=== PATIENT | female | born 1940 | race Caucasian/White ===

== ENCOUNTER → 2017-06-15 | Outpatient (CLI) | payer MEDICARE, BC ==
--- NOTE | 2017-06-15 15:35 | MR ---
MR brain without contrast HISTORY: Memory loss, mental status changes Multiplanar multisequence imaging obtained through the brain. There is no comparison. There is no restricted diffusion. There is no hemorrhage or hydrocephalus. Cortical atrophy is likely age-related. Scattered periventricular and subcortical and juxtacortical white matter hyperintensiti es are present on inversion recovery and T2-weighted sequences. There are normal vascular flow voids. The orbits show symmetric appearance. Cerebellopontine angles, corpus callosum, pituitary, cervical medullary junction are within normal limits. Hyperostosis frontalis interna changes present along the inner table of the frontal calvarium. Paranasal sinuses and mastoid air cells are well aerated. IMPRESSION: Age-related changes of atrophy and probable chronic small vessel ischemia.
== END | disposition home or self-care (01) ==
LOC: RADMRIMAIN 11:42
PROVIDERS: ATTEND Psychiatry & Neurology Neurology
DX: G31.1 Senile degeneration of brain, not elsewhere classified (principal)
CPT/HCPCS: 70551

== ENCOUNTER 2018-05-06 00:47 | Inpatient (IN) | payer MEDICARE, BC ==
[2018-05-06] MEDS ORDERED: HEPARIN SODIUM,PORCINE 5,000 UNIT/ML 1 ML VIAL IV STA (00:55)
[2018-05-06] MEDS ORDERED: SODIUM CHLORIDE 0.9% 1,000 ML IV STA ×2 (00:55)
--- NOTE | 2018-05-06 00:55 | ED ---
Chest Pain HPI - General Chief Complaint: Chest Pain Stated Complaint: STEMI Time Seen by Provider: 05/06/18 00:52 Source: EMS Mode of arrival: ambulatory Limitations: no limitations - History of Present Illness Initial Comments: Reena is a 78-year-old female with a history of hypertension, hyperlipidemia, diabetes who presents the emergency department today via EMS for evaluation of chest pain. Patient describes the pain as left-sided chest pain radiating to her shoulder. Pain started approximately an hour and a half ago. Was not associated with any dyspnea but was associated with diaphoresis and feeling very unwell. son at bedside does state that yesterday his mother was complaining of similar pain but in the right shoulder. Not associated with shortness of breath palpitations or lightheadedness. She did not have this evaluated. He also states that patient is currently being treated for bladder cancer, she has gross hematuria and scheduled to have a surgery next month. - Related Data Home Medications Medication Instructions Recorded Confirmed Atenolol [Tenormin] 25 mg PO DAILY 09/17/14 09/17/14 Baclofen [Lioresal] 10 mg PO TID PRN 09/17/14 09/17/14 [place]ito Cit/Mag/D3/Zn/Lead Athlete/Nadeem/Bor 1 tab PO DAILY 09/17/14 09/17/14 [Citracal-Vit D + Magnesium Tab] Cholecalciferol [Vitamin D3] 1,000 unit PO DAILY 09/17/14 09/17/14 Cinnamon Bark [Cinnamon] 1,000 mg PO DAILY 09/17/14 09/17/14 Clotrimazole/Betamethasone Dip 1 cream TOPICAL DIRECTED PRN 09/17/14 09/17/14 [Lotrisone Cream] Felodipine ER [Plendil] 5 mg PO DAILY 09/17/14 09/17/14 Insulin Glargine,Hum.rec.anlog 60 unit SQ DAILY 09/17/14 09/17/14 [Lantus Solostar] Losartan/Hydrochlorothiazide 1 each PO DAILY 09/17/14 09/17/14 [Hyzaar 100-25 Tablet] Omeprazole [PriLOSEC] 20 mg PO AC-SUPPER 09/17/14 09/17/14 Pravastatin Sodium [Pravachol] 40 mg PO HS 04/03/15 04/03/15 Previous Rx's Medication Instructions Recorded Aspirin 325 mg PO BID #1 tab 09/20/14 Docusate [Colace] 100 mg PO BID #60 capsule 09/20/14 HYDROcodone/APAP 5-325MG [[place] 1 - 2 each PO Q6HR PRN #90 tab 09/20/14 5-325] Allergies Allergy/AdvReac Type Severity Reaction Status Date / Time Penicillins AdvReac Mild Unknown Verified 05/06/18 00:52 Review of Systems ROS Statement: Those systems with pertinent positive or pertinent negative responses have been documented in the HPI. ROS Other: All systems not noted in ROS Statement are negative. EKG Findings - EKG Comments: EKG Findings:: Prehospital EKG was faxed to us at 1221, rate was 60 rhythm was sinus, normal axis, there were ST elevations in 23 and aVF with reciprocal depressions in aVL. This is consistent with an inferior wall HI. Repeat EKG upon arrival at 1257 Rate 64 rhythm sinus, persistent ST elevations in II, III, and F aVF, persistent depressions in aVL this is consistent with an inferior wall HI. Past Medical History Past Medical History: Diabetes Mellitus, Hyperlipidemia, Hypertension Additional Past Medical History / Comment(s): Restless leg syndrome History of Any Multi-Drug Resistant Organisms: None Reported Past Surgical History: Cholecystectomy Additional Past Surgical History / Comment(s): Arthroscopic knee surgery left, Left ankle surgery 09/17/2014 Past Anesthesia/Blood Transfusion Reactions: No Reported Reaction Past Psychological History: No Psychological Hx Reported Smoking Status: Former smoker Past Alcohol Use History: Rare - Past Family History Son(s) Family Medical History: No Reported History General Exam - General Exam Comments Initial Comments: Physical Exam GENERAL: Patient's color appears ashen, she is diaphoretic and distressed HENT: Normocephalic, Atraumatic. EYES: PERRL, EOMI PULMONARY: Unlabored respirations. No audible rales rhonchi or wheezing was noted. CARDIOVASCULAR: RRR ABDOMEN: Soft and nontender with normal bowel sounds. SKIN: Skin is clear with no lesions or rashes and otherwise unremarkable. : Deferred NEUROLOGIC: Patient is alert and oriented x3, pleasantly demented Moving all extremities spontaneously MUSCULOSKELETAL: Normal extremities with adequate strength and full range of motion. No lower extremity swelling or edema. No calf tenderness. PSYCHIATRIC: Normal psychiatric evaluation. Limitations: no limitations Limitations: no limitations Course Vital Signs 05/06/18 05/06/18 00:48 01:10 Temperature 97.7 F Pulse Rate 64 62 Respiratory 18 20 Rate Blood Pressure 134/66 140/65 O2 Sat by Pulse 98 98 Oximetry Chest Pain MDM - Differential Diagnosis AMI - MDM The patient's prehospital EKG was reviewed, consistent with a STEMI. She care was discussed with cardiology on-call Dr. Marie who agrees with activating the component lab tech. Lab was activated prior to patient's arrival The patient was seen and evaluated immediately upon arrival to the emergency department, patient with left-sided chest pain radiating to the left shoulder, diaphoresis. STEMI protocol followed Patient received appropriate dose of aspirin as well as 2 sublingual nitro prior to arrival. She remains hypertensive. At this time we'll hold the nitro and continuous STEMI protocol Repeat EKG again confirms a STEMI patient care was discussed with patient's primary care provider who is aware that she will be admitted after component lab tech Patient's son arrived at bedside, he states that the patient's primary care physician is X a Dr. Araujo's group, patient has not followed with Dr. 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 Will change admitting physician. Patient remained hemodynamically stable prior to transfer to the [facility]. Disposition Clinical Impression: ST elevation myocardial infarction (STEMI) Disposition: ADMITTED IP TO THIS HOSP Condition: Serious
[2018-05-06] MEDS ORDERED: NALOXONE 0.4 MG/ML 1 ML VIAL IV PRN (00:59)
[2018-05-06] MEDS ORDERED: LIDOCAINE 1% INJ 10MG/ML (20 ML MDV) ONE (01:05)
[2018-05-06] MEDS: HEPARIN SOD,PORK IN 0.45% NACL 25,000 UNIT in 0.45% NACL 1 500ML.BAG IV SCH (01:10)
[2018-05-06 01:11] LABS: Basophils % (A) 0 %; Eosinophils # (A) 0.1 k/uL (0-0.7); Eosinophils % (A) 1 %; HCT 30.1 % (34.0-46.0); HGB 10.2 gm/dL (11.4-16.0); Lymphocytes % (A) 10 %; MCH 31.3 pg (25.0-35.0); MCV 92.1 fL (80.0-100.0); Mean Platelet Volume 6.5; Monocytes # (A) 0.5 k/uL (0-1.0); Monocytes % (A) 5 %; Neutrophils # (A) 8.6 k/uL (1.3-7.7); Neutrophils % (A) 84 %; Platelet Count 262 k/uL (150-450); RBC 3.27 m/uL (3.80-5.40); RDW 12.6 % (11.5-15.5); WBC 10.3 k/uL (3.8-10.6)
[2018-05-06] MEDS ORDERED: SODIUM CHLORIDE 0.9% 1,000 ML IV ONE (01:17)
[2018-05-06 01:21] LABS: INR 1.1 (<1.2); Partial Thromboplastin Time 23.3 sec (22.0-30.0); Prothrombin Time 10.9 sec (9.0-12.0)
[2018-05-06 01:32] LABS: Albumin 3.7 g/dL (3.5-5.0); Calcium 8.2 mg/dL (8.4-10.2); Potassium 3.7 mmol/L (3.5-5.1); Total Bilirubin 0.6 mg/dL (0.2-1.3); Total Protein 6.5 g/dL (6.3-8.2)
[2018-05-06] MEDS ORDERED: MIDAZOLAM 2 MG/2 ML VIAL ONE (01:34)
[2018-05-06] MEDS ORDERED: LIDOCAINE 1% INJ 10MG/ML (20 ML MDV) SQ ONE (01:35)
[2018-05-06] MEDS ORDERED: MIDAZOLAM 2 MG/2 ML VIAL IV ONE (01:35)
[2018-05-06] MEDS ORDERED: VERAPAMIL 2.5 MG/ML 2 ML AMP ONE (01:37)
[2018-05-06] MEDS: VERAPAMIL SYRINGE (5 MG/10 ML) INTRAARTER ONE ×2 (01:38→02:21)
[2018-05-06] MEDS ORDERED: BIVALIRUDIN BOLUS 250 MG/50 ML IV ONE (01:45)
[2018-05-06] MEDS ORDERED: CLOPIDOGREL 75 MG TAB ONE ×2 (01:46)
[2018-05-06] MEDS ORDERED: BIVALIRUDIN 250 MG in SODIUM CHLORIDE 0.9% 50 ML IV ONE (01:46)
--- NOTE | 2018-05-06 01:46 | XR ---
EXAMINATION TYPE: XR chest 1V portable DATE OF EXAM: 05/06/2018 COMPARISON: 05/20/2012 HISTORY: Chest pain TECHNIQUE: Single frontal view of the chest is obtained. FINDINGS: There is no heart failure nor confluent pneumonic infiltrate. There is subsegmental atelec tasis in the left lower lobe. There are chest leads. IMPRESSION: Mild subsegmental atelectasis. No heart failure seen.
[2018-05-06] MEDS ORDERED: CLOPIDOGREL 75 MG TAB PO ONE (01:50)
[2018-05-06 01:51] LABS: Creatine Kinase MB 4.1 ng/mL (0.0-2.4)
[2018-05-06 01:58] LABS: Troponin I 0.448 ng/mL (0.000-0.034)
[2018-05-06] MEDS ORDERED: NITROGLYCERIN 1000MCG/10ML SYRINGE INTRACORON ONE (02:05)
[2018-05-06] MEDS ORDERED: fentaNYL (PF) 50 MCG/ML 2 ML AMP ONE (02:13)
[2018-05-06] MEDS ORDERED: fentaNYL (PF) 50 MCG/ML 2 ML AMP IV ONE (02:14)
[2018-05-06] MEDS ORDERED: IOPAMIDOL-370 125ML BTL INJ ONE (02:19)
[2018-05-06] MEDS ORDERED: MAG HYDROX/AL HYDROX/SIMETH 30 ML CUP PO PRN (02:36)
[2018-05-06] MEDS ORDERED: RX INFO: IV CONTRAST WAS GIVEN 1 EACH MISC MISCELLANE PRN (02:36)
[2018-05-06] MEDS ORDERED: NITROGLYCERIN SL TABS 0.4 MG TAB SUBLINGUAL PRN (02:36)
[2018-05-06] MEDS ORDERED: ZOLPIDEM 5 MG TAB PO PRN (02:36)
[2018-05-06] MEDS ORDERED: ATROPINE SULFATE 0.1 MG/ML 10ML SYRINGE IV PRN (02:36)
--- NOTE | 2018-05-06 02:36 | P.CRDCN ---
History of Present Illness Consult date: 05/06/18 Chief complaint: Chest discomfort History of present illness: This is a pleasant 78-year-old female patient with a past medical history significant for diabetes, hypertension, and dyslipidemia, who was brought to the emergency room by ambulance for further evaluation of chest discomfort. The patient overall is a poor historian and she does have short memory issue. She was in her usual state of health until earlier today when she started experiencing chest discomfort, mainly on the left side of the chest, as a sharp kind of discomfort, with some radiation to the left shoulder. The chest discomfort was not associated with any shortness of breath, diaphoresis, nausea or vomiting, dizziness or lightheadedness, or syncope. Ambulance was called and EKG was performed and revealed an acute inferior ST elevation myocardial infarction and because of that the cardiac ammunition assembly i laborer was activated and the patient underwent an emergent heart catheterization and was found to have critical disease involving the mid right coronary artery which was heavily calcified. She underwent successful stenting of the right coronary artery in the midportion using a drug-eluting stent with reduction of stenosis from 99% to 0%. By the end of the procedure, the patient was pain-free. The door to balloon was 61 minutes. In terms of past medical history, the patient does have diabetes and she is on insulin, also hypertension as well as dyslipidemia. She also does have restless leg syndrome. She did undergo cholecystectomy in the past. The patient does not smoke or drink alcohol. She used to smoke in the past but she quit long time ago. Past Medical History Past Medical History: Diabetes Mellitus, Hyperlipidemia, Hypertension Additional Past Medical History / Comment(s): Restless leg syndrome History of Any Multi-Drug Resistant Organisms: None Reported Past Surgical History: Cholecystectomy Additional Past Surgical History / Comment(s): Arthroscopic knee surgery left, Left ankle surgery 09/17/2014 Past Anesthesia/Blood Transfusion Reactions: No Reported Reaction Past Psychological History: No Psychological Hx Reported Smoking Status: Former smoker Past Alcohol Use History: Rare - Past Family History Son(s) Family Medical History: No Reported History Medications and Allergies Home Medications Medication Instructions Recorded Confirmed Type RX: Atenolol [Tenormin] 25 mg PO DAILY 09/17/14 09/17/14 History RX: Baclofen [Lioresal] 10 mg PO TID PRN 09/17/14 09/17/14 History RX: [place] Cit/Mag/D3/Zn/[place]/Nadeem/Bor 1 tab PO DAILY 09/17/14 09/17/14 History [Citracal-Vit D + Magnesium Tab] RX: Cholecalciferol [Vitamin D3] 1,000 unit PO DAILY 09/17/14 09/17/14 History RX: Cinnamon Bark [Cinnamon] 1,000 mg PO DAILY 09/17/14 09/17/14 History RX: Clotrimazole/Betamethasone Dip 1 cream TOPICAL DIRECTED PRN 09/17/1408/29 History [Lotrisone Cream] RX: Felodipine ER [Plendil] 5 mg PO DAILY 09/17/14 09/17/14 History RX: Insulin Glargine,Hum.rec.anlog 60 unit SQ DAILY 09/17/14 09/17/14 History [Lantus Solostar] RX: Losartan/Hydrochlorothiazide 1 each PO DAILY 09/17/14 09/17/14 History [Hyzaar 100-25 Tablet] RX: Omeprazole [PriLOSEC] 20 mg PO AC-SUPPER 09/17/14 09/17/14 History RX: Pravastatin Sodium [Pravachol] 40 mg PO HS 09/17/14 09/17/14 History RX: Aspirin 325 mg PO BID #1 tab 09/20/14 Rx RX: Docusate [Colace] 100 mg PO BID #60 capsule 09/20/14 Rx RX: HYDROcodone/APAP 5-325MG 1 - 2 each PO Q6HR PRN #90 tab 09/20/14 Rx [[place] 5-325] Allergies Allergy/AdvReac Type Severity Reaction Status Date / Time Penicillins AdvReac Mild Unknown Verified 05/06/18 00:52 Physical Exam Vitals: Vital Signs Temp Pulse Resp BP Pulse Ox 05/06/18 01:10 62 20 140/65 98 05/06/18 00:48 97.7 F 64 18 134/66 98 Intake and Output 05/05/18 05/05/18 05/06/18 14:59 22:59 06:59 Intake Total 350 Balance 350 Intake: IV 350 Other: Weight 83 kg - Respiratory Respiratory: bilateral: CTA - Cardiovascular Rhythm: regular Heart sounds: normal: S1, S2 Results 05/06/18 01:00 05/06/18 01:00 Cardiac Enzymes 05/06/18 05/06/18 Range/Units 01:00 01:00 AST 23 (14-36) U/L CK-MB (CK-2) 4.1 H (0.0-2.4) ng/mL Troponin I 0.448 H* (0.000-0.034) ng/mL Coagulation 05/06/18 Range/Units 01:00 PT 10.9 (9.0-12.0) sec APTT 23.3 (22.0-30.0) sec CBC 05/06/18 Range/Units 01:00 WBC 10.3 (3.8-10.6) k/uL RBC 3.27 L (3.80-5.40) m/uL Hgb 10.2 L (11.4-16.0) gm/dL Hct 30.1 L (34.0-46.0) % Plt Count 262 (150-450) k/uL Comprehensive Metabolic Panel 05/06/18 Range/Units 01:00 Sodium 126 L (137-145) mmol/L Potassium 3.7 (3.5-5.1) mmol/L Chloride 91 L (98-107) mmol/L Carbon Dioxide 20 L (22-30) mmol/L BUN 25 H (7-17) mg/dL Creatinine 1.10 H (0.52-1.04) mg/dL Glucose 160 H (74-99) mg/dL Calcium 8.2 L (8.4-10.2) mg/dL AST 23 (14-36) U/L ALT 30 (9-52) U/L Alkaline Phosphatase 57 (38-126) U/L Total Protein 6.5 (6.3-8.2) g/dL Albumin 3.7 (3.5-5.0) g/dL Current Medications Generic Name Dose Route Start Last Admin Trade Name Freq PRN Reason Stop Dose Admin Hydrocodone Bitart/Acetaminophen 1 - 2 each 05/06/18 01:01 [place] 5-325 PO Q6HR PRN Pain Aspirin 325 mg 05/06/18 09:00 Aspirin PO BID [facility] Atenolol 25 mg 05/06/18 09:00 Tenormin PO DAILY [facility] Heparin Sodium/Sodium Chloride 500 mls @ 19.92 mls/hr 05/06/18 01:00 01:10 25,000 unit/ Sodium Chloride IV 12 units/kg/hr .Q24H [facility] 19.92 mls/hr Administration Protocol 12 UNITS/KG/HR Insulin Aspart 0 unit 05/06/18 07:30 Novolog SQ ACHS [facility] Protocol Naloxone HCl 0.2 mg 05/06/18 00:59 Narcan IV Q2M PRN Opioid Reversal Pravastatin Sodium 40 mg 05/06/18 21:00 Pravachol PO HS [facility] Intake and Output 05/05/18 05/05/18 05/06/18 14:59 22:59 06:59 Intake Total 350 Balance 350 Intake: IV 350 Other: Weight 83 kg Patient Weight 05/06/18 06:59 Weight 83 kg 05/06/18 01:00 05/06/18 01:00 Assessment and Plan Assessment: Assessment #[address] elevation myocardial infarction #2 status post PCI of the mid right coronary artery #3 diabetes #4 hypertension #5 dyslipidemia Plan #1 the patient will be initiated on dual antiplatelet therapy #2 aggressive cholesterol control and high intensity statin #3 anti-ischemic medication. She will be initiated on beta isaura as well as MADISON inhibitor #4 an echocardiogram to assess the LV function #5 ICU admission #6 follow-up with the patient. Thank you for allowing us participate in her care and we will continue following up with the patient
[2018-05-06] MEDS ORDERED: SODIUM CHLORIDE 0.9% 1,000 ML IV SCH (02:45)
[2018-05-06 03:45] LABS: Glucose,Whole Blood 170 mg/dL (75-99)
[2018-05-06 05:38] LABS: HCT 26.5 % (34.0-46.0); MCH 31.5 pg (25.0-35.0); MCHC 34.2 g/dL (31.0-37.0); MCV 92.1 fL (80.0-100.0); Mean Platelet Volume 6.7; Platelet Count 236 k/uL (150-450); RBC 2.87 m/uL (3.80-5.40); RDW 12.7 % (11.5-15.5); WBC 7.9 k/uL (3.8-10.6)
[2018-05-06 05:52] LABS: Calcium 8.4 mg/dL (8.4-10.2); Magnesium 1.1 mg/dL (1.6-2.3); Phosphorus 3.9 mg/dL (2.5-4.5); Potassium 3.9 mmol/L (3.5-5.1)
--- NOTE | 2018-05-06 07:44 | XR ---
EXAMINATION TYPE: XR chest 1V portable DATE OF EXAM: 05/06/2018 CLINICAL HISTORY: Difficulty breathing progress study. TECHNIQUE: Single AP portable upright view of the chest is obtained. COMPARISON: Chest x-ray from earlier today FINDINGS: There is stable linear opacity left lung base. No new focal airspace opacity, pleural effu jyoti, or pneumothorax is seen bilaterally. Cardiac silhouette size is stable and enlarged with athero sclerotic aorta. Osseous structures are intact. IMPRESSION: Overall stable findings, cardiomegaly with chronic left basilar linear scarring and/or atelectasis. No new infiltrate seen.
[2018-05-06 07:57] LABS: Glucose,Whole Blood 127 mg/dL (75-99)
[2018-05-06] MEDS: INSULIN ASPART 100 UNIT/ML 1 ML 10 ML VIAL SQ SCH ×4 (08:09→20:28)
--- NOTE | 2018-05-06 08:28 | LTR ---
DATE OF SERVICE: 05/06/2018 RE: Reena Dowling Dear Dr. Chavira; Ms. Reena Dowling was brought to the emergency room at [facility] with chest discomfort and she was found to be in acute inferior ST-elevation myocardial infarction. I did perform a heart catheterization on her and that revealed critical disease involving the right coronary artery where she underwent successful stenting of the right coronary artery with good angiographic results and without any complication. Thank you for allowing us to participate in her care and please do not hesitate to call if you have any question or concern. Sincerely, MD MARK Saha / AN: [id number] /
--- NOTE | 2018-05-06 08:28 | CC ---
CARDIAC CATHETERIZATION REPORT DATE OF SERVICE: 05/06/2018 PERFORMING PHYSICIAN: You Marie MD, Will Call Order Clerk. PROCEDURE PERFORMED: 1. Selective right and left coronary angiogram. 2. Left heart catheterization. 3. Successful stenting of the mid right coronary artery using 3.0 x 18 mm Xience drug- eluting stent with reduction of stenosis from 99% to 0%. INDICATION: This is a pleasant 78-year-old female patient with known history of diabetes, hypertension, dyslipidemia, was experiencing symptoms of chest discomfort and ambulance was called where the patient was found to be in acute inferior ST-elevation myocardial infarction. She was brought emergently to the cardiac laborer sawmill. APPROACH: Right radial artery. COMPLICATION: None. LEVEL OF SEDATION: Moderate with sedation length of 57 minutes. The aorta balloon is 61 minutes. PROCEDURE DESCRIPTION: After obtaining an informed consent, the patient was brought to the cardiac laborer sawmill. The right radial artery was cannulated using micropuncture technique, the micropuncture wire passed easily, then I placed a 6-[place] sheath in the right radial artery. After that, I gave the patient 2 mg of verapamil IA. Selective right and left coronary angiogram was performed using JR4 and JL3.5 catheters. Left heart catheterization was performed using JR4 catheter as well. For the PCI of the RCA, please see a separate paragraph for that. SELECTIVE CORONARY ANGIOGRAM: 1. The right coronary artery is a large caliber vessel. It is a dominant vessel. The proximal RCA appeared to have mild disease only. The mid RCA is heavily calcified with eccentric plaque, appears to be in the range of 99%. The RCA distally has mild disease only and bifurcates into PDA and PLV branches, both have mild diffuse disease only. 2. The left main is angiographically normal. It bifurcates into left circumflex and left anterior descending artery. 3. The left circumflex is a large caliber vessel. It is a nondominant vessel. The proximal circumflex appeared to be angiographically normal. The mid circumflex is normal and gives rise into the first OM branch which is a moderate caliber vessel with mild disease only. The circumflex after the first OM has eccentric lesion, appears to be in the range of 30% to 40% only. After that, the circumflex gives rise into a second OM branch which appeared to be angiographically normal. It distally appeared to be angiographically normal as well. 4. The LAD, the proximal LAD appeared to have mild disease only. This is by the bifurcation of the first septal stunner animal. The mid LAD is angiographically normal and gives rise into the first diagonal branch which appears to be angiographically normal and the LAD distally is normal and becomes a medium caliber vessel. HEMODYNAMICS: The left ventricular end-diastolic pressure was about 12 mmHg and mild gradient was seen across the aortic valve. PCI of the RCA: Anticoagulation was initiated using Angiomax. Subsequently I did use JR4 guide and the RCA was engaged. A whisper wire was used to wire the right coronary artery. I did aspiration thrombectomy from the right coronary artery, but the catheter will not cross the whole lesion in the mid RCA. At that point, I did balloon angioplasty where initially I tried to advance 2 5 x 12 mm balloon but the balloon will not cross the mid RCA in spite of doubling wire the RCA using a whisper wire and run- through wire. After that I tried using 1.5 mm balloon and with that I was able to advance the balloon to the mid RCA where I did balloon angioplasty using this balloon then using the 2.5 mm balloon. After that, I deployed a 3.0 x 18 mm Xience drug- eluting stent where the stent was positioned under fluoroscopy guidance and deployed under 14 atmospheres for 20 seconds. I postdilated the stent using a 3.25 mm NC balloon. Final angiogram showed excellent results. CONCLUSION: 1. Acute inferior ST-elevation myocardial infarction. 2. Critical disease involving the mid right coronary artery which is heavily calcified. 3. Successful stenting of the mid RCA using drug-eluting stent with good angiographic results and reduction of stenosis from 99% to 0%. 4. Mild to moderate nonobstructive disease involving the left coronary artery system. POSTPROCEDURE MANAGEMENT: 1. Dual anti-platelet therapy. 2. Risk factors modifications. 3. An echocardiogram with Doppler to assess LV function. 4. Follow up with the patient. MMODL / IJN: [id number] /
[2018-05-06] MEDS ORDERED: Magnesium Replacement Protocol 1 EACH MISC MISCELLANE PRN (09:31)
[2018-05-06] MEDS: MAGNESIUM SULFATE-D5W PMX 1 GM in DEXTROSE/WATER 1 100ML.BAG IVPB SCH ×3 (10:21→14:14)
[2018-05-06] MEDS: ATENOLOL 25 MG TAB PO SCH (10:31)
[2018-05-06] MEDS: ASPIRIN 325 MG TAB PO SCH ×2 (10:35→20:28)
--- NOTE | 2018-05-06 11:13 | ECHOF ---
Referral Reason:stemi MEASUREMENTS -------- HEIGHT: 160.0 cm WEIGHT: 82.6 kg BP: 131/58 RVIDd: 2.4 cm (< 3.3) IVSd: 1.1 cm (0.6 - 1.1) LVIDd: 4.5 cm (3.9 - 5.3) LVPWd: 1.1 cm (0.6 - 1.1) IVSs: 1.7 cm LVIDs: 2.4 cm LVPWs: 1.8 cm LAESV Index (A-L): 23.84 ml/m Ao Diam: 3.2 cm (2.0 - 3.7) AV Cusp: 1.6 cm (1.5 - 2.6) LA Diam: 3.9 cm (2.7 - 3.8) MV EXCURSION: 12.495 mm (> 18.000) MV EF SLOPE: 69 mm/s (70 - 150) EPSS: 0.5 cm MV E Evans: 1.30 m/s MV DecT: 219 ms MV A Evans: 1.28 m/s MV E/A Ratio: 1.01 AR PHT: 644 ms RAP: 5.00 mmHg RVSP: 16.30 mmHg FINDINGS -------- Sinus rhythm. This was a technically good study. The left ventricular size is normal. Left ventricular wall thickness is normal. Overall left vent ricular systolic function is low-normal with, an EF between 50 - 55 %. Basal inferolateral hypokine sis. The right ventricle is normal in size and function. Normal LA size by volume 22+/-6 ml/m2. The right atrium is normal in size. Aortic valve is trileaflet and is mildly thickened. There is mild aortic regurgitation. The mitral valve leaflets are mildly thickened. Mild mitral regurgitation is present. Mild tricuspid regurgitation present. The right ventricular systolic pressure, as measured by Doppl er, is 16.30mmHg. Trace/mild (physiologic) pulmonic regurgitation. The aortic root size is normal. IVC Not well visulized. The pericardium is normal. CONCLUSIONS -------- 1. Sinus rhythm. 2. This was a technically good study. 3. The left ventricular size is normal. 4. Left ventricular wall thickness is normal. 5. Overall left ventricular systolic function is low-normal with, an EF between 50 - 55 %. 6. Basal inferolateral hypokinesis. 7. The right ventricle is normal in size and function. 8. Normal LA size by volume 22+/-6 ml/m2. 9. The right atrium is normal in size. 10. Aortic valve is trileaflet and is mildly thickened. 11. There is mild aortic regurgitation. 12. The mitral valve leaflets are mildly thickened. 13. Mild mitral regurgitation is present. 14. Mild tricuspid regurgitation present. 15. The right ventricular systolic pressure, as measured by Doppler, is 16.30mmHg. 16. Trace/mild (physiologic) pulmonic regurgitation. 17. The aortic root size is normal. 18. IVC Not well visulized. 19. The pericardium is normal. GEAR GRINDING MACHINE OPERATOR: Rocio Munoz RDCS
[2018-05-06 11:54] LABS: Glucose,Whole Blood 150 mg/dL (75-99)
--- NOTE | 2018-05-06 13:34 | PN ---
PROGRESS NOTE The patient's medical records reviewed. This patient presented with acute inferior wall myocardial infarction, underwent stent to the RCA. She is sitting comfortably in the bed. Denies any chest pain or shortness of breath. No respiratory distress is noted. No dysrhythmias are noted. Blood pressure is 139/57 mmHg. First and second heart sounds are normal. Lungs are clear to auscultation and percussion. Echocardiogram reveals small area of inferobasal hypokinesia. We will continue the current medications and we will discontinue Pravachol and start the patient on Lipitor 80 mg daily. MMODL / IJN: [id number] /
--- NOTE | 2018-05-06 16:54 | P.HPIM ---
History of Present Illness H&P Date: 05/06/18 Chief Complaint: Acute STEMI, left chest pain This is a 78-year-old pleasant female patient of Dr. Joshua Cerna underlying history of dementia, diabetes mellitus type 2, hypertension, hyperlipidemia, who is currently a very poor historian. Patient provided some limited history that says chest discomfort and left shoulder discomfort, requiring ER evaluation. Patient was resting at that time, she denies any shortness of breath or diaphoresis no nausea or vomiting, no lightheadedness or dizziness, no syncope. EMS was called in, EKG was performed that shows acute ST segment elevation in the inferior leads, and was sent in directly to the cardiac scientific laboratory supervisor and went for an emergent cardiac cath requiring drug-eluting stent involving the RCA from a 99% stenosis to 0% stenosis post-stenting. Patient was chest pain-free after the procedure, currently now requiring double antiplatelet platelet agents. Patient was last seen by Dr. Lewis 04/08/2018 for diabetic foot [id number] encounter for diabetic shoes Particular history is positive for hematuria on seen by Dr. Martinez and was referred to [facility] Dr. Roberts [phone] for which bladder surgery would be performed in May 2018, for the suspicious mass highly suggestive of malignancy Echocardiogram performed 05/06/2018 normal sinus rhythm, EF 50-55%, basal inferolateral hypokinesia, thickened aortic valve, mild aortic regurgitation, mild TR, mild MR, right ventricular systolic pressure of 16, aortic root size is normal, normal pericardium Cardiac cath report 05/06/2018, Dr. Katz, showed right coronary artery need stenosis from a 99% to 0% using Xience drug-eluting stent 3.0 x 18 mm, through the right radial artery approach. Findings shows RCA distally with mild disease , PDA and PLV branches have mild disease, left main normal, left circumflex complex normal, however there is 30% to 40% occlusive disease after the first OM branch, proximal LAD mild disease, Patient was comfortable when seen in the presence of the son who is POA, full discussion was made regarding the intervention for the STEMI as well as the need to delay the bladder surgery as it would require treatment of the cardiac occlusive disease first and was recommended to have cardiac clearance to be off the double antiplatelet agents prior to the anticipated bladder surgery Review of Systems Constitutional: Reports as per HPI, Denies anorexia, Denies chills, Denies chronic headaches, Denies chronic pain, Denies daytime sleepiness, Denies fatigue, Denies fever, Denies lethargy, Denies malaise, Denies night sweats, Denies poor appetite, Denies sweats, Denies weakness, Denies weight gain, Denies weight loss Ears, nose, mouth and throat: Reports as per HPI, Denies ant. neck pain, Denies bleeding gums, Denies dental pain, Denies dysphagia, Denies epistaxis, Denies headache, Denies hoarseness, Denies mouth pain, Denies nasal congestion, Denies nasal discharge, Denies neck fullness/pressure, Denies neck lump, Denies nose pain, Denies odynophagia, Denies post-nasal drip, Denies sinus pain, Denies sinus pressure, Denies swelling in mouth, Denies swelling in throat, Denies sore throat, Denies vertigo, Denies voice changes Cardiovascular: Reports as per HPI, Reports decreased exercise tolerance, Denies chest pain, Denies claudication, Denies dyspnea on exertion, Denies edema , Denies high blood pressure, Denies irregular heart beat, Denies leg edema, Denies lightheadedness, Denies orthopnea, Denies palpitations, Denies paroxysmal nocturnal dyspnea, Denies phlebitis, Denies rapid heart beat, Denies shortness of breath, Denies syncope Respiratory: Reports as per HPI, Denies congestion, Denies cough, Denies cough with sputum, Denies dyspnea, Denies excessive sputum, Denies hemoptysis, Denies home oxygen, Denies pain, Denies pain on inspiration, Denies pleurisy, Denies respiratory infections, Denies sleep apnea, Denies snoring, Denies wheezing Gastrointestinal: Reports as per HPI, Denies abdominal pain, Denies belching, Denies bloating, Denies BRBPR, Denies change in bowel habits, Denies coffee ground emesis, Denies constipation, Denies diarrhea, Denies dyspepsia, Denies early satiety, Denies excessive gas, Denies heartburn, Denies hematemesis, Denies hematochezia, Denies indigestion, Denies jaundice, Denies lactose intolerance, Denies loss of appetite, Denies melena, Denies nausea, Denies vomiting Genitourinary: Reports as per HPI Menstruation: Reports as per HPI, Reports postmenopausal Musculoskeletal: Reports as per HPI, Denies arm numbness/tingling, Denies atrophy, Denies fractures, Denies frequent falls, Denies gait dysfunction, Denies hot joints, Denies leg numbness/tingling, Denies limitation of motion, Denies loss of height, Denies low back pain, Denies morning stiffness, Denies muscle cramps, Denies muscle weakness, Denies myalgias, Denies neck pain, Denies neck stiffness, Denies prior amputations, Denies redness of joints, Denies shooting arm pain, Denies shooting leg pain Integumentary: Reports as per HPI Neurological: Reports as per HPI, Reports memory loss Psychiatric: Reports as per HPI, Denies anhedonia, Denies anxiety, Denies anxiety attacks, Denies change in appetite, Denies change in libido, Denies change in sleep habits, Denies confusion, Denies depression, Denies difficulty concentrating, Denies disorientation, Denies hallucinations, Denies hopelessness , Denies hypersomnia, Denies insomnia, Denies irritability, Denies memory loss, Denies mood swings, Denies paranoia, Denies sadness/tearfulness, Denies sleep disturbances, Denies suicidal ideation Endocrine: Reports as per HPI Hematologic/Lymphatic: Reports as per HPI Allergic/Immunologic: Reports as per HPI Past Medical History Past Medical History: Coronary Artery Disease (CAD), Cancer, Chest Pain / Angina , Dementia, Diabetes Mellitus, Hyperlipidemia, Hypertension, Memory Impairment, Myocardial Infarction (MN), Osteoarthritis (OA) Additional Past Medical History / Comment(s): Restless leg syndrome, Bladder Cancer with Gross hematuria Last Myocardial Infarction Date:: 05/06/18 History of Any Multi-Drug Resistant Organisms: None Reported Past Surgical History: Cholecystectomy, Heart Catheterization With Stent Additional Past Surgical History / Comment(s): Arthroscopic knee surgery left, Left ankle surgery 09/17/2014, Past Anesthesia/Blood Transfusion Reactions: No Reported Reaction Date of Last Stent Placement:: 05/06/18 Smoking Status: Former smoker - Past Family History Son(s) Family Medical History: No Reported History (Healthy) Father Family Medical History: Dementia Mother Family Medical History: Cancer (Pancreas) Sister(s) Family Medical History: Cancer (Lung cancer) Brother(s) Family Medical History: No Reported History Medications and Allergies Home Medications Medication Instructions Recorded Confirmed Type Atenolol [Tenormin] 25 mg PO DAILY 09/17/14 09/17/14 History Baclofen [Lioresal] 10 mg PO TID PRN 09/17/14 09/17/14 History Benito Cit/Mag/D3/Zn/Middle School Professional/Nadeem/Bor 1 tab PO DAILY 09/17/14 09/17/14 History [Citracal-Vit D + Magnesium Tab] Cholecalciferol [Vitamin D3] 1,000 unit PO DAILY 09/17/14 09/17/14 History Cinnamon Bark [Cinnamon] 1,000 mg PO DAILY 09/17/14 09/17/14 History Clotrimazole/Betamethasone Dip 1 cream TOPICAL DIRECTED PRN 09/17/14 History [Lotrisone Cream] Felodipine ER [Plendil] 5 mg PO DAILY 09/17/14 09/17/14 History Insulin Glargine,Hum.rec.anlog 60 unit SQ DAILY 09/17/14 09/17/14 History [Lantus Solostar] Losartan/Hydrochlorothiazide 1 each PO DAILY 09/17/14 09/17/14 History [Hyzaar 100-25 Tablet] Omeprazole [PriLOSEC] 20 mg PO AC-SUPPER 09/17/14 09/17/14 History Pravastatin Sodium [Pravachol] 40 mg PO HS 09/17/14 09/17/14 History Aspirin 325 mg PO BID #1 tab 09/20/14 Rx Docusate [Colace] 100 mg PO BID #60 capsule 09/20/14 Rx HYDROcodone/APAP 5-325MG [[place] 1 - 2 each PO Q6HR PRN #90 tab 09/20/14 Rx 5-325] Allergies Allergy/AdvReac Type Severity Reaction Status Date / Time Penicillins AdvReac Mild Unknown Verified 05/06/18 00:52 Physical Exam Vitals: Vital Signs Temp Pulse Pulse Resp BP BP Pulse Ox 05/06/18 15:00 70 19 110/52 97 05/06/18 14:00 70 16 140/74 96 05/06/18 13:00 97.6 F 67 13 120/66 97 05/06/18 12:00 62 16 136/57 97 05/06/18 11:00 74 14 139/57 96 05/06/18 10:30 73 15 157/95 97 05/06/18 10:00 97.9 F 88 17 103/54 97 05/06/18 09:30 79 6 L 103/54 96 05/06/18 09:00 79 16 144/65 95 05/06/18 08:30 70 16 144/65 96 05/06/18 08:20 14 05/06/18 08:00 68 13 144/65 97 05/06/18 07:30 80 17 122/67 97 05/06/18 07:00 80 14 131/58 94 L 05/06/18 06:30 78 18 127/58 96 05/06/18 06:00 75 14 114/71 95 05/06/18 05:30 79 25 H 151/54 95 05/06/18 05:00 77 16 154/50 96 05/06/18 04:30 81 13 134/52 97 05/06/18 04:21 78 15 130/59 97 05/06/18 04:00 98 F 81 15 148/66 100 05/06/18 03:51 98 F 76 14 134/88 99 05/06/18 01:10 62 20 140/65 98 05/06/18 00:48 97.7 F 64 18 134/66 98 Intake and Output 05/06/18 05/06/18 05/06/18 06:59 14:59 22:59 Intake Total 685 500 Output Total 350 700 101 Balance 335 -200 -101 Intake: IV 685 500 Magnesium Sulfate-D5w Pmx 300 1 gm In Dextrose/Water 1 100ml.bag @ 100 mls/hr IVPB Q1H [facility] Rx#: [id number] Sodium Chloride 0.9% 1, 300 200 000 ml @ 100 mls/hr IV . Q10H [facility] Rx#:[id number] Output: Urine 350 700 100 Stool 1 Other: Voiding Method Bedpan Bedpan # Voids 1 Weight 83 kg 83 kg - Constitutional General appearance: cooperative, no acute distress, obese - EENT Eyes: anicteric sclerae, EOMI, PERRLA, dentition normal, normal appearance ENT: hearing grossly normal, NA/AT, normal oropharynx - Neck Neck: normal ROM - Respiratory Respiratory: bilateral: CTA, negative: diminished, dullness, rales - Cardiovascular Rhythm: regular Heart sounds: normal: S1, S2 Abnormal Heart Sounds: systolic murmur - Gastrointestinal General gastrointestinal: normal bowel sounds, tenderness (None) - Integumentary Integumentary: normal, normal turgor - Neurologic Neurologic: CNII-XII intact - Musculoskeletal Musculoskeletal: gait normal, strength equal bilaterally - Psychiatric Psychiatric: A&O x's 3, appropriate affect, intact judgment & insight Results CBC & Chem 7: 05/06/18 05:10 05/06/18 05:10 Labs: Abnormal Lab Results - Last 24 Hours (Table) 05/06/18 05/06/18 05/06/18 Range/Units 01:00 01:00 01:00 RBC 3.27 L (3.80-5.40) m/uL Hgb 10.2 L (11.4-16.0) gm/dL Hct 30.1 L (34.0-46.0) % Neutrophils # 8.6 H (1.3-7.7) k/uL Sodium 126 L (137-145) mmol/L Chloride 91 L (98-107) mmol/L Carbon Dioxide 20 L (22-30) mmol/L BUN 25 H (7-17) mg/dL Creatinine 1.10 H (0.52-1.04) mg/dL Glucose 160 H (74-99) mg/dL POC Glucose (mg/dL) (75-99) mg/dL Calcium 8.2 L (8.4-10.2) mg/dL Magnesium (1.6-2.3) mg/dL CK-MB (CK-2) 4.1 H (0.0-2.4) ng/mL Troponin I 0.448 H* (0.000-0.034) ng/mL 05/06/18 05/06/18 05/06/18 Range/Units 03:43 05:10 05:10 RBC 2.87 L (3.80-5.40) m/uL Hgb 9.0 L (11.4-16.0) gm/dL Hct 26.5 L (34.0-46.0) % Neutrophils # (1.3-7.7) k/uL Sodium 123 L (137-145) mmol/L Chloride 90 L (98-107) mmol/L Carbon Dioxide 20 L (22-30) mmol/L BUN 23 H (7-17) mg/dL Creatinine 1.05 H (0.52-1.04) mg/dL Glucose 145 H (74-99) mg/dL POC Glucose (mg/dL) 170 H (75-99) mg/dL Calcium (8.4-10.2) mg/dL Magnesium 1.1 L (1.6-2.3) mg/dL CK-MB (CK-2) (0.0-2.4) ng/mL Troponin I (0.000-0.034) ng/mL 05/06/18 05/06/18 Range/Units 07:55 11:34 RBC (3.80-5.40) m/uL Hgb (11.4-16.0) gm/dL Hct (34.0-46.0) % Neutrophils # (1.3-7.7) k/uL Sodium (137-145) mmol/L Chloride (98-107) mmol/L Carbon Dioxide (22-30) mmol/L BUN (7-17) mg/dL Creatinine (0.52-1.04) mg/dL Glucose (74-99) mg/dL POC Glucose (mg/dL) 127 H 150 H (75-99) mg/dL Calcium (8.4-10.2) mg/dL Magnesium (1.6-2.3) mg/dL CK-MB (CK-2) (0.0-2.4) ng/mL Troponin I (0.000-0.034) ng/mL Thrombosis Risk Factor Assmnt - Choose All That Apply Any of the Below Risk Factors Present?: Yes Each Factor Represents 1 point: Acute [place] Other Risk Factors: Yes Each Risk Factor Represents 2 Points: Age 61-74 years Each Risk Factor Represents 3 Points: Age 75 years or older Other congenital or acquired thrombophilia - If yes, enter type in comment: No Thrombosis Risk Factor Assessment Total Risk Factor Score: 6 Thrombosis Risk Factor Assessment Level: High Risk Assessment and Plan Plan: 1. Acute inferior wall STEMI involving RCA requiring drug-eluting stent to 99% of stenosis down to 0% successful stenting, performed 05/06/2018 Dr. Marie patient currently is on Lipitor 80 mg daily,, Tenormin 25 mg daily, Plavix 75 mg daily aspirin 325 mg daily 2. Diabetes mellitus type 2 requiring NovoLog, Lantus 55 units daily, no blood correctional scale hemoglobin A1c is 7.0 3. Bladder cancer newly diagnosed presenting with cross hematuria, [facility] is anticipating bladder surgery around May 2018, Dr. Roberts, [phone] urologist . Monitor H&H as the patient is on double antiplatelet agents, the surgery needs to be delayed until both antiplatelet agents would be safely discontinued anticipate delay of surgery for at least 6 months however cardiology will decide sooner than that if required 4. Hypertensive Vascular disease on [id number] one daily no changes made 5. Dysthymia on Zoloft 50 mg daily 6. Neurocognitive deficits with memory loss, on Namenda 10 mg PAD, patient is not on any anticholinesterase medication. 7. Insomnia, hospital medication utilized for sleep was Ambien when necessary, we will schedule melatonin 6 mg at bedtime, Beer's criteria for medication safety using hypnotic sedative agents will be used very cautiously and will be avoided as much as possible in terms of Ambien use 8. GI prophylaxis with Pepcid 9 DVT prophylaxis, high risk known bladder cancer, with SCDs and patient currently ON IV heparin 10 Chronic blood loss anemia hemoglobin is 9.0, iron studies will be done 11 CK D stage III, unknown baseline, creatinine at 1.05, nephrotoxins will be avoided, 12 Hyponatremia acute, possibly nutritional evaluation, this will be checked, 13 Hypomagnesemia, replacement with monitoring 14 Mild metabolic acidosis, and is not on metformin prior to admission, continue fluids for hydration 15 Restless leg, on Mirapex 0.125 mg daily when necessary, iron studies to be obtained mite replacement
[2018-05-06 17:17] LABS: Glucose,Whole Blood 139 mg/dL (75-99)
[2018-05-06 18:27] LABS: Hemoglobin A1C 6.3 % (4.0-6.0)
[2018-05-06] MEDS ORDERED: PRAMIPEXOLE 0.125 MG TAB PO PRN (19:19)
[2018-05-06] MEDS ORDERED: INSULIN DETEMIR 100 UNIT/ML 10 ML VIAL SQ SCH ×2 (19:30)
[2018-05-06] MEDS: MEMANTINE 10 MG TAB PO SCH (20:11)
[2018-05-06] MEDS: MELATONIN 3 MG TABLET PO SCH (20:11)
[2018-05-06] MEDS: SERTRALINE 50 MG TAB PO SCH (20:11)
[2018-05-06] MEDS: ATORVASTATIN 80 MG TAB PO SCH (20:11)
[2018-05-06] MEDS: FAMOTIDINE 20 MG TAB PO SCH (20:12)
[2018-05-06] MEDS: LOSARTAN-HCTZ 50-12.5 MG 1 EACH TAB PO SCH (20:12)
[2018-05-06 20:16] LABS: Glucose,Whole Blood 203 mg/dL (75-99)
[2018-05-06] MEDS ORDERED: PRAVASTATIN SODIUM 40 MG TAB PO SCH (21:00)
[2018-05-07] MEDS: HEPARIN SOD,PORK IN 0.45% NACL 25,000 UNIT in 0.45% NACL 1 500ML.BAG IV SCH (00:54)
[2018-05-07] MEDS: CLOPIDOGREL 75 MG TAB PO SCH ×2 (00:55→09:46)
[2018-05-07 05:33] LABS: HCT 27.7 % (34.0-46.0); HGB 9.3 gm/dL (11.4-16.0); MCH 31.5 pg (25.0-35.0); MCHC 33.5 g/dL (31.0-37.0); MCV 94.2 fL (80.0-100.0); Mean Platelet Volume 6.6; Platelet Count 242 k/uL (150-450); RBC 2.94 m/uL (3.80-5.40); RDW 12.6 % (11.5-15.5); WBC 6.8 k/uL (3.8-10.6)
[2018-05-07 05:43] LABS: Calcium 8.8 mg/dL (8.4-10.2); Phosphorus 3.5 mg/dL (2.5-4.5); Potassium 4.3 mmol/L (3.5-5.1)
[2018-05-07] MEDS: INSULIN ASPART 100 UNIT/ML 1 ML 10 ML VIAL SQ SCH ×4 (06:28→20:23)
[2018-05-07 06:29] LABS: Glucose,Whole Blood 74 mg/dL (75-99)
--- NOTE | 2018-05-07 08:37 | XR ---
EXAMINATION TYPE: XR chest 1V portable DATE OF EXAM: 05/07/2018 COMPARISON: 05/06/2018 INDICATION: No cardiac catheter TECHNIQUE: Single frontal view of the chest is obtained. FINDINGS: The heart size is mildly prominent. The pulmonary vasculature is slightly prominent. The lungs are clear. IMPRESSION: 1. Mild cardiomegaly and mild pulmonary vascular prominence. Correlate for volume overload.
[2018-05-07 09:35] LABS: Glucose,Whole Blood 72 mg/dL (75-99)
[2018-05-07] MEDS: ATENOLOL 25 MG TAB PO SCH (09:46)
[2018-05-07] MEDS: LOSARTAN-HCTZ 50-12.5 MG 1 EACH TAB PO SCH (09:46)
[2018-05-07] MEDS: FAMOTIDINE 20 MG TAB PO SCH (09:46)
[2018-05-07] MEDS: ASPIRIN 325 MG TAB PO SCH (09:46)
[2018-05-07] MEDS: SERTRALINE 50 MG TAB PO SCH (09:47)
[2018-05-07] MEDS: MEMANTINE 10 MG TAB PO SCH ×2 (09:47→20:23)
--- NOTE | 2018-05-07 11:38 | PN ---
PROGRESS NOTE This patient is status post inferior wall myocardial infarction. Patient's medical records reviewed. Patient remains comfortable, hemodynamically no arrhythmias are noted. She is sitting in a chair. Blood pressure is 136/72 mmHg. First and second heart sounds are normal. Lungs are clinically clear to auscultation and percussion. We will continue the current medications. Echocardiogram reveals normal left ventricular systolic function. MMODL / IJN: [id number] /
[2018-05-07 11:57] LABS: Glucose,Whole Blood 214 mg/dL (75-99)
[2018-05-07 12:56] LABS: Iron Saturation 8.98 (12.00-45.00)
[2018-05-07] MEDS ORDERED: SODIUM FERRIC GLUCONAT-SUCROSE 125 MG in SODIUM CHLORIDE 0.9% 100 ML IVPB ONE (13:28)
--- NOTE | 2018-05-07 14:37 | P.PN ---
Subjective Progress Note Date: 05/07/18 This is a 78-year-old pleasant female patient of Dr. Joshua Cerna underlying history of dementia, diabetes mellitus type 2, hypertension, hyperlipidemia, who is currently a very poor historian. Patient provided some limited history that says chest discomfort and left shoulder discomfort, requiring ER evaluation. Patient was resting at that time, she denies any shortness of breath or diaphoresis no nausea or vomiting, no lightheadedness or dizziness, no syncope. EMS was called in, EKG was performed that shows acute ST segment elevation in the inferior leads, and was sent in directly to the cardiac bundle tier and labeler and went for an emergent cardiac cath requiring drug-eluting stent involving the RCA from a 99% stenosis to 0% stenosis post-stenting. Patient was chest pain-free after the procedure, currently now requiring double antiplatelet platelet agents. Patient was last seen by Dr. Lewis 04/08/2018 for diabetic foot [id number] encounter for diabetic shoes Particular history is positive for hematuria on seen by Dr. Martinez and was referred to [facility] Dr. Roberts [phone] for which bladder surgery would be performed in May 2018, for the suspicious mass highly suggestive of malignancy Echocardiogram performed 05/06/2018 normal sinus rhythm, EF 50-55%, basal inferolateral hypokinesia, thickened aortic valve, mild aortic regurgitation, mild TR, mild MR, right ventricular systolic pressure of 16, aortic root size is normal, normal pericardium Cardiac cath report 05/06/2018, Dr. Katz, showed right coronary artery need stenosis from a 99% to 0% using Xience drug-eluting stent 3.0 x 18 mm, through the right radial artery approach. Findings shows RCA distally with mild disease , PDA and PLV branches have mild disease, left main normal, left circumflex complex normal, however there is 30% to 40% occlusive disease after the first OM branch, proximal LAD mild disease, Patient was comfortable when seen in the presence of the son who is POA, full discussion was made regarding the intervention for the STEMI as well as the need to delay the bladder surgery as it would require treatment of the cardiac occlusive disease first and was recommended to have cardiac clearance to be off the double antiplatelet agents prior to the anticipated bladder surgery 05/07: Patient will be transferred out of the intensive care unit today to selective care. She denies having any chest pain or shortness of breath. She does continue to have small amount of bright red blood in her urine but no clots , positive sediment. She has been encouraged to drink a glass of water by her physician in [facility]. Ferrlecit will be ordered. Anticipate possible discharge in next 24-48 hours. Review Of Systems: Constitutional: No fever, no chills, no night sweats. No weight change. No weakness, fatigue or lethargy. No daytime sleepiness. EENT: No headache. No blurred vision or double vision, no loss of vision. No loss of Hearing, no ringing in the ears, no dizziness. No nasal drainage or congestion. No epistaxis. No sore throat. Lungs: No shortness of breath, cough, no sputum production. No wheezing. Cardiovascular: No chest pain, no lower extremity edema. No palpitations. No paroxysmal nocturnal dyspnea. No orthopnea. No lightheadedness or dizziness. No syncopal episodes. Abdominal: No abdominal pain. No nausea, vomiting. No diarrhea. No constipation. No bloody or tarry stools.. No loss of appetite. Genitourinary: No dysuria, increased frequency, urgency. No urinary retention. + Hematuria. Musculoskeletal: No myalgias. No muscle weakness, no gait dysfunction, no frequent falls. No back pain. No neck pain. Integumentary: No wounds, no lesions. No rash or pruritus. No unusual bruising. No change in hair or nails. Neurologic: No aphasia. No facial droop. No change in mentation. No head injury. No headache. No paralysis. No paresthesia. Psychiatric: No depression. No anxiety. No mood swings. Endocrine: No abnormal blood sugars. No weight change. No excessive sweating or thirst. No cold intolerance. Objective - Vital Signs Vital signs: Vital Signs Temp 98.1 F 05/07/18 08:00 Pulse 63 05/07/18 11:00 Resp 14 05/07/18 11:00 BP 136/72 05/07/18 11:00 Pulse Ox 99 05/07/18 11:00 Intake & Output 05/06/18 05/07/18 05/07/18 18:59 06:59 18:59 Intake Total 500 300 300 Output Total 1102 800 Balance -602 -500 300 Weight 83 kg 77.1 kg 77.1 kg Intake: IV 500 Magnesium Sulfate-D5w Pmx 300 1 gm In Dextrose/Water 1 100ml.bag @ 100 mls/hr IVPB Q1H [facility] Rx#: [id number] Sodium Chloride 0.9% 1, 200 000 ml @ 100 mls/hr IV . Q10H [facility] Rx#:[id number] Oral 300 300 Output: Urine 1100 800 Stool 2 Other: Voiding Method Bedpan Bedpan # Voids 1 1 0 - Exam General appearance: cooperative, no acute distress - EENT Eyes: anicteric sclerae, EOMI, PERRLA, dentition normal, normal appearance ENT: hearing grossly normal, NA/AT, normal oropharynx - Neck Neck: normal ROM - Respiratory Respiratory: bilateral: CTA, negative: diminished, dullness, rales - Cardiovascular Rhythm: regular Heart sounds: normal: S1, S2 Abnormal Heart Sounds: systolic murmur - Gastrointestinal General gastrointestinal: normal bowel sounds, tenderness (None) - Integumentary Integumentary: normal, normal turgor - Neurologic Neurologic: CNII-XII intact - Musculoskeletal Musculoskeletal: gait normal, strength equal bilaterally - Psychiatric Psychiatric: A&O x's 3, appropriate affect, intact judgment & insight - Labs CBC & Chem 7: 05/07/18 04:48 05/07/18 04:48 Labs: Abnormal Lab Results - Last 24 Hours (Table) 05/06/18 05/06/18 05/06/18 Range/Units 01:00 11:34 16:57 RBC (3.80-5.40) m/uL Hgb (11.4-16.0) gm/dL Hct (34.0-46.0) % Sodium (137-145) mmol/L Chloride (98-107) mmol/L BUN (7-17) mg/dL Creatinine (0.52-1.04) mg/dL Glucose (74-99) mg/dL POC Glucose (mg/dL) 150 H 139 H (75-99) mg/dL Hemoglobin A1c 6.3 H (4.0-6.0) % 05/06/18 05/07/18 05/07/18 Range/Units 20:14 04:48 04:48 RBC 2.94 L (3.80-5.40) m/uL Hgb 9.3 L (11.4-16.0) gm/dL Hct 27.7 L (34.0-46.0) % Sodium 130 L (137-145) mmol/L Chloride 96 L (98-107) mmol/L BUN 26 H (7-17) mg/dL Creatinine 1.35 H (0.52-1.04) mg/dL Glucose 54 L (74-99) mg/dL POC Glucose (mg/dL) 203 H (75-99) mg/dL Hemoglobin A1c (4.0-6.0) % 05/07/18 05/07/18 Range/Units 06:27 09:32 RBC (3.80-5.40) m/uL Hgb (11.4-16.0) gm/dL Hct (34.0-46.0) % Sodium (137-145) mmol/L Chloride (98-107) mmol/L BUN (7-17) mg/dL Creatinine (0.52-1.04) mg/dL Glucose (74-99) mg/dL POC Glucose (mg/dL) 74 L 72 L (75-99) mg/dL Hemoglobin A1c (4.0-6.0) % Assessment and Plan Plan: 1. Acute inferior wall STEMI involving RCA requiring drug-eluting stent to 99% of stenosis down to 0% successful stenting, performed 05/06/2018 Dr. Marie patient currently is on Lipitor 80 mg daily,, Tenormin 25 mg daily, Plavix 75 mg daily aspirin 325 mg daily 2. Diabetes mellitus type 2 requiring NovoLog, Lantus 55 units daily, NovoLog scale, hemoglobin A1c is 7.0 3. Bladder cancer newly diagnosed presenting with cross hematuria, [facility] is anticipating bladder surgery around May 2018, Dr. Roberts, [phone] urologist . Monitor H&H as the patient is on double antiplatelet agents, the surgery needs to be delayed until both antiplatelet agents would be safely discontinued anticipate delay of surgery for at least 6 months however cardiology will decide sooner than that if required 4. Hypertensive Vascular disease on [id number] one daily no changes made 5. Dysthymia on Zoloft 50 mg daily 6. Neurocognitive deficits with memory loss, on Namenda 10 mg PAD, patient is not on any anticholinesterase medication. 7. Insomnia, hospital medication utilized for sleep was Ambien when necessary, we will schedule melatonin 6 mg at bedtime, Beer's criteria for medication safety using hypnotic sedative agents will be used very cautiously and will be avoided as much as possible in terms of Ambien use 8. GI prophylaxis with Pepcid 9 DVT prophylaxis, high risk known bladder cancer, with SCDs and patient currently ON IV heparin 10 Chronic blood loss anemia hemoglobin is 9.0, iron studies will be done 11 CK D stage III, unknown baseline, creatinine at 1.05, nephrotoxins will be avoided, 12 Hyponatremia acute, possibly nutritional evaluation, this will be checked, 13 Hypomagnesemia, replacement with monitoring 14 Mild metabolic acidosis, and is not on metformin prior to admission, continue fluids for hydration 15 Restless leg, on Mirapex 0.125 mg daily when necessary, iron studies to be obtained mite replacement Discharge plan: Most likely home with homecare next 24-48 hours. Impression and plan of care have been directed as dictated by the signing physician. Kylah Begum nurse practitioner acting as scribe for signing physician.
[2018-05-07 16:40] LABS: Glucose,Whole Blood 86 mg/dL (75-99)
[2018-05-07] MEDS: INSULIN DETEMIR 100 UNIT/ML 10 ML VIAL SQ SCH (20:18)
[2018-05-07 20:19] LABS: Glucose,Whole Blood 170 mg/dL (75-99)
[2018-05-07] MEDS: MELATONIN 3 MG TABLET PO SCH (20:22)
[2018-05-07] MEDS: ATORVASTATIN 80 MG TAB PO SCH (20:22)
[2018-05-07] MEDS ORDERED: INSULIN DETEMIR 100 UNIT/ML 10 ML VIAL SQ SCH (21:00)
[2018-05-08 00:31] LABS: Basophils % (A) 0 %; Eosinophils # (A) 0.3 k/uL (0-0.7); Eosinophils % (A) 2 %; HCT 26.8 % (34.0-46.0); HGB 9.1 gm/dL (11.4-16.0); Lymphocytes # (A) 1.8 k/uL (1.0-4.8); Lymphocytes % (A) 15 %; MCH 31.7 pg (25.0-35.0); MCHC 33.8 g/dL (31.0-37.0); MCV 93.6 fL (80.0-100.0); Mean Platelet Volume 6.6; Monocytes # (A) 0.8 k/uL (0-1.0); Monocytes % (A) 7 %; Neutrophils # (A) 8.8 k/uL (1.3-7.7); Neutrophils % (A) 73 %; Platelet Count 317 k/uL (150-450); RBC 2.86 m/uL (3.80-5.40); RDW 12.5 % (11.5-15.5); WBC 12.1 k/uL (3.8-10.6)
[2018-05-08] MEDS: HYDROcodone/APAP 5-325MG 1 EACH TAB PO PRN (02:42)
[2018-05-08 06:15] LABS: Glucose,Whole Blood 170 mg/dL (75-99)
[2018-05-08] MEDS: INSULIN ASPART 100 UNIT/ML 1 ML 10 ML VIAL SQ SCH ×4 (06:28→20:52)
[2018-05-08 07:24] LABS: Basophils % (A) 0 %; Eosinophils # (A) 0.2 k/uL (0-0.7); Eosinophils % (A) 2 %; HCT 25.9 % (34.0-46.0); HGB 8.8 gm/dL (11.4-16.0); Lymphocytes # (A) 1.8 k/uL (1.0-4.8); Lymphocytes % (A) 16 %; Monocytes # (A) 0.6 k/uL (0-1.0); Monocytes % (A) 6 %; Neutrophils % (A) 74 %; Platelet Count 310 k/uL (150-450); RBC 2.76 m/uL (3.80-5.40); RDW 12.6 % (11.5-15.5); WBC 10.9 k/uL (3.8-10.6)
[2018-05-08 07:28] LABS: Calcium 8.9 mg/dL (8.4-10.2); Magnesium 1.4 mg/dL (1.6-2.3); Potassium 4.7 mmol/L (3.5-5.1)
[2018-05-08] MEDS: SERTRALINE 50 MG TAB PO SCH (08:52)
[2018-05-08] MEDS: MEMANTINE 10 MG TAB PO SCH ×2 (08:52→20:48)
[2018-05-08] MEDS: CLOPIDOGREL 75 MG TAB PO SCH (08:52)
[2018-05-08] MEDS: FAMOTIDINE 20 MG TAB PO SCH (08:52)
[2018-05-08] MEDS: LOSARTAN-HCTZ 50-12.5 MG 1 EACH TAB PO SCH (08:52)
[2018-05-08] MEDS: ATENOLOL 25 MG TAB PO SCH (08:52)
[2018-05-08] MEDS ORDERED: ASPIRIN 325 MG TAB PO SCH (09:00)
[2018-05-08 09:19] LABS: Basophils % (A) 0 %; Eosinophils # (A) 0.1 k/uL (0-0.7); Eosinophils % (A) 1 %; HCT 23.5 % (34.0-46.0); HGB 8.1 gm/dL (11.4-16.0); Lymphocytes % (A) 10 %; MCH 32.4 pg (25.0-35.0); MCHC 34.6 g/dL (31.0-37.0); MCV 93.6 fL (80.0-100.0); Mean Platelet Volume 6.6; Monocytes # (A) 0.6 k/uL (0-1.0); Monocytes % (A) 5 %; Neutrophils % (A) 83 %; Platelet Count 252 k/uL (150-450); RBC 2.52 m/uL (3.80-5.40); RDW 12.6 % (11.5-15.5); WBC 10.8 k/uL (3.8-10.6)
--- NOTE | 2018-05-08 12:05 | P.GSCN ---
History of Present Illness Consult date: 05/08/18 Reason for Consult: Hematuria Requesting physician: Fina Briseno History of present illness: The patient is a 78-year-old white female diagnosed with T1 grade 3 urothelial carcinoma earlier this year. She underwent resection, followed by instillation of induction intravesical BCG. However, she was recently found to have muscle invasive urothelial carcinoma. She was referred to [facility] for a second opinion. Dr. Martinez had discussions with the patient and her son, and it appeared that the intent was to proceed with conservative management (radiation therapy +/- chemotherapy). However, a computed tomography scan at [facility] suggested more disease and the patient elected to undergo a radical cystectomy. She sustained a myocardial infarction on May 06 and underwent right coronary artery angioplasty with stent placement. She is now experiencing gross hematuria with clots. I'm consulted for this reason. Review of Systems - Constitutional Denies fever - Cardiovascular Reports chest pain - Respiratory Denies dyspnea - Genitourinary Genitourinary: Reports hematuria Past Medical History Past Medical History: Coronary Artery Disease (CAD), Cancer, Chest Pain / Angina , Dementia, Diabetes Mellitus, Hyperlipidemia, Hypertension, Memory Impairment, Myocardial Infarction (SD), Osteoarthritis (OA) Additional Past Medical History / Comment(s): Restless leg syndrome, Bladder Cancer with Gross hematuria Last Myocardial Infarction Date:: 05/06/18 History of Any Multi-Drug Resistant Organisms: None Reported Past Surgical History: Cholecystectomy, Heart Catheterization With Stent Additional Past Surgical History / Comment(s): Arthroscopic knee surgery left, Left ankle surgery 09/17/2014, Past Anesthesia/Blood Transfusion Reactions: No Reported Reaction Date of Last Stent Placement:: 05/06/18 Smoking Status: Former smoker - Past Family History Father Family Medical History: Dementia Mother Family Medical History: Cancer (Pancreas) Sister(s) Family Medical History: Cancer (Lung cancer) Brother(s) Family Medical History: No Reported History Son(s) Family Medical History: No Reported History (Healthy) Medications and Allergies Home Medications Medication Instructions Recorded Confirmed Type Atenolol [Tenormin] 25 mg PO DAILY 09/17/14 05/06/18 History Insulin Glargine,Hum.rec.anlog 55 unit SQ DAILY 09/17/14 05/06/18 History [Lantus Solostar] Losartan/Hydrochlorothiazide 1 tab PO DAILY 09/17/14 05/06/18 History [Hyzaar 100-25 Tablet] Pravastatin Sodium [Pravachol] 40 mg PO HS 09/17/14 05/06/18 History Famotidine [Pepcid] 20 mg PO BID 05/06/18 05/06/18 History Ginkgo Biloba [place] Extract [Ginkgo] 60 mg PO BID 05/06/18 05/06/18 History Memantine [Namenda] 10 mg PO BID 05/06/18 05/06/18 History Pramipexole [Mirapex] 0.125 mg PO DAILY PRN 05/06/18 05/06/18 History Sertraline [Zoloft] 50 mg PO DAILY 05/06/18 05/06/18 History Turmeric Root Extract [Turmeric] 500 mg PO DAILY 05/06/18 05/06/18 History Ubidecarenone [Co Q-10] 200 mg PO DAILY 05/06/18 05/06/18 History Allergies Allergy/AdvReac Type Severity Reaction Status Date / Time Penicillins AdvReac Mild Unknown Verified 05/06/18 16:12 Surgical - Exam Vital Signs Temp Pulse Resp BP Pulse Ox 97.7 F 64 18 134/66 98 05/06/18 00:48 05/06/18 00:48 05/06/18 00:48 05/06/18 00:48 05/06/18 00:48 - General well developed, well nourished, no distress - Respiratory normal respiratory effort - Abdomen Abdomen: soft, tender (Mild suprapubic tenderness to palpation), no guarding, no rigid, no rebound, no distended - Genitourinary normal external genitalia - Psychiatric oriented to time, oriented to person, oriented to place, speech is normal, memory intact Results - Labs 05/08/18 08:51 05/08/18 05:59 Abnormal Lab Results - Last 24 Hours (Table) 05/07/18 05/07/18 05/07/18 Range/Units 04:48 09:32 11:55 WBC (3.8-10.6) k/uL RBC (3.80-5.40) m/uL Hgb (11.4-16.0) gm/dL Hct (34.0-46.0) % Neutrophils # (1.3-7.7) k/uL POC Glucose (mg/dL) 72 L 214 H (75-99) mg/dL Iron 29 L (50-170) ug/dL Iron Saturation 8.98 L (12.00-45.00) 05/07/18 05/08/18 05/08/18 Range/Units 20:17 00:19 06:09 WBC 12.1 H (3.8-10.6) k/uL RBC 2.86 L (3.80-5.40) m/uL Hgb 9.1 L (11.4-16.0) gm/dL Hct 26.8 L (34.0-46.0) % Neutrophils # 8.8 H (1.3-7.7) k/uL POC Glucose (mg/dL) 170 H 170 H (75-99) mg/dL Iron (50-170) ug/dL Iron Saturation (12.00-45.00) Assessment and Plan (1) Gross hematuria Current Visit: Yes Status: Acute Code(s): R31.0 - GROSS HEMATURIA SNOMED Code(s): 154677697 (2) Malignant neoplasm of bladder Current Visit: Yes Status: Acute Code(s): C67.9 - MALIGNANT NEOPLASM OF BLADDER, UNSPECIFIED SNOMED Code(s): 565519717 Plan: The patient experienced gross hematuria with clots overnight. Her postvoid residual was over 300 mL. Therefore, a 22-K[place], three-way Pleitez catheter was placed. I manually irrigated the bladder, removing one small clot. Continuous bladder irrigation is now running, and the urine is pink tinged. Unfortunately , she requires antiplatelet therapy which will potentiate her hematuria. Continuous bladder irrigation will be continued, with manual irrigation of the catheter as needed. She may require transfusion. If the hematuria persists, she may require cystoscopy under anesthesia with fulguration of bleeding sites and possible bladder tumor resection. However, if tumor is the source of the hematuria, this may be difficult to successfully fulgurate. Time with Patient: Greater than 30
--- NOTE | 2018-05-08 12:18 | P.PN ---
Subjective Progress Note Date: 05/08/18 This is a 78-year-old pleasant female patient of Dr. Joshua Cerna underlying history of dementia, diabetes mellitus type 2, hypertension, hyperlipidemia, who is currently a very poor historian. Patient provided some limited history that says chest discomfort and left shoulder discomfort, requiring ER evaluation. Patient was resting at that time, she denies any shortness of breath or diaphoresis no nausea or vomiting, no lightheadedness or dizziness, no syncope. EMS was called in, EKG was performed that shows acute ST segment elevation in the inferior leads, and was sent in directly to the cardiac laboratory operations coordinator and went for an emergent cardiac cath requiring drug-eluting stent involving the RCA from a 99% stenosis to 0% stenosis post-stenting. Patient was chest pain-free after the procedure, currently now requiring double antiplatelet platelet agents. Patient was last seen by Dr. Lewis 04/08/2018 for diabetic foot [id number] encounter for diabetic shoes Particular history is positive for hematuria on seen by Dr. Martinez and was referred to [facility] Dr. Roberts [phone] for which bladder surgery would be performed in May 2018, for the suspicious mass highly suggestive of malignancy Echocardiogram performed 05/06/2018 normal sinus rhythm, EF 50-55%, basal inferolateral hypokinesia, thickened aortic valve, mild aortic regurgitation, mild TR, mild MR, right ventricular systolic pressure of 16, aortic root size is normal, normal pericardium Cardiac cath report 05/06/2018, Dr. Katz, showed right coronary artery need stenosis from a 99% to 0% using Xience drug-eluting stent 3.0 x 18 mm, through the right radial artery approach. Findings shows RCA distally with mild disease , PDA and PLV branches have mild disease, left main normal, left circumflex complex normal, however there is 30% to 40% occlusive disease after the first OM branch, proximal LAD mild disease, Patient was comfortable when seen in the presence of the son who is POA, full discussion was made regarding the intervention for the STEMI as well as the need to delay the bladder surgery as it would require treatment of the cardiac occlusive disease first and was recommended to have cardiac clearance to be off the double antiplatelet agents prior to the anticipated bladder surgery 05/07: Patient will be transferred out of the intensive care unit today to selective care. She denies having any chest pain or shortness of breath. She does continue to have small amount of bright red blood in her urine but no clots , positive sediment. She has been encouraged to drink a glass of water by her physician in [facility]. Ferrlecit will be ordered. Anticipate possible discharge in next 24-48 hours. 05/08: Patient is resting comfortably up in a chair. She is denying having any chest pain or shortness of breath. Patient continues to have bright red blood in her urine. She had a large amount in the evening with 6-7 large clots and a another episode in the morning without any clots. Recently hemoglobin this morning was 8. Patient was seen by urology a three-way Pleitez catheter was placed in manually irrigated with removal of 1 clots. Continues bladder irrigation will continue with manual irrigation of the catheter as needed. Review of systems: Constitutional: No fever, no chills, no night sweats. No weight change. No weakness, fatigue or lethargy. No daytime sleepiness. EENT: No headache. No blurred vision or double vision, no loss of vision. No loss of Hearing, no ringing in the ears, no dizziness. No nasal drainage or congestion. No epistaxis. No sore throat. Lungs: No shortness of breath, cough, no sputum production. No wheezing. Cardiovascular: No chest pain, no lower extremity edema. No palpitations. No paroxysmal nocturnal dyspnea. No orthopnea. No lightheadedness or dizziness. No syncopal episodes. Abdominal: No abdominal pain. No nausea, vomiting. No diarrhea. No constipation. No bloody or tarry stools.. No loss of appetite. Genitourinary: No dysuria, increased frequency, urgency. No urinary retention. + Hematuria. Musculoskeletal: No myalgias. No muscle weakness, no gait dysfunction, no frequent falls. No back pain. No neck pain. Integumentary: No wounds, no lesions. No rash or pruritus. No unusual bruising. No change in hair or nails. Neurologic: No aphasia. No facial droop. No change in mentation. No head injury. No headache. No paralysis. No paresthesia. Psychiatric: No depression. No anxiety. No mood swings. Endocrine: No abnormal blood sugars. No weight change. No excessive sweating or thirst. No cold intolerance. Objective - Vital Signs Vital signs: Vital Signs Temp 97.6 F 05/08/18 08:00 Pulse 70 05/08/18 08:00 Resp 18 05/08/18 08:00 BP 124/55 05/08/18 08:00 Pulse Ox 97 05/08/18 08:00 Intake & Output 05/07/18 05/08/18 05/08/18 18:59 06:59 18:59 Intake Total 640 10 0 Output Total 501 400 450 Balance 139 -390 -450 Weight 77.1 kg 82 kg Intake: IV 10 0.9 10 Oral 640 0 Output: Urine 500 400 450 3-way Urethral 450 Stool 1 Other: Voiding Method Toilet Toilet Toilet # Voids 1 1 # Bowel Movements 1 2 - Constitutional General appearance: Present: cooperative, no acute distress - EENT Eyes: Present: anicteric sclerae, EOMI, PERRLA ENT: Present: hearing grossly normal, NA/AT, normal oropharynx - Neck Neck: Present: normal ROM. Absent: lymphadenopathy - Respiratory Respiratory: bilateral: CTA, negative: diminished, dullness, rales, rhonchi, wheezing - Cardiovascular Rhythm: regular Heart sounds: normal: S1, S2 Abnormal Heart Sounds: Absent: systolic murmur, diastolic murmur, rub, S3 Gallop , S4 Gallop, click, other - Gastrointestinal General gastrointestinal: Present: normal bowel sounds, soft. Absent: organomegaly, splenomegaly, tenderness - Integumentary Integumentary: Present: normal turgor, pale. Absent: rash - Neurologic Neurologic: Present: CNII-XII intact - Musculoskeletal Musculoskeletal: Present: gait normal, strength equal bilaterally - Psychiatric Psychiatric: Present: A&O x's 3, appropriate affect, intact judgment & insight - Labs CBC & Chem 7: 05/08/18 08:51 05/08/18 05:59 Labs: Abnormal Lab Results - Last 24 Hours (Table) 05/07/18 05/07/18 05/08/18 Range/Units 04:48 20:17 00:19 WBC 12.1 H (3.8-10.6) k/uL RBC 2.86 L (3.80-5.40) m/uL Hgb 9.1 L (11.4-16.0) gm/dL Hct 26.8 L (34.0-46.0) % Neutrophils # 8.8 H (1.3-7.7) k/uL Sodium (137-145) mmol/L Chloride (98-107) mmol/L Carbon Dioxide (22-30) mmol/L BUN (7-17) mg/dL Creatinine (0.52-1.04) mg/dL Glucose (74-99) mg/dL POC Glucose (mg/dL) 170 H (75-99) mg/dL Magnesium (1.6-2.3) mg/dL Iron 29 L (50-170) ug/dL Iron Saturation 8.98 L (12.00-45.00) 05/08/18 05/08/18 05/08/18 Range/Units 05:59 05:59 06:09 WBC 10.9 H (3.8-10.6) k/uL RBC 2.76 L (3.80-5.40) m/uL Hgb 8.8 L (11.4-16.0) gm/dL Hct 25.9 L (34.0-46.0) % Neutrophils # 8.0 H (1.3-7.7) k/uL Sodium 123 L (137-145) mmol/L Chloride 89 L (98-107) mmol/L Carbon Dioxide 21 L (22-30) mmol/L BUN 28 H (7-17) mg/dL Creatinine 1.35 H (0.52-1.04) mg/dL Glucose 160 H (74-99) mg/dL POC Glucose (mg/dL) 170 H (75-99) mg/dL Magnesium 1.4 L (1.6-2.3) mg/dL Iron (50-170) ug/dL Iron Saturation (12.00-45.00) 05/08/18 Range/Units 08:51 WBC 10.8 H (3.8-10.6) k/uL RBC 2.52 L (3.80-5.40) m/uL Hgb 8.1 L (11.4-16.0) gm/dL Hct 23.5 L (34.0-46.0) % Neutrophils # 9.0 H (1.3-7.7) k/uL Sodium (137-145) mmol/L Chloride (98-107) mmol/L Carbon Dioxide (22-30) mmol/L BUN (7-17) mg/dL Creatinine (0.52-1.04) mg/dL Glucose (74-99) mg/dL POC Glucose (mg/dL) (75-99) mg/dL Magnesium (1.6-2.3) mg/dL Iron (50-170) ug/dL Iron Saturation (12.00-45.00) Assessment and Plan Plan: 1. Acute inferior wall STEMI involving RCA requiring drug-eluting stent to 99% of stenosis down to 0% successful stenting, performed 05/06/2018 Dr. Marie patient currently is on Lipitor 80 mg daily,, Tenormin 25 mg daily, Plavix 75 mg daily aspirin 81 mg daily 2. Diabetes mellitus type 2 requiring NovoLog, Lantus 55 units daily, NovoLog scale, hemoglobin A1c is 7.0 3. Bladder cancer newly diagnosed presenting with cross hematuria, [facility] is anticipating bladder surgery around May 2018, Dr. Roberts, urologist . Monitor H&H as the patient is on double antiplatelet agents, the surgery needs to be delayed until both antiplatelet agents would be safely discontinued anticipate delay of surgery for at least 6 months however cardiology will decide sooner than that if required. Dr. Blount consult appreciated. Three-way Pleitez catheter placed with continuous irrigation and manual irrigation as needed. 4. Hypertensive Vascular disease on [id number] one daily no changes made 5. Dysthymia on Zoloft 50 mg daily 6. Neurocognitive deficits with memory loss, on Namenda 10 mg PAD, patient is not on any anticholinesterase medication. 7. Insomnia, hospital medication utilized for sleep was Ambien when necessary, we will schedule melatonin 6 mg at bedtime, Beer's criteria for medication safety using hypnotic sedative agents will be used very cautiously and will be avoided as much as possible in terms of Ambien use 8. GI prophylaxis with Pepcid 9 DVT prophylaxis, high risk known bladder cancer, with SCDs and patient currently ON IV heparin 10 Chronic blood loss anemia hemoglobin is 9.0, iron studies will be done 11 CK D stage III, unknown baseline, creatinine at 1.05, nephrotoxins will be avoided, 12 Hyponatremia acute, possibly nutritional evaluation, this will be checked, 13 Hypomagnesemia, replacement with monitoring 14 Mild metabolic acidosis, and is not on metformin prior to admission, continue fluids for hydration 15 Restless leg, on Mirapex 0.125 mg daily when necessary, iron studies to be obtained mite replacement Discharge plan: Most likely home with homecare next 24-48 hours. Impression and plan of care have been directed as dictated by the signing physician. Edelmira Zee nurse practitioner acting as scribe for signing physician.
--- NOTE | 2018-05-08 13:21 | PN ---
PROGRESS NOTE HISTORY: Ms. Dowling is a 78-year-old female who presented with an acute inferior myocardial infarction. Underwent stenting of her RCA. She is doing well this morning. She is denying any symptoms of chest pain. Her breathing is stable. She has hematuria related to her bladder cancer and was seen by Dr. Blount. Hemodynamically, she has been stable. She continues to be, at this time, on aspirin 81 mg daily, atenolol 25 mg daily, Lipitor 80 mg daily, Plavix 75 mg daily, losartan/HCTZ 100/25 mg daily, Namenda. PHYSICAL EXAMINATION: Blood pressure 124/50 with a heart rate 70. LUNGS: Clear. HEART: Regular rate and rhythm. S1, S2. No S3. No rub appreciated. ABDOMEN: Soft nontender. EXTREMITIES: No edema. IMPRESSION: 1. Status post myocardial infarction with stenting of the right coronary artery. 2. Hematuria with bladder cancer. RECOMMENDATIONS: From the cardiac standpoint she is stable on her present medical regimen. She will follow up as an outpatient with Dr. Marie. In the meantime, will continue on the present regimen. MMODL / IJN: [id number] /
[2018-05-08 13:56] LABS: Glucose,Whole Blood 129 mg/dL (75-99)
[2018-05-08 17:10] LABS: Glucose,Whole Blood 122 mg/dL (75-99)
[2018-05-08] MEDS: ATORVASTATIN 80 MG TAB PO SCH (20:48)
[2018-05-08] MEDS: INSULIN DETEMIR 100 UNIT/ML 10 ML VIAL SQ SCH (20:48)
[2018-05-08] MEDS: MELATONIN 3 MG TABLET PO SCH (20:48)
[2018-05-08 21:06] LABS: Glucose,Whole Blood 223 mg/dL (75-99)
[2018-05-08 21:15] LABS: HCT 21.9 % (34.0-46.0); HGB 7.2 gm/dL (11.4-16.0); MCH 30.6 pg (25.0-35.0); MCHC 32.7 g/dL (31.0-37.0); MCV 93.5 fL (80.0-100.0); Mean Platelet Volume 6.8; Platelet Count 252 k/uL (150-450); RBC 2.34 m/uL (3.80-5.40); RDW 12.5 % (11.5-15.5); WBC 8.5 k/uL (3.8-10.6)
[2018-05-08] MEDS ORDERED: SODIUM CHLORIDE 0.9% 500 ML 500 ML IV ONE (23:23)
[2018-05-08] MEDS: PRAMIPEXOLE 0.25 MG TAB PO SCH (23:28)
[2018-05-08] MEDS: SODIUM CHLORIDE 0.9% 1,000 ML IV SCH (23:28)
[2018-05-09] MEDS: INSULIN ASPART 100 UNIT/ML 1 ML 10 ML VIAL SQ SCH ×4 (06:31→22:56)
[2018-05-09 06:33] LABS: Glucose,Whole Blood 78 mg/dL (75-99)
[2018-05-09 06:56] LABS: Calcium 8.1 mg/dL (8.4-10.2); Potassium 3.8 mmol/L (3.5-5.1); Total Bilirubin 0.5 mg/dL (0.2-1.3); Total Protein 5.4 g/dL (6.3-8.2)
[2018-05-09 07:08] LABS: Basophils % (A) 0 %; Eosinophils # (A) 0.2 k/uL (0-0.7); Eosinophils % (A) 2 %; Lymphocytes # (A) 1.4 k/uL (1.0-4.8); Lymphocytes % (A) 17 %; MCH 32.3 pg (25.0-35.0); MCHC 34.5 g/dL (31.0-37.0); MCV 93.6 fL (80.0-100.0); Mean Platelet Volume 6.7; Monocytes # (A) 0.5 k/uL (0-1.0); Monocytes % (A) 6 %; Neutrophils # (A) 6.4 k/uL (1.3-7.7); Neutrophils % (A) 74 %; Platelet Count 243 k/uL (150-450); RBC 2.07 m/uL (3.80-5.40); RDW 12.7 % (11.5-15.5); WBC 8.7 k/uL (3.8-10.6)
[2018-05-09 07:16] LABS: HCT 19.4 % (34.0-46.0)
[2018-05-09 07:17] LABS: HGB 6.7 gm/dL (11.4-16.0)
[2018-05-09] MEDS: SERTRALINE 50 MG TAB PO SCH (08:26)
[2018-05-09] MEDS: PRAMIPEXOLE 0.25 MG TAB PO SCH ×2 (08:26→22:55)
[2018-05-09] MEDS: CLOPIDOGREL 75 MG TAB PO SCH (08:26)
[2018-05-09] MEDS: FAMOTIDINE 20 MG TAB PO SCH (08:26)
[2018-05-09] MEDS: MEMANTINE 10 MG TAB PO SCH ×2 (08:26→22:56)
[2018-05-09] MEDS: ATENOLOL 25 MG TAB PO SCH (08:26)
[2018-05-09] MEDS: LOSARTAN-HCTZ 50-12.5 MG 1 EACH TAB PO SCH (08:27)
[2018-05-09] MEDS: ASPIRIN 81 MG PO SCH (08:27)
--- NOTE | 2018-05-09 11:12 | P.PN ---
Subjective Progress Note Date: 05/09/18 This a pleasant 78-year-old female who presented with acute inferior myocardial infarction. She underwent stenting of her RCA. Doing well from a cardiac standpoint. She does have significant hematuria related to bladder cancer. She 's being followed by Dr. Blount and is anticipating cystoscopy. Vital signs stable. Objective - Vital Signs Vital signs: Vital Signs Temp 98.1 F 05/09/18 08:00 Pulse 68 05/09/18 08:00 Resp 18 05/09/18 08:00 BP 106/51 05/09/18 08:00 Pulse Ox 96 05/09/18 08:00 Intake & Output 05/08/18 05/09/18 05/09/18 18:59 06:59 18:59 Intake Total 220 Output Total 1450 2103 Balance -1230 -2103 Intake: Oral 220 Output: Urine 1450 2100 3-way Urethral 450 1450 Stool 3 Other: Voiding Method Toilet Toilet Toilet # Voids 1 - Exam PHYSICAL EXAMINATION: HEENT: Head is atraumatic, normocephalic. Pupils equal, round. Neck is supple. There is no elevated jugular venous pressure. HEART EXAMINATION: Heart sounds regular, S1 and S2 normal. No murmur or gallop heard. CHEST EXAMINATION: Lungs are clear to auscultation and precussion. No chest wall tenderness is noted on palpation or with deep breathing. ABDOMEN: Soft, nontender. No organomegaly noted. EXTREMITIES: 2+ peripheral pulses with no evidence of peripheral edema and no calf tenderness noted. NEUROLOGIC patient is awake, alert and oriented x3. . - Labs CBC & Chem 7: 05/09/18 06:27 05/09/18 06:27 Labs: Abnormal Lab Results - Last 24 Hours (Table) 05/08/18 05/08/18 05/08/18 Range/Units 13:51 17:03 20:31 RBC 2.34 L (3.80-5.40) m/uL Hgb 7.2 L (11.4-16.0) gm/dL Hct 21.9 L (34.0-46.0) % Sodium (137-145) mmol/L Chloride (98-107) mmol/L BUN (7-17) mg/dL Creatinine (0.52-1.04) mg/dL Glucose (74-99) mg/dL POC Glucose (mg/dL) 129 H 122 H (75-99) mg/dL Calcium (8.4-10.2) mg/dL Total Protein (6.3-8.2) g/dL Albumin (3.5-5.0) g/dL 05/08/18 05/09/18 05/09/18 Range/Units 20:47 06:27 06:27 RBC 2.07 L (3.80-5.40) m/uL Hgb 6.7 L* (11.4-16.0) gm/dL Hct 19.4 L* (34.0-46.0) % Sodium 125 L (137-145) mmol/L Chloride 93 L (98-107) mmol/L BUN 25 H (7-17) mg/dL Creatinine 1.23 H (0.52-1.04) mg/dL Glucose 66 L (74-99) mg/dL POC Glucose (mg/dL) 223 H (75-99) mg/dL Calcium 8.1 L (8.4-10.2) mg/dL Total Protein 5.4 L (6.3-8.2) g/dL Albumin 3.0 L (3.5-5.0) g/dL Assessment and Plan Assessment: #1 status post acute inferior UT with stenting of the RCA #2 hematuria with known history of bladder cancer Plan: From cardiology standpoint, medications were reviewed and will continue the same. From my perspective, patient may proceed with cystoscopy. Do not hold aspirin or Plavix. We'll continue to follow the patient for further recommendations accordingly. [employer] note has been reviewed, I agree with a documented findings and plan of care. Patient was seen and examined.
[2018-05-09 11:17] LABS: Glucose,Whole Blood 80 mg/dL (75-99)
--- NOTE | 2018-05-09 13:08 | P.PN ---
Progress Note - Text Progress Note Date: 05/09/18 Mrs. Dowling continues to show evidence of gross hematuria despite continuous bladder irrigation. Her Pleitez catheter has decreased to 6.7 this morning, and the urine is giron red this morning in color. In view of this, I have suggested she undergo cystoscopy with fulguration of bleeder, possible bladder tumor resection. The rationale for this was reviewed in detail with the patient and her son. Also discussed were potential risks, which include anesthesia, persistent bleeding, infection, and bladder perforation. She has been cleared by Cardiology for this procedure.
[2018-05-09] MEDS ORDERED: IV FLUID CONTINUATION 900 ML IV ONE (13:59)
--- NOTE | 2018-05-09 14:31 | P.PN ---
Subjective Progress Note Date: 05/09/18 This is a 78-year-old pleasant female patient of Dr. Joshua Cerna underlying history of dementia, diabetes mellitus type 2, hypertension, hyperlipidemia, who is currently a very poor historian. Patient provided some limited history that says chest discomfort and left shoulder discomfort, requiring ER evaluation. Patient was resting at that time, she denies any shortness of breath or diaphoresis no nausea or vomiting, no lightheadedness or dizziness, no syncope. 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 Patient was chest pain-free after the procedure, currently now requiring double antiplatelet platelet agents. Patient was last seen by Dr. Lewis 04/08/2018 for diabetic foot [id number] encounter for diabetic shoes Particular history is positive for hematuria on seen by Dr. Martinez and was referred to [facility] Dr. Roberts [phone] for which bladder surgery would be performed in May 2018, for the suspicious mass highly suggestive of malignancy Echocardiogram performed 05/06/2018 normal sinus rhythm, EF 50-55%, basal inferolateral hypokinesia, thickened aortic valve, mild aortic regurgitation, mild TR, mild MR, right ventricular systolic pressure of 16, aortic root size is normal, normal pericardium Cardiac cath report 05/06/2018, Dr. Katz, showed right coronary artery need stenosis from a 99% to 0% using Xience drug-eluting stent 3.0 x 18 mm, through the right radial artery approach. Findings shows RCA distally with mild disease , PDA and PLV branches have mild disease, left main normal, left circumflex complex normal, however there is 30% to 40% occlusive disease after the first OM branch, proximal LAD mild disease, Patient was comfortable when seen in the presence of the son who is POA, full discussion was made regarding the intervention for the STEMI as well as the need to delay the bladder surgery as it would require treatment of the cardiac occlusive disease first and was recommended to have cardiac clearance to be off the double antiplatelet agents prior to the anticipated bladder surgery 05/07: Patient will be transferred out of the intensive care unit today to selective care. She denies having any chest pain or shortness of breath. She does continue to have small amount of bright red blood in her urine but no clots , positive sediment. She has been encouraged to drink a glass of water by her physician in [facility]. Ferrlecit will be ordered. Anticipate possible discharge in next 24-48 hours. 05/08: Patient is resting comfortably up in a chair. She is denying having any chest pain or shortness of breath. Patient continues to have bright red blood in her urine. She had a large amount in the evening with 6-7 large clots and a another episode in the morning without any clots. Recently hemoglobin this morning was 8. Patient was seen by urology a three-way Pleitez catheter was placed in manually irrigated with removal of 1 clots. Continues bladder irrigation will continue with manual irrigation of the catheter as needed. 05/09: This morning, patient has hemoglobin of 6.71 unit packed RBCs will be ordered. Dr. Blount has evaluated with plan for cystoscopy and fulguration today. She had Pleitez catheter placed yesterday for retention and has noted hematuria which has been present since admission. Patient denies any chest pain , no abdominal pain, no lightheadedness. BUN 25 and creatinine 1.23 and sodium 125. Blood sugars have been labile with range of 78-223. Vital signs are stable, afebrile. Review Of Systems: Constitutional: No fever, no chills, no night sweats. No weight change. + weakness, fatigue or lethargy. No daytime sleepiness. EENT: No headache. No blurred vision or double vision, no loss of vision. No loss of Hearing, no ringing in the ears, no dizziness. No nasal drainage or congestion. No epistaxis. No sore throat. Lungs: No shortness of breath, cough, no sputum production. No wheezing. Cardiovascular: No chest pain, no lower extremity edema. No palpitations. No paroxysmal nocturnal dyspnea. No orthopnea. No lightheadedness or dizziness. No syncopal episodes. Abdominal: No abdominal pain. No nausea, vomiting. No diarrhea. No constipation. No bloody or tarry stools.. No loss of appetite. Genitourinary: No dysuria, increased frequency, urgency. No urinary retention. + Hematuria. Musculoskeletal: No myalgias. + muscle weakness, no gait dysfunction, no frequent falls. No back pain. No neck pain. Integumentary: No wounds, no lesions. No rash or pruritus. No unusual bruising. No change in hair or nails. Neurologic: No aphasia. No facial droop. No change in mentation. No head injury. No headache. No paralysis. No paresthesia. Psychiatric: No depression. No anxiety. No mood swings. Endocrine: + abnormal blood sugars. No weight change. No excessive sweating or thirst. No cold intolerance. Objective - Vital Signs Vital signs: Vital Signs Temp 98.0 F 05/09/18 03:19 Pulse 67 05/09/18 03:21 Resp 18 05/09/18 03:21 BP 110/48 05/09/18 03:19 Pulse Ox 94 L 05/09/18 03:19 Intake & Output 05/08/18 05/09/18 05/09/18 18:59 06:59 18:59 Intake Total 220 Output Total 1450 2103 Balance -1230 -2103 Intake: Oral 220 Output: Urine 1450 2100 3-way Urethral 450 1450 Stool 3 Other: Voiding Method Toilet Toilet # Voids 1 - Exam General appearance: cooperative, no acute distress - EENT Eyes: anicteric sclerae, EOMI, PERRLA, dentition normal, normal appearance ENT: hearing grossly normal, NA/AT, normal oropharynx - Neck Neck: normal ROM - Respiratory Respiratory: bilateral: CTA, negative: diminished, dullness, rales - Cardiovascular Rhythm: regular Heart sounds: normal: S1, S2 Abnormal Heart Sounds: systolic murmur - Gastrointestinal General gastrointestinal: normal bowel sounds, tenderness (None), Pleitez catheter draining bloody urine. - Integumentary Integumentary: normal, normal turgor - Neurologic Neurologic: CNII-XII intact - Musculoskeletal Musculoskeletal: gait normal, strength equal bilaterally - Psychiatric Psychiatric: A&O x's 3, appropriate affect, intact judgment & insight - Labs CBC & Chem 7: 05/09/18 06:27 05/09/18 06:27 Labs: Abnormal Lab Results - Last 24 Hours (Table) 05/08/18 05/08/18 05/08/18 Range/Units 08:51 13:51 17:03 WBC 10.8 H (3.8-10.6) k/uL RBC 2.52 L (3.80-5.40) m/uL Hgb 8.1 L (11.4-16.0) gm/dL Hct 23.5 L (34.0-46.0) % Neutrophils # 9.0 H (1.3-7.7) k/uL Sodium (137-145) mmol/L Chloride (98-107) mmol/L BUN (7-17) mg/dL Creatinine (0.52-1.04) mg/dL Glucose (74-99) mg/dL POC Glucose (mg/dL) 129 H 122 H (75-99) mg/dL Calcium (8.4-10.2) mg/dL Total Protein (6.3-8.2) g/dL Albumin (3.5-5.0) g/dL 05/08/18 05/08/18 05/09/18 Range/Units 20:31 20:47 06:27 WBC (3.8-10.6) k/uL RBC 2.34 L 2.07 L (3.80-5.40) m/uL Hgb 7.2 L 6.7 L* (11.4-16.0) gm/dL Hct 21.9 L 19.4 L* (34.0-46.0) % Neutrophils # (1.3-7.7) k/uL Sodium (137-145) mmol/L Chloride (98-107) mmol/L BUN (7-17) mg/dL Creatinine (0.52-1.04) mg/dL Glucose (74-99) mg/dL POC Glucose (mg/dL) 223 H (75-99) mg/dL Calcium (8.4-10.2) mg/dL Total Protein (6.3-8.2) g/dL Albumin (3.5-5.0) g/dL 05/09/18 Range/Units 06:27 WBC (3.8-10.6) k/uL RBC (3.80-5.40) m/uL Hgb (11.4-16.0) gm/dL Hct (34.0-46.0) % Neutrophils # (1.3-7.7) k/uL Sodium 125 L (137-145) mmol/L Chloride 93 L (98-107) mmol/L BUN 25 H (7-17) mg/dL Creatinine 1.23 H (0.52-1.04) mg/dL Glucose 66 L (74-99) mg/dL POC Glucose (mg/dL) (75-99) mg/dL Calcium 8.1 L (8.4-10.2) mg/dL Total Protein 5.4 L (6.3-8.2) g/dL Albumin 3.0 L (3.5-5.0) g/dL Assessment and Plan Plan: 1. Acute inferior wall STEMI involving RCA requiring drug-eluting stent to 99% of stenosis down to 0% successful stenting, performed 05/06/2018 Dr. Marie patient currently is on Lipitor 80 mg daily,, Tenormin 25 mg daily, Plavix 75 mg daily aspirin 325 mg daily 2. Diabetes mellitus type 2 requiring NovoLog, Lantus 55 units daily, NovoLog scale, hemoglobin A1c is 7.0 3. Bladder cancer newly diagnosed presenting with cross hematuria, [facility] is anticipating bladder surgery around May 2018, Dr. Roberts, urologist . Monitor H&H as the patient is on double antiplatelet agents, the surgery needs to be delayed until both antiplatelet agents would be safely discontinued anticipate delay of surgery for at least 6 months however cardiology will decide sooner than that if required 4. Hypertensive Vascular disease on [id number] one daily no changes made 5. Dysthymia on Zoloft 50 mg daily 6. Neurocognitive deficits with memory loss, on Namenda 10 mg PAD, patient is not on any anticholinesterase medication. 7. Insomnia, hospital medication utilized for sleep was Ambien when necessary, we will schedule melatonin 6 mg at bedtime, Beer's criteria for medication safety using hypnotic sedative agents will be used very cautiously and will be avoided as much as possible in terms of Ambien use 8. GI prophylaxis with Pepcid 9. DVT prophylaxis, high risk known bladder cancer, with SCDs and patient currently ON IV heparin 10. Chronic blood loss anemia hemoglobin is 9.0, iron studies will be done 11. CKD stage III, unknown baseline, creatinine at 1.05, nephrotoxins will be avoided, 12. Hyponatremia acute, possibly nutritional evaluation, this will be checked, 13. Hypomagnesemia, replacement with monitoring 14. Mild metabolic acidosis, and is not on metformin prior to admission, continue fluids for hydration 15. Restless leg, on Mirapex 0.125 mg daily when necessary, iron studies to be obtained mite replacement 16. Acute blood loss anemia secondary to hematuria from known bladder cancer. Patient will be transfused 1 unit of packed RBCs. Consult with Dr. Blount is appreciated. Patient is plan for cystoscopy and fulguration today. Discharge plan: Most likely home with homecare next 24-48 hours. PT OT will be added for possible subacute rehab. Impression and plan of care have been directed as dictated by the signing physician. Kylah Begum nurse practitioner acting as scribe for signing physician.
[2018-05-09] MEDS ORDERED: SODIUM CHLORIDE 0.9% 1,000 ML IV ONE ×2 (14:56→16:45)
[2018-05-09] MEDS ORDERED: LEVOFLOXACIN 500MG-D5W PMX 500 MG in DEXTROSE/WATER 1 100ML.BAG IVPB STA (17:56)
[2018-05-09 18:01] LABS: HCT 25.4 % (34.0-46.0); MCH 32.2 pg (25.0-35.0); MCHC 35.7 g/dL (31.0-37.0); MCV 90.1 fL (80.0-100.0); Mean Platelet Volume 6.8; Platelet Count 237 k/uL (150-450); RBC 2.82 m/uL (3.80-5.40); RDW 14.2 % (11.5-15.5); WBC 13.5 k/uL (3.8-10.6)
[2018-05-09 18:03] LABS: HGB 9.1 gm/dL (11.4-16.0)
[2018-05-09 19:57] LABS: Glucose,Whole Blood 151 mg/dL (75-99)
[2018-05-09 20:24] LABS: ABG Base Excess -7.1 mmol/L; ABG HCO3 18 mmol/L (21-25); ABG PCO2 32 mmHg (35-45); ABG PH 7.37 (7.35-7.45); ABG PO2 >400 mmHg (83-108); ABG TCO2 19 mmol/L (19-24)
[2018-05-09] MEDS: PROPOFOL 1,000 MG in EMPTY BAG 1 BAG IV SCH (21:30)
--- NOTE | 2018-05-09 22:23 | P.OP ---
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 She initially intended to be treated with radiation therapy, it was seen at [facility] and elected to undergo a radical cystectomy next month. However, she sustained a myocardial infarction several days ago. She underwent PTCA with drug-eluting stent placement within the right coronary artery, necessitating antiplatelet therapy. She has developed intractable gross hematuria and now comes for cystoscopy with fulguration, possible bladder tumor resection with the intent of attaining hemostasis. Operative Findings: Considerable amount of clot within the urinary bladder. Friable muscle invasive tumor involving the right hemitrigone and right posterolateral bladder wall. Left anterolateral intraperitoneal bladder rupture. Description of Procedure: The patient was taken in the operating room and placed in the dorsal lithotomy position, with his legs supported in Henry stirrups. The external genitalia was prepped and draped sterilely. The 22 [place] Storz cystoscope sheath was introduced into the bladder. A large amount of clot was seen within the bladder. The Your Last Chance evacuator was used to remove the clot from the bladder. The bladder was then inspected. Friable tumor was noted within the right hemitrigone and right posterior lateral bladder wall. This was oozing and appeared to be the source of hematuria. The left ureteral orifice appeared normal. The entire bladder was inspected. No additional tumors were seen. However, a laceration was noted on the left anterolateral bladder wall, and at this time the patient was noted to have abdominal distention. The cystoscope was removed, and the 24-[place] Storz resectoscope sheath was introduced into the bladder. Using continuous flow to minimize bladder distention, areas of bleeding within the tumor were cauterized. However, the tumor was very friable and therefore this was unsuccessful. The decision was then made to resect the tumor, with the hopes of resecting down to muscle where cautery would be more effective. However, it was apparent that the tumor was invasive into the muscle and it was not possible to resect the tumor and achieve hemostasis. Nonetheless, following this the oozing was significantly improved. It should be noted that the use of electrocautery was minimized in the anticipated area of the right ureteral orifice. With hemostasis achieved to the greatest extent possible, a 22-[place] Pleitez catheter was placed and the decision was made to perform an exploratory laparotomy. However, prior to doing so, I discussed the patient's condition with her son and explained to him why this was the necessary next course of action. Anesthesia obtained 2 units of packed RBCs for transfusion. The abdomen was prepped and draped sterilely. The scalpel was used to make a midline infraumbilical skin incision. The skin was noted to be the very thin, as was the underlying linea alba, which was incised in the midline using the Bovie electrocautery. This allowed entry into the space of Retzius. It was obvious that there was intraperitoneal fluid. A small opening was made in the peritoneum, and the abdomen was suctioned. The bladder was exposed within the retroperitoneum, and the laceration was identified on the left anterolateral wall. Several small clots were suctioned from the bladder. The bladder laceration was then closed in 3 layers. The mucosa was closed using 3-0 Vicryl suture in a running fashion. The muscle was closed using 2-0 Vicryl suture in a running fashion, and a third layer of closure was performed in a Lembert fashion using 2-0 Vicryl suture. A small anterior cystotomy incision was then made, through which a 20-[place] Pleitez catheter was passed after passing the catheter through the anterior abdominal wall just to the right of the midline surgical incision. 3-0 Vicryl suture was then used in a pursestring fashion to close the bladder around the SP tube. The bladder was irrigated. The SP tube irrigated well, and there did not appear to be a significant amount of intravesical blood. Throughout the entire procedure, the patient's tissues were noted to be thin and friable. After draining the peritoneal cavity, the peritoneum was closed using 3-0 Vicryl suture in a running fashion. A JOSE J drain was left within the space of Retzius. The drain was brought out through a separate stab incision to the left of the midline surgical incision. Both the drain and the SP tube were sutured to the skin using 2-0 nylon suture. The linea alba was closed using #1 double-stranded PDS suture in a running fashion. Inferiorly, the fascia was closed using 0 Vicryl suture in an interrupted [id number] fashion. Hemostasis within the subcutaneous tissues was excellent. The skin was closed using julia. All sponge and needle counts were correct. A sterile gauze dressing was applied over the incision. Continuous bladder irrigation was started, into the suprapubic tube and out through the urethral catheter. The return was faintly pink tinged. The patient tolerated the procedure well.
[2018-05-09] MEDS: MELATONIN 3 MG TABLET PO SCH (22:29)
[2018-05-09] MEDS: ATORVASTATIN 80 MG TAB PO SCH (22:55)
[2018-05-09] MEDS: INSULIN DETEMIR 100 UNIT/ML 10 ML VIAL SQ SCH (22:56)
[2018-05-09] MEDS ORDERED: SODIUM CHLORIDE 0.9% IRRIGATIO 3,000 ML IRRIGATION ONE (23:05)
[2018-05-09] MEDS: fentaNYL (PF) 2,500 MCG in SODIUM CHLORIDE 0.9% 200 ML IV SCH (23:25)
[2018-05-10] MEDS: CLEVIDIPINE BUTYRATE 25 MG in EMPTY BAG 1 BAG IV SCH ×2 (00:37→22:01)
[2018-05-10 00:43] LABS: Glucose,Whole Blood 173 mg/dL (75-99)
[2018-05-10] MEDS: SODIUM CHLORIDE 0.9% 1,000 ML IV SCH ×4 (00:53→17:20)
[2018-05-10] MEDS: INSULIN ASPART 100 UNIT/ML 1 ML 10 ML VIAL SQ SCH ×4 (00:53→17:20)
[2018-05-10] MEDS ORDERED: SODIUM CHLORIDE 0.9% IRRIGATIO 3,000 ML IRRIGATION ONE (03:00)
[2018-05-10 04:38] LABS: Basophils % (A) 0 %; Eosinophils % (A) 0 %; HCT 22.5 % (34.0-46.0); HGB 7.8 gm/dL (11.4-16.0); Hyperchromasia Slight; Lymphocytes # (A) 0.7 k/uL (1.0-4.8); Lymphocytes % (A) 5 %; MCHC 34.9 g/dL (31.0-37.0); Mean Platelet Volume 7.2; Monocytes # (A) 0.6 k/uL (0-1.0); Monocytes % (A) 4 %; Neutrophils % (A) 90 %; Platelet Count 230 k/uL (150-450); Poikilocytosis Slight; RBC 2.53 m/uL (3.80-5.40); RDW 15.1 % (11.5-15.5); WBC 14.4 k/uL (3.8-10.6)
[2018-05-10 04:56] LABS: Albumin 2.3 g/dL (3.5-5.0); Phosphorus 4.8 mg/dL (2.5-4.5); Potassium 4.4 mmol/L (3.5-5.1); Total Bilirubin 2.5 mg/dL (0.2-1.3); Total Protein 4.6 g/dL (6.3-8.2)
[2018-05-10 05:28] LABS: Magnesium 0.9 mg/dL (1.6-2.3)
[2018-05-10] MEDS ORDERED: Magnesium Replacement Protocol 1 EACH MISC MISCELLANE PRN (05:29)
[2018-05-10 06:18] LABS: Glucose,Whole Blood 148 mg/dL (75-99)
[2018-05-10] MEDS: MAGNESIUM SULFATE-D5W PMX 1 GM in DEXTROSE/WATER 1 100ML.BAG IVPB SCH ×4 (06:26→10:36)
--- NOTE | 2018-05-10 07:42 | XR ---
EXAMINATION TYPE: XR chest 1V DATE OF EXAM: 05/10/2018 CLINICAL HISTORY: Difficulty breathing progress study. TECHNIQUE: Single AP portable semiupright view of the chest is obtained. COMPARISON: Chest x-ray from 3 days earlier FINDINGS: There is new endotracheal tube with tip at superior aortic knob level, approximately 2 to 3 cm above the jose j. There is new orogastric tube projecting below diaphragm. Cardiac silhouette size is enlarged with atherosclerotic thoracic aorta. There is persistent left bas ilar opacity improved from prior. Right lung remains clear. Multilevel spurring in the thoracic spine is present. Cholecystectomy clips are noted. IMPRESSION: 1. New ET and OGT are satisfactory in position. 2. Cardiomegaly with patchy left basilar atelectasis and/or infiltrate improved from prior.
[2018-05-10 08:05] LABS: ABG Base Excess -8.6 mmol/L; ABG HCO3 17 mmol/L (21-25); ABG Oxygen Saturation 99.3 % (94-97); ABG PCO2 28 mmHg (35-45); ABG PH 7.38 (7.35-7.45); ABG PO2 164 mmHg (83-108); ABG TCO2 17 mmol/L (19-24)
[2018-05-10] MEDS: PROPOFOL 1,000 MG in EMPTY BAG 1 BAG IV SCH ×2 (08:40→18:18)
--- NOTE | 2018-05-10 09:02 | PN ---
PROGRESS NOTE Mrs. Dowling is a 78-year-old female who presented with myocardial infarction, underwent stenting of the right coronary artery by Dr. Marie on May 06. She subsequently had evidence of recurrent severe hematuria related to her bladder CA. She underwent surgical intervention yesterday that required laparoscopic exploration. She is intubated sedated in the ICU. She is hemodynamically stable. Continues to be in sinus mechanism. There she continues to be on the aspirin 81 mg daily, Tenormin 25 mg daily, Plavix 75 mg daily, and Lipitor 80 mg daily. PHYSICAL EXAMINATION: Blood pressure running in the one teens to 120s with a heart rate in the 90s. LUNGS: Clear to auscultation anteriorly. HEART: Regular rate and rhythm, S1, S2. No S3. No rub or gallop appreciated. ABDOMEN: Soft. Dressing in place. Dry extremities. No significant edema. LAB DATA: BUN and creatinine 23 and 1.2, sodium 117. Hemoglobin of 7.8. The pH 7.38 with a pCO2 of 28 and PO2 of 164. IMPRESSION: 1. Status post bladder surgery for malignancy and recurrent severe hematuria. 2. Status post recent myocardial infarction with stenting of the right coronary artery. 3. Hyperlipidemia. RECOMMENDATION: We will continue present treatment. The patient will be continued on aspirin and Plavix. The ventilator care has been taken care of by Dr. Dsouza. I will repeat her lab data and her EKG and depending on her progress, further recommendations will be made. The prognosis remains guarded. MMODL / IJN: [id number] /
[2018-05-10] MEDS: LOSARTAN-HCTZ 50-12.5 MG 1 EACH TAB PO SCH (09:22)
[2018-05-10] MEDS: ATENOLOL 25 MG TAB PO SCH (09:22)
[2018-05-10] MEDS: CLOPIDOGREL 75 MG TAB PO SCH (09:27)
[2018-05-10] MEDS: ASPIRIN 81 MG PO SCH (09:27)
[2018-05-10] MEDS: FAMOTIDINE 20 MG TAB PO SCH (09:27)
[2018-05-10] MEDS: MEMANTINE 10 MG TAB PO SCH ×2 (10:33→22:00)
[2018-05-10] MEDS: SERTRALINE 50 MG TAB PO SCH (10:33)
[2018-05-10] MEDS: PRAMIPEXOLE 0.25 MG TAB PO SCH ×2 (10:33→22:00)
[2018-05-10] MEDS ORDERED: SODIUM CHLORIDE 0.9% IRRIG 1,000 ML BTL IRRIGATION SCH (11:30)
--- NOTE | 2018-05-10 11:33 | P.CNPUL ---
History of Present Illness Consult date: 05/10/18 Requesting physician: Sudeep Blount Reason for consult: other Chief complaint: Chest pain and hematuria. History of present illness: This is a 78-year-old female who was initially admitted on 05/06/2018, and she presented mostly with chest pain. 10 was left-sided, radiating to her shoulder , and was at least an hour and a half in duration prior to arrival to the ER. Patient was seen by cardiology on consultation, and she was felt to have acute inferior ST elevation myocardial infarction. Patient underwent PCI of mid right coronary artery. Her other medical problems including diabetes hypertension and dyslipidemia. On 05/08/2018, patient was seen by urology for hematuria which developed apparently after she had the right coronary artery angioplasty with stent placement. Patient was having gross hematuria, and apparently the patient had a known history of T1 grade 3 urothelial carcinoma early this year. She underwent resection followed by instillation of intravesicular BCG. However recently she was found to have muscle invasion and she was referred to [facility] for a second opinion. The intent was to proceed with conservative management radiation plus minus chemotherapy however a computed tomography scan at [facility] suggested more disease and the patient elected to undergo radical cystectomy. Since the patient sustained myocardial infarction on May 06 and underwent right coronary artery angioplasty with stent placement, she developed hematuria, and Dr. Blount evaluated the patient. And the patient underwent cystoscopy, evacuation of clots, transurethral resection of bladder tumor expiratory laparotomy and closure of bladder laceration. Postoperatively patient was sent to the ICU on mechanical ventilation, and her ventilator settings are tidal volume of 450 assist-control rate of 16 FiO2 of 45% and PEEP of 5. Her blood pressure was marginal, and the patient required norepinephrine overnight. After I evaluated the patient, I recommended his right femoral triple-lumen catheter placement. And I recommended more fluids to be given, she was given the fluid boluses of 0.9 normal saline, and her chest x-ray was reviewed was noted to be clear. Patient was noted to be quite agitated on mechanical ventilation restless, and her propofol dose was readjusted. Review of Systems ROS unobtainable: due to endotracheal tube Past Medical History Past Medical History: Coronary Artery Disease (CAD), Cancer, Chest Pain / Angina , Dementia, Diabetes Mellitus, Hyperlipidemia, Hypertension, Memory Impairment, Myocardial Infarction (MT), Osteoarthritis (OA) Additional Past Medical History / Comment(s): Restless leg syndrome, Bladder Cancer with Gross hematuria Last Myocardial Infarction Date:: 05/06/18 History of Any Multi-Drug Resistant Organisms: None Reported Past Surgical History: Cholecystectomy, Heart Catheterization With Stent Additional Past Surgical History / Comment(s): Arthroscopic knee surgery left, Left ankle surgery 09/17/2014, Past Anesthesia/Blood Transfusion Reactions: No Reported Reaction Date of Last Stent Placement:: 05/06/18 Smoking Status: Former smoker - Past Family History Father Family Medical History: Dementia Mother Family Medical History: Cancer (Pancreas) Sister(s) Family Medical History: Cancer (Lung cancer) Brother(s) Family Medical History: No Reported History Son(s) Family Medical History: No Reported History (Healthy) Medications and Allergies Home Medications Medication Instructions Recorded Confirmed Type Atenolol [Tenormin] 25 mg PO DAILY 09/17/14 05/06/18 History Insulin Glargine,Hum.rec.anlog 55 unit SQ DAILY 09/17/14 05/06/18 History [Lantus Solostar] Losartan/Hydrochlorothiazide 1 tab PO DAILY 09/17/14 05/06/18 History [Hyzaar 100-25 Tablet] Pravastatin Sodium [Pravachol] 40 mg PO HS 09/17/14 05/06/18 History Famotidine [Pepcid] 20 mg PO BID 05/06/18 05/06/18 History Ginkgo Biloba [place] Extract [Ginkgo] 60 mg PO BID 05/06/18 05/06/18 History Memantine [Namenda] 10 mg PO BID 05/06/18 05/06/18 History Pramipexole [Mirapex] 0.125 mg PO DAILY PRN 05/06/18 05/06/18 History Sertraline [Zoloft] 50 mg PO DAILY 05/06/18 05/06/18 History Turmeric Root Extract [Turmeric] 500 mg PO DAILY 05/06/18 05/06/18 History Ubidecarenone [Co Q-10] 200 mg PO DAILY 05/06/18 05/06/18 History Allergies Allergy/AdvReac Type Severity Reaction Status Date / Time Penicillins AdvReac Mild Unknown Verified 05/06/18 16:12 Physical Exam Vitals: Vital Signs Temp Pulse Pulse Pulse Resp BP BP 05/10/18 11:00 61 16 05/10/18 10:30 64 16 05/10/18 10:00 64 16 05/10/18 09:30 67 16 05/10/18 09:00 68 16 131/105 05/10/18 08:00 98.5 F 92 18 05/10/18 07:00 93 16 94/52 05/10/18 06:00 99.0 F 70 18 115/41 05/10/18 05:00 71 17 73/58 05/10/18 04:00 99.0 F 71 16 114/43 05/10/18 03:00 73 17 109/45 05/10/18 02:00 71 16 106/47 05/10/18 01:00 67 16 98/37 05/10/18 00:00 97.5 F L 62 14 100/44 05/09/18 23:00 59 L 16 93/43 05/09/18 22:00 93.2 F L 61 16 91/46 05/09/18 21:00 61 16 101/41 05/09/18 20:00 93.2 F L 64 16 132/64 05/09/18 14:26 98 F 67 132/61 05/09/18 14:24 97.4 F L 66 123/60 05/09/18 14:00 97.4 F L 66 127/61 05/09/18 13:56 97.4 F L 67 127/61 05/09/18 13:46 97.9 F 65 16 132/49 05/09/18 11:42 75 18 112/62 05/09/18 11:39 98.1 F 75 18 112/62 Pulse Ox 05/10/18 11:00 100 05/10/18 10:30 100 05/10/18 10:00 100 05/10/18 09:30 100 05/10/18 09:00 100 05/10/18 08:00 100 05/10/18 07:00 99 05/10/18 06:00 100 05/10/18 05:00 100 05/10/18 04:00 100 05/10/18 03:00 100 05/10/18 02:00 100 05/10/18 01:00 100 05/10/18 00:00 100 05/09/18 23:00 100 05/09/18 22:00 100 05/09/18 21:00 100 05/09/18 20:00 100 05/09/18 14:26 96 05/09/18 14:24 96 05/09/18 14:00 97 05/09/18 13:56 98 05/09/18 13:46 05/09/18 11:42 96 05/09/18 11:39 96 Intake and Output 05/09/18 05/10/18 05/10/18 22:59 06:59 14:59 Intake Total 4170 3625 1400 Output Total 1875 5345 1800 Balance 2295 -1720 -400 Intake: IV 3550 3625 1300 0.9 656 238 1310 Bladder Irrigation 3000 3000 Intake, IV Titration 100 Amount Propofol 1,000 mg In 100 Empty Bag 1 bag @ Titrate IV .Q0M [facility] Rx#: [id number] Blood Product 620 Rc As-1 Unit 310 [id number] Rc As-3 Unit 310 [id number] Output: Gastric Drainage 300 Drainage 45 Abdomen 45 Urine 1500 Estimated Blood Loss 75 Other 1800 5300 Other: Voiding Method Indwelling Catheter Indwelling Catheter Weight 86.7 kg ABP, PAP, CO, CI - Last 8 Hours Arterial Blood Pressure 105/37 Arterial Blood Pressure 106/37 Arterial Blood Pressure 107/35 Arterial Blood Pressure 123/38 Arterial Blood Pressure 106/35 Arterial Blood Pressure 131/43 Arterial Blood Pressure 178/60 Arterial Blood Pressure 112/44 Arterial Blood Pressure 141/50 Arterial Blood Pressure 104/38 Physical Exam: Revealed a 78-year-old female on propofol, on mechanical ventilation, agitated and restless while being ventilated. Head: Atraumatic, normocephalic. HEENT:[Neck is supple.] [No neck masses.] [No thyromegaly.] [No JVD.] Endotracheal tube is intact. Moist mucous membranes noted. Orogastric tube is intact. Chest: [Clear throughout, no crackles, no rhonchi, no wheezes.] Cardiac Exam: [Normal S1 and S2, no S3 gallop, no murmur.] Abdomen: [Soft, nontender, no megaly, no rebound, no guarding, normal bowel sounds.] Bladder tubes were noted, and the patient is receiving bladder irrigation continuously. Extremities: [No clubbing, no edema, no cyanosis.] Neurological Exam: Cannot be assessed. Psychiatric: Cannot be assessed, patient is intubated and sedated. Skin: No rashes. Results - Laboratory Findings CBC and BMP: 05/10/18 04:26 05/10/18 04:26 ABG ABG pH 7.38 (7.35-7.45) 05/10/18 08:03 ABG pCO2 28 mmHg (35-45) L 05/10/18 08:03 ABG pO2 164 mmHg (83-108) H 05/10/18 08:03 ABG O2 Saturation 99.3 % (94-97) H 05/10/18 08:03 PT/INR, D-dimer PT 10.9 sec (9.0-12.0) 05/06/18 01:00 INR 1.1 (<1.2) 05/06/18 01:00 Abnormal lab findings: Abnormal Labs 05/06/18 05/06/18 05/06/18 01:00 01:00 01:00 WBC RBC 3.27 L Hgb 10.2 L Hct 30.1 L Neutrophils # 8.6 H Lymphocytes # ABG pCO2 ABG pO2 ABG HCO3 ABG Total CO2 ABG O2 Saturation Sodium 126 L Chloride 91 L Carbon Dioxide 20 L BUN 25 H Creatinine 1.10 H Glucose 160 H POC Glucose (mg/dL) Hemoglobin A1c Calcium 8.2 L Phosphorus Magnesium Iron Iron Saturation Total Bilirubin AST Alkaline Phosphatase CK-MB (CK-2) 4.1 H Troponin I 0.448 H* Total Protein Albumin Crossmatch 05/06/18 05/06/18 05/06/18 01:00 03:43 05:10 WBC RBC 2.87 L Hgb 9.0 L Hct 26.5 L Neutrophils # Lymphocytes # ABG pCO2 ABG pO2 ABG HCO3 ABG Total CO2 ABG O2 Saturation Sodium Chloride Carbon Dioxide BUN Creatinine Glucose POC Glucose (mg/dL) 170 H Hemoglobin A1c 6.3 H Calcium Phosphorus Magnesium Iron Iron Saturation Total Bilirubin AST Alkaline Phosphatase CK-MB (CK-2) Troponin I Total Protein Albumin Crossmatch 05/06/18 05/06/18 05/06/18 05:10 07:55 11:34 WBC RBC Hgb Hct Neutrophils # Lymphocytes # ABG pCO2 ABG pO2 ABG HCO3 ABG Total CO2 ABG O2 Saturation Sodium 123 L Chloride 90 L Carbon Dioxide 20 L BUN 23 H Creatinine 1.05 H Glucose 145 H POC Glucose (mg/dL) 127 H 150 H Hemoglobin A1c Calcium Phosphorus Magnesium 1.1 L Iron Iron Saturation Total Bilirubin AST Alkaline Phosphatase CK-MB (CK-2) Troponin I Total Protein Albumin Crossmatch 05/06/18 05/06/18 05/07/18 16:57 20:14 04:48 WBC RBC Hgb Hct Neutrophils # Lymphocytes # ABG pCO2 ABG pO2 ABG HCO3 ABG Total CO2 ABG O2 Saturation Sodium Chloride Carbon Dioxide BUN Creatinine Glucose POC Glucose (mg/dL) 139 H 203 H Hemoglobin A1c Calcium Phosphorus Magnesium Iron 29 L Iron Saturation 8.98 L Total Bilirubin AST Alkaline Phosphatase CK-MB (CK-2) Troponin I Total Protein Albumin Crossmatch 05/07/18 05/07/18 05/07/18 04:48 04:48 06:27 WBC RBC 2.94 L Hgb 9.3 L Hct 27.7 L Neutrophils # Lymphocytes # ABG pCO2 ABG pO2 ABG HCO3 ABG Total CO2 ABG O2 Saturation Sodium 130 L Chloride 96 L Carbon Dioxide BUN 26 H Creatinine 1.35 H Glucose 54 L POC Glucose (mg/dL) 74 L Hemoglobin A1c Calcium Phosphorus Magnesium Iron Iron Saturation Total Bilirubin AST Alkaline Phosphatase CK-MB (CK-2) Troponin I Total Protein Albumin Crossmatch 05/07/18 05/07/18 05/07/18 09:32 11:55 20:17 WBC RBC Hgb Hct Neutrophils # Lymphocytes # ABG pCO2 ABG pO2 ABG HCO3 ABG Total CO2 ABG O2 Saturation Sodium Chloride Carbon Dioxide BUN Creatinine Glucose POC Glucose (mg/dL) 72 L 214 H 170 H Hemoglobin A1c Calcium Phosphorus Magnesium Iron Iron Saturation Total Bilirubin AST Alkaline Phosphatase CK-MB (CK-2) Troponin I Total Protein Albumin Crossmatch 05/08/18 05/08/18 05/08/18 00:19 05:59 05:59 WBC 12.1 H 10.9 H RBC 2.86 L 2.76 L Hgb 9.1 L 8.8 L Hct 26.8 L 25.9 L Neutrophils # 8.8 H 8.0 H Lymphocytes # ABG pCO2 ABG pO2 ABG HCO3 ABG Total CO2 ABG O2 Saturation Sodium 123 L Chloride 89 L Carbon Dioxide 21 L BUN 28 H Creatinine 1.35 H Glucose 160 H POC Glucose (mg/dL) Hemoglobin A1c Calcium Phosphorus Magnesium 1.4 L Iron Iron Saturation Total Bilirubin AST Alkaline Phosphatase CK-MB (CK-2) Troponin I Total Protein Albumin Crossmatch 05/08/18 05/08/18 05/08/18 06:09 08:51 13:51 WBC 10.8 H RBC 2.52 L Hgb 8.1 L Hct 23.5 L Neutrophils # 9.0 H Lymphocytes # ABG pCO2 ABG pO2 ABG HCO3 ABG Total CO2 ABG O2 Saturation Sodium Chloride Carbon Dioxide BUN Creatinine Glucose POC Glucose (mg/dL) 170 H 129 H Hemoglobin A1c Calcium Phosphorus Magnesium Iron Iron Saturation Total Bilirubin AST Alkaline Phosphatase CK-MB (CK-2) Troponin I Total Protein Albumin Crossmatch 05/08/18 05/08/18 05/08/18 17:03 20:31 20:47 WBC RBC 2.34 L Hgb 7.2 L Hct 21.9 L Neutrophils # Lymphocytes # ABG pCO2 ABG pO2 ABG HCO3 ABG Total CO2 ABG O2 Saturation Sodium Chloride Carbon Dioxide BUN Creatinine Glucose POC Glucose (mg/dL) 122 H 223 H Hemoglobin A1c Calcium Phosphorus Magnesium Iron Iron Saturation Total Bilirubin AST Alkaline Phosphatase CK-MB (CK-2) Troponin I Total Protein Albumin Crossmatch 05/09/18 05/09/18 05/09/18 06:27 06:27 11:11 WBC RBC 2.07 L Hgb 6.7 L* Hct 19.4 L* Neutrophils # Lymphocytes # ABG pCO2 ABG pO2 ABG HCO3 ABG Total CO2 ABG O2 Saturation Sodium 125 L Chloride 93 L Carbon Dioxide BUN 25 H Creatinine 1.23 H Glucose 66 L POC Glucose (mg/dL) Hemoglobin A1c Calcium 8.1 L Phosphorus Magnesium Iron Iron Saturation Total Bilirubin AST Alkaline Phosphatase CK-MB (CK-2) Troponin I Total Protein 5.4 L Albumin 3.0 L Crossmatch See Detail 05/09/18 05/09/18 05/09/18 17:37 19:45 20:22 WBC 13.5 H RBC 2.82 L Hgb 9.1 L D Hct 25.4 L Neutrophils # Lymphocytes # ABG pCO2 32 L ABG pO2 >400 H ABG HCO3 18 L ABG Total CO2 ABG O2 Saturation 100.0 H Sodium Chloride Carbon Dioxide BUN Creatinine Glucose POC Glucose (mg/dL) 151 H Hemoglobin A1c Calcium Phosphorus Magnesium Iron Iron Saturation Total Bilirubin AST Alkaline Phosphatase CK-MB (CK-2) Troponin I Total Protein Albumin Crossmatch 05/10/18 05/10/18 05/10/18 00:31 04:26 04:26 WBC 14.4 H RBC 2.53 L Hgb 7.8 L Hct 22.5 L Neutrophils # 13.0 H Lymphocytes # 0.7 L ABG pCO2 ABG pO2 ABG HCO3 ABG Total CO2 ABG O2 Saturation Sodium 117 L* Chloride 91 L Carbon Dioxide 17 L BUN 23 H Creatinine 1.20 H Glucose 131 H POC Glucose (mg/dL) 173 H Hemoglobin A1c Calcium 7.0 L Phosphorus 4.8 H Magnesium 0.9 L* Iron Iron Saturation Total Bilirubin 2.5 H AST 49 H Alkaline Phosphatase 33 L CK-MB (CK-2) Troponin I Total Protein 4.6 L Albumin 2.3 L Crossmatch 05/10/18 05/10/18 06:07 08:03 WBC RBC Hgb Hct Neutrophils # Lymphocytes # ABG pCO2 28 L ABG pO2 164 H ABG HCO3 17 L ABG Total CO2 17 L ABG O2 Saturation 99.3 H Sodium Chloride Carbon Dioxide BUN Creatinine Glucose POC Glucose (mg/dL) 148 H Hemoglobin A1c Calcium Phosphorus Magnesium Iron Iron Saturation Total Bilirubin AST Alkaline Phosphatase CK-MB (CK-2) Troponin I Total Protein Albumin Crossmatch - Diagnostic Findings Chest x-ray: image reviewed (Cardiomegaly with minimal left basilar atelectasis is noted.) Assessment and Plan Assessment: Impression: 1 postoperative hypoxic respiratory failure, requiring intubation and mechanical ventilation, not expected. Exact etiology is not clear, could be related to significant pain medication and sedatives given postoperatively. Patient is not ready to be extubated in the immediate postoperative period, hence no plans to extubate at this point until the blood pressure is more stable , and labs including hypernatremia corrected. 2 status post cystoscopy, evacuation of clot, transurethral resection of bladder tumor, exploratory laparotomy and closure of bladder laceration. Postoperative day #1. [address] elevation myocardial infarction requiring drug eluting stent placement in RCA by Dr. Katz. 4 acute blood loss secondary to hematuria from known bladder cancer. 5 multiple comorbidities including hypertension, bladder cancer which was recently diagnosed, insomnia, electrolytes imbalance with hyponatremia which is most likely related to bladder irrigation. Chronic kidney disease stage III, Recommendation: Continue present treatment plan, continue ventilatory support, hemodynamic support, patient will likely improve with fluid boluses, continue cardiac meds for her recent acute ST elevation myocardial infarction. Again the patient is not quite ready for weaning, I have evaluated her ventilator settings, her chest x-ray, and I plan to continue ventilatory support for now. Continue GI and DVT prophylaxis. We'll continue to follow. Critical care time is 45 minutes Time with Patient: Greater than 30
--- NOTE | 2018-05-10 12:15 | P.PN ---
Subjective Progress Note Date: 05/10/18 Principal diagnosis: POD #1, s/p TUR-BT/exploratory laparotomy with closure of bladder rupture. Mrs. Dowling is intubated. She is hemodynamically stable. Objective - Vital Signs Vital signs: Vital Signs Temp 98.5 F 05/10/18 08:00 Pulse 61 05/10/18 11:00 Resp 16 05/10/18 11:00 BP 131/105 05/10/18 09:00 Pulse Ox 100 05/10/18 11:00 Intake & Output 05/09/18 05/10/18 05/10/18 18:59 06:59 18:59 Intake Total 1920 6775 1400 Output Total 900 7220 1800 Balance 1020 445 -400 Weight 86.7 kg 86.7 kg Intake: IV 1300 6775 1300 0.9 775 1300 Bladder Irrigation 6000 Intake, IV Titration 100 Amount Propofol 1,000 mg In 100 Empty Bag 1 bag @ Titrate IV .Q0M [facility] Rx#: [id number] Blood Product 620 Rc As-1 Unit 310 [id number] Rc As-3 Unit 310 [id number] Output: Gastric Drainage 300 Drainage 45 Abdomen 45 Urine 900 1500 Estimated Blood Loss 75 Other 7100 Other: Voiding Method Toilet Indwelling Catheter ABP, PAP, CO, CI - Last Documented Arterial Blood Pressure 105/37 - Constitutional General appearance: Present: average body habitus, no acute distress - Gastrointestinal Gastrointestinal Comment(s): Soft, non-distended. Dressing essentially dry and intact. - Labs CBC & Chem 7: 05/10/18 04:26 05/10/18 04:26 Labs: Abnormal Lab Results - Last 24 Hours (Table) 05/09/18 05/09/18 05/09/18 Range/Units 11:11 17:37 19:45 WBC 13.5 H (3.8-10.6) k/uL RBC 2.82 L (3.80-5.40) m/uL Hgb 9.1 L D (11.4-16.0) gm/dL Hct 25.4 L (34.0-46.0) % Neutrophils # (1.3-7.7) k/uL Lymphocytes # (1.0-4.8) k/uL ABG pCO2 (35-45) mmHg ABG pO2 (83-108) mmHg ABG HCO3 (21-25) mmol/L ABG Total CO2 (19-24) mmol/L ABG O2 Saturation (94-97) % Sodium (137-145) mmol/L Chloride (98-107) mmol/L Carbon Dioxide (22-30) mmol/L BUN (7-17) mg/dL Creatinine (0.52-1.04) mg/dL Glucose (74-99) mg/dL POC Glucose (mg/dL) 151 H (75-99) mg/dL Calcium (8.4-10.2) mg/dL Phosphorus (2.5-4.5) mg/dL Magnesium (1.6-2.3) mg/dL Total Bilirubin (0.2-1.3) mg/dL AST (14-36) U/L Alkaline Phosphatase (38-126) U/L Total Protein (6.3-8.2) g/dL Albumin (3.5-5.0) g/dL Crossmatch See Detail 05/09/18 05/10/18 05/10/18 Range/Units 20:22 00:31 04:26 WBC 14.4 H (3.8-10.6) k/uL RBC 2.53 L (3.80-5.40) m/uL Hgb 7.8 L (11.4-16.0) gm/dL Hct 22.5 L (34.0-46.0) % Neutrophils # 13.0 H (1.3-7.7) k/uL Lymphocytes # 0.7 L (1.0-4.8) k/uL ABG pCO2 32 L (35-45) mmHg ABG pO2 >400 H (83-108) mmHg ABG HCO3 18 L (21-25) mmol/L ABG Total CO2 (19-24) mmol/L ABG O2 Saturation 100.0 H (94-97) % Sodium (137-145) mmol/L Chloride (98-107) mmol/L Carbon Dioxide (22-30) mmol/L BUN (7-17) mg/dL Creatinine (0.52-1.04) mg/dL Glucose (74-99) mg/dL POC Glucose (mg/dL) 173 H (75-99) mg/dL Calcium (8.4-10.2) mg/dL Phosphorus (2.5-4.5) mg/dL Magnesium (1.6-2.3) mg/dL Total Bilirubin (0.2-1.3) mg/dL AST (14-36) U/L Alkaline Phosphatase (38-126) U/L Total Protein (6.3-8.2) g/dL Albumin (3.5-5.0) g/dL Crossmatch 05/10/18 05/10/18 05/10/18 Range/Units 04:26 06:07 08:03 WBC (3.8-10.6) k/uL RBC (3.80-5.40) m/uL Hgb (11.4-16.0) gm/dL Hct (34.0-46.0) % Neutrophils # (1.3-7.7) k/uL Lymphocytes # (1.0-4.8) k/uL ABG pCO2 28 L (35-45) mmHg ABG pO2 164 H (83-108) mmHg ABG HCO3 17 L (21-25) mmol/L ABG Total CO2 17 L (19-24) mmol/L ABG O2 Saturation 99.3 H (94-97) % Sodium 117 L* (137-145) mmol/L Chloride 91 L (98-107) mmol/L Carbon Dioxide 17 L (22-30) mmol/L BUN 23 H (7-17) mg/dL Creatinine 1.20 H (0.52-1.04) mg/dL Glucose 131 H (74-99) mg/dL POC Glucose (mg/dL) 148 H (75-99) mg/dL Calcium 7.0 L (8.4-10.2) mg/dL Phosphorus 4.8 H (2.5-4.5) mg/dL Magnesium 0.9 L* (1.6-2.3) mg/dL Total Bilirubin 2.5 H (0.2-1.3) mg/dL AST 49 H (14-36) U/L Alkaline Phosphatase 33 L (38-126) U/L Total Protein 4.6 L (6.3-8.2) g/dL Albumin 2.3 L (3.5-5.0) g/dL Crossmatch Microbiology - Last 24 Hours (Table) 05/10/18 00:12 Sputum Culture - Preliminary Sputum Assessment and Plan (1) Gross hematuria Current Visit: Yes Status: Acute Code(s): R31.0 - GROSS HEMATURIA SNOMED Code(s): 369497202 (2) Malignant neoplasm of bladder Current Visit: Yes Status: Acute Code(s): C67.9 - MALIGNANT NEOPLASM OF BLADDER, UNSPECIFIED SNOMED Code(s): 391899594 Plan: Continuous bladder irrigation is running smoothly. The output is completely clear. JOSE J drainage is scant. She is urologically stable, and in view of this I do not intend to make any changes at this time.
--- NOTE | 2018-05-10 12:23 | PCN ---
PROCEDURE NOTE Operative report is placement of right femoral triple-lumen catheter. PREOPERATIVE DIAGNOSIS: Respiratory failure, hypotension. POSTOPERATIVE DIAGNOSIS: Respiratory failure, hypotension. ANESTHESIA USED: 2 mL of 1% lidocaine. PROCEDURE: Patient was placed in the supine position, the area of the right groin was prepared in a sterile fashion and drapes were applied. The area was locally anesthetized with lidocaine. Then, the right femoral vein was easily cannulated, a guidewire was placed. Over the guidewire, dilatation was done. Then a triple-lumen catheter was inserted over the guidewire, the guidewire was removed and there was evidence of good flow in the 3 different ports of the triple-lumen catheter. Line was secured using 3.0 silk sutures. No evidence of any immediate complication. MMODL / IJN: [id number] /
[2018-05-10 12:37] LABS: Glucose,Whole Blood 172 mg/dL (75-99)
[2018-05-10] MEDS: SODIUM CHLORIDE 0.9% IRRIGATIO 3,000 ML IRRIGATION SCH (13:07)
[2018-05-10 15:12] LABS: Sodium 118 mmol/L (137-145)
[2018-05-10 17:15] LABS: Glucose,Whole Blood 121 mg/dL (75-99)
--- NOTE | 2018-05-10 18:50 | P.PN ---
Subjective Progress Note Date: 05/10/18 This is a 78-year-old pleasant female patient of Dr. Joshua Cerna underlying history of dementia, diabetes mellitus type 2, hypertension, hyperlipidemia, who is currently a very poor historian. Patient provided some limited history that says chest discomfort and left shoulder discomfort, requiring ER evaluation. Patient was resting at that time, she denies any shortness of breath or diaphoresis no nausea or vomiting, no lightheadedness or dizziness, no syncope. EMS was called in, EKG was performed that shows acute ST segment elevation in the inferior leads, and was sent in directly to the cardiac carpenter/labor and went for an emergent cardiac cath requiring drug-eluting stent involving the RCA from a 99% stenosis to 0% stenosis post-stenting. Patient was chest pain-free after the procedure, currently now requiring double antiplatelet platelet agents. Patient was last seen by Dr. Lewis 04/08/2018 for diabetic foot [id number] encounter for diabetic shoes Particular history is positive for hematuria on seen by Dr. Martinez and was referred to [facility] Dr. Roberts [phone] for which bladder surgery would be performed in May 2018, for the suspicious mass highly suggestive of malignancy Echocardiogram performed 05/06/2018 normal sinus rhythm, EF 50-55%, basal inferolateral hypokinesia, thickened aortic valve, mild aortic regurgitation, mild TR, mild MR, right ventricular systolic pressure of 16, aortic root size is normal, normal pericardium Cardiac cath report 05/06/2018, Dr. Katz, showed right coronary artery need stenosis from a 99% to 0% using Xience drug-eluting stent 3.0 x 18 mm, through the right radial artery approach. Findings shows RCA distally with mild disease , PDA and PLV branches have mild disease, left main normal, left circumflex complex normal, however there is 30% to 40% occlusive disease after the first OM branch, proximal LAD mild disease, Patient was comfortable when seen in the presence of the son who is POA, full discussion was made regarding the intervention for the STEMI as well as the need to delay the bladder surgery as it would require treatment of the cardiac occlusive disease first and was recommended to have cardiac clearance to be off the double antiplatelet agents prior to the anticipated bladder surgery 05/07: Patient will be transferred out of the intensive care unit today to selective care. She denies having any chest pain or shortness of breath. She does continue to have small amount of bright red blood in her urine but no clots , positive sediment. She has been encouraged to drink a glass of water by her physician in [facility]. Ferrlecit will be ordered. Anticipate possible discharge in next 24-48 hours. 05/08: Patient is resting comfortably up in a chair. She is denying having any chest pain or shortness of breath. Patient continues to have bright red blood in her urine. She had a large amount in the evening with 6-7 large clots and a another episode in the morning without any clots. Recently hemoglobin this morning was 8. Patient was seen by urology a three-way Pleitez catheter was placed in manually irrigated with removal of 1 clots. Continues bladder irrigation will continue with manual irrigation of the catheter as needed. 05/09: This morning, patient has hemoglobin of 6.71 unit packed RBCs will be ordered. Dr. Blount has evaluated with plan for cystoscopy and fulguration today. She had Pleitez catheter placed yesterday for retention and has noted hematuria which has been present since admission. Patient denies any chest pain , no abdominal pain, no lightheadedness. BUN 25 and creatinine 1.23 and sodium 125. Blood sugars have been labile with range of 78-223. Vital signs are stable, afebrile. 05/10: Patient is currently on vent after cystoscopy, transurethral resection of bladder tumor, exploratory laparotomy with closure of bladder laceration. Continuous bladder irrigation into suprapubic tube and throughout the urethral catheter. Shows a return with faint of pink tinged urine. Patient is hemodynamically stable. She appears to be resting comfortably. The CBC 14.4, hemoglobin 7.8, sodium 118, chloride 91. We will obtain osmolarity, sodium level and a urine random sodium. Review of systems: Unable to obtain patient is intubated and on a vent . Objective - Vital Signs Vital signs: Vital Signs Temp 97.4 F L 05/10/18 16:00 Pulse 57 L 05/10/18 18:00 Resp 16 05/10/18 18:00 BP 83/23 05/10/18 16:00 Pulse Ox 100 05/10/18 18:00 Intake & Output 05/09/18 05/10/18 05/10/18 18:59 06:59 18:59 Intake Total 1920 6775 5053.958 Output Total 900 7220 5000 Balance 1020 -445 53.958 Weight 86.7 kg 86.7 kg Intake: IV 1300 6775 4820 0.9 775 1820 Bladder Irrigation 6000 3000 Intake, IV Titration 233.958 Amount Propofol 1,000 mg In 200 Empty Bag 1 bag @ Titrate IV .Q0M [facility] Rx#: [id number] fentaNYL (PF) 2,500 mcg 33.958 In Sodium Chloride 0.9% 200 ml @ 100 MCG/HR 10 mls/hr IV .Q24H [facility] Rx#: [id number] Blood Product 620 Rc As-1 Unit 310 [id number] Rc As-3 Unit 310 [id number] Output: Gastric Drainage 300 Drainage 45 Abdomen 45 Urine 900 4700 Estimated Blood Loss 75 Other 7100 Other: Voiding Method Toilet Indwelling Catheter Indwelling Catheter ABP, PAP, CO, CI - Last Documented Arterial Blood Pressure 118/37 - Constitutional General appearance: Present: no acute distress, obese - EENT Eyes: Present: EOMI, PERRLA - Respiratory Respiratory: bilateral: CTA, negative: diminished, dullness, rales, rhonchi, wheezing - Cardiovascular Rhythm: regular Heart sounds: normal: S1, S2 Abnormal Heart Sounds: Absent: systolic murmur, diastolic murmur, rub, S3 Gallop , S4 Gallop, click, other - Gastrointestinal General gastrointestinal: Present: normal bowel sounds, soft. Absent: organomegaly, tenderness - Genitourinary Genitourinary Comment(s): Bladder tubes are in place and receiving continuous irrigation - Integumentary Integumentary: Present: normal turgor - Neurologic Neurologic Comment(s): Patient is intubated and unable to assess - Musculoskeletal Musculoskeletal Comment(s): Can Not be assessed patient is intubated - Psychiatric Psychiatric Comment(s): Patient is intubated - Labs CBC & Chem 7: 05/10/18 04:26 05/10/18 14:24 Labs: Abnormal Lab Results - Last 24 Hours (Table) 05/09/18 05/09/18 05/10/18 Range/Units 19:45 20:22 00:31 WBC (3.8-10.6) k/uL RBC (3.80-5.40) m/uL Hgb (11.4-16.0) gm/dL Hct (34.0-46.0) % Neutrophils # (1.3-7.7) k/uL Lymphocytes # (1.0-4.8) k/uL ABG pCO2 32 L (35-45) mmHg ABG pO2 >400 H (83-108) mmHg ABG HCO3 18 L (21-25) mmol/L ABG Total CO2 (19-24) mmol/L ABG O2 Saturation 100.0 H (94-97) % Sodium (137-145) mmol/L Chloride (98-107) mmol/L Carbon Dioxide (22-30) mmol/L BUN (7-17) mg/dL Creatinine (0.52-1.04) mg/dL Glucose (74-99) mg/dL POC Glucose (mg/dL) 151 H 173 H (75-99) mg/dL Osmolality (280-301) mosm/kg Calcium (8.4-10.2) mg/dL Phosphorus (2.5-4.5) mg/dL Magnesium (1.6-2.3) mg/dL Total Bilirubin (0.2-1.3) mg/dL AST (14-36) U/L Alkaline Phosphatase (38-126) U/L Total Protein (6.3-8.2) g/dL Albumin (3.5-5.0) g/dL 05/10/18 05/10/18 05/10/18 Range/Units 04:26 04:26 06:07 WBC 14.4 H (3.8-10.6) k/uL RBC 2.53 L (3.80-5.40) m/uL Hgb 7.8 L (11.4-16.0) gm/dL Hct 22.5 L (34.0-46.0) % Neutrophils # 13.0 H (1.3-7.7) k/uL Lymphocytes # 0.7 L (1.0-4.8) k/uL ABG pCO2 (35-45) mmHg ABG pO2 (83-108) mmHg ABG HCO3 (21-25) mmol/L ABG Total CO2 (19-24) mmol/L ABG O2 Saturation (94-97) % Sodium 117 L* (137-145) mmol/L Chloride 91 L (98-107) mmol/L Carbon Dioxide 17 L (22-30) mmol/L BUN 23 H (7-17) mg/dL Creatinine 1.20 H (0.52-1.04) mg/dL Glucose 131 H (74-99) mg/dL POC Glucose (mg/dL) 148 H (75-99) mg/dL Osmolality (280-301) mosm/kg Calcium 7.0 L (8.4-10.2) mg/dL Phosphorus 4.8 H (2.5-4.5) mg/dL Magnesium 0.9 L* (1.6-2.3) mg/dL Total Bilirubin 2.5 H (0.2-1.3) mg/dL AST 49 H (14-36) U/L Alkaline Phosphatase 33 L (38-126) U/L Total Protein 4.6 L (6.3-8.2) g/dL Albumin 2.3 L (3.5-5.0) g/dL 05/10/18 05/10/18 05/10/18 Range/Units 08:03 12:25 14:24 WBC (3.8-10.6) k/uL RBC (3.80-5.40) m/uL Hgb (11.4-16.0) gm/dL Hct (34.0-46.0) % Neutrophils # (1.3-7.7) k/uL Lymphocytes # (1.0-4.8) k/uL ABG pCO2 28 L (35-45) mmHg ABG pO2 164 H (83-108) mmHg ABG HCO3 17 L (21-25) mmol/L ABG Total CO2 17 L (19-24) mmol/L ABG O2 Saturation 99.3 H (94-97) % Sodium 118 L* (137-145) mmol/L Chloride (98-107) mmol/L Carbon Dioxide (22-30) mmol/L BUN (7-17) mg/dL Creatinine (0.52-1.04) mg/dL Glucose (74-99) mg/dL POC Glucose (mg/dL) 172 H (75-99) mg/dL Osmolality 247 L* (280-301) mosm/kg Calcium (8.4-10.2) mg/dL Phosphorus (2.5-4.5) mg/dL Magnesium (1.6-2.3) mg/dL Total Bilirubin (0.2-1.3) mg/dL AST (14-36) U/L Alkaline Phosphatase (38-126) U/L Total Protein (6.3-8.2) g/dL Albumin (3.5-5.0) g/dL 05/10/18 Range/Units 17:04 WBC (3.8-10.6) k/uL RBC (3.80-5.40) m/uL Hgb (11.4-16.0) gm/dL Hct (34.0-46.0) % Neutrophils # (1.3-7.7) k/uL Lymphocytes # (1.0-4.8) k/uL ABG pCO2 (35-45) mmHg ABG pO2 (83-108) mmHg ABG HCO3 (21-25) mmol/L ABG Total CO2 (19-24) mmol/L ABG O2 Saturation (94-97) % Sodium (137-145) mmol/L Chloride (98-107) mmol/L Carbon Dioxide (22-30) mmol/L BUN (7-17) mg/dL Creatinine (0.52-1.04) mg/dL Glucose (74-99) mg/dL POC Glucose (mg/dL) 121 H (75-99) mg/dL Osmolality (280-301) mosm/kg Calcium (8.4-10.2) mg/dL Phosphorus (2.5-4.5) mg/dL Magnesium (1.6-2.3) mg/dL Total Bilirubin (0.2-1.3) mg/dL AST (14-36) U/L Alkaline Phosphatase (38-126) U/L Total Protein (6.3-8.2) g/dL Albumin (3.5-5.0) g/dL Microbiology - Last 24 Hours (Table) 05/10/18 00:12 Gram Stain - Preliminary Sputum Sputum Culture - Preliminary Assessment and Plan Plan: 1. Acute inferior wall STEMI involving RCA requiring drug-eluting stent to 99% of stenosis down to 0% successful stenting, performed 05/06/2018 Dr. Marie patient currently is on Lipitor 80 mg daily,, Tenormin 25 mg daily, Plavix 75 mg daily aspirin 81 mg daily 2. Diabetes mellitus type 2 requiring NovoLog, Lantus 55 units daily, NovoLog scale, hemoglobin A1c is 7.0 3. Bladder cancer newly diagnosed presenting with cross hematuria, [facility] is anticipating bladder surgery around May 2018, Dr. Roberts, urologist . Monitor H&H as the patient is on double antiplatelet agents, the surgery needs to be delayed until both antiplatelet agents would be safely discontinued anticipate delay of surgery for at least 6 months however cardiology will decide sooner than that if required. Dr. Blount consult appreciated. Cystoscopy, evacuation of clot, transverse resection of bladder tumor, exploratory laparotomy with closure of bladder laceration performed. Continuous bladder irrigation through suprapubic and urethra catheters. 4. Hypertensive Vascular disease on [id number] one daily no changes made 5. Dysthymia on Zoloft 50 mg daily 6. Neurocognitive deficits with memory loss, on Namenda 10 mg PAD, patient is not on any anticholinesterase medication. 7. Insomnia, hospital medication utilized for sleep was Ambien when necessary, we will schedule melatonin 6 mg at bedtime, Beer's criteria for medication safety using hypnotic sedative agents will be used very cautiously and will be avoided as much as possible in terms of Ambien use 8. GI prophylaxis with Pepcid 9 DVT prophylaxis, high risk known bladder cancer, with SCDs and patient currently ON IV heparin 10 Chronic blood loss anemia hemoglobin is 9.0, iron studies will be done 11 CK D stage III, unknown baseline, creatinine at 1.05, nephrotoxins will be avoided, 12 Hyponatremia acute, possibly nutritional evaluation, consult nephrology. urine osmolarity, repeat sodium, serum osmolarity 13 Hypomagnesemia, replacement with monitoring 14 Mild metabolic acidosis, and is not on metformin prior to admission, continue fluids for hydration 15 Restless leg, on Mirapex 0.125 mg daily when necessary, iron studies to be obtained mite replacement Discharge plan: Most likely home with homecare next 24-48 hours. Impression and plan of care have been directed as dictated by the signing physician. Edelmira Zee nurse practitioner acting as scribe for signing physician.
[2018-05-10] MEDS: CHLORHEXIDINE GLUCONATE 15 ML CUP MUCOUS MEM SCH (21:45)
[2018-05-10] MEDS: MELATONIN 3 MG TABLET PO SCH (21:45)
[2018-05-10] MEDS: ATORVASTATIN 80 MG TAB PO SCH (21:46)
[2018-05-10] MEDS: INSULIN DETEMIR 100 UNIT/ML 10 ML VIAL SQ SCH (22:01)
[2018-05-10] MEDS: fentaNYL (PF) 2,500 MCG in SODIUM CHLORIDE 0.9% 200 ML IV SCH (22:02)
[2018-05-10 22:11] LABS: Glucose,Whole Blood 105 mg/dL (75-99)
[2018-05-11 00:03] LABS: Glucose,Whole Blood 100 mg/dL (75-99)
[2018-05-11] MEDS: INSULIN ASPART 100 UNIT/ML 1 ML 10 ML VIAL SQ SCH ×4 (01:36→17:28)
[2018-05-11 05:32] LABS: Basophils % (A) 0 %; Eosinophils # (A) 0.2 k/uL (0-0.7); Eosinophils % (A) 2 %; Lymphocytes % (A) 10 %; MCH 32.3 pg (25.0-35.0); MCHC 35.6 g/dL (31.0-37.0); MCV 90.7 fL (80.0-100.0); Mean Platelet Volume 7.2; Monocytes # (A) 0.6 k/uL (0-1.0); Monocytes % (A) 6 %; Neutrophils # (A) 8.3 k/uL (1.3-7.7); Neutrophils % (A) 82 %; Platelet Count 179 k/uL (150-450); RDW 15.5 % (11.5-15.5); WBC 10.2 k/uL (3.8-10.6)
[2018-05-11 05:42] LABS: Albumin 2.1 g/dL (3.5-5.0); Calcium 7.3 mg/dL (8.4-10.2); Potassium 3.6 mmol/L (3.5-5.1); Total Bilirubin 0.8 mg/dL (0.2-1.3); Total Protein 4.1 g/dL (6.3-8.2)
[2018-05-11 05:53] LABS: HGB 6.1 gm/dL (11.4-16.0)
[2018-05-11 05:54] LABS: HCT 17.3 % (34.0-46.0)
[2018-05-11 06:16] LABS: Basophils % (A) 0 %; Eosinophils # (A) 0.2 k/uL (0-0.7); Eosinophils % (A) 2 %; Lymphocytes % (A) 10 %; MCH 31.6 pg (25.0-35.0); MCHC 34.8 g/dL (31.0-37.0); MCV 90.6 fL (80.0-100.0); Mean Platelet Volume 6.9; Monocytes # (A) 0.6 k/uL (0-1.0); Monocytes % (A) 6 %; Neutrophils % (A) 81 %; Platelet Count 174 k/uL (150-450); RBC 1.94 m/uL (3.80-5.40); RDW 15.4 % (11.5-15.5); WBC 9.9 k/uL (3.8-10.6)
[2018-05-11 06:18] LABS: HCT 17.6 % (34.0-46.0); HGB 6.1 gm/dL (11.4-16.0)
[2018-05-11 06:27] LABS: Calcium 7.1 mg/dL (8.4-10.2)
[2018-05-11 06:40] LABS: Glucose,Whole Blood 95 mg/dL (75-99)
[2018-05-11 06:56] LABS: Potassium 3.6 mmol/L (3.5-5.1)
--- NOTE | 2018-05-11 07:28 | XR ---
EXAMINATION TYPE: XR chest 1V DATE OF EXAM: 05/11/2018 COMPARISON: 05/10/2018 HISTORY: SOB, Follow Up FINDINGS: Indwelling tubes and catheters are unchanged. No change in left opacities. Stable appearance of the cardio-mediastinal structures at this time. IMPRESSION: 1. Stable portable chest. Clinical correlation and follow up until resolution is recommended.
[2018-05-11 07:32] LABS: ABG Base Excess -7.2 mmol/L; ABG HCO3 18 mmol/L (21-25); ABG Oxygen Saturation 99.6 % (94-97); ABG PCO2 33 mmHg (35-45); ABG PH 7.35 (7.35-7.45); ABG PO2 124 mmHg (83-108); ABG TCO2 19 mmol/L (19-24)
[2018-05-11] MEDS: PROPOFOL 1,000 MG in EMPTY BAG 1 BAG IV SCH ×2 (08:33→17:28)
[2018-05-11] MEDS: ATENOLOL 25 MG TAB PO SCH (08:34)
[2018-05-11] MEDS: FAMOTIDINE 20 MG TAB PO SCH (08:34)
[2018-05-11] MEDS: ASPIRIN 81 MG PO SCH (08:34)
[2018-05-11] MEDS: CHLORHEXIDINE GLUCONATE 15 ML CUP MUCOUS MEM SCH ×2 (08:34→21:30)
[2018-05-11] MEDS: POTASSIUM BICARBONATE/CIT AC 20 MEQ TABLET.EFF NG-TUBE SCH (08:34)
[2018-05-11] MEDS: CLOPIDOGREL 75 MG TAB PO SCH (08:34)
[2018-05-11] MEDS: LOSARTAN-HCTZ 50-12.5 MG 1 EACH TAB PO SCH (08:35)
[2018-05-11] MEDS: PRAMIPEXOLE 0.25 MG TAB PO SCH ×2 (08:35→21:30)
[2018-05-11] MEDS: SERTRALINE 50 MG TAB PO SCH (08:35)
[2018-05-11] MEDS: MEMANTINE 10 MG TAB PO SCH ×2 (08:35→21:30)
[2018-05-11] MEDS ORDERED: LOSARTAN-HCTZ 50-12.5 MG 1 EACH TAB PO SCH (09:00)
--- NOTE | 2018-05-11 09:54 | PN ---
PROGRESS NOTE Mrs. Dowling is a 78-year-old female who presented recently with an acute inferior myocardial infarction, underwent stenting of the right coronary artery by Dr. Marie. She has a history of bladder CA and started to have severe gross hematuria, underwent surgical intervention by Dr. Blount 2 days ago. She remains intubated and sedated. Hemodynamically stable. Her urine output is stable. She has no evidence of tachycardia or bradycardia. She is on no pressors. She continues to be on aspirin 81 mg daily, atenolol 25 mg daily, Lipitor 80 mg daily, Plavix 75 mg daily, losartan HCT 100-25 mg daily. PHYSICAL EXAMINATION: Blood pressure 119/40 with a heart rate in the 60s. LUNGS: Clear anteriorly. HEART: Regular rate and rhythm, S1, S2. No S3. No rub appreciated. ABDOMEN: Soft. Positive bowel sounds. Extremities: No significant edema. LAB DATA: Lab data revealed a hemoglobin down to 6.1, BUN and creatinine 24 and 1.22. Her sodium is up to 120. IMPRESSION: 1. Status post bladder surgery for bladder carcinoma. 2. Status post closure of bladder rupture. 3. Status post recent myocardial infarction. 4. Hyperlipidemia. RECOMMENDATION: From the cardiac standpoint, I will cut down the dose of her angiotensin receptor isaura. Continue rest of her medical regimen. Depending on her she will be transfused today. The issue of weaning and extubating will be left to Dr. Dsouza. Clinically, she is stable. From the cardiac standpoint, we will continue on the dual antiplatelet treatment as initiated because of a fresh stenting and myocardial infarction. MMODL / IJN: [id number] /
--- NOTE | 2018-05-11 09:56 | P.PN ---
Subjective Progress Note Date: 05/11/18 Principal diagnosis: POD #2, s/p TUR-BT/exploratory laparotomy with closure of bladder rupture. Mrs. Dowling is intubated. She is hemodynamically stable, with hopes that she will be extubated today. Objective - Vital Signs Vital signs: Vital Signs Temp 98.4 F 05/11/18 08:00 Pulse 61 05/11/18 08:00 Resp 16 05/11/18 08:00 BP 83/23 05/10/18 16:00 Pulse Ox 100 05/11/18 08:00 Intake & Output 05/10/18 05/11/18 05/11/18 18:59 06:59 18:59 Intake Total 5053.958 3451.167 26 Output Total 5000 5136 500 Balance 53.958 -1684.833 -474 Weight 86.7 kg 88 kg Intake: IV 4820 3186 26 0.9 1820 120 20 Bladder Irrigation 3000 3000 pressure bag 66 6 Intake, IV Titration 233.958 145.167 Amount Propofol 1,000 mg In 200 100 Empty Bag 1 bag @ Titrate IV .Q0M [facility] Rx#: [id number] fentaNYL (PF) 2,500 mcg 33.958 45.167 In Sodium Chloride 0.9% 200 ml @ 100 MCG/HR 10 mls/hr IV .Q24H [facility] Rx#: [id number] Oral 120 Output: Gastric Drainage 300 500 Urine 4700 4635 500 Stool 1 Other: Voiding Method Indwelling Catheter Indwelling Catheter ABP, PAP, CO, CI - Last Documented Arterial Blood Pressure 105/38 - Constitutional General appearance: Present: average body habitus, no acute distress - Gastrointestinal Gastrointestinal Comment(s): Soft, non-distended. Incision clean and dry. Scant JOSE J drainage. - Labs CBC & Chem 7: 05/11/18 05:57 05/11/18 05:57 Labs: Abnormal Lab Results - Last 24 Hours (Table) 05/09/18 05/10/18 05/10/18 Range/Units 11:11 12:25 14:24 RBC (3.80-5.40) m/uL Hgb (11.4-16.0) gm/dL Hct (34.0-46.0) % Neutrophils # (1.3-7.7) k/uL ABG pCO2 (35-45) mmHg ABG pO2 (83-108) mmHg ABG HCO3 (21-25) mmol/L ABG O2 Saturation (94-97) % Sodium 118 L* (137-145) mmol/L Chloride (98-107) mmol/L Carbon Dioxide (22-30) mmol/L BUN (7-17) mg/dL Creatinine (0.52-1.04) mg/dL POC Glucose (mg/dL) 172 H (75-99) mg/dL Osmolality 247 L* (280-301) mosm/kg Calcium (8.4-10.2) mg/dL Alkaline Phosphatase (38-126) U/L Total Protein (6.3-8.2) g/dL Albumin (3.5-5.0) g/dL Crossmatch See Detail 05/10/18 05/10/18 05/10/18 Range/Units 17:04 21:57 22:00 RBC (3.80-5.40) m/uL Hgb (11.4-16.0) gm/dL Hct (34.0-46.0) % Neutrophils # (1.3-7.7) k/uL ABG pCO2 (35-45) mmHg ABG pO2 (83-108) mmHg ABG HCO3 (21-25) mmol/L ABG O2 Saturation (94-97) % Sodium 118 L* (137-145) mmol/L Chloride (98-107) mmol/L Carbon Dioxide (22-30) mmol/L BUN (7-17) mg/dL Creatinine (0.52-1.04) mg/dL POC Glucose (mg/dL) 121 H 105 H (75-99) mg/dL Osmolality (280-301) mosm/kg Calcium (8.4-10.2) mg/dL Alkaline Phosphatase (38-126) U/L Total Protein (6.3-8.2) g/dL Albumin (3.5-5.0) g/dL Crossmatch 05/10/18 05/11/18 05/11/18 Range/Units 23:51 05:20 05:20 RBC 1.90 L (3.80-5.40) m/uL Hgb 6.1 L* D (11.4-16.0) gm/dL Hct 17.3 L* (34.0-46.0) % Neutrophils # 8.3 H (1.3-7.7) k/uL ABG pCO2 (35-45) mmHg ABG pO2 (83-108) mmHg ABG HCO3 (21-25) mmol/L ABG O2 Saturation (94-97) % Sodium 120 L (137-145) mmol/L Chloride 95 L (98-107) mmol/L Carbon Dioxide 17 L (22-30) mmol/L BUN 24 H (7-17) mg/dL Creatinine 1.20 H (0.52-1.04) mg/dL POC Glucose (mg/dL) 100 H (75-99) mg/dL Osmolality (280-301) mosm/kg Calcium 7.3 L (8.4-10.2) mg/dL Alkaline Phosphatase 34 L (38-126) U/L Total Protein 4.1 L (6.3-8.2) g/dL Albumin 2.1 L (3.5-5.0) g/dL Crossmatch 05/11/18 05/11/18 05/11/18 Range/Units 05:57 05:57 07:29 RBC 1.94 L (3.80-5.40) m/uL Hgb 6.1 L* (11.4-16.0) gm/dL Hct 17.6 L* (34.0-46.0) % Neutrophils # 8.0 H (1.3-7.7) k/uL ABG pCO2 33 L (35-45) mmHg ABG pO2 124 H (83-108) mmHg ABG HCO3 18 L (21-25) mmol/L ABG O2 Saturation 99.6 H (94-97) % Sodium 120 L (137-145) mmol/L Chloride 96 L (98-107) mmol/L Carbon Dioxide 17 L (22-30) mmol/L BUN 24 H (7-17) mg/dL Creatinine 1.22 H (0.52-1.04) mg/dL POC Glucose (mg/dL) (75-99) mg/dL Osmolality (280-301) mosm/kg Calcium 7.1 L (8.4-10.2) mg/dL Alkaline Phosphatase (38-126) U/L Total Protein (6.3-8.2) g/dL Albumin (3.5-5.0) g/dL Crossmatch Microbiology - Last 24 Hours (Table) 05/10/18 00:12 Gram Stain - Preliminary Sputum Sputum Culture - Preliminary Assessment and Plan (1) Gross hematuria Current Visit: Yes Status: Acute Code(s): R31.0 - GROSS HEMATURIA SNOMED Code(s): 669695739 (2) Malignant neoplasm of bladder Current Visit: Yes Status: Acute Code(s): C67.9 - MALIGNANT NEOPLASM OF BLADDER, UNSPECIFIED SNOMED Code(s): 283200046 Plan: Continuous bladder irrigation is running smoothly. The output is clear. JOSE J drainage is scant. She is urologically stable, and in view of this I do not intend to make any changes at this time.
[2018-05-11 10:47] LABS: ABG Base Excess -6.8 mmol/L; ABG HCO3 19 mmol/L (21-25); ABG Oxygen Saturation 98.8 % (94-97); ABG PCO2 35 mmHg (35-45); ABG PH 7.34 (7.35-7.45); ABG PO2 94 mmHg (83-108); ABG TCO2 20 mmol/L (19-24)
[2018-05-11] MEDS: SODIUM CHLORIDE 0.9% IRRIGATIO 3,000 ML IRRIGATION SCH ×2 (12:07→17:25)
[2018-05-11 12:32] LABS: Glucose,Whole Blood 105 mg/dL (75-99)
--- NOTE | 2018-05-11 12:46 | P.NPCON ---
History of Present Illness - Reason for Consult hyponatremia - Chief Complaint Chest pain - History of Present Illness Admitted with STEMI on 05/06/2018 had a cardiac catheterization and was placed on dual antiplatelet therapy. She has history of bladder cancer and follows with [facility]. She had gross hematuria on 04/07/2018 and was you elevated by urology. She has cystoscopy done on 04/08/2018 and was placed on irrigation back for persistent bladder clots and element of bladder perforation. Nephrology was concentrated for hyponatremia. She had baseline sodium of 126 on presentation. No previous sodium labs to compare. Her last sodium in 2014 was 141. Severe during the hospital stay her sodium improved to 1:30 and postoperatively started dropping to 118. She was also getting 0.9 normal saline as well as bladder irrigation at 100 ML's an hour. No nausea vomiting diarrhea. She was she is on ventilator. Her creatinine at baseline is 1.0-1.1 MG per DL. And got worse to 1.2-1.3 during the hospital stay. She got contrast from cardiac cath. No documented episodes of hypotension. No nonsteroidal use. Review of Systems ROS unobtainable: due to mental status Past Medical History Past Medical History: Coronary Artery Disease (CAD), Cancer, Chest Pain / Angina , Dementia, Diabetes Mellitus, Hyperlipidemia, Hypertension, Memory Impairment, Myocardial Infarction (MO), Osteoarthritis (OA) Additional Past Medical History / Comment(s): Restless leg syndrome, Bladder Cancer with Gross hematuria Last Myocardial Infarction Date:: 05/06/18 History of Any Multi-Drug Resistant Organisms: None Reported Past Surgical History: Cholecystectomy, Heart Catheterization With Stent Additional Past Surgical History / Comment(s): Arthroscopic knee surgery left, Left ankle surgery 09/17/2014, Past Anesthesia/Blood Transfusion Reactions: No Reported Reaction Date of Last Stent Placement:: 05/06/18 Smoking Status: Former smoker - Past Family History Father Family Medical History: Dementia Mother Family Medical History: Cancer (Pancreas) Sister(s) Family Medical History: Cancer (Lung cancer) Brother(s) Family Medical History: No Reported History Son(s) Family Medical History: No Reported History (Healthy) Medications and Allergies Home Medications Medication Instructions Recorded Confirmed Type Atenolol [Tenormin] 25 mg PO DAILY 09/17/14 05/06/18 History Insulin Glargine,Hum.rec.anlog 55 unit SQ DAILY 09/17/14 05/06/18 History [Lantus Solostar] Losartan/Hydrochlorothiazide 1 tab PO DAILY 09/17/14 05/06/18 History [Hyzaar 100-25 Tablet] Pravastatin Sodium [Pravachol] 40 mg PO HS 09/17/14 05/06/18 History Famotidine [Pepcid] 20 mg PO BID 05/06/18 05/06/18 History Ginkgo Biloba [place] Extract [Ginkgo] 60 mg PO BID 05/06/18 05/06/18 History Memantine [Namenda] 10 mg PO BID 05/06/18 05/06/18 History Pramipexole [Mirapex] 0.125 mg PO DAILY PRN 05/06/18 05/06/18 History Sertraline [Zoloft] 50 mg PO DAILY 05/06/18 05/06/18 History Turmeric Root Extract [Turmeric] 500 mg PO DAILY 05/06/18 05/06/18 History Ubidecarenone [Co Q-10] 200 mg PO DAILY 05/06/18 05/06/18 History Allergies Allergy/AdvReac Type Severity Reaction Status Date / Time Penicillins AdvReac Mild Unknown Verified 05/06/18 16:12 Physical Exam Vitals: Vital Signs Temp Pulse Resp BP Pulse Ox 05/11/18 12:00 98.7 F 65 16 98 05/11/18 11:12 98.7 F 66 17 120/39 05/11/18 11:00 72 16 98 05/11/18 10:00 70 18 94 L 05/11/18 09:00 64 18 100 05/11/18 08:00 98.4 F 61 16 100 05/11/18 07:00 63 14 100 05/11/18 06:00 57 L 16 100 05/11/18 05:00 58 L 16 100 05/11/18 04:00 97.5 F L 58 L 17 100 05/11/18 03:00 60 16 100 05/11/18 02:00 57 L 16 100 05/11/18 01:00 57 L 16 100 05/11/18 00:00 56 L 16 100 05/10/18 23:26 16 05/10/18 23:22 56 L 16 100 05/10/18 23:00 58 L 16 100 05/10/18 22:00 58 L 16 100 05/10/18 21:00 57 L 18 100 05/10/18 20:00 97.6 F 63 16 100 05/10/18 19:00 59 L 17 100 05/10/18 18:30 58 L 16 100 05/10/18 18:00 57 L 16 100 05/10/18 17:30 57 L 18 100 05/10/18 17:00 59 L 16 100 05/10/18 16:30 59 L 16 100 05/10/18 16:00 97.4 F L 60 16 83/23 100 05/10/18 15:30 58 L 16 100 05/10/18 15:00 59 L 16 100 05/10/18 14:30 60 16 100 05/10/18 14:00 60 16 100 05/10/18 13:30 60 16 100 05/10/18 13:00 61 16 100 Intake and Output 05/10/18 05/11/18 05/11/18 22:59 06:59 14:59 Intake Total 118.493 6528 3447.779 Output Total 4125 2911 1860 Balance -3651.938 718 6377.779 Intake: IV 260 3146 3078 0.9 260 80 60 Bladder Irrigation 3000 3000 pressure bag 66 18 Intake, IV Titration 93.167 100 59.779 Amount Propofol 1,000 mg In 48 100 3.696 Empty Bag 1 bag @ Titrate IV .Q0M [facility] Rx#: [id number] fentaNYL (PF) 2,500 mcg 45.167 56.083 In Sodium Chloride 0.9% 200 ml @ 100 MCG/HR 10 mls/hr IV .Q24H [facility] Rx#: [id number] Oral 120 Blood Product 310 Rc As-1 Unit 0 [id number] Output: Gastric Drainage 500 Urine 3625 2910 1860 Stool 1 Other: Voiding Method Indwelling Catheter Indwelling Catheter Indwelling Catheter Weight 86.7 kg 88 kg ABP, PAP, CO, CI - Last 8 Hours Arterial Blood Pressure 119/40 Arterial Blood Pressure 145/47 Arterial Blood Pressure 132/43 Arterial Blood Pressure 142/46 Arterial Blood Pressure 105/38 Arterial Blood Pressure 119/42 Arterial Blood Pressure 97/34 Arterial Blood Pressure 98/35 No acute distress S1-S2 heard Oral intubation No edema Pleitez catheter Results - Lab Results Most recent lab results ABG pH 7.34 (7.35-7.45) L 05/11/18 10:44 ABG pCO2 35 mmHg (35-45) 05/11/18 10:44 ABG pO2 94 mmHg (83-108) 05/11/18 10:44 ABG HCO3 19 mmol/L (21-25) L 05/11/18 10:44 ABG O2 Saturation 98.8 % (94-97) H 05/11/18 10:44 Calcium 7.1 mg/dL (8.4-10.2) L 05/11/18 05:57 Phosphorus 4.8 mg/dL (2.5-4.5) H 05/10/18 04:26 Magnesium 0.9 mg/dL (1.6-2.3) L* 05/10/18 04:26 05/11/18 05:57 05/11/18 05:57 Assessment and Plan Assessment: #1 acute on chronic hypotonic hyponatremia secondary to fluid retention from bladder irrigation. 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 #2 STEMI #3 acute kidney injury post-cath creatinine improving. #4 Vent-dependent respiratory failure #5 bladder cancer with hematuria status post cystoscopy. Plan: #1 IV fluids stopped yesterday. Irrigation rate also has been decreased. #2 sodium improved to 120 today. Monitor BMP every 6. If still low will give a dose of tall wrapped and in the morning. #3 Zoloft can precipitate SIADH. Will stop Zoloft. Thank you very much for this consult.
--- NOTE | 2018-05-11 13:21 | P.PN ---
Subjective Progress Note Date: 05/11/18 Principal diagnosis: Postoperative hypoxic respiratory failure This is a 78-year-old female who was initially admitted on 05/06/2018, and she presented mostly with chest pain. 10 was left-sided, radiating to her shoulder , and was at least an hour and a half in duration prior to arrival to the ER. Patient was seen by cardiology on consultation, and she was felt to have acute inferior ST elevation myocardial infarction. Patient underwent PCI of mid right coronary artery. Her other medical problems including diabetes hypertension and dyslipidemia. On 05/08/2018, patient was seen by urology for hematuria which developed apparently after she had the right coronary artery angioplasty with stent placement. Patient was having gross hematuria, and apparently the patient had a known history of T1 grade 3 urothelial carcinoma early this year. She underwent resection followed by instillation of intravesicular BCG. However recently she was found to have muscle invasion and she was referred to [facility] for a second opinion. The intent was to proceed with conservative management radiation plus minus chemotherapy however a computed tomography scan at [facility] suggested more disease and the patient elected to undergo radical cystectomy. Since the patient sustained myocardial infarction on May 06 and underwent right coronary artery angioplasty with stent placement, she developed hematuria, and Dr. Blount evaluated the patient. And the patient underwent cystoscopy, evacuation of clots, transurethral resection of bladder tumor expiratory laparotomy and closure of bladder laceration. Postoperatively patient was sent to the ICU on mechanical ventilation, and her ventilator settings are tidal volume of 450 assist-control rate of 16 FiO2 of 45% and PEEP of 5. Her blood pressure was marginal, and the patient required norepinephrine overnight. After I evaluated the patient, I recommended his right femoral triple-lumen catheter placement. And I recommended more fluids to be given, she was given the fluid boluses of 0.9 normal saline, and her chest x-ray was reviewed was noted to be clear. Patient was noted to be quite agitated on mechanical ventilation restless, and her propofol dose was readjusted. Patient was reevaluated today on 05/11/2018, remains on mechanical ventilation, and her ventilator settings are assist control rate of 16 tidal volume 450 FiO2 40% and PEEP is 5. ABG showed a pO2 of 94 pCO2 of 35 pH of 7.34. Chest x-ray showed no evidence of congestive heart failure, no evidence of infiltrates. Indwelling tubes and catheters are unchanged. Small left pleural effusion and atelectasis is suspected. Hemoglobin however is 6.1 today, and I have written for a unit of packed RBCs to be transfused today. Patient is not requiring any pressors. I discontinued her propofol, and I have checked her weaning parameters, seems to be extremely poor, patient has a weak respiratory effort, her tidal volumes are small, vital capacity is low, andnif is -14. Hence I felt that the patient could not be weaned at least at this point, needs to be kept on mechanical ventilation today, and we'll address weaning trials on a daily basis. Sodium remains low at 120 BUN is 24 creatinine 1.2, and the patient has a picture of metabolic acidosis being addressed by nephrology on the case. Objective - Vital Signs Vital signs: Vital Signs Temp 98.7 F 05/11/18 12:00 Pulse 65 05/11/18 12:00 Resp 16 05/11/18 12:00 BP 120/39 05/11/18 11:12 Pulse Ox 98 05/11/18 12:00 Intake & Output 05/10/18 05/11/18 05/11/18 18:59 06:59 18:59 Intake Total 5053.958 3451.167 3447.779 Output Total 5000 5136 1860 Balance 53.958 -9425.470 3260.779 Weight 86.7 kg 88 kg Intake: IV 4820 3186 3078 0.9 1820 120 60 Bladder Irrigation 3000 3000 3000 pressure bag 66 18 Intake, IV Titration 233.958 145.167 59.779 Amount Propofol 1,000 mg In 200 100 3.696 Empty Bag 1 bag @ Titrate IV .Q0M [facility] Rx#: [id number] fentaNYL (PF) 2,500 mcg 33.958 45.167 56.083 In Sodium Chloride 0.9% 200 ml @ 100 MCG/HR 10 mls/hr IV .Q24H [facility] Rx#: [id number] Oral 120 Blood Product 310 Rc As-1 Unit 0 [id number] Output: Gastric Drainage 300 500 Urine 4700 4635 1860 Stool 1 Other: Voiding Method Indwelling Catheter Indwelling Catheter Indwelling Catheter ABP, PAP, CO, CI - Last Documented Arterial Blood Pressure 119/40 - Exam Physical Exam: Revealed a 78-year-old female on propofol, on mechanical ventilation, calm, in no distress. Head: Atraumatic, normocephalic. HEENT:[Neck is supple.] [No neck masses.] [No thyromegaly.] [No JVD.] Endotracheal tube is intact. Moist mucous membranes noted. Orogastric tube is intact. Chest: [Clear throughout, no crackles, no rhonchi, no wheezes.] Cardiac Exam: [Normal S1 and S2, no S3 gallop, no murmur.] Abdomen: [Soft, nontender, no megaly, no rebound, no guarding, normal bowel sounds.] Bladder tubes were noted, and the patient is receiving bladder irrigation continuously. Extremities: [No clubbing, no edema, no cyanosis.] Neurological Exam: Arousable, follows simple instructions. Psychiatric: Cannot be assessed, patient is intubated and sedated. Skin: No rashes. - Labs CBC & Chem 7: 05/11/18 05:57 05/11/18 05:57 Labs: Abnormal Lab Results - Last 24 Hours (Table) 05/09/18 05/10/18 05/10/18 Range/Units 11:11 14:24 17:04 RBC (3.80-5.40) m/uL Hgb (11.4-16.0) gm/dL Hct (34.0-46.0) % Neutrophils # (1.3-7.7) k/uL ABG pH (7.35-7.45) ABG pCO2 (35-45) mmHg ABG pO2 (83-108) mmHg ABG HCO3 (21-25) mmol/L ABG O2 Saturation (94-97) % Sodium 118 L* (137-145) mmol/L Chloride (98-107) mmol/L Carbon Dioxide (22-30) mmol/L BUN (7-17) mg/dL Creatinine (0.52-1.04) mg/dL POC Glucose (mg/dL) 121 H (75-99) mg/dL Osmolality 247 L* (280-301) mosm/kg Calcium (8.4-10.2) mg/dL Alkaline Phosphatase (38-126) U/L Total Protein (6.3-8.2) g/dL Albumin (3.5-5.0) g/dL Crossmatch See Detail 05/10/18 05/10/18 05/10/18 Range/Units 21:57 22:00 23:51 RBC (3.80-5.40) m/uL Hgb (11.4-16.0) gm/dL Hct (34.0-46.0) % Neutrophils # (1.3-7.7) k/uL ABG pH (7.35-7.45) ABG pCO2 (35-45) mmHg ABG pO2 (83-108) mmHg ABG HCO3 (21-25) mmol/L ABG O2 Saturation (94-97) % Sodium 118 L* (137-145) mmol/L Chloride (98-107) mmol/L Carbon Dioxide (22-30) mmol/L BUN (7-17) mg/dL Creatinine (0.52-1.04) mg/dL POC Glucose (mg/dL) 105 H 100 H (75-99) mg/dL Osmolality (280-301) mosm/kg Calcium (8.4-10.2) mg/dL Alkaline Phosphatase (38-126) U/L Total Protein (6.3-8.2) g/dL Albumin (3.5-5.0) g/dL Crossmatch 05/11/18 05/11/18 05/11/18 Range/Units 05:20 05:20 05:57 RBC 1.90 L 1.94 L (3.80-5.40) m/uL Hgb 6.1 L* D 6.1 L* (11.4-16.0) gm/dL Hct 17.3 L* 17.6 L* (34.0-46.0) % Neutrophils # 8.3 H 8.0 H (1.3-7.7) k/uL ABG pH (7.35-7.45) ABG pCO2 (35-45) mmHg ABG pO2 (83-108) mmHg ABG HCO3 (21-25) mmol/L ABG O2 Saturation (94-97) % Sodium 120 L (137-145) mmol/L Chloride 95 L (98-107) mmol/L Carbon Dioxide 17 L (22-30) mmol/L BUN 24 H (7-17) mg/dL Creatinine 1.20 H (0.52-1.04) mg/dL POC Glucose (mg/dL) (75-99) mg/dL Osmolality (280-301) mosm/kg Calcium 7.3 L (8.4-10.2) mg/dL Alkaline Phosphatase 34 L (38-126) U/L Total Protein 4.1 L (6.3-8.2) g/dL Albumin 2.1 L (3.5-5.0) g/dL Crossmatch 05/11/18 05/11/18 05/11/18 Range/Units 05:57 07:29 10:44 RBC (3.80-5.40) m/uL Hgb (11.4-16.0) gm/dL Hct (34.0-46.0) % Neutrophils # (1.3-7.7) k/uL ABG pH 7.34 L (7.35-7.45) ABG pCO2 33 L (35-45) mmHg ABG pO2 124 H (83-108) mmHg ABG HCO3 18 L 19 L (21-25) mmol/L ABG O2 Saturation 99.6 H 98.8 H (94-97) % Sodium 120 L (137-145) mmol/L Chloride 96 L (98-107) mmol/L Carbon Dioxide 17 L (22-30) mmol/L BUN 24 H (7-17) mg/dL Creatinine 1.22 H (0.52-1.04) mg/dL POC Glucose (mg/dL) (75-99) mg/dL Osmolality (280-301) mosm/kg Calcium 7.1 L (8.4-10.2) mg/dL Alkaline Phosphatase (38-126) U/L Total Protein (6.3-8.2) g/dL Albumin (3.5-5.0) g/dL Crossmatch 05/11/18 Range/Units 12:21 RBC (3.80-5.40) m/uL Hgb (11.4-16.0) gm/dL Hct (34.0-46.0) % Neutrophils # (1.3-7.7) k/uL ABG pH (7.35-7.45) ABG pCO2 (35-45) mmHg ABG pO2 (83-108) mmHg ABG HCO3 (21-25) mmol/L ABG O2 Saturation (94-97) % Sodium (137-145) mmol/L Chloride (98-107) mmol/L Carbon Dioxide (22-30) mmol/L BUN (7-17) mg/dL Creatinine (0.52-1.04) mg/dL POC Glucose (mg/dL) 105 H (75-99) mg/dL Osmolality (280-301) mosm/kg Calcium (8.4-10.2) mg/dL Alkaline Phosphatase (38-126) U/L Total Protein (6.3-8.2) g/dL Albumin (3.5-5.0) g/dL Crossmatch Microbiology - Last 24 Hours (Table) 05/10/18 00:12 Gram Stain - Preliminary Sputum Sputum Culture - Preliminary Assessment and Plan Assessment: Impression: 1 postoperative hypoxic respiratory failure, requiring intubation and mechanical ventilation, not expected. Exact etiology is not clear, could be related to significant pain medication and sedatives given postoperatively. Based on her weaning parameters, patient is not ready for weaning or extubation at this point. Hence I plan to keep her on mechanical ventilation for today, and the address weaning in the next 24 hours. Continue propofol, patient is hemodynamically stable not requiring any norepinephrine. Her sodium is felt to be related to underlying SIADH and worsened by bladder irrigation control bleeding and remove blood clots in the bladder from recent surgery. 2 status post cystoscopy, evacuation of clot, transurethral resection of bladder tumor, exploratory laparotomy and closure of bladder laceration. Postoperative day #2 3 recent acute inferior wall ST elevation myocardial infarction requiring drug eluting stent placement in RCA by Dr. Katz. 4 acute blood loss secondary to hematuria from known bladder cancer. Patient's hemoglobin is low today, I plan to give her a unit of packed RBCs. 5 multiple comorbidities including hypertension, bladder cancer which was recently diagnosed, insomnia, electrolytes imbalance with hyponatremia which is most likely related to bladder irrigation. Chronic kidney disease stage III, Recommendation: Continue present treatment plan, continue ventilatory support, hemodynamic support, continue to monitor sodium levels on a daily basis, hopefully with less irrigation of the bladder, her sodium will come up, and she was placed on fluid restriction the nephrology. Looking back at this lady's previous sodium prior to this admission, has been running low previously even before bladder irrigations. She likely has underlying SIADH from underlying malignancy. We'll start the nutritional support, enteral feeding, continue GI and DVT prophylaxis. Critical care time is 35 minutes Time with Patient: Greater than 30
--- NOTE | 2018-05-11 15:19 | XR ---
EXAMINATION TYPE: XR abdomen 1V DATE OF EXAM: 05/11/2018 3:03 PM CLINICAL HISTORY: Postop ileus. Abdominal pain. TECHNIQUE: Single supine KUB image of the abdomen is obtained. COMPARISON: None. FINDINGS: Enteric tube is seen with its fenestrated portion beyond the gastroesophageal junction, baron ropriately placed. Blunting of the left costophrenic angle relates to a trace pleural effusion and le ft basilar airspace disease, likely atelectasis. Thickening clips are noted. Surgical drain is seen w ithin the pelvis. Surgical julia are left para midline. Right femoral central venous catheter is in cidentally seen. No dilated large or small bowel. Supine imaging limits evaluation for pneumoperitone um. No gross evidence of pneumoperitoneum is present. Osseous structures demonstrate moderate multile renetta degenerative change. Exam is slightly limited by patient body habitus. IMPRESSION: Appropriately placed enteric tube and postsurgical changes of the right upper quadrant an d low abdomen. No evidence of bowel obstruction. Probable trace left pleural effusion.
--- NOTE | 2018-05-11 17:13 | P.PN ---
Subjective Progress Note Date: 05/11/18 This is a 78-year-old pleasant female patient of Dr. Joshua Cerna underlying history of dementia, diabetes mellitus type 2, hypertension, hyperlipidemia, who is currently a very poor historian. Patient provided some limited history that says chest discomfort and left shoulder discomfort, requiring ER evaluation. Patient was resting at that time, she denies any shortness of breath or diaphoresis no nausea or vomiting, no lightheadedness or dizziness, no syncope. EMS was called in, EKG was performed that shows acute ST segment elevation in the inferior leads, and was sent in directly to the cardiac laborer beam house and went for an emergent cardiac cath requiring drug-eluting stent involving the RCA from a 99% stenosis to 0% stenosis post-stenting. Patient was chest pain-free after the procedure, currently now requiring double antiplatelet platelet agents. Patient was last seen by Dr. Lewis 04/08/2018 for diabetic foot [id number] encounter for diabetic shoes Particular history is positive for hematuria on seen by Dr. Martinez and was referred to [facility] Dr. Roberts [phone] for which bladder surgery would be performed in May 2018, for the suspicious mass highly suggestive of malignancy Echocardiogram performed 05/06/2018 normal sinus rhythm, EF 50-55%, basal inferolateral hypokinesia, thickened aortic valve, mild aortic regurgitation, mild TR, mild MR, right ventricular systolic pressure of 16, aortic root size is normal, normal pericardium Cardiac cath report 05/06/2018, Dr. Katz, showed right coronary artery need stenosis from a 99% to 0% using Xience drug-eluting stent 3.0 x 18 mm, through the right radial artery approach. Findings shows RCA distally with mild disease , PDA and PLV branches have mild disease, left main normal, left circumflex complex normal, however there is 30% to 40% occlusive disease after the first OM branch, proximal LAD mild disease, Patient was comfortable when seen in the presence of the son who is POA, full discussion was made regarding the intervention for the STEMI as well as the need to delay the bladder surgery as it would require treatment of the cardiac occlusive disease first and was recommended to have cardiac clearance to be off the double antiplatelet agents prior to the anticipated bladder surgery 05/07: Patient will be transferred out of the intensive care unit today to selective care. She denies having any chest pain or shortness of breath. She does continue to have small amount of bright red blood in her urine but no clots , positive sediment. She has been encouraged to drink a glass of water by her physician in [facility]. Ferrlecit will be ordered. Anticipate possible discharge in next 24-48 hours. 05/08: Patient is resting comfortably up in a chair. She is denying having any chest pain or shortness of breath. Patient continues to have bright red blood in her urine. She had a large amount in the evening with 6-7 large clots and a another episode in the morning without any clots. Recently hemoglobin this morning was 8. Patient was seen by urology a three-way Pleitez catheter was placed in manually irrigated with removal of 1 clots. Continues bladder irrigation will continue with manual irrigation of the catheter as needed. 05/09: This morning, patient has hemoglobin of 6.71 unit packed RBCs will be ordered. Dr. Blount has evaluated with plan for cystoscopy and fulguration today. She had Pleitez catheter placed yesterday for retention and has noted hematuria which has been present since admission. Patient denies any chest pain , no abdominal pain, no lightheadedness. BUN 25 and creatinine 1.23 and sodium 125. Blood sugars have been labile with range of 78-223. Vital signs are stable, afebrile. 05/10: Patient is currently on vent after cystoscopy, transurethral resection of bladder tumor, exploratory laparotomy with closure of bladder laceration. Continuous bladder irrigation into suprapubic tube and throughout the urethral catheter. Shows a return with faint of pink tinged urine. Patient is hemodynamically stable. She appears to be resting comfortably. The CBC 14.4, hemoglobin 7.8, sodium 118, chloride 91. We will obtain osmolarity, sodium level and a urine random sodium. 05/11: Patient continues to be on vent after cystoscopy, transurethral resection of bladder tumor, exploratory laparotomy with closure of bladder laceration. Continuous bladder irrigation into the super pubic tube and throughout the urethral catheter continues at a slower rate. The return still has a faint pink tinged urine. Patient continues to be hemodynamically stable. She appears to be resting comfortably. Nephrology consult completed IV fluids have been stopped. Sodium has improved to 120. We will stop the Zoloft follow nephrology's recommendations. Patient has not had any bowel movements and a small amount of output from her NG tube. We will obtain an abdominal x- ray. Review of systems: Unable to obtain patient is intubated and on a vent . Objective - Vital Signs Vital signs: Vital Signs Temp 98.9 F 05/11/18 13:35 Pulse 68 05/11/18 17:00 Resp 13 05/11/18 17:00 BP 103/37 05/11/18 13:35 Pulse Ox 100 05/11/18 17:00 Intake & Output 05/10/18 05/11/18 05/11/18 18:59 06:59 18:59 Intake Total 5053.958 3451.167 3841.259 Output Total 5000 5136 4010 Balance 53.958 -1684.833 -168.741 Weight 86.7 kg 88 kg Intake: IV 4820 3186 3143 0.9 1820 120 110 Bladder Irrigation 3000 3000 3000 pressure bag 66 33 Intake, IV Titration 233.958 145.167 78.259 Amount Propofol 1,000 mg In 200 100 22.176 Empty Bag 1 bag @ Titrate IV .Q0M [facility] Rx#: [id number] fentaNYL (PF) 2,500 mcg 33.958 45.167 56.083 In Sodium Chloride 0.9% 200 ml @ 100 MCG/HR 10 mls/hr IV .Q24H [facility] Rx#: [id number] Oral 120 Blood Product 620 Rc As-1 Unit 310 [id number] Output: Gastric Drainage 300 500 Urine 4700 4635 4010 Stool 1 Other: Voiding Method Indwelling Catheter Indwelling Catheter Indwelling Catheter ABP, PAP, CO, CI - Last Documented Arterial Blood Pressure 108/36 - Constitutional General appearance: Present: average body habitus, no acute distress - EENT Eyes: Present: anicteric sclerae, EOMI, PERRLA - Neck Neck: Absent: lymphadenopathy - Respiratory Respiratory: bilateral: CTA, negative: diminished, dullness, rales, rhonchi, wheezing - Cardiovascular Rhythm: regular Heart sounds: normal: S1, S2 Abnormal Heart Sounds: Absent: systolic murmur, diastolic murmur, rub, S3 Gallop , S4 Gallop, click, other - Gastrointestinal General gastrointestinal: Present: decreased bowel sounds, soft. Absent: organomegaly, tenderness - Integumentary Integumentary: Present: decreased turgor, pale - Neurologic Neurologic Comment(s): Patient is intubated and unable to assess - Musculoskeletal Musculoskeletal Comment(s): She was intubated unable to assess - Psychiatric Psychiatric Comment(s): Patient is intubated unable to us assess - Labs CBC & Chem 7: 05/11/18 05:57 05/11/18 05:57 Labs: Abnormal Lab Results - Last 24 Hours (Table) 05/09/18 05/10/18 05/10/18 Range/Units 11:11 17:04 21:57 RBC (3.80-5.40) m/uL Hgb (11.4-16.0) gm/dL Hct (34.0-46.0) % Neutrophils # (1.3-7.7) k/uL ABG pH (7.35-7.45) ABG pCO2 (35-45) mmHg ABG pO2 (83-108) mmHg ABG HCO3 (21-25) mmol/L ABG O2 Saturation (94-97) % Sodium (137-145) mmol/L Chloride (98-107) mmol/L Carbon Dioxide (22-30) mmol/L BUN (7-17) mg/dL Creatinine (0.52-1.04) mg/dL POC Glucose (mg/dL) 121 H 105 H (75-99) mg/dL Calcium (8.4-10.2) mg/dL Alkaline Phosphatase (38-126) U/L Total Protein (6.3-8.2) g/dL Albumin (3.5-5.0) g/dL Crossmatch See Detail 05/10/18 05/10/18 05/11/18 Range/Units 22:00 23:51 05:20 RBC 1.90 L (3.80-5.40) m/uL Hgb 6.1 L* D (11.4-16.0) gm/dL Hct 17.3 L* (34.0-46.0) % Neutrophils # 8.3 H (1.3-7.7) k/uL ABG pH (7.35-7.45) ABG pCO2 (35-45) mmHg ABG pO2 (83-108) mmHg ABG HCO3 (21-25) mmol/L ABG O2 Saturation (94-97) % Sodium 118 L* (137-145) mmol/L Chloride (98-107) mmol/L Carbon Dioxide (22-30) mmol/L BUN (7-17) mg/dL Creatinine (0.52-1.04) mg/dL POC Glucose (mg/dL) 100 H (75-99) mg/dL Calcium (8.4-10.2) mg/dL Alkaline Phosphatase (38-126) U/L Total Protein (6.3-8.2) g/dL Albumin (3.5-5.0) g/dL Crossmatch 05/11/18 05/11/18 05/11/18 Range/Units 05:20 05:57 05:57 RBC 1.94 L (3.80-5.40) m/uL Hgb 6.1 L* (11.4-16.0) gm/dL Hct 17.6 L* (34.0-46.0) % Neutrophils # 8.0 H (1.3-7.7) k/uL ABG pH (7.35-7.45) ABG pCO2 (35-45) mmHg ABG pO2 (83-108) mmHg ABG HCO3 (21-25) mmol/L ABG O2 Saturation (94-97) % Sodium 120 L 120 L (137-145) mmol/L Chloride 95 L 96 L (98-107) mmol/L Carbon Dioxide 17 L 17 L (22-30) mmol/L BUN 24 H 24 H (7-17) mg/dL Creatinine 1.20 H 1.22 H (0.52-1.04) mg/dL POC Glucose (mg/dL) (75-99) mg/dL Calcium 7.3 L 7.1 L (8.4-10.2) mg/dL Alkaline Phosphatase 34 L (38-126) U/L Total Protein 4.1 L (6.3-8.2) g/dL Albumin 2.1 L (3.5-5.0) g/dL Crossmatch 05/11/18 05/11/18 05/11/18 Range/Units 07:29 10:44 12:21 RBC (3.80-5.40) m/uL Hgb (11.4-16.0) gm/dL Hct (34.0-46.0) % Neutrophils # (1.3-7.7) k/uL ABG pH 7.34 L (7.35-7.45) ABG pCO2 33 L (35-45) mmHg ABG pO2 124 H (83-108) mmHg ABG HCO3 18 L 19 L (21-25) mmol/L ABG O2 Saturation 99.6 H 98.8 H (94-97) % Sodium (137-145) mmol/L Chloride (98-107) mmol/L Carbon Dioxide (22-30) mmol/L BUN (7-17) mg/dL Creatinine (0.52-1.04) mg/dL POC Glucose (mg/dL) 105 H (75-99) mg/dL Calcium (8.4-10.2) mg/dL Alkaline Phosphatase (38-126) U/L Total Protein (6.3-8.2) g/dL Albumin (3.5-5.0) g/dL Crossmatch Microbiology - Last 24 Hours (Table) 05/10/18 00:12 Gram Stain - Preliminary Sputum Sputum Culture - Preliminary Assessment and Plan Plan: 1. Acute inferior wall STEMI involving RCA requiring drug-eluting stent to 99% of stenosis down to 0% successful stenting, performed 05/06/2018 Dr. Marie patient currently is on Lipitor 80 mg daily,, Tenormin 25 mg daily, Plavix 75 mg daily aspirin 81 mg daily 2. Diabetes mellitus type 2 requiring NovoLog, Lantus 55 units daily, NovoLog scale, hemoglobin A1c is 7.0 3. Bladder cancer newly diagnosed presenting with cross hematuria, [facility] is anticipating bladder surgery around May 2018, Dr. Roberts, urologist . Monitor H&H as the patient is on double antiplatelet agents, the surgery needs to be delayed until both antiplatelet agents would be safely discontinued anticipate delay of surgery for at least 6 months however cardiology will decide sooner than that if required. Dr. Blount consult appreciated. Cystoscopy, evacuation of clot, transverse resection of bladder tumor, exploratory laparotomy with closure of bladder laceration performed. Continuous bladder irrigation through suprapubic and urethra catheters. 4. Hypertensive Vascular disease on [id number] one daily no changes made 5. 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 Neurocognitive deficits with memory loss, on Namenda 10 mg PAD, patient is not on any anticholinesterase medication. 7. Insomnia, hospital medication utilized for sleep was Ambien when necessary, we will schedule melatonin 6 mg at bedtime, Beer's criteria for medication safety using hypnotic sedative agents will be used very cautiously and will be avoided as much as possible in terms of Ambien use 8. GI prophylaxis with Pepcid 9 DVT prophylaxis, high risk known bladder cancer, with SCDs and patient currently ON IV heparin 10 Chronic blood loss anemia hemoglobin is 9.0, iron studies will be done 11 CK D stage III, unknown baseline, creatinine at 1.05, nephrotoxins will be avoided, 12 Hyponatremia acute, possibly nutritional evaluation, consult nephrology. urine osmolarity, repeat sodium, serum osmolarity 13 Hypomagnesemia, replacement with monitoring 14 Mild metabolic acidosis, and is not on metformin prior to admission, continue fluids for hydration 15 Restless leg, on Mirapex 0.125 mg daily when necessary, iron studies to be obtained mite replacement 16. Possible postoperative ileus related to decreased bowel sounds and decreased NG tube output, abdominal x-ray Discharge plan: Undetermined. Impression and plan of care have been directed as dictated by the signing physician. Edelmira Zee nurse practitioner acting as scribe for signing physician.
[2018-05-11 17:24] LABS: Basophils % (A) 0 %; Eosinophils # (A) 0.2 k/uL (0-0.7); Eosinophils % (A) 1 %; HCT 20.7 % (34.0-46.0); HGB 7.3 gm/dL (11.4-16.0); Lymphocytes # (A) 0.8 k/uL (1.0-4.8); Lymphocytes % (A) 7 %; MCH 30.9 pg (25.0-35.0); MCHC 35.3 g/dL (31.0-37.0); MCV 87.7 fL (80.0-100.0); Mean Platelet Volume 6.6; Monocytes # (A) 0.6 k/uL (0-1.0); Monocytes % (A) 5 %; Neutrophils # (A) 10.2 k/uL (1.3-7.7); Neutrophils % (A) 86 %; Platelet Count 176 k/uL (150-450); RBC 2.37 m/uL (3.80-5.40); RDW 15.1 % (11.5-15.5); WBC 11.9 k/uL (3.8-10.6)
[2018-05-11 17:26] LABS: Glucose,Whole Blood 97 mg/dL (75-99)
[2018-05-11] MEDS: ATORVASTATIN 80 MG TAB PO SCH (21:30)
[2018-05-11] MEDS: MELATONIN 3 MG TABLET PO SCH (21:30)
[2018-05-11] MEDS: INSULIN DETEMIR 100 UNIT/ML 10 ML VIAL SQ SCH (21:31)
[2018-05-11] MEDS: CLEVIDIPINE BUTYRATE 25 MG in EMPTY BAG 1 BAG IV SCH (21:43)
[2018-05-12 00:30] LABS: Glucose,Whole Blood 97 mg/dL (75-99)
[2018-05-12] MEDS: PROPOFOL 1,000 MG in EMPTY BAG 1 BAG IV SCH ×2 (00:40→07:30)
[2018-05-12] MEDS: fentaNYL (PF) 2,500 MCG in SODIUM CHLORIDE 0.9% 200 ML IV SCH (02:18)
[2018-05-12] MEDS: INSULIN ASPART 100 UNIT/ML 1 ML 10 ML VIAL SQ SCH ×5 (02:20→23:39)
[2018-05-12] MEDS: SODIUM CHLORIDE 0.9% IRRIGATIO 3,000 ML IRRIGATION SCH ×2 (04:32→14:21)
[2018-05-12 04:48] LABS: ABG HCO3 20 mmol/L (21-25); ABG PCO2 31 mmHg (35-45); ABG PH 7.41 (7.35-7.45); ABG PO2 160 mmHg (83-108); ABG TCO2 21 mmol/L (19-24)
[2018-05-12 05:39] LABS: HCT 20.7 % (34.0-46.0); HGB 7.2 gm/dL (11.4-16.0); MCH 31.2 pg (25.0-35.0); MCHC 34.9 g/dL (31.0-37.0); MCV 89.2 fL (80.0-100.0); Mean Platelet Volume 6.7; Platelet Count 197 k/uL (150-450); RBC 2.32 m/uL (3.80-5.40); RDW 15.4 % (11.5-15.5); WBC 11.4 k/uL (3.8-10.6)
[2018-05-12 05:46] LABS: Calcium 7.8 mg/dL (8.4-10.2); Potassium 3.7 mmol/L (3.5-5.1)
[2018-05-12] MEDS ORDERED: Potassium Replacement Protocol 1 EACH MISC MISCELLANE PRN (06:45)
[2018-05-12] MEDS: POTASSIUM BICARBONATE/CIT AC 20 MEQ TABLET.EFF NG-TUBE SCH (06:53)
[2018-05-12] MEDS ORDERED: POTASSIUM BICARBONATE/CIT AC 20 MEQ TABLET.EFF NG-TUBE SCH (07:00)
--- NOTE | 2018-05-12 07:15 | P.PN ---
Subjective Progress Note Date: 05/12/18 The patient is stable they are trying to extubate her Her urine is clear with a slow cbi The drainage is minimal I will speak with radiation oncology about radiation to her bladder for th cancer Objective - Vital Signs Vital signs: Vital Signs Temp 97.6 F 05/12/18 06:00 Pulse 66 05/12/18 06:00 Resp 22 05/12/18 06:00 BP 100/34 05/12/18 06:00 Pulse Ox 100 05/12/18 06:00 Intake & Output 05/11/18 05/12/18 05/12/18 18:59 06:59 18:59 Intake Total 3925.011 331.25 Output Total 4510 3928 Balance -584.989 -3596.75 Weight 83 kg Intake: IV 3156 156 0.9 120 120 Bladder Irrigation 3000 pressure bag 36 36 Intake, IV Titration 149.011 175.25 Amount Propofol 1,000 mg In 92.928 100 Empty Bag 1 bag @ Titrate IV .Q0M [facility] Rx#: [id number] fentaNYL (PF) 2,500 mcg 56.083 75.25 In Sodium Chloride 0.9% 200 ml @ 100 MCG/HR 10 mls/hr IV .Q24H [facility] Rx#: [id number] Blood Product 620 Rc As-1 Unit 310 [id number] Output: Urine 4510 3925 Stool 3 Other: Voiding Method Indwelling Catheter Indwelling Catheter ABP, PAP, CO, CI - Last Documented Arterial Blood Pressure 112/37 - Labs CBC & Chem 7: 05/12/18 05:00 05/12/18 05:00 Labs: Abnormal Lab Results - Last 24 Hours (Table) 05/09/18 05/11/18 05/11/18 Range/Units 11:11 07:29 10:44 WBC (3.8-10.6) k/uL RBC (3.80-5.40) m/uL Hgb (11.4-16.0) gm/dL Hct (34.0-46.0) % Neutrophils # (1.3-7.7) k/uL Lymphocytes # (1.0-4.8) k/uL ABG pH 7.34 L (7.35-7.45) ABG pCO2 33 L (35-45) mmHg ABG pO2 124 H (83-108) mmHg ABG HCO3 18 L 19 L (21-25) mmol/L ABG O2 Saturation 99.6 H 98.8 H (94-97) % Sodium (137-145) mmol/L Chloride (98-107) mmol/L Carbon Dioxide (22-30) mmol/L BUN (7-17) mg/dL Creatinine (0.52-1.04) mg/dL POC Glucose (mg/dL) (75-99) mg/dL Calcium (8.4-10.2) mg/dL Crossmatch See Detail 05/11/18 05/11/18 05/11/18 Range/Units 12:21 17:15 17:15 WBC 11.9 H (3.8-10.6) k/uL RBC 2.37 L (3.80-5.40) m/uL Hgb 7.3 L (11.4-16.0) gm/dL Hct 20.7 L (34.0-46.0) % Neutrophils # 10.2 H (1.3-7.7) k/uL Lymphocytes # 0.8 L (1.0-4.8) k/uL ABG pH (7.35-7.45) ABG pCO2 (35-45) mmHg ABG pO2 (83-108) mmHg ABG HCO3 (21-25) mmol/L ABG O2 Saturation (94-97) % Sodium 121 L (137-145) mmol/L Chloride (98-107) mmol/L Carbon Dioxide (22-30) mmol/L BUN (7-17) mg/dL Creatinine (0.52-1.04) mg/dL POC Glucose (mg/dL) 105 H (75-99) mg/dL Calcium (8.4-10.2) mg/dL Crossmatch 05/12/18 05/12/18 05/12/18 Range/Units 04:43 05:00 05:00 WBC 11.4 H (3.8-10.6) k/uL RBC 2.32 L (3.80-5.40) m/uL Hgb 7.2 L (11.4-16.0) gm/dL Hct 20.7 L (34.0-46.0) % Neutrophils # (1.3-7.7) k/uL Lymphocytes # (1.0-4.8) k/uL ABG pH (7.35-7.45) ABG pCO2 31 L (35-45) mmHg ABG pO2 160 H (83-108) mmHg ABG HCO3 20 L (21-25) mmol/L ABG O2 Saturation 100.0 H (94-97) % Sodium 124 L (137-145) mmol/L Chloride 97 L (98-107) mmol/L Carbon Dioxide 19 L (22-30) mmol/L BUN 21 H (7-17) mg/dL Creatinine 1.11 H (0.52-1.04) mg/dL POC Glucose (mg/dL) (75-99) mg/dL Calcium 7.8 L (8.4-10.2) mg/dL Crossmatch Microbiology - Last 24 Hours (Table) 05/11/18 20:12 Gram Stain - Preliminary Sputum Sputum Culture - Preliminary
[2018-05-12] MEDS: CHLORHEXIDINE GLUCONATE 15 ML CUP MUCOUS MEM SCH (07:56)
[2018-05-12] MEDS: FAMOTIDINE 20 MG TAB PO SCH (07:57)
[2018-05-12] MEDS: MEMANTINE 10 MG TAB PO SCH ×2 (07:58→21:39)
[2018-05-12] MEDS: PRAMIPEXOLE 0.25 MG TAB PO SCH ×2 (07:58→21:39)
--- NOTE | 2018-05-12 08:18 | XR ---
EXAMINATION TYPE: XR chest 1V DATE OF EXAM: 05/12/2018 COMPARISON: 05/11/2018 HISTORY: 78-year-old female ICU follow up, vented TECHNIQUE: Single frontal view of the chest is obtained. FINDINGS: Heart remains upper limits of normal in size. At this chronic arch calcifications. Mild interstitial prominence. Some increasing strandy right basilar opacity. Continued left basilar retrocardiac densit y. IMPRESSION: Continued small left pleural effusion with adjacent left basilar atelectasis and/or consolidation. So me patchy infiltrate/atelectasis at the right base is new.
[2018-05-12] MEDS: ASPIRIN 81 MG PO SCH (08:41)
[2018-05-12] MEDS: CLOPIDOGREL 75 MG TAB PO SCH (08:41)
[2018-05-12] MEDS: ATENOLOL 25 MG TAB PO SCH (08:41)
--- NOTE | 2018-05-12 08:50 | P.PN ---
Subjective Progress Note Date: 05/12/18 This is a 78-year-old female with history of acute inferior wall microinfarction who had stent placement the right coronary artery. Subsequently she underwent bladder surgery for bladder CA associated with a severe hematuria. Since surgery. Patient has been intubated. Patient also developed problems with hyponatremia. She is anemic with hemoglobin of 7.1. Her blood pressure is running on the low side. We'll go discontinue Hyzaar. We 'll continue beta isaura as tolerated. She will also continue aspirin and Plavix because she had a stent recently. Apparently attempts are being made to extubate her today if possible. From cardiac standpoint, we'll continue current medical therapy Objective - Vital Signs Vital signs: Vital Signs Temp 97.6 F 05/12/18 06:00 Pulse 66 05/12/18 08:00 Resp 17 05/12/18 08:00 BP 90/35 05/12/18 08:00 Pulse Ox 100 05/12/18 08:00 Intake & Output 05/11/18 05/12/18 05/12/18 18:59 06:59 18:59 Intake Total 3925.011 331.25 126 Output Total 4510 3928 990 Balance -584.989 -3596.75 -864 Weight 83 kg Intake: IV 3156 156 26 0.9 120 120 20 Bladder Irrigation 3000 pressure bag 36 36 6 Intake, IV Titration 149.011 175.25 100 Amount Propofol 1,000 mg In 92.928 100 100 Empty Bag 1 bag @ Titrate IV .Q0M [facility] Rx#: [id number] fentaNYL (PF) 2,500 mcg 56.083 75.25 In Sodium Chloride 0.9% 200 ml @ 100 MCG/HR 10 mls/hr IV .Q24H [facility] Rx#: [id number] Blood Product 620 Rc As-1 Unit 310 [id number] Output: Urine 4510 3925 990 Stool 3 Other: Voiding Method Indwelling Catheter Indwelling Catheter ABP, PAP, CO, CI - Last Documented Arterial Blood Pressure 112/37 - Exam GENERAL EXAM: Patient is intubated HEENT: Normocephalic. Normal reaction of pupils, equal size, normal range of extraocular motion. No erythema or exudates in the throat. NECK: No masses, no nuchal rigidity. CHEST: No chest wall deformity. LUNGS:. We will initiate a change HEART: [S1 and S2 normal with no audible mumurs or gallops. Regular rhythm, femorals equal on both sides..] ABDOMEN: Soft SKIN: No rashes CENTRAL NERVOUS SYSTEM: Unresponsive EXTREMITIES: [No cyanosis, clubbing or edema.] - Labs CBC & Chem 7: 05/12/18 05:00 05/12/18 05:00 Labs: Abnormal Lab Results - Last 24 Hours (Table) 05/09/18 05/11/18 05/11/18 Range/Units 11:11 10:44 12:21 WBC (3.8-10.6) k/uL RBC (3.80-5.40) m/uL Hgb (11.4-16.0) gm/dL Hct (34.0-46.0) % Neutrophils # (1.3-7.7) k/uL Lymphocytes # (1.0-4.8) k/uL ABG pH 7.34 L (7.35-7.45) ABG pCO2 (35-45) mmHg ABG pO2 (83-108) mmHg ABG HCO3 19 L (21-25) mmol/L ABG O2 Saturation 98.8 H (94-97) % Sodium (137-145) mmol/L Chloride (98-107) mmol/L Carbon Dioxide (22-30) mmol/L BUN (7-17) mg/dL Creatinine (0.52-1.04) mg/dL POC Glucose (mg/dL) 105 H (75-99) mg/dL Calcium (8.4-10.2) mg/dL Crossmatch See Detail 05/11/18 05/11/18 05/12/18 Range/Units 17:15 17:15 04:43 WBC 11.9 H (3.8-10.6) k/uL RBC 2.37 L (3.80-5.40) m/uL Hgb 7.3 L (11.4-16.0) gm/dL Hct 20.7 L (34.0-46.0) % Neutrophils # 10.2 H (1.3-7.7) k/uL Lymphocytes # 0.8 L (1.0-4.8) k/uL ABG pH (7.35-7.45) ABG pCO2 31 L (35-45) mmHg ABG pO2 160 H (83-108) mmHg ABG HCO3 20 L (21-25) mmol/L ABG O2 Saturation 100.0 H (94-97) % Sodium 121 L (137-145) mmol/L Chloride (98-107) mmol/L Carbon Dioxide (22-30) mmol/L BUN (7-17) mg/dL Creatinine (0.52-1.04) mg/dL POC Glucose (mg/dL) (75-99) mg/dL Calcium (8.4-10.2) mg/dL Crossmatch 05/12/18 05/12/18 Range/Units 05:00 05:00 WBC 11.4 H (3.8-10.6) k/uL RBC 2.32 L (3.80-5.40) m/uL Hgb 7.2 L (11.4-16.0) gm/dL Hct 20.7 L (34.0-46.0) % Neutrophils # (1.3-7.7) k/uL Lymphocytes # (1.0-4.8) k/uL ABG pH (7.35-7.45) ABG pCO2 (35-45) mmHg ABG pO2 (83-108) mmHg ABG HCO3 (21-25) mmol/L ABG O2 Saturation (94-97) % Sodium 124 L (137-145) mmol/L Chloride 97 L (98-107) mmol/L Carbon Dioxide 19 L (22-30) mmol/L BUN 21 H (7-17) mg/dL Creatinine 1.11 H (0.52-1.04) mg/dL POC Glucose (mg/dL) (75-99) mg/dL Calcium 7.8 L (8.4-10.2) mg/dL Crossmatch Microbiology - Last 24 Hours (Table) 05/11/18 20:12 Gram Stain - Preliminary Sputum Sputum Culture - Preliminary Assessment and Plan (1) Hyponatremia Current Visit: Yes Status: Acute Code(s): E87.1 - HYPO-OSMOLALITY AND HYPONATREMIA SNOMED Code(s): 12655265 (2) Malignant neoplasm of bladder Current Visit: Yes Status: Acute Code(s): C67.9 - MALIGNANT NEOPLASM OF BLADDER, UNSPECIFIED SNOMED Code(s): 475762611 (3) ST elevation myocardial infarction (STEMI) Current Visit: Yes Status: Acute Code(s): I21.3 - ST ELEVATION (STEMI) MYOCARDIAL INFARCTION OF UNSP SITE SNOMED Code(s): 817935043 (4) Bladder cancer Current Visit: Yes Status: Acute Code(s): C67.9 - MALIGNANT NEOPLASM OF BLADDER, UNSPECIFIED SNOMED Code(s): 148283811 Plan: We will continue current medical therapy. Hyzaar is being discontinued. Beta isaura as tolerated. We'll continue aspirin and Plavix.
--- NOTE | 2018-05-12 09:22 | P.PN ---
Subjective Patient is seen in follow-up for acute kidney injury and hyponatremia. Sodium level is improving and is up to 124 this morning. Patient has history of bladder cancer and is status post TUR-BT with exploratory laparotomy on May 09. She also had a myocardial infarction and had a stent placed to the RCA on May 06. She is nonoliguric. Creatinine is down to 1.11 today. Vital signs are stable. General: The patient appeared well nourished and normally developed. HEENT: Head exam is unremarkable. Neck is without jugular venous distension. LUNGS: Breath sounds decreased. HEART: Rate and Rhythm are regular. First and second heart sounds normal. No murmurs, rubs or gallops. ABDOMEN: Abdominal exam reveals normal bowel sounds. Non-tender and non- distended. No evidence of peritonitis. EXTREMITITES: No clubbing, cyanosis, or edema. Objective - Vital Signs Vital signs: Vital Signs Temp 97.6 F 05/12/18 06:00 Pulse 66 05/12/18 08:00 Resp 17 05/12/18 08:00 BP 90/35 05/12/18 08:00 Pulse Ox 100 05/12/18 08:00 Intake & Output 05/11/18 05/12/18 05/12/18 18:59 06:59 18:59 Intake Total 3925.011 331.25 126 Output Total 4510 3928 1170 Balance -584.989 -3596.75 -1044 Weight 83 kg Intake: IV 3156 156 26 0.9 120 120 20 Bladder Irrigation 3000 pressure bag 36 36 6 Intake, IV Titration 149.011 175.25 100 Amount Propofol 1,000 mg In 92.928 100 100 Empty Bag 1 bag @ Titrate IV .Q0M [facility] Rx#: [id number] fentaNYL (PF) 2,500 mcg 56.083 75.25 In Sodium Chloride 0.9% 200 ml @ 100 MCG/HR 10 mls/hr IV .Q24H [facility] Rx#: [id number] Blood Product 620 Rc As-1 Unit 310 [id number] Output: Urine 4510 3925 1170 Stool 3 Other: Voiding Method Indwelling Catheter Indwelling Catheter ABP, PAP, CO, CI - Last Documented Arterial Blood Pressure 112/37 - Labs CBC & Chem 7: 05/12/18 05:00 05/12/18 05:00 Labs: Abnormal Lab Results - Last 24 Hours (Table) 05/09/18 05/11/18 05/11/18 Range/Units 11:11 10:44 12:21 WBC (3.8-10.6) k/uL RBC (3.80-5.40) m/uL Hgb (11.4-16.0) gm/dL Hct (34.0-46.0) % Neutrophils # (1.3-7.7) k/uL Lymphocytes # (1.0-4.8) k/uL ABG pH 7.34 L (7.35-7.45) ABG pCO2 (35-45) mmHg ABG pO2 (83-108) mmHg ABG HCO3 19 L (21-25) mmol/L ABG O2 Saturation 98.8 H (94-97) % Sodium (137-145) mmol/L Chloride (98-107) mmol/L Carbon Dioxide (22-30) mmol/L BUN (7-17) mg/dL Creatinine (0.52-1.04) mg/dL POC Glucose (mg/dL) 105 H (75-99) mg/dL Calcium (8.4-10.2) mg/dL Crossmatch See Detail 05/11/18 05/11/18 05/12/18 Range/Units 17:15 17:15 04:43 WBC 11.9 H (3.8-10.6) k/uL RBC 2.37 L (3.80-5.40) m/uL Hgb 7.3 L (11.4-16.0) gm/dL Hct 20.7 L (34.0-46.0) % Neutrophils # 10.2 H (1.3-7.7) k/uL Lymphocytes # 0.8 L (1.0-4.8) k/uL ABG pH (7.35-7.45) ABG pCO2 31 L (35-45) mmHg ABG pO2 160 H (83-108) mmHg ABG HCO3 20 L (21-25) mmol/L ABG O2 Saturation 100.0 H (94-97) % Sodium 121 L (137-145) mmol/L Chloride (98-107) mmol/L Carbon Dioxide (22-30) mmol/L BUN (7-17) mg/dL Creatinine (0.52-1.04) mg/dL POC Glucose (mg/dL) (75-99) mg/dL Calcium (8.4-10.2) mg/dL Crossmatch 05/12/18 05/12/18 Range/Units 05:00 05:00 WBC 11.4 H (3.8-10.6) k/uL RBC 2.32 L (3.80-5.40) m/uL Hgb 7.2 L (11.4-16.0) gm/dL Hct 20.7 L (34.0-46.0) % Neutrophils # (1.3-7.7) k/uL Lymphocytes # (1.0-4.8) k/uL ABG pH (7.35-7.45) ABG pCO2 (35-45) mmHg ABG pO2 (83-108) mmHg ABG HCO3 (21-25) mmol/L ABG O2 Saturation (94-97) % Sodium 124 L (137-145) mmol/L Chloride 97 L (98-107) mmol/L Carbon Dioxide 19 L (22-30) mmol/L BUN 21 H (7-17) mg/dL Creatinine 1.11 H (0.52-1.04) mg/dL POC Glucose (mg/dL) (75-99) mg/dL Calcium 7.8 L (8.4-10.2) mg/dL Crossmatch Microbiology - Last 24 Hours (Table) 05/11/18 20:12 Gram Stain - Preliminary Sputum Sputum Culture - Preliminary Assessment and Plan Plan: Assessment: 1. Hyponatremia secondary to large volume bladder irrigation as well as Hyzaar. Improving. 2. STEMI status post cardiac catheterization with a stent to the RCA on May 14. 3. Bladder cancer status post TUR-BT with exploratory laparotomy and closure of bladder rupture on May 09. 4. Metabolic acidosis secondary to acute kidney injury and IV fluids. Better. 5. Diabetes mellitus. 6. Acute kidney injury secondary to ATN secondary to hemodynamic instability and contrast-induced nephropathy. Creatinine down to 1.11 today. Plan: Repeat sodium level this afternoon. Remains off all IV fluids. Hold Hyzaar for now.
--- NOTE | 2018-05-12 10:03 | P.PN ---
Subjective Progress Note Date: 05/12/18 Principal diagnosis: ST elevation myocardial infarction, respiratory failure, multiple surgical procedures Progress note dated 05/12/2018 This is a 78-year-old female was admitted back on May [address] segment elevation myocardial infarction. She went to the catheterization laboratory and a stent placed in the right coronary artery. She was intubated on May 09 having had to go to the operating room. The patient underwent a cystoscopy, evacuation of blood clots from the bladder, transurethral resection of the urethra, bladder tumor evaluation, exploratory laparotomy She is postop day #3. The patient remains on the mechanical ventilator in the volume assist control mode rate is 16, tidal volume 450, FiO2 40% which can be turned down to 30% PEEP of 5. Arterial blood gases show a PaO2 of 160, a PaCO2 31 and a pH of 7.41. The patient's currently on propofol, and 35 mcg/kg/m, fentanyl drip at 50 mics per hour saline at 10 mL an hour. Note feeds as yet. The patient will have a daily eruption of sedation and a spontaneous breathing trial this morning. Yesterday, she apparently did 2 hours on PSV and CPAP. The nurse feels that she might be ready for extubation. Chest x-ray shows a small left pleural effusion and some left basilar atelectasis or infiltrate as well as some minimal infiltrate or atelectasis at the right lung base. Microbiologic studies are negative. Objective - Vital Signs Vital signs: Vital Signs Temp 97.6 F 05/12/18 06:00 Pulse 66 05/12/18 08:00 Resp 17 05/12/18 08:00 BP 90/35 05/12/18 08:00 Pulse Ox 100 05/12/18 08:00 Intake & Output 05/11/18 05/12/18 05/12/18 18:59 06:59 18:59 Intake Total 3925.011 331.25 126 Output Total 4510 3928 1170 Balance -584.989 -3596.75 -1044 Weight 83 kg Intake: IV 3156 156 26 0.9 120 120 20 Bladder Irrigation 3000 pressure bag 36 36 6 Intake, IV Titration 149.011 175.25 100 Amount Propofol 1,000 mg In 92.928 100 100 Empty Bag 1 bag @ Titrate IV .Q0M [facility] Rx#: [id number] fentaNYL (PF) 2,500 mcg 56.083 75.25 In Sodium Chloride 0.9% 200 ml @ 100 MCG/HR 10 mls/hr IV .Q24H [facility] Rx#: [id number] Blood Product 620 Rc As-1 Unit 310 [id number] Output: Urine 4510 3925 1170 Stool 3 Other: Voiding Method Indwelling Catheter Indwelling Catheter ABP, PAP, CO, CI - Last Documented Arterial Blood Pressure 112/37 - Exam No acute distress, sedated, orally placed endotracheal tube and NG tube in place. HEENT examination is grossly unremarkable. Mucous membranes are moist. Neck supple. Full range of motion. No adenopathy thyromegaly or neck vein distention. Cardiovascular examination reveals regular rhythm rate. S1-S2 normal. No S3 or S4. No discernible murmur noted. Heart sounds are distant. Lungs reveal coarse bilateral rhonchi. Breath sounds are diminished. This some crackles at the bases. Breath sounds equal bilaterally. No wheezes appreciated. Abdomen is relatively soft without bowel sounds. Extremities are intact. No cyanosis clubbing or edema. Skin is without rash or lesion. Neurologic examination could not be adequately assessed. - Labs CBC & Chem 7: 05/12/18 05:00 05/12/18 05:00 Labs: Abnormal Lab Results - Last 24 Hours (Table) 05/09/18 05/11/18 05/11/18 Range/Units 11:11 10:44 12:21 WBC (3.8-10.6) k/uL RBC (3.80-5.40) m/uL Hgb (11.4-16.0) gm/dL Hct (34.0-46.0) % Neutrophils # (1.3-7.7) k/uL Lymphocytes # (1.0-4.8) k/uL ABG pH 7.34 L (7.35-7.45) ABG pCO2 (35-45) mmHg ABG pO2 (83-108) mmHg ABG HCO3 19 L (21-25) mmol/L ABG O2 Saturation 98.8 H (94-97) % Sodium (137-145) mmol/L Chloride (98-107) mmol/L Carbon Dioxide (22-30) mmol/L BUN (7-17) mg/dL Creatinine (0.52-1.04) mg/dL POC Glucose (mg/dL) 105 H (75-99) mg/dL Calcium (8.4-10.2) mg/dL Crossmatch See Detail 05/11/18 05/11/18 05/12/18 Range/Units 17:15 17:15 04:43 WBC 11.9 H (3.8-10.6) k/uL RBC 2.37 L (3.80-5.40) m/uL Hgb 7.3 L (11.4-16.0) gm/dL Hct 20.7 L (34.0-46.0) % Neutrophils # 10.2 H (1.3-7.7) k/uL Lymphocytes # 0.8 L (1.0-4.8) k/uL ABG pH (7.35-7.45) ABG pCO2 31 L (35-45) mmHg ABG pO2 160 H (83-108) mmHg ABG HCO3 20 L (21-25) mmol/L ABG O2 Saturation 100.0 H (94-97) % Sodium 121 L (137-145) mmol/L Chloride (98-107) mmol/L Carbon Dioxide (22-30) mmol/L BUN (7-17) mg/dL Creatinine (0.52-1.04) mg/dL POC Glucose (mg/dL) (75-99) mg/dL Calcium (8.4-10.2) mg/dL Crossmatch 05/12/18 05/12/18 Range/Units 05:00 05:00 WBC 11.4 H (3.8-10.6) k/uL RBC 2.32 L (3.80-5.40) m/uL Hgb 7.2 L (11.4-16.0) gm/dL Hct 20.7 L (34.0-46.0) % Neutrophils # (1.3-7.7) k/uL Lymphocytes # (1.0-4.8) k/uL ABG pH (7.35-7.45) ABG pCO2 (35-45) mmHg ABG pO2 (83-108) mmHg ABG HCO3 (21-25) mmol/L ABG O2 Saturation (94-97) % Sodium 124 L (137-145) mmol/L Chloride 97 L (98-107) mmol/L Carbon Dioxide 19 L (22-30) mmol/L BUN 21 H (7-17) mg/dL Creatinine 1.11 H (0.52-1.04) mg/dL POC Glucose (mg/dL) (75-99) mg/dL Calcium 7.8 L (8.4-10.2) mg/dL Crossmatch Microbiology - Last 24 Hours (Table) 05/11/18 20:12 Gram Stain - Preliminary Sputum Sputum Culture - Preliminary Assessment and Plan Assessment: Assessment Postop day #3, status post cystoscopy, evacuation of clots, TUR, an exploratory laparotomy, with continued and ongoing intubation and mechanical ventilation which began on May 09, the day of surgery. Routine postoperative ventilator management. Status post ST segment elevation myocardial infarction, stent to the RCA Recent acute inferior wall ST segment elevation myocardial infarction Acute blood loss secondary to hematuria from known bladder cancer History of hypertension History of insomnia Hyponatremia Stage III chronic kidney disease Plan: Plan dated 05/12/2018 I've asked the nurses to stop the propofol and fentanyl and give the patient a daily eruption of sedation with a spontaneous breathing trial. Apparently yesterday, she did reasonably well. We will drop the FiO2 down from 40-30%. Chest x-ray and blood gases are reviewed. Microbiologic studies thus far negative. White count 11.4, hemoglobin 7.2, hematocrit 20.7 and platelet count 197,000. Sodium 124 potassium 3.7 chloride is 97 CO2 19 and anion gap is 8 BUN 21 creatinine 1.11. Chest x-ray, labs and all medications are reviewed. I'm hopeful that we can move this patient towards extubation. Additional recommendations and suggestions are forthcoming. Critical care time 35 minutes Time with Patient: Greater than 30
[2018-05-12 10:10] LABS: Phosphorus 4.3 mg/dL (2.5-4.5)
[2018-05-12 12:11] LABS: Glucose,Whole Blood 94 mg/dL (75-99)
--- NOTE | 2018-05-12 15:02 | P.PN ---
Subjective Progress Note Date: 05/12/18 This is a 78-year-old pleasant female patient of Dr. Joshua Cerna underlying history of dementia, diabetes mellitus type 2, hypertension, hyperlipidemia, who is currently a very poor historian. Patient provided some limited history that says chest discomfort and left shoulder discomfort, requiring ER evaluation. Patient was resting at that time, she denies any shortness of breath or diaphoresis no nausea or vomiting, no lightheadedness or dizziness, no syncope. EMS was called in, EKG was performed that shows acute ST segment elevation in the inferior leads, and was sent in directly to the cardiac confectionery laboratory manager and went for an emergent cardiac cath requiring drug-eluting stent involving the RCA from a 99% stenosis to 0% stenosis post-stenting. Patient was chest pain-free after the procedure, currently now requiring double antiplatelet platelet agents. Patient was last seen by Dr. Lewis 04/08/2018 for diabetic foot [id number]-[id number] encounter for diabetic shoes Particular history is positive for hematuria on seen by Dr. Martinez and was referred to [facility] Dr. Roberts [phone] for which bladder surgery would be performed in May 2018, for the suspicious mass highly suggestive of malignancy Echocardiogram performed 05/06/2018 normal sinus rhythm, EF 50-55%, basal inferolateral hypokinesia, thickened aortic valve, mild aortic regurgitation, mild TR, mild MR, right ventricular systolic pressure of 16, aortic root size is normal, normal pericardium Cardiac cath report 05/06/2018, Dr. Katz, showed right coronary artery need stenosis from a 99% to 0% using Xience drug-eluting stent 3.0 x 18 mm, through the right radial artery approach. Findings shows RCA distally with mild disease , PDA and PLV branches have mild disease, left main normal, left circumflex complex normal, however there is 30% to 40% occlusive disease after the first OM branch, proximal LAD mild disease, Patient was comfortable when seen in the presence of the son who is POA, full discussion was made regarding the intervention for the STEMI as well as the need to delay the bladder surgery as it would require treatment of the cardiac occlusive disease first and was recommended to have cardiac clearance to be off the double antiplatelet agents prior to the anticipated bladder surgery 05/07: Patient will be transferred out of the intensive care unit today to selective care. She denies having any chest pain or shortness of breath. She does continue to have small amount of bright red blood in her urine but no clots , positive sediment. She has been encouraged to drink a glass of water by her physician in [facility]. Ferrlecit will be ordered. Anticipate possible discharge in next 24-48 hours. 05/08: Patient is resting comfortably up in a chair. She is denying having any chest pain or shortness of breath. Patient continues to have bright red blood in her urine. She had a large amount in the evening with 6-7 large clots and a another episode in the morning without any clots. Recently hemoglobin this morning was 8. Patient was seen by urology a three-way Pleitez catheter was placed in manually irrigated with removal of 1 clots. Continues bladder irrigation will continue with manual irrigation of the catheter as needed. 05/09: This morning, patient has hemoglobin of 6.71 unit packed RBCs will be ordered. Dr. Blount has evaluated with plan for cystoscopy and fulguration today. She had Pleitez catheter placed yesterday for retention and has noted hematuria which has been present since admission. Patient denies any chest pain , no abdominal pain, no lightheadedness. BUN 25 and creatinine 1.23 and sodium 125. Blood sugars have been labile with range of 78-223. Vital signs are stable, afebrile. 05/10: Patient is currently on vent after cystoscopy, transurethral resection of bladder tumor, exploratory laparotomy with closure of bladder laceration. Continuous bladder irrigation into suprapubic tube and throughout the urethral catheter. Shows a return with faint of pink tinged urine. Patient is hemodynamically stable. She appears to be resting comfortably. The CBC 14.4, hemoglobin 7.8, sodium 118, chloride 91. We will obtain osmolarity, sodium level and a urine random sodium. 05/11: Patient continues to be on vent after cystoscopy, transurethral resection of bladder tumor, exploratory laparotomy with closure of bladder laceration. Continuous bladder irrigation into the super pubic tube and throughout the urethral catheter continues at a slower rate. The return still has a faint pink tinged urine. Patient continues to be hemodynamically stable. She appears to be resting comfortably. Nephrology consult completed IV fluids have been stopped. Sodium has improved to 120. We will stop the Zoloft follow nephrology's recommendations. Patient has not had any bowel movements and a small amount of output from her NG tube. We will obtain an abdominal x- ray. 05/12: Patient remains intubated and on mechanical ventilation. She is off sedation and not currently following directions well. Possible extubation today. She is able to nod that she is not having any pain. She has been afebrile and vital signs are stable. White count is 11.4 and hemoglobin 7.2, sodium is improved to 124, BUN 21 and creatinine 1.11. Patient is followed by multiple consultants. Review of systems: Unable to obtain patient is intubated and on a vent Objective - Vital Signs Vital signs: Vital Signs Temp 97.9 F 05/12/18 09:00 Pulse 73 05/12/18 11:00 Resp 23 05/12/18 11:00 BP 116/57 05/12/18 11:00 Pulse Ox 100 05/12/18 11:00 Intake & Output 05/11/18 05/12/18 05/12/18 18:59 06:59 18:59 Intake Total 3925.011 331.25 238.522 Output Total 4510 3928 1885 Balance -584.989 -3596.75 -1646.478 Weight 83 kg Intake: IV 3156 156 56 0.9 normal saline 120 120 50 Bladder Irrigation 3000 pressure bag 36 36 6 Intake, IV Titration 149.011 175.25 182.522 Amount Propofol 1,000 mg In 92.928 100 140.421 Empty Bag 1 bag @ Titrate IV .Q0M [facility] Rx#: [id number] fentaNYL (PF) 2,500 mcg 56.083 75.25 42.101 In Sodium Chloride 0.9% 200 ml @ 100 MCG/HR 10 mls/hr IV .Q24H [facility] Rx#: [id number] Blood Product 620 Rc As-1 Unit 310 [id number] Output: Urine 4510 3925 1885 Stool 3 Other: Voiding Method Indwelling Catheter Indwelling Catheter Indwelling Catheter ABP, PAP, CO, CI - Last Documented Arterial Blood Pressure 112/37 - Exam General appearance: cooperative, no acute distress. Patient is intubated and on mechanical ventilation. - EENT Eyes: anicteric sclerae, EOMI, PERRLA, dentition normal, normal appearance ENT: hearing grossly normal, NA/AT, normal oropharynx - Neck Neck: normal ROM - Respiratory Respiratory: bilateral: CTA, negative: diminished, dullness, rales - Cardiovascular Rhythm: regular Heart sounds: normal: S1, S2 Abnormal Heart Sounds: systolic murmur - Gastrointestinal General gastrointestinal: normal bowel sounds, tenderness (None), Pleitez catheter draining bloody urine. - Integumentary Integumentary: normal, normal turgor - Neurologic Neurologic: CNII-XII intact - Musculoskeletal Musculoskeletal: gait normal, strength equal bilaterally - Psychiatric Psychiatric: no A&O x's 3, no appropriate affect, no intact judgment & insight - Labs CBC & Chem 7: 05/12/18 05:00 05/12/18 05:00 Labs: Abnormal Lab Results - Last 24 Hours (Table) 05/09/18 05/11/18 05/11/18 Range/Units 11:11 12:21 17:15 WBC (3.8-10.6) k/uL RBC (3.80-5.40) m/uL Hgb (11.4-16.0) gm/dL Hct (34.0-46.0) % Neutrophils # (1.3-7.7) k/uL Lymphocytes # (1.0-4.8) k/uL ABG pCO2 (35-45) mmHg ABG pO2 (83-108) mmHg ABG HCO3 (21-25) mmol/L ABG O2 Saturation (94-97) % Sodium 121 L (137-145) mmol/L Chloride (98-107) mmol/L Carbon Dioxide (22-30) mmol/L BUN (7-17) mg/dL Creatinine (0.52-1.04) mg/dL POC Glucose (mg/dL) 105 H (75-99) mg/dL Calcium (8.4-10.2) mg/dL Crossmatch See Detail 05/11/18 05/12/18 05/12/18 Range/Units 17:15 04:43 05:00 WBC 11.9 H (3.8-10.6) k/uL RBC 2.37 L (3.80-5.40) m/uL Hgb 7.3 L (11.4-16.0) gm/dL Hct 20.7 L (34.0-46.0) % Neutrophils # 10.2 H (1.3-7.7) k/uL Lymphocytes # 0.8 L (1.0-4.8) k/uL ABG pCO2 31 L (35-45) mmHg ABG pO2 160 H (83-108) mmHg ABG HCO3 20 L (21-25) mmol/L ABG O2 Saturation 100.0 H (94-97) % Sodium 124 L (137-145) mmol/L Chloride 97 L (98-107) mmol/L Carbon Dioxide 19 L (22-30) mmol/L BUN 21 H (7-17) mg/dL Creatinine 1.11 H (0.52-1.04) mg/dL POC Glucose (mg/dL) (75-99) mg/dL Calcium 7.8 L (8.4-10.2) mg/dL Crossmatch 05/12/18 Range/Units 05:00 WBC 11.4 H (3.8-10.6) k/uL RBC 2.32 L (3.80-5.40) m/uL Hgb 7.2 L (11.4-16.0) gm/dL Hct 20.7 L (34.0-46.0) % Neutrophils # (1.3-7.7) k/uL Lymphocytes # (1.0-4.8) k/uL ABG pCO2 (35-45) mmHg ABG pO2 (83-108) mmHg ABG HCO3 (21-25) mmol/L ABG O2 Saturation (94-97) % Sodium (137-145) mmol/L Chloride (98-107) mmol/L Carbon Dioxide (22-30) mmol/L BUN (7-17) mg/dL Creatinine (0.52-1.04) mg/dL POC Glucose (mg/dL) (75-99) mg/dL Calcium (8.4-10.2) mg/dL Crossmatch Microbiology - Last 24 Hours (Table) 05/10/18 00:12 Gram Stain - Final Sputum Sputum Culture - Final 05/11/18 20:12 Gram Stain - Preliminary Sputum Sputum Culture - Preliminary Assessment and Plan Plan: 1. Acute inferior wall STEMI involving RCA requiring drug-eluting stent to 99% of stenosis down to 0% successful stenting, performed 05/06/2018 Dr. Marie patient currently is on Lipitor 80 mg daily, Tenormin 25 mg daily, Plavix 75 mg daily aspirin 81 mg daily 2. Diabetes mellitus type 2 requiring NovoLog, Lantus 25 units daily, NovoLog scale, hemoglobin A1c is 7.0 3. Bladder cancer newly diagnosed presenting with cross hematuria, [facility] is anticipating bladder surgery around May 2018, Dr. Roberts, urologist. Dr. Blount consult appreciated. Cystoscopy, evacuation of clot , transverse resection of bladder tumor, exploratory laparotomy with closure of bladder laceration performed. Continuous bladder irrigation through suprapubic and urethra catheters. 4. Hypertensive Vascular disease. Continue atenolol. 5. Dysthymia, Zoloft 50 mg daily 6. Neurocognitive deficits with memory loss, on Namenda 10 mg PAD, patient is not on any anticholinesterase medication. 7. Insomnia, schedule melatonin 6 mg at bedtime. 8. GI prophylaxis with Pepcid 9. DVT prophylaxis, high risk known bladder cancer, with SCDs and patient currently ON IV heparin 10. Chronic blood loss anemia hemoglobin is 9.0, iron studies will be done 11. Acute kidney injury secondary to ATN secondary to hemodynamic instability and contrast-induced nephropathy with CKD stage III nephrotoxins will be avoided , consult with nephrology appreciated 12. Hyponatremia acute, secondary to large volume bladder irrigation and Hyzaar. Hyzaar was discontinued. Nephrology consult appreciated. 13. Hypomagnesemia, replacement with monitoring 14. Mild metabolic acidosis, and is not on metformin prior to admission, continue fluids for hydration 15. Restless leg, on Mirapex 0.125 mg daily when necessary, iron studies to be obtained mite replacement 16. Possible postoperative ileus related to decreased bowel sounds and decreased NG tube output, abdominal x-ray Discharge plan: To be determined. Impression and plan of care have been directed as dictated by the signing physician. Kylah Begum nurse practitioner acting as scribe for signing physician.
[2018-05-12] MEDS ORDERED: HYDROmorphone 1 MG/ML 1 ML SYRINGE IVP PRN ×2 (15:14)
[2018-05-12 18:29] LABS: Glucose,Whole Blood 100 mg/dL (75-99)
[2018-05-12] MEDS ORDERED: INSULIN DETEMIR 100 UNIT/ML 10 ML VIAL SQ SCH (21:00)
[2018-05-12] MEDS: MELATONIN 3 MG TABLET PO SCH (21:38)
[2018-05-12] MEDS: ATORVASTATIN 80 MG TAB PO SCH (21:38)
[2018-05-12 21:54] LABS: Glucose,Whole Blood 103 mg/dL (75-99)
[2018-05-12 23:58] LABS: Glucose,Whole Blood 89 mg/dL (75-99)
[2018-05-13 04:41] LABS: Basophils % (A) 0 %; Eosinophils # (A) 0.1 k/uL (0-0.7); Eosinophils % (A) 1 %; Lymphocytes # (A) 0.6 k/uL (1.0-4.8); Lymphocytes % (A) 6 %; MCHC 34.4 g/dL (31.0-37.0); Mean Platelet Volume 6.7; Monocytes # (A) 0.6 k/uL (0-1.0); Monocytes % (A) 6 %; Neutrophils # (A) 8.5 k/uL (1.3-7.7); Neutrophils % (A) 86 %; Platelet Count 231 k/uL (150-450); RDW 15.3 % (11.5-15.5); WBC 9.9 k/uL (3.8-10.6)
[2018-05-13 04:45] LABS: HCT 18.9 % (34.0-46.0); HGB 6.5 gm/dL (11.4-16.0)
[2018-05-13 04:47] LABS: Calcium 7.7 mg/dL (8.4-10.2); Magnesium 1.8 mg/dL (1.6-2.3); Potassium 3.8 mmol/L (3.5-5.1)
[2018-05-13] MEDS ORDERED: Magnesium Replacement Protocol 1 EACH MISC MISCELLANE PRN (05:02)
[2018-05-13] MEDS ORDERED: Potassium Replacement Protocol 1 EACH MISC MISCELLANE PRN (05:02)
[2018-05-13 05:09] LABS: Glucose,Whole Blood 55 mg/dL (75-99)
[2018-05-13] MEDS: POTASSIUM CHLORIDE 10 MEQ in WATER FOR INJECTION 1 100ML.BAG IVPB SCH ×2 (05:15→06:05)
[2018-05-13] MEDS: MAGNESIUM SULFATE-D5W PMX 1 GM in DEXTROSE/WATER 1 100ML.BAG IVPB SCH ×2 (05:16→06:05)
[2018-05-13] MEDS: INSULIN ASPART 100 UNIT/ML 1 ML 10 ML VIAL SQ SCH ×4 (05:16→20:52)
[2018-05-13] MEDS ORDERED: DEXTROSE 50%-WATER 50 ML SYRINGE IVP STA (05:16)
[2018-05-13 05:20] LABS: Glucose,Whole Blood 236 mg/dL (75-99)
--- NOTE | 2018-05-13 08:01 | P.PN ---
Subjective Progress Note Date: 05/13/18 The patient has been extubated and is resting HEr urine remains clear. I will get ahold of radiation oncology about treatment of her bladder cancer. Objective - Vital Signs Vital signs: Vital Signs Temp 98.8 F 05/13/18 04:00 Pulse 74 05/13/18 07:00 Resp 18 05/13/18 07:00 BP 123/41 05/13/18 07:00 Pulse Ox 99 05/13/18 07:00 Intake & Output 05/12/18 05/13/18 05/13/18 18:59 06:59 18:59 Intake Total 3309.739 500 10 Output Total 3245 3075 200 Balance 64.739 -2575 -190 Weight 84.2 kg Intake: IV 3126 500 10 0.9 normal saline 120 100 10 Bladder Irrigation 0.9 3000 Normal Saline Magnesium Sulfate-D5w Pmx 200 1 gm In Dextrose/Water 1 100ml.bag @ 100 mls/hr IVPB Q1H [facility] Rx#: [id number] Potassium Chloride 10 meq 200 In Water For Injection 1 100ml.bag @ 100 mls/hr IVPB Q1H [facility] Rx#: [id number] pressure bag 6 Intake, IV Titration 183.739 Amount Propofol 1,000 mg In 140.421 Empty Bag 1 bag @ Titrate IV .Q0M [facility] Rx#: [id number] fentaNYL (PF) 2,500 mcg 43.318 In Sodium Chloride 0.9% 200 ml @ 100 MCG/HR 10 mls/hr IV .Q24H [facility] Rx#: [id number] Output: Drainage 15 Abdomen 15 Urine 3230 3075 200 Other: Voiding Method Indwelling Catheter Indwelling Catheter ABP, PAP, CO, CI - Last Documented Arterial Blood Pressure 112/37 - Labs CBC & Chem 7: 05/13/18 04:00 05/13/18 04:00 Labs: Abnormal Lab Results - Last 24 Hours (Table) 05/12/18 05/12/18 05/12/18 Range/Units 16:44 18:17 21:43 RBC (3.80-5.40) m/uL Hgb (11.4-16.0) gm/dL Hct (34.0-46.0) % Neutrophils # (1.3-7.7) k/uL Lymphocytes # (1.0-4.8) k/uL Sodium 128 L (137-145) mmol/L BUN (7-17) mg/dL Creatinine (0.52-1.04) mg/dL Glucose (74-99) mg/dL POC Glucose (mg/dL) 100 H 103 H (75-99) mg/dL Calcium (8.4-10.2) mg/dL 05/13/18 05/13/18 05/13/18 Range/Units 04:00 04:00 04:58 RBC 2.10 L (3.80-5.40) m/uL Hgb 6.5 L* (11.4-16.0) gm/dL Hct 18.9 L* (34.0-46.0) % Neutrophils # 8.5 H (1.3-7.7) k/uL Lymphocytes # 0.6 L (1.0-4.8) k/uL Sodium 131 L (137-145) mmol/L BUN 20 H (7-17) mg/dL Creatinine 1.07 H (0.52-1.04) mg/dL Glucose 47 L* (74-99) mg/dL POC Glucose (mg/dL) 55 L (75-99) mg/dL Calcium 7.7 L (8.4-10.2) mg/dL 05/13/18 Range/Units 05:09 RBC (3.80-5.40) m/uL Hgb (11.4-16.0) gm/dL Hct (34.0-46.0) % Neutrophils # (1.3-7.7) k/uL Lymphocytes # (1.0-4.8) k/uL Sodium (137-145) mmol/L BUN (7-17) mg/dL Creatinine (0.52-1.04) mg/dL Glucose (74-99) mg/dL POC Glucose (mg/dL) 236 H (75-99) mg/dL Calcium (8.4-10.2) mg/dL Microbiology - Last 24 Hours (Table) 05/10/18 00:12 Gram Stain - Final Sputum Sputum Culture - Final
--- NOTE | 2018-05-13 08:33 | XR ---
EXAMINATION TYPE: XR chest 1V DATE OF EXAM: 05/13/2018 HISTORY: Shortness of breath. COMPARISON: 05/12/2018 TECHNIQUE: Single view of the chest is submitted. FINDINGS: Demonstrated are scattered senescent parenchymal change. There is consolidation left lower lobe. The remainder of the lungs are clear. Endotracheal and NG tub es have been removed. The heart is stable. Hilar and mediastinal structures are within normal limits. Degenerative changes are seen of the dorsal spine. IMPRESSION: 1. Persistent left lower lobe consolidation.
--- NOTE | 2018-05-13 08:41 | P.PN ---
Subjective Progress Note Date: 05/13/18 This is a 78-year-old female with history of acute inferior wall microinfarction who had stent placement the right coronary artery. Subsequently she underwent bladder surgery for bladder CA associated with a severe hematuria. Since surgery. Patient has been intubated. Patient also developed problems with hyponatremia. She is anemic with hemoglobin of 7.1. Her blood pressure is running on the low side. We'll go discontinue Hyzaar. We 'll continue beta isaura as tolerated. She will also continue aspirin and Plavix because she had a stent recently. Apparently attempts are being made to extubate her today if possible. From cardiac standpoint, we'll continue current medical therapy. 05/13/2018: This is 78-year-old female who had a stent placement of the RCA in the setting of acute myocardial infarction, had surgery for bleeding and perforation and carcinoma of the bladder. Patient was extubated yesterday. Patient is alert. Seems to be confused about the events that happened in the hospital. She was asked if she had stents twice are once. She was informed that this study was done only once. She denies any chest pain or shortness of breath. Doesn't appear to be in acute distress. Her hemoglobin has dropped below 7 g. Patient is maintaining sinus rhythm. Cardiac as patient is stable. We'll continue current medical therapy with dual antiplatelet agents, beta blockers and also statins. Bleeding issues to be addressed by urology. Objective - Vital Signs Vital signs: Vital Signs Temp 98.4 F 05/13/18 08:00 Pulse 73 05/13/18 08:00 Resp 17 05/13/18 08:00 BP 109/41 05/13/18 08:00 Pulse Ox 100 05/13/18 08:00 Intake & Output 05/12/18 05/13/18 05/13/18 18:59 06:59 18:59 Intake Total 3309.739 500 20 Output Total 3245 3075 400 Balance 64.739 -8326 -380 Weight 84.2 kg Intake: IV 3126 500 20 0.9 normal saline 120 100 20 Bladder Irrigation 0.9 3000 Normal Saline Magnesium Sulfate-D5w Pmx 200 1 gm In Dextrose/Water 1 100ml.bag @ 100 mls/hr IVPB Q1H [facility] Rx#: [id number] Potassium Chloride 10 meq 200 In Water For Injection 1 100ml.bag @ 100 mls/hr IVPB Q1H [facility] Rx#: [id number] pressure bag 6 Intake, IV Titration 183.739 Amount Propofol 1,000 mg In 140.421 Empty Bag 1 bag @ Titrate IV .Q0M [facility] Rx#: [id number] fentaNYL (PF) 2,500 mcg 43.318 In Sodium Chloride 0.9% 200 ml @ 100 MCG/HR 10 mls/hr IV .Q24H [facility] Rx#: [id number] Output: Drainage 15 Abdomen 15 Urine 3230 3075 400 Other: Voiding Method Indwelling Catheter Indwelling Catheter Indwelling Catheter ABP, PAP, CO, CI - Last Documented Arterial Blood Pressure 112/37 - Exam GENERAL EXAM: Patient is extubated. Alert. No acute distress. HEENT: Normocephalic. Normal reaction of pupils, equal size, normal range of extraocular motion. No erythema or exudates in the throat. NECK: No masses, no nuchal rigidity. CHEST: No chest wall deformity. LUNGS:. We will initiate a change HEART: S1 and S2 normal with no audible mumurs or gallops. Regular rhythm, femorals equal on both sides.. ABDOMEN: Soft SKIN: No rashes CENTRAL NERVOUS SYSTEM: Unresponsive EXTREMITIES: No cyanosis, clubbing or edema. - Labs CBC & Chem 7: 05/13/18 04:00 05/13/18 04:00 Labs: Abnormal Lab Results - Last 24 Hours (Table) 05/12/18 05/12/18 05/12/18 Range/Units 16:44 18:17 21:43 RBC (3.80-5.40) m/uL Hgb (11.4-16.0) gm/dL Hct (34.0-46.0) % Neutrophils # (1.3-7.7) k/uL Lymphocytes # (1.0-4.8) k/uL Sodium 128 L (137-145) mmol/L BUN (7-17) mg/dL Creatinine (0.52-1.04) mg/dL Glucose (74-99) mg/dL POC Glucose (mg/dL) 100 H 103 H (75-99) mg/dL Calcium (8.4-10.2) mg/dL 05/13/18 05/13/18 05/13/18 Range/Units 04:00 04:00 04:58 RBC 2.10 L (3.80-5.40) m/uL Hgb 6.5 L* (11.4-16.0) gm/dL Hct 18.9 L* (34.0-46.0) % Neutrophils # 8.5 H (1.3-7.7) k/uL Lymphocytes # 0.6 L (1.0-4.8) k/uL Sodium 131 L (137-145) mmol/L BUN 20 H (7-17) mg/dL Creatinine 1.07 H (0.52-1.04) mg/dL Glucose 47 L* (74-99) mg/dL POC Glucose (mg/dL) 55 L (75-99) mg/dL Calcium 7.7 L (8.4-10.2) mg/dL 05/13/18 Range/Units 05:09 RBC (3.80-5.40) m/uL Hgb (11.4-16.0) gm/dL Hct (34.0-46.0) % Neutrophils # (1.3-7.7) k/uL Lymphocytes # (1.0-4.8) k/uL Sodium (137-145) mmol/L BUN (7-17) mg/dL Creatinine (0.52-1.04) mg/dL Glucose (74-99) mg/dL POC Glucose (mg/dL) 236 H (75-99) mg/dL Calcium (8.4-10.2) mg/dL Microbiology - Last 24 Hours (Table) 05/10/18 00:12 Gram Stain - Final Sputum Sputum Culture - Final Assessment and Plan (1) Hyponatremia Current Visit: Yes Status: Acute Code(s): E87.1 - HYPO-OSMOLALITY AND HYPONATREMIA SNOMED Code(s): 15813772 (2) Malignant neoplasm of bladder Current Visit: Yes Status: Acute Code(s): C67.9 - MALIGNANT NEOPLASM OF BLADDER, UNSPECIFIED SNOMED Code(s): 956984215 (3) ST elevation myocardial infarction (STEMI) Current Visit: Yes Status: Acute Code(s): I21.3 - ST ELEVATION (STEMI) MYOCARDIAL INFARCTION OF UNSP SITE SNOMED Code(s): 557262140 (4) Bladder cancer Current Visit: Yes Status: Acute Code(s): C67.9 - MALIGNANT NEOPLASM OF BLADDER, UNSPECIFIED SNOMED Code(s): 828664833 Plan: Continue current medical therapy with the dual antiplatelet agents, beta isaura and statin. Patient may need additional blood transfusion. We'll follow her.
[2018-05-13] MEDS ORDERED: ACETAMINOPHEN TAB 325 MG TAB PO PRN (09:10)
[2018-05-13] MEDS: ASPIRIN 81 MG PO SCH (09:24)
[2018-05-13] MEDS: FAMOTIDINE 20 MG TAB PO SCH (09:25)
[2018-05-13] MEDS: ATENOLOL 25 MG TAB PO SCH (09:25)
[2018-05-13] MEDS: MEMANTINE 10 MG TAB PO SCH ×2 (09:25→20:48)
[2018-05-13] MEDS: CLOPIDOGREL 75 MG TAB PO SCH (09:25)
[2018-05-13] MEDS: PRAMIPEXOLE 0.25 MG TAB PO SCH ×2 (09:25→20:48)
--- NOTE | 2018-05-13 10:32 | P.PN ---
Subjective Progress Note Date: 05/13/[address] Principal diagnosis: ST elevation myocardial infarction, respiratory failure, multiple surgical procedures Progress note dated 05/12/2018 This is a 78-year-old female was admitted back on May [address] segment elevation myocardial infarction. She went to the catheterization laboratory and a stent placed in the right coronary artery. She was intubated on May 09 having had to go to the operating room. The patient underwent a cystoscopy, evacuation of blood clots from the bladder, transurethral resection of the urethra, bladder tumor evaluation, exploratory laparotomy She is postop day #3. The patient remains on the mechanical ventilator in the volume assist control mode rate is 16, tidal volume 450, FiO2 40% which can be turned down to 30% PEEP of 5. Arterial blood gases show a PaO2 of 160, a PaCO2 31 and a pH of 7.41. The patient's currently on propofol, and 35 mcg/kg/m, fentanyl drip at 50 mics per hour saline at 10 mL an hour. Note feeds as yet. The patient will have a daily eruption of sedation and a spontaneous breathing trial this morning. Yesterday, she apparently did 2 hours on PSV and CPAP. The nurse feels that she might be ready for extubation. Chest x-ray shows a small left pleural effusion and some left basilar atelectasis or infiltrate as well as some minimal infiltrate or atelectasis at the right lung base. Microbiologic studies are negative. Progress note dated 05/13/2018 This is a 78-year-old female who was admitted back on May [address] segment elevation myocardial infarction. She went to the [facility] and had a stent placed in the right coronary artery. She was intubated on May 09 having had to go to the operating room for a cystoscopy, evacuation of blood clots in the bladder, transurethral resection, exploratory laparotomy. Yesterday, the patient looks good. She is postop day #4. While on the ventilator yesterday, we held sedation turned off the fentanyl drip and held the patient's propofol. She had excellent weaning parameters and she was extubated successfully yesterday. Currently, the patient's on O2 at 2 L by nasal cannula and receiving IV at KVO. Her hemoglobin this morning was 6.5 and she received 1 unit of packed red blood cells. The patient is very stable. She is awake and alert. She denies any complaints including pain. Her current microbiologic studies are negative. Chest x-ray shows a persistent area of left lower lobe infiltrate/atelectasis. White count is 9.9, hemoglobin 6.5, hematocrit 18.9 and platelet count was normal. Sodium 131, potassium 3.8 is 100 CO2 26 anion gap 5 BUN 20 and creatinine 1.07. Objective - Vital Signs Vital signs: Vital Signs Temp 98.5 F 05/13/18 09:49 Pulse 79 05/13/18 10:00 Resp 12 05/13/18 10:00 BP 121/43 05/13/18 10:00 Pulse Ox 99 05/13/18 10:00 Intake & Output 05/12/18 05/13/18 05/13/18 18:59 06:59 18:59 Intake Total 3309.739 500 400 Output Total 3245 3075 725 Balance 64.739 -5879 -325 Weight 84.2 kg Intake: IV 3126 500 40 0.9 normal saline 120 100 40 Bladder Irrigation 0.9 3000 Normal Saline Magnesium Sulfate-D5w Pmx 200 1 gm In Dextrose/Water 1 100ml.bag @ 100 mls/hr IVPB Q1H [facility] Rx#: [id number] Potassium Chloride 10 meq 200 In Water For Injection 1 100ml.bag @ 100 mls/hr IVPB Q1H [facility] Rx#: [id number] pressure bag 6 Intake, IV Titration 183.739 Amount Propofol 1,000 mg In 140.421 Empty Bag 1 bag @ Titrate IV .Q0M [facility] Rx#: [id number] fentaNYL (PF) 2,500 mcg 43.318 In Sodium Chloride 0.9% 200 ml @ 100 MCG/HR 10 mls/hr IV .Q24H [facility] Rx#: [id number] Oral 360 Blood Product 0 Rc As-1 Unit 0 [id number] Output: Drainage 15 Abdomen 15 Urine 3230 3075 725 Other: Voiding Method Indwelling Catheter Indwelling Catheter Indwelling Catheter ABP, PAP, CO, CI - Last Documented Arterial Blood Pressure 112/37 - Exam No acute distress, on nasal O2, alert and awake, without any obvious distress. The patient is not complaining of any pain. HEENT examination is grossly unremarkable. Mucous membranes are moist. Neck supple. Full range of motion. No adenopathy thyromegaly or neck vein distention. Cardiovascular examination reveals regular rhythm rate. S1-S2 normal. No S3 or S4. No discernible murmur noted. Heart sounds are distant. Lungs reveal mostly clear breath sounds. No wheezes or rhonchi. No crackles. Breath sounds equal bilaterally. She does not really take deep breaths. Abdomen is relatively soft without bowel sounds. Extremities are intact. No cyanosis clubbing or edema. Skin is without rash or lesion. Neurologic examination is brief and appears nonfocal. - Labs CBC & Chem 7: 05/13/18 04:00 05/13/18 04:00 Labs: Abnormal Lab Results - Last 24 Hours (Table) 05/12/18 05/12/18 05/12/18 Range/Units 16:44 18:17 21:43 RBC (3.80-5.40) m/uL Hgb (11.4-16.0) gm/dL Hct (34.0-46.0) % Neutrophils # (1.3-7.7) k/uL Lymphocytes # (1.0-4.8) k/uL Sodium 128 L (137-145) mmol/L BUN (7-17) mg/dL Creatinine (0.52-1.04) mg/dL Glucose (74-99) mg/dL POC Glucose (mg/dL) 100 H 103 H (75-99) mg/dL Calcium (8.4-10.2) mg/dL Crossmatch 05/13/18 05/13/18 05/13/18 Range/Units 04:00 04:00 04:58 RBC 2.10 L (3.80-5.40) m/uL Hgb 6.5 L* (11.4-16.0) gm/dL Hct 18.9 L* (34.0-46.0) % Neutrophils # 8.5 H (1.3-7.7) k/uL Lymphocytes # 0.6 L (1.0-4.8) k/uL Sodium 131 L (137-145) mmol/L BUN 20 H (7-17) mg/dL Creatinine 1.07 H (0.52-1.04) mg/dL Glucose 47 L* (74-99) mg/dL POC Glucose (mg/dL) 55 L (75-99) mg/dL Calcium 7.7 L (8.4-10.2) mg/dL Crossmatch 05/13/18 05/13/18 Range/Units 05:09 06:30 RBC (3.80-5.40) m/uL Hgb (11.4-16.0) gm/dL Hct (34.0-46.0) % Neutrophils # (1.3-7.7) k/uL Lymphocytes # (1.0-4.8) k/uL Sodium (137-145) mmol/L BUN (7-17) mg/dL Creatinine (0.52-1.04) mg/dL Glucose (74-99) mg/dL POC Glucose (mg/dL) 236 H (75-99) mg/dL Calcium (8.4-10.2) mg/dL Crossmatch See Detail Microbiology - Last 24 Hours (Table) 05/10/18 00:12 Gram Stain - Final Sputum Sputum Culture - Final Assessment and Plan Assessment: Assessment Postop day #4, status post cystoscopy, evacuation of clots, TUR, an exploratory laparotomy. Status post intubation with mechanical ventilation and subsequent extubation on May 12. Routine postoperative ventilator management. Status post ST segment elevation myocardial infarction, with stent to the RCA Recent acute inferior wall ST segment elevation myocardial infarction Acute blood loss secondary to hematuria from known bladder cancer History of hypertension History of insomnia Hyponatremia Stage III chronic kidney disease Plan: Plan dated 05/12/2018 I've asked the nurses to stop the propofol and fentanyl and give the patient a daily eruption of sedation with a spontaneous breathing trial. Apparently yesterday, she did reasonably well. We will drop the FiO2 down from 40-30%. Chest x-ray and blood gases are reviewed. Microbiologic studies thus far negative. White count 11.4, hemoglobin 7.2, hematocrit 20.7 and platelet count 197,000. Sodium 124 potassium 3.7 chloride is 97 CO2 19 and anion gap is 8 BUN 21 creatinine 1.11. Chest x-ray, labs and all medications are reviewed. I'm hopeful that we can move this patient towards extubation. Additional recommendations and suggestions are forthcoming. Critical care time 35 minutes Plan dated 05/13/2018 Currently, the patient is receiving supplemental oxygen at 2 L/m by nasal cannula. The patient will receive 1 unit of PRBCs today for hemoglobin of 6.5. The patient could be transferred to 6 selective. The patient denies any respiratory difficulties difficulty breathing chest pain chest discomfort or any other complaints at this time. Labs are reviewed. Medications and x-rays are both reviewed. Additional recommendations and suggestions are forthcoming. The patient seems be relatively stable postextubation. Prognosis is guarded. Surgery will follow along of course. Critical care time 33 minutes Time with Patient: Greater than 30
--- NOTE | 2018-05-13 12:01 | P.PN ---
Subjective Patient is seen in follow-up for acute kidney injury and hyponatremia. Sodium level is improving and is up to 131 this morning. Patient has history of bladder cancer and is status post TUR-BT with exploratory laparotomy on May 09. She also had a myocardial infarction and had a stent placed to the RCA on May 06. She is nonoliguric. Creatinine is down to 1.07 today. Currently resting in bed. Denies chest pain or shortness of breath. She is receiving a blood transfusion for hemoglobin of 6.5. Vital signs are stable. General: The patient appeared well nourished and normally developed. HEENT: Head exam is unremarkable. Neck is without jugular venous distension. LUNGS: Breath sounds decreased. HEART: Rate and Rhythm are regular. First and second heart sounds normal. No murmurs, rubs or gallops. ABDOMEN: Abdominal exam reveals normal bowel sounds. Non-tender and non- distended. No evidence of peritonitis. EXTREMITITES: No clubbing, cyanosis, or edema. Objective - Vital Signs Vital signs: Vital Signs Temp 98.6 F 05/13/18 10:19 Pulse 75 05/13/18 11:00 Resp 20 05/13/18 11:00 BP 120/42 05/13/18 11:00 Pulse Ox 100 05/13/18 11:00 Intake & Output 05/12/18 05/13/18 05/13/18 18:59 06:59 18:59 Intake Total 3309.739 500 650 Output Total 3245 3075 875 Balance 64.739 -2575 -225 Weight 84.2 kg 84.2 kg Intake: IV 3126 500 50 0.9 normal saline 120 100 50 Bladder Irrigation 0.9 3000 Normal Saline Magnesium Sulfate-D5w Pmx 200 1 gm In Dextrose/Water 1 100ml.bag @ 100 mls/hr IVPB Q1H [facility] Rx#: [id number] Potassium Chloride 10 meq 200 In Water For Injection 1 100ml.bag @ 100 mls/hr IVPB Q1H [facility] Rx#: [id number] pressure bag 6 Intake, IV Titration 183.739 Amount Propofol 1,000 mg In 140.421 Empty Bag 1 bag @ Titrate IV .Q0M [facility] Rx#: [id number] fentaNYL (PF) 2,500 mcg 43.318 In Sodium Chloride 0.9% 200 ml @ 100 MCG/HR 10 mls/hr IV .Q24H [facility] Rx#: [id number] Oral 600 Blood Product 0 Rc As-1 Unit 0 [id number] Output: Drainage 15 Abdomen 15 Urine 3230 2588 875 Other: Voiding Method Indwelling Catheter Indwelling Catheter Indwelling Catheter ABP, PAP, CO, CI - Last Documented Arterial Blood Pressure 112/37 - Labs CBC & Chem 7: 05/13/18 04:00 05/13/18 04:00 Labs: Abnormal Lab Results - Last 24 Hours (Table) 05/12/18 05/12/18 05/12/18 Range/Units 16:44 18:17 21:43 RBC (3.80-5.40) m/uL Hgb (11.4-16.0) gm/dL Hct (34.0-46.0) % Neutrophils # (1.3-7.7) k/uL Lymphocytes # (1.0-4.8) k/uL Sodium 128 L (137-145) mmol/L BUN (7-17) mg/dL Creatinine (0.52-1.04) mg/dL Glucose (74-99) mg/dL POC Glucose (mg/dL) 100 H 103 H (75-99) mg/dL Calcium (8.4-10.2) mg/dL Crossmatch 05/13/18 05/13/18 05/13/18 Range/Units 04:00 04:00 04:58 RBC 2.10 L (3.80-5.40) m/uL Hgb 6.5 L* (11.4-16.0) gm/dL Hct 18.9 L* (34.0-46.0) % Neutrophils # 8.5 H (1.3-7.7) k/uL Lymphocytes # 0.6 L (1.0-4.8) k/uL Sodium 131 L (137-145) mmol/L BUN 20 H (7-17) mg/dL Creatinine 1.07 H (0.52-1.04) mg/dL Glucose 47 L* (74-99) mg/dL POC Glucose (mg/dL) 55 L (75-99) mg/dL Calcium 7.7 L (8.4-10.2) mg/dL Crossmatch 05/13/18 05/13/18 Range/Units 05:09 06:30 RBC (3.80-5.40) m/uL Hgb (11.4-16.0) gm/dL Hct (34.0-46.0) % Neutrophils # (1.3-7.7) k/uL Lymphocytes # (1.0-4.8) k/uL Sodium (137-145) mmol/L BUN (7-17) mg/dL Creatinine (0.52-1.04) mg/dL Glucose (74-99) mg/dL POC Glucose (mg/dL) 236 H (75-99) mg/dL Calcium (8.4-10.2) mg/dL Crossmatch See Detail Microbiology - Last 24 Hours (Table) 05/10/18 00:12 Gram Stain - Final Sputum Sputum Culture - Final Assessment and Plan Plan: Assessment: 1. Hyponatremia secondary to large volume bladder irrigation as well as Hyzaar. Improving. 2. STEMI status post cardiac catheterization with a stent to the RCA on May 14. 3. Bladder cancer status post TUR-BT with exploratory laparotomy and closure of bladder rupture on May 09. 4. Metabolic acidosis secondary to acute kidney injury and IV fluids. Better. 5. Diabetes mellitus. 6. Acute kidney injury secondary to ATN secondary to hemodynamic instability and contrast-induced nephropathy. Creatinine down to 1.07 today. 7. Acute anemia currently receiving a blood transfusion. Plan: Remains off all IV fluids. Hold Hyzaar for now. Check iron studies. Encouraged oral intake. 1500 mL fluid restriction.
[2018-05-13 12:03] LABS: Glucose,Whole Blood 109 mg/dL (75-99)
--- NOTE | 2018-05-13 14:12 | P.PN ---
Subjective Progress Note Date: 05/13/18 This is a 78-year-old pleasant female patient of Dr. Joshua Cerna underlying history of dementia, diabetes mellitus type 2, hypertension, hyperlipidemia, who is currently a very poor historian. Patient provided some limited history that says chest discomfort and left shoulder discomfort, requiring ER evaluation. Patient was resting at that time, she denies any shortness of breath or diaphoresis no nausea or vomiting, no lightheadedness or dizziness, no syncope. EMS was called in, EKG was performed that shows acute ST segment elevation in the inferior leads, and was sent in directly to the cardiac laundry laborer and went for an emergent cardiac cath requiring drug-eluting stent involving the RCA from a 99% stenosis to 0% stenosis post-stenting. Patient was chest pain-free after the procedure, currently now requiring double antiplatelet platelet agents. Patient was last seen by Dr. Lewis 04/08/2018 for diabetic foot [id number] encounter for diabetic shoes Particular history is positive for hematuria on seen by Dr. Martinez and was referred to [facility] Dr. Roberts [phone] for which bladder surgery would be performed in May 2018, for the suspicious mass highly suggestive of malignancy Echocardiogram performed 05/06/2018 normal sinus rhythm, EF 50-55%, basal inferolateral hypokinesia, thickened aortic valve, mild aortic regurgitation, mild TR, mild MR, right ventricular systolic pressure of 16, aortic root size is normal, normal pericardium Cardiac cath report 05/06/2018, Dr. Katz, showed right coronary artery need stenosis from a 99% to 0% using Xience drug-eluting stent 3.0 x 18 mm, through the right radial artery approach. Findings shows RCA distally with mild disease , PDA and PLV branches have mild disease, left main normal, left circumflex complex normal, however there is 30% to 40% occlusive disease after the first OM branch, proximal LAD mild disease, Patient was comfortable when seen in the presence of the son who is POA, full discussion was made regarding the intervention for the STEMI as well as the need to delay the bladder surgery as it would require treatment of the cardiac occlusive disease first and was recommended to have cardiac clearance to be off the double antiplatelet agents prior to the anticipated bladder surgery 05/07: Patient will be transferred out of the intensive care unit today to selective care. She denies having any chest pain or shortness of breath. She does continue to have small amount of bright red blood in her urine but no clots , positive sediment. She has been encouraged to drink a glass of water by her physician in [facility]. Ferrlecit will be ordered. 05/08: Patient is resting comfortably up in a chair. She is denying having any chest pain or shortness of breath. Patient continues to have bright red blood in her urine. She had a large amount in the evening with 6-7 large clots and a another episode in the morning without any clots. Recently hemoglobin this morning was 8. Patient was seen by urology a three-way Pleitez catheter was placed in manually irrigated with removal of 1 clots. Continues bladder irrigation will continue with manual irrigation of the catheter as needed. 05/09: This morning, patient has hemoglobin of 6.71 unit packed RBCs will be ordered. Dr. Blount has evaluated with plan for cystoscopy and fulguration today. She had Pleitez catheter placed yesterday for retention and has noted hematuria which has been present since admission. Patient denies any chest pain , no abdominal pain, no lightheadedness. BUN 25 and creatinine 1.23 and sodium 125. Blood sugars have been labile with range of 78-223. Vital signs are stable, afebrile. 05/10: Patient is currently on vent after cystoscopy, transurethral resection of bladder tumor, exploratory laparotomy with closure of bladder laceration. Continuous bladder irrigation into suprapubic tube and throughout the urethral catheter. Shows a return with faint of pink tinged urine. Patient is hemodynamically stable. She appears to be resting comfortably. The CBC 14.4, hemoglobin 7.8, sodium 118, chloride 91. We will obtain osmolarity, sodium level and a urine random sodium. 05/11: Patient continues to be on vent after cystoscopy, transurethral resection of bladder tumor, exploratory laparotomy with closure of bladder laceration. Continuous bladder irrigation into the super pubic tube and throughout the urethral catheter continues at a slower rate. The return still has a faint pink tinged urine. Patient continues to be hemodynamically stable. She appears to be resting comfortably. Nephrology consult completed IV fluids have been stopped. Sodium has improved to 120. We will stop the Zoloft follow nephrology's recommendations. Patient has not had any bowel movements and a small amount of output from her NG tube. We will obtain an abdominal x- ray. 05/12: Patient remains intubated and on mechanical ventilation. She is off sedation and not currently following directions well. Possible extubation today. She is able to nod that she is not having any pain. She has been afebrile and vital signs are stable. White count is 11.4 and hemoglobin 7.2, sodium is improved to 124, BUN 21 and creatinine 1.11. Patient is followed by multiple consultants. 05/13: Patient was successfully extubated yesterday afternoon. She is currently on Plavix and aspirin. Hemoglobin this morning is 6.5 and she is scheduled for 1 unit packed RBCs. Her vital signs have been stable, she is on 2 L nasal cannula. Patient will be transferred out of ICU today. She ate about 50% of her breakfast this morning. Dr. Martinez is planning to contact radiation oncology for treatment for her bladder cancer. Review Of Systems: Constitutional: No fever, no chills, no night sweats. No weight change. Complains of weakness, fatigue or lethargy. No daytime sleepiness. EENT: No headache. No blurred vision or double vision, no loss of vision. No loss of Hearing, no ringing in the ears, no dizziness. No nasal drainage or congestion. No epistaxis. No sore throat. Lungs: No shortness of breath, cough, no sputum production. No wheezing. Cardiovascular: No chest pain, no lower extremity edema. No palpitations. No paroxysmal nocturnal dyspnea. No orthopnea. No lightheadedness or dizziness. No syncopal episodes. Abdominal: No abdominal pain. No nausea, vomiting. No diarrhea. No constipation. No bloody or tarry stools. Decreased appetite. Genitourinary: No dysuria, increased frequency, urgency. No urinary retention. Musculoskeletal: No myalgias. No muscle weakness, no gait dysfunction, no frequent falls. No back pain. No neck pain. Integumentary: No wounds, no lesions. No rash or pruritus. No unusual bruising. No change in hair or nails. Neurologic: No aphasia. No facial droop. No change in mentation. No head injury. No headache. No paralysis. No paresthesia. Psychiatric: No depression. No anxiety. No mood swings. Endocrine: No abnormal blood sugars. No weight change. No excessive sweating or thirst. No cold intolerance. Objective - Vital Signs Vital signs: Vital Signs Temp 98.6 F 05/13/18 10:19 Pulse 79 05/13/18 10:19 Resp 20 05/13/18 10:19 BP 120/42 05/13/18 10:19 Pulse Ox 100 05/13/18 10:19 Intake & Output 05/12/18 05/13/18 05/13/18 18:59 06:59 18:59 Intake Total 3309.739 500 400 Output Total 3245 3075 725 Balance 64.739 -2575 -325 Weight 84.2 kg 84.2 kg Intake: IV 3126 500 40 0.9 normal saline 120 100 40 Bladder Irrigation 0.9 3000 Normal Saline Magnesium Sulfate-D5w Pmx 200 1 gm In Dextrose/Water 1 100ml.bag @ 100 mls/hr IVPB Q1H [facility] Rx#: [id number] Potassium Chloride 10 meq 200 In Water For Injection 1 100ml.bag @ 100 mls/hr IVPB Q1H [facility] Rx#: [id number] pressure bag 6 Intake, IV Titration 183.739 Amount Propofol 1,000 mg In 140.421 Empty Bag 1 bag @ Titrate IV .Q0M [facility] Rx#: [id number] fentaNYL (PF) 2,500 mcg 43.318 In Sodium Chloride 0.9% 200 ml @ 100 MCG/HR 10 mls/hr IV .Q24H [facility] Rx#: [id number] Oral 360 Blood Product 0 Rc As-1 Unit 0 [id number] Output: Drainage 15 Abdomen 15 Urine 3230 3075 725 Other: Voiding Method Indwelling Catheter Indwelling Catheter Indwelling Catheter ABP, PAP, CO, CI - Last Documented Arterial Blood Pressure 112/37 - Exam General appearance: cooperative, no acute distress. Patient is sitting up in the ICU bed and appears to be comfortable - EENT Eyes: anicteric sclerae, EOMI, PERRLA, dentition normal, normal appearance ENT: hearing grossly normal, NA/AT, normal oropharynx - Neck Neck: normal ROM - Respiratory Respiratory: bilateral: CTA, negative: diminished, dullness, rales - Cardiovascular Rhythm: regular Heart sounds: normal: S1, S2. telemetry monitor is normal sinus rhythm. Abnormal Heart Sounds: systolic murmur - Gastrointestinal General gastrointestinal: normal bowel sounds, tenderness (None), Pleitez catheter. Dressing in place to her abdominal wound. JOSE J drain with sanguinous return. - Integumentary Integumentary: normal, normal turgor - Neurologic Neurologic: CNII-XII intact - Musculoskeletal Musculoskeletal: gait normal, strength equal bilaterally - Psychiatric Psychiatric: A&O x's 3, appropriate affect, intact judgment & insight - Labs CBC & Chem 7: 05/13/18 04:00 05/13/18 04:00 Labs: Abnormal Lab Results - Last 24 Hours (Table) 05/12/18 05/12/18 05/12/18 Range/Units 16:44 18:17 21:43 RBC (3.80-5.40) m/uL Hgb (11.4-16.0) gm/dL Hct (34.0-46.0) % Neutrophils # (1.3-7.7) k/uL Lymphocytes # (1.0-4.8) k/uL Sodium 128 L (137-145) mmol/L BUN (7-17) mg/dL Creatinine (0.52-1.04) mg/dL Glucose (74-99) mg/dL POC Glucose (mg/dL) 100 H 103 H (75-99) mg/dL Calcium (8.4-10.2) mg/dL Crossmatch 05/13/18 05/13/18 05/13/18 Range/Units 04:00 04:00 04:58 RBC 2.10 L (3.80-5.40) m/uL Hgb 6.5 L* (11.4-16.0) gm/dL Hct 18.9 L* (34.0-46.0) % Neutrophils # 8.5 H (1.3-7.7) k/uL Lymphocytes # 0.6 L (1.0-4.8) k/uL Sodium 131 L (137-145) mmol/L BUN 20 H (7-17) mg/dL Creatinine 1.07 H (0.52-1.04) mg/dL Glucose 47 L* (74-99) mg/dL POC Glucose (mg/dL) 55 L (75-99) mg/dL Calcium 7.7 L (8.4-10.2) mg/dL Crossmatch 05/13/18 05/13/18 Range/Units 05:09 06:30 RBC (3.80-5.40) m/uL Hgb (11.4-16.0) gm/dL Hct (34.0-46.0) % Neutrophils # (1.3-7.7) k/uL Lymphocytes # (1.0-4.8) k/uL Sodium (137-145) mmol/L BUN (7-17) mg/dL Creatinine (0.52-1.04) mg/dL Glucose (74-99) mg/dL POC Glucose (mg/dL) 236 H (75-99) mg/dL Calcium (8.4-10.2) mg/dL Crossmatch See Detail Microbiology - Last 24 Hours (Table) 05/10/18 00:12 Gram Stain - Final Sputum Sputum Culture - Final Assessment and Plan Plan: 1. Acute inferior wall STEMI involving RCA requiring drug-eluting stent to 99% of stenosis down to 0% successful stenting, performed 05/06/2018 Dr. Marie patient currently is on Lipitor 80 mg daily, Tenormin 25 mg daily, Plavix 75 mg daily aspirin 81 mg daily 2. Diabetes mellitus type 2 requiring NovoLog, Lantus 25 units daily, NovoLog scale, hemoglobin A1c is 7.0 3. Bladder cancer newly diagnosed presenting with cross hematuria, [facility] is anticipating bladder surgery around May 2018, Dr. Roberts, urologist. Dr. Blount consult appreciated. Cystoscopy, evacuation of clot , transverse resection of bladder tumor, exploratory laparotomy with closure of bladder laceration performed. 4. Hypertensive Vascular disease. Continue atenolol. 5. Dysthymia, Zoloft 50 mg daily 6. Neurocognitive deficits with memory loss, on Namenda 10 mg PAD, patient is not on any anticholinesterase medication. 7. Insomnia, schedule melatonin 6 mg at bedtime. 8. GI prophylaxis with Pepcid 9. DVT prophylaxis, high risk known bladder cancer, with SCDs 10. Chronic blood loss anemia hemoglobin is 9.0, iron studies will be done 11. Acute kidney injury secondary to ATN secondary to hemodynamic instability and contrast-induced nephropathy with CKD stage III nephrotoxins will be avoided , consult with nephrology appreciated 12. Hyponatremia acute, secondary to large volume bladder irrigation and Hyzaar. Hyzaar was discontinued. Nephrology consult appreciated. 13. Hypomagnesemia, replacement with monitoring 14. Mild metabolic acidosis, and is not on metformin prior to admission, continue fluids for hydration 15. Restless leg, on Mirapex 0.125 mg daily when necessary, iron studies to be obtained mite replacement 16. Possible postoperative ileus related to decreased bowel sounds and decreased NG tube output, improved Discharge plan: To be determined. Impression and plan of care have been directed as dictated by the signing physician. Kylah Begum nurse practitioner acting as scribe for signing physician.
[2018-05-13] MEDS: SODIUM CHLORIDE 0.9% IRRIGATIO 3,000 ML IRRIGATION SCH (14:56)
[2018-05-13 15:00] LABS: HCT 24.2 % (34.0-46.0); MCH 31.3 pg (25.0-35.0); MCHC 33.9 g/dL (31.0-37.0); MCV 92.3 fL (80.0-100.0); Mean Platelet Volume 7.8; Platelet Count 225 k/uL (150-450); RBC 2.62 m/uL (3.80-5.40); RDW 15.2 % (11.5-15.5); WBC 9.5 k/uL (3.8-10.6)
[2018-05-13 15:06] LABS: HGB 8.2 gm/dL (11.4-16.0)
[2018-05-13 17:40] LABS: Glucose,Whole Blood 145 mg/dL (75-99)
[2018-05-13 19:09] LABS: Iron Saturation 3.23 (12.00-45.00)
[2018-05-13 20:46] LABS: Glucose,Whole Blood 124 mg/dL (75-99)
[2018-05-13] MEDS: ATORVASTATIN 80 MG TAB PO SCH (20:48)
[2018-05-13] MEDS: MELATONIN 3 MG TABLET PO SCH (20:48)
[2018-05-14] MEDS ORDERED: FUROSEMIDE 10 MG/ML 4 ML VIAL IV STA (06:34)
[2018-05-14 07:31] LABS: Glucose,Whole Blood 123 mg/dL (75-99)
--- NOTE | 2018-05-14 07:47 | P.PN ---
Subjective Progress Note Date: 05/14/18 Principal diagnosis: ST elevation myocardial infarction, respiratory failure, multiple surgical procedures Progress note dated 05/12/2018 This is a 78-year-old female was admitted back on May [address] segment elevation myocardial infarction. She went to the catheterization laboratory and a stent placed in the right coronary artery. She was intubated on May 09 having had to go to the operating room. The patient underwent a cystoscopy, evacuation of blood clots from the bladder, transurethral resection of the urethra, bladder tumor evaluation, exploratory laparotomy She is postop day #3. The patient remains on the mechanical ventilator in the volume assist control mode rate is 16, tidal volume 450, FiO2 40% which can be turned down to 30% PEEP of 5. Arterial blood gases show a PaO2 of 160, a PaCO2 31 and a pH of 7.41. The patient's currently on propofol, and 35 mcg/kg/m, fentanyl drip at 50 mics per hour saline at 10 mL an hour. Note feeds as yet. The patient will have a daily eruption of sedation and a spontaneous breathing trial this morning. Yesterday, she apparently did 2 hours on PSV and CPAP. The nurse feels that she might be ready for extubation. Chest x-ray shows a small left pleural effusion and some left basilar atelectasis or infiltrate as well as some minimal infiltrate or atelectasis at the right lung base. Microbiologic studies are negative. Progress note dated 05/13/2018 This is a 78-year-old female who was admitted back on May [address] segment elevation myocardial infarction. She went to the [facility] and had a stent placed in the right coronary artery. She was intubated on May 09 having had to go to the operating room for a cystoscopy, evacuation of blood clots in the bladder, transurethral resection, exploratory laparotomy. Yesterday, the patient looks good. She is postop day #4. While on the ventilator yesterday, we held sedation turned off the fentanyl drip and held the patient's propofol. She had excellent weaning parameters and she was extubated successfully yesterday. Currently, the patient's on O2 at 2 L by nasal cannula and receiving IV at KVO. Her hemoglobin this morning was 6.5 and she received 1 unit of packed red blood cells. The patient is very stable. She is awake and alert. She denies any complaints including pain. Her current microbiologic studies are negative. Chest x-ray shows a persistent area of left lower lobe infiltrate/atelectasis. White count is 9.9, hemoglobin 6.5, hematocrit 18.9 and platelet count was normal. Sodium 131, potassium 3.8 is 100 CO2 26 anion gap 5 BUN 20 and creatinine 1.07. Progress note dated 05/14/2018 78-year-old female admitted back on May [address] segment elevation myocardial infarction. She went to the catheterization laboratory and had a stent placed in her right coronary artery. Subsequent to that, she went to the operating room and had a cystoscopy evacuation of blood clots from the ladder transurethral resection exploratory laparotomy and some other surgical procedures performed. She was intubated obviously for the procedure and came back to the ICU on the ventilator. She is postop day #5. 2 days ago, she was extubated. Currently she is doing well. She is on 2 L nasal cannula and a saline IV at 10 mL an hour. I've asked the nurses to place an incentive spirometer in the room and teach the patient how to do it. We are going to give her Lasix 40 mg IV push today because her chest x-ray shows some slight fluid overload. Other than that, she's doing relatively well. She has been a bit sleepy but today she's feeling better. Her microbiologic studies are thus far all negative. I don't see any new laboratory data from today. Objective - Vital Signs Vital signs: Vital Signs Temp 97.8 F 05/14/18 04:00 Pulse 75 05/14/18 05:00 Resp 20 05/14/18 05:00 BP 129/52 05/14/18 05:00 Pulse Ox 92 L 05/14/18 05:00 Intake & Output 05/13/18 05/14/18 05/14/18 18:59 06:59 18:59 Intake Total 4270 120 10 Output Total 1939 2124 125 Balance 2329 Weight 84.2 kg 85.7 kg Intake: IV 3120 120 10 0.9 normal saline 120 120 10 Bladder Irrigation 0.9 3000 Normal Saline Oral 840 Blood Product 310 Rc As-1 Unit 310 [id number] Output: Drainage 15 200 Abdomen 15 200 Urine 1925 1925 125 Other: Voiding Method Indwelling Catheter Indwelling Catheter # Bowel Movements 1 ABP, PAP, CO, CI - Last Documented Arterial Blood Pressure 112/37 - Exam No acute distress, on nasal O2, alert and awake, without any obvious distress. The patient is not complaining of any pain. HEENT examination is grossly unremarkable. Mucous membranes are moist. Neck supple. Full range of motion. No adenopathy thyromegaly or neck vein distention. Cardiovascular examination reveals regular rhythm rate. S1-S2 normal. No S3 or S4. No discernible murmur noted. Heart sounds are distant. Lungs reveal mostly clear breath sounds. A few scattered rhonchi are noted. She has some mild bibasilar crackles today. Breath sounds equal bilaterally. No wheezes appreciated.. Abdomen is relatively soft without bowel sounds. Extremities are intact. No cyanosis clubbing or edema. Skin is without rash or lesion. Neurologic examination is brief and appears nonfocal. - Labs CBC & Chem 7: 05/13/18 14:15 05/13/18 04:00 Labs: Abnormal Lab Results - Last 24 Hours (Table) 05/13/18 05/13/18 05/13/18 Range/Units 05:00 06:30 11:51 RBC (3.80-5.40) m/uL Hgb (11.4-16.0) gm/dL Hct (34.0-46.0) % POC Glucose (mg/dL) 109 H (75-99) mg/dL Iron 8 L (50-170) ug/dL Iron Saturation 3.23 L (12.00-45.00) Ferritin 609.5 H (10.0-291.0) ng/mL Crossmatch See Detail 05/13/18 05/13/18 05/13/18 Range/Units 14:15 17:29 20:35 RBC 2.62 L (3.80-5.40) m/uL Hgb 8.2 L D (11.4-16.0) gm/dL Hct 24.2 L (34.0-46.0) % POC Glucose (mg/dL) 145 H 124 H (75-99) mg/dL Iron (50-170) ug/dL Iron Saturation (12.00-45.00) Ferritin (10.0-291.0) ng/mL Crossmatch 05/14/18 Range/Units 07:19 RBC (3.80-5.40) m/uL Hgb (11.4-16.0) gm/dL Hct (34.0-46.0) % POC Glucose (mg/dL) 123 H (75-99) mg/dL Iron (50-170) ug/dL Iron Saturation (12.00-45.00) Ferritin (10.0-291.0) ng/mL Crossmatch Microbiology - Last 24 Hours (Table) 05/13/18 15:45 Catheter Tip Culture - Preliminary Catheter Tip Assessment and Plan Assessment: Assessment Postop day #5, status post cystoscopy, evacuation of clots, TUR, an exploratory laparotomy. Status post intubation with mechanical ventilation and subsequent extubation on May 12. Routine postoperative ventilator management. Status post ST segment elevation myocardial infarction, with stent to the RCA Recent acute inferior wall ST segment elevation myocardial infarction Acute blood loss secondary to hematuria from known bladder cancer History of hypertension History of insomnia Hyponatremia Stage III chronic kidney disease Plan: Plan dated 05/12/2018 I've asked the nurses to stop the propofol and fentanyl and give the patient a daily eruption of sedation with a spontaneous breathing trial. Apparently yesterday, she did reasonably well. We will drop the FiO2 down from 40-30%. Chest x-ray and blood gases are reviewed. Microbiologic studies thus far negative. White count 11.4, hemoglobin 7.2, hematocrit 20.7 and platelet count 197,000. Sodium 124 potassium 3.7 chloride is 97 CO2 19 and anion gap is 8 BUN 21 creatinine 1.11. Chest x-ray, labs and all medications are reviewed. I'm hopeful that we can move this patient towards extubation. Additional recommendations and suggestions are forthcoming. Critical care time 35 minutes Plan dated 05/13/2018 Currently, the patient is receiving supplemental oxygen at 2 L/m by nasal cannula. The patient will receive 1 unit of PRBCs today for hemoglobin of 6.5. The patient could be transferred to [address] [place] [address]. The patient denies any respiratory difficulties difficulty breathing chest pain chest discomfort or any other complaints at this time. Labs are reviewed. Medications and x-rays are both reviewed. Additional recommendations and suggestions are forthcoming. The patient seems be relatively stable postextubation. Prognosis is guarded. Surgery will follow along of course. Critical care time 33 minutes Plan dated 05/14/2018 The patient's doing reasonably well. She remains on O2 at 2 L. She's getting a saline IV at 10 mL an hour. I've asked the nurses to really focus on incentive spirometry with this patient. In addition, because chest x-ray shows some mild fluid overload, I wanted to get a one-time dose of Lasix 40 mg IV push. Microbiologic studies were negative. The patient is doing relatively well. She might be able to be transferred out of the ICU today. We'll follow her closely. We'll make additional recommendations were warranted. Prognosis is guarded. Critical care time 32 minutes Time with Patient: Greater than 30
[2018-05-14] MEDS: INSULIN ASPART 100 UNIT/ML 1 ML 10 ML VIAL SQ SCH ×4 (08:03→20:30)
--- NOTE | 2018-05-14 08:11 | XR ---
EXAMINATION TYPE: XR chest 1V DATE OF EXAM: 05/14/2018 COMPARISON: 05/13/2018 HISTORY: 78-year-old female with pleural effusions, follow-up exam TECHNIQUE: Single frontal view of the chest is obtained. FINDINGS: Heart remains mildly enlarged. Diffuse interstitial and vascular prominence appears increased. Increa sed hazy peripheral right basilar density. Continued small to moderate left pleural effusion with und erlying opacity. IMPRESSION: Correlate for CHF with pulmonary vascular congestion, increased in the interval. Continued moderate l eft pleural effusion with adjacent atelectasis and/or consolidation. Suspect trace effusion on the ri ght, increased.
[2018-05-14] MEDS: ASPIRIN 81 MG PO SCH (09:49)
[2018-05-14] MEDS: FAMOTIDINE 20 MG TAB PO SCH (09:49)
[2018-05-14] MEDS: MEMANTINE 10 MG TAB PO SCH ×2 (09:49→20:30)
[2018-05-14] MEDS: CLOPIDOGREL 75 MG TAB PO SCH (09:49)
[2018-05-14] MEDS: ATENOLOL 25 MG TAB PO SCH (09:49)
[2018-05-14] MEDS: PRAMIPEXOLE 0.25 MG TAB PO SCH ×2 (09:50→20:31)
--- NOTE | 2018-05-14 09:52 | P.PN ---
Subjective Progress Note Date: 05/14/18 This is a 78-year-old female with history of acute inferior wall microinfarction who had stent placement the right coronary artery. Subsequently she underwent bladder surgery for bladder CA associated with a severe hematuria. Since surgery. Patient has been intubated. Patient also developed problems with hyponatremia. She is anemic with hemoglobin of 7.1. Her blood pressure is running on the low side. We'll go discontinue Hyzaar. We 'll continue beta isaura as tolerated. She will also continue aspirin and Plavix because she had a stent recently. Apparently attempts are being made to extubate her today if possible. From cardiac standpoint, we'll continue current medical therapy. 05/13/2018: This is 78-year-old female who had a stent placement of the RCA in the setting of acute myocardial infarction, had surgery for bleeding and perforation and carcinoma of the bladder. Patient was extubated yesterday. Patient is alert. Seems to be confused about the events that happened in the hospital. She was asked if she had stents twice are once. She was informed that this study was done only once. She denies any chest pain or shortness of breath. Doesn't appear to be in acute distress. Her hemoglobin has dropped below 7 g. Patient is maintaining sinus rhythm. Cardiac as patient is stable. We'll continue current medical therapy with dual antiplatelet agents, beta blockers and also statins. Bleeding issues to be addressed by urology. 05/14/2018: Patient is alert and oriented and doesn't appear to be in acute distress. Her bleeding has slowed down. She did receive one unit of blood transfusion yesterday. Her chest x-ray showed some evidence of congestion and pleural effusion. She got one dose of IV Lasix today. Denies any chest pain or shortness of breath. Lungs show some diminished breath sounds at bases. Heart is regular. We'll continue current medical therapy. If necessary we'll add we will Lasix. Her echocardiogram showed normal LV function with mild hypokinesis of the inferior wall without any valvular abnormalities. We'll also try to increase activity as recommended by urology. Objective - Vital Signs Vital signs: Vital Signs Temp 98.9 F 05/14/18 08:00 Pulse 85 05/14/18 09:00 Resp 22 05/14/18 09:00 BP 136/57 05/14/18 09:00 Pulse Ox 91 L 05/14/18 09:00 Intake & Output 05/13/18 05/14/18 05/14/18 18:59 06:59 18:59 Intake Total 4270 120 30 Output Total 1939 2124 152 Balance 2329 Weight 84.2 kg 85.7 kg Intake: IV 3120 120 30 0.9 normal saline 120 120 30 Bladder Irrigation 0.9 3000 Normal Saline Oral 840 Blood Product 310 Rc As-1 Unit 310 [id number] Output: Drainage 15 200 Abdomen 15 200 Urine 1924 1924 152 Other: Voiding Method Indwelling Catheter Indwelling Catheter Indwelling Catheter # Bowel Movements 1 ABP, PAP, CO, CI - Last Documented Arterial Blood Pressure 112/37 - Exam GENERAL EXAM: Patient is extubated. Alert. No acute distress. HEENT: Normocephalic. Normal reaction of pupils, equal size, normal range of extraocular motion. No erythema or exudates in the throat. NECK: No masses, no nuchal rigidity. CHEST: No chest wall deformity. LUNGS:. We will initiate a change HEART: S1 and S2 normal with no audible mumurs or gallops. Regular rhythm, femorals equal on both sides.. ABDOMEN: Soft SKIN: No rashes CENTRAL NERVOUS SYSTEM: Unresponsive EXTREMITIES: No cyanosis, clubbing or edema. - Labs CBC & Chem 7: 05/13/18 14:15 05/13/18 04:00 Labs: Abnormal Lab Results - Last 24 Hours (Table) 05/13/18 05/13/18 05/13/18 Range/Units 05:00 06:30 11:51 RBC (3.80-5.40) m/uL Hgb (11.4-16.0) gm/dL Hct (34.0-46.0) % POC Glucose (mg/dL) 109 H (75-99) mg/dL Iron 8 L (50-170) ug/dL Iron Saturation 3.23 L (12.00-45.00) Ferritin 609.5 H (10.0-291.0) ng/mL Crossmatch See Detail 05/13/18 05/13/18 05/13/18 Range/Units 14:15 17:29 20:35 RBC 2.62 L (3.80-5.40) m/uL Hgb 8.2 L D (11.4-16.0) gm/dL Hct 24.2 L (34.0-46.0) % POC Glucose (mg/dL) 145 H 124 H (75-99) mg/dL Iron (50-170) ug/dL Iron Saturation (12.00-45.00) Ferritin (10.0-291.0) ng/mL Crossmatch 05/14/18 Range/Units 07:19 RBC (3.80-5.40) m/uL Hgb (11.4-16.0) gm/dL Hct (34.0-46.0) % POC Glucose (mg/dL) 123 H (75-99) mg/dL Iron (50-170) ug/dL Iron Saturation (12.00-45.00) Ferritin (10.0-291.0) ng/mL Crossmatch Microbiology - Last 24 Hours (Table) 05/11/18 20:12 Gram Stain - Final Sputum Sputum Culture - Final 05/13/18 15:45 Catheter Tip Culture - Preliminary Catheter Tip Assessment and Plan (1) Hyponatremia Current Visit: Yes Status: Acute Code(s): E87.1 - HYPO-OSMOLALITY AND HYPONATREMIA SNOMED Code(s): 41342568 (2) Malignant neoplasm of bladder Current Visit: Yes Status: Acute Code(s): C67.9 - MALIGNANT NEOPLASM OF BLADDER, UNSPECIFIED SNOMED Code(s): 188154557 (3) ST elevation myocardial infarction (STEMI) Current Visit: Yes Status: Acute Code(s): I21.3 - ST ELEVATION (STEMI) MYOCARDIAL INFARCTION OF UNSP SITE SNOMED Code(s): 845132615 (4) Bladder cancer Current Visit: Yes Status: Acute Code(s): C67.9 - MALIGNANT NEOPLASM OF BLADDER, UNSPECIFIED SNOMED Code(s): 332937435 Plan: Patient appears to be stable. Hemoglobin is about 8 g. Apparently the bleeding has slowed down. Cardiac-monroy, patient is stable. We'll continue current medical therapy.
[2018-05-14 09:57] LABS: Basophils % (A) 0 %; Eosinophils # (A) 0.1 k/uL (0-0.7); Eosinophils % (A) 1 %; HCT 28.5 % (34.0-46.0); Lymphocytes # (A) 0.6 k/uL (1.0-4.8); Lymphocytes % (A) 8 %; MCHC 34.3 g/dL (31.0-37.0); MCV 90.4 fL (80.0-100.0); Mean Platelet Volume 6.5; Monocytes # (A) 0.4 k/uL (0-1.0); Monocytes % (A) 5 %; Neutrophils # (A) 6.3 k/uL (1.3-7.7); Neutrophils % (A) 85 %; Platelet Count 265 k/uL (150-450); RBC 3.15 m/uL (3.80-5.40); RDW 14.9 % (11.5-15.5); WBC 7.5 k/uL (3.8-10.6)
[2018-05-14 09:59] LABS: HGB 9.8 gm/dL (11.4-16.0)
[2018-05-14 10:02] LABS: Calcium 8.4 mg/dL (8.4-10.2); Magnesium 1.6 mg/dL (1.6-2.3); Potassium 4.6 mmol/L (3.5-5.1)
--- NOTE | 2018-05-14 11:47 | P.PN ---
Subjective Patient is seen in follow-up for acute kidney injury and hyponatremia. Sodium level is stable at 131 this morning. Patient has history of bladder cancer and is status post TUR-BT with exploratory laparotomy on May 09. She also had a myocardial infarction and had a stent placed to the RCA on May 06. She is nonoliguric. Currently resting in bed. Denies chest pain or shortness of breath. She received a blood transfusion on May 13. Hemoglobin better. Renal function stable. Vital signs are stable. General: The patient appeared well nourished and normally developed. HEENT: Head exam is unremarkable. Neck is without jugular venous distension. LUNGS: Breath sounds decreased. HEART: Rate and Rhythm are regular. First and second heart sounds normal. No murmurs, rubs or gallops. ABDOMEN: Abdominal exam reveals normal bowel sounds. Non-tender and non- distended. No evidence of peritonitis. EXTREMITITES: No clubbing, cyanosis, or edema. Objective - Vital Signs Vital signs: Vital Signs Temp 98.9 F 05/14/18 08:00 Pulse 85 05/14/18 09:00 Resp 22 05/14/18 09:00 BP 136/57 05/14/18 09:00 Pulse Ox 91 L 05/14/18 09:00 Intake & Output 05/13/18 05/14/18 05/14/18 18:59 06:59 18:59 Intake Total 4270 120 50 Output Total 1939 2124 2275 Balance 2329 Weight 84.2 kg 85.7 kg Intake: IV 3120 120 50 0.9 normal saline 120 120 50 Bladder Irrigation 0.9 3000 Normal Saline Oral 840 Blood Product 310 Rc As-1 Unit 310 [id number] Output: Drainage 15 200 100 Abdomen 15 200 100 Urine 1924 1924 217 Other: Voiding Method Indwelling Catheter Indwelling Catheter Indwelling Catheter # Bowel Movements 1 ABP, PAP, CO, CI - Last Documented Arterial Blood Pressure 112/37 - Labs CBC & Chem 7: 05/14/18 09:12 05/14/18 09:12 Labs: Abnormal Lab Results - Last 24 Hours (Table) 05/13/18 05/13/18 05/13/18 Range/Units 05:00 06:30 11:51 RBC (3.80-5.40) m/uL Hgb (11.4-16.0) gm/dL Hct (34.0-46.0) % Lymphocytes # (1.0-4.8) k/uL Sodium (137-145) mmol/L Chloride (98-107) mmol/L BUN (7-17) mg/dL Creatinine (0.52-1.04) mg/dL Glucose (74-99) mg/dL POC Glucose (mg/dL) 109 H (75-99) mg/dL Iron 8 L (50-170) ug/dL Iron Saturation 3.23 L (12.00-45.00) Ferritin 609.5 H (10.0-291.0) ng/mL Crossmatch See Detail 05/13/18 05/13/18 05/13/18 Range/Units 14:15 17:29 20:35 RBC 2.62 L (3.80-5.40) m/uL Hgb 8.2 L D (11.4-16.0) gm/dL Hct 24.2 L (34.0-46.0) % Lymphocytes # (1.0-4.8) k/uL Sodium (137-145) mmol/L Chloride (98-107) mmol/L BUN (7-17) mg/dL Creatinine (0.52-1.04) mg/dL Glucose (74-99) mg/dL POC Glucose (mg/dL) 145 H 124 H (75-99) mg/dL Iron (50-170) ug/dL Iron Saturation (12.00-45.00) Ferritin (10.0-291.0) ng/mL Crossmatch 05/14/18 05/14/18 05/14/18 Range/Units 07:19 09:12 09:12 RBC 3.15 L (3.80-5.40) m/uL Hgb 9.8 L D (11.4-16.0) gm/dL Hct 28.5 L (34.0-46.0) % Lymphocytes # 0.6 L (1.0-4.8) k/uL Sodium 131 L (137-145) mmol/L Chloride 97 L (98-107) mmol/L BUN 22 H (7-17) mg/dL Creatinine 1.10 H (0.52-1.04) mg/dL Glucose 176 H (74-99) mg/dL POC Glucose (mg/dL) 123 H (75-99) mg/dL Iron (50-170) ug/dL Iron Saturation (12.00-45.00) Ferritin (10.0-291.0) ng/mL Crossmatch Microbiology - Last 24 Hours (Table) 05/11/18 20:12 Gram Stain - Final Sputum Sputum Culture - Final 05/13/18 15:45 Catheter Tip Culture - Preliminary Catheter Tip Assessment and Plan Plan: Assessment: 1. Hyponatremia secondary to large volume bladder irrigation as well as Hyzaar. Improved. 2. STEMI status post cardiac catheterization with a stent to the RCA on May 14. 3. Bladder cancer status post TUR-BT with exploratory laparotomy and closure of bladder rupture on May 09. 4. Metabolic acidosis secondary to acute kidney injury and IV fluids. Better. 5. Diabetes mellitus. 6. Acute kidney injury secondary to ATN secondary to hemodynamic instability and contrast-induced nephropathy. Renal function stable. 7. Acute anemia status post blood transfusion this admission. Better. Severe iron deficiency noted. 8. Fluid overload. Chest x-ray suggestive of CHF with vascular congestion and pleural effusion. Plan: Remains off all IV fluids. Hold Hyzaar for now. Encouraged oral intake. 1500 mL fluid restriction. Status post IV Lasix 40 mg this morning. IV Ferrlecit 3 doses. First dose today.
--- NOTE | 2018-05-14 11:55 | P.PN ---
Subjective Progress Note Date: 05/14/18 The patient continues to improve from her heart attack as well as her bladder problem. He is being transferred to the floor today, 3 S. Urine is cleared therefore I'll stop the bladder irrigation. I spoke with Dr. Chiu of radiation oncology and he will see the patient. The plan is hopefully delay radiation for about 6 weeks to allow the bladder to heal. Continue to follow this patient. The pathology report from the bladder biopsies is still pending Objective - Vital Signs Vital signs: Vital Signs Temp 98.9 F 05/14/18 08:00 Pulse 85 05/14/18 09:00 Resp 22 05/14/18 09:00 BP 136/57 05/14/18 09:00 Pulse Ox 91 L 05/14/18 09:00 Intake & Output 05/13/18 05/14/18 05/14/18 18:59 06:59 18:59 Intake Total 4270 120 50 Output Total 19395 Balance 2329 Weight 84.2 kg 85.7 kg Intake: IV 3120 120 50 0.9 normal saline 120 120 50 Bladder Irrigation 0.9 3000 Normal Saline Oral 840 Blood Product 310 Rc As-1 Unit 310 [id number] Output: Drainage 15 200 100 Abdomen 15 200 100 Urine 1924 1924 2175 Other: Voiding Method Indwelling Catheter Indwelling Catheter Indwelling Catheter # Bowel Movements 1 ABP, PAP, CO, CI - Last Documented Arterial Blood Pressure 112/37 - Labs CBC & Chem 7: 05/14/18 09:12 05/14/18 09:12 Labs: Abnormal Lab Results - Last 24 Hours (Table) 05/13/18 05/13/18 05/13/18 Range/Units 05:00 06:30 11:51 RBC (3.80-5.40) m/uL Hgb (11.4-16.0) gm/dL Hct (34.0-46.0) % Lymphocytes # (1.0-4.8) k/uL Sodium (137-145) mmol/L Chloride (98-107) mmol/L BUN (7-17) mg/dL Creatinine (0.52-1.04) mg/dL Glucose (74-99) mg/dL POC Glucose (mg/dL) 109 H (75-99) mg/dL Iron 8 L (50-170) ug/dL Iron Saturation 3.23 L (12.00-45.00) Ferritin 609.5 H (10.0-291.0) ng/mL Crossmatch See Detail 05/13/18 05/13/18 05/13/18 Range/Units 14:15 17:29 20:35 RBC 2.62 L (3.80-5.40) m/uL Hgb 8.2 L D (11.4-16.0) gm/dL Hct 24.2 L (34.0-46.0) % Lymphocytes # (1.0-4.8) k/uL Sodium (137-145) mmol/L Chloride (98-107) mmol/L BUN (7-17) mg/dL Creatinine (0.52-1.04) mg/dL Glucose (74-99) mg/dL POC Glucose (mg/dL) 145 H 124 H (75-99) mg/dL Iron (50-170) ug/dL Iron Saturation (12.00-45.00) Ferritin (10.0-291.0) ng/mL Crossmatch 05/14/18 05/14/18 05/14/18 Range/Units 07:19 09:12 09:12 RBC 3.15 L (3.80-5.40) m/uL Hgb 9.8 L D (11.4-16.0) gm/dL Hct 28.5 L (34.0-46.0) % Lymphocytes # 0.6 L (1.0-4.8) k/uL Sodium 131 L (137-145) mmol/L Chloride 97 L (98-107) mmol/L BUN 22 H (7-17) mg/dL Creatinine 1.10 H (0.52-1.04) mg/dL Glucose 176 H (74-99) mg/dL POC Glucose (mg/dL) 123 H (75-99) mg/dL Iron (50-170) ug/dL Iron Saturation (12.00-45.00) Ferritin (10.0-291.0) ng/mL Crossmatch Microbiology - Last 24 Hours (Table) 05/11/18 20:12 Gram Stain - Final Sputum Sputum Culture - Final 05/13/18 15:45 Catheter Tip Culture - Preliminary Catheter Tip
[2018-05-14 12:05] LABS: Glucose,Whole Blood 214 mg/dL (75-99)
[2018-05-14] MEDS: SODIUM FERRIC GLUCONAT-SUCROSE 125 MG in SODIUM CHLORIDE 0.9% 100 ML IVPB SCH (13:33)
--- NOTE | 2018-05-14 13:36 | P.PN ---
Subjective Progress Note Date: 05/14/18 This is a 78-year-old pleasant female patient of Dr. Joshua Cerna underlying history of dementia, diabetes mellitus type 2, hypertension, hyperlipidemia, who is currently a very poor historian. Patient provided some limited history that says chest discomfort and left shoulder discomfort, requiring ER evaluation. Patient was resting at that time, she denies any shortness of breath or diaphoresis no nausea or vomiting, no lightheadedness or dizziness, no syncope. EMS was called in, EKG was performed that shows acute ST segment elevation in the inferior leads, and was sent in directly to the cardiac senior cytogenetics laboratory director and went for an emergent cardiac cath requiring drug-eluting stent involving the RCA from a 99% stenosis to 0% stenosis post-stenting. Patient was chest pain-free after the procedure, currently now requiring double antiplatelet platelet agents. Patient was last seen by Dr. Lewis 04/08/2018 for diabetic foot [id number] encounter for diabetic shoes Particular history is positive for hematuria on seen by Dr. Martinez and was referred to [facility] Dr. Roberts [phone] for which bladder surgery would be performed in May 2018, for the suspicious mass highly suggestive of malignancy Echocardiogram performed 05/06/2018 normal sinus rhythm, EF 50-55%, basal inferolateral hypokinesia, thickened aortic valve, mild aortic regurgitation, mild TR, mild MR, right ventricular systolic pressure of 16, aortic root size is normal, normal pericardium Cardiac cath report 05/06/2018, Dr. Katz, showed right coronary artery need stenosis from a 99% to 0% using Xience drug-eluting stent 3.0 x 18 mm, through the right radial artery approach. Findings shows RCA distally with mild disease , PDA and PLV branches have mild disease, left main normal, left circumflex complex normal, however there is 30% to 40% occlusive disease after the first OM branch, proximal LAD mild disease, Patient was comfortable when seen in the presence of the son who is POA, full discussion was made regarding the intervention for the STEMI as well as the need to delay the bladder surgery as it would require treatment of the cardiac occlusive disease first and was recommended to have cardiac clearance to be off the double antiplatelet agents prior to the anticipated bladder surgery 05/07: Patient will be transferred out of the intensive care unit today to selective care. She denies having any chest pain or shortness of breath. She does continue to have small amount of bright red blood in her urine but no clots , positive sediment. She has been encouraged to drink a glass of water by her physician in [facility]. Ferrlecit will be ordered. 05/08: Patient is resting comfortably up in a chair. She is denying having any chest pain or shortness of breath. Patient continues to have bright red blood in her urine. She had a large amount in the evening with 6-7 large clots and a another episode in the morning without any clots. Recently hemoglobin this morning was 8. Patient was seen by urology a three-way Pleitez catheter was placed in manually irrigated with removal of 1 clots. Continues bladder irrigation will continue with manual irrigation of the catheter as needed. 05/09: This morning, patient has hemoglobin of 6.71 unit packed RBCs will be ordered. Dr. Blount has evaluated with plan for cystoscopy and fulguration today. She had Pleitez catheter placed yesterday for retention and has noted hematuria which has been present since admission. Patient denies any chest pain , no abdominal pain, no lightheadedness. BUN 25 and creatinine 1.23 and sodium 125. Blood sugars have been labile with range of 78-223. Vital signs are stable, afebrile. 05/10: Patient is currently on vent after cystoscopy, transurethral resection of bladder tumor, exploratory laparotomy with closure of bladder laceration. Continuous bladder irrigation into suprapubic tube and throughout the urethral catheter. Shows a return with faint of pink tinged urine. Patient is hemodynamically stable. She appears to be resting comfortably. The CBC 14.4, hemoglobin 7.8, sodium 118, chloride 91. We will obtain osmolarity, sodium level and a urine random sodium. 05/11: Patient continues to be on vent after cystoscopy, transurethral resection of bladder tumor, exploratory laparotomy with closure of bladder laceration. Continuous bladder irrigation into the super pubic tube and throughout the urethral catheter continues at a slower rate. The return still has a faint pink tinged urine. Patient continues to be hemodynamically stable. She appears to be resting comfortably. Nephrology consult completed IV fluids have been stopped. Sodium has improved to 120. We will stop the Zoloft follow nephrology's recommendations. Patient has not had any bowel movements and a small amount of output from her NG tube. We will obtain an abdominal x- ray. 05/12: Patient remains intubated and on mechanical ventilation. She is off sedation and not currently following directions well. Possible extubation today. She is able to nod that she is not having any pain. She has been afebrile and vital signs are stable. White count is 11.4 and hemoglobin 7.2, sodium is improved to 124, BUN 21 and creatinine 1.11. Patient is followed by multiple consultants. 05/13: Patient was successfully extubated yesterday afternoon. She is currently on Plavix and aspirin. Hemoglobin this morning is 6.5 and she is scheduled for 1 unit packed RBCs. Her vital signs have been stable, she is on 2 L nasal cannula. Patient will be transferred out of ICU today. She ate about 50% of her breakfast this morning. Dr. Martinez is planning to contact radiation oncology for treatment for her bladder cancer. 05/14: Patient remains in intensive care unit waiting for a bed. Blood pressure has been stable. Patient is currently on room air. She received Lasix 40 mg IV this morning. She did have a small amount of bleeding from the vaginal area. Pleitez catheter is blood tinged without clots with sufficient output. JOSE J drain has sanguinous drainage less than 100 mL over the past 24 hours. Patient did have a bowel movement yesterday which was liquid and C. difficile toxin was negative. Patient has not required pain medication. Dr. Martinez has discussed this case with Dr. Chiu radiation oncology and plan is to delay radiation for about 6 weeks to allow bladder to heal. Nephrology has ordered Ferrlecit for 3 doses starting today. Hemoglobin is 9.8, BUN 22 and creatinine 1.1. Review Of Systems: Constitutional: No fever, no chills, no night sweats. No weight change. Complains of weakness, fatigue or lethargy. No daytime sleepiness. EENT: No headache. No blurred vision or double vision, no loss of vision. No loss of Hearing, no ringing in the ears, no dizziness. No nasal drainage or congestion. No epistaxis. No sore throat. Lungs: No shortness of breath, cough, no sputum production. No wheezing. Cardiovascular: No chest pain, no lower extremity edema. No palpitations. No paroxysmal nocturnal dyspnea. No orthopnea. No lightheadedness or dizziness. Abdominal: No abdominal pain. No nausea, vomiting. No diarrhea. No constipation. No bloody or tarry stools. Decreased appetite. Genitourinary: No dysuria, increased frequency, urgency. No urinary retention. Musculoskeletal: No myalgias. No muscle weakness, no gait dysfunction, no frequent falls. No back pain. No neck pain. Integumentary: No wounds, no lesions. No rash or pruritus. No unusual bruising. No change in hair or nails. Neurologic: No aphasia. No facial droop. No change in mentation. No head injury. No headache. No paralysis. No paresthesia. Psychiatric: No depression. No anxiety. No mood swings. Endocrine: No abnormal blood sugars. No weight change. No excessive sweating or thirst. No cold intolerance. Objective - Vital Signs Vital signs: Vital Signs Temp 98.9 F 05/14/18 08:00 Pulse 85 05/14/18 09:00 Resp 22 05/14/18 09:00 BP 136/57 05/14/18 09:00 Pulse Ox 91 L 05/14/18 09:00 Intake & Output 05/13/18 05/14/18 05/14/18 18:59 06:59 18:59 Intake Total 4270 120 30 Output Total 1942124 1525 Balance 9400 -[id number] Weight 84.2 kg 85.7 kg Intake: IV 3120 120 30 0.9 normal saline 120 120 30 Bladder Irrigation 0.9 3000 Normal Saline Oral 840 Blood Product 310 Rc As-1 Unit 310 [id number] Output: Drainage 15 200 Abdomen 15 200 Urine 1925 1925 1525 Other: Voiding Method Indwelling Catheter Indwelling Catheter # Bowel Movements 1 ABP, PAP, CO, CI - Last Documented Arterial Blood Pressure 112/37 - Exam General appearance: cooperative. Patient is sitting up in the ICU bed and appears to be comfortable - EENT Eyes: anicteric sclerae, EOMI, PERRLA, dentition normal, normal appearance ENT: hearing grossly normal, NA/AT, normal oropharynx - Neck Neck: normal ROM - Respiratory Respiratory: bilateral: CTA, negative: diminished, dullness, rales - Cardiovascular Rhythm: regular Heart sounds: normal: S1, S2. 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 Abnormal Heart Sounds: systolic murmur - Gastrointestinal General gastrointestinal: normal bowel sounds, tenderness (None), Pleitez catheter. Dressing in place to her abdominal wound. JOSE J drain with sanguinous return. - Integumentary Integumentary: normal, normal turgor - Neurologic Neurologic: CNII-XII intact - Musculoskeletal Musculoskeletal: gait normal, strength equal bilaterally - Psychiatric Psychiatric: A&O x's 3, appropriate affect, intact judgment & insight - Labs CBC & Chem 7: 05/14/18 09:12 05/14/18 09:12 Labs: Abnormal Lab Results - Last 24 Hours (Table) 05/13/18 05/13/18 05/13/18 Range/Units 05:00 06:30 11:51 RBC (3.80-5.40) m/uL Hgb (11.4-16.0) gm/dL Hct (34.0-46.0) % POC Glucose (mg/dL) 109 H (75-99) mg/dL Iron 8 L (50-170) ug/dL Iron Saturation 3.23 L (12.00-45.00) Ferritin 609.5 H (10.0-291.0) ng/mL Crossmatch See Detail 05/13/18 05/13/18 05/13/18 Range/Units 14:15 17:29 20:35 RBC 2.62 L (3.80-5.40) m/uL Hgb 8.2 L D (11.4-16.0) gm/dL Hct 24.2 L (34.0-46.0) % POC Glucose (mg/dL) 145 H 124 H (75-99) mg/dL Iron (50-170) ug/dL Iron Saturation (12.00-45.00) Ferritin (10.0-291.0) ng/mL Crossmatch 05/14/18 Range/Units 07:19 RBC (3.80-5.40) m/uL Hgb (11.4-16.0) gm/dL Hct (34.0-46.0) % POC Glucose (mg/dL) 123 H (75-99) mg/dL Iron (50-170) ug/dL Iron Saturation (12.00-45.00) Ferritin (10.0-291.0) ng/mL Crossmatch Microbiology - Last 24 Hours (Table) 05/11/18 20:12 Gram Stain - Final Sputum Sputum Culture - Final 05/13/18 15:45 Catheter Tip Culture - Preliminary Catheter Tip Assessment and Plan Plan: 1. Acute inferior wall STEMI involving RCA requiring drug-eluting stent to 99% of stenosis down to 0% successful stenting, performed 05/06/2018 Dr. Marie patient currently is on Lipitor 80 mg daily, Tenormin 25 mg daily, Plavix 75 mg daily aspirin 81 mg daily 2. Diabetes mellitus type 2 insulin requiring, uncontrolled with hypoglycemia. Lantus discontinued continue NovoLog scale, hemoglobin A1c is 7.0. 3. Bladder cancer newly diagnosed presenting with cross hematuria, [facility] is anticipating bladder surgery around May 2018, Dr. Roberts, urologist. Dr. Blount consult appreciated. Cystoscopy, evacuation of clot , transverse resection of bladder tumor, exploratory laparotomy with closure of bladder laceration performed. 4. Hypertensive Vascular disease. Continue atenolol. 5. Dysthymia, Zoloft 50 mg daily 6. Neurocognitive deficits with memory loss, on Namenda 10 mg PAD, patient is not on any anticholinesterase medication. 7. Insomnia, schedule melatonin 6 mg at bedtime. 8. GI prophylaxis with Pepcid 9. DVT prophylaxis, high risk known bladder cancer, with SCDs 10. Chronic blood loss anemia hemoglobin is 9.0, iron studies will be done 11. Acute kidney injury secondary to ATN secondary to hemodynamic instability and contrast-induced nephropathy with CKD stage III nephrotoxins will be avoided , consult with nephrology appreciated 12. Hyponatremia acute, secondary to large volume bladder irrigation and Hyzaar. Hyzaar was discontinued. Nephrology consult appreciated. 13. Hypomagnesemia, replacement with monitoring 14. Mild metabolic acidosis, and is not on metformin prior to admission, continue fluids for hydration 15. Restless leg, on Mirapex 0.125 mg daily when necessary, iron studies to be obtained mite replacement 16. Possible postoperative ileus related to decreased bowel sounds and decreased NG tube output, improved Discharge plan: To be determined. Impression and plan of care have been directed as dictated by the signing physician. Kylah Begum nurse practitioner acting as scribe for signing physician.
[2018-05-14 17:22] LABS: Glucose,Whole Blood 186 mg/dL (75-99)
[2018-05-14 20:27] LABS: Glucose,Whole Blood 187 mg/dL (75-99)
[2018-05-14] MEDS: MELATONIN 3 MG TABLET PO SCH (20:30)
[2018-05-14] MEDS: ATORVASTATIN 80 MG TAB PO SCH (20:30)
[2018-05-15 06:00] LABS: Glucose,Whole Blood 138 mg/dL (75-99)
[2018-05-15] MEDS: INSULIN ASPART 100 UNIT/ML 1 ML 10 ML VIAL SQ SCH ×4 (06:11→22:11)
[2018-05-15 07:06] LABS: Basophils % (A) 0 %; Eosinophils # (A) 0.2 k/uL (0-0.7); Eosinophils % (A) 3 %; HCT 27.3 % (34.0-46.0); HGB 9.2 gm/dL (11.4-16.0); Lymphocytes % (A) 14 %; MCH 29.8 pg (25.0-35.0); MCHC 33.6 g/dL (31.0-37.0); MCV 88.7 fL (80.0-100.0); Mean Platelet Volume 6.4; Monocytes # (A) 0.6 k/uL (0-1.0); Monocytes % (A) 8 %; Neutrophils % (A) 72 %; Platelet Count 269 k/uL (150-450); RBC 3.08 m/uL (3.80-5.40); RDW 14.4 % (11.5-15.5); WBC 6.9 k/uL (3.8-10.6)
[2018-05-15 07:25] LABS: Calcium 8.3 mg/dL (8.4-10.2); Magnesium 1.3 mg/dL (1.6-2.3)
[2018-05-15] MEDS: CLOPIDOGREL 75 MG TAB PO SCH (08:41)
[2018-05-15] MEDS: MEMANTINE 10 MG TAB PO SCH ×2 (08:41→22:11)
[2018-05-15] MEDS: FAMOTIDINE 20 MG TAB PO SCH (08:41)
[2018-05-15] MEDS: ASPIRIN 81 MG PO SCH (08:41)
[2018-05-15] MEDS: ATENOLOL 25 MG TAB PO SCH (08:44)
[2018-05-15] MEDS: PRAMIPEXOLE 0.25 MG TAB PO SCH ×2 (08:44→22:11)
--- NOTE | 2018-05-15 09:02 | XR ---
EXAMINATION TYPE: XR chest 1V DATE OF EXAM: 05/15/2018 COMPARISON: 05/06/2018 HISTORY: Pleural effusions follow-up exam TECHNIQUE: Single frontal view of the chest is obtained. FINDINGS: There is improved degree of visualization of the left hemidiaphragm and costophrenic angle . Haziness remainder of the right costophrenic angle although partially attributable to copious overl yrn soft tissues. Low lung volumes are noted as well as mild enlargement of the cardiac silhouette. Pulmonary vascular congestion has resolved. IMPRESSION: Resolution of the previously seen pulmonary vascular congestion and improvement of the t race bilateral pleural effusions.
--- NOTE | 2018-05-15 10:17 | P.PN ---
Subjective Patient is seen in follow-up for acute kidney injury and hyponatremia. Sodium level is slightly better at 132 this morning. Patient has history of bladder cancer and is status post TUR-BT with exploratory laparotomy on May 09. She also had a myocardial infarction and had a stent placed to the RCA on May 06. She is nonoliguric. Currently resting in bed. Denies chest pain or shortness of breath. She received a blood transfusion on May 13. Renal function stable. Vital signs are stable. General: The patient appeared well nourished and normally developed. HEENT: Head exam is unremarkable. Neck is without jugular venous distension. LUNGS: Breath sounds decreased. HEART: Rate and Rhythm are regular. First and second heart sounds normal. No murmurs, rubs or gallops. ABDOMEN: Abdominal exam reveals normal bowel sounds. Non-tender and non- distended. No evidence of peritonitis. EXTREMITITES: No clubbing, cyanosis, or edema. Objective - Vital Signs Vital signs: Vital Signs Temp 98.1 F 05/15/18 08:00 Pulse 80 05/15/18 08:00 Resp 16 05/15/18 08:00 BP 137/52 05/15/18 08:00 Pulse Ox 92 L 05/15/18 08:00 Intake & Output 05/14/18 05/15/18 05/15/18 18:59 06:59 18:59 Intake Total 280 180 240 Output Total 2476 2100 Balance -2196 -1920 240 Weight 85.5 kg Intake: IV 50 0.9 normal saline 50 Oral 230 180 240 Output: Drainage 100 Abdomen 100 Urine 2375 2100 Stool 1 Other: Voiding Method Indwelling Catheter Indwelling Catheter ABP, PAP, CO, CI - Last Documented Arterial Blood Pressure 112/37 - Labs CBC & Chem 7: 05/15/18 06:29 05/15/18 06:29 Labs: Abnormal Lab Results - Last 24 Hours (Table) 05/14/18 05/14/18 05/14/18 Range/Units 11:54 17:01 20:25 RBC (3.80-5.40) m/uL Hgb (11.4-16.0) gm/dL Hct (34.0-46.0) % Sodium (137-145) mmol/L Chloride (98-107) mmol/L BUN (7-17) mg/dL Creatinine (0.52-1.04) mg/dL Glucose (74-99) mg/dL POC Glucose (mg/dL) 214 H 186 H 187 H (75-99) mg/dL Calcium (8.4-10.2) mg/dL Magnesium (1.6-2.3) mg/dL 05/15/18 05/15/18 05/15/18 Range/Units 05:58 06:29 06:29 RBC 3.08 L (3.80-5.40) m/uL Hgb 9.2 L (11.4-16.0) gm/dL Hct 27.3 L (34.0-46.0) % Sodium 132 L (137-145) mmol/L Chloride 97 L (98-107) mmol/L BUN 25 H (7-17) mg/dL Creatinine 1.09 H (0.52-1.04) mg/dL Glucose 122 H (74-99) mg/dL POC Glucose (mg/dL) 138 H (75-99) mg/dL Calcium 8.3 L (8.4-10.2) mg/dL Magnesium 1.3 L (1.6-2.3) mg/dL Microbiology - Last 24 Hours (Table) 05/13/18 15:45 Catheter Tip Culture - Preliminary Catheter Tip 05/11/18 20:12 Gram Stain - Final Sputum Sputum Culture - Final Assessment and Plan Plan: Assessment: 1. Hyponatremia secondary to large volume bladder irrigation as well as Hyzaar. Improved. 2. STEMI status post cardiac catheterization with a stent to the RCA on May 14. 3. Bladder cancer status post TUR-BT with exploratory laparotomy and closure of bladder rupture on May 09. 4. Metabolic acidosis secondary to acute kidney injury and IV fluids. Better. 5. Diabetes mellitus. 6. Acute kidney injury secondary to ATN secondary to hemodynamic instability and contrast-induced nephropathy. Renal function stable. 7. Acute anemia status post blood transfusion this admission. Better. Severe iron deficiency noted. 8. Fluid overload. Chest x-ray suggestive of CHF with vascular congestion and pleural effusion. 9. Hypomagnesemia secondary to diuresis. Plan: Remains off all IV fluids. Hold Hyzaar for now. Encouraged oral intake. 1500 mL fluid restriction. Status post IV Lasix 40 mg 05/14. IV Ferrlecit 3 doses. Second dose today. Replace magnesium. 3 g IV today.
--- NOTE | 2018-05-15 10:36 | P.CONS ---
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 She is status post TURBT, and was planning ultimate resection when she unfortunately suffered an AK and ended up in the hospital. The patient's oncologic history began approximately 8 months ago, when she developed hematuria. She underwent TURBT revealing a T1, grade 3 urothelial cell carcinoma. She underwent adjuvant therapy with BCG. She unfortunately had evidence of recurrent/persistent disease, and underwent a repeat TURBT on March 03. At this time, there was reportedly superficial muscle invasion upstaging her to a T2. The patient is a bit of a poor historian, but her son reports that she did have bleeding following this procedure that never completely improved. The patient was seen in consultation at [facility] as well as at the [facility] and was ultimately recommended to undergo cystectomy. She has not yet had this procedure however. Unfortunately, she was admitted to the emergency room on May 06 with the acute myocardial infarction. She underwent urgent cardiac stent placement, and was subsequently started on antiplatelet therapy. This unfortunately exacerbated the patient's hematuria, and she was now having gross hematuria with frequent clots. Bladder irrigation was started on May 08. The patient was taken for cystoscopy on May 09, and there was significant clotting seen within the bladder. There was evidence of persistent tumor with a friable mass involving the right hemitrigone and right posterior lateral bladder wall. Additionally there was a bladder laceration in the left anterior lateral bladder wall. The procedure was then converted to an exploratory laparotomy, and significant peritoneal fluid was removed. The bladder wall laceration was closed and a suprapubic catheter was installed. Following her surgery, the patient has continued bladder irrigation. There is been significant improvement in the blood seen within the urine. Her most recent hemoglobin level has been ranging from 9.2 - 9.8. It is difficult to assess how good the patient's bladder function was prior to all of this treatment. As noted, the patient is a poor historian and currently lives with her son. She has multiple medical comorbidities. It seemed like the patient at least had stress incontinence prior to initiating treatment for her bladder cancer. Review of Systems Constitutional: Denies chills, Denies fever Eyes: bilateral blurred vision Ears: deny: decreased hearing Ears, nose, mouth and throat: Denies neck lump Cardiovascular: Reports chest pain (resolved - present on admission), Denies lightheadedness Respiratory: Denies cough Gastrointestinal: Denies abdominal pain, Denies BRBPR Genitourinary: Reports hematuria (as per HPI), Reports stress incontinence (but currently catheterized) Integumentary: Denies rash Neurological: Reports memory loss, Denies ataxia, Denies convulsions Psychiatric: Denies anxiety Past Medical History Past Medical History: Coronary Artery Disease (CAD), Cancer, Chest Pain / Angina , Dementia, Diabetes Mellitus, Hyperlipidemia, Hypertension, Memory Impairment, Myocardial Infarction (AK), Osteoarthritis (OA) Additional Past Medical History / Comment(s): Restless leg syndrome, Bladder Cancer with Gross hematuria Last Myocardial Infarction Date:: 05/06/18 History of Any Multi-Drug Resistant Organisms: None Reported Past Surgical History: Cholecystectomy, Heart Catheterization With Stent Additional Past Surgical History / Comment(s): Arthroscopic knee surgery left, Left ankle surgery 09/17/2014, Past Anesthesia/Blood Transfusion Reactions: No Reported Reaction Date of Last Stent Placement:: 05/06/18 Smoking Status: Former smoker - Past Family History Father Family Medical History: Dementia Mother Family Medical History: Cancer (Pancreas) Sister(s) Family Medical History: Cancer (Lung cancer) Brother(s) Family Medical History: No Reported History Son(s) Family Medical History: No Reported History (Healthy) Medications and Allergies Home Medications Medication Instructions Recorded Confirmed Type Atenolol [Tenormin] 25 mg PO DAILY 09/17/14 05/06/18 History Insulin Glargine,Hum.rec.anlog 55 unit SQ DAILY 09/17/14 05/06/18 History [Lantus Solostar] Losartan/Hydrochlorothiazide 1 tab PO DAILY 09/17/14 05/06/18 History [Hyzaar 100-25 Tablet] Pravastatin Sodium [Pravachol] 40 mg PO HS 09/17/14 05/06/18 History Famotidine [Pepcid] 20 mg PO BID 05/06/18 05/06/18 History Ginkgo Biloba [place] Extract [Ginkgo] 60 mg PO BID 05/06/18 05/06/18 History Memantine [Namenda] 10 mg PO BID 05/06/18 05/06/18 History Pramipexole [Mirapex] 0.125 mg PO DAILY PRN 05/06/18 05/06/18 History Sertraline [Zoloft] 50 mg PO DAILY 05/06/18 05/06/18 History Turmeric Root Extract [Turmeric] 500 mg PO DAILY 05/06/18 05/06/18 History Ubidecarenone [Co Q-10] 200 mg PO DAILY 05/06/18 05/06/18 History Allergies Allergy/AdvReac Type Severity Reaction Status Date / Time Penicillins AdvReac Mild Unknown Verified 05/06/18 16:12 Physical Exam Vitals: Vital Signs Temp Pulse Pulse Pulse Resp BP BP 05/15/18 08:00 98.1 F 80 16 137/52 05/15/18 03:37 84 18 123/52 05/15/18 00:00 85 20 122/52 05/14/18 20:00 99.7 F H 83 20 118/47 05/14/18 16:00 82 16 122/68 05/14/18 12:00 98 F 84 19 132/50 Pulse Ox 05/15/18 08:00 92 L 05/15/18 03:37 93 L 05/15/18 00:00 95 05/14/18 20:00 93 L 05/14/18 16:00 92 L 05/14/18 12:00 84 L Intake and Output 05/14/18 05/15/18 05/15/18 22:59 06:59 14:59 Intake Total 180 240 Output Total 1601 500 Balance -1421 -500 240 Intake: Oral 180 240 Output: Urine 1600 500 Stool 1 Other: Voiding Method Indwelling Catheter Indwelling Catheter Weight 85.5 kg - Constitutional General appearance: disheveled, no acute distress - EENT Eyes: EOMI, PERRLA ENT: hard of hearing - Neck Neck: no lymphadenopathy - Respiratory Respiratory: bilateral: CTA - Cardiovascular Rhythm: regular - Gastrointestinal General gastrointestinal: soft, no tenderness - Integumentary Integumentary: no calor, no cellulitis - Neurologic Neurologic: CNII-XII intact - Psychiatric Psychiatric: appropriate affect Results CBC & Chem 7: 05/15/18 06:29 05/15/18 06:29 Labs: Abnormal Lab Results - Last 24 Hours (Table) 05/14/18 05/14/18 05/14/18 Range/Units 09:12 09:12 11:54 RBC 3.15 L (3.80-5.40) m/uL Hgb 9.8 L D (11.4-16.0) gm/dL Hct 28.5 L (34.0-46.0) % Lymphocytes # 0.6 L (1.0-4.8) k/uL Sodium 131 L (137-145) mmol/L Chloride 97 L (98-107) mmol/L BUN 22 H (7-17) mg/dL Creatinine 1.10 H (0.52-1.04) mg/dL Glucose 176 H (74-99) mg/dL POC Glucose (mg/dL) 214 H (75-99) mg/dL Calcium (8.4-10.2) mg/dL Magnesium (1.6-2.3) mg/dL 05/14/18 05/14/18 05/15/18 Range/Units 17:01 20:25 05:58 RBC (3.80-5.40) m/uL Hgb (11.4-16.0) gm/dL Hct (34.0-46.0) % Lymphocytes # (1.0-4.8) k/uL Sodium (137-145) mmol/L Chloride (98-107) mmol/L BUN (7-17) mg/dL Creatinine (0.52-1.04) mg/dL Glucose (74-99) mg/dL POC Glucose (mg/dL) 186 H 187 H 138 H (75-99) mg/dL Calcium (8.4-10.2) mg/dL Magnesium (1.6-2.3) mg/dL 05/15/18 05/15/18 Range/Units 06:29 06:29 RBC 3.08 L (3.80-5.40) m/uL Hgb 9.2 L (11.4-16.0) gm/dL Hct 27.3 L (34.0-46.0) % Lymphocytes # (1.0-4.8) k/uL Sodium 132 L (137-145) mmol/L Chloride 97 L (98-107) mmol/L BUN 25 H (7-17) mg/dL Creatinine 1.09 H (0.52-1.04) mg/dL Glucose 122 H (74-99) mg/dL POC Glucose (mg/dL) (75-99) mg/dL Calcium 8.3 L (8.4-10.2) mg/dL Magnesium 1.3 L (1.6-2.3) mg/dL Microbiology - Last 24 Hours (Table) 05/13/18 15:45 Catheter Tip Culture - Preliminary Catheter Tip 05/11/18 20:12 Gram Stain - Final Sputum Sputum Culture - Final Assessment and Plan Plan: 1. The patient is a 78-year-old female with a history of a stage II (cT2a, cN0 , M0) poorly differentiated urothelial cell carcinoma of the right posterior bladder. She was initially investigating the possibility of cystectomy at the [facility], however she has multiple medical comorbidities and now presents with acute AK. She does have some evidence of residual tumor at this time, and as detailed previously had open repair of a recent bladder laceration. I discussed with the patient and her son that based on her multiple medical comorbidities, I felt that she would be a good candidate for a bladder preserving approach. The patient is reportedly had a CT scan of the outside hospital. We will request these results for review. I did explain that considering the patient did require recent laceration repair, my preference would be to try to delay any potential therapy for 4-6 weeks. I did explain that the addition of a low-dose chemotherapy to this treatment regimen does improve local control. I discussed however the radiotherapy alone can be curative in some patients, and that at minimum would provide durable palliation for her persistent hematuria. I will schedule the patient to follow-up in our office in approximately 3 weeks. As long as she does not have progressive hematuria (minimal pink tinge to urine at this time, but patient is having CBI) , I am comfortable delaying her treatment to allow improved healing of the recently repaired laceration. Prior to initiating her treatment, I will probably have the patient repeat staging studies as an outpatient. Time with Patient: Greater than 30
[2018-05-15 11:27] LABS: Glucose,Whole Blood 132 mg/dL (75-99)
--- NOTE | 2018-05-15 11:47 | P.PN ---
Subjective Progress Note Date: 05/15/18 The patient is now on the floor. She is stable hemodynamically. She pulled out her urethral catheter the same. The urine is correspondingly red. It is not bad however. I will discuss with about drain removal. He'll continue with his suprapubic tube. She has been seen by radiation oncology and I appreciated that note. Her hemoglobin is stable at 9.2 Objective - Vital Signs Vital signs: Vital Signs Temp 98.1 F 05/15/18 08:00 Pulse 80 05/15/18 08:00 Resp 16 05/15/18 08:00 BP 137/52 05/15/18 08:00 Pulse Ox 92 L 05/15/18 08:00 Intake & Output 05/14/18 05/15/18 05/15/18 18:59 06:59 18:59 Intake Total 280 180 240 Output Total 2476 2100 1 Balance -6 192 239 Weight 85.5 kg Intake: IV 50 0.9 normal saline 50 Oral 230 180 240 Output: Drainage 100 Abdomen 100 Urine 2375 2100 Stool 1 1 Other: Voiding Method Indwelling Catheter Indwelling Catheter Indwelling Catheter ABP, PAP, CO, CI - Last Documented Arterial Blood Pressure 112/37 - Labs CBC & Chem 7: 05/15/18 06:29 05/15/18 06:29 Labs: Abnormal Lab Results - Last 24 Hours (Table) 05/14/18 05/14/18 05/14/18 Range/Units 11:54 17:01 20:25 RBC (3.80-5.40) m/uL Hgb (11.4-16.0) gm/dL Hct (34.0-46.0) % Sodium (137-145) mmol/L Chloride (98-107) mmol/L BUN (7-17) mg/dL Creatinine (0.52-1.04) mg/dL Glucose (74-99) mg/dL POC Glucose (mg/dL) 214 H 186 H 187 H (75-99) mg/dL Calcium (8.4-10.2) mg/dL Magnesium (1.6-2.3) mg/dL 05/15/18 05/15/18 05/15/18 Range/Units 05:58 06:29 06:29 RBC 3.08 L (3.80-5.40) m/uL Hgb 9.2 L (11.4-16.0) gm/dL Hct 27.3 L (34.0-46.0) % Sodium 132 L (137-145) mmol/L Chloride 97 L (98-107) mmol/L BUN 25 H (7-17) mg/dL Creatinine 1.09 H (0.52-1.04) mg/dL Glucose 122 H (74-99) mg/dL POC Glucose (mg/dL) 138 H (75-99) mg/dL Calcium 8.3 L (8.4-10.2) mg/dL Magnesium 1.3 L (1.6-2.3) mg/dL 05/15/18 Range/Units 11:22 RBC (3.80-5.40) m/uL Hgb (11.4-16.0) gm/dL Hct (34.0-46.0) % Sodium (137-145) mmol/L Chloride (98-107) mmol/L BUN (7-17) mg/dL Creatinine (0.52-1.04) mg/dL Glucose (74-99) mg/dL POC Glucose (mg/dL) 132 H (75-99) mg/dL Calcium (8.4-10.2) mg/dL Magnesium (1.6-2.3) mg/dL Microbiology - Last 24 Hours (Table) 05/13/18 15:45 Catheter Tip Culture - Preliminary Catheter Tip 05/11/18 20:12 Gram Stain - Final Sputum Sputum Culture - Final
[2018-05-15] MEDS: SODIUM FERRIC GLUCONAT-SUCROSE 125 MG in SODIUM CHLORIDE 0.9% 100 ML IVPB SCH (11:48)
--- NOTE | 2018-05-15 12:35 | P.PN ---
Subjective Progress Note Date: 05/15/18 This is a 78-year-old pleasant female patient of Dr. Joshua Cerna underlying history of dementia, diabetes mellitus type 2, hypertension, hyperlipidemia, who is currently a very poor historian. Patient provided some limited history that says chest discomfort and left shoulder discomfort, requiring ER evaluation. Patient was resting at that time, she denies any shortness of breath or diaphoresis no nausea or vomiting, no lightheadedness or dizziness, no syncope. EMS was called in, EKG was performed that shows acute ST segment elevation in the inferior leads, and was sent in directly to the cardiac superintendent geophysical laboratory and went for an emergent cardiac cath requiring drug-eluting stent involving the RCA from a 99% stenosis to 0% stenosis post-stenting. Patient was chest pain-free after the procedure, currently now requiring double antiplatelet platelet agents. Patient was last seen by Dr. Lewis 04/08/2018 for diabetic foot [id number] encounter for diabetic shoes Particular history is positive for hematuria on seen by Dr. Martinez and was referred to [facility] Dr. Roberts [phone] for which bladder surgery would be performed in May 2018, for the suspicious mass highly suggestive of malignancy Echocardiogram performed 05/06/2018 normal sinus rhythm, EF 50-55%, basal inferolateral hypokinesia, thickened aortic valve, mild aortic regurgitation, mild TR, mild MR, right ventricular systolic pressure of 16, aortic root size is normal, normal pericardium Cardiac cath report 05/06/2018, Dr. Katz, showed right coronary artery need stenosis from a 99% to 0% using Xience drug-eluting stent 3.0 x 18 mm, through the right radial artery approach. Findings shows RCA distally with mild disease , PDA and PLV branches have mild disease, left main normal, left circumflex complex normal, however there is 30% to 40% occlusive disease after the first OM branch, proximal LAD mild disease, Patient was comfortable when seen in the presence of the son who is POA, full discussion was made regarding the intervention for the STEMI as well as the need to delay the bladder surgery as it would require treatment of the cardiac occlusive disease first and was recommended to have cardiac clearance to be off the double antiplatelet agents prior to the anticipated bladder surgery 05/07: Patient will be transferred out of the intensive care unit today to selective care. She denies having any chest pain or shortness of breath. She does continue to have small amount of bright red blood in her urine but no clots , positive sediment. She has been encouraged to drink a glass of water by her physician in [facility]. Ferrlecit will be ordered. 05/08: Patient is resting comfortably up in a chair. She is denying having any chest pain or shortness of breath. Patient continues to have bright red blood in her urine. She had a large amount in the evening with 6-7 large clots and a another episode in the morning without any clots. Recently hemoglobin this morning was 8. Patient was seen by urology a three-way Pleitez catheter was placed in manually irrigated with removal of 1 clots. Continues bladder irrigation will continue with manual irrigation of the catheter as needed. 05/09: This morning, patient has hemoglobin of 6.71 unit packed RBCs will be ordered. Dr. Blount has evaluated with plan for cystoscopy and fulguration today. She had Pleitez catheter placed yesterday for retention and has noted hematuria which has been present since admission. Patient denies any chest pain , no abdominal pain, no lightheadedness. BUN 25 and creatinine 1.23 and sodium 125. Blood sugars have been labile with range of 78-223. Vital signs are stable, afebrile. 05/10: Patient is currently on vent after cystoscopy, transurethral resection of bladder tumor, exploratory laparotomy with closure of bladder laceration. Continuous bladder irrigation into suprapubic tube and throughout the urethral catheter. Shows a return with faint of pink tinged urine. Patient is hemodynamically stable. She appears to be resting comfortably. The CBC 14.4, hemoglobin 7.8, sodium 118, chloride 91. We will obtain osmolarity, sodium level and a urine random sodium. 05/11: Patient continues to be on vent after cystoscopy, transurethral resection of bladder tumor, exploratory laparotomy with closure of bladder laceration. Continuous bladder irrigation into the super pubic tube and throughout the urethral catheter continues at a slower rate. The return still has a faint pink tinged urine. Patient continues to be hemodynamically stable. She appears to be resting comfortably. Nephrology consult completed IV fluids have been stopped. Sodium has improved to 120. We will stop the Zoloft follow nephrology's recommendations. Patient has not had any bowel movements and a small amount of output from her NG tube. We will obtain an abdominal x- ray. 05/12: Patient remains intubated and on mechanical ventilation. She is off sedation and not currently following directions well. Possible extubation today. She is able to nod that she is not having any pain. She has been afebrile and vital signs are stable. White count is 11.4 and hemoglobin 7.2, sodium is improved to 124, BUN 21 and creatinine 1.11. Patient is followed by multiple consultants. 05/13: Patient was successfully extubated yesterday afternoon. She is currently on Plavix and aspirin. Hemoglobin this morning is 6.5 and she is scheduled for 1 unit packed RBCs. Her vital signs have been stable, she is on 2 L nasal cannula. Patient will be transferred out of ICU today. She ate about 50% of her breakfast this morning. Dr. Martinez is planning to contact radiation oncology for treatment for her bladder cancer. 05/14: Patient remains in intensive care unit waiting for a bed. Blood pressure has been stable. Patient is currently on room air. She received Lasix 40 mg IV this morning. She did have a small amount of bleeding from the vaginal area. Pleitez catheter is blood tinged without clots with sufficient output. JOSE J drain has sanguinous drainage less than 100 mL over the past 24 hours. Patient did have a bowel movement yesterday which was liquid and C. difficile toxin was negative. Patient has not required pain medication. Dr. Martinez has discussed this case with Dr. Chiu radiation oncology and plan is to delay radiation for about 6 weeks to allow bladder to heal. Nephrology has ordered Ferrlecit for 3 doses starting today. Hemoglobin is 9.8, BUN 22 and creatinine 1.1. 05/15: Patient is on the cardiac stepdown unit. Hemoglobin is 9.2, BUN 25 creatinine 1.09. Blood sugars are running between 122 and 186. Chest x-ray shows resolution of previously seen pulmonary vascular congestion improvement of the trace bilateral pleural effusions. Last night, patient pulled out her urethral catheter and now there is more blood coming from the suprapubic catheter. Dr. Chávez continues to follow. Patient is on a 1500 mL fluid restriction. He has ordered magnesium replacement today. Physical therapy is recommending subacute rehab arrangements are being made for [facility]. Dr. Cihu has evaluated the patient with plan for radiation in 4-6 weeks and follow-up with him in 3 weeks. Patient is pleasantly confused and requesting to be discharged home. Her son is at the bedside and has been updated.. Review Of Systems: Unable to assess due to patient's mental status, underlying dementia Objective - Vital Signs Vital signs: Vital Signs Temp 98.1 F 05/15/18 08:00 Pulse 80 05/15/18 08:00 Resp 16 05/15/18 08:00 BP 137/52 05/15/18 08:00 Pulse Ox 92 L 05/15/18 08:00 Intake & Output 05/14/18 05/15/18 05/15/18 18:59 06:59 18:59 Intake Total 280 180 240 Output Total 2476 2100 Balance -2196 -1920 240 Weight 85.5 kg Intake: IV 50 0.9 normal saline 50 Oral 230 180 240 Output: Drainage 100 Abdomen 100 Urine 2375 2100 Stool 1 Other: Voiding Method Indwelling Catheter Indwelling Catheter ABP, PAP, CO, CI - Last Documented Arterial Blood Pressure 112/37 - Exam General appearance: cooperative. Patient is sitting up in a recliner and appears to be comfortable - EENT Eyes: anicteric sclerae, EOMI, PERRLA, dentition normal, normal appearance ENT: hearing grossly normal, NA/AT, normal oropharynx - Neck Neck: normal ROM - Respiratory Respiratory: bilateral: CTA, negative: diminished, dullness, rales - Cardiovascular Rhythm: regular Heart sounds: normal: S1, S2. bus driver/monitor is normal sinus rhythm. Abnormal Heart Sounds: systolic murmur - Gastrointestinal General gastrointestinal: normal bowel sounds, tenderness (None), suprapubic catheter shows hematuria small amount of sediment. Dressing in place to her abdominal wound. JOSE J drain with sanguinous return. - Integumentary Integumentary: normal, normal turgor - Neurologic Neurologic: CNII-XII intact - Musculoskeletal Musculoskeletal: gait normal, strength equal bilaterally - Psychiatric Psychiatric: A&O x's 3, appropriate affect, intact judgment & insight - Labs CBC & Chem 7: 05/15/18 06:29 05/15/18 06:29 Labs: Abnormal Lab Results - Last 24 Hours (Table) 05/14/18 05/14/18 05/14/18 Range/Units 09:12 09:12 11:54 RBC 3.15 L (3.80-5.40) m/uL Hgb 9.8 L D (11.4-16.0) gm/dL Hct 28.5 L (34.0-46.0) % Lymphocytes # 0.6 L (1.0-4.8) k/uL Sodium 131 L (137-145) mmol/L Chloride 97 L (98-107) mmol/L BUN 22 H (7-17) mg/dL Creatinine 1.10 H (0.52-1.04) mg/dL Glucose 176 H (74-99) mg/dL POC Glucose (mg/dL) 214 H (75-99) mg/dL Calcium (8.4-10.2) mg/dL Magnesium (1.6-2.3) mg/dL 05/14/18 05/14/18 05/15/18 Range/Units 17:01 20:25 05:58 RBC (3.80-5.40) m/uL Hgb (11.4-16.0) gm/dL Hct (34.0-46.0) % Lymphocytes # (1.0-4.8) k/uL Sodium (137-145) mmol/L Chloride (98-107) mmol/L BUN (7-17) mg/dL Creatinine (0.52-1.04) mg/dL Glucose (74-99) mg/dL POC Glucose (mg/dL) 186 H 187 H 138 H (75-99) mg/dL Calcium (8.4-10.2) mg/dL Magnesium (1.6-2.3) mg/dL 05/15/18 05/15/18 Range/Units 06:29 06:29 RBC 3.08 L (3.80-5.40) m/uL Hgb 9.2 L (11.4-16.0) gm/dL Hct 27.3 L (34.0-46.0) % Lymphocytes # (1.0-4.8) k/uL Sodium 132 L (137-145) mmol/L Chloride 97 L (98-107) mmol/L BUN 25 H (7-17) mg/dL Creatinine 1.09 H (0.52-1.04) mg/dL Glucose 122 H (74-99) mg/dL POC Glucose (mg/dL) (75-99) mg/dL Calcium 8.3 L (8.4-10.2) mg/dL Magnesium 1.3 L (1.6-2.3) mg/dL Microbiology - Last 24 Hours (Table) 05/13/18 15:45 Catheter Tip Culture - Preliminary Catheter Tip 05/11/18 20:12 Gram Stain - Final Sputum Sputum Culture - Final Assessment and Plan Plan: 1. Acute inferior wall STEMI involving RCA requiring drug-eluting stent to 99% of stenosis down to 0% successful stenting, performed 05/06/2018 Dr. Marie patient currently is on Lipitor 80 mg daily, Tenormin 25 mg daily, Plavix 75 mg daily aspirin 81 mg daily 2. Diabetes mellitus type 2 insulin requiring, uncontrolled with hypoglycemia. Lantus discontinued continue NovoLog scale, hemoglobin A1c is 7.0. 3. Bladder cancer newly diagnosed presenting with cross hematuria, [facility] is anticipating bladder surgery around May 2018, Dr. Roberts, [phone] Blount consult appreciated. Cystoscopy, evacuation of clot , transverse resection of bladder tumor, exploratory laparotomy with closure of bladder laceration performed. 4. Hypertensive Vascular disease. Continue atenolol. 5. Dysthymia, Zoloft 50 mg daily 6. Neurocognitive deficits with memory loss, on Namenda 10 mg PAD, patient is not on any anticholinesterase medication. 7. Insomnia, schedule melatonin 6 mg at bedtime. 8. GI prophylaxis with Pepcid 9. DVT prophylaxis, high risk known bladder cancer, with SCDs 10. Chronic blood loss anemia hemoglobin is 9.0, iron studies will be done 11. Acute kidney injury secondary to ATN secondary to hemodynamic instability and contrast-induced nephropathy with CKD stage III nephrotoxins will be avoided , consult with nephrology appreciated 12. Hyponatremia acute, secondary to large volume bladder irrigation and Hyzaar. Hyzaar was discontinued. Nephrology consult appreciated. 13. Hypomagnesemia, replacement with monitoring 14. Mild metabolic acidosis, and is not on metformin prior to admission, continue fluids for hydration 15. Restless leg, on Mirapex 0.125 mg daily when necessary, iron studies to be obtained mite replacement 16. Possible postoperative ileus related to decreased bowel sounds and decreased NG tube output, improved Discharge plan: [facility] and plan of care have been directed as dictated by the signing physician. Kylah Begum nurse practitioner acting as scribe for signing physician.
[2018-05-15] MEDS: MAGNESIUM SULFATE-D5W PMX 1 GM in DEXTROSE/WATER 1 100ML.BAG IVPB SCH ×3 (12:48→16:01)
[2018-05-15] MEDS: SERTRALINE 50 MG TAB PO SCH (12:50)
--- NOTE | 2018-05-15 13:20 | P.PN ---
Subjective Progress Note Date: 05/15/18 This is a 78-year-old female with history of acute inferior wall microinfarction who had stent placement the right coronary artery. Subsequently she underwent bladder surgery for bladder CA associated with a severe hematuria. She was intubated in the intensive care unit, now being followed on the telemetry unit today. She does have a sitter at bedside she is mildly confused. Continues to have hematuria. Blood pressure 136/50 with a heart rate in the 80s. White blood cell count 6.9, hemoglobin 9.2, platelet count 269. Sodium 132, potassium 4.0, BUN 25, creatinine 1.0. From the heart standpoint patient has been stable, she denies any chest discomfort. She continues to be on dual antiplatelet therapy. Objective - Vital Signs Vital signs: Vital Signs Temp 98.1 F 05/15/18 08:00 Pulse 80 05/15/18 08:00 Resp 16 05/15/18 08:00 BP 137/52 05/15/18 08:00 Pulse Ox 92 L 05/15/18 08:00 Intake & Output 05/14/18 05/15/18 05/15/18 18:59 06:59 18:59 Intake Total 280 180 240 Output Total 2476 2100 1 Balance -2196 -1920 239 Weight 85.5 kg Intake: IV 50 0.9 normal saline 50 Oral 230 180 240 Output: Drainage 100 Abdomen 100 Urine 2375 2100 Stool 1 1 Other: Voiding Method Indwelling Catheter Indwelling Catheter Indwelling Catheter ABP, PAP, CO, CI - Last Documented Arterial Blood Pressure 112/37 - Exam GENERAL EXAM: Patient is extubated. Alert. No acute distress. HEENT: Normocephalic. Normal reaction of pupils, equal size, normal range of extraocular motion. No erythema or exudates in the throat. NECK: No masses, no nuchal rigidity. CHEST: No chest wall deformity. LUNGS:. We will initiate a change HEART: S1 and S2 normal with no audible mumurs or gallops. Regular rhythm, femorals equal on both sides.. ABDOMEN: Soft SKIN: No rashes CENTRAL NERVOUS SYSTEM: Unresponsive EXTREMITIES: No cyanosis, clubbing or edema. - Labs CBC & Chem 7: 05/15/18 06:29 05/15/18 06:29 Labs: Abnormal Lab Results - Last 24 Hours (Table) 11/05/14/18 05/15/18 Range/Units 17:01 20:25 05:58 RBC (3.80-5.40) m/uL Hgb (11.4-16.0) gm/dL Hct (34.0-46.0) % Sodium (137-145) mmol/L Chloride (98-107) mmol/L BUN (7-17) mg/dL Creatinine (0.52-1.04) mg/dL Glucose (74-99) mg/dL POC Glucose (mg/dL) 186 H 187 H 138 H (75-99) mg/dL Calcium (8.4-10.2) mg/dL Magnesium (1.6-2.3) mg/dL 05/15/18 05/15/18 05/15/18 Range/Units 06:29 06:29 11:22 RBC 3.08 L (3.80-5.40) m/uL Hgb 9.2 L (11.4-16.0) gm/dL Hct 27.3 L (34.0-46.0) % Sodium 132 L (137-145) mmol/L Chloride 97 L (98-107) mmol/L BUN 25 H (7-17) mg/dL Creatinine 1.09 H (0.52-1.04) mg/dL Glucose 122 H (74-99) mg/dL POC Glucose (mg/dL) 132 H (75-99) mg/dL Calcium 8.3 L (8.4-10.2) mg/dL Magnesium 1.3 L (1.6-2.3) mg/dL Microbiology - Last 24 Hours (Table) 05/13/18 15:45 Catheter Tip Culture - Preliminary Catheter Tip 05/11/18 20:12 Gram Stain - Final Sputum Sputum Culture - Final Assessment and Plan Plan: Assessment and Plan: 1. Acute inferior wall STEMI status post RCA stent 2. Diabetes mellitus type 2 3. Bladder cancer newly diagnosed presenting with cross hematuria, [facility] is anticipating bladder surgery around May 2018 4. Hypertensive 5. Dysthymia 6. Neurocognitive deficits with memory loss 7. Insomnia 9. Chronic blood loss anemia hemoglobin is 9.0, iron studies will be done 10. Acute kidney injury secondary 12. Hyponatremia acute 13. Hypomagnesemia 14. Mild metabolic acidosis 15. Restless leg 16. Possible postoperative ileus 17. Hyperlipidemia Plan From cardiology's perspective, patient said cardiac status is stable. We will continue current medications. DNP note has been reviewed, I agree with a documented findings and plan of care. Patient was seen and examined.
--- NOTE | 2018-05-15 14:40 | P.PN ---
Subjective Progress Note Date: 05/15/18 Principal diagnosis: ST elevation myocardial infarction, respiratory failure, multiple surgical procedures Progress note dated 05/12/2018 This is a 78-year-old female was admitted back on May [address] segment elevation myocardial infarction. She went to the catheterization laboratory and a stent placed in the right coronary artery. She was intubated on May 09 having had to go to the operating room. The patient underwent a cystoscopy, evacuation of blood clots from the bladder, transurethral resection of the urethra, bladder tumor evaluation, exploratory laparotomy She is postop day #3. The patient remains on the mechanical ventilator in the volume assist control mode rate is 16, tidal volume 450, FiO2 40% which can be turned down to 30% PEEP of 5. Arterial blood gases show a PaO2 of 160, a PaCO2 31 and a pH of 7.41. The patient's currently on propofol, and 35 mcg/kg/m, fentanyl drip at 50 mics per hour saline at 10 mL an hour. Note feeds as yet. The patient will have a daily eruption of sedation and a spontaneous breathing trial this morning. Yesterday, she apparently did 2 hours on PSV and CPAP. The nurse feels that she might be ready for extubation. Chest x-ray shows a small left pleural effusion and some left basilar atelectasis or infiltrate as well as some minimal infiltrate or atelectasis at the right lung base. Microbiologic studies are negative. Progress note dated 05/13/2018 This is a 78-year-old female who was admitted back on May [address] segment elevation myocardial infarction. She went to the [facility] and had a stent placed in the right coronary artery. She was intubated on May 09 having had to go to the operating room for a cystoscopy, evacuation of blood clots in the bladder, transurethral resection, exploratory laparotomy. Yesterday, the patient looks good. She is postop day #4. While on the ventilator yesterday, we held sedation turned off the fentanyl drip and held the patient's propofol. She had excellent weaning parameters and she was extubated successfully yesterday. Currently, the patient's on O2 at 2 L by nasal cannula and receiving IV at KVO. Her hemoglobin this morning was 6.5 and she received 1 unit of packed red blood cells. The patient is very stable. She is awake and alert. She denies any complaints including pain. Her current microbiologic studies are negative. Chest x-ray shows a persistent area of left lower lobe infiltrate/atelectasis. White count is 9.9, hemoglobin 6.5, hematocrit 18.9 and platelet count was normal. Sodium 131, potassium 3.8 is 100 CO2 26 anion gap 5 BUN 20 and creatinine 1.07. Progress note dated 05/14/2018 78-year-old female admitted back on May [address] segment elevation myocardial infarction. She went to the catheterization laboratory and had a stent placed in her right coronary artery. Subsequent to that, she went to the operating room and had a cystoscopy evacuation of blood clots from the ladder transurethral resection exploratory laparotomy and some other surgical procedures performed. She was intubated obviously for the procedure and came back to the ICU on the ventilator. She is postop day #5. 2 days ago, she was extubated. Currently she is doing well. She is on 2 L nasal cannula and a saline IV at 10 mL an hour. I've asked the nurses to place an incentive spirometer in the room and teach the patient how to do it. We are going to give her Lasix 40 mg IV push today because her chest x-ray shows some slight fluid overload. Other than that, she's doing relatively well. She has been a bit sleepy but today she's feeling better. Her microbiologic studies are thus far all negative. I don't see any new laboratory data from today. Progress note dated 05/15/2018 78-year-old female admitted back on May [address] segment elevation myocardial infarction. She had a stent placed in the right coronary artery after going to the catheterization laboratory. Subsequent to that, she went to the operating room a few days later for cystoscopy, evacuation of blood clots from the bladder, transurethral resection, exploratory laparotomy and some other surgical procedures. She was intubated for the procedure and came back to the ICU on the mechanical ventilator. Today is postop #6. About 3 days ago , she was extubated. She was moved to the floor yesterday. She's currently on a couple liters of nasal oxygen. She's doing well. She denies any shortness of breath or difficulty breathing. She is not coughing or wheezing. The patient states that she's feeling much better. I told her that after today, we would likely not see her unless she has another issue. Labs, x-rays and medications are reviewed. Objective - Vital Signs Vital signs: Vital Signs Temp 98.1 F 05/15/18 08:00 Pulse 80 05/15/18 08:00 Resp 16 05/15/18 12:00 BP 137/52 05/15/18 08:00 Pulse Ox 92 L 05/15/18 08:00 Intake & Output 05/14/18 05/15/18 05/15/18 18:59 06:59 18:59 Intake Total 280 180 600 Output Total 2476 2100 1 Balance -2196 -1920 599 Weight 85.5 kg Intake: IV 50 0.9 normal saline 50 Oral 230 180 600 Output: Drainage 100 Abdomen 100 Urine 2375 2100 Stool 1 1 Other: Voiding Method Indwelling Catheter Indwelling Catheter Indwelling Catheter # Bowel Movements 1 ABP, PAP, CO, CI - Last Documented Arterial Blood Pressure 112/37 - Exam No acute distress, on room air, alert and awake, without any obvious distress. The patient is not complaining of any pain. HEENT examination is grossly unremarkable. Mucous membranes are moist. Neck supple. Full range of motion. No adenopathy thyromegaly or neck vein distention. Cardiovascular examination reveals regular rhythm rate. S1-S2 normal. No S3 or S4. No discernible murmur noted. Heart sounds are distant. Lungs reveal mostly clear breath sounds. A few scattered rhonchi are noted. She has some mild bibasilar crackles today. Breath sounds equal bilaterally. No wheezes appreciated.. Abdomen is relatively soft without bowel sounds. Extremities are intact. No cyanosis clubbing or edema. Skin is without rash or lesion. Neurologic examination is brief and appears nonfocal. - Labs CBC & Chem 7: 05/15/18 06:29 05/15/18 06:29 Labs: Abnormal Lab Results - Last 24 Hours (Table) 05/14/18 05/14/18 05/15/18 Range/Units 17:01 20:25 05:58 RBC (3.80-5.40) m/uL Hgb (11.4-16.0) gm/dL Hct (34.0-46.0) % Sodium (137-145) mmol/L Chloride (98-107) mmol/L BUN (7-17) mg/dL Creatinine (0.52-1.04) mg/dL Glucose (74-99) mg/dL POC Glucose (mg/dL) 186 H 187 H 138 H (75-99) mg/dL Calcium (8.4-10.2) mg/dL Magnesium (1.6-2.3) mg/dL 05/15/18 05/15/18 05/15/18 Range/Units 06:29 06:29 11:22 RBC 3.08 L (3.80-5.40) m/uL Hgb 9.2 L (11.4-16.0) gm/dL Hct 27.3 L (34.0-46.0) % Sodium 132 L (137-145) mmol/L Chloride 97 L (98-107) mmol/L BUN 25 H (7-17) mg/dL Creatinine 1.09 H (0.52-1.04) mg/dL Glucose 122 H (74-99) mg/dL POC Glucose (mg/dL) 132 H (75-99) mg/dL Calcium 8.3 L (8.4-10.2) mg/dL Magnesium 1.3 L (1.6-2.3) mg/dL Microbiology - Last 24 Hours (Table) 05/13/18 15:45 Catheter Tip Culture - Preliminary Catheter Tip Assessment and Plan Assessment: Assessment Postop day #6, status post cystoscopy, evacuation of clots, TUR, an exploratory laparotomy. Status post intubation with mechanical ventilation and subsequent extubation on May 12. Routine postoperative ventilator management. Status post ST segment elevation myocardial infarction, with stent to the RCA Recent acute inferior wall ST segment elevation myocardial infarction Acute blood loss secondary to hematuria from known bladder cancer History of hypertension History of insomnia Hyponatremia Stage III chronic kidney disease Plan: Plan dated 05/12/2018 I've asked the nurses to stop the propofol and fentanyl and give the patient a daily eruption of sedation with a spontaneous breathing trial. Apparently yesterday, she did reasonably well. We will drop the FiO2 down from 40-30%. Chest x-ray and blood gases are reviewed. Microbiologic studies thus far negative. White count 11.4, hemoglobin 7.2, hematocrit 20.7 and platelet count 197,000. Sodium 124 potassium 3.7 chloride is 97 CO2 19 and anion gap is 8 BUN 21 creatinine 1.11. Chest x-ray, labs and all medications are reviewed. I'm hopeful that we can move this patient towards extubation. Additional recommendations and suggestions are forthcoming. Critical care time 35 minutes Plan dated 05/13/2018 Currently, the patient is receiving supplemental oxygen at 2 L/m by nasal cannula. The patient will receive 1 unit of PRBCs today for hemoglobin of 6.5. The patient could be transferred to [address] [place] [address]. The patient denies any respiratory difficulties difficulty breathing chest pain chest discomfort or any other complaints at this time. Labs are reviewed. Medications and x-rays are both reviewed. Additional recommendations and suggestions are forthcoming. The patient seems be relatively stable postextubation. Prognosis is guarded. Surgery will follow along of course. Critical care time 33 minutes Plan dated 05/14/2018 The patient's doing reasonably well. She remains on O2 at 2 L. She's getting a saline IV at 10 mL an hour. I've asked the nurses to really focus on incentive spirometry with this patient. In addition, because chest x-ray shows some mild fluid overload, I wanted to get a one-time dose of Lasix 40 mg IV push. Microbiologic studies were negative. The patient is doing relatively well. She might be able to be transferred out of the ICU today. We'll follow her closely. We'll make additional recommendations were warranted. Prognosis is guarded. Critical care time 32 minutes Plan dated 05/15/2018 The patient's doing much better. Currently not on any supplemental oxygen. Chest x-ray shows improvement of the pulmonary vascular status of the patient. She has very small/trace bilateral effusions. Laboratory data includes a white count of 6.9, hemoglobin 9.2 hematocrit 27.3 and platelet count that is normal. Sodium 132 potassium 4 chloride is 97 CO2 27 anion gap is 8 BUN 25 and creatinine 1.09 respectively. The patient remains on Tylenol, aspirin, atenolol , Lipitor, Plavix, Pepcid, Lasix, Mackey, Dilaudid, insulin, Maalox, melatonin, Namenda, Narcan, nitroglycerin, potassium replacement, Zoloft and her basic IV. Additional recommendations and suggestions are forthcoming. We will recommend ongoing cough and deep breathing and clearing of secretions. In addition, we recommend hourly use of the incentive spirometer. We'll see as needed. Diagnoses is guarded. Time with Patient: Less than 30
[2018-05-15 16:50] LABS: Glucose,Whole Blood 184 mg/dL (75-99)
[2018-05-15 21:14] LABS: Glucose,Whole Blood 136 mg/dL (75-99)
[2018-05-15] MEDS: MELATONIN 3 MG TABLET PO SCH (22:10)
[2018-05-15] MEDS: ATORVASTATIN 80 MG TAB PO SCH (22:10)
[2018-05-16] MEDS: INSULIN ASPART 100 UNIT/ML 1 ML 10 ML VIAL SQ SCH ×4 (05:51→21:15)
[2018-05-16 05:52] LABS: Glucose,Whole Blood 126 mg/dL (75-99)
[2018-05-16 06:50] LABS: Calcium 8.4 mg/dL (8.4-10.2); Magnesium 1.7 mg/dL (1.6-2.3)
[2018-05-16] MEDS ORDERED: FUROSEMIDE 10 MG/ML 2 ML VIAL IV ONE (07:52)
--- NOTE | 2018-05-16 07:53 | P.PN ---
Subjective Patient is seen in follow-up for acute kidney injury and hyponatremia. Sodium level dropped to 130 today. Patient has history of bladder cancer and is status post TUR-BT with exploratory laparotomy on May 09. She also had a myocardial infarction and had a stent placed to the RCA on May 06. She is nonoliguric. She has a suprapubic catheter in place. Currently resting in bed. Denies chest pain or shortness of breath. She received a blood transfusion on May 13. Renal function stable. Patient is confused this morning. Vital signs are stable. General: The patient appeared well nourished and normally developed. HEENT: Head exam is unremarkable. Neck is without jugular venous distension. LUNGS: Breath sounds decreased. HEART: Rate and Rhythm are regular. First and second heart sounds normal. No murmurs, rubs or gallops. ABDOMEN: Abdominal exam reveals normal bowel sounds. Non-tender and non- distended. No evidence of peritonitis. EXTREMITITES: No clubbing, cyanosis, or edema. Hematuria noted. Objective - Vital Signs Vital signs: Vital Signs Temp 98.9 F 05/15/18 20:00 Pulse 85 05/16/18 04:00 Resp 18 05/16/18 04:00 BP 130/86 05/16/18 04:00 Pulse Ox 95 05/16/18 04:00 Intake & Output 05/15/18 05/16/18 05/16/18 18:59 06:59 18:59 Intake Total 840 Output Total 2 1950 Balance 838 -1950 Weight 85.5 kg 80.6 kg Intake: Oral 840 Output: Drainage 25 Abdomen 25 Urine 1925 Stool 2 Other: Voiding Method Indwelling Catheter Indwelling Catheter # Bowel Movements 1 ABP, PAP, CO, CI - Last Documented Arterial Blood Pressure 112/37 - Labs CBC & Chem 7: 05/15/18 06:29 05/16/18 05:40 Labs: Abnormal Lab Results - Last 24 Hours (Table) 05/15/18 05/15/18 05/15/18 Range/Units 06:29 11:22 16:46 Sodium 132 L (137-145) mmol/L Chloride 97 L (98-107) mmol/L BUN 25 H (7-17) mg/dL Creatinine 1.09 H (0.52-1.04) mg/dL Glucose 122 H (74-99) mg/dL POC Glucose (mg/dL) 132 H 184 H (75-99) mg/dL Calcium 8.3 L (8.4-10.2) mg/dL Magnesium 1.3 L (1.6-2.3) mg/dL 05/15/18 05/16/18 05/16/18 Range/Units 21:12 05:40 05:51 Sodium 130 L (137-145) mmol/L Chloride 95 L (98-107) mmol/L BUN 24 H (7-17) mg/dL Creatinine 1.06 H (0.52-1.04) mg/dL Glucose 117 H (74-99) mg/dL POC Glucose (mg/dL) 136 H 126 H (75-99) mg/dL Calcium (8.4-10.2) mg/dL Magnesium (1.6-2.3) mg/dL Microbiology - Last 24 Hours (Table) 05/13/18 15:45 Catheter Tip Culture - Final Catheter Tip Assessment and Plan Plan: Assessment: 1. Hyponatremia secondary to large volume bladder irrigation as well as Hyzaar. Sodium level dropped to 130 today. Patient is also on Zoloft which can induce SIADH. 2. STEMI status post cardiac catheterization with a stent to the RCA on May 14. 3. Bladder cancer status post TUR-BT with exploratory laparotomy and closure of bladder rupture on May 09. 4. Metabolic acidosis secondary to acute kidney injury and IV fluids. Better. 5. Diabetes mellitus. 6. Acute kidney injury secondary to ATN secondary to hemodynamic instability and contrast-induced nephropathy. Renal function stable. 7. Acute anemia status post blood transfusion this admission. Better. Severe iron deficiency noted. 8. Fluid overload. Chest x-ray suggestive of CHF with vascular congestion and pleural effusion. Improved. 9. Hypomagnesemia secondary to diuresis. Improved post replacement. Plan: Remains off all IV fluids. Continue to hold Hyzaar for now. Encouraged oral intake. 1500 mL fluid restriction. IV Ferrlecit 3 doses. Third dose today. Lasix 20 mg IV once today. Repeat electrolytes in the morning.
[2018-05-16] MEDS: FAMOTIDINE 20 MG TAB PO SCH (09:37)
[2018-05-16] MEDS: CLOPIDOGREL 75 MG TAB PO SCH (09:37)
[2018-05-16] MEDS: ATENOLOL 25 MG TAB PO SCH (09:37)
[2018-05-16] MEDS: MEMANTINE 10 MG TAB PO SCH ×2 (09:37→20:45)
[2018-05-16] MEDS: ASPIRIN 81 MG PO SCH (09:37)
[2018-05-16] MEDS: PRAMIPEXOLE 0.25 MG TAB PO SCH ×2 (09:37→20:45)
[2018-05-16] MEDS: SERTRALINE 50 MG TAB PO SCH (09:37)
[2018-05-16] MEDS: SODIUM FERRIC GLUCONAT-SUCROSE 125 MG in SODIUM CHLORIDE 0.9% 100 ML IVPB SCH (09:45)
--- NOTE | 2018-05-16 10:34 | P.PN ---
Subjective Progress Note Date: 05/16/18 This is a 78-year-old female with history of acute inferior wall microinfarction who had stent placement the right coronary artery. Subsequently she underwent bladder surgery for bladder CA associated with a severe hematuria. Since surgery. Patient has been intubated. Patient also developed problems with hyponatremia. She is anemic with hemoglobin of 7.1. Her blood pressure is running on the low side. We'll go discontinue Hyzaar. We 'll continue beta isaura as tolerated. She will also continue aspirin and Plavix because she had a stent recently. Apparently attempts are being made to extubate her today if possible. From cardiac standpoint, we'll continue current medical therapy. 05/13/2018: This is 78-year-old female who had a stent placement of the RCA in the setting of acute myocardial infarction, had surgery for bleeding and perforation and carcinoma of the bladder. Patient was extubated yesterday. Patient is alert. Seems to be confused about the events that happened in the hospital. She was asked if she had stents twice are once. She was informed that this study was done only once. She denies any chest pain or shortness of breath. Doesn't appear to be in acute distress. Her hemoglobin has dropped below 7 g. Patient is maintaining sinus rhythm. Cardiac as patient is stable. We'll continue current medical therapy with dual antiplatelet agents, beta blockers and also statins. Bleeding issues to be addressed by urology. 05/14/2018: Patient is alert and oriented and doesn't appear to be in acute distress. Her bleeding has slowed down. She did receive one unit of blood transfusion yesterday. Her chest x-ray showed some evidence of congestion and pleural effusion. She got one dose of IV Lasix today. Denies any chest pain or shortness of breath. Lungs show some diminished breath sounds at bases. Heart is regular. We'll continue current medical therapy. If necessary we'll add we will Lasix. Her echocardiogram showed normal LV function with mild hypokinesis of the inferior wall without any valvular abnormalities. We'll also try to increase activity as recommended by urology. 05/15/2018: This patient is alert but disoriented. Doesn't appear to be in acute distress. Patient is confused. Vital signs are stable. Still has bloody urine. This is being managed by urology. From Cardec standpoint patient seems stable. We'll continue current medical therapy Objective - Vital Signs Vital signs: Vital Signs Temp 98.2 F 05/16/18 08:00 Pulse 95 05/16/18 08:00 Resp 16 05/16/18 08:00 BP 140/70 05/16/18 08:00 Pulse Ox 95 05/16/18 08:00 Intake & Output 05/15/18 05/16/18 05/16/18 18:59 06:59 18:59 Intake Total 840 240 Output Total 2 1950 15 Balance 838 -1950 225 Weight 85.5 kg 80.6 kg Intake: Oral 840 240 Output: Drainage 25 15 Abdomen 25 15 Urine 1925 Stool 2 Other: Voiding Method Indwelling Catheter Indwelling Catheter Indwelling Catheter # Bowel Movements 1 ABP, PAP, CO, CI - Last Documented Arterial Blood Pressure 112/37 - Exam GENERAL EXAM: Patient is extubated. Alert. No acute distress. HEENT: Normocephalic. Normal reaction of pupils, equal size, normal range of extraocular motion. No erythema or exudates in the throat. NECK: No masses, no nuchal rigidity. CHEST: No chest wall deformity. LUNGS:. We will initiate a change HEART: S1 and S2 normal with no audible mumurs or gallops. Regular rhythm, femorals equal on both sides.. ABDOMEN: Soft SKIN: No rashes CENTRAL NERVOUS SYSTEM: Unresponsive EXTREMITIES: No cyanosis, clubbing or edema. - Labs CBC & Chem 7: 05/15/18 06:29 05/16/18 05:40 Labs: Abnormal Lab Results - Last 24 Hours (Table) 05/15/18 05/15/18 05/15/18 Range/Units 11:22 16:46 21:12 Sodium (137-145) mmol/L Chloride (98-107) mmol/L BUN (7-17) mg/dL Creatinine (0.52-1.04) mg/dL Glucose (74-99) mg/dL POC Glucose (mg/dL) 132 H 184 H 136 H (75-99) mg/dL 05/16/18 05/16/18 Range/Units 05:40 05:51 Sodium 130 L (137-145) mmol/L Chloride 95 L (98-107) mmol/L BUN 24 H (7-17) mg/dL Creatinine 1.06 H (0.52-1.04) mg/dL Glucose 117 H (74-99) mg/dL POC Glucose (mg/dL) 126 H (75-99) mg/dL Microbiology - Last 24 Hours (Table) 05/13/18 15:45 Catheter Tip Culture - Final Catheter Tip Assessment and Plan (1) Hyponatremia Current Visit: Yes Status: Acute Code(s): E87.1 - HYPO-OSMOLALITY AND HYPONATREMIA SNOMED Code(s): 78387087 (2) Malignant neoplasm of bladder Current Visit: Yes Status: Acute Code(s): C67.9 - MALIGNANT NEOPLASM OF BLADDER, UNSPECIFIED SNOMED Code(s): 937157810 (3) ST elevation myocardial infarction (STEMI) Current Visit: Yes Status: Acute Code(s): I21.3 - ST ELEVATION (STEMI) MYOCARDIAL INFARCTION OF UNSP SITE SNOMED Code(s): 391032877 (4) Bladder cancer Current Visit: Yes Status: Acute Code(s): C67.9 - MALIGNANT NEOPLASM OF BLADDER, UNSPECIFIED SNOMED Code(s): 075007730 Plan: Cardiac-monroy, patient is stable. We'll continue current medical therapy
--- NOTE | 2018-05-16 10:36 | P.PN ---
Subjective Progress Note Date: 05/16/18 This is a 78-year-old female with history of acute inferior wall microinfarction who had stent placement the right coronary artery. Subsequently she underwent bladder surgery for bladder CA associated with a severe hematuria. Since surgery. Patient has been intubated. Patient also developed problems with hyponatremia. She is anemic with hemoglobin of 7.1. Her blood pressure is running on the low side. We'll go discontinue Hyzaar. We 'll continue beta isaura as tolerated. She will also continue aspirin and Plavix because she had a stent recently. Apparently attempts are being made to extubate her today if possible. From cardiac standpoint, we'll continue current medical therapy. 05/13/2018: This is 78-year-old female who had a stent placement of the RCA in the setting of acute myocardial infarction, had surgery for bleeding and perforation and carcinoma of the bladder. Patient was extubated yesterday. Patient is alert. Seems to be confused about the events that happened in the hospital. She was asked if she had stents twice are once. She was informed that this study was done only once. She denies any chest pain or shortness of breath. Doesn't appear to be in acute distress. Her hemoglobin has dropped below 7 g. Patient is maintaining sinus rhythm. Cardiac as patient is stable. We'll continue current medical therapy with dual antiplatelet agents, beta blockers and also statins. Bleeding issues to be addressed by urology. 05/14/2018: Patient is alert and oriented and doesn't appear to be in acute distress. Her bleeding has slowed down. She did receive one unit of blood transfusion yesterday. Her chest x-ray showed some evidence of congestion and pleural effusion. She got one dose of IV Lasix today. Denies any chest pain or shortness of breath. Lungs show some diminished breath sounds at bases. Heart is regular. We'll continue current medical therapy. If necessary we'll add we will Lasix. Her echocardiogram showed normal LV function with mild hypokinesis of the inferior wall without any valvular abnormalities. We'll also try to increase activity as recommended by urology. 05/15/2018: This patient is alert but disoriented. Doesn't appear to be in acute distress. Patient is confused. Vital signs are stable. Still has bloody urine. This is being managed by urology. From Cardec standpoint patient seems stable. We'll continue current medical therapy. 05/16/2018: This patient with history of inferior wall myocardial infarction and stent placement to the right coronary artery. Subsequently developed urinary bleeding and ended up having cardiac surgery. Patient still has some blood in the urine. She is getting iron infusion. She is also has hyponatremia which is being addressed by automobile assembler. From Cardec standpoint patient denies any chest pain or shortness of breath. She is pleasantly confused. We'll continue current medical therapy Objective - Vital Signs Vital signs: Vital Signs Temp 98.2 F 05/16/18 08:00 Pulse 95 05/16/18 08:00 Resp 16 05/16/18 08:00 BP 140/70 05/16/18 08:00 Pulse Ox 95 05/16/18 08:00 Intake & Output 05/15/18 05/16/18 05/16/18 18:59 06:59 18:59 Intake Total 840 240 Output Total 2 1950 15 Balance 838 -1950 225 Weight 85.5 kg 80.6 kg Intake: Oral 840 240 Output: Drainage 25 15 Abdomen 25 15 Urine 1925 Stool 2 Other: Voiding Method Indwelling Catheter Indwelling Catheter Indwelling Catheter # Bowel Movements 1 ABP, PAP, CO, CI - Last Documented Arterial Blood Pressure 112/37 - Exam GENERAL EXAM: Patient is extubated. Alert. No acute distress. Pleasantly confused HEENT: Normocephalic. Normal reaction of pupils, equal size, normal range of extraocular motion. No erythema or exudates in the throat. NECK: No masses, no nuchal rigidity. CHEST: No chest wall deformity. LUNGS:. We will initiate a change HEART: S1 and S2 normal with no audible mumurs or gallops. Regular rhythm, femorals equal on both sides.. ABDOMEN: Soft SKIN: No rashes CENTRAL NERVOUS SYSTEM: Unresponsive EXTREMITIES: No cyanosis, clubbing or edema. - Labs CBC & Chem 7: 05/15/18 06:29 05/16/18 05:40 Labs: Abnormal Lab Results - Last 24 Hours (Table) 05/15/18 05/15/18 05/15/18 Range/Units 11:22 16:46 21:12 Sodium (137-145) mmol/L Chloride (98-107) mmol/L BUN (7-17) mg/dL Creatinine (0.52-1.04) mg/dL Glucose (74-99) mg/dL POC Glucose (mg/dL) 132 H 184 H 136 H (75-99) mg/dL 05/16/18 05/16/18 Range/Units 05:40 05:51 Sodium 130 L (137-145) mmol/L Chloride 95 L (98-107) mmol/L BUN 24 H (7-17) mg/dL Creatinine 1.06 H (0.52-1.04) mg/dL Glucose 117 H (74-99) mg/dL POC Glucose (mg/dL) 126 H (75-99) mg/dL Microbiology - Last 24 Hours (Table) 05/13/18 15:45 Catheter Tip Culture - Final Catheter Tip Assessment and Plan (1) Hyponatremia Current Visit: Yes Status: Acute Code(s): E87.1 - HYPO-OSMOLALITY AND HYPONATREMIA SNOMED Code(s): 75652385 (2) Malignant neoplasm of bladder Current Visit: Yes Status: Acute Code(s): C67.9 - MALIGNANT NEOPLASM OF BLADDER, UNSPECIFIED SNOMED Code(s): 068617459 (3) ST elevation myocardial infarction (STEMI) Current Visit: Yes Status: Acute Code(s): I21.3 - ST ELEVATION (STEMI) MYOCARDIAL INFARCTION OF UNSP SITE SNOMED Code(s): 412587286 (4) Bladder cancer Current Visit: Yes Status: Acute Code(s): C67.9 - MALIGNANT NEOPLASM OF BLADDER, UNSPECIFIED SNOMED Code(s): 215260917 Plan: Cardiac this patient is stable. We'll continue dual antiplatelet agents. She is getting iron infusion. We'll follow her hemoglobin
[2018-05-16 10:51] LABS: HCT 26.7 % (34.0-46.0); HGB 9.1 gm/dL (11.4-16.0); MCH 30.7 pg (25.0-35.0); MCHC 33.9 g/dL (31.0-37.0); MCV 90.6 fL (80.0-100.0); Mean Platelet Volume 6.8; Platelet Count 267 k/uL (150-450); RBC 2.95 m/uL (3.80-5.40); RDW 14.5 % (11.5-15.5)
[2018-05-16 11:57] LABS: Glucose,Whole Blood 165 mg/dL (75-99)
--- NOTE | 2018-05-16 13:09 | P.DS ---
Providers Date of admission: 05/06/18 00:59 Expected date of discharge: 05/16/18 Attending physician: Fina Briseno Consults: 05/06/18 00:55 Consult Physician Stat Consulting Provider: Cardiology Tasha Consult Reason/Comments: STEMI ACTIVATION COMPLETE Do you want consulting provider notified?: Yes 05/06/18 02:36 Consult Physician Routine Consulting Provider: Cardiology Tasha Consult Reason/Comments: Post Interventional patient Do you want consulting provider notified?: Already Contacted 05/07/18 19:16 Consult Physician Urgent Consulting Provider: Abdoulaye Fitch Consult Reason/Comments: worsening hematuria, known bladder cancer Do you want consulting provider notified?: Yes Primary care physician: [facility] Course: This is a 78-year-old pleasant female patient of Dr. Joshua Cerna underlying history of dementia, diabetes mellitus type 2, hypertension, hyperlipidemia, who is currently a very poor historian. Patient provided some limited history that says chest discomfort and left shoulder discomfort, requiring ER evaluation. Patient was resting at that time, she denies any shortness of breath or diaphoresis no nausea or vomiting, no lightheadedness or dizziness, no syncope. EMS was called in, EKG was performed that shows acute ST segment elevation in the inferior leads, and was sent in directly to the cardiac cytogenetics laboratory manager and went for an emergent cardiac cath requiring drug-eluting stent involving the RCA from a 99% stenosis to 0% stenosis post-stenting. Patient was chest pain-free after the procedure, currently now requiring double antiplatelet platelet agents. Patient was last seen by Dr. Lewis 04/08/2018 for diabetic foot [id number] encounter for diabetic shoes Particular history is positive for hematuria on seen by Dr. Martinez and was referred to [facility] Dr. Roberts [phone] for which bladder surgery would be performed in May 2018, for the suspicious mass highly suggestive of malignancy Echocardiogram performed 05/06/2018 normal sinus rhythm, EF 50-55%, basal inferolateral hypokinesia, thickened aortic valve, mild aortic regurgitation, mild TR, mild MR, right ventricular systolic pressure of 16, aortic root size is normal, normal pericardium Cardiac cath report 05/06/2018, Dr. Katz, showed right coronary artery need stenosis from a 99% to 0% using Xience drug-eluting stent 3.0 x 18 mm, through the right radial artery approach. Findings shows RCA distally with mild disease , PDA and PLV branches have mild disease, left main normal, left circumflex complex normal, however there is 30% to 40% occlusive disease after the first OM branch, proximal LAD mild disease, Patient was comfortable when seen in the presence of the son who is POA, full discussion was made regarding the intervention for the STEMI as well as the need to delay the bladder surgery as it would require treatment of the cardiac occlusive disease first and was recommended to have cardiac clearance to be off the double antiplatelet agents prior to the anticipated bladder surgery 05/07: Patient will be transferred out of the intensive care unit today to selective care. She denies having any chest pain or shortness of breath. She does continue to have small amount of bright red blood in her urine but no clots , positive sediment. She has been encouraged to drink a glass of water by her physician in [facility]. Ferrlecit will be ordered. 05/08: Patient is resting comfortably up in a chair. She is denying having any chest pain or shortness of breath. Patient continues to have bright red blood in her urine. She had a large amount in the evening with 6-7 large clots and a another episode in the morning without any clots. Recently hemoglobin this morning was 8. Patient was seen by urology a three-way Pleitez catheter was placed in manually irrigated with removal of 1 clots. Continues bladder irrigation will continue with manual irrigation of the catheter as needed. 05/09: This morning, patient has hemoglobin of 6.71 unit packed RBCs will be ordered. Dr. Blount has evaluated with plan for cystoscopy and fulguration today. She had Pleitez catheter placed yesterday for retention and has noted hematuria which has been present since admission. Patient denies any chest pain , no abdominal pain, no lightheadedness. BUN 25 and creatinine 1.23 and sodium 125. Blood sugars have been labile with range of 78-223. Vital signs are stable, afebrile. 05/10: Patient is currently on vent after cystoscopy, transurethral resection of bladder tumor, exploratory laparotomy with closure of bladder laceration. Continuous bladder irrigation into suprapubic tube and throughout the urethral catheter. Shows a return with faint of pink tinged urine. Patient is hemodynamically stable. She appears to be resting comfortably. The CBC 14.4, hemoglobin 7.8, sodium 118, chloride 91. We will obtain osmolarity, sodium level and a urine random sodium. 05/11: Patient continues to be on vent after cystoscopy, transurethral resection of bladder tumor, exploratory laparotomy with closure of bladder laceration. Continuous bladder irrigation into the super pubic tube and throughout the urethral catheter continues at a slower rate. The return still has a faint pink tinged urine. Patient continues to be hemodynamically stable. She appears to be resting comfortably. Nephrology consult completed IV fluids have been stopped. Sodium has improved to 120. We will stop the Zoloft follow nephrology's recommendations. Patient has not had any bowel movements and a small amount of output from her NG tube. We will obtain an abdominal x- ray. 05/12: Patient remains intubated and on mechanical ventilation. She is off sedation and not currently following directions well. Possible extubation today. She is able to nod that she is not having any pain. She has been afebrile and vital signs are stable. White count is 11.4 and hemoglobin 7.2, sodium is improved to 124, BUN 21 and creatinine 1.11. Patient is followed by multiple consultants. 05/13: Patient was successfully extubated yesterday afternoon. She is currently on Plavix and aspirin. Hemoglobin this morning is 6.5 and she is scheduled for 1 unit packed RBCs. Her vital signs have been stable, she is on 2 L nasal cannula. Patient will be transferred out of ICU today. She ate about 50% of her breakfast this morning. Dr. Martinez is planning to contact radiation oncology for treatment for her bladder cancer. 05/14: Patient remains in intensive care unit waiting for a bed. Blood pressure has been stable. Patient is currently on room air. She received Lasix 40 mg IV this morning. She did have a small amount of bleeding from the vaginal area. Pleitez catheter is blood tinged without clots with sufficient output. JOSE J drain has sanguinous drainage less than 100 mL over the past 24 hours. Patient did have a bowel movement yesterday which was liquid and C. difficile toxin was negative. Patient has not required pain medication. Dr. Martinez has discussed this case with Dr. Chiu radiation oncology and plan is to delay radiation for about 6 weeks to allow bladder to heal. Nephrology has ordered Ferrlecit for 3 doses starting today. Hemoglobin is 9.8, BUN 22 and creatinine 1.1. 05/15: Patient is on the cardiac stepdown unit. Hemoglobin is 9.2, BUN 25 creatinine 1.09. Blood sugars are running between 122 and 186. Chest x-ray shows resolution of previously seen pulmonary vascular congestion improvement of the trace bilateral pleural effusions. Last night, patient pulled out her urethral catheter and now there is more blood coming from the suprapubic catheter. Dr. Chávez continues to follow. Patient is on a 1500 mL fluid restriction. He has ordered magnesium replacement today. Physical therapy is recommending subacute rehab arrangements are being made for [facility]. Dr. Chiu has evaluated the patient with plan for radiation in 4-6 weeks and follow-up with him in 3 weeks. Patient is pleasantly confused and requesting to be discharged home. Her son is at the bedside and has been updated.. 05/16: Patient is sitting up in a recliner and is pleasantly confused. This morning, Pleitez bag is draining clear george urine. BUN 24 and creatinine 1.06. In yesterday's note, Dr. Martinez mention some debris moving her drain and will await his decision on this. Hemoglobin today is 9.9. No plan for any transfusion. Discharge diagnoses: 1. Acute inferior wall STEMI involving RCA requiring drug-eluting stent to 99% of stenosis down to 0% successful stenting, performed 05/06/2018 Dr. Marie 2. Diabetes mellitus type 2 insulin requiring, uncontrolled with hypoglycemia. 3. Bladder cancer newly diagnosed presenting with cross hematuria, [facility] is anticipating bladder surgery around May 2018, Dr. Roberts, urologist. Status post Cystoscopy, evacuation of clot, transverse resection of bladder tumor, exploratory laparotomy with closure of bladder laceration performed during this hospitalization. 4. Hypertensive Vascular disease. 5. Dysthymia 6. Neurocognitive deficits with memory loss secondary to dementia 7. Insomnia 8. GI prophylaxis 9. DVT prophylaxis 10. Acute and chronic blood loss anemia status post transfusion of 4 units of packed RBCs, postop complication not expected 11. Acute kidney injury secondary to ATN secondary to hemodynamic instability and contrast-induced nephropathy with CKD stage III 12. Hyponatremia acute, secondary to large volume bladder irrigation and Hyzaar and SIADH. Hyzaar was discontinued. 13. Hypomagnesemia 14. Mild metabolic acidosis 15. Restless leg 16. Possible postoperative ileus, resolved Discharge plan: [facility] Impression and plan of care have been directed as dictated by the signing physician. Kylah Begum nurse practitioner acting as scribe for signing physician. Patient Condition at Discharge: Good Plan - Discharge Summary New Discharge Prescriptions: New Aspirin 81 mg PO DAILY chew Atorvastatin [Lipitor] 80 mg PO HS tab Clopidogrel [Plavix] 75 mg PO DAILY tab HYDROcodone/APAP 5-325MG [[place] 5-325] 1 each PO Q8HR PRN #9 tab PRN Reason: Pain Insulin Aspart [NovoLOG (formulary)] 0 unit SQ ACHS vial Melatonin 6 mg PO HS tablet Nitroglycerin Sl Tabs [Nitrostat] 0.4 mg SUBLINGUAL Q5M PRN tab PRN Reason: Chest Pain Sodium Chloride Tab 1 gm PO DAILY #30 tablet Continue Atenolol [Tenormin] 25 mg PO DAILY Famotidine [Pepcid] 20 mg PO BID Sertraline [Zoloft] 50 mg PO DAILY Pramipexole [Mirapex] 0.125 mg PO DAILY PRN PRN Reason: RESTLESS LEGS Memantine [Namenda] 10 mg PO BID Discontinued Pravastatin Sodium [Pravachol] 40 mg PO HS Insulin Glargine,Hum.rec.anlog [Lantus Solostar] 55 unit SQ DAILY Losartan/Hydrochlorothiazide [Hyzaar 100-25 Tablet] 1 tab PO DAILY Ginkgo Biloba Sweeny Extract [Ginkgo] 60 mg PO BID Turmeric Root Extract [Turmeric] 500 mg PO DAILY Ubidecarenone [Co Q-10] 200 mg PO DAILY Discharge Medication List Atenolol [Tenormin] 25 mg PO DAILY 09/17/14 [History] Famotidine [Pepcid] 20 mg PO BID 05/06/18 [History] Memantine [Namenda] 10 mg PO BID 05/06/18 [History] Pramipexole [Mirapex] 0.125 mg PO DAILY PRN 05/06/18 [History] Sertraline [Zoloft] 50 mg PO DAILY 05/06/18 [History] Aspirin 81 mg PO DAILY chew 05/16/18 [Rx] Atorvastatin [Lipitor] 80 mg PO HS tab 05/16/18 [Rx] Clopidogrel [Plavix] 75 mg PO DAILY tab 05/16/18 [Rx] HYDROcodone/APAP 5-325MG [[place] 5-325] 1 each PO Q8HR PRN #9 tab 05/16/18 [Rx] Insulin Aspart [NovoLOG (formulary)] 0 unit SQ ACHS vial 05/16/18 [Rx] Melatonin 6 mg PO HS tablet 05/16/18 [Rx] Nitroglycerin Sl Tabs [Nitrostat] 0.4 mg SUBLINGUAL Q5M PRN tab 05/16/18 [Rx] Sodium Chloride Tab 1 gm PO DAILY #30 tablet 05/16/18 [Rx] Follow up Appointment(s)/Referral(s): [facility] [Provider Group] - 1 Week (Dr. Tate Office will call with appointment date and time. ) Sudeep Blount MD [STAFF PHYSICIAN] - 1 Week Praneeth Lewis MD [Primary Care Provider] - 1 Week (after discharge from [facility]) Yariel Chiu MD [STAFF PHYSICIAN] - 06/02/18 9:30 am (Appt on Saturday,06/02 at 9:30 am at [facility]. Call if need to change appt to [phone]. ) [facility] [place], [NON-STAFF] - Patient Instructions/Handouts: *Surgery [facility] - After Heart Catheterization - Program Or Project Administrator Instructions, Left Heart Catheterization (DC) Discharge Disposition: TRANSFER TO SNF/ECF
--- NOTE | 2018-05-16 14:19 | P.PN ---
Subjective Progress Note Date: 05/16/18 The patient continues to do well. She is to be discharged to a rehab facility today. The drain is removed. She'll be discharged with a suprapubic tube. She will return the office in one week at which time we will probably remove the suprapubic tube. Objective - Vital Signs Vital signs: Vital Signs Temp 98.3 F 05/16/18 11:24 Pulse 79 05/16/18 11:24 Resp 16 05/16/18 11:53 BP 162/67 05/16/18 11:24 Pulse Ox 98 05/16/18 11:24 Intake & Output 05/15/18 05/16/18 05/16/18 18:59 06:59 18:59 Intake Total 840 480 Output Total 2 1950 1115 Balance 838 1950 -635 Weight 85.5 kg 80.6 kg Intake: Oral 840 480 Output: Drainage 25 15 Abdomen 25 15 Urine 1925 1100 Stool 2 Other: Voiding Method Indwelling Catheter Indwelling Catheter Indwelling Catheter # Bowel Movements 1 ABP, PAP, CO, CI - Last Documented Arterial Blood Pressure 112/37 - Labs CBC & Chem 7: 05/16/18 05:40 05/16/18 05:40 Labs: Abnormal Lab Results - Last 24 Hours (Table) 05/15/18 05/15/18 05/16/18 Range/Units 16:46 21:12 05:40 RBC (3.80-5.40) m/uL Hgb (11.4-16.0) gm/dL Hct (34.0-46.0) % Sodium 130 L (137-145) mmol/L Chloride 95 L (98-107) mmol/L BUN 24 H (7-17) mg/dL Creatinine 1.06 H (0.52-1.04) mg/dL Glucose 117 H (74-99) mg/dL POC Glucose (mg/dL) 184 H 136 H (75-99) mg/dL 05/16/18 05/16/18 05/16/18 Range/Units 05:40 05:51 11:56 RBC 2.95 L (3.80-5.40) m/uL Hgb 9.1 L (11.4-16.0) gm/dL Hct 26.7 L (34.0-46.0) % Sodium (137-145) mmol/L Chloride (98-107) mmol/L BUN (7-17) mg/dL Creatinine (0.52-1.04) mg/dL Glucose (74-99) mg/dL POC Glucose (mg/dL) 126 H 165 H (75-99) mg/dL Microbiology - Last 24 Hours (Table) 05/13/18 15:45 Catheter Tip Culture - Final Catheter Tip
[2018-05-16 16:48] LABS: Glucose,Whole Blood 139 mg/dL (75-99)
[2018-05-16] MEDS: ATORVASTATIN 80 MG TAB PO SCH (20:44)
[2018-05-16] MEDS: MELATONIN 3 MG TABLET PO SCH (20:44)
[2018-05-16] MEDS: HYDROcodone/APAP 5-325MG 1 EACH TAB PO PRN (20:44)
[2018-05-16 21:12] LABS: Glucose,Whole Blood 117 mg/dL (75-99)
[2018-05-17 06:08] LABS: Glucose,Whole Blood 111 mg/dL (75-99)
[2018-05-17] MEDS: INSULIN ASPART 100 UNIT/ML 1 ML 10 ML VIAL SQ SCH ×4 (06:17→20:39)
--- NOTE | 2018-05-17 08:03 | P.PN ---
Subjective Progress Note Date: 05/16/18 This is a 78-year-old pleasant female patient of Dr. Joshua Cerna underlying history of dementia, diabetes mellitus type 2, hypertension, hyperlipidemia, who is currently a very poor historian. Patient provided some limited history that says chest discomfort and left shoulder discomfort, requiring ER evaluation. Patient was resting at that time, she denies any shortness of breath or diaphoresis no nausea or vomiting, no lightheadedness or dizziness, no syncope. EMS was called in, EKG was performed that shows acute ST segment elevation in the inferior leads, and was sent in directly to the cardiac clinical genetics laboratory chief and went for an emergent cardiac cath requiring drug-eluting stent involving the RCA from a 99% stenosis to 0% stenosis post-stenting. Patient was chest pain-free after the procedure, currently now requiring double antiplatelet platelet agents. Patient was last seen by Dr. Lewis 04/08/2018 for diabetic foot [id number] encounter for diabetic shoes Particular history is positive for hematuria on seen by Dr. Martinez and was referred to [facility] Dr. Roberts [phone] for which bladder surgery would be performed in May 2018, for the suspicious mass highly suggestive of malignancy Echocardiogram performed 05/06/2018 normal sinus rhythm, EF 50-55%, basal inferolateral hypokinesia, thickened aortic valve, mild aortic regurgitation, mild TR, mild MR, right ventricular systolic pressure of 16, aortic root size is normal, normal pericardium Cardiac cath report 05/06/2018, Dr. Katz, showed right coronary artery need stenosis from a 99% to 0% using Xience drug-eluting stent 3.0 x 18 mm, through the right radial artery approach. Findings shows RCA distally with mild disease , PDA and PLV branches have mild disease, left main normal, left circumflex complex normal, however there is 30% to 40% occlusive disease after the first OM branch, proximal LAD mild disease, Patient was comfortable when seen in the presence of the son who is POA, full discussion was made regarding the intervention for the STEMI as well as the need to delay the bladder surgery as it would require treatment of the cardiac occlusive disease first and was recommended to have cardiac clearance to be off the double antiplatelet agents prior to the anticipated bladder surgery 05/07: Patient will be transferred out of the intensive care unit today to selective care. She denies having any chest pain or shortness of breath. She does continue to have small amount of bright red blood in her urine but no clots , positive sediment. She has been encouraged to drink a glass of water by her physician in [facility]. Ferrlecit will be ordered. 05/08: Patient is resting comfortably up in a chair. She is denying having any chest pain or shortness of breath. Patient continues to have bright red blood in her urine. She had a large amount in the evening with 6-7 large clots and a another episode in the morning without any clots. Recently hemoglobin this morning was 8. Patient was seen by urology a three-way Pleitez catheter was placed in manually irrigated with removal of 1 clots. Continues bladder irrigation will continue with manual irrigation of the catheter as needed. 05/09: This morning, patient has hemoglobin of 6.71 unit packed RBCs will be ordered. Dr. Blount has evaluated with plan for cystoscopy and fulguration today. She had Pleitez catheter placed yesterday for retention and has noted hematuria which has been present since admission. Patient denies any chest pain , no abdominal pain, no lightheadedness. BUN 25 and creatinine 1.23 and sodium 125. Blood sugars have been labile with range of 78-223. Vital signs are stable, afebrile. 05/10: Patient is currently on vent after cystoscopy, transurethral resection of bladder tumor, exploratory laparotomy with closure of bladder laceration. Continuous bladder irrigation into suprapubic tube and throughout the urethral catheter. Shows a return with faint of pink tinged urine. Patient is hemodynamically stable. She appears to be resting comfortably. The CBC 14.4, hemoglobin 7.8, sodium 118, chloride 91. We will obtain osmolarity, sodium level and a urine random sodium. 05/11: Patient continues to be on vent after cystoscopy, transurethral resection of bladder tumor, exploratory laparotomy with closure of bladder laceration. Continuous bladder irrigation into the super pubic tube and throughout the urethral catheter continues at a slower rate. The return still has a faint pink tinged urine. Patient continues to be hemodynamically stable. She appears to be resting comfortably. Nephrology consult completed IV fluids have been stopped. Sodium has improved to 120. We will stop the Zoloft follow nephrology's recommendations. Patient has not had any bowel movements and a small amount of output from her NG tube. We will obtain an abdominal x- ray. 05/12: Patient remains intubated and on mechanical ventilation. She is off sedation and not currently following directions well. Possible extubation today. She is able to nod that she is not having any pain. She has been afebrile and vital signs are stable. White count is 11.4 and hemoglobin 7.2, sodium is improved to 124, BUN 21 and creatinine 1.11. Patient is followed by multiple consultants. 05/13: Patient was successfully extubated yesterday afternoon. She is currently on Plavix and aspirin. Hemoglobin this morning is 6.5 and she is scheduled for 1 unit packed RBCs. Her vital signs have been stable, she is on 2 L nasal cannula. Patient will be transferred out of ICU today. She ate about 50% of her breakfast this morning. Dr. Martinez is planning to contact radiation oncology for treatment for her bladder cancer. 05/14: Patient remains in intensive care unit waiting for a bed. Blood pressure has been stable. Patient is currently on room air. She received Lasix 40 mg IV this morning. She did have a small amount of bleeding from the vaginal area. Pleitez catheter is blood tinged without clots with sufficient output. JOSE J drain has sanguinous drainage less than 100 mL over the past 24 hours. Patient did have a bowel movement yesterday which was liquid and C. difficile toxin was negative. Patient has not required pain medication. Dr. Martinez has discussed this case with Dr. Chiu radiation oncology and plan is to delay radiation for about 6 weeks to allow bladder to heal. Nephrology has ordered Ferrlecit for 3 doses starting today. Hemoglobin is 9.8, BUN 22 and creatinine 1.1. 05/15: Patient is on the cardiac stepdown unit. Hemoglobin is 9.2, BUN 25 creatinine 1.09. Blood sugars are running between 122 and 186. Chest x-ray shows resolution of previously seen pulmonary vascular congestion improvement of the trace bilateral pleural effusions. Last night, patient pulled out her urethral catheter and now there is more blood coming from the suprapubic catheter. Dr. Chávez continues to follow. Patient is on a 1500 mL fluid restriction. He has ordered magnesium replacement today. Physical therapy is recommending subacute rehab arrangements are being made for [facility]. Dr. Chiu has evaluated the patient with plan for radiation in 4-6 weeks and follow-up with him in 3 weeks. Patient is pleasantly confused and requesting to be discharged home. Her son is at the bedside and has been updated.. 05/16: Patient is sitting up in a recliner and is pleasantly confused. This morning, Pleitez bag is draining clear george urine. BUN 24 and creatinine 1.06. In yesterday's note, Dr. Martinez mention some debris moving her drain and will await his decision on this. Hemoglobin today is 9.9. No plan for any transfusion. The patient was prepared for discharge to [facility] but [facility] requires plan from oncology and diagnoses codes from oncology before they will accept patient. Anticipate patient will be here over the weekend and discharged on Saturday. Review Of Systems: Unable to assess due to patient's mental status, underlying dementia Objective - Vital Signs Vital signs: Vital Signs Temp 98.2 F 05/16/18 08:00 Pulse 95 05/16/18 08:00 Resp 16 05/16/18 08:00 BP 140/70 05/16/18 08:00 Pulse Ox 95 05/16/18 08:00 Intake & Output 05/15/18 05/16/18 05/16/18 18:59 06:59 18:59 Intake Total 840 240 Output Total 2 1950 15 Balance 838 -1950 225 Weight 85.5 kg 80.6 kg Intake: Oral 840 240 Output: Drainage 25 15 Abdomen 25 15 Urine 1925 Stool 2 Other: Voiding Method Indwelling Catheter Indwelling Catheter Indwelling Catheter # Bowel Movements 1 ABP, PAP, CO, CI - Last Documented Arterial Blood Pressure 112/37 - Exam General appearance: cooperative. Patient is sitting up in a recliner and appears to be comfortable - EENT Eyes: anicteric sclerae, EOMI, PERRLA, dentition normal, normal appearance ENT: hearing grossly normal, NA/AT, normal oropharynx - Neck Neck: normal ROM - Respiratory Respiratory: bilateral: CTA, negative: diminished, dullness, rales - Cardiovascular Rhythm: regular Heart sounds: normal: S1, S2. lunchroom monitor is normal sinus rhythm. Abnormal Heart Sounds: systolic murmur - Gastrointestinal General gastrointestinal: normal bowel sounds, tenderness (None), suprapubic catheter shows hematuria small amount of sediment. Dressing in place to her abdominal wound. JOSE J drain with sanguinous return. - Integumentary Integumentary: normal, normal turgor - Neurologic Neurologic: CNII-XII intact - Musculoskeletal Musculoskeletal: gait normal, strength equal bilaterally - Psychiatric Psychiatric: A&O x's 3, appropriate affect, intact judgment & insight - Labs CBC & Chem 7: 05/16/18 05:40 05/16/18 05:40 Labs: Abnormal Lab Results - Last 24 Hours (Table) 05/15/18 05/15/18 05/15/18 Range/Units 11:22 16:46 21:12 Sodium (137-145) mmol/L Chloride (98-107) mmol/L BUN (7-17) mg/dL Creatinine (0.52-1.04) mg/dL Glucose (74-99) mg/dL POC Glucose (mg/dL) 132 H 184 H 136 H (75-99) mg/dL 05/16/18 05/16/18 Range/Units 05:40 05:51 Sodium 130 L (137-145) mmol/L Chloride 95 L (98-107) mmol/L BUN 24 H (7-17) mg/dL Creatinine 1.06 H (0.52-1.04) mg/dL Glucose 117 H (74-99) mg/dL POC Glucose (mg/dL) 126 H (75-99) mg/dL Microbiology - Last 24 Hours (Table) 05/13/18 15:45 Catheter Tip Culture - Final Catheter Tip Assessment and Plan Plan: 1. Acute inferior wall STEMI involving RCA requiring drug-eluting stent to 99% of stenosis down to 0% successful stenting, performed 05/06/2018 Dr. Marie patient currently is on Lipitor 80 mg daily, Tenormin 25 mg daily, Plavix 75 mg daily aspirin 81 mg daily 2. Diabetes mellitus type 2 insulin requiring, uncontrolled with hypoglycemia. Lantus discontinued continue NovoLog scale, hemoglobin A1c is 7.0. 3. Bladder cancer newly diagnosed presenting with cross hematuria, [facility] is anticipating bladder surgery around May 2018, Dr. Roberts, urologist. Dr. Blount consult appreciated. Cystoscopy, evacuation of clot , transverse resection of bladder tumor, exploratory laparotomy with closure of bladder laceration performed. 4. Hypertensive Vascular disease. Continue atenolol. 5. Dysthymia, Zoloft 50 mg daily 6. Neurocognitive deficits with memory loss, on Namenda 10 mg PAD, patient is not on any anticholinesterase medication. 7. Insomnia, schedule melatonin 6 mg at bedtime. 8. GI prophylaxis with Pepcid 9. DVT prophylaxis, high risk known bladder cancer, with SCDs 10. Chronic blood loss anemia hemoglobin is 9.0, iron studies will be done 11. Acute kidney injury secondary to ATN secondary to hemodynamic instability and contrast-induced nephropathy with CKD stage III nephrotoxins will be avoided , consult with nephrology appreciated 12. Hyponatremia acute, secondary to large volume bladder irrigation and Hyzaar. Hyzaar was discontinued. Nephrology consult appreciated. 13. Hypomagnesemia, replacement with monitoring 14. Mild metabolic acidosis, and is not on metformin prior to admission, continue fluids for hydration 15. Restless leg, on Mirapex 0.125 mg daily when necessary, iron studies to be obtained mite replacement 16. Possible postoperative ileus related to decreased bowel sounds and decreased NG tube output, improved Discharge plan: [facility] and plan of care have been directed as dictated by the signing physician. Kylah Begum nurse practitioner acting as scribe for signing physician.
[2018-05-17 08:15] LABS: Calcium 8.4 mg/dL (8.4-10.2); Magnesium 1.4 mg/dL (1.6-2.3); Potassium 3.7 mmol/L (3.5-5.1)
[2018-05-17 08:22] LABS: HGB 9.9 gm/dL (11.4-16.0); MCHC 35.2 g/dL (31.0-37.0); MCV 88.1 fL (80.0-100.0); Mean Platelet Volume 6.3; Platelet Count 292 k/uL (150-450); RBC 3.18 m/uL (3.80-5.40); RDW 14.5 % (11.5-15.5); WBC 9.6 k/uL (3.8-10.6)
--- NOTE | 2018-05-17 10:32 | P.PN ---
Subjective Progress Note Date: 05/17/18 This is a 78-year-old pleasant female patient of Dr. Joshua Cerna underlying history of dementia, diabetes mellitus type 2, hypertension, hyperlipidemia, who is currently a very poor historian. Patient provided some limited history that says chest discomfort and left shoulder discomfort, requiring ER evaluation. Patient was resting at that time, she denies any shortness of breath or diaphoresis no nausea or vomiting, no lightheadedness or dizziness, no syncope. EMS was called in, EKG was performed that shows acute ST segment elevation in the inferior leads, and was sent in directly to the cardiac powerhouse laborer and went for an emergent cardiac cath requiring drug-eluting stent involving the RCA from a 99% stenosis to 0% stenosis post-stenting. Patient was chest pain-free after the procedure, currently now requiring double antiplatelet platelet agents. Patient was last seen by Dr. Lewis 04/08/2018 for diabetic foot [id number] encounter for diabetic shoes Particular history is positive for hematuria on seen by Dr. Martinez and was referred to [facility] Dr. Roberts [phone] for which bladder surgery would be performed in May 2018, for the suspicious mass highly suggestive of malignancy Echocardiogram performed 05/06/2018 normal sinus rhythm, EF 50-55%, basal inferolateral hypokinesia, thickened aortic valve, mild aortic regurgitation, mild TR, mild MR, right ventricular systolic pressure of 16, aortic root size is normal, normal pericardium Cardiac cath report 05/06/2018, Dr. Katz, showed right coronary artery need stenosis from a 99% to 0% using Xience drug-eluting stent 3.0 x 18 mm, through the right radial artery approach. Findings shows RCA distally with mild disease , PDA and PLV branches have mild disease, left main normal, left circumflex complex normal, however there is 30% to 40% occlusive disease after the first OM branch, proximal LAD mild disease, Patient was comfortable when seen in the presence of the son who is POA, full discussion was made regarding the intervention for the STEMI as well as the need to delay the bladder surgery as it would require treatment of the cardiac occlusive disease first and was recommended to have cardiac clearance to be off the double antiplatelet agents prior to the anticipated bladder surgery 05/07: Patient will be transferred out of the intensive care unit today to selective care. She denies having any chest pain or shortness of breath. She does continue to have small amount of bright red blood in her urine but no clots , positive sediment. She has been encouraged to drink a glass of water by her physician in [facility]. Ferrlecit will be ordered. 05/08: Patient is resting comfortably up in a chair. She is denying having any chest pain or shortness of breath. Patient continues to have bright red blood in her urine. She had a large amount in the evening with 6-7 large clots and a another episode in the morning without any clots. Recently hemoglobin this morning was 8. Patient was seen by urology a three-way Pleitez catheter was placed in manually irrigated with removal of 1 clots. Continues bladder irrigation will continue with manual irrigation of the catheter as needed. 05/09: This morning, patient has hemoglobin of 6.71 unit packed RBCs will be ordered. Dr. Blount has evaluated with plan for cystoscopy and fulguration today. She had Pleitez catheter placed yesterday for retention and has noted hematuria which has been present since admission. Patient denies any chest pain , no abdominal pain, no lightheadedness. BUN 25 and creatinine 1.23 and sodium 125. Blood sugars have been labile with range of 78-223. Vital signs are stable, afebrile. 05/10: Patient is currently on vent after cystoscopy, transurethral resection of bladder tumor, exploratory laparotomy with closure of bladder laceration. Continuous bladder irrigation into suprapubic tube and throughout the urethral catheter. Shows a return with faint of pink tinged urine. Patient is hemodynamically stable. She appears to be resting comfortably. The CBC 14.4, hemoglobin 7.8, sodium 118, chloride 91. We will obtain osmolarity, sodium level and a urine random sodium. 05/11: Patient continues to be on vent after cystoscopy, transurethral resection of bladder tumor, exploratory laparotomy with closure of bladder laceration. Continuous bladder irrigation into the super pubic tube and throughout the urethral catheter continues at a slower rate. The return still has a faint pink tinged urine. Patient continues to be hemodynamically stable. She appears to be resting comfortably. Nephrology consult completed IV fluids have been stopped. Sodium has improved to 120. We will stop the Zoloft follow nephrology's recommendations. Patient has not had any bowel movements and a small amount of output from her NG tube. We will obtain an abdominal x- ray. 05/12: Patient remains intubated and on mechanical ventilation. She is off sedation and not currently following directions well. Possible extubation today. She is able to nod that she is not having any pain. She has been afebrile and vital signs are stable. White count is 11.4 and hemoglobin 7.2, sodium is improved to 124, BUN 21 and creatinine 1.11. Patient is followed by multiple consultants. 05/13: Patient was successfully extubated yesterday afternoon. She is currently on Plavix and aspirin. Hemoglobin this morning is 6.5 and she is scheduled for 1 unit packed RBCs. Her vital signs have been stable, she is on 2 L nasal cannula. Patient will be transferred out of ICU today. She ate about 50% of her breakfast this morning. Dr. Martinez is planning to contact radiation oncology for treatment for her bladder cancer. 05/14: Patient remains in intensive care unit waiting for a bed. Blood pressure has been stable. Patient is currently on room air. She received Lasix 40 mg IV this morning. She did have a small amount of bleeding from the vaginal area. Pleitez catheter is blood tinged without clots with sufficient output. JOSE J drain has sanguinous drainage less than 100 mL over the past 24 hours. Patient did have a bowel movement yesterday which was liquid and C. difficile toxin was negative. Patient has not required pain medication. Dr. Martinez has discussed this case with Dr. Chiu radiation oncology and plan is to delay radiation for about 6 weeks to allow bladder to heal. Nephrology has ordered Ferrlecit for 3 doses starting today. Hemoglobin is 9.8, BUN 22 and creatinine 1.1. 05/15: Patient is on the cardiac stepdown unit. Hemoglobin is 9.2, BUN 25 creatinine 1.09. Blood sugars are running between 122 and 186. Chest x-ray shows resolution of previously seen pulmonary vascular congestion improvement of the trace bilateral pleural effusions. Last night, patient pulled out her urethral catheter and now there is more blood coming from the suprapubic catheter. Dr. Chávez continues to follow. Patient is on a 1500 mL fluid restriction. He has ordered magnesium replacement today. Physical therapy is recommending subacute rehab arrangements are being made for [facility]. Dr. Chiu has evaluated the patient with plan for radiation in 4-6 weeks and follow-up with him in 3 weeks. Patient is pleasantly confused and requesting to be discharged home. Her son is at the bedside and has been updated.. 05/16: Patient is sitting up in a recliner and is pleasantly confused. This morning, Pleitez bag is draining clear george urine. BUN 24 and creatinine 1.06. In yesterday's note, Dr. Martinez mention some debris moving her drain and will await his decision on this. Hemoglobin today is 9.9. No plan for any transfusion. The patient was prepared for discharge to [facility] but [facility] requires plan from oncology and diagnoses codes from oncology before they will accept patient. Anticipate patient will be here over the weekend and discharged on Saturday. 05/17: The group home is waiting for information from oncology regarding plan of care and diagnoses codes. Patient is pleasantly confused and denies any new complaints. According to nursing, patient has been eating and drinking okay. No problems with diarrhea. Catheter noted to have small clots in blood-tinged urine from the suprapubic catheter. Anticipate discharge on Saturday to subacute rehab. Review Of Systems: Unable to assess due to patient's mental status, underlying dementia Objective - Vital Signs Vital signs: Vital Signs Temp 97.3 F L 05/17/18 00:00 Pulse 70 05/17/18 04:00 Resp 16 05/17/18 04:00 BP 132/79 05/17/18 04:00 Pulse Ox 97 05/17/18 04:00 Intake & Output 05/16/18 05/17/18 05/17/18 18:59 06:59 18:59 Intake Total 480 Output Total 1765 3 Balance -1285 -3 Weight 78 kg Intake: Oral 480 Output: Drainage 15 Abdomen 15 Urine 1750 0 Stool 3 Other: Voiding Method Indwelling Catheter Indwelling Catheter # Voids 0 ABP, PAP, CO, CI - Last Documented Arterial Blood Pressure 112/37 - Exam General appearance: cooperative. Patient is in bed and appears to be comfortable - EENT Eyes: anicteric sclerae, EOMI, PERRLA, dentition normal, normal appearance ENT: hearing grossly normal, NA/AT, normal oropharynx - Neck Neck: normal ROM - Respiratory Respiratory: bilateral: CTA, negative: diminished, dullness, rales - Cardiovascular Rhythm: regular Heart sounds: normal: S1, S2. oracle database analyst is normal sinus rhythm. Abnormal Heart Sounds: systolic murmur - Gastrointestinal General gastrointestinal: normal bowel sounds, tenderness (None), suprapubic catheter shows hematuria small amount of sediment. Dressing in place to her abdominal wound. JOSE J drain with sanguinous return. - Integumentary Integumentary: normal, normal turgor - Neurologic Neurologic: CNII-XII intact - Musculoskeletal Musculoskeletal: gait normal, strength equal bilaterally - Psychiatric Psychiatric: A&O x's 3, appropriate affect, intact judgment & insight - Labs CBC & Chem 7: 05/17/18 07:31 05/17/18 07:31 Labs: Abnormal Lab Results - Last 24 Hours (Table) 05/16/18 05/16/18 05/16/18 Range/Units 05:40 11:56 16:47 RBC 2.95 L (3.80-5.40) m/uL Hgb 9.1 L (11.4-16.0) gm/dL Hct 26.7 L (34.0-46.0) % POC Glucose (mg/dL) 165 H 139 H (75-99) mg/dL 05/16/18 05/17/18 Range/Units 21:10 06:06 RBC (3.80-5.40) m/uL Hgb (11.4-16.0) gm/dL Hct (34.0-46.0) % POC Glucose (mg/dL) 117 H 111 H (75-99) mg/dL Assessment and Plan Plan: 1. Acute inferior wall STEMI involving RCA requiring drug-eluting stent to 99% of stenosis down to 0% successful stenting, performed 05/06/2018 Dr. Marie patient currently is on Lipitor 80 mg daily, Tenormin 25 mg daily, Plavix 75 mg daily aspirin 81 mg daily 2. Diabetes mellitus type 2 insulin requiring, uncontrolled with hypoglycemia. Lantus discontinued continue NovoLog scale, hemoglobin A1c is 7.0. 3. Bladder cancer newly diagnosed presenting with cross hematuria, [facility] is anticipating bladder surgery around May 2018, Dr. Roberts, urologist. Dr. Blount consult appreciated. Cystoscopy, evacuation of clot , transverse resection of bladder tumor, exploratory laparotomy with closure of bladder laceration performed. 4. Hypertensive Vascular disease. Continue atenolol. 5. Dysthymia, Zoloft 50 mg daily 6. Neurocognitive deficits with memory loss, on Namenda 10 mg PAD, patient is not on any anticholinesterase medication. 7. Insomnia, schedule melatonin 6 mg at bedtime. 8. GI prophylaxis with Pepcid 9. DVT prophylaxis, high risk known bladder cancer, with SCDs 10. Chronic blood loss anemia hemoglobin is 9.0, iron studies will be done 11. Acute kidney injury secondary to ATN secondary to hemodynamic instability and contrast-induced nephropathy with CKD stage III nephrotoxins will be avoided , consult with nephrology appreciated 12. Hyponatremia acute, secondary to large volume bladder irrigation and Hyzaar. Hyzaar was discontinued. Nephrology consult appreciated. 13. Hypomagnesemia, replacement with monitoring 14. Mild metabolic acidosis, and is not on metformin prior to admission, continue fluids for hydration 15. Restless leg, on Mirapex 0.125 mg daily when necessary, iron studies to be obtained mite replacement 16. Possible postoperative ileus related to decreased bowel sounds and decreased NG tube output, improved Discharge plan: [facility] on Saturday Impression and plan of care have been directed as dictated by the signing physician. Kylah Begum nurse practitioner acting as scribe for signing physician.
[2018-05-17] MEDS: PRAMIPEXOLE 0.25 MG TAB PO SCH ×2 (10:38→20:38)
[2018-05-17] MEDS: ATENOLOL 25 MG TAB PO SCH (10:38)
[2018-05-17] MEDS: MEMANTINE 10 MG TAB PO SCH ×2 (10:38→20:38)
[2018-05-17] MEDS: ASPIRIN 81 MG PO SCH (10:38)
[2018-05-17] MEDS: SERTRALINE 50 MG TAB PO SCH (10:38)
[2018-05-17] MEDS: FAMOTIDINE 20 MG TAB PO SCH (10:38)
[2018-05-17] MEDS: CLOPIDOGREL 75 MG TAB PO SCH (10:38)
[2018-05-17 11:47] LABS: Glucose,Whole Blood 128 mg/dL (75-99)
[2018-05-17] MEDS: SODIUM FERRIC GLUCONAT-SUCROSE 125 MG in SODIUM CHLORIDE 0.9% 100 ML IVPB SCH (12:25)
--- NOTE | 2018-05-17 14:18 | P.PN ---
Subjective Progress Note Date: 05/17/18 Principal diagnosis: Patient is seen in follow-up for acute kidney injury and hyponatremia. Sodium is improving and is up to 132 this morning. Her creatinine is down to 0.9.. This is deemed to be from acute kidney injury. She received 1 dose of Lasix yesterday. Patient is somewhat sleepy arousable but seems to be not eating very well. Patient has history of bladder cancer and is status post TUR-BT with exploratory laparotomy on May 09. She also had a myocardial infarction and had a stent placed to the RCA on May 06. She is nonoliguric. She has a suprapubic catheter in place. Currently resting in bed. Denies chest pain or shortness of breath. She received a blood transfusion on May 13. Renal function stable. Patient is confused this morning. Objective - Vital Signs Vital signs: Vital Signs Temp 98.2 F 05/17/18 08:00 Pulse 63 05/17/18 12:00 Resp 14 05/17/18 12:00 BP 128/72 05/17/18 12:00 Pulse Ox 96 05/17/18 12:00 Intake & Output 05/16/18 05/17/18 05/17/18 18:59 06:59 18:59 Intake Total 480 Output Total 1765 3 Balance -1285 -3 Weight 78 kg Intake: Oral 480 Output: Drainage 15 Abdomen 15 Urine 1750 0 Stool 3 Other: Voiding Method Indwelling Catheter Indwelling Catheter Indwelling Catheter # Voids 0 ABP, PAP, CO, CI - Last Documented Arterial Blood Pressure 112/37 Examination arousable and awake alert oriented but tends to be sleepy. HEENT exam no JVP neck is supple no facial asymmetry Lungs clear to auscultation good air entry bilaterally Heart sounds are unremarkable no murmur rub gallop Abdomen soft nontender Extremity exam was no edema Neurologically arousable sleepy but seems to be oriented - Labs CBC & Chem 7: 05/17/18 07:31 05/17/18 07:31 Labs: Abnormal Lab Results - Last 24 Hours (Table) 05/16/18 05/16/18 05/17/18 Range/Units 16:47 21:10 06:06 RBC (3.80-5.40) m/uL Hgb (11.4-16.0) gm/dL Hct (34.0-46.0) % Sodium (137-145) mmol/L Chloride (98-107) mmol/L BUN (7-17) mg/dL Glucose (74-99) mg/dL POC Glucose (mg/dL) 139 H 117 H 111 H (75-99) mg/dL Magnesium (1.6-2.3) mg/dL 05/17/18 05/17/18 05/17/18 Range/Units 07:31 07:31 11:37 RBC 3.18 L (3.80-5.40) m/uL Hgb 9.9 L (11.4-16.0) gm/dL Hct 28.0 L (34.0-46.0) % Sodium 132 L (137-145) mmol/L Chloride 95 L (98-107) mmol/L BUN 22 H (7-17) mg/dL Glucose 105 H (74-99) mg/dL POC Glucose (mg/dL) 128 H (75-99) mg/dL Magnesium 1.4 L (1.6-2.3) mg/dL Assessment and Plan Assessment: Impression 1. Acute kidney injury secondary to multifocal total factors including medications, and contrast creatinine resolved and is 0.9. 2. Hyponatremia secondary to acute kidney injury, and an element of congestive heart failure was given 1 dose of Lasix yesterday. Improved sodium 132. 3. Acute NH and post cardiac cath with the stent to RCA on 05/14/2018 4. Status post bladder cancer and is status post TUR-BT with exploratory laparotomy on May 09, she has a suprapubic cystostomy. Recommendation. 1. Maintain current medication and watch her I's and O's, watch her labs and expects sodium to improve. She needs to have better nutritional intake Plan: Assessment: 1. Hyponatremia secondary to large volume bladder irrigation as well as Hyzaar. Sodium level dropped to 130 today. Patient is also on Zoloft which can induce SIADH. 2. STEMI status post cardiac catheterization with a stent to the RCA on May 14. 3. Bladder cancer status post TUR-BT with exploratory laparotomy and closure of bladder rupture on May 09. 4. Metabolic acidosis secondary to acute kidney injury and IV fluids. Better. 5. Diabetes mellitus. 6. Acute kidney injury secondary to ATN secondary to hemodynamic instability and contrast-induced nephropathy. Renal function stable. 7. Acute anemia status post blood transfusion this admission. Better. Severe iron deficiency noted. 8. Fluid overload. Chest x-ray suggestive of CHF with vascular congestion and pleural effusion. Improved. 9. Hypomagnesemia secondary to diuresis. Improved post replacement. Plan: Remains off all IV fluids. Continue to hold Hyzaar for now. Encouraged oral intake. 1500 mL fluid restriction. IV Ferrlecit 3 doses. Third dose today. Lasix 20 mg IV once today. Repeat electrolytes in the morning.
[2018-05-17 17:09] LABS: Glucose,Whole Blood 108 mg/dL (75-99)
[2018-05-17] MEDS: MELATONIN 3 MG TABLET PO SCH (20:38)
[2018-05-17] MEDS: ATORVASTATIN 80 MG TAB PO SCH (20:38)
[2018-05-17 21:05] LABS: Glucose,Whole Blood 119 mg/dL (75-99)
[2018-05-18 07:45] LABS: HCT 29.4 % (34.0-46.0); HGB 9.9 gm/dL (11.4-16.0); MCH 30.1 pg (25.0-35.0); MCHC 33.6 g/dL (31.0-37.0); MCV 89.5 fL (80.0-100.0); Mean Platelet Volume 6.4; Platelet Count 297 k/uL (150-450); RBC 3.28 m/uL (3.80-5.40); RDW 14.7 % (11.5-15.5); WBC 12.4 k/uL (3.8-10.6)
--- NOTE | 2018-05-18 10:27 | P.PN ---
Subjective Progress Note Date: 05/18/18 This is a 78-year-old female patient of Dr. Lewis underlying history of dementia, diabetes mellitus type 2, hypertension, hyperlipidemia, who is currently a very poor historian. Patient provided some limited history that says chest discomfort and left shoulder discomfort, requiring ER evaluation. Patient was resting at that time, she denies any shortness of breath or diaphoresis no nausea or vomiting, no lightheadedness or dizziness, no syncope. EMS was called in, EKG was performed that shows acute ST segment elevation in the inferior leads, and was sent in directly to the cardiac hospital laboratory technician and went for an emergent cardiac cath requiring drug-eluting stent involving the RCA from a 99% stenosis to 0% stenosis post-stenting. Patient was chest pain-free after the procedure, currently now requiring double antiplatelet platelet agents. Patient was last seen by Dr. Lewis 04/08/2018 for diabetic foot face-to -face encounter for diabetic shoes Particular history is positive for hematuria on seen by Dr. Martinez and was referred to [facility] Dr. Roberts [phone] for which bladder surgery would be performed in May 2018, for the suspicious mass highly suggestive of malignancy Echocardiogram performed 05/06/2018 normal sinus rhythm, EF 50-55%, basal inferolateral hypokinesia, thickened aortic valve, mild aortic regurgitation, mild TR, mild MR, right ventricular systolic pressure of 16, aortic root size is normal, normal pericardium Cardiac cath report 05/06/2018, Dr. Katz, showed right coronary artery need stenosis from a 99% to 0% using Xience drug-eluting stent 3.0 x 18 mm, through the right radial artery approach. Findings shows RCA distally with mild disease , PDA and PLV branches have mild disease, left main normal, left circumflex complex normal, however there is 30% to 40% occlusive disease after the first OM branch, proximal LAD mild disease, Patient was comfortable when seen in the presence of the son who is POA, full discussion was made regarding the intervention for the STEMI as well as the need to delay the bladder surgery as it would require treatment of the cardiac occlusive disease first and was recommended to have cardiac clearance to be off the double antiplatelet agents prior to the anticipated bladder surgery 05/07: Patient will be transferred out of the intensive care unit today to selective care. She denies having any chest pain or shortness of breath. She does continue to have small amount of bright red blood in her urine but no clots , positive sediment. She has been encouraged to drink a glass of water by her physician in [facility]. Ferrlecit will be ordered. 05/08: Patient is resting comfortably up in a chair. She is denying having any chest pain or shortness of breath. Patient continues to have bright red blood in her urine. She had a large amount in the evening with 6-7 large clots and a another episode in the morning without any clots. Recently hemoglobin this morning was 8. Patient was seen by urology a three-way Pleitez catheter was placed in manually irrigated with removal of 1 clots. Continues bladder irrigation will continue with manual irrigation of the catheter as needed. 05/09: This morning, patient has hemoglobin of 6.71 unit packed RBCs will be ordered. Dr. Blount has evaluated with plan for cystoscopy and fulguration today. She had Pleitez catheter placed yesterday for retention and has noted hematuria which has been present since admission. Patient denies any chest pain , no abdominal pain, no lightheadedness. BUN 25 and creatinine 1.23 and sodium 125. Blood sugars have been labile with range of 78-223. Vital signs are stable, afebrile. 05/10: Patient is currently on vent after cystoscopy, transurethral resection of bladder tumor, exploratory laparotomy with closure of bladder laceration. Continuous bladder irrigation into suprapubic tube and throughout the urethral catheter. Shows a return with faint of pink tinged urine. Patient is hemodynamically stable. She appears to be resting comfortably. The CBC 14.4, hemoglobin 7.8, sodium 118, chloride 91. We will obtain osmolarity, sodium level and a urine random sodium. 05/11: Patient continues to be on vent after cystoscopy, transurethral resection of bladder tumor, exploratory laparotomy with closure of bladder laceration. Continuous bladder irrigation into the super pubic tube and throughout the urethral catheter continues at a slower rate. The return still has a faint pink tinged urine. Patient continues to be hemodynamically stable. She appears to be resting comfortably. Nephrology consult completed IV fluids have been stopped. Sodium has improved to 120. We will stop the Zoloft follow nephrology's recommendations. Patient has not had any bowel movements and a small amount of output from her NG tube. We will obtain an abdominal x- ray. 05/12: Patient remains intubated and on mechanical ventilation. She is off sedation and not currently following directions well. Possible extubation today. She is able to nod that she is not having any pain. She has been afebrile and vital signs are stable. White count is 11.4 and hemoglobin 7.2, sodium is improved to 124, BUN 21 and creatinine 1.11. Patient is followed by multiple consultants. 05/13: Patient was successfully extubated yesterday afternoon. She is currently on Plavix and aspirin. Hemoglobin this morning is 6.5 and she is scheduled for 1 unit packed RBCs. Her vital signs have been stable, she is on 2 L nasal cannula. Patient will be transferred out of ICU today. She ate about 50% of her breakfast this morning. Dr. Martinez is planning to contact radiation oncology for treatment for her bladder cancer. 05/14: Patient remains in intensive care unit waiting for a bed. Blood pressure has been stable. Patient is currently on room air. She received Lasix 40 mg IV this morning. She did have a small amount of bleeding from the vaginal area. Pleitez catheter is blood tinged without clots with sufficient output. JOSE J drain has sanguinous drainage less than 100 mL over the past 24 hours. Patient did have a bowel movement yesterday which was liquid and C. difficile toxin was negative. Patient has not required pain medication. Dr. Martinez has discussed this case with Dr. Chiu radiation oncology and plan is to delay radiation for about 6 weeks to allow bladder to heal. Nephrology has ordered Ferrlecit for 3 doses starting today. Hemoglobin is 9.8, BUN 22 and creatinine 1.1. 05/15: Patient is on the cardiac stepdown unit. Hemoglobin is 9.2, BUN 25 creatinine 1.09. Blood sugars are running between 122 and 186. Chest x-ray shows resolution of previously seen pulmonary vascular congestion improvement of the trace bilateral pleural effusions. Last night, patient pulled out her urethral catheter and now there is more blood coming from the suprapubic catheter. Dr. Chávez continues to follow. Patient is on a 1500 mL fluid restriction. He has ordered magnesium replacement today. Physical therapy is recommending subacute rehab arrangements are being made for [facility]. Dr. Chiu has evaluated the patient with plan for radiation in 4-6 weeks and follow-up with him in 3 weeks. Patient is pleasantly confused and requesting to be discharged home. Her son is at the bedside and has been updated.. 05/16: Patient is sitting up in a recliner and is pleasantly confused. This morning, Pleitez bag is draining clear george urine. BUN 24 and creatinine 1.06. In yesterday's note, Dr. Martinez mention some debris moving her drain and will await his decision on this. Hemoglobin today is 9.9. No plan for any transfusion. The patient was prepared for discharge to [facility] but [facility] requires plan from oncology and diagnoses codes from oncology before they will accept patient. Anticipate patient will be here over the weekend and discharged on Saturday. 05/17: [facility] is waiting for information from oncology regarding plan of care and diagnoses codes. Patient is pleasantly confused and denies any new complaints. According to nursing, patient has been eating and drinking okay. No problems with diarrhea. Catheter noted to have small clots in blood-tinged urine from the suprapubic catheter. Anticipate discharge on Saturday to subacute rehab. 05/18: Patient is completed 3 doses of Ferrlecit. Patient is sitting up in bed and is awake and alert, more talkative and interactive today but remains pleasantly confused. Suprapubic catheter is draining bloody urine. We are anticipating discharge to [facility] tomorrow. Review Of Systems: Unable to assess due to patient's mental status, underlying dementia Objective - Vital Signs Vital signs: Vital Signs Temp 98.1 F 05/18/18 00:00 Pulse 73 05/18/18 00:00 Resp 20 05/18/18 00:00 BP 131/61 05/18/18 00:00 Pulse Ox 93 L 05/18/18 00:00 Intake & Output 05/17/18 05/18/18 05/18/18 18:59 06:59 18:59 Output Total 1100 1102 Balance -1100 -1102 Weight 79 kg Output: Urine 1100 1100 Stool 2 Other: Voiding Method Indwelling Catheter Indwelling Catheter # Voids 0 ABP, PAP, CO, CI - Last Documented Arterial Blood Pressure 112/37 - Exam General appearance: cooperative. Patient is in bed and appears to be comfortable - EENT Eyes: anicteric sclerae, EOMI, PERRLA, dentition normal, normal appearance ENT: hearing grossly normal, NA/AT, normal oropharynx - Neck Neck: normal ROM - Respiratory Respiratory: bilateral: CTA, negative: diminished, dullness, rales - Cardiovascular Rhythm: regular Heart sounds: normal: S1, S2. quality assurance monitor body is normal sinus rhythm. Abnormal Heart Sounds: systolic murmur - Gastrointestinal General gastrointestinal: normal bowel sounds, tenderness (None), suprapubic catheter shows hematuria small amount of sediment. Dressing in place to her abdominal wound. JOSE J drain with sanguinous return. - Integumentary Integumentary: normal, normal turgor - Neurologic Neurologic: CNII-XII intact - Musculoskeletal Musculoskeletal: gait normal, strength equal bilaterally - Psychiatric Psychiatric: A&O x's 2, appropriate affect, no intact judgment & insight, patient is pleasantly confused. - Labs CBC & Chem 7: 05/18/18 06:41 05/17/18 07:31 Labs: Abnormal Lab Results - Last 24 Hours (Table) 05/17/18 05/17/18 05/17/18 Range/Units 07:31 07:31 11:37 WBC (3.8-10.6) k/uL RBC 3.18 L (3.80-5.40) m/uL Hgb 9.9 L (11.4-16.0) gm/dL Hct 28.0 L (34.0-46.0) % Sodium 132 L (137-145) mmol/L Chloride 95 L (98-107) mmol/L BUN 22 H (7-17) mg/dL Glucose 105 H (74-99) mg/dL POC Glucose (mg/dL) 128 H (75-99) mg/dL Magnesium 1.4 L (1.6-2.3) mg/dL 05/17/18 05/17/18 05/18/18 Range/Units 16:42 21:04 06:41 WBC 12.4 H (3.8-10.6) k/uL RBC 3.28 L (3.80-5.40) m/uL Hgb 9.9 L (11.4-16.0) gm/dL Hct 29.4 L (34.0-46.0) % Sodium (137-145) mmol/L Chloride (98-107) mmol/L BUN (7-17) mg/dL Glucose (74-99) mg/dL POC Glucose (mg/dL) 108 H 119 H (75-99) mg/dL Magnesium (1.6-2.3) mg/dL Assessment and Plan Plan: 1. Acute inferior wall STEMI involving RCA requiring drug-eluting stent to 99% of stenosis down to 0% successful stenting, performed 05/06/2018 Dr. Marie patient currently is on Lipitor 80 mg daily, Tenormin 25 mg daily, Plavix 75 mg daily aspirin 81 mg daily 2. Diabetes mellitus type 2 insulin requiring, uncontrolled with hypoglycemia. Lantus discontinued continue NovoLog scale, hemoglobin A1c is 7.0. 3. Bladder cancer newly diagnosed presenting with cross hematuria, [facility] is anticipating bladder surgery around May 2018, Dr. Roberts, urologist. Dr. Blount consult appreciated. Cystoscopy, evacuation of clot , transverse resection of bladder tumor, exploratory laparotomy with closure of bladder laceration performed. 4. Hypertensive Vascular disease. Continue atenolol. 5. Dysthymia, Zoloft 50 mg daily 6. Neurocognitive deficits with memory loss, on Namenda 10 mg PAD, patient is not on any anticholinesterase medication. 7. Insomnia, schedule melatonin 6 mg at bedtime. 8. GI prophylaxis with Pepcid 9. DVT prophylaxis, high risk known bladder cancer, with SCDs 10. Chronic blood loss anemia hemoglobin is 9.0, iron studies will be done 11. Acute kidney injury secondary to ATN secondary to hemodynamic instability and contrast-induced nephropathy with CKD stage III nephrotoxins will be avoided , consult with nephrology appreciated 12. Hyponatremia acute, secondary to large volume bladder irrigation and Hyzaar. Hyzaar was discontinued. Nephrology consult appreciated. 13. Hypomagnesemia, replacement with monitoring 14. Mild metabolic acidosis, and is not on metformin prior to admission, continue fluids for hydration 15. Restless leg, on Mirapex 0.125 mg daily when necessary, iron studies to be obtained mite replacement 16. Possible postoperative ileus related to decreased bowel sounds and decreased NG tube output, improved Discharge plan: [facility] on Saturday once arrangements are completed Impression and plan of care have been directed as dictated by the signing physician. Kylah Begum nurse practitioner acting as scribe for signing physician.
--- NOTE | 2018-05-18 11:33 | P.PN ---
Subjective Progress Note Date: 05/18/18 Principal diagnosis: Patient is seen in follow-up for acute kidney injury and hyponatremia. Hyponatremia secondary to large volume bladder irrigation as well as Hyzaar. Sodium is improving and is up to 132 yesterday. Her creatinine is down to 0.9.. This is deemed to be from acute kidney injury., Her urine output is somewhat blood tinged, has a Pleitez catheter Patient is doing well. No nausea vomiting good appetite no diarrhea. No cough fever chills shortness of breath. She is able to stand up with some help. . Patient has history of bladder cancer and is status post TUR-BT with exploratory laparotomy on May 09. She also had a myocardial infarction and had a stent placed to the RCA on May 06. She is nonoliguric. She has a suprapubic catheter in place. Currently resting in bed. Denies chest pain or shortness of breath. She received a blood transfusion on May 13. Renal function stable. Patient is confused this morning. Objective - Vital Signs Vital signs: Vital Signs Temp 98.1 F 05/18/18 00:00 Pulse 73 05/18/18 00:00 Resp 20 05/18/18 00:00 BP 131/61 05/18/18 00:00 Pulse Ox 93 L 05/18/18 00:00 Intake & Output 05/17/18 05/18/18 05/18/18 18:59 06:59 18:59 Output Total 1100 1102 Balance -1100 -1102 Weight 79 kg Output: Urine 1100 1100 Stool 2 Other: Voiding Method Indwelling Catheter Indwelling Catheter # Voids 0 ABP, PAP, CO, CI - Last Documented Arterial Blood Pressure 112/37 On examination she is awake alert oriented comfortable HEENT exam no JVP neck is supple no facial asymmetry Lungs are clear to auscultation good air entry bilaterally Heart sounds are unremarkable for any murmur rub gallop Abdomen soft nontender Extremity exam was no edema Neurologically awake alert oriented cheerful. - Labs CBC & Chem 7: 05/18/18 06:41 05/17/18 07:31 Labs: Abnormal Lab Results - Last 24 Hours (Table) 05/17/18 05/17/18 05/17/18 Range/Units 11:37 16:42 21:04 WBC (3.8-10.6) k/uL RBC (3.80-5.40) m/uL Hgb (11.4-16.0) gm/dL Hct (34.0-46.0) % POC Glucose (mg/dL) 128 H 108 H 119 H (75-99) mg/dL 05/18/18 Range/Units 06:41 WBC 12.4 H (3.8-10.6) k/uL RBC 3.28 L (3.80-5.40) m/uL Hgb 9.9 L (11.4-16.0) gm/dL Hct 29.4 L (34.0-46.0) % POC Glucose (mg/dL) (75-99) mg/dL Assessment and Plan Plan: Assessment: 1. Hyponatremia secondary to large volume bladder irrigation as well as Hyzaar. Sodium level dropped to 130 today. Patient is also on Zoloft which can induce SIADH. 2. STEMI status post cardiac catheterization with a stent to the RCA on May 14. 3. Bladder cancer status post TUR-BT with exploratory laparotomy and closure of bladder rupture on May 09. 4. Metabolic acidosis secondary to acute kidney injury and IV fluids. Better. 5. Diabetes mellitus. 6. Acute kidney injury secondary to ATN secondary to hemodynamic instability and contrast-induced nephropathy. Renal function stable. 7. Acute anemia status post blood transfusion this admission. Better. Severe iron deficiency noted. 8. Fluid overload. Chest x-ray suggestive of CHF with vascular congestion and pleural effusion. Improved. 9. Hypomagnesemia secondary to diuresis. Improved post replacement. Plan: Remains off all IV fluids. Continue to hold Hyzaar for now. Encouraged oral intake. 1500 mL fluid restriction. IV Ferrlecit 3 doses, completed Repeat electrolytes in the morning.
[2018-05-18] MEDS: MEMANTINE 10 MG TAB PO SCH ×2 (11:58→21:41)
[2018-05-18] MEDS: ATENOLOL 25 MG TAB PO SCH (11:58)
[2018-05-18] MEDS: PRAMIPEXOLE 0.25 MG TAB PO SCH ×2 (11:58→21:41)
[2018-05-18] MEDS: SERTRALINE 50 MG TAB PO SCH (11:59)
[2018-05-18] MEDS: CLOPIDOGREL 75 MG TAB PO SCH (11:59)
[2018-05-18] MEDS: FAMOTIDINE 20 MG TAB PO SCH (11:59)
[2018-05-18] MEDS: ASPIRIN 81 MG PO SCH (11:59)
[2018-05-18 12:00] LABS: Glucose,Whole Blood 135 mg/dL (75-99)
[2018-05-18] MEDS: INSULIN ASPART 100 UNIT/ML 1 ML 10 ML VIAL SQ SCH ×4 (14:57→21:41)
[2018-05-18 16:57] LABS: Glucose,Whole Blood 171 mg/dL (75-99)
[2018-05-18 19:55] LABS: Glucose,Whole Blood 151 mg/dL (75-99)
[2018-05-18] MEDS: MELATONIN 3 MG TABLET PO SCH (21:41)
[2018-05-18] MEDS: ATORVASTATIN 80 MG TAB PO SCH (21:41)
[2018-05-19 07:14] LABS: Glucose,Whole Blood 136 mg/dL (75-99)
[2018-05-19] MEDS: INSULIN ASPART 100 UNIT/ML 1 ML 10 ML VIAL SQ SCH ×4 (07:47→22:05)
[2018-05-19] MEDS: ASPIRIN 81 MG PO SCH (07:48)
[2018-05-19] MEDS: FAMOTIDINE 20 MG TAB PO SCH (07:48)
[2018-05-19] MEDS: PRAMIPEXOLE 0.25 MG TAB PO SCH ×2 (07:48→22:04)
[2018-05-19] MEDS: SERTRALINE 50 MG TAB PO SCH (07:48)
[2018-05-19] MEDS: CLOPIDOGREL 75 MG TAB PO SCH (07:48)
[2018-05-19] MEDS: ATENOLOL 25 MG TAB PO SCH (07:49)
[2018-05-19] MEDS: MEMANTINE 10 MG TAB PO SCH ×2 (07:49→22:05)
[2018-05-19 08:31] LABS: HCT 28.8 % (34.0-46.0); HGB 9.7 gm/dL (11.4-16.0); MCH 30.1 pg (25.0-35.0); MCHC 33.7 g/dL (31.0-37.0); MCV 89.4 fL (80.0-100.0); Mean Platelet Volume 6.4; Platelet Count 285 k/uL (150-450); RBC 3.23 m/uL (3.80-5.40); RDW 14.9 % (11.5-15.5); WBC 12.3 k/uL (3.8-10.6)
--- NOTE | 2018-05-19 08:47 | CDI ---
Last Revision, May 2017 Documentation Clarification Form Date: 05/19/18 From: Celia Bravo Admit Date: 05/06/2018 12:59:00 AM Patient Name: Reena Dowling Visit Number: [id number] ATTENTION: The Clinical Documentation Specialists (CDI) and [facility] Coding Staff appreciate your assistance in clarifying documentation. Please respond to the clarification below the line at the bottom and electronically sign. The CDI & [facility] Coding staff will review the response and follow-up if needed. Please note: Queries are made part of the Legal Health Record. If you have any questions, please contact the author of this message via ITS. Praneeth White MD, Conflicting documentation has been found in the medical record. Patient admitted with STEMI. CXR 05/06: No heart failure seen. CXR 05/11: There is no heart failure nor confluent pneumonic infiltrate. PN 05/01: Chest x-ray showed no evidence of congestive heart failure, no evidence of infiltrates. PN 05/14 - states Chest x-ray suggestive of CHF with vascular congestion and pleural effusion PN 05/17: element of congestive heart failure was given 1 dose of Lasix yesterday Cardiology does not Mention CHF. History/Risk Factors: dementia, DM2, HTN, hyperlipidemia, CAD, bladder cancer Clinical Indicators: NO Edema No shortness of breath Fluid Overload, 1500ml fluid restriction ECHO: EF 50-55% Treatment: IV Lasix x2 doses, Atenolol Patient is not on Lasix at home Heart healthy diet Strict I&O's In your opinion what is the most clinically appropriate diagnosis for this patient? CHF ruled in CHF ruled out If ruled in please document if it is: Acute Diastolic Acute on chronic Diastolic Chronic Diastolic Other: Unable to Determine: POA? Yes or no Acute on Chronic Systolic CHF MTDD
[2018-05-19 11:38] LABS: Glucose,Whole Blood 136 mg/dL (75-99)
[2018-05-19 11:59] VITALS: BMI 30.1
[2018-05-19] MEDS: HYDROcodone/APAP 5-325MG 1 EACH TAB PO PRN (14:59)
[2018-05-19 17:25] LABS: Glucose,Whole Blood 134 mg/dL (75-99)
[2018-05-19 17:44] LABS: Calcium 8.4 mg/dL (8.4-10.2)
--- NOTE | 2018-05-19 18:32 | PN ---
PROGRESS NOTE Patient is seen for followup for hyponatremia. Her serum sodium had improved to 132 on 05/17/2018. We do not have any other labs available after that. The patient is being discharged today. She denies any complaints. She states she is eating well. PHYSICAL EXAMINATION: Blood pressure was 158/66, heart rate 74 per minute. She is afebrile. Examination of the heart S1, S2. Examination of lungs bilateral breath sounds are heard. Abdomen is soft, nontender. Examination of lower extremities shows no significant edema. PERINATAL COORDINATOR exam is grossly intact. LABS: Not available from today. ASSESSMENT: 1. Hyponatremia secondary to large volume bladder irrigation as well as thiazide diuretics, currently improved. We do not have any labs today. If the patient is discharged, she should have blood work done in about 2-3 days post discharge. 2. Status post ST elevation myocardial infarction, status post cardiac cath with coronary stent on May 14. 3. Bladder cancer status post explorative laparotomy and closure of bladder rupture on May 09. 4. Volume overload, currently improved. PLAN: Repeat labs as outpatient in 2-3 days. The patient is encouraged to maintain good oral protein intake. MMODL / IJN: [id number] /
[2018-05-19 22:02] LABS: Glucose,Whole Blood 169 mg/dL (75-99)
[2018-05-19] MEDS: ATORVASTATIN 80 MG TAB PO SCH (22:05)
[2018-05-19] MEDS: MELATONIN 3 MG TABLET PO SCH (22:05)
[2018-05-20 07:06] LABS: Glucose,Whole Blood 144 mg/dL (75-99)
[2018-05-20] MEDS: ASPIRIN 81 MG PO SCH (10:19)
[2018-05-20] MEDS: CLOPIDOGREL 75 MG TAB PO SCH (10:19)
[2018-05-20] MEDS: FAMOTIDINE 20 MG TAB PO SCH (10:19)
[2018-05-20] MEDS: ATENOLOL 25 MG TAB PO SCH (10:20)
[2018-05-20] MEDS: SERTRALINE 50 MG TAB PO SCH (10:20)
[2018-05-20] MEDS: MEMANTINE 10 MG TAB PO SCH ×2 (10:20→22:12)
[2018-05-20] MEDS: PRAMIPEXOLE 0.25 MG TAB PO SCH ×2 (10:20→22:13)
[2018-05-20] MEDS: INSULIN ASPART 100 UNIT/ML 1 ML 10 ML VIAL SQ SCH ×4 (10:21→22:13)
[2018-05-20] MEDS ORDERED: FUROSEMIDE 10 MG/ML 2 ML VIAL IV ONE (10:38)
[2018-05-20 11:39] LABS: Glucose,Whole Blood 175 mg/dL (75-99)
--- NOTE | 2018-05-20 12:05 | P.PN ---
Subjective Progress Note Date: 05/19/18 This is a 78-year-old female patient of Dr. Lewis underlying history of dementia, diabetes mellitus type 2, hypertension, hyperlipidemia, who is currently a very poor historian. Patient provided some limited history that says chest discomfort and left shoulder discomfort, requiring ER evaluation. Patient was resting at that time, she denies any shortness of breath or diaphoresis no nausea or vomiting, no lightheadedness or dizziness, no syncope. EMS was called in, EKG was performed that shows acute ST segment elevation in the inferior leads, and was sent in directly to the cardiac labor expediter and went for an emergent cardiac cath requiring drug-eluting stent involving the RCA from a 99% stenosis to 0% stenosis post-stenting. Patient was chest pain-free after the procedure, currently now requiring double antiplatelet platelet agents. Patient was last seen by Dr. Lewis 04/08/2018 for diabetic foot face-to -face encounter for diabetic shoes Particular history is positive for hematuria on seen by Dr. Martinez and was referred to [facility] Dr. Roberts [phone] for which bladder surgery would be performed in May 2018, for the suspicious mass highly suggestive of malignancy Echocardiogram performed 05/06/2018 normal sinus rhythm, EF 50-55%, basal inferolateral hypokinesia, thickened aortic valve, mild aortic regurgitation, mild TR, mild MR, right ventricular systolic pressure of 16, aortic root size is normal, normal pericardium Cardiac cath report 05/06/2018, Dr. Katz, showed right coronary artery need stenosis from a 99% to 0% using Xience drug-eluting stent 3.0 x 18 mm, through the right radial artery approach. Findings shows RCA distally with mild disease , PDA and PLV branches have mild disease, left main normal, left circumflex complex normal, however there is 30% to 40% occlusive disease after the first OM branch, proximal LAD mild disease, Patient was comfortable when seen in the presence of the son who is POA, full discussion was made regarding the intervention for the STEMI as well as the need to delay the bladder surgery as it would require treatment of the cardiac occlusive disease first and was recommended to have cardiac clearance to be off the double antiplatelet agents prior to the anticipated bladder surgery 05/07: Patient will be transferred out of the intensive care unit today to selective care. She denies having any chest pain or shortness of breath. She does continue to have small amount of bright red blood in her urine but no clots , positive sediment. She has been encouraged to drink a glass of water by her physician in [facility]. Ferrlecit will be ordered. 05/08: Patient is resting comfortably up in a chair. She is denying having any chest pain or shortness of breath. Patient continues to have bright red blood in her urine. She had a large amount in the evening with 6-7 large clots and a another episode in the morning without any clots. Recently hemoglobin this morning was 8. Patient was seen by urology a three-way Pleitez catheter was placed in manually irrigated with removal of 1 clots. Continues bladder irrigation will continue with manual irrigation of the catheter as needed. 05/09: This morning, patient has hemoglobin of 6.71 unit packed RBCs will be ordered. Dr. Blount has evaluated with plan for cystoscopy and fulguration today. She had Pleitez catheter placed yesterday for retention and has noted hematuria which has been present since admission. Patient denies any chest pain , no abdominal pain, no lightheadedness. BUN 25 and creatinine 1.23 and sodium 125. Blood sugars have been labile with range of 78-223. Vital signs are stable, afebrile. 05/10: Patient is currently on vent after cystoscopy, transurethral resection of bladder tumor, exploratory laparotomy with closure of bladder laceration. Continuous bladder irrigation into suprapubic tube and throughout the urethral catheter. Shows a return with faint of pink tinged urine. Patient is hemodynamically stable. She appears to be resting comfortably. The CBC 14.4, hemoglobin 7.8, sodium 118, chloride 91. We will obtain osmolarity, sodium level and a urine random sodium. 05/11: Patient continues to be on vent after cystoscopy, transurethral resection of bladder tumor, exploratory laparotomy with closure of bladder laceration. Continuous bladder irrigation into the super pubic tube and throughout the urethral catheter continues at a slower rate. The return still has a faint pink tinged urine. Patient continues to be hemodynamically stable. She appears to be resting comfortably. Nephrology consult completed IV fluids have been stopped. Sodium has improved to 120. We will stop the Zoloft follow nephrology's recommendations. Patient has not had any bowel movements and a small amount of output from her NG tube. We will obtain an abdominal x- ray. 05/12: Patient remains intubated and on mechanical ventilation. She is off sedation and not currently following directions well. Possible extubation today. She is able to nod that she is not having any pain. She has been afebrile and vital signs are stable. White count is 11.4 and hemoglobin 7.2, sodium is improved to 124, BUN 21 and creatinine 1.11. Patient is followed by multiple consultants. 05/13: Patient was successfully extubated yesterday afternoon. She is currently on Plavix and aspirin. Hemoglobin this morning is 6.5 and she is scheduled for 1 unit packed RBCs. Her vital signs have been stable, she is on 2 L nasal cannula. Patient will be transferred out of ICU today. She ate about 50% of her breakfast this morning. Dr. Martinez is planning to contact radiation oncology for treatment for her bladder cancer. 05/14: Patient remains in intensive care unit waiting for a bed. Blood pressure has been stable. Patient is currently on room air. She received Lasix 40 mg IV this morning. She did have a small amount of bleeding from the vaginal area. Pleitez catheter is blood tinged without clots with sufficient output. JOSE J drain has sanguinous drainage less than 100 mL over the past 24 hours. Patient did have a bowel movement yesterday which was liquid and C. difficile toxin was negative. Patient has not required pain medication. Dr. Martinez has discussed this case with Dr. Chiu radiation oncology and plan is to delay radiation for about 6 weeks to allow bladder to heal. Nephrology has ordered Ferrlecit for 3 doses starting today. Hemoglobin is 9.8, BUN 22 and creatinine 1.1. 05/15: Patient is on the cardiac stepdown unit. Hemoglobin is 9.2, BUN 25 creatinine 1.09. Blood sugars are running between 122 and 186. Chest x-ray shows resolution of previously seen pulmonary vascular congestion improvement of the trace bilateral pleural effusions. Last night, patient pulled out her urethral catheter and now there is more blood coming from the suprapubic catheter. Dr. Chávez continues to follow. Patient is on a 1500 mL fluid restriction. He has ordered magnesium replacement today. Physical therapy is recommending subacute rehab arrangements are being made for [facility]. Dr. Cihu has evaluated the patient with plan for radiation in 4-6 weeks and follow-up with him in 3 weeks. Patient is pleasantly confused and requesting to be discharged home. Her son is at the bedside and has been updated.. 05/16: Patient is sitting up in a recliner and is pleasantly confused. This morning, Pleitez bag is draining clear george urine. BUN 24 and creatinine 1.06. In yesterday's note, Dr. Martinez mention some debris moving her drain and will await his decision on this. Hemoglobin today is 9.9. No plan for any transfusion. The patient was prepared for discharge to [facility] but [facility] requires plan from oncology and diagnoses codes from oncology before they will accept patient. Anticipate patient will be here over the weekend and discharged on Saturday. 05/17: The senior living is waiting for information from oncology regarding plan of care and diagnoses codes. Patient is pleasantly confused and denies any new complaints. According to nursing, patient has been eating and drinking okay. No problems with diarrhea. Catheter noted to have small clots in blood-tinged urine from the suprapubic catheter. Anticipate discharge on Saturday to subacute rehab. 05/18: Patient is completed 3 doses of Ferrlecit. Patient is sitting up in bed and is awake and alert, more talkative and interactive today but remains pleasantly confused. Suprapubic catheter is draining bloody urine. We are anticipating discharge to [facility] tomorrow. 05/19: Awaiting finalization of the discharge plan. Patient's son is at the bedside and has been updated. Patient is sitting up in a recliner and appears to be comfortable. She does have blood-tinged urine with clots in suprapubic Review Of Systems: Unable to assess due to patient's mental status, underlying dementia Objective - Vital Signs Vital signs: Vital Signs Temp 98.1 F 05/20/18 08:00 Pulse 72 05/20/18 08:00 Resp 18 05/20/18 08:00 BP 136/68 05/20/18 08:00 Pulse Ox 96 05/20/18 08:00 Intake & Output 05/19/18 05/20/18 05/20/18 18:59 06:59 18:59 Intake Total 120 Output Total 650 Balance -650 120 Weight 77.2 kg 77.5 kg Intake: Oral 120 Output: Urine 650 Other: Voiding Method Indwelling Catheter Ileal Conduit (Right) ABP, PAP, CO, CI - Last Documented Arterial Blood Pressure 112/37 - Exam General appearance: cooperative. Patient is in bed and appears to be comfortable - EENT Eyes: anicteric sclerae, EOMI, PERRLA, dentition normal, normal appearance ENT: hearing grossly normal, NA/AT, normal oropharynx - Neck Neck: normal ROM - Respiratory Respiratory: bilateral: CTA, negative: diminished, dullness, rales - Cardiovascular Rhythm: regular Heart sounds: normal: S1, S2. potline monitor is normal sinus rhythm. Abnormal Heart Sounds: systolic murmur - Gastrointestinal General gastrointestinal: normal bowel sounds, tenderness (None), suprapubic catheter shows hematuria small amount of sediment. Dressing in place to her abdominal wound. JOSE J drain with sanguinous return. - Integumentary Integumentary: normal, normal turgor - Neurologic Neurologic: CNII-XII intact - Musculoskeletal Musculoskeletal: gait normal, strength equal bilaterally - Psychiatric Psychiatric: A&O x's 1-2, appropriate affect, no intact judgment & insight, patient is pleasantly confused. - Labs CBC & Chem 7: 05/19/18 07:40 05/19/18 14:37 Labs: Abnormal Lab Results - Last 24 Hours (Table) 05/19/18 05/19/18 05/19/18 Range/Units 14:37 17:23 21:59 Sodium 127 L (137-145) mmol/L Chloride 93 L (98-107) mmol/L BUN 22 H (7-17) mg/dL Creatinine 1.11 H (0.52-1.04) mg/dL Glucose 133 H (74-99) mg/dL POC Glucose (mg/dL) 134 H 169 H (75-99) mg/dL 05/20/18 05/20/18 Range/Units 07:05 11:36 Sodium (137-145) mmol/L Chloride (98-107) mmol/L BUN (7-17) mg/dL Creatinine (0.52-1.04) mg/dL Glucose (74-99) mg/dL POC Glucose (mg/dL) 144 H 175 H (75-99) mg/dL Assessment and Plan Plan: 1. Acute inferior wall STEMI involving RCA requiring drug-eluting stent to 99% of stenosis down to 0% successful stenting, performed 05/06/2018 Dr. Marie patient currently is on Lipitor 80 mg daily, Tenormin 25 mg daily, Plavix 75 mg daily aspirin 81 mg daily 2. Diabetes mellitus type 2 insulin requiring, uncontrolled with hypoglycemia. Lantus discontinued continue NovoLog scale, hemoglobin A1c is 7.0. 3. Bladder cancer newly diagnosed presenting with cross hematuria, [facility] is anticipating bladder surgery around May 2018, Dr. Roberts, [phone] Blount consult appreciated. Cystoscopy, evacuation of clot , transverse resection of bladder tumor, exploratory laparotomy with closure of bladder laceration performed. 4. Hypertensive Vascular disease. Continue atenolol. 5. Dysthymia, Zoloft 50 mg daily 6. Neurocognitive deficits with memory loss, on Namenda 10 mg PAD, patient is not on any anticholinesterase medication. 7. Insomnia, schedule melatonin 6 mg at bedtime. 8. GI prophylaxis with Pepcid 9. DVT prophylaxis, high risk known bladder cancer, with SCDs 10. Chronic blood loss anemia hemoglobin is 9.0, iron studies will be done 11. Acute kidney injury secondary to ATN secondary to hemodynamic instability and contrast-induced nephropathy with CKD stage III nephrotoxins will be avoided , consult with nephrology appreciated 12. Hyponatremia acute, secondary to large volume bladder irrigation and Hyzaar. Hyzaar was discontinued. Nephrology consult appreciated. 13. Hypomagnesemia, replacement with monitoring 14. Mild metabolic acidosis, and is not on metformin prior to admission, continue fluids for hydration 15. Restless leg, on Mirapex 0.125 mg daily when necessary, iron studies to be obtained mite replacement 16. Possible postoperative ileus related to decreased bowel sounds and decreased NG tube output, improved Discharge plan: [facility] arrangements are completed Impression and plan of care have been directed as dictated by the signing physician. Kylah Begum nurse practitioner acting as scribe for signing physician.
--- NOTE | 2018-05-20 12:12 | P.PN ---
Subjective Progress Note Date: 05/20/18 This is a 78-year-old female patient of Dr. Lewis underlying history of dementia, diabetes mellitus type 2, hypertension, hyperlipidemia, who is currently a very poor historian. Patient provided some limited history that says chest discomfort and left shoulder discomfort, requiring ER evaluation. Patient was resting at that time, she denies any shortness of breath or diaphoresis no nausea or vomiting, no lightheadedness or dizziness, no syncope. EMS was called in, EKG was performed that shows acute ST segment elevation in the inferior leads, and was sent in directly to the cardiac director of cardiac cath lab and went for an emergent cardiac cath requiring drug-eluting stent involving the RCA from a 99% stenosis to 0% stenosis post-stenting. Patient was chest pain-free after the procedure, currently now requiring double antiplatelet platelet agents. Patient was last seen by Dr. Lewis 04/08/2018 for diabetic foot face-to -face encounter for diabetic shoes Particular history is positive for hematuria on seen by Dr. Martinez and was referred to [facility] Dr. Roberts [phone] for which bladder surgery would be performed in May 2018, for the suspicious mass highly suggestive of malignancy Echocardiogram performed 05/06/2018 normal sinus rhythm, EF 50-55%, basal inferolateral hypokinesia, thickened aortic valve, mild aortic regurgitation, mild TR, mild MR, right ventricular systolic pressure of 16, aortic root size is normal, normal pericardium Cardiac cath report 05/06/2018, Dr. Katz, showed right coronary artery need stenosis from a 99% to 0% using Xience drug-eluting stent 3.0 x 18 mm, through the right radial artery approach. Findings shows RCA distally with mild disease , PDA and PLV branches have mild disease, left main normal, left circumflex complex normal, however there is 30% to 40% occlusive disease after the first OM branch, proximal LAD mild disease, Patient was comfortable when seen in the presence of the son who is POA, full discussion was made regarding the intervention for the STEMI as well as the need to delay the bladder surgery as it would require treatment of the cardiac occlusive disease first and was recommended to have cardiac clearance to be off the double antiplatelet agents prior to the anticipated bladder surgery 05/07: Patient will be transferred out of the intensive care unit today to selective care. She denies having any chest pain or shortness of breath. She does continue to have small amount of bright red blood in her urine but no clots , positive sediment. She has been encouraged to drink a glass of water by her physician in [facility]. Ferrlecit will be ordered. 05/08: Patient is resting comfortably up in a chair. She is denying having any chest pain or shortness of breath. Patient continues to have bright red blood in her urine. She had a large amount in the evening with 6-7 large clots and a another episode in the morning without any clots. Recently hemoglobin this morning was 8. Patient was seen by urology a three-way Pleitez catheter was placed in manually irrigated with removal of 1 clots. Continues bladder irrigation will continue with manual irrigation of the catheter as needed. 05/09: This morning, patient has hemoglobin of 6.71 unit packed RBCs will be ordered. Dr. Blount has evaluated with plan for cystoscopy and fulguration today. She had Pleitez catheter placed yesterday for retention and has noted hematuria which has been present since admission. Patient denies any chest pain , no abdominal pain, no lightheadedness. BUN 25 and creatinine 1.23 and sodium 125. Blood sugars have been labile with range of 78-223. Vital signs are stable, afebrile. 05/10: Patient is currently on vent after cystoscopy, transurethral resection of bladder tumor, exploratory laparotomy with closure of bladder laceration. Continuous bladder irrigation into suprapubic tube and throughout the urethral catheter. Shows a return with faint of pink tinged urine. Patient is hemodynamically stable. She appears to be resting comfortably. The CBC 14.4, hemoglobin 7.8, sodium 118, chloride 91. We will obtain osmolarity, sodium level and a urine random sodium. 05/11: Patient continues to be on vent after cystoscopy, transurethral resection of bladder tumor, exploratory laparotomy with closure of bladder laceration. Continuous bladder irrigation into the super pubic tube and throughout the urethral catheter continues at a slower rate. The return still has a faint pink tinged urine. Patient continues to be hemodynamically stable. She appears to be resting comfortably. Nephrology consult completed IV fluids have been stopped. Sodium has improved to 120. We will stop the Zoloft follow nephrology's recommendations. Patient has not had any bowel movements and a small amount of output from her NG tube. We will obtain an abdominal x- ray. 05/12: Patient remains intubated and on mechanical ventilation. She is off sedation and not currently following directions well. Possible extubation today. She is able to nod that she is not having any pain. She has been afebrile and vital signs are stable. White count is 11.4 and hemoglobin 7.2, sodium is improved to 124, BUN 21 and creatinine 1.11. Patient is followed by multiple consultants. 05/13: Patient was successfully extubated yesterday afternoon. She is currently on Plavix and aspirin. Hemoglobin this morning is 6.5 and she is scheduled for 1 unit packed RBCs. Her vital signs have been stable, she is on 2 L nasal cannula. Patient will be transferred out of ICU today. She ate about 50% of her breakfast this morning. Dr. Martinez is planning to contact radiation oncology for treatment for her bladder cancer. 05/14: Patient remains in intensive care unit waiting for a bed. Blood pressure has been stable. Patient is currently on room air. She received Lasix 40 mg IV this morning. She did have a small amount of bleeding from the vaginal area. Pleitez catheter is blood tinged without clots with sufficient output. JOSE J drain has sanguinous drainage less than 100 mL over the past 24 hours. Patient did have a bowel movement yesterday which was liquid and C. difficile toxin was negative. Patient has not required pain medication. Dr. Martinez has discussed this case with Dr. Chiu radiation oncology and plan is to delay radiation for about 6 weeks to allow bladder to heal. Nephrology has ordered Ferrlecit for 3 doses starting today. Hemoglobin is 9.8, BUN 22 and creatinine 1.1. 05/15: Patient is on the cardiac stepdown unit. Hemoglobin is 9.2, BUN 25 creatinine 1.09. Blood sugars are running between 122 and 186. Chest x-ray shows resolution of previously seen pulmonary vascular congestion improvement of the trace bilateral pleural effusions. Last night, patient pulled out her urethral catheter and now there is more blood coming from the suprapubic catheter. Dr. Chávez continues to follow. Patient is on a 1500 mL fluid restriction. He has ordered magnesium replacement today. Physical therapy is recommending subacute rehab arrangements are being made for [facility]. Dr. Chiu has evaluated the patient with plan for radiation in 4-6 weeks and follow-up with him in 3 weeks. Patient is pleasantly confused and requesting to be discharged home. Her son is at the bedside and has been updated.. 05/16: Patient is sitting up in a recliner and is pleasantly confused. This morning, Pleitez bag is draining clear george urine. BUN 24 and creatinine 1.06. In yesterday's note, Dr. Martinez mention some debris moving her drain and will await his decision on this. Hemoglobin today is 9.9. No plan for any transfusion. The patient was prepared for discharge to [facility] but [facility] requires plan from oncology and diagnoses codes from oncology before they will accept patient. Anticipate patient will be here over the weekend and discharged on Saturday. 05/17: The half-way is waiting for information from oncology regarding plan of care and diagnoses codes. Patient is pleasantly confused and denies any new complaints. According to nursing, patient has been eating and drinking okay. No problems with diarrhea. Catheter noted to have small clots in blood-tinged urine from the suprapubic catheter. Anticipate discharge on Saturday to subacute rehab. 05/18: Patient is completed 3 doses of Ferrlecit. Patient is sitting up in bed and is awake and alert, more talkative and interactive today but remains pleasantly confused. Suprapubic catheter is draining bloody urine. We are anticipating discharge to [facility] tomorrow. 05/19: Awaiting finalization of the discharge plan. Patient's son is at the bedside and has been updated. Patient is sitting up in a recliner and appears to be comfortable. She does have blood-tinged urine with clots in suprapubic 05/20: Patient is found sitting in the recliner chair. She hasn't just finished working with PT and OT and walked well with them. Son has contacted her urologist at [facility] and is planning for radiation treatment to start immediately. Spoke with Dr. Plascencia regarding evaluation of the patient to determine need for chemotherapy/radiation therapy as patient will well not be accepted at subacute rehab until a clear plan is determined. Patient remains pleasantly confused. She denies any complaints. She continues to have blood- tinged urine with clots. Review Of Systems: Unable to assess due to patient's mental status, underlying dementia Objective - Vital Signs Vital signs: Vital Signs Temp 98.1 F 05/20/18 08:00 Pulse 72 05/20/18 08:00 Resp 18 05/20/18 08:00 BP 136/68 05/20/18 08:00 Pulse Ox 96 05/20/18 08:00 Intake & Output 05/19/18 05/20/18 05/20/18 18:59 06:59 18:59 Intake Total 120 Output Total 650 Balance -650 120 Weight 77.2 kg 77.5 kg Intake: Oral 120 Output: Urine 650 Other: Voiding Method Indwelling Catheter Ileal Conduit (Right) ABP, PAP, CO, CI - Last Documented Arterial Blood Pressure 112/37 - Exam General appearance: cooperative. Patient is in bed and appears to be comfortable - EENT Eyes: anicteric sclerae, EOMI, PERRLA, dentition normal, normal appearance ENT: hearing grossly normal, NA/AT, normal oropharynx - Neck Neck: normal ROM - Respiratory Respiratory: bilateral: CTA, negative: diminished, dullness, rales - Cardiovascular Rhythm: regular Heart sounds: normal: S1, S2. night monitor is normal sinus rhythm. Abnormal Heart Sounds: systolic murmur - Gastrointestinal General gastrointestinal: normal bowel sounds, tenderness (None), suprapubic catheter shows hematuria and small blood clots. - Integumentary Integumentary: normal, normal turgor - Neurologic Neurologic: CNII-XII intact - Musculoskeletal Musculoskeletal: gait normal, strength equal bilaterally - Psychiatric Psychiatric: A&O x's 1-2, appropriate affect, no intact judgment & insight, patient is pleasantly confused. - Labs CBC & Chem 7: 05/19/18 07:40 05/19/18 14:37 Labs: Abnormal Lab Results - Last 24 Hours (Table) 05/19/18 05/19/18 05/19/18 Range/Units 14:37 17:23 21:59 Sodium 127 L (137-145) mmol/L Chloride 93 L (98-107) mmol/L BUN 22 H (7-17) mg/dL Creatinine 1.11 H (0.52-1.04) mg/dL Glucose 133 H (74-99) mg/dL POC Glucose (mg/dL) 134 H 169 H (75-99) mg/dL 05/20/18 05/20/18 Range/Units 07:05 11:36 Sodium (137-145) mmol/L Chloride (98-107) mmol/L BUN (7-17) mg/dL Creatinine (0.52-1.04) mg/dL Glucose (74-99) mg/dL POC Glucose (mg/dL) 144 H 175 H (75-99) mg/dL Assessment and Plan Plan: 1. Acute inferior wall STEMI involving RCA requiring drug-eluting stent to 99% of stenosis down to 0% successful stenting, performed 05/06/2018 Dr. Marie patient currently is on Lipitor 80 mg daily, Tenormin 25 mg daily, Plavix 75 mg daily aspirin 81 mg daily 2. Diabetes mellitus type 2 insulin requiring, uncontrolled with hypoglycemia. Lantus discontinued continue NovoLog scale, hemoglobin A1c is 7.0. 3. Bladder cancer newly diagnosed presenting with cross hematuria, [facility] is anticipating bladder surgery around May 2018, Dr. Roberts, [phone] Blount consult appreciated. Cystoscopy, evacuation of clot , transverse resection of bladder tumor, exploratory laparotomy with closure of bladder laceration performed. Consult Dr. Plascencia. 4. Hypertensive Vascular disease. Continue atenolol. 5. Dysthymia, Zoloft 50 mg daily 6. Neurocognitive deficits with memory loss, on Namenda 10 mg PAD, patient is not on any anticholinesterase medication. 7. Insomnia, schedule melatonin 6 mg at bedtime. 8. GI prophylaxis with Pepcid 9. DVT prophylaxis, high risk known bladder cancer, with SCDs 10. Chronic blood loss anemia hemoglobin is 9.0, iron studies will be done 11. Acute kidney injury secondary to ATN secondary to hemodynamic instability and contrast-induced nephropathy with CKD stage III nephrotoxins will be avoided , consult with nephrology appreciated 12. Hyponatremia acute, secondary to large volume bladder irrigation and Hyzaar. Hyzaar was discontinued. Nephrology consult appreciated. 13. Hypomagnesemia, replacement with monitoring 14. Mild metabolic acidosis, and is not on metformin prior to admission, continue fluids for hydration 15. Restless leg, on Mirapex 0.125 mg daily when necessary, iron studies to be obtained mite replacement 16. Possible postoperative ileus related to decreased bowel sounds and decreased NG tube output, improved Discharge plan: [facility] once arrangements are completed Impression and plan of care have been directed as dictated by the signing physician. Kylah Begum nurse practitioner acting as scribe for signing physician.
--- NOTE | 2018-05-20 12:13 | CDI ---
Last Revision, May 2017 Documentation Clarification Form Date: 05/19/2018 8:48:00 AM From: Celia Bravo Admit Date: 05/06/2018 12:59:00 AM Patient Name: Reena Dowling Visit Number: [id number] Discharge Date: ATTENTION: The Clinical Documentation Specialists (CDI) and [facility] Coding Staff appreciate your assistance in clarifying documentation. Please respond to the clarification below the line at the bottom and electronically sign. The CDI & [facility] Coding staff will review the response and follow-up if needed. Please note: Queries are made part of the Legal Health Record. If you have any questions, please contact the author of this message via ITS. Praneeth Chi MD, Conflicting documentation has been found in the medical record. Patient admitted with STEMI. CXR 05/06: No heart failure seen. CXR 05/11: There is no heart failure nor confluent pneumonic infiltrate. PN 05/01: Chest x-ray showed no evidence of congestive heart failure, no evidence of infiltrates. PN 05/14 - states Chest x-ray suggestive of CHF with vascular congestion and pleural effusion PN 05/17: element of congestive heart failure was given 1 dose of Lasix yesterday Cardiology does not Mention CHF. History/Risk Factors: dementia, DM2, HTN, hyperlipidemia, CAD, bladder cancer Clinical Indicators: NO Edema NO shortness of breath Fluid Overload, 1500ml fluid restriction ECHO: EF 50-55% Treatment: IV Lasix x2 doses, Atenolol Patient is not on Lasix at home Heart healthy diet Strict I&O's In your opinion what is the most clinically appropriate diagnosis for this patient? CHF ruled in CHF ruled out If ruled in please document if it is: Acute Diastolic Acute on chronic Diastolic Chronic Diastolic Other: Unable to Determine: MTDD
[2018-05-20 12:43] LABS: Magnesium 1.2 mg/dL (1.6-2.3)
--- NOTE | 2018-05-20 13:05 | CDI ---
Last Revision, May 2017 Documentation Clarification Form Date: 05/20/18 From: Celia Bravo RN Admit Date: 05/06/2018 12:59:00 AM Patient Name: Nitesh Valles Visit Number: [id number] ATTENTION: The Clinical Documentation Specialists (CDI) and [facility] Coding Staff appreciate your assistance in clarifying documentation. Please respond to the clarification below the line at the bottom and electronically sign. The CDI & [facility] Coding staff will review the response and follow-up if needed. Please note: Queries are made part of the Legal Health Record. If you have any questions, please contact the author of this message via ITS. Praneeth White MD, Can you please render your opinion on the following documentation? Patient admitted with STEMI. Patient history/risk factors: Dementia, DM2, HTN, hyperlipidemia, CAD, bladder cancer Clinical Indicators: Blood pressure status post TURBT: 73/58 - 94/52 PN 05/11: Her blood pressure was marginal, and the patient required norepinephrine overnight. PN 05/10: Mild metabolic acidosis Treatment: IV Bolus: .9 1000ml x2, 500ML x1 Norepinephrine ICU monitoring Received a total of four units of RBC's Ferric Sodium Gluconate 110ml x 1 In your professional opinion, can you please specify the type of shock if known ? Septic Shock Cardiogenic Shock Cause Hypovolemic Shock Cause Other, please specify Unable to determine MTDD
[2018-05-20 16:25] LABS: Glucose,Whole Blood 173 mg/dL (75-99)
--- NOTE | 2018-05-20 20:03 | PN ---
PROGRESS NOTE The patient is seen for followup for hyponatremia. This morning she has sitting up in bed, comfortable, not in any acute distress. The patient's son is present at bedside. The patient has had some blood in her Pleitez catheter. EXAMINATION: This morning, blood pressure was 136/68, heart rate of 72 per minute. Patient is afebrile. Examination of the heart S1, S2. Examination lungs bilateral breath sounds are heard. Abdomen is soft, nontender. Exam of lower extremities shows no significant edema. PELT SHEARER exam is not performed. LABS: Show sodium of 127 from yesterday. ASSESSMENT: 1. Hyponatremia secondary to large volume bladder irrigation, currently improved. Serum sodium was down to 127 yesterday. I have advised the son to encourage increased protein intake and decrease free water intake. I will also give her 1 dose of IV Lasix and repeat sodium this afternoon. The patient is not receiving any IV fluids. 2. Bladder cancer scheduled to see urologist at [facility] for initiation of chemotherapy/radiation therapy. 3. Hematuria related to underlying bladder cancer. 4. Volume overload, currently improved. 5. Status post ST elevation myocardial infarction status post cardiac cath with coronary stent placement on May 14. PLAN: Lasix IV x1. Repeat labs this afternoon. We will maintain patient on a small dose of p.o. loop diuretics if serum sodium improves. MMODL / IJN: [id number] /
[2018-05-20 20:33] LABS: Glucose,Whole Blood 132 mg/dL (75-99)
[2018-05-20] MEDS: ATORVASTATIN 80 MG TAB PO SCH (22:12)
[2018-05-20] MEDS: MELATONIN 3 MG TABLET PO SCH (22:12)
--- NOTE | 2018-05-21 07:48 | CDI ---
Last Revision, May 2017 Documentation Clarification Form Date: 05/19/2018 8:48:00 AM From: Celia Bravo Admit Date: 05/06/2018 12:59:00 AM Patient Name: Reena Dowling Visit Number: [id number] ATTENTION: The Clinical Documentation Specialists (CDI) and [facility] Coding Staff appreciate your assistance in clarifying documentation. Please respond to the clarification below the line at the bottom and electronically sign. The CDI & [facility] Coding staff will review the response and follow-up if needed. Please note: Queries are made part of the Legal Health Record. If you have any questions, please contact the author of this message via ITS. Praneeth Chi MD, Conflicting documentation has been found in the medical record. Patient admitted with STEMI. CXR 05/06: No heart failure seen. CXR 05/11: There is no heart failure nor confluent pneumonic infiltrate. PN 05/01: Chest x-ray showed no evidence of congestive heart failure, no evidence of infiltrates. PN 05/14 - states Chest x-ray suggestive of CHF with vascular congestion and pleural effusion PN 05/17: element of congestive heart failure was given 1 dose of Lasix yesterday Cardiology does not Mention CHF. History/Risk Factors: dementia, DM2, HTN, hyperlipidemia, CAD, bladder cancer Clinical Indicators: NO Edema No shortness of breath Fluid Overload, 1500ml fluid restriction ECHO: EF 50-55% Treatment: IV Lasix x2 doses, Atenolol Patient is not on Lasix at home Heart healthy diet Strict I&O's In your opinion what is the most clinically appropriate diagnosis for this patient? CHF ruled in CHF ruled out If ruled in please document if it is: Acute Diastolic Acute on chronic Diastolic Chronic Diastolic Other: Unable to Determine: MTDD
--- NOTE | 2018-05-21 07:50 | CDI ---
Last Revision, May 2017 Documentation Clarification Form Date: 05/20/2018 1:05:00 PM From: Celia Bravo Admit Date: 05/06/2018 12:59:00 AM Patient Name: Reena Dowling Visit Number: [id number] ATTENTION: The Clinical Documentation Specialists (CDI) and [facility] Coding Staff appreciate your assistance in clarifying documentation. Please respond to the clarification below the line at the bottom and electronically sign. The CDI & [facility] Coding staff will review the response and follow-up if needed. Please note: Queries are made part of the Legal Health Record. If you have any questions, please contact the author of this message via ITS. Praneeth Chi MD, Can you please render your opinion on the following documentation? Patient admitted with STEMI. Patient history/risk factors: Dementia, DM2, HTN, hyperlipidemia, CAD, bladder cancer Clinical Indicators: Blood pressure status post TURBT : 73/58 - 94/52 PN 05/11: Her blood pressure was marginal, and the patient required norepinephrine overnight. PN 05/10: Mild metabolic acidosis Treatment: IV Bolus: .9 1000ml x2, 500ML x1 Norepinephrine ICU monitoring received a total of 4 unit RBC's Ferric Sodium Gluconate 110ml x 1 In your professional opinion, can you please specify the type of shock if known ? Septic Shock Cardiogenic Shock Cause Hypovolemic Shock Cause Other, please specify Unable to determine MTDD
[2018-05-21 07:54] LABS: Glucose,Whole Blood 166 mg/dL (75-99)
[2018-05-21] MEDS: INSULIN ASPART 100 UNIT/ML 1 ML 10 ML VIAL SQ SCH ×4 (08:15→21:46)
[2018-05-21] MEDS: MEMANTINE 10 MG TAB PO SCH ×2 (08:16→21:45)
[2018-05-21] MEDS: FUROSEMIDE 20 MG TAB PO SCH (08:16)
[2018-05-21] MEDS: PRAMIPEXOLE 0.25 MG TAB PO SCH ×2 (08:16→21:45)
[2018-05-21] MEDS: CLOPIDOGREL 75 MG TAB PO SCH (08:16)
[2018-05-21] MEDS: ASPIRIN 81 MG PO SCH (08:16)
[2018-05-21] MEDS: SERTRALINE 50 MG TAB PO SCH (08:16)
[2018-05-21] MEDS: ATENOLOL 25 MG TAB PO SCH (08:16)
[2018-05-21] MEDS: FAMOTIDINE 20 MG TAB PO SCH (08:16)
[2018-05-21 09:06] LABS: HCT 30.2 % (34.0-46.0); HGB 10.2 gm/dL (11.4-16.0); MCH 30.2 pg (25.0-35.0); MCHC 33.6 g/dL (31.0-37.0); MCV 89.8 fL (80.0-100.0); Mean Platelet Volume 6.5; Platelet Count 315 k/uL (150-450); RBC 3.36 m/uL (3.80-5.40); RDW 14.9 % (11.5-15.5); WBC 12.7 k/uL (3.8-10.6)
[2018-05-21 09:11] LABS: Potassium 4.3 mmol/L (3.5-5.1)
--- NOTE | 2018-05-21 11:19 | P.CONS ---
History of Present Illness - Reason for Consult Consult date: 05/21/18 bladder cancer treatment plan Requesting physician: Praneeth Lewis - Chief Complaint STEMI - History of Present Illness Mrs. Dowling is being seen for recommendations regarding treatment of her previously diagnosed stage TI grade 3 urothelial cancer. Patient initially had treatment with local resection of tumor and BCG. More recently the patient was found to have some muscle invasion and tumor growing from the outside of the bladder inward, per the patient's son-information from the [facility]. Patient was going to have a radical cystectomy but that was unable to be performed as the patient had a myocardial infarction that required angioplasty and drug-eluting stent as well as antiplatelet therapy. Patient is now having gross hematuria. She has been seen by urology. On 05/06 she had a TUR, exploratory laparotomy with closure of a bladder laceration. When seen today the patient is very lethargic, drifting off to sleep during our conversation, she did not exhibit any signs of discomfort during physical examination. Review of Systems ROS unobtainable: due to mental status Past Medical History Past Medical History: Coronary Artery Disease (CAD), Cancer, Chest Pain / Angina , Dementia, Diabetes Mellitus, Hyperlipidemia, Hypertension, Memory Impairment, Myocardial Infarction (IN), Osteoarthritis (OA) Additional Past Medical History / Comment(s): Restless leg syndrome, Bladder Cancer with Gross hematuria Last Myocardial Infarction Date:: 05/06/18 History of Any Multi-Drug Resistant Organisms: None Reported Past Surgical History: Cholecystectomy, Heart Catheterization With Stent Additional Past Surgical History / Comment(s): Arthroscopic knee surgery left, Left ankle surgery 09/17/2014, Past Anesthesia/Blood Transfusion Reactions: No Reported Reaction Date of Last Stent Placement:: 05/06/18 Smoking Status: Former smoker - Past Family History Father Family Medical History: Dementia Mother Family Medical History: Cancer (Pancreas) Sister(s) Family Medical History: Cancer (Lung cancer) Brother(s) Family Medical History: No Reported History Son(s) Family Medical History: No Reported History (Healthy) Medications and Allergies Home Medications Medication Instructions Recorded Confirmed Type Atenolol [Tenormin] 25 mg PO DAILY 09/17/14 05/06/18 History Famotidine [Pepcid] 20 mg PO BID 05/06/18 05/06/18 History Memantine [Namenda] 10 mg PO BID 05/06/18 05/06/18 History Pramipexole [Mirapex] 0.125 mg PO DAILY PRN 05/06/18 05/06/18 History Sertraline [Zoloft] 50 mg PO DAILY 05/06/18 05/06/18 History Aspirin 81 mg PO DAILY chew 05/16/18 Rx Atorvastatin [Lipitor] 80 mg PO HS tab 05/16/18 Rx Clopidogrel [Plavix] 75 mg PO DAILY tab 05/16/18 Rx HYDROcodone/APAP 5-325MG [Godley 1 each PO Q8HR PRN #9 tab 05/16/18 Rx 5-325] Insulin Aspart [NovoLOG 0 unit SQ ACHS vial 05/16/18 Rx (formulary)] Melatonin 6 mg PO HS tablet 05/16/18 Rx Nitroglycerin Sl Tabs [Nitrostat] 0.4 mg SUBLINGUAL Q5M PRN tab 05/16/18 Rx Sodium Chloride Tab 1 gm PO DAILY #30 tablet 05/16/18 Rx Allergies Allergy/AdvReac Type Severity Reaction Status Date / Time Penicillins AdvReac Mild Unknown Verified 05/06/18 16:12 Physical Exam Vitals: Vital Signs Temp Pulse Resp BP Pulse Ox 05/21/18 07:19 98.4 F 77 16 146/68 94 L 05/21/18 01:00 97.7 F 68 16 119/67 94 L 05/20/18 20:20 98.3 F 70 16 152/75 93 L 05/20/18 15:54 97.5 F L 71 16 145/71 95 Intake and Output 05/20/18 05/21/18 05/21/18 22:59 06:59 14:59 Intake Total 590 Output Total 1300 Balance -710 Intake: Oral 590 Output: Urine 1300 Other: Voiding Method Ileal Conduit (Left) Indwelling Catheter Weight 77.5 kg - Constitutional General appearance: morbidly obese, no acute distress - EENT Eyes: anicteric sclerae, EOMI ENT: hearing grossly normal - Neck Neck: no lymphadenopathy - Respiratory Respiratory: bilateral: CTA, diminished - Cardiovascular Heart sounds: normal: S1, S2 leg Peripheral Edema: bilateral: None - Gastrointestinal General gastrointestinal: soft - Genitourinary suprapubic catheter in place, dressing CDI, bloody urine in [place], few clots visible - Integumentary Integumentary: pale - Musculoskeletal Musculoskeletal: generalized weakness - Psychiatric arouses to voice and touch, does not stay awake for conversation, pt knew she was in the hospital Results CBC & Chem 7: 05/21/18 08:31 05/21/18 08:31 Labs: Abnormal Lab Results - Last 24 Hours (Table) 05/20/18 05/20/18 05/20/18 Range/Units 11:36 11:53 16:24 WBC (3.8-10.6) k/uL RBC (3.80-5.40) m/uL Hgb (11.4-16.0) gm/dL Hct (34.0-46.0) % Sodium 129 L (137-145) mmol/L Chloride (98-107) mmol/L BUN (7-17) mg/dL Glucose (74-99) mg/dL POC Glucose (mg/dL) 175 H 173 H (75-99) mg/dL Magnesium 1.2 L (1.6-2.3) mg/dL 05/20/18 05/21/18 05/21/18 Range/Units 20:31 07:52 08:31 WBC 12.7 H (3.8-10.6) k/uL RBC 3.36 L (3.80-5.40) m/uL Hgb 10.2 L (11.4-16.0) gm/dL Hct 30.2 L (34.0-46.0) % Sodium (137-145) mmol/L Chloride (98-107) mmol/L BUN (7-17) mg/dL Glucose (74-99) mg/dL POC Glucose (mg/dL) 132 H 166 H (75-99) mg/dL Magnesium (1.6-2.3) mg/dL 05/21/18 Range/Units 08:31 WBC (3.8-10.6) k/uL RBC (3.80-5.40) m/uL Hgb (11.4-16.0) gm/dL Hct (34.0-46.0) % Sodium 131 L (137-145) mmol/L Chloride 92 L (98-107) mmol/L BUN 18 H (7-17) mg/dL Glucose 156 H (74-99) mg/dL POC Glucose (mg/dL) (75-99) mg/dL Magnesium (1.6-2.3) mg/dL Chest x-ray: report reviewed Assessment and Plan (1) Bladder cancer Current Visit: Yes Status: Acute Priority: High Code(s): C67.9 - MALIGNANT NEOPLASM OF BLADDER, UNSPECIFIED SNOMED Code(s): 030974023 (2) ST elevation myocardial infarction (STEMI) Narrative/Plan: Recent procedure requires antiplatelet therapy, pt having gross hematuria secondary to bladder malignancy. Current Visit: Yes Status: Acute Priority: High Code(s): I21.3 - ST ELEVATION (STEMI) MYOCARDIAL INFARCTION OF [facility] SITE SNOMED Code(s): 455497050 Plan: Case was discussed with internal medicine Dr. Plascencia reviewed the patient's chart and notes from internal medicine, urology as well as surgical procedure notes. Dr. Plascencia discussed with the patient's son that postoperatively patient cannot have chemotherapy or radiation as it would impair and prolong healing and increase infection risk. Any cancer treatment would not begin for at least 3-4 weeks post operatively and be based on patient's healing process as well as performance status. Dr. Plascencia reviewed potential treatment options such as palliative radiation for symptom mgmt, low dose chemotherapy with concurrent radiation as treatment or surgery-this option for care is based on opinion from the [facility]. It was explained to the son by a surgeon at the [facility] the patient did not have any metastatic disease at the time of their evaluation. Currently, no evidence of metastatic disease but patient would need to be restaged after rehabilitation and recovery from surgery. It was also explained that any of the treatment options above will only be considered if the patient has a performance status that allows them to eat and be strong enough to perform most of their own ADLs, this includes being able to get back and forth to appointments. Recommendation is for an evaluation with radiation oncology. Patient can then be seen by medical oncology based on radiation oncology's opinion and evaluation of patient's ability to tolerate chemotherapy. Patient can be referred back to medical oncology at that time. All of the patient son's questions were answered, he verbalized understanding the recommendations. Time with Patient: Greater than 30 (>35min spent on pt, 50% counseling and coordinating care)
[2018-05-21 11:39] LABS: Glucose,Whole Blood 151 mg/dL (75-99)
--- NOTE | 2018-05-21 11:56 | CT ---
EXAMINATION TYPE: CT brain wo con DATE OF EXAM: 05/21/2018 COMPARISON: None HISTORY: 78-year-old female confusion, Altered mental status TECHNIQUE: Examination was done in axial plane without intravenous contrast. Coronal and sagittal r econstructions performed. CT DLP: 1079.4 mGycm Automated exposure control for dose reduction was used. FINDINGS: There is no evidence of acute intracranial hemorrhage, acute ischemic changes, mass, mass-effect, or extra-axial fluid collection. There is no effacement of cerebral sulci or basal subarachnoid cister ns. There is no hydrocephalus. There is no midline shift. Thompson-white matter distinction is preserv ed. Mild patchy subcortical hypodensity suggesting changes of chronic small vessel ischemic disease. Mild generalized supratentorial volume loss. Hyperostosis frontalis interna compatible with normal variat ion. Partially empty sella. Mucosal thickening with layering fluid right sphenoid sinus. Scattered mild mucosal thickening ethmoi d air cells. Mastoid air cells well pneumatized. Leftward nasal septal deviation. IMPRESSION: 1. Mild generalized atrophy. No acute intracranial abnormality seen. 2. Correlate for acute on chronic right sphenoid sinusitis.
--- NOTE | 2018-05-21 12:02 | P.PN ---
Subjective Progress Note Date: 05/21/18 This is a 78-year-old female patient of Dr. Lewis underlying history of dementia, diabetes mellitus type 2, hypertension, hyperlipidemia, who is currently a very poor historian. Patient provided some limited history that says chest discomfort and left shoulder discomfort, requiring ER evaluation. Patient was resting at that time, she denies any shortness of breath or diaphoresis no nausea or vomiting, no lightheadedness or dizziness, no syncope. EMS was called in, EKG was performed that shows acute ST segment elevation in the inferior leads, and was sent in directly to the cardiac lab support technician and went for an emergent cardiac cath requiring drug-eluting stent involving the RCA from a 99% stenosis to 0% stenosis post-stenting. Patient was chest pain-free after the procedure, currently now requiring double antiplatelet platelet agents. Patient was last seen by Dr. Lewis 04/08/2018 for diabetic foot face-to -face encounter for diabetic shoes Particular history is positive for hematuria on seen by Dr. Martinez and was referred to [facility] Dr. Roberts [phone] for which bladder surgery would be performed in May 2018, for the suspicious mass highly suggestive of malignancy Echocardiogram performed 05/06/2018 normal sinus rhythm, EF 50-55%, basal inferolateral hypokinesia, thickened aortic valve, mild aortic regurgitation, mild TR, mild MR, right ventricular systolic pressure of 16, aortic root size is normal, normal pericardium Cardiac cath report 05/06/2018, Dr. Katz, showed right coronary artery need stenosis from a 99% to 0% using Xience drug-eluting stent 3.0 x 18 mm, through the right radial artery approach. Findings shows RCA distally with mild disease , PDA and PLV branches have mild disease, left main normal, left circumflex complex normal, however there is 30% to 40% occlusive disease after the first OM branch, proximal LAD mild disease, Patient was comfortable when seen in the presence of the son who is POA, full discussion was made regarding the intervention for the STEMI as well as the need to delay the bladder surgery as it would require treatment of the cardiac occlusive disease first and was recommended to have cardiac clearance to be off the double antiplatelet agents prior to the anticipated bladder surgery 05/07: Patient will be transferred out of the intensive care unit today to selective care. She denies having any chest pain or shortness of breath. She does continue to have small amount of bright red blood in her urine but no clots , positive sediment. She has been encouraged to drink a glass of water by her physician in [facility]. Ferrlecit will be ordered. 05/08: Patient is resting comfortably up in a chair. She is denying having any chest pain or shortness of breath. Patient continues to have bright red blood in her urine. She had a large amount in the evening with 6-7 large clots and a another episode in the morning without any clots. Recently hemoglobin this morning was 8. Patient was seen by urology a three-way Pleitez catheter was placed in manually irrigated with removal of 1 clots. Continues bladder irrigation will continue with manual irrigation of the catheter as needed. 05/09: This morning, patient has hemoglobin of 6.71 unit packed RBCs will be ordered. Dr. Blount has evaluated with plan for cystoscopy and fulguration today. She had Pleitez catheter placed yesterday for retention and has noted hematuria which has been present since admission. Patient denies any chest pain , no abdominal pain, no lightheadedness. BUN 25 and creatinine 1.23 and sodium 125. Blood sugars have been labile with range of 78-223. Vital signs are stable, afebrile. 05/10: Patient is currently on vent after cystoscopy, transurethral resection of bladder tumor, exploratory laparotomy with closure of bladder laceration. Continuous bladder irrigation into suprapubic tube and throughout the urethral catheter. Shows a return with faint of pink tinged urine. Patient is hemodynamically stable. She appears to be resting comfortably. The CBC 14.4, hemoglobin 7.8, sodium 118, chloride 91. We will obtain osmolarity, sodium level and a urine random sodium. 05/11: Patient continues to be on vent after cystoscopy, transurethral resection of bladder tumor, exploratory laparotomy with closure of bladder laceration. Continuous bladder irrigation into the super pubic tube and throughout the urethral catheter continues at a slower rate. The return still has a faint pink tinged urine. Patient continues to be hemodynamically stable. She appears to be resting comfortably. Nephrology consult completed IV fluids have been stopped. Sodium has improved to 120. We will stop the Zoloft follow nephrology's recommendations. Patient has not had any bowel movements and a small amount of output from her NG tube. We will obtain an abdominal x- ray. 05/12: Patient remains intubated and on mechanical ventilation. She is off sedation and not currently following directions well. Possible extubation today. She is able to nod that she is not having any pain. She has been afebrile and vital signs are stable. White count is 11.4 and hemoglobin 7.2, sodium is improved to 124, BUN 21 and creatinine 1.11. Patient is followed by multiple consultants. 05/13: Patient was successfully extubated yesterday afternoon. She is currently on Plavix and aspirin. Hemoglobin this morning is 6.5 and she is scheduled for 1 unit packed RBCs. Her vital signs have been stable, she is on 2 L nasal cannula. Patient will be transferred out of ICU today. She ate about 50% of her breakfast this morning. Dr. Martinez is planning to contact radiation oncology for treatment for her bladder cancer. 05/14: Patient remains in intensive care unit waiting for a bed. Blood pressure has been stable. Patient is currently on room air. She received Lasix 40 mg IV this morning. She did have a small amount of bleeding from the vaginal area. Pleitez catheter is blood tinged without clots with sufficient output. JOSE J drain has sanguinous drainage less than 100 mL over the past 24 hours. Patient did have a bowel movement yesterday which was liquid and C. difficile toxin was negative. Patient has not required pain medication. Dr. Martinez has discussed this case with Dr. Chiu radiation oncology and plan is to delay radiation for about 6 weeks to allow bladder to heal. Nephrology has ordered Ferrlecit for 3 doses starting today. Hemoglobin is 9.8, BUN 22 and creatinine 1.1. 05/15: Patient is on the cardiac stepdown unit. Hemoglobin is 9.2, BUN 25 creatinine 1.09. Blood sugars are running between 122 and 186. Chest x-ray shows resolution of previously seen pulmonary vascular congestion improvement of the trace bilateral pleural effusions. Last night, patient pulled out her urethral catheter and now there is more blood coming from the suprapubic catheter. Dr. Chávez continues to follow. Patient is on a 1500 mL fluid restriction. He has ordered magnesium replacement today. Physical therapy is recommending subacute rehab arrangements are being made for [facility]. Dr. Chiu has evaluated the patient with plan for radiation in 4-6 weeks and follow-up with him in 3 weeks. Patient is pleasantly confused and requesting to be discharged home. Her son is at the bedside and has been updated.. 05/16: Patient is sitting up in a recliner and is pleasantly confused. This morning, Pleitez bag is draining clear george urine. BUN 24 and creatinine 1.06. In yesterday's note, Dr. Martinez mention some debris moving her drain and will await his decision on this. Hemoglobin today is 9.9. No plan for any transfusion. The patient was prepared for discharge to [facility] but [facility] requires plan from oncology and diagnoses codes from oncology before they will accept patient. Anticipate patient will be here over the weekend and discharged on Saturday. 05/17: The [facility]dc is waiting for information from oncology regarding plan of care and diagnoses codes. Patient is pleasantly confused and denies any new complaints. According to nursing, patient has been eating and drinking okay. No problems with diarrhea. Catheter noted to have small clots in blood-tinged urine from the suprapubic catheter. Anticipate discharge on Saturday to subacute rehab. 05/18: Patient is completed 3 doses of Ferrlecit. Patient is sitting up in bed and is awake and alert, more talkative and interactive today but remains pleasantly confused. Suprapubic catheter is draining bloody urine. We are anticipating discharge to [facility] tomorrow. 05/19: Awaiting finalization of the discharge plan. Patient's son is at the bedside and has been updated. Patient is sitting up in a recliner and appears to be comfortable. She does have blood-tinged urine with clots in suprapubic 05/20: Patient is found sitting in the recliner chair. She hasn't just finished working with PT and OT and walked well with them. Son has contacted her urologist at [facility] and is planning for radiation treatment to start immediately. Spoke with Dr. Plascencia regarding evaluation of the patient to determine need for chemotherapy/radiation therapy as patient will well not be accepted at subacute rehab until a clear plan is determined. Patient remains pleasantly confused. She denies any complaints. She continues to have blood- tinged urine with clots. 05/21: Patient has been seen by oncology with recommendations as patient wouldn' t need to be restaged after rehabilitation and recovery from surgery. Treatment options would be considered at that time. There is no current plan for chemotherapy and the soonest that radiation therapy could start would be 3- 4 weeks secondary to the laceration that she is recovering from. The patient is in bed and awakens to verbal stimuli but she is more lethargic today from yesterday. Son is concerned that she has had a stroke although there is no one- sided weakness noted. CAT scan of the brain ordered. Hemoglobin 10.2, creatinine 0.98. Blood sugars been running 132-166. Dr. Pan has ordered Lasix 20 mg daily for hypovolemia. [facility] is no longer able to accept the patient is now better as available. Social work is to find a second choice for the family. We will plan to hold discharge until arrangements are made for subacute rehab. Review Of Systems: Unable to assess due to patient's mental status, underlying dementia Objective - Vital Signs Vital signs: Vital Signs Temp 98.4 F 05/21/18 07:19 Pulse 77 05/21/18 07:19 Resp 16 05/21/18 07:19 BP 146/68 05/21/18 07:19 Pulse Ox 94 L 05/21/18 07:19 Intake & Output 05/20/18 05/21/18 05/21/18 18:59 06:59 18:59 Intake Total 120 590 Output Total 1300 Balance 120 -710 Weight 77.5 kg Intake: Oral 120 590 Output: Urine 1300 Other: Voiding Method Ileal Conduit (Left) Indwelling Catheter ABP, PAP, CO, CI - Last Documented Arterial Blood Pressure 112/37 - Exam General appearance: cooperative. Patient is in bed and appears to be comfortable. Patient is sleeping arouses easily to verbal stimuli. Patient is not talkative today - EENT Eyes: anicteric sclerae, EOMI, PERRLA, dentition normal, normal appearance ENT: hearing grossly normal, NA/AT, normal oropharynx - Neck Neck: normal ROM - Respiratory Respiratory: bilateral: CTA, negative: diminished, dullness, rales - Cardiovascular Rhythm: regular Heart sounds: normal: S1, S2. cardiac monitor is normal sinus rhythm. Abnormal Heart Sounds: systolic murmur - Gastrointestinal General gastrointestinal: normal bowel sounds, tenderness (None), suprapubic catheter shows hematuria and small blood clots. - Integumentary Integumentary: normal, normal turgor - Neurologic Neurologic: CNII-XII intact - Musculoskeletal Musculoskeletal: gait normal, strength equal bilaterally - Psychiatric Psychiatric: A&O x's 1, appropriate affect, no intact judgment & insight, patient is pleasantly confused. - Labs CBC & Chem 7: 05/21/18 08:31 05/21/18 08:31 Labs: Abnormal Lab Results - Last 24 Hours (Table) 05/20/18 05/20/18 05/20/18 Range/Units 11:53 16:24 20:31 WBC (3.8-10.6) k/uL RBC (3.80-5.40) m/uL Hgb (11.4-16.0) gm/dL Hct (34.0-46.0) % Sodium 129 L (137-145) mmol/L Chloride (98-107) mmol/L BUN (7-17) mg/dL Glucose (74-99) mg/dL POC Glucose (mg/dL) 173 H 132 H (75-99) mg/dL Magnesium 1.2 L (1.6-2.3) mg/dL 05/21/18 05/21/18 05/21/18 Range/Units 07:52 08:31 08:31 WBC 12.7 H (3.8-10.6) k/uL RBC 3.36 L (3.80-5.40) m/uL Hgb 10.2 L (11.4-16.0) gm/dL Hct 30.2 L (34.0-46.0) % Sodium 131 L (137-145) mmol/L Chloride 92 L (98-107) mmol/L BUN 18 H (7-17) mg/dL Glucose 156 H (74-99) mg/dL POC Glucose (mg/dL) 166 H (75-99) mg/dL Magnesium (1.6-2.3) mg/dL 05/21/18 Range/Units 11:38 WBC (3.8-10.6) k/uL RBC (3.80-5.40) m/uL Hgb (11.4-16.0) gm/dL Hct (34.0-46.0) % Sodium (137-145) mmol/L Chloride (98-107) mmol/L BUN (7-17) mg/dL Glucose (74-99) mg/dL POC Glucose (mg/dL) 151 H (75-99) mg/dL Magnesium (1.6-2.3) mg/dL Assessment and Plan Plan: 1. Acute inferior wall STEMI involving RCA requiring drug-eluting stent to 99% of stenosis down to 0% successful stenting, performed 05/06/2018 Dr. Marie patient currently is on Lipitor 80 mg daily, Tenormin 25 mg daily, Plavix 75 mg daily aspirin 81 mg daily 2. Diabetes mellitus type 2 insulin requiring, uncontrolled with hypoglycemia. Lantus discontinued continue NovoLog scale, hemoglobin A1c is 7.0. 3. Bladder cancer newly diagnosed presenting with cross hematuria, [facility] is anticipating bladder surgery around May 2018, Dr. Roberts, [phone] Blount consult appreciated. Cystoscopy, evacuation of clot , transverse resection of bladder tumor, exploratory laparotomy with closure of bladder laceration performed. Consult Dr. Plascencia appreciated. 4. Hypertensive Vascular disease. Continue atenolol. 5. Dysthymia, Zoloft 50 mg daily 6. Neurocognitive deficits with memory loss, on Namenda 10 mg PAD, patient is not on any anticholinesterase medication. 7. Insomnia, schedule melatonin 6 mg at bedtime. 8. GI prophylaxis with Pepcid 9. DVT prophylaxis, high risk known bladder cancer, with SCDs 10. Chronic blood loss anemia hemoglobin is 9.0, iron studies will be done 11. Acute kidney injury secondary to ATN secondary to hemodynamic instability and contrast-induced nephropathy with CKD stage III nephrotoxins will be avoided , consult with nephrology appreciated 12. Hyponatremia acute, secondary to large volume bladder irrigation and Hyzaar. Hyzaar was discontinued. Nephrology consult appreciated. Oral Lasix 20 mg daily 13. Hypomagnesemia, replacement with monitoring 14. Mild metabolic acidosis, and is not on metformin prior to admission, continue fluids for hydration 15. Restless leg, on Mirapex 0.125 mg daily when necessary, iron studies to be obtained mite replacement 16. Possible postoperative ileus related to decreased bowel sounds and decreased NG tube output, improved 17. Hypovolemic shock in the postop period, unexpected from surgery. 18. Acute and chronic systolic heart failure. Discharge plan: [facility] but no room is available. Social work to find second choice from family. Impression and plan of care have been directed as dictated by the signing physician. Kylah Begum nurse practitioner acting as scribe for signing physician.
[2018-05-21 16:51] LABS: Glucose,Whole Blood 129 mg/dL (75-99)
[2018-05-21 19:53] LABS: Glucose,Whole Blood 208 mg/dL (75-99)
--- NOTE | 2018-05-21 20:12 | PN ---
PROGRESS NOTE Patient is seen for followup for hyponatremia. Patient was given a dose of Lasix yesterday. Her sodium level has improved. She is up to 131 today. Serum creatinine is 0.98. This morning patient is lying in bed. She is comfortable. There are plans for discharge with initiation of radiation therapy as outpatient. On examination, blood pressure was this morning 146/68, heart rate of 65 per minute. Patient is afebrile. EXAMINATION OF THE HEART: S1, S2. EXAMINATION OF LUNGS: Decreased breath sounds at the bases. ABDOMEN: Soft, non-tender. Examination of lower extremities shows trace edema bilaterally. COURT RECORDER exam is grossly intact. Labs show sodium 131, potassium 4.3, BUN 18, serum creatinine 0.98, calcium 9.0. ASSESSMENT: 1. Hyponatremia associated with large-volume bladder irrigation, currently improved. Patient is currently mildly hypervolemic and maintained on low-dose Lasix, which we will continue for now. She is also encouraged to increase her oral intake. 2. Bladder cancer with plans for radiation therapy as outpatient. 3. Hematuria related to underlying cancer. 4. Status post ST-elevation myocardial infarction, status post cardiac catheterization with coronary stent placement on May 14. PLAN: Continue with oral Lasix. Monitor labs periodically as outpatient. MMODL / IJN: [id number] /
[2018-05-21] MEDS: ATORVASTATIN 80 MG TAB PO SCH (21:45)
[2018-05-21] MEDS: MELATONIN 3 MG TABLET PO SCH (21:45)
[2018-05-22 07:14] LABS: Glucose,Whole Blood 142 mg/dL (75-99)
[2018-05-22] MEDS: INSULIN ASPART 100 UNIT/ML 1 ML 10 ML VIAL SQ SCH ×2 (07:33→12:38)
--- NOTE | 2018-05-22 08:20 | P.DS ---
Providers Date of admission: 05/06/18 00:59 Expected date of discharge: 05/22/18 Attending physician: Fina Briseno Consults: 05/06/18 00:55 Consult Physician Stat Consulting Provider: Belgica Cordova Consult Reason/Comments: STEMI ACTIVATION COMPLETE Do you want consulting provider notified?: Yes 05/06/18 02:36 Consult Physician Routine Consulting Provider: Belgica Cordova Consult Reason/Comments: Post Interventional patient Do you want consulting provider notified?: Already Contacted 05/07/18 19:16 Consult Physician Urgent Consulting Provider: Abdoulaye Fitch Consult Reason/Comments: worsening hematuria, known bladder cancer Do you want consulting provider notified?: Yes 05/09/18 21:07 Consult Physician Routine Consulting Provider: Ryder Dsouza Consult Reason/Comments: Pulmonary/ICU management Do you want consulting provider notified?: Yes 05/10/18 14:25 Consult Physician Routine Consulting Provider: Keisha Pan Consult Reason/Comments: hypertonic hyponatermia Do you want consulting provider notified?: Yes 05/15/18 11:45 Consult Physician Stat Consulting Provider: Yariel Chiu Consult Reason/Comments: bladder CA Do you want consulting provider notified?: Already Contacted 05/20/18 10:53 Consult Physician Routine Consulting Provider: Sanjiv Plascencia Consult Reason/Comments: bladder cancer Do you want consulting provider notified?: Yes Primary care physician: Praneeth Lewis [facility] Course: This is a 78-year-old pleasant female patient of Dr. Joshua Cerna underlying history of dementia, diabetes mellitus type 2, hypertension, hyperlipidemia, who is currently a very poor historian. Patient provided some limited history that says chest discomfort and left shoulder discomfort, requiring ER evaluation. Patient was resting at that time, she denies any shortness of breath or diaphoresis no nausea or vomiting, no lightheadedness or dizziness, no syncope. EMS was called in, EKG was performed that shows acute ST segment elevation in the inferior leads, and was sent in directly to the cardiac slab polisher and went for an emergent cardiac cath requiring drug-eluting stent involving the RCA from a 99% stenosis to 0% stenosis post-stenting. Patient was chest pain-free after the procedure, currently now requiring double antiplatelet platelet agents. Patient was last seen by Dr. Lewis 04/08/2018 for diabetic foot [id number] encounter for diabetic shoes Particular history is positive for hematuria on seen by Dr. Martinez and was referred to [facility] Dr. Roberts [phone] for which bladder surgery would be performed in May 2018, for the suspicious mass highly suggestive of malignancy Echocardiogram performed 05/06/2018 normal sinus rhythm, EF 50-55%, basal inferolateral hypokinesia, thickened aortic valve, mild aortic regurgitation, mild TR, mild MR, right ventricular systolic pressure of 16, aortic root size is normal, normal pericardium Cardiac cath report 05/06/2018, Dr. Katz, showed right coronary artery need stenosis from a 99% to 0% using Xience drug-eluting stent 3.0 x 18 mm, through the right radial artery approach. Findings shows RCA distally with mild disease , PDA and PLV branches have mild disease, left main normal, left circumflex complex normal, however there is 30% to 40% occlusive disease after the first OM branch, proximal LAD mild disease, Patient was comfortable when seen in the presence of the son who is POA, full discussion was made regarding the intervention for the STEMI as well as the need to delay the bladder surgery as it would require treatment of the cardiac occlusive disease first and was recommended to have cardiac clearance to be off the double antiplatelet agents prior to the anticipated bladder surgery 05/07: Patient will be transferred out of the intensive care unit today to selective care. She denies having any chest pain or shortness of breath. She does continue to have small amount of bright red blood in her urine but no clots , positive sediment. She has been encouraged to drink a glass of water by her physician in [facility]. Ferrlecit will be ordered. 05/08: Patient is resting comfortably up in a chair. She is denying having any chest pain or shortness of breath. Patient continues to have bright red blood in her urine. She had a large amount in the evening with 6-7 large clots and a another episode in the morning without any clots. Recently hemoglobin this morning was 8. Patient was seen by urology a three-way Pleitez catheter was placed in manually irrigated with removal of 1 clots. Continues bladder irrigation will continue with manual irrigation of the catheter as needed. 05/09: This morning, patient has hemoglobin of 6.71 unit packed RBCs will be ordered. Dr. Blount has evaluated with plan for cystoscopy and fulguration today. She had Pleitez catheter placed yesterday for retention and has noted hematuria which has been present since admission. Patient denies any chest pain , no abdominal pain, no lightheadedness. BUN 25 and creatinine 1.23 and sodium 125. Blood sugars have been labile with range of 78-223. Vital signs are stable, afebrile. 05/10: Patient is currently on vent after cystoscopy, transurethral resection of bladder tumor, exploratory laparotomy with closure of bladder laceration. Continuous bladder irrigation into suprapubic tube and throughout the urethral catheter. Shows a return with faint of pink tinged urine. Patient is hemodynamically stable. She appears to be resting comfortably. The CBC 14.4, hemoglobin 7.8, sodium 118, chloride 91. We will obtain osmolarity, sodium level and a urine random sodium. 05/11: Patient continues to be on vent after cystoscopy, transurethral resection of bladder tumor, exploratory laparotomy with closure of bladder laceration. Continuous bladder irrigation into the super pubic tube and throughout the urethral catheter continues at a slower rate. The return still has a faint pink tinged urine. Patient continues to be hemodynamically stable. She appears to be resting comfortably. Nephrology consult completed IV fluids have been stopped. Sodium has improved to 120. We will stop the Zoloft follow nephrology's recommendations. Patient has not had any bowel movements and a small amount of output from her NG tube. We will obtain an abdominal x- ray. 05/12: Patient remains intubated and on mechanical ventilation. She is off sedation and not currently following directions well. Possible extubation today. She is able to nod that she is not having any pain. She has been afebrile and vital signs are stable. White count is 11.4 and hemoglobin 7.2, sodium is improved to 124, BUN 21 and creatinine 1.11. Patient is followed by multiple consultants. 05/13: Patient was successfully extubated yesterday afternoon. She is currently on Plavix and aspirin. Hemoglobin this morning is 6.5 and she is scheduled for 1 unit packed RBCs. Her vital signs have been stable, she is on 2 L nasal cannula. Patient will be transferred out of ICU today. She ate about 50% of her breakfast this morning. Dr. Martinez is planning to contact radiation oncology for treatment for her bladder cancer. 05/14: Patient remains in intensive care unit waiting for a bed. Blood pressure has been stable. Patient is currently on room air. She received Lasix 40 mg IV this morning. She did have a small amount of bleeding from the vaginal area. Pleitez catheter is blood tinged without clots with sufficient output. JOSE J drain has sanguinous drainage less than 100 mL over the past 24 hours. Patient did have a bowel movement yesterday which was liquid and C. difficile toxin was negative. Patient has not required pain medication. Dr. Martinez has discussed this case with Dr. Chiu radiation oncology and plan is to delay radiation for about 6 weeks to allow bladder to heal. Nephrology has ordered Ferrlecit for 3 doses starting today. Hemoglobin is 9.8, BUN 22 and creatinine 1.1. 05/15: Patient is on the cardiac stepdown unit. Hemoglobin is 9.2, BUN 25 creatinine 1.09. Blood sugars are running between 122 and 186. Chest x-ray shows resolution of previously seen pulmonary vascular congestion improvement of the trace bilateral pleural effusions. Last night, patient pulled out her urethral catheter and now there is more blood coming from the suprapubic catheter. Dr. Chávez continues to follow. Patient is on a 1500 mL fluid restriction. He has ordered magnesium replacement today. Physical therapy is recommending subacute rehab arrangements are being made for [facility]. Dr. Chiu has evaluated the patient with plan for radiation in 4-6 weeks and follow-up with him in 3 weeks. Patient is pleasantly confused and requesting to be discharged home. Her son is at the bedside and has been updated.. 05/16: Patient is sitting up in a recliner and is pleasantly confused. This morning, Pleitez bag is draining clear george urine. BUN 24 and creatinine 1.06. In yesterday's note, Dr. Martinez mention some debris moving her drain and will await his decision on this. Hemoglobin today is 9.9. No plan for any transfusion. 05/17: The assisted is waiting for information from oncology regarding plan of care and diagnoses codes. Patient is pleasantly confused and denies any new complaints. According to nursing, patient has been eating and drinking okay. No problems with diarrhea. Catheter noted to have small clots in blood-tinged urine from the suprapubic catheter. Anticipate discharge on Saturday to subacute rehab. 05/18: Patient is completed 3 doses of Ferrlecit. Patient is sitting up in bed and is awake and alert, more talkative and interactive today but remains pleasantly confused. Suprapubic catheter is draining bloody urine. We are anticipating discharge to [facility] tomorrow. 05/19: Awaiting finalization of the discharge plan. Patient's son is at the bedside and has been updated. Patient is sitting up in a recliner and appears to be comfortable. She does have blood-tinged urine with clots in suprapubic 05/20: Patient is found sitting in the recliner chair. She hasn't just finished working with PT and OT and walked well with them. Son has contacted her urologist at [facility] and is planning for radiation treatment to start immediately. Spoke with Dr. Plascencia regarding evaluation of the patient to determine need for chemotherapy/radiation therapy as patient will well not be accepted at subacute rehab until a clear plan is determined. Patient remains pleasantly confused. She denies any complaints. She continues to have blood- tinged urine with clots. 05/21: Patient has been seen by oncology with recommendations as patient wouldn' t need to be restaged after rehabilitation and recovery from surgery. Treatment options would be considered at that time. There is no current plan for chemotherapy and the soonest that radiation therapy could start would be 3- 4 weeks secondary to the laceration that she is recovering from. The patient is in bed and awakens to verbal stimuli but she is more lethargic today from yesterday. Son is concerned that she has had a stroke although there is no one- sided weakness noted. CAT scan of the brain ordered. Hemoglobin 10.2, creatinine 0.98. Blood sugars been running 132-166. Dr. Pan has ordered Lasix 20 mg daily for hypovolemia. [facility] is no longer able to accept the patient is now better as available. Social work is to find a second choice for the family. We will plan to hold discharge until arrangements are made for subacute rehab. 05/22: CAT scan of the brain shows mild generalized atrophy. No acute intracranial abnormality seen. Dr. Pan has recommended continuing oral Lasix and monitor labs periodically as an outpatient. Patient is sitting up in bed and mental status appears to be at baseline. Patient will be discharged to [facility] once arrangements are completed. Discharge diagnoses: 1. Acute inferior wall STEMI involving RCA requiring drug-eluting stent to 99% of stenosis down to 0% successful stenting, performed 05/06/2018 Dr. Marie 2. Diabetes mellitus type 2 insulin requiring, uncontrolled with hypoglycemia. 3. Bladder cancer newly diagnosed presenting with cross hematuria, [facility] is anticipating bladder surgery around May 2018, Dr. Roberts, urologist. Status post Cystoscopy, evacuation of clot, transverse resection of bladder tumor, exploratory laparotomy with closure of bladder laceration performed during this hospitalization. 4. Hypertensive Vascular disease. 5. Dysthymia 6. Neurocognitive deficits with memory loss secondary to dementia 7. Insomnia 8. GI prophylaxis 9. DVT prophylaxis 10. Acute and chronic blood loss anemia status post transfusion of 4 units of packed RBCs, postop complication not expected 11. Acute kidney injury secondary to ATN secondary to hemodynamic instability and contrast-induced nephropathy with CKD stage III 12. Hyponatremia acute, secondary to large volume bladder irrigation and Hyzaar and SIADH. Hyzaar was discontinued. 13. Hypomagnesemia 14. Mild metabolic acidosis 15. Restless leg 16. Possible postoperative ileus, resolved 17. Hypovolemic shock in the postop period, unexpected from surgery. 18. Acute and chronic systolic heart failure. Discharge plan: Subacute rehab Impression and plan of care have been directed as dictated by the signing physician. Kylah Begum nurse practitioner acting as scribe for signing physician. Patient Condition at Discharge: Good Plan - Discharge Summary New Discharge Prescriptions: New Aspirin 81 mg PO DAILY chew Atorvastatin [Lipitor] 80 mg PO HS tab Clopidogrel [Plavix] 75 mg PO DAILY tab HYDROcodone/APAP 5-325MG [[place] 5-325] 1 each PO Q8HR PRN #9 tab PRN Reason: Pain Insulin Aspart [NovoLOG (formulary)] 0 unit SQ ACHS vial Melatonin 6 mg PO HS tablet Nitroglycerin Sl Tabs [Nitrostat] 0.4 mg SUBLINGUAL Q5M PRN tab PRN Reason: Chest Pain Sodium Chloride Tab 1 gm PO DAILY #30 tablet Furosemide [Lasix] 20 mg PO DAILY tab Continue Atenolol [Tenormin] 25 mg PO DAILY Famotidine [Pepcid] 20 mg PO BID Sertraline [Zoloft] 50 mg PO DAILY Pramipexole [Mirapex] 0.125 mg PO DAILY PRN PRN Reason: RESTLESS LEGS Memantine [Namenda] 10 mg PO BID Discontinued Pravastatin Sodium [Pravachol] 40 mg PO HS Insulin Glargine,Hum.rec.anlog [Lantus Solostar] 55 unit SQ DAILY Losartan/Hydrochlorothiazide [Hyzaar 100-25 Tablet] 1 tab PO DAILY Ginkgo Biloba [place] Extract [Ginkgo] 60 mg PO BID Turmeric Root Extract [Turmeric] 500 mg PO DAILY Ubidecarenone [Co Q-10] 200 mg PO DAILY Discharge Medication List Atenolol [Tenormin] 25 mg PO DAILY 09/17/14 [History] Famotidine [Pepcid] 20 mg PO BID 05/06/18 [History] Memantine [Namenda] 10 mg PO BID 05/06/18 [History] Pramipexole [Mirapex] 0.125 mg PO DAILY PRN 05/06/18 [History] Sertraline [Zoloft] 50 mg PO DAILY 05/06/18 [History] Aspirin 81 mg PO DAILY chew 05/16/18 [Rx] Atorvastatin [Lipitor] 80 mg PO HS tab 05/16/18 [Rx] Clopidogrel [Plavix] 75 mg PO DAILY tab 05/16/18 [Rx] HYDROcodone/APAP 5-325MG [[place] 5-325] 1 each PO Q8HR PRN #9 tab 05/16/18 [Rx] Insulin Aspart [NovoLOG (formulary)] 0 unit SQ ACHS vial 05/16/18 [Rx] Melatonin 6 mg PO HS tablet 05/16/18 [Rx] Nitroglycerin Sl Tabs [Nitrostat] 0.4 mg SUBLINGUAL Q5M PRN tab 05/16/18 [Rx] Sodium Chloride Tab 1 gm PO DAILY #30 tablet 05/16/18 [Rx] Furosemide [Lasix] 20 mg PO DAILY tab 05/22/18 [Rx] Follow up Appointment(s)/Referral(s): [facility] [Provider Group] - 1 Week (Dr. Tate Office will call with appointment date and time. ) Praneeth Lewis MD [Primary Care Provider] - 1 Week (after discharge from [facility]) Yariel Chiu MD [STAFF PHYSICIAN] - 06/02/18 9:30 am (Follow-up within 5 days from discharge of [facility]. Appt on Saturday,06/02/18 at 9:30 am at [facility]. Call if need to change appt to [phone]. ) [facility], [NON-STAFF] - Narendra Martinez MD [STAFF PHYSICIAN] - 05/23/18 9:20 am (Either 05/21 or 05/23) Ambulatory/Diagnostic Orders: Basic Metabolic Panel [LAB.AMB] Location: None Selected Complete Blood Count w/diff [LAB.AMB] Location: None Selected Patient Instructions/Handouts: *Surgery [facility] - After Heart Catheterization - Cuff Knitter Instructions, Left Heart Catheterization (DC) Discharge Disposition: TRANSFER TO SNF/ECF
[2018-05-22] MEDS: SERTRALINE 50 MG TAB PO SCH (09:26)
[2018-05-22] MEDS: ASPIRIN 81 MG PO SCH (09:26)
[2018-05-22] MEDS: FUROSEMIDE 20 MG TAB PO SCH (09:26)
[2018-05-22] MEDS: CLOPIDOGREL 75 MG TAB PO SCH (09:26)
[2018-05-22] MEDS: PRAMIPEXOLE 0.25 MG TAB PO SCH (09:26)
[2018-05-22] MEDS: ATENOLOL 25 MG TAB PO SCH (09:26)
[2018-05-22] MEDS: MEMANTINE 10 MG TAB PO SCH (09:26)
[2018-05-22] MEDS: FAMOTIDINE 20 MG TAB PO SCH (09:26)
--- NOTE | 2018-05-22 11:45 | P.PN ---
Subjective Progress Note Date: 05/21/18 The patient is still in the hospital due to insurance and medical reasons. I discussed with the son about options of treatment again. The urine is light tea -colored. We discussed the most recent pathology. We discussed observation versus radiation therapy. I also discussed more aggressive therapy. The [facility] is recommending radiation therapy immediately. My feeling given the status of the recent surgery that I would wait if possible a few more weeks before proceeding with radiation therapy. He will let me know his final thoughts in the near future. The julia will be removed. I will see the patient in the office in a week for catheter removal. Objective - Vital Signs Vital signs: Vital Signs Temp 97.9 F 05/22/18 06:55 Pulse 77 05/22/18 06:55 Resp 12 05/22/18 08:00 BP 157/77 05/22/18 06:55 Pulse Ox 93 L 05/22/18 06:55 Intake & Output 05/21/18 05/22/18 05/22/18 18:59 06:59 18:59 Intake Total 100 Output Total 150 152 Balance -150 -52 Weight 75 kg 75 kg Intake: Oral 100 Output: Urine 150 150 Stool 2 Other: Voiding Method Indwelling Catheter Indwelling Catheter # Voids 0 ABP, PAP, CO, CI - Last Documented Arterial Blood Pressure 112/37 - Labs CBC & Chem 7: 05/21/18 08:31 05/21/18 08:31 Labs: Abnormal Lab Results - Last 24 Hours (Table) 05/21/18 05/21/18 05/22/18 Range/Units 16:49 19:51 07:12 POC Glucose (mg/dL) 129 H 208 H 142 H (75-99) mg/dL
--- NOTE | 2018-05-22 11:46 | P.PN ---
Subjective Progress Note Date: 05/22/18 The patient urine is light tea color. She'll be discharged to a nursing facility. I'll see her in a week for catheter removal. Objective - Vital Signs Vital signs: Vital Signs Temp 97.9 F 05/22/18 06:55 Pulse 77 05/22/18 06:55 Resp 12 05/22/18 08:00 BP 157/77 05/22/18 06:55 Pulse Ox 93 L 05/22/18 06:55 Intake & Output 05/21/18 05/22/18 05/22/18 18:59 06:59 18:59 Intake Total 100 Output Total 150 152 Balance -150 -52 Weight 75 kg 75 kg Intake: Oral 100 Output: Urine 150 150 Stool 2 Other: Voiding Method Indwelling Catheter Indwelling Catheter # Voids 0 ABP, PAP, CO, CI - Last Documented Arterial Blood Pressure 112/37 - Labs CBC & Chem 7: 05/21/18 08:31 05/21/18 08:31 Labs: Abnormal Lab Results - Last 24 Hours (Table) 05/21/18 05/21/18 05/22/18 Range/Units 16:49 19:51 07:12 POC Glucose (mg/dL) 129 H 208 H 142 H (75-99) mg/dL
[2018-05-22 12:08] LABS: Glucose,Whole Blood 169 mg/dL (75-99)
--- NOTE | 2018-05-22 13:32 | P.PN ---
Subjective Patient is seen in follow-up for acute kidney injury and hyponatremia. Sodium level 131 yesterday. Patient has history of bladder cancer and is status post TUR-BT with exploratory laparotomy on May 09. She also had a myocardial infarction and had a stent placed to the RCA on May 06. She is nonoliguric. She has a suprapubic catheter in place. Currently resting in bed. Denies chest pain or shortness of breath. Acute kidney injury has resolved. Currently sitting up in chair. Oral intake is improving. Vital signs are stable. General: The patient appeared well nourished and normally developed. HEENT: Head exam is unremarkable. Neck is without jugular venous distension. LUNGS: Breath sounds decreased. HEART: Rate and Rhythm are regular. First and second heart sounds normal. No murmurs, rubs or gallops. ABDOMEN: Abdominal exam reveals normal bowel sounds. Non-tender and non- distended. No evidence of peritonitis. EXTREMITITES: Trace edema. Objective - Vital Signs Vital signs: Vital Signs Temp 97.9 F 05/22/18 06:55 Pulse 77 05/22/18 06:55 Resp 12 05/22/18 08:00 BP 157/77 05/22/18 06:55 Pulse Ox 93 L 05/22/18 06:55 Intake & Output 05/21/18 05/22/18 05/22/18 18:59 06:59 18:59 Intake Total 100 Output Total 150 152 Balance -150 -52 Weight 75 kg 75 kg Intake: Oral 100 Output: Urine 150 150 Stool 2 Other: Voiding Method Indwelling Catheter Indwelling Catheter # Voids 0 ABP, PAP, CO, CI - Last Documented Arterial Blood Pressure 112/37 - Labs CBC & Chem 7: 05/21/18 08:31 05/21/18 08:31 Labs: Abnormal Lab Results - Last 24 Hours (Table) 05/21/18 05/21/18 05/22/18 Range/Units 16:49 19:51 07:12 POC Glucose (mg/dL) 129 H 208 H 142 H (75-99) mg/dL 05/22/18 Range/Units 12:07 POC Glucose (mg/dL) 169 H (75-99) mg/dL Assessment and Plan Plan: Assessment: 1. Hyponatremia secondary to large volume bladder irrigation as well as Hyzaar. Sodium level up to 131 yesterday. 2. STEMI status post cardiac catheterization with a stent to the RCA on May 14. 3. Bladder cancer status post TUR-BT with exploratory laparotomy and closure of bladder rupture on May 09. 4. Metabolic acidosis secondary to acute kidney injury and IV fluids. Better. 5. Diabetes mellitus. 6. Acute kidney injury secondary to ATN secondary to hemodynamic instability and contrast-induced nephropathy. resolved. 7. Acute anemia status post blood transfusion this admission. Better. Severe iron deficiency noted. Status post IV iron. Plan: Encouraged oral intake. 1500 mL fluid restriction. Maintain Lasix 20 mg once daily. Anticipate discharge soon. She will need to follow-up as an outpatient in the next 1-2 weeks.
[2018-05-22 15:47] VITALS: BP 111/57; PULSE 70; RESP 22; TEMP 97.6
== END 2018-05-22 17:36 | DRG 246 ==
LOC: EC 00:47 → SUPCPDRO 00:47 → 2SICU 00:59 → 3SCARD 05-07 14:20 → 2SICU 05-09 17:54 → 3SCARD 05-14 13:08 → 4SSUR 05-17 21:00
PROVIDERS: ADMIT Family Medicine; ATTEND Family Medicine
PROC: 4A023N7 Measurement of Cardiac Sampling and Pressure, Left Heart, Percutaneous Approach (ICD-10-PCS; 2018-05-06)
PROC: B2111ZZ Fluoroscopy of Multiple Coronary Arteries using Low Osmolar Contrast (ICD-10-PCS; 2018-05-06)
PROC: 027034Z Dilation of Coronary Artery, One Artery with Drug-eluting Intraluminal Device, Percutaneous Approach (ICD-10-PCS; principal; 2018-05-06 00:54)
PROC: 0T9B00Z Drainage of Bladder with Drainage Device, Open Approach (ICD-10-PCS; 2018-05-09)
PROC: 0TBB8ZZ Excision of Bladder, Via Natural or Artificial Opening Endoscopic (ICD-10-PCS; 2018-05-09)
PROC: 0TCB8ZZ Extirpation of Matter from Bladder, Via Natural or Artificial Opening Endoscopic (ICD-10-PCS; 2018-05-09)
PROC: 30243N1 Transfusion of Nonautologous Red Blood Cells into Central Vein, Percutaneous Approach (ICD-10-PCS; 2018-05-09)
PROC: 0TQB0ZZ Repair Bladder, Open Approach (ICD-10-PCS; 2018-05-09 12:00)
PROC: 5A1945Z Respiratory Ventilation, 24-96 Consecutive Hours (ICD-10-PCS; 2018-05-10)
PROC: 0BH17EZ Insertion of Endotracheal Airway into Trachea, Via Natural or Artificial Opening (ICD-10-PCS; 2018-05-10)
DX: I21.19 ST elevation (STEMI) myocardial infarction involving other coronary artery of inferior wall (principal); I50.23 Acute on chronic systolic (congestive) heart failure; J96.01 Acute respiratory failure with hypoxia; N17.0 Acute kidney failure with tubular necrosis; R57.1 Hypovolemic shock; D62 Acute posthemorrhagic anemia; E22.2 Syndrome of inappropriate secretion of antidiuretic hormone; E87.2 Acidosis; I13.0 Hypertensive heart and chronic kidney disease with heart failure and stage 1 through stage 4 chronic kidney disease, or unspecified chronic kidney disease; J98.11 Atelectasis; S37.23XA Laceration of bladder, initial encounter; K56.7 Ileus, unspecified; C67.9 Malignant neoplasm of bladder, unspecified; E11.22 Type 2 diabetes mellitus with diabetic chronic kidney disease; E11.649 Type 2 diabetes mellitus with hypoglycemia without coma; E83.42 Hypomagnesemia; E66.01 Morbid (severe) obesity due to excess calories; F03.90 Unspecified dementia, unspecified severity, without behavioral disturbance, psychotic disturbance, mood disturbance, and anxiety; N14.1 Nephropathy induced by other drugs, medicaments and biological substances; N18.3 Chronic kidney disease, stage 3 (moderate); R31.0 Gross hematuria; F34.1 Dysthymic disorder; E78.5 Hyperlipidemia, unspecified; G25.81 Restless legs syndrome; G47.00 Insomnia, unspecified; I25.10 Atherosclerotic heart disease of native coronary artery without angina pectoris; I25.2 Old myocardial infarction; T50.2X5A Adverse effect of carbonic-anhydrase inhibitors, benzothiadiazides and other diuretics, initial encounter; T50.8X5A Adverse effect of diagnostic agents, initial encounter; M19.90 Unspecified osteoarthritis, unspecified site; N39.3 Stress incontinence (female) (male); R45.1 Restlessness and agitation; R33.9 Retention of urine, unspecified; Z68.29 Body mass index [BMI] 29.0-29.9, adult; Z79.4 Long term (current) use of insulin; Z79.82 Long term (current) use of aspirin; Z79.899 Other long term (current) drug therapy; Z87.891 Personal history of nicotine dependence; Z88.0 Allergy status to penicillin; Z90.49 Acquired absence of other specified parts of digestive tract; Z80.0 Family history of malignant neoplasm of digestive organs; Z80.1 Family history of malignant neoplasm of trachea, bronchus and lung; Z83.3 Family history of diabetes mellitus; Z80.42 Family history of malignant neoplasm of prostate
CPT/HCPCS: 36415; 70450; 71045; 74018; 80048; 80053; 82550; 82553; 82728; 82805; 83036; 83540; 83550; 83735; 83930; 83935; 84100; 84132; 84133; 84295; 84300; 84443; 84484; 85025; 85027; 85610; 85730; 86850; 86900; 86901; 86920; 87070; 87205; 87324; 88307; 93005; 93306; 93458; 94002; 94003; 94760; 96374; 99285; C1874

== ENCOUNTER 2018-06-02 11:09 | Emergency (ER) | payer MEDICARE, BC ==
[2018-06-02 11:19] VITALS: TEMP 98.2
--- NOTE | 2018-06-02 11:46 | ED ---
General Adult HPI - General Chief complaint: Recheck/Abnormal Lab/Rx Stated complaint: URINE PROBLEM, SENT BY DR SANTILLAN Time Seen by Provider: 06/02/18 11:10 Source: patient, RN notes reviewed Mode of arrival: wheelchair Limitations: no limitations - History of Present Illness Initial comments: This is a 78-year-old female with a past HISTORY significant for an NH recently. Patient also has had bladder cancer history. Patient also has been having quite a bit of hematuria recently and Dr. Joseph has had a cauterize some areas in the bladder recently. Her into the son she also had a perforated bladder and then recent past. Patient's hemoglobin is also continued to drop and she was post get a repeat hemoglobin on Saturday however it did not occur. Patient is continue to feel more weak and lightheaded and does a lot of sleeping so they decided to send the patient into the emergency department to be evaluated. Patient also has had a slight cough recently. Patient is complaining about chills but there has been no known fever. Patient denies any chest pain palpitations or difficulty breathing. Patient denies any abdominal pain patient denies any nausea vomiting diarrhea. Patient continues to have hematuria but is creative intern than it has been. - Related Data Home Medications Medication Instructions Recorded Confirmed Atenolol [Tenormin] 25 mg PO DAILY 09/17/14 06/02/18 Famotidine [Pepcid] 20 mg PO BID 05/06/18 06/02/18 Memantine [Namenda] 10 mg PO BID 05/06/18 06/02/18 Pramipexole [Mirapex] 0.125 mg PO DAILY PRN 05/06/18 06/02/18 Sertraline [Zoloft] 50 mg PO DAILY 05/06/18 06/02/18 HYDROcodone/APAP 5-325MG [[place] 1 tab PO Q8HR PRN 06/02/18 06/02/18 5-325] Insulin Aspart [NovoLOG See Protocol SQ ACHS 06/02/18 06/02/18 (formulary)] Previous Rx's Medication Instructions Recorded Aspirin 81 mg PO DAILY chew 05/16/18 Atorvastatin [Lipitor] 80 mg PO HS tab 05/16/18 Clopidogrel [Plavix] 75 mg PO DAILY tab 05/16/18 Melatonin 6 mg PO HS tablet 05/16/18 Nitroglycerin Sl Tabs [Nitrostat] 0.4 mg SUBLINGUAL Q5M PRN tab 05/16/18 Sodium Chloride Tab 1 gm PO DAILY #30 tablet 05/16/18 Furosemide [Lasix] 20 mg PO DAILY tab 05/22/18 Cephalexin [Keflex] 500 mg PO Q6HR #28 cap 06/02/18 Allergies Allergy/AdvReac Type Severity Reaction Status Date / Time Penicillins AdvReac Mild Unknown Verified 06/02/18 12:02 Review of Systems ROS Statement: Those systems with pertinent positive or pertinent negative responses have been documented in the HPI. ROS Other: All systems not noted in ROS Statement are negative. Past Medical History Past Medical History: Coronary Artery Disease (CAD), Cancer, Chest Pain / Angina , Dementia, Diabetes Mellitus, Hyperlipidemia, Hypertension, Memory Impairment, Myocardial Infarction ([place]), Osteoarthritis (OA) Additional Past Medical History / Comment(s): Restless leg syndrome, Bladder Cancer with Gross hematuria Last Myocardial Infarction Date:: 05/06/18 History of Any Multi-Drug Resistant Organisms: None Reported Past Surgical History: Cholecystectomy, Heart Catheterization With Stent Additional Past Surgical History / Comment(s): Arthroscopic knee surgery left, Left ankle surgery 09/17/2014, Past Anesthesia/Blood Transfusion Reactions: No Reported Reaction Date of Last Stent Placement:: 05/06/18 Past Psychological History: No Psychological Hx Reported Smoking Status: Former smoker - Past Family History Father Family Medical History: Dementia Mother Family Medical History: Cancer (Pancreas) Sister(s) Family Medical History: Cancer (Lung cancer) Brother(s) Family Medical History: No Reported History Son(s) Family Medical History: No Reported History (Healthy) General Exam - General Exam Comments Initial Comments: GENERAL: Patient is well-developed and well-nourished. Patient is nontoxic and well- hydrated and is in no acute distress. ENT: Neck is soft and supple. No significant lymphadenopathy is noted. Oropharynx is clear. Moist mucous membranes. Neck has full range of motion without eliciting any pain. EYES: The sclera were anicteric and conjunctiva were pink and moist. Extraocular movements were intact and pupils were equal round and reactive to light. Eyelids were unremarkable. PULMONARY: Unlabored respirations. Good breath sounds bilaterally. No audible rales rhonchi or wheezing was noted. CARDIOVASCULAR: There is a regular rate and rhythm without any murmurs gallops or rubs. ABDOMEN: Soft and nontender with normal bowel sounds. Suprapubic wound site has very slight amount of pus. No erythema in the area. SKIN: Skin is pale NEUROLOGIC: Patient is alert and oriented x3. Cranial nerves II through XII are grossly intact. Motor and sensory are also intact. Normal speech, volume and content. Symmetrical smile. MUSCULOSKELETAL: Normal extremities with adequate strength and full range of motion. No lower extremity swelling or edema. No calf tenderness. LYMPHATICS: No significant lymphadenopathy is noted PSYCHIATRIC: Normal psychiatric evaluation. Limitations: no limitations Course Vital Signs 06/02/18 06/02/18 06/02/18 11:15 12:30 13:00 Temperature 98.2 F Pulse Rate 84 70 70 Respiratory 16 18 20 Rate Blood Pressure 103/67 121/49 129/58 O2 Sat by Pulse 97 94 L 96 Oximetry 06/02/18 14:00 Temperature Pulse Rate 70 Respiratory 17 Rate Blood Pressure 116/51 O2 Sat by Pulse 99 Oximetry Medical Decision Making - Medical Decision Making EKG shows normal sinus rhythm at 79 bpm OK interval 114 QRS is 70 QT interval 362 QTC is 4:15 per patient's EKG shows no ST segment elevation or depression however there is T-wave inversion in leads 2 and aVF as well as Q waves in those leads. I compared this to an old EKG and there are no acute changes. - Lab Data Result diagrams: 06/02/18 11:50 06/02/18 11:50 Lab Results 06/02/18 06/02/18 06/02/18 Range/Units 11:50 11:50 11:50 WBC 8.6 (3.8-10.6) k/uL RBC 3.23 L (3.80-5.40) m/uL Hgb 9.5 L (11.4-16.0) gm/dL Hct 29.1 L (34.0-46.0) % MCV 90.1 (80.0-100.0) fL MCH 29.4 (25.0-35.0) pg MCHC 32.6 (31.0-37.0) g/dL RDW 14.9 (11.5-15.5) % Plt Count 387 (150-450) k/uL Neutrophils % 76 % Lymphocytes % 13 % Monocytes % 6 % Eosinophils % 3 % Basophils % 1 % Neutrophils # 6.5 (1.3-7.7) k/uL Lymphocytes # 1.1 (1.0-4.8) k/uL Monocytes # 0.5 (0-1.0) k/uL Eosinophils # 0.3 (0-0.7) k/uL Basophils # 0.1 (0-0.2) k/uL PT (9.0-12.0) sec INR (<1.2) APTT (22.0-30.0) sec Sodium 130 L (137-145) mmol/L Potassium 4.2 (3.5-5.1) mmol/L Chloride 92 L (98-107) mmol/L Carbon Dioxide 25 (22-30) mmol/L Anion Gap 13 mmol/L BUN 25 H (7-17) mg/dL Creatinine 1.21 H (0.52-1.04) mg/dL Est GFR (CKD-EPI)AfAm 49 (>60 ml/min/1.73 sqM) Est GFR (CKD-EPI)NonAf 43 (>60 ml/min/1.73 sqM) Glucose 139 H (74-99) mg/dL Plasma Lactic Acid Al (0.7-2.0) mmol/L Calcium 9.1 (8.4-10.2) mg/dL Total Bilirubin 0.6 (0.2-1.3) mg/dL AST 29 (14-36) U/L ALT 44 (9-52) U/L Alkaline Phosphatase 78 (38-126) U/L Troponin I (0.000-0.034) ng/mL Total Protein 6.4 (6.3-8.2) g/dL Albumin 3.5 (3.5-5.0) g/dL Urine Color Urine Appearance (Clear) Urine RBC (0-5) /hpf Urine WBC (0-5) /hpf Stool Occult Blood (Negative) Blood Type AB Positive Blood Type Recheck No Antibody Screen NEGATIVE Spec Expiration Date 06/05/2018 - 234906/02/18 06/02/18 06/02/18 Range/Units 11:50 11:50 11:50 WBC (3.8-10.6) k/uL RBC (3.80-5.40) m/uL Hgb (11.4-16.0) gm/dL Hct (34.0-46.0) % MCV (80.0-100.0) fL MCH (25.0-35.0) pg MCHC (31.0-37.0) g/dL RDW (11.5-15.5) % Plt Count (150-450) k/uL Neutrophils % % Lymphocytes % % Monocytes % % Eosinophils % % Basophils % % Neutrophils # (1.3-7.7) k/uL Lymphocytes # (1.0-4.8) k/uL Monocytes # (0-1.0) k/uL Eosinophils # (0-0.7) k/uL Basophils # (0-0.2) k/uL PT 10.9 (9.0-12.0) sec INR 1.0 (<1.2) APTT 21.2 L (22.0-30.0) sec Sodium (137-145) mmol/L Potassium (3.5-5.1) mmol/L Chloride (98-107) mmol/L Carbon Dioxide (22-30) mmol/L Anion Gap mmol/L BUN (7-17) mg/dL Creatinine (0.52-1.04) mg/dL Est GFR (CKD-EPI)AfAm (>60 ml/min/1.73 sqM) Est GFR (CKD-EPI)NonAf (>60 ml/min/1.73 sqM) Glucose (74-99) mg/dL Plasma Lactic Acid Al 1.7 (0.7-2.0) mmol/L Calcium (8.4-10.2) mg/dL Total Bilirubin (0.2-1.3) mg/dL AST (14-36) U/L ALT (9-52) U/L Alkaline Phosphatase (38-126) U/L Troponin I 0.013 (0.000-0.034) ng/mL Total Protein (6.3-8.2) g/dL Albumin (3.5-5.0) g/dL Urine Color Urine Appearance (Clear) Urine RBC (0-5) /hpf Urine WBC (0-5) /hpf Stool Occult Blood (Negative) Blood Type Blood Type Recheck Antibody Screen Spec Expiration Date 06/02/18 06/02/18 Range/Units 12:21 12:21 WBC (3.8-10.6) k/uL RBC (3.80-5.40) m/uL Hgb (11.4-16.0) gm/dL Hct (34.0-46.0) % MCV (80.0-100.0) fL MCH (25.0-35.0) pg MCHC (31.0-37.0) g/dL RDW (11.5-15.5) % Plt Count (150-450) k/uL Neutrophils % % Lymphocytes % % Monocytes % % Eosinophils % % Basophils % % Neutrophils # (1.3-7.7) k/uL Lymphocytes # (1.0-4.8) k/uL Monocytes # (0-1.0) k/uL Eosinophils # (0-0.7) k/uL Basophils # (0-0.2) k/uL PT (9.0-12.0) sec INR (<1.2) APTT (22.0-30.0) sec Sodium (137-145) mmol/L Potassium (3.5-5.1) mmol/L Chloride (98-107) mmol/L Carbon Dioxide (22-30) mmol/L Anion Gap mmol/L BUN (7-17) mg/dL Creatinine (0.52-1.04) mg/dL Est GFR (CKD-EPI)AfAm (>60 ml/min/1.73 sqM) Est GFR (CKD-EPI)NonAf (>60 ml/min/1.73 sqM) Glucose (74-99) mg/dL Plasma Lactic Acid Al (0.7-2.0) mmol/L Calcium (8.4-10.2) mg/dL Total Bilirubin (0.2-1.3) mg/dL AST (14-36) U/L ALT (9-52) U/L Alkaline Phosphatase (38-126) U/L Troponin I (0.000-0.034) ng/mL Total Protein (6.3-8.2) g/dL Albumin (3.5-5.0) g/dL Urine Color Red Urine Appearance Bloody H (Clear) Urine RBC >182 H (0-5) /hpf Urine WBC 90 H (0-5) /hpf Stool Occult Blood Negative (Negative) Blood Type Blood Type Recheck Antibody Screen Spec Expiration Date Disposition Clinical Impression: Chronic anemia, Fatigue, Infected wound Disposition: HOME SELF-CARE Prescriptions: Cephalexin [Keflex] 500 mg PO Q6HR #28 cap Is patient prescribed a controlled substance at d/c from ED?: No Referrals: Praneeth Lewis MD [Primary Care Provider] - 1-2 days Narendra Santillan MD [STAFF PHYSICIAN] - 1-2 days Time of Disposition: 14:52
[2018-06-02 12:24] LABS: Basophils # (A) 0.1 k/uL (0-0.2); Basophils % (A) 1 %; Eosinophils # (A) 0.3 k/uL (0-0.7); Eosinophils % (A) 3 %; HCT 29.1 % (34.0-46.0); HGB 9.5 gm/dL (11.4-16.0); Lymphocytes # (A) 1.1 k/uL (1.0-4.8); Lymphocytes % (A) 13 %; MCH 29.4 pg (25.0-35.0); MCHC 32.6 g/dL (31.0-37.0); MCV 90.1 fL (80.0-100.0); Mean Platelet Volume 6.5; Monocytes # (A) 0.5 k/uL (0-1.0); Monocytes % (A) 6 %; Neutrophils # (A) 6.5 k/uL (1.3-7.7); Neutrophils % (A) 76 %; Platelet Count 387 k/uL (150-450); RBC 3.23 m/uL (3.80-5.40); RDW 14.9 % (11.5-15.5); WBC 8.6 k/uL (3.8-10.6)
[2018-06-02 12:28] LABS: Albumin 3.5 g/dL (3.5-5.0); Calcium 9.1 mg/dL (8.4-10.2); Potassium 4.2 mmol/L (3.5-5.1); Total Bilirubin 0.6 mg/dL (0.2-1.3); Total Protein 6.4 g/dL (6.3-8.2)
[2018-06-02 12:37] LABS: Prothrombin Time 10.9 sec (9.0-12.0)
[2018-06-02 12:38] VITALS: PULSE 70
[2018-06-02 12:39] LABS: Partial Thromboplastin Time 21.2 sec (22.0-30.0)
[2018-06-02 12:46] LABS: Color,Urine Red; RBC,Urine >182 /hpf (0-5); WBC,Urine 90 /hpf (0-5)
[2018-06-02 12:47] LABS: Appearance,Urine Bloody (Clear)
--- NOTE | 2018-06-02 13:55 | XR ---
EXAMINATION TYPE: XR chest 2V DATE OF EXAM: 06/02/2018 COMPARISON: Chest x-ray May 15, 2018 HISTORY: Low hemoglobin and hematuria, history of bladder cancer, possible infection. TECHNIQUE: Frontal and lateral views of the chest are obtained. FINDINGS: There is chronic parenchymal change without suspicious focal air space opacity, pleural ef fusion, or pneumothorax seen. The cardiac silhouette size remains enlarged without a cirrhotic aorta . The osseous structures remain demineralized. Cholecystectomy clips are appreciated on lateral vie w. IMPRESSION: Chronic changes and cardiomegaly without suspicious acute pulmonary process. No signifi cant change from prior.
[2018-06-02 14:19] VITALS: BP 116/51; RESP 17
== END 2018-06-02 15:22 | disposition home or self-care (01) ==
LOC: EC 11:09
DX: D64.9 Anemia, unspecified (principal); R53.83 Other fatigue; L08.9 Local infection of the skin and subcutaneous tissue, unspecified; I25.119 Atherosclerotic heart disease of native coronary artery with unspecified angina pectoris; F03.90 Unspecified dementia, unspecified severity, without behavioral disturbance, psychotic disturbance, mood disturbance, and anxiety; E11.9 Type 2 diabetes mellitus without complications; I10 Essential (primary) hypertension; I25.2 Old myocardial infarction; Z79.4 Long term (current) use of insulin; Z79.899 Other long term (current) drug therapy; Z88.0 Allergy status to penicillin; Z87.891 Personal history of nicotine dependence; Z85.51 Personal history of malignant neoplasm of bladder
CPT/HCPCS: 36415; 71046; 80053; 81001; 82272; 83605; 84484; 85025; 85610; 85730; 86850; 86900; 86901; 87040; 87070; 87086; 87205; 93005; 99284

== ENCOUNTER 2018-06-09 15:58 | Inpatient (IN) | payer MEDICARE, BC ==
[2018-06-09] MEDS ORDERED: ONDANSETRON 4 MG/2 ML VIAL IVP STA (16:29)
[2018-06-09] MEDS ORDERED: SODIUM CHLORIDE 0.9% 1,000 ML IV STA ×2 (16:29→17:27)
[2018-06-09] MEDS ORDERED: DIAZEPAM 5 MG/ML 2 ML INJ IVP STA (16:30)
[2018-06-09 17:27] LABS: Basophils % (A) 0 %; Eosinophils # (A) 0.2 k/uL (0-0.7); Eosinophils % (A) 2 %; HCT 24.6 % (34.0-46.0); HGB 8.1 gm/dL (11.4-16.0); Lymphocytes # (A) 1.6 k/uL (1.0-4.8); Lymphocytes % (A) 10 %; MCH 30.1 pg (25.0-35.0); MCHC 32.9 g/dL (31.0-37.0); MCV 91.3 fL (80.0-100.0); Mean Platelet Volume 6.9; Monocytes # (A) 0.6 k/uL (0-1.0); Monocytes % (A) 4 %; Neutrophils # (A) 12.6 k/uL (1.3-7.7); Neutrophils % (A) 83 %; Platelet Count 365 k/uL (150-450); RDW 15.7 % (11.5-15.5); WBC 15.2 k/uL (3.8-10.6)
[2018-06-09] MEDS ORDERED: ACETAMINOPHEN IV (For NPO) 1,000 MG in EMPTY BAG 1 BAG IVPB STA (17:27)
[2018-06-09 17:34] LABS: Albumin 3.9 g/dL (3.5-5.0); Calcium 9.4 mg/dL (8.4-10.2); Magnesium 1.5 mg/dL (1.6-2.3); Phosphorus 4.4 mg/dL (2.5-4.5); Potassium 4.5 mmol/L (3.5-5.1); Total Bilirubin 0.8 mg/dL (0.2-1.3)
[2018-06-09 17:41] LABS: Prothrombin Time 10.4 sec (9.0-12.0)
[2018-06-09 17:44] LABS: Creatine Kinase MB 1.8 ng/mL (0.0-2.4); Troponin I 0.02 ng/mL (0.000-0.034)
--- NOTE | 2018-06-09 18:33 | XR ---
EXAMINATION TYPE: XR chest 2V DATE OF EXAM: 06/09/2018 COMPARISON: 06/02/2018 HISTORY: Shortness of breath TECHNIQUE: Frontal and lateral views of the chest are obtained. FINDINGS: Scattered senescent parenchymal changes noted. No evidence for infiltrate. No evidence for atelectasis. Heart size is stable. Mediastinal structures are stable and grossly unremarkable. No evidence for hilar prominence. Degenerative changes dorsal spine. IMPRESSION: 1. No evidence for acute pulmonary disease.
--- NOTE | 2018-06-09 18:38 | CT ---
EXAMINATION TYPE: CT brain wo con DATE OF EXAM: 06/09/2018 COMPARISON: 05/21/2018 HISTORY: weakness CT DLP: 1326.[address] of the brain was performed. The ventricles, basal cisterns and sulci overlying the cerebral convexities demonstrate mild enlargem ent. There is no evidence for intracranial hemorrhage or sulcal effacement. There is decreased attenuation about the periventricular white matter and deep white matter of both c erebral hemispheres, compatible with chronic small vessel ischemia. Differential diagnosis does inclu de demyelination. No mass effects are seen.No midline shift. Osseous calvarium is intact. If symptoms persist consider MRI. IMPRESSION: 1. Age related atrophic and chronic small vessel ischemic change without acute intracranial process s een at this time.
--- NOTE | 2018-06-09 19:22 | ED ---
Weakness HPI - General Chief complaint: Weakness Stated complaint: hypotension Time Seen by Provider: 06/09/18 16:29 Source: patient, family, EMS, RN notes reviewed, old records reviewed Mode of arrival: EMS - History of Present Illness Initial comments: This is a 78-year-old female the ER for evaluation of increasing weakness. 3-4 days of nausea vomiting and diarrhea per her son who is her primary caregiver at home. Patient himself denies complaints aside from weakness, family states that she has had 2 episodes her she felt warm, she has history of bladder cancer with reduction treatment for urinary tract infection. Patient states she felt near syncopal just prior to arrival. MD Complaint: generalized weakness, lack of energy -: days(s) Location: generalized Severity: severe Severity scale (1-10): 9 Consistency: constant Improves with: none Worsens with: none Context: new medication Associated Symptoms: fever/chills, loss of appetite, nausea/vomiting - Related Data Home Medications Medication Instructions Recorded Confirmed Atenolol [Tenormin] 25 mg PO DAILY 09/17/14 06/09/18 Famotidine [Pepcid] 20 mg PO BID 05/06/18 06/09/18 Memantine [Namenda] 10 mg PO BID 05/06/18 06/09/18 Pramipexole [Mirapex] 0.125 mg PO DAILY PRN 05/06/18 06/09/18 Sertraline [Zoloft] 50 mg PO DAILY 05/06/18 06/09/18 Donepezil [Aricept] 10 mg PO HS 06/09/18 06/09/18 Insulin Glargine [Lantus] 55 unit SQ DAILY 06/09/18 06/09/18 Losartan/Hydrochlorothiazide 1 tab PO DAILY 06/09/18 06/09/18 [Hyzaar 100-25 Tablet] Pravastatin Sodium [Pravachol] 40 mg PO DAILY 06/09/18 06/09/18 Tumeric (Unknown Dose) 1 tab PO DAILY 06/09/18 06/09/18 Ubidecarenone [Co Q-10] 100 mg PO DAILY 06/09/18 06/09/18 Previous Rx's Medication Instructions Recorded Clopidogrel [Plavix] 75 mg PO DAILY tab 05/16/18 Nitroglycerin Sl Tabs [Nitrostat] 0.4 mg SUBLINGUAL Q5M PRN tab 05/16/18 Allergies Allergy/AdvReac Type Severity Reaction Status Date / Time Penicillins AdvReac Mild Unknown Verified 06/09/18 19:53 Review of Systems ROS Statement: Those systems with pertinent positive or pertinent negative responses have been documented in the HPI. ROS Other: All systems not noted in ROS Statement are negative. Past Medical History Past Medical History: Coronary Artery Disease (CAD), Cancer, Chest Pain / Angina , Dementia, Diabetes Mellitus, Hyperlipidemia, Hypertension, Memory Impairment, Myocardial Infarction ([place]), Osteoarthritis (OA) Additional Past Medical History / Comment(s): Restless leg syndrome, Bladder Cancer with Gross hematuria dementia Last Myocardial Infarction Date:: 05/06/18 History of Any Multi-Drug Resistant Organisms: None Reported Past Surgical History: Cholecystectomy, Heart Catheterization With Stent Additional Past Surgical History / Comment(s): Arthroscopic knee surgery left, Left ankle surgery 09/17/2014, Past Anesthesia/Blood Transfusion Reactions: No Reported Reaction Date of Last Stent Placement:: 05/06/18 Past Psychological History: No Psychological Hx Reported Smoking Status: Former smoker - Past Family History Father Family Medical History: Dementia Mother Family Medical History: Cancer (Pancreas) Sister(s) Family Medical History: Cancer (Lung cancer) Brother(s) Family Medical History: No Reported History Son(s) Family Medical History: No Reported History (Healthy) General Exam General appearance: alert, in no apparent distress Head exam: Present: atraumatic, normocephalic, normal inspection Eye exam: Present: normal appearance, PERRL, EOMI. Absent: scleral icterus, conjunctival injection, periorbital swelling ENT exam: Present: normal exam, mucous membranes moist Neck exam: Present: normal inspection. Absent: tenderness, meningismus, lymphadenopathy Respiratory exam: Present: normal lung sounds bilaterally. Absent: respiratory distress, wheezes, rales, rhonchi, stridor Cardiovascular Exam: Present: regular rate, normal rhythm, normal heart sounds. Absent: systolic murmur, diastolic murmur, rubs, gallop, clicks GI/Abdominal exam: Present: soft, normal bowel sounds. Absent: distended, tenderness, guarding, rebound, rigid Extremities exam: Present: normal inspection, full ROM, normal capillary refill. Absent: tenderness, pedal edema, joint swelling, calf tenderness Back exam: Present: normal inspection Neurological exam: Present: alert, oriented X3, CN II-XII intact Psychiatric exam: Present: normal affect, normal mood Skin exam: Present: warm, dry, intact, normal color. Absent: rash Course Vital Signs 06/09/18 06/09/18 06/09/18 16:04 17:08 19:09 Temperature 99.0 F 99.1 F Pulse Rate 78 74 77 Respiratory 18 16 18 Rate Blood Pressure 100/80 106/47 109/99 O2 Sat by Pulse 100 94 L 94 L Oximetry 06/09/18 06/09/18 06/09/18 20:00 20:12 21:23 Temperature 98.4 F Pulse Rate 80 76 73 Respiratory 16 20 Rate Blood Pressure 98/74 100/73 O2 Sat by Pulse 94 L 97 Oximetry 06/09/18 22:17 Temperature 98.5 F Pulse Rate 78 Respiratory 20 Rate Blood Pressure 100/70 O2 Sat by Pulse 98 Oximetry - Reevaluation(s) Reevaluation #1: medical record is reviewed and prior labwork evlauated patient has mild improvement w IVF still very weak. Medical Decision Making - Medical Decision Making 4 female the ER for eversion presents for nausea vomiting and diarrhea, patient recent diagnosis of UTI and antibiotics. Patient has no significant improvement here and IV fluid, will admit for continued resuscitation. We'll hold antibiotics for urine cultures. - Lab Data Result diagrams: 06/09/18 16:55 06/09/18 16:55 Lab Results 06/09/18 06/09/18 06/09/18 Range/Units 16:55 16:55 16:55 WBC 15.2 H (3.8-10.6) k/uL RBC 2.70 L (3.80-5.40) m/uL Hgb 8.1 L (11.4-16.0) gm/dL Hct 24.6 L (34.0-46.0) % MCV 91.3 (80.0-100.0) fL MCH 30.1 (25.0-35.0) pg MCHC 32.9 (31.0-37.0) g/dL RDW 15.7 H (11.5-15.5) % Plt Count 365 (150-450) k/uL Neutrophils % 83 % Lymphocytes % 10 % Monocytes % 4 % Eosinophils % 2 % Basophils % 0 % Neutrophils # 12.6 H (1.3-7.7) k/uL Lymphocytes # 1.6 (1.0-4.8) k/uL Monocytes # 0.6 (0-1.0) k/uL Eosinophils # 0.2 (0-0.7) k/uL Basophils # 0.0 (0-0.2) k/uL PT (9.0-12.0) sec INR (<1.2) APTT (22.0-30.0) sec Sodium 133 L (137-145) mmol/L Potassium 4.5 (3.5-5.1) mmol/L Chloride 95 L (98-107) mmol/L Carbon Dioxide 23 (22-30) mmol/L Anion Gap 15 mmol/L BUN 43 H (7-17) mg/dL Creatinine 1.58 H (0.52-1.04) mg/dL Est GFR (CKD-EPI)AfAm 36 (>60 ml/min/1.73 sqM) Est GFR (CKD-EPI)NonAf 31 (>60 ml/min/1.73 sqM) Glucose 135 H (74-99) mg/dL Lactic Ac Sepsis Rflx Plasma Lactic Acid Al (0.7-2.0) mmol/L Calcium 9.4 (8.4-10.2) mg/dL Phosphorus 4.4 (2.5-4.5) mg/dL Magnesium 1.5 L (1.6-2.3) mg/dL Total Bilirubin 0.8 (0.2-1.3) mg/dL AST 38 H (14-36) U/L ALT 31 (9-52) U/L Alkaline Phosphatase 70 (38-126) U/L Total Creatine Kinase 35 (30-135) U/L CK-MB (CK-2) 1.8 (0.0-2.4) ng/mL CK-MB (CK-2) Rel Index 5.1 Troponin I 0.020 (0.000-0.034) ng/mL Total Protein 7.0 (6.3-8.2) g/dL Albumin 3.9 (3.5-5.0) g/dL Urine Color Urine Appearance (Clear) Urine pH (5.0-8.0) Ur Specific Redig (1.001-1.035) Urine Protein (Negative) Urine Glucose (UA) (Negative) Urine Ketones (Negative) Urine Blood (Negative) Urine Nitrite (Negative) Urine Bilirubin (Negative) Urine Urobilinogen (<2.0) mg/dL Ur Leukocyte Esterase (Negative) Urine RBC (0-5) /hpf Urine WBC (0-5) /hpf Influenza Type A RNA (Not Detectd) Influenza Type B (PCR) (Not Detectd) 06/09/18 06/09/18 06/09/18 Range/Units 16:55 16:55 17:46 WBC (3.8-10.6) k/uL RBC (3.80-5.40) m/uL Hgb (11.4-16.0) gm/dL Hct (34.0-46.0) % MCV (80.0-100.0) fL MCH (25.0-35.0) pg MCHC (31.0-37.0) g/dL RDW (11.5-15.5) % Plt Count (150-450) k/uL Neutrophils % % Lymphocytes % % Monocytes % % Eosinophils % % Basophils % % Neutrophils # (1.3-7.7) k/uL Lymphocytes # (1.0-4.8) k/uL Monocytes # (0-1.0) k/uL Eosinophils # (0-0.7) k/uL Basophils # (0-0.2) k/uL PT 10.4 (9.0-12.0) sec INR 1.0 (<1.2) APTT 21.0 L (22.0-30.0) sec Sodium (137-145) mmol/L Potassium (3.5-5.1) mmol/L Chloride (98-107) mmol/L Carbon Dioxide (22-30) mmol/L Anion Gap mmol/L BUN (7-17) mg/dL Creatinine (0.52-1.04) mg/dL Est GFR (CKD-EPI)AfAm (>60 ml/min/1.73 sqM) Est GFR (CKD-EPI)NonAf (>60 ml/min/1.73 sqM) Glucose (74-99) mg/dL Lactic Ac Sepsis Rflx Y Plasma Lactic Acid Al 3.8 H* (0.7-2.0) mmol/L Calcium (8.4-10.2) mg/dL Phosphorus (2.5-4.5) mg/dL Magnesium (1.6-2.3) mg/dL Total Bilirubin (0.2-1.3) mg/dL AST (14-36) U/L ALT (9-52) U/L Alkaline Phosphatase (38-126) U/L Total Creatine Kinase (30-135) U/L CK-MB (CK-2) (0.0-2.4) ng/mL CK-MB (CK-2) Rel Index Troponin I (0.000-0.034) ng/mL Total Protein (6.3-8.2) g/dL Albumin (3.5-5.0) g/dL Urine Color Urine Appearance (Clear) Urine pH (5.0-8.0) Ur Specific Redig (1.001-1.035) Urine Protein (Negative) Urine Glucose (UA) (Negative) Urine Ketones (Negative) Urine Blood (Negative) Urine Nitrite (Negative) Urine Bilirubin (Negative) Urine Urobilinogen (<2.0) mg/dL Ur Leukocyte Esterase (Negative) Urine RBC (0-5) /hpf Urine WBC (0-5) /hpf Influenza Type A RNA (Not Detectd) Influenza Type B (PCR) (Not Detectd) 06/09/18 06/09/18 Range/Units 19:06 19:10 WBC (3.8-10.6) k/uL RBC (3.80-5.40) m/uL Hgb (11.4-16.0) gm/dL Hct (34.0-46.0) % MCV (80.0-100.0) fL MCH (25.0-35.0) pg MCHC (31.0-37.0) g/dL RDW (11.5-15.5) % Plt Count (150-450) k/uL Neutrophils % % Lymphocytes % % Monocytes % % Eosinophils % % Basophils % % Neutrophils # (1.3-7.7) k/uL Lymphocytes # (1.0-4.8) k/uL Monocytes # (0-1.0) k/uL Eosinophils # (0-0.7) k/uL Basophils # (0-0.2) k/uL PT (9.0-12.0) sec INR (<1.2) APTT (22.0-30.0) sec Sodium (137-145) mmol/L Potassium (3.5-5.1) mmol/L Chloride (98-107) mmol/L Carbon Dioxide (22-30) mmol/L Anion Gap mmol/L BUN (7-17) mg/dL Creatinine (0.52-1.04) mg/dL Est GFR (CKD-EPI)AfAm (>60 ml/min/1.73 sqM) Est GFR (CKD-EPI)NonAf (>60 ml/min/1.73 sqM) Glucose (74-99) mg/dL Lactic Ac Sepsis Rflx Plasma Lactic Acid Al (0.7-2.0) mmol/L Calcium (8.4-10.2) mg/dL Phosphorus (2.5-4.5) mg/dL Magnesium (1.6-2.3) mg/dL Total Bilirubin (0.2-1.3) mg/dL AST (14-36) U/L ALT (9-52) U/L Alkaline Phosphatase (38-126) U/L Total Creatine Kinase (30-135) U/L CK-MB (CK-2) (0.0-2.4) ng/mL CK-MB (CK-2) Rel Index Troponin I (0.000-0.034) ng/mL Total Protein (6.3-8.2) g/dL Albumin (3.5-5.0) g/dL Urine Color Dark Red Urine Appearance Turbid H (Clear) Urine pH 6.0 (5.0-8.0) Ur Specific Redig 1.016 (1.001-1.035) Urine Protein 2+ H (Negative) Urine Glucose (UA) Negative (Negative) Urine Ketones Trace H (Negative) Urine Blood Large H (Negative) Urine Nitrite Negative (Negative) Urine Bilirubin Negative (Negative) Urine Urobilinogen <2.0 (<2.0) mg/dL Ur Leukocyte Esterase Moderate H (Negative) Urine RBC >182 H (0-5) /hpf Urine WBC 154 H (0-5) /hpf Influenza Type A RNA Not Detected (Not Detectd) Influenza Type B (PCR) Not Detected (Not Detectd) - Radiology Data Radiology results: report reviewed (CT brain negative for acute disease chest x- rays negative for acute disease), image reviewed Disposition Clinical Impression: Gross hematuria, Fatigue, Chronic anemia, Dehydration, Weakness Disposition: ADMITTED IP TO THIS HOSP Condition: Fair Is patient prescribed a controlled substance at d/c from ED?: No
[2018-06-09 19:23] LABS: Appearance,Urine Turbid (Clear); Bilirubin,Urine Negative (Negative); Blood,Urine Large (Negative); Color,Urine Dark Red; Glucose,Urine (UA) Negative (Negative); Ketones,Urine Trace (Negative); Leukocyte Esterase,Urine Moderate (Negative); Nitrite,Urine Negative (Negative); Protein,Urine 2+ (Negative); RBC,Urine >182 /hpf (0-5); Urobilinogen,Urine <2.0 mg/dL (<2.0); WBC,Urine 154 /hpf (0-5)
[2018-06-09 19:24] LABS: Specific Gravity,Urine 1.016 (1.001-1.035)
[2018-06-09] MEDS ORDERED: ONDANSETRON 4 MG/2 ML VIAL IVP PRN (21:23)
[2018-06-09] MEDS ORDERED: DONEPEZIL 10 MG TAB PO SCH (23:00)
[2018-06-09] MEDS ORDERED: NITROGLYCERIN SL TABS 0.4 MG TAB SUBLINGUAL PRN (23:00)
[2018-06-09 23:16] LABS: Glucose,Whole Blood 92 mg/dL (75-99)
[2018-06-09] MEDS ORDERED: MAGNESIUM SULFATE-D5W PMX 1 GM in DEXTROSE/WATER 1 100ML.BAG IVPB ONE (23:30)
[2018-06-09] MEDS: MEMANTINE 10 MG TAB PO SCH (23:51)
[2018-06-09] MEDS: SODIUM CHLORIDE 0.9% 1,000 ML IV SCH (23:51)
[2018-06-10 07:18] LABS: Glucose,Whole Blood 84 mg/dL (75-99)
[2018-06-10] MEDS: INSULIN ASPART 100 UNIT/ML 1 ML 10 ML VIAL SQ SCH ×4 (07:49→20:27)
[2018-06-10] MEDS: PRAVASTATIN SODIUM 40 MG TAB PO SCH (07:50)
[2018-06-10] MEDS: CLOPIDOGREL 75 MG TAB PO SCH (07:50)
[2018-06-10] MEDS: MEMANTINE 10 MG TAB PO SCH ×2 (07:50→20:32)
[2018-06-10] MEDS: SERTRALINE 50 MG TAB PO SCH (07:50)
[2018-06-10] MEDS: ATENOLOL 25 MG TAB PO SCH (07:50)
[2018-06-10] MEDS: PANTOPRAZOLE 40 MG/10 ML VIAL IVP SCH (07:51)
[2018-06-10] MEDS: LEVOFLOXACIN 500MG-D5W PMX 500 MG in DEXTROSE/WATER 1 100ML.BAG IVPB SCH (08:34)
[2018-06-10] MEDS ORDERED: ENOXAPARIN 40 MG/0.4 ML SYRINGE SQ SCH (09:00)
[2018-06-10] MEDS ORDERED: INSULIN DETEMIR 100 UNIT/ML 10 ML VIAL SQ SCH (09:00)
[2018-06-10] MEDS: PRAMIPEXOLE 0.125 MG TAB PO PRN ×2 (10:31→21:32)
[2018-06-10] MEDS: ACETAMINOPHEN TAB 325 MG TAB PO PRN ×3 (10:31→21:35)
[2018-06-10 10:36] LABS: Basophils % (A) 0 %; Eosinophils # (A) 0.2 k/uL (0-0.7); Eosinophils % (A) 3 %; HCT 20.4 % (34.0-46.0); Hypochromasia Slight; Lymphocytes # (A) 1.3 k/uL (1.0-4.8); Lymphocytes % (A) 14 %; MCH 29.7 pg (25.0-35.0); MCHC 31.9 g/dL (31.0-37.0); MCV 93.2 fL (80.0-100.0); Mean Platelet Volume 6.7; Monocytes # (A) 0.5 k/uL (0-1.0); Monocytes % (A) 5 %; Neutrophils % (A) 77 %; Platelet Count 306 k/uL (150-450); RBC 2.19 m/uL (3.80-5.40); RDW 15.7 % (11.5-15.5); WBC 9.1 k/uL (3.8-10.6)
[2018-06-10 10:42] LABS: HGB 6.5 gm/dL (11.4-16.0)
[2018-06-10 10:56] LABS: Albumin 2.9 g/dL (3.5-5.0); Calcium 8.5 mg/dL (8.4-10.2); Potassium 3.6 mmol/L (3.5-5.1); Total Bilirubin 0.4 mg/dL (0.2-1.3); Total Protein 5.5 g/dL (6.3-8.2)
[2018-06-10] MEDS: SODIUM CHLORIDE 0.9% 1,000 ML IV SCH (11:25)
[2018-06-10 11:47] LABS: Glucose,Whole Blood 93 mg/dL (75-99)
--- NOTE | 2018-06-10 15:04 | P.HPIM ---
History of Present Illness H&P Date: 06/10/18 This is a 78-year-old pleasant female patient of Dr. Joshua Roper and Dr. Martinez underlying history of dementia, diabetes mellitus type 2, hypertension, hyperlipidemia, who is currently a very poor historian. He was last admitted on 05/07 for a prolonged hospital course and was treated for acute inferior wall STEMI involving the RCA requiring drug-eluting stent, patient also underwent cystoscopy for hematuria ending up having exploratory laparotomy with closure of bladder laceration post cystoscopy with history of bladder cancer which is newly diagnosed and eventually need radiation, hypertensive vascular disease, dysthymia, neurocognitive deficits with memory loss secondary to dementia comes in with gross hematuria and nausea and vomiting with increased weakness for the past 3-4 days. On evaluation patient denies having nausea or vomiting but does complain of stomach upset. She is very drowsy and falls back to sleep. No known evaluation of the blood work done in the ER , patient had a hemoglobin of 8.1 and leukocytosis 15.2, creatinine 1.58, BUN [address] head was done which was negative for acute changes chest x-ray negative for any acute changes. Urinalysis suggestive of more than 182 RBCs and WBCs 154. Vital signs assessed in the ER temp 99, blood pressure 100/80, pulse is 78. She does have a catheter patient was admitted for acute UTI, dehydration and gastroenteritis. Urology consult placed Review of Systems Constitutional: Denies chills, Denies fever, endorses lethargy, endorses poor appetite Eyes: denies decreased vision, denies diplopia, denies discharge, denies pain Ears: deny: decreased hearing Ears, nose, mouth and throat: Denies dental pain, Denies headache, Denies nasal discharge, Denies nose pain Cardiovascular: Denies chest pain, Denies decreased exercise tolerance, Denies edema, Denies high blood pressure, Denies irregular heart beat, Denies palpitations, Denies paroxysmal nocturnal dyspnea, Denies rapid heart beat, Denies shortness of breath Respiratory: Denies congestion, Denies cough, Denies cough with sputum, Denies dyspnea, Denies home oxygen, Denies wheezing Gastrointestinal: Endorses abdominal pain, endorses change in bowel habits, Denies coffee ground emesis, Denies early satiety, Denies excessive gas, Denies heartburn, Denies hematemesis, Denies hematochezia, Denies loss of appetite, endorses nausea, endorses vomiting Genitourinary: Denies dysuria, Denies flank pain, Denies kidney stones, Denies menorrhagia, Denies urgency, Denies urinary frequency endorses hematuria Musculoskeletal: Denies gait dysfunction, Denies limitation of motion, Denies morning stiffness, Denies muscle cramps Integumentary: Denies rash, Denies wounds, Denies brittle nails, Denies change in hair/nails, Denies darkening of skin Neurological: Denies balance difficulties, Denies change in speech, Denies double vision, Denies gait dysfunction, Denies loss of vision, Denies motor disturbance, Denies numbness, Denies paralysis, Denies paresthesias, Denies seizures Psychiatric: Denies anxiety, Denies depression Endocrine: Denies excessive sweating, Denies excessive thirst, Denies high blood sugars, Denies palpitations Hematologic/Lymphatic: Denies easy bruising, Denies lymphadenopathy Past Medical History Past Medical History: Coronary Artery Disease (CAD), Cancer, Chest Pain / Angina , Dementia, Diabetes Mellitus, Hyperlipidemia, Hypertension, Memory Impairment, Myocardial Infarction ([place]), Osteoarthritis (OA) Additional Past Medical History / Comment(s): Restless leg syndrome, Bladder Cancer with Gross hematuria dementia Last Myocardial Infarction Date:: 05/06/18 History of Any Multi-Drug Resistant Organisms: None Reported Past Surgical History: Cholecystectomy, Heart Catheterization With Stent Additional Past Surgical History / Comment(s): Arthroscopic knee surgery left, Left ankle surgery 09/17/2014, Past Anesthesia/Blood Transfusion Reactions: No Reported Reaction Date of Last Stent Placement:: 05/06/18 Past Psychological History: No Psychological Hx Reported Smoking Status: Former smoker - Past Family History Father Family Medical History: Dementia Additional Family Medical History / Comment(s): ?mi Mother Family Medical History: Cancer (Pancreas) Sister(s) Family Medical History: Cancer (Lung cancer) Brother(s) Family Medical History: No Reported History Son(s) Family Medical History: No Reported History (Healthy) Medications and Allergies Home Medications Medication Instructions Recorded Confirmed Type Atenolol [Tenormin] 25 mg PO DAILY 09/17/14 06/09/18 History Famotidine [Pepcid] 20 mg PO BID 05/06/18 06/09/18 History Memantine [Namenda] 10 mg PO BID 05/06/18 06/09/18 History Pramipexole [Mirapex] 0.125 mg PO DAILY PRN 05/06/18 06/09/18 History Sertraline [Zoloft] 50 mg PO DAILY 05/06/18 06/09/18 History Clopidogrel [Plavix] 75 mg PO DAILY tab 05/16/18 06/09/18 Rx Nitroglycerin Sl Tabs [Nitrostat] 0.4 mg SUBLINGUAL Q5M PRN tab 05/16/18 Rx Donepezil [Aricept] 10 mg PO HS 06/09/18 06/09/18 History Insulin Glargine [Lantus] 55 unit SQ DAILY 06/09/18 06/09/18 History Losartan/Hydrochlorothiazide 1 tab PO DAILY 06/09/18 06/09/18 History [Hyzaar 100-25 Tablet] Pravastatin Sodium [Pravachol] 40 mg PO DAILY 06/09/18 06/09/18 History Tumeric (Unknown Dose) 1 tab PO DAILY 06/09/18 06/09/18 History Ubidecarenone [Co Q-10] 100 mg PO DAILY 06/09/18 06/09/18 History Allergies Allergy/AdvReac Type Severity Reaction Status Date / Time Penicillins AdvReac Mild Unknown Verified 06/09/18 19:53 Physical Exam Vitals: Vital Signs Temp Pulse Pulse Resp BP BP Pulse Ox 06/10/18 14:18 98 F 61 16 97/47 96 06/10/18 14:08 98.3 F 74 14 105/49 97 06/10/18 06:10 97.8 F 66 20 115/64 100 06/09/18 23:00 98.2 F 66 20 121/73 100 06/09/18 22:17 98.5 F 78 20 100/70 98 06/09/18 21:23 73 20 100/73 97 06/09/18 20:12 76 06/09/18 20:00 98.4 F 80 16 98/74 94 L 06/09/18 19:09 99.1 F 77 18 109/99 94 L 06/09/18 17:08 74 16 106/47 94 L 06/09/18 16:04 99.0 F 78 18 100/80 100 Intake and Output 06/09/18 06/10/18 06/10/18 22:59 06:59 14:59 Intake Total 100 0 Balance 100 0 Intake: Oral 100 Blood Product 0 Rc Irr As1 Unit 0 [id number] Other: Voiding Method Incontinent Bedpan Incontinent # Voids 3 2 Weight 75.296 kg 78.245 kg - Constitutional General appearance: Very lethargic and unable to wake up during the exam underlying dementia - EENT Eyes: anicteric sclerae, PERRLA, normal appearance ENT: hearing grossly normal - Neck Neck: no lymphadenopathy, normal ROM, no other, no rigidity, no stridor, no thyromegaly - Respiratory Respiratory: bilateral: CTA, negative: diminished, dullness, rales, rhonchi - Cardiovascular Rhythm: regular Heart sounds: normal: S1, S2 Abnormal Heart Sounds: no systolic murmur, no diastolic murmur, no rub, no S3 Gallop, no S4 Gallop, no click, no other - Gastrointestinal General gastrointestinal: normal bowel sounds, soft tender in lower quad - Integumentary Integumentary: no rash - Neurologic Neurologic: CNII-XII intact - Musculoskeletal Musculoskeletal: gait not assessed , strength equal bilaterally but generalised weakness - Psychiatric Psychiatric: drowsy &O x's 2, appropriate affect Results CBC & Chem 7: 06/10/18 10:13 06/10/18 10:13 Labs: Abnormal Lab Results - Last 24 Hours (Table) 06/09/18 06/09/18 06/09/18 Range/Units 16:55 16:55 16:55 WBC 15.2 H (3.8-10.6) k/uL RBC 2.70 L (3.80-5.40) m/uL Hgb 8.1 L (11.4-16.0) gm/dL Hct 24.6 L (34.0-46.0) % RDW 15.7 H (11.5-15.5) % Neutrophils # 12.6 H (1.3-7.7) k/uL APTT (22.0-30.0) sec Sodium 133 L (137-145) mmol/L Chloride 95 L (98-107) mmol/L BUN 43 H (7-17) mg/dL Creatinine 1.58 H (0.52-1.04) mg/dL Glucose 135 H (74-99) mg/dL Plasma Lactic Acid Al 3.8 H* (0.7-2.0) mmol/L Magnesium 1.5 L (1.6-2.3) mg/dL AST 38 H (14-36) U/L Total Protein (6.3-8.2) g/dL Albumin (3.5-5.0) g/dL Urine Appearance (Clear) Urine Protein (Negative) Urine Ketones (Negative) Urine Blood (Negative) Ur Leukocyte Esterase (Negative) Urine RBC (0-5) /hpf Urine WBC (0-5) /hpf Crossmatch 06/09/18 06/09/18 06/10/18 Range/Units 16:55 19:10 10:13 WBC (3.8-10.6) k/uL RBC 2.19 L (3.80-5.40) m/uL Hgb 6.5 L* D (11.4-16.0) gm/dL Hct 20.4 L (34.0-46.0) % RDW 15.7 H (11.5-15.5) % Neutrophils # (1.3-7.7) k/uL APTT 21.0 L (22.0-30.0) sec Sodium (137-145) mmol/L Chloride (98-107) mmol/L BUN (7-17) mg/dL Creatinine (0.52-1.04) mg/dL Glucose (74-99) mg/dL Plasma Lactic Acid Al (0.7-2.0) mmol/L Magnesium (1.6-2.3) mg/dL AST (14-36) U/L Total Protein (6.3-8.2) g/dL Albumin (3.5-5.0) g/dL Urine Appearance Turbid H (Clear) Urine Protein 2+ H (Negative) Urine Ketones Trace H (Negative) Urine Blood Large H (Negative) Ur Leukocyte Esterase Moderate H (Negative) Urine RBC >182 H (0-5) /hpf Urine WBC 154 H (0-5) /hpf Crossmatch 06/10/18 06/10/18 Range/Units 10:13 12:20 WBC (3.8-10.6) k/uL RBC (3.80-5.40) m/uL Hgb (11.4-16.0) gm/dL Hct (34.0-46.0) % RDW (11.5-15.5) % Neutrophils # (1.3-7.7) k/uL APTT (22.0-30.0) sec Sodium 136 L (137-145) mmol/L Chloride (98-107) mmol/L BUN 33 H (7-17) mg/dL Creatinine 1.50 H (0.52-1.04) mg/dL Glucose (74-99) mg/dL Plasma Lactic Acid Al (0.7-2.0) mmol/L Magnesium (1.6-2.3) mg/dL AST (14-36) U/L Total Protein 5.5 L (6.3-8.2) g/dL Albumin 2.9 L (3.5-5.0) g/dL Urine Appearance (Clear) Urine Protein (Negative) Urine Ketones (Negative) Urine Blood (Negative) Ur Leukocyte Esterase (Negative) Urine RBC (0-5) /hpf Urine WBC (0-5) /hpf Crossmatch See Detail Microbiology - Last 24 Hours (Table) 06/09/18 19:10 Urine Culture - Preliminary Urine,Clean Catch Thrombosis Risk Factor Assmnt - DVT/VTE Prophylaxis DVT/VTE Prophylaxis: Mechanical Prophylaxis ordered - Choose All That Apply Any of the Below Risk Factors Present?: Yes Each Factor Represents 1 point: Obesity (BMI >25) Each Risk Factor Represents 3 Points: Age 75 years or older Thrombosis Risk Factor Assessment Total Risk Factor Score: 4 Thrombosis Risk Factor Assessment Level: Moderate Risk Assessment and Plan Plan: 1. Gross hematuria with vaginal bleeding with history of newly diagnosed Bladder cancer, [facility] is anticipating bladder surgery around May 2018, Dr. Roberts, urologist. Hemoglobin dropped to 6.5 today urology consult placed for possible cystoscopy. patient had Cystoscopy, evacuation of clot, transverse resection of bladder tumor, exploratory laparotomy with closure of bladder laceration in 2017. 2. Acute inferior wall STEMI involving RCA requiring drug-eluting stent to 99% of stenosis down to 0% successful stenting, performed 05/06/2018 Dr. Marie patient currently is on Lipitor 80 mg daily, Tenormin 25 mg daily, Plavix 75 mg daily aspirin 81 mg daily 3. Acute on Chronic blood loss anemia hemoglobin is 9.0,hb reduced to 6.5 s/p 1 unit prbc 4. Acute UTI with hematuria. Levofloxacin initiated at 500 mg IV daily 5. Acute abdominal pain in the lower quadrant of the abdomen CT abdomen ordered with oral contrast no IV contrast needed to evaluate abdominal etiology. No diarrhea since patient's pain on the floor. 6. Neurocognitive deficits with memory loss, on Namenda 10 mg PAD, patient is not on any anticholinesterase medication. 7. Insomnia, schedule melatonin 6 mg at bedtime. 8. Hypertensive Vascular disease. Continue atenolol. 9. DVT prophylaxis, high risk known bladder cancer, with SCDs 10. Diabetes mellitus type 2 insulin requiring, uncontrolled with hypoglycemia. continue Lantus 35 units reduced from 55 units continue NovoLog scale, hemoglobin A1c is 7.0. 11. Acute kidney injury secondary to ATN/ dehydration secondary to hemodynamic instability with CKD stage III nephrotoxins will be avoided 12. Dysthymia, Zoloft 50 mg daily 13.Restless leg, on Mirapex 0.125 mg daily when necessary, iron studies to be obtained mite replacement Discharge plan: PT ot evaluation
[2018-06-10 17:38] LABS: Glucose,Whole Blood 83 mg/dL (75-99)
[2018-06-10] MEDS: IOPAMIDOL-300 CONTRAST 30 ML VIAL (ORAL USE) PO PRN ×2 (17:54→18:47)
--- NOTE | 2018-06-10 18:03 | P.GSCN ---
History of Present Illness Consult date: 06/10/18 History of present illness: The patient is a 78-year-old female well known to me for bladder cancer. A few months ago she had resection of a muscle invasive bladder cancer. Due to her age and early Alzheimer's his son and I elected to repeat the resection to see if she had any remaining disease but unfortunately several events of transpired. She ended up with a myocardial infarction requiring cardiac stents. This is required persistent anticoagulation. She has had persistent bleeding since then.Dr. Blount over the ended up doing an emergency exploration and evacuation of clot and resection of tumor and repair of a bladder laceration. The tumor did not show any muscle invasion. She had a protracted postoperative course but eventually was discharged to a nursing facility with a suprapubic tube. This was removed recently. Her son stated that she continued to have hematuria. I spoke with him just before . The plan was for him to bring a urinalysis to the office to see if it was infected that. If so we're going to treat that. If not then she was probably giving need either reexploration and/or earlier treatment with radiation then planned. She ended up in the hospital with confusion and anemia with a hemoglobin of 6.5. Apparently she had clots however this afternoon her urine is reddish without any clots. She cannot communicate any history this afternoon. She has received 1 unit of blood. Review of Systems ROS unobtainable: due to mental status Past Medical History Past Medical History: Coronary Artery Disease (CAD), Cancer, Chest Pain / Angina , Dementia, Diabetes Mellitus, Hyperlipidemia, Hypertension, Memory Impairment, Myocardial Infarction ([place]), Osteoarthritis ([place]) Additional Past Medical History / Comment(s): Restless leg syndrome, Bladder Cancer with Gross hematuria dementia Last Myocardial Infarction Date:: 05/06/18 History of Any Multi-Drug Resistant Organisms: None Reported Past Surgical History: Cholecystectomy, Heart Catheterization With Stent Additional Past Surgical History / Comment(s): Arthroscopic knee surgery left, Left ankle surgery 09/17/2014, Past Anesthesia/Blood Transfusion Reactions: No Reported Reaction Date of Last Stent Placement:: 05/06/18 Past Psychological History: No Psychological Hx Reported Smoking Status: Former smoker - Past Family History Father Family Medical History: Dementia Additional Family Medical History / Comment(s): ?mi Mother Family Medical History: Cancer (Pancreas) Sister(s) Family Medical History: Cancer (Lung cancer) Brother(s) Family Medical History: No Reported History Son(s) Family Medical History: No Reported History (Healthy) Medications and Allergies Home Medications Medication Instructions Recorded Confirmed Type Atenolol [Tenormin] 25 mg PO DAILY 09/17/14 06/09/18 History Famotidine [Pepcid] 20 mg PO BID 05/06/18 06/09/18 History Memantine [Namenda] 10 mg PO BID 05/06/18 06/09/18 History Pramipexole [Mirapex] 0.125 mg PO DAILY PRN 05/06/18 06/09/18 History Sertraline [Zoloft] 50 mg PO DAILY 05/06/18 06/09/18 History Clopidogrel [Plavix] 75 mg PO DAILY tab 05/16/18 06/09/18 Rx Nitroglycerin Sl Tabs [Nitrostat] 0.4 mg SUBLINGUAL Q5M PRN tab 05/16/18 Rx Donepezil [Aricept] 10 mg PO HS 06/09/18 06/09/18 History Insulin Glargine [Lantus] 55 unit SQ DAILY 06/09/18 06/09/18 History Losartan/Hydrochlorothiazide 1 tab PO DAILY 06/09/18 06/09/18 History [Hyzaar 100-25 Tablet] Pravastatin Sodium [Pravachol] 40 mg PO DAILY 06/09/18 06/09/18 History Tumeric (Unknown Dose) 1 tab PO DAILY 06/09/18 06/09/18 History Ubidecarenone [Co Q-10] 100 mg PO DAILY 06/09/18 06/09/18 History Allergies Allergy/AdvReac Type Severity Reaction Status Date / Time Penicillins AdvReac Mild Unknown Verified 06/09/18 19:53 Surgical - Exam Vital Signs Temp Pulse Resp BP Pulse Ox 99.0 F 78 18 100/80 100 06/09/18 16:04 06/09/18 16:04 06/09/18 16:04 06/09/18 16:04 06/09/18 16:04 - General well developed, well nourished, chronically ill - Eyes pale - Respiratory normal expansion, normal respiratory effort - Cardiovascular Rhythm: irregularly irregular - Abdomen Abdomen: soft, non tender - Neurologic disoriented Results - Labs 06/10/18 10:13 06/10/18 10:13 Abnormal Lab Results - Last 24 Hours (Table) 06/09/18 06/10/18 06/10/18 Range/Units 19:10 10:13 10:13 RBC 2.19 L (3.80-5.40) m/uL Hgb 6.5 L* D (11.4-16.0) gm/dL Hct 20.4 L (34.0-46.0) % RDW 15.7 H (11.5-15.5) % Sodium 136 L (137-145) mmol/L BUN 33 H (7-17) mg/dL Creatinine 1.50 H (0.52-1.04) mg/dL Total Protein 5.5 L (6.3-8.2) g/dL Albumin 2.9 L (3.5-5.0) g/dL Urine Appearance Turbid H (Clear) Urine Protein 2+ H (Negative) Urine Ketones Trace H (Negative) Urine Blood Large H (Negative) Ur Leukocyte Esterase Moderate H (Negative) Urine RBC >182 H (0-5) /hpf Urine WBC 154 H (0-5) /hpf Crossmatch 06/10/18 Range/Units 12:20 RBC (3.80-5.40) m/uL Hgb (11.4-16.0) gm/dL Hct (34.0-46.0) % RDW (11.5-15.5) % Sodium (137-145) mmol/L BUN (7-17) mg/dL Creatinine (0.52-1.04) mg/dL Total Protein (6.3-8.2) g/dL Albumin (3.5-5.0) g/dL Urine Appearance (Clear) Urine Protein (Negative) Urine Ketones (Negative) Urine Blood (Negative) Ur Leukocyte Esterase (Negative) Urine RBC (0-5) /hpf Urine WBC (0-5) /hpf Crossmatch See Detail Microbiology - Last 24 Hours (Table) 06/09/18 19:10 Urine Culture - Preliminary Urine,Clean Catch Diabetes panel 06/10/18 Range/Units 10:13 Sodium 136 L (137-145) mmol/L Potassium 3.6 (3.5-5.1) mmol/L Chloride 104 (98-107) mmol/L Carbon Dioxide 22 (22-30) mmol/L BUN 33 H (7-17) mg/dL Creatinine 1.50 H (0.52-1.04) mg/dL Glucose 87 (74-99) mg/dL Calcium 8.5 (8.4-10.2) mg/dL AST 20 (14-36) U/L ALT 23 (9-52) U/L Alkaline Phosphatase 60 (38-126) U/L Total Protein 5.5 L (6.3-8.2) g/dL Albumin 2.9 L (3.5-5.0) g/dL Calcium panel 06/10/18 Range/Units 10:13 Calcium 8.5 (8.4-10.2) mg/dL Albumin 2.9 L (3.5-5.0) g/dL Pituitary panel 06/10/18 Range/Units 10:13 Sodium 136 L (137-145) mmol/L Potassium 3.6 (3.5-5.1) mmol/L Chloride 104 (98-107) mmol/L Carbon Dioxide 22 (22-30) mmol/L BUN 33 H (7-17) mg/dL Creatinine 1.50 H (0.52-1.04) mg/dL Glucose 87 (74-99) mg/dL Calcium 8.5 (8.4-10.2) mg/dL Adrenal panel 06/10/18 Range/Units 10:13 Sodium 136 L (137-145) mmol/L Potassium 3.6 (3.5-5.1) mmol/L Chloride 104 (98-107) mmol/L Carbon Dioxide 22 (22-30) mmol/L BUN 33 H (7-17) mg/dL Creatinine 1.50 H (0.52-1.04) mg/dL Glucose 87 (74-99) mg/dL Calcium 8.5 (8.4-10.2) mg/dL Total Bilirubin 0.4 (0.2-1.3) mg/dL AST 20 (14-36) U/L ALT 23 (9-52) U/L Alkaline Phosphatase 60 (38-126) U/L Total Protein 5.5 L (6.3-8.2) g/dL Albumin 2.9 L (3.5-5.0) g/dL Assessment and Plan Assessment: Impression: #1 history of muscle invasive bladder cancer #2 persistent hematuria aggravated by anticoagulation required for drug-eluting stents recently placed for heart attack. #3 possible urine infection based on urinalysis #4: Multiple medical illnesses Recommendations: The patient will continue to be monitored for blood loss. She has received 1 unit of blood. She's been placed on antibiotics. Cultures have been obtained. If the cultures are negative then she will probably need cystoscopy followed by radiation therapy. If the cultures are positive then treatment with antibiotics can control the bleeding before final decision as to when to begin the radiation therapy.
[2018-06-10 20:15] LABS: Glucose,Whole Blood 104 mg/dL (75-99)
--- NOTE | 2018-06-10 20:17 | CT ---
EXAMINATION TYPE: CT abdomen pelvis wo con DATE OF EXAM: 06/10/2018 COMPARISON: 05/20/2012 HISTORY: Abdominal pain CT DLP: 847.3 mGycm Automated exposure control for dose reduction was used. TECHNIQUE: Helical acquisition of images was performed from the lung bases through the pelvis. FINDINGS: There are bilateral pleural effusions. There is bilateral lower lobe infiltrates and atelectasis. There are clips from cholecystectomy. Liver shows no focal defect. Spleen appears normal. There is no pancreatic mass. Stomach appears normal. There is no adrenal mass. There is right-sided hydronephros is and hydroureter. There is question of increased density in the posterior urinary bladder. I do not see a definite right-sided ureteral calculus. There is no free fluid in the pelvis. Uterus is anteve rted. There are numerous diverticula in the sigmoid colon. Left kidney shows no sign of obstruction. There is no retroperitoneal adenopathy. Appendix appears normal. There is no sign of free air. The malcolm mbar spine is intact. Bony pelvis is intact. IMPRESSION: RIGHT-SIDED HYDRONEPHROSIS IS NEW COMPARED TO OLD EXAM. BLADDER MASS THAT MEASURES 4 X 2 CM ON THE P OSTERIOR WALL OF THE URINARY BLADDER. NO URETERAL CALCULUS SEEN ON THE RIGHT SIDE. RIGHT RENAL OBSTRU CTION. THERE ARE NEW BASILAR PULMONARY INFILTRATES AND ATELECTASIS COMPARED TO OLD EXAM. NEW PLEURAL EFFUSIO NS. SIGMOID DIVERTICULOSIS WITHOUT DIVERTICULITIS.
[2018-06-10] MEDS: INSULIN DETEMIR 100 UNIT/ML 10 ML VIAL SQ SCH (20:28)
[2018-06-10 22:00] LABS: Basophils % (A) 0 %; Eosinophils # (A) 0.3 k/uL (0-0.7); Eosinophils % (A) 3 %; HCT 25.5 % (34.0-46.0); Hypochromasia Moderate; Lymphocytes # (A) 1.5 k/uL (1.0-4.8); Lymphocytes % (A) 17 %; MCH 30.1 pg (25.0-35.0); MCHC 31.4 g/dL (31.0-37.0); MCV 95.9 fL (80.0-100.0); Mean Platelet Volume 6.6; Monocytes # (A) 0.6 k/uL (0-1.0); Monocytes % (A) 6 %; Neutrophils # (A) 6.5 k/uL (1.3-7.7); Neutrophils % (A) 72 %; Platelet Count 246 k/uL (150-450); RBC 2.66 m/uL (3.80-5.40); RDW 15.2 % (11.5-15.5)
[2018-06-10] MEDS ORDERED: INSULIN ASPART 100 UNIT/ML 1 ML 10 ML VIAL SQ SCH (23:00)
[2018-06-11] MEDS: ACETAMINOPHEN TAB 325 MG TAB PO PRN ×4 (02:34→21:51)
[2018-06-11] MEDS: SODIUM CHLORIDE 0.9% 1,000 ML IV SCH (03:23)
[2018-06-11 07:17] LABS: Basophils % (A) 0 %; Eosinophils # (A) 0.3 k/uL (0-0.7); Eosinophils % (A) 3 %; HCT 25.2 % (34.0-46.0); HGB 8.1 gm/dL (11.4-16.0); Hypochromasia Slight; Lymphocytes # (A) 1.6 k/uL (1.0-4.8); Lymphocytes % (A) 16 %; MCH 30.2 pg (25.0-35.0); MCHC 32.3 g/dL (31.0-37.0); MCV 93.4 fL (80.0-100.0); Mean Platelet Volume 6.6; Monocytes # (A) 0.4 k/uL (0-1.0); Monocytes % (A) 4 %; Neutrophils # (A) 7.4 k/uL (1.3-7.7); Neutrophils % (A) 75 %; Platelet Count 287 k/uL (150-450); Poikilocytosis Slight; RBC 2.69 m/uL (3.80-5.40); RDW 15.5 % (11.5-15.5); WBC 9.8 k/uL (3.8-10.6)
[2018-06-11 07:17] LABS: Glucose,Whole Blood 80 mg/dL (75-99)
[2018-06-11 07:26] LABS: Calcium 8.9 mg/dL (8.4-10.2); Total Bilirubin 0.9 mg/dL (0.2-1.3); Total Protein 5.7 g/dL (6.3-8.2)
[2018-06-11] MEDS: INSULIN ASPART 100 UNIT/ML 1 ML 10 ML VIAL SQ SCH ×4 (07:33→21:47)
[2018-06-11 09:37] LABS: Glucose,Whole Blood 138 mg/dL (75-99)
[2018-06-11] MEDS: ATENOLOL 25 MG TAB PO SCH (10:31)
[2018-06-11] MEDS: CLOPIDOGREL 75 MG TAB PO SCH (10:31)
[2018-06-11] MEDS: PANTOPRAZOLE 40 MG/10 ML VIAL IVP SCH (10:31)
[2018-06-11] MEDS: LEVOFLOXACIN 500MG-D5W PMX 500 MG in DEXTROSE/WATER 1 100ML.BAG IVPB SCH (10:33)
[2018-06-11] MEDS ORDERED: LORazepam 2 MG/ML INJ IV STA (10:35)
[2018-06-11] MEDS: SERTRALINE 50 MG TAB PO SCH (10:39)
[2018-06-11] MEDS: PRAVASTATIN SODIUM 40 MG TAB PO SCH (10:39)
[2018-06-11] MEDS: MEMANTINE 10 MG TAB PO SCH ×2 (10:39→21:47)
[2018-06-11 11:35] LABS: Hemoglobin A1C 5.4 % (4.0-6.0)
--- NOTE | 2018-06-11 11:36 | P.PN ---
Subjective Progress Note Date: 06/11/18 The patient had a unit of blood yesterday. Hemoglobin was-8.1 and has stayed at that level and the last 12 hours. There is still little bit of blood in the urine. I will contact Dr. Chiu of radiation oncology as we will probably consider starting the radiation relatively soon. Objective - Vital Signs Vital signs: Vital Signs Temp 97.3 F L 06/11/18 04:00 Pulse 65 06/11/18 04:00 Resp 18 06/11/18 04:00 BP 158/66 06/11/18 04:00 Pulse Ox 98 06/11/18 04:00 Intake & Output 06/10/18 06/11/18 06/11/18 18:59 06:59 18:59 Intake Total 310 820 Balance 310 820 Intake: Intake, IV Titration 240 Amount Sodium Chloride 0.9% 1, 240 000 ml @ 75 mls/hr IV . [id number] MIMA Rx#:[id number] Oral 580 Blood Product 310 Rc Irr As1 Unit 310 [id number] Other: Voiding Method Bedpan Bedpan Incontinent Incontinent # Voids 2 6 2 # Bowel Movements 6 1 - Labs CBC & Chem 7: 06/11/18 06:18 06/11/18 06:18 Labs: Abnormal Lab Results - Last 24 Hours (Table) 06/10/18 06/10/18 06/10/18 Range/Units 12:20 20:14 21:17 RBC 2.66 L (3.80-5.40) m/uL Hgb 8.0 L D (11.4-16.0) gm/dL Hct 25.5 L (34.0-46.0) % Sodium (137-145) mmol/L BUN (7-17) mg/dL Creatinine (0.52-1.04) mg/dL Glucose (74-99) mg/dL POC Glucose (mg/dL) 104 H (75-99) mg/dL Total Protein (6.3-8.2) g/dL Albumin (3.5-5.0) g/dL Crossmatch See Detail 06/11/18 06/11/18 06/11/18 Range/Units 06:18 06:18 09:35 RBC 2.69 L (3.80-5.40) m/uL Hgb 8.1 L (11.4-16.0) gm/dL Hct 25.2 L (34.0-46.0) % Sodium 136 L (137-145) mmol/L BUN 26 H (7-17) mg/dL Creatinine 1.51 H (0.52-1.04) mg/dL Glucose 67 L (74-99) mg/dL POC Glucose (mg/dL) 138 H (75-99) mg/dL Total Protein 5.7 L (6.3-8.2) g/dL Albumin 3.0 L (3.5-5.0) g/dL Crossmatch
--- NOTE | 2018-06-11 11:45 | XR ---
EXAMINATION TYPE: XR chest 2V DATE OF EXAM: 06/11/2018 COMPARISON: 06/09/2018 HISTORY: Shortness of breath TECHNIQUE: Frontal and lateral views of the chest are obtained. FINDINGS: Scattered senescent parenchymal changes noted. Hyperinflation compatible with COPD. Linear atelectasis left perihilar region. Mild pulmonary venous congestion without overt failure at t his time. Small bilateral pleural effusions. Heart size is stable. Mediastinal structures are stable and grossly unremarkable. No evidence for hilar prominence. Degenerative changes dorsal spine. IMPRESSION: 1. Linear atelectasis left perihilar region. Mild pulmonary venous congestion without overt failure a t this time. Small bilateral pleural effusions.
[2018-06-11 12:26] LABS: Glucose,Whole Blood 147 mg/dL (75-99)
--- NOTE | 2018-06-11 13:53 | P.PN ---
Subjective Progress Note Date: 06/11/18 his is a 78-year-old pleasant female patient of Dr. Joshua Roper and Dr. Martinez underlying history of dementia, diabetes mellitus type 2, hypertension, hyperlipidemia, who is currently a very poor historian. He was last admitted on 05/07 for a prolonged hospital course and was treated for acute inferior wall STEMI involving the RCA requiring drug-eluting stent, patient also underwent cystoscopy for hematuria ending up having exploratory laparotomy with closure of bladder laceration post cystoscopy with history of bladder cancer which is newly diagnosed and eventually need radiation, hypertensive vascular disease, dysthymia, neurocognitive deficits with memory loss secondary to dementia comes in with gross hematuria and nausea and vomiting with increased weakness for the past 3-4 days. On evaluation patient denies having nausea or vomiting but does complain of stomach upset. She is very drowsy and falls back to sleep. No known evaluation of the blood work done in the ER , patient had a hemoglobin of 8.1 and leukocytosis 15.2, creatinine 1.58, BUN [address] head was done which was negative for acute changes chest x-ray negative for any acute changes. Urinalysis suggestive of more than 182 RBCs and WBCs 154. Vital signs assessed in the ER temp 99, blood pressure 100/80, pulse is 78. She does have a catheter patient was admitted for acute UTI, dehydration and gastroenteritis. Urology consult placed 06/11 patient examined at bedside oriented 1. Talked to the son in length about patient's ongoing hematuria. Urine cultures are still pending him continue levofloxacin for now. Patient continues to have vaginal bleeding. Dr. Martinez is of air and is planning to talk to radiation oncology and see if radiation could be started sooner. CT abdomen and pelvis was obtained that suggested right-sided hydronephrosis with bladder mass for him to 2 cm on the posterior wall of urinary bladder no ureteral calculus seen on the right side field pulmonary infiltrate and atelectasis is seen with the per pleural effusion. Chest x-ray 2 view will be obtained. Patient also had an episode of agitation in the morning with jitteriness in her arms and legs. One dose of Ativan was given. Hemoglobin improved to 8 after transfusion ROS Constitutional: Denies chills, Denies fever, Denies lethargy, Denies malaise, Denies poor appetite, Denies weakness, Denies weight loss Eyes: denies decreased vision, denies diplopia, denies discharge, denies pain Ears: deny: decreased hearing Ears, nose, mouth and throat: Denies dental pain, Denies headache, Denies nasal discharge, Denies nose pain Cardiovascular: Denies chest pain, Denies decreased exercise tolerance, Denies edema, Denies high blood pressure, Denies irregular heart beat, Denies palpitations, Denies paroxysmal nocturnal dyspnea, Denies rapid heart beat, Denies shortness of breath Respiratory: Denies congestion, Denies cough, Denies cough with sputum, Denies dyspnea, Denies home oxygen, Denies wheezing Gastrointestinal: Denies abdominal pain, Denies change in bowel habits, Denies coffee ground emesis, Denies early satiety, Denies excessive gas, Denies heartburn, Denies hematemesis, Denies hematochezia, Denies loss of appetite, Denies nausea, Denies vomiting Genitourinary: Denies dysuria, Denies flank pain, Denies kidney stones, Denies menorrhagia, Denies urgency, Denies urinary frequency, hematuria Musculoskeletal: Denies gait dysfunction, Denies limitation of motion, Denies morning stiffness, Denies muscle cramps Integumentary: Denies rash, Denies wounds, Denies brittle nails, Denies change in hair/nails, Denies darkening of skin Neurological: Denies balance difficulties, Denies change in speech, Denies double vision, Denies gait dysfunction, Denies loss of vision, Denies motor disturbance, Denies numbness, Denies paralysis, Denies paresthesias, Denies seizures Psychiatric: endorses anxiety, Denies depression Objective - Vital Signs Vital signs: Vital Signs Temp 98.0 F 06/11/18 12:20 Pulse 66 06/11/18 12:20 Resp 16 06/11/18 12:20 BP 111/50 06/11/18 12:20 Pulse Ox 93 L 06/11/18 12:20 Intake & Output 06/10/18 06/11/18 06/11/18 18:59 06:59 18:59 Intake Total 310 820 Balance 310 820 Weight 78.5 kg Intake: Intake, IV Titration 240 Amount Sodium Chloride 0.9% 1, 240 000 ml @ 75 mls/hr IV . [id number] [facility] Rx#:[id number] Oral 580 Blood Product 310 Rc Irr As1 Unit 310 [id number] Other: Voiding Method Bedpan Bedpan Bedpan Incontinent Incontinent Diaper Incontinent # Voids 2 6 2 # Bowel Movements 6 1 - Exam - Constitutional General appearance: cooperative, no acute distress, obese, O X1 - EENT Eyes: anicteric sclerae, PERRLA, normal appearance ENT: hearing grossly normal - Neck Neck: no lymphadenopathy, normal ROM, no other, no rigidity, no stridor, no thyromegaly - Respiratory Respiratory: bilateral: CTA, negative: diminished, dullness, rales, rhonchi - Cardiovascular Rhythm: regular Heart sounds: normal: S1, S2 Abnormal Heart Sounds: 2/ 5 systolic murmur, no diastolic murmur - Gastrointestinal General gastrointestinal: normal bowel sounds, soft non tender - Integumentary Integumentary: no rash - Neurologic Neurologic: CNII-XII intact - Musculoskeletal Musculoskeletal: gait n ot assesed strength equal bilaterally - Psychiatric Psychiatric: A&O x's 1, appropriate affect - Labs CBC & Chem 7: 06/11/18 06:18 06/11/18 06:18 Labs: Abnormal Lab Results - Last 24 Hours (Table) 06/10/18 06/10/18 06/10/18 Range/Units 12:20 20:14 21:17 RBC 2.66 L (3.80-5.40) m/uL Hgb 8.0 L D (11.4-16.0) gm/dL Hct 25.5 L (34.0-46.0) % Sodium (137-145) mmol/L BUN (7-17) mg/dL Creatinine (0.52-1.04) mg/dL Glucose (74-99) mg/dL POC Glucose (mg/dL) 104 H (75-99) mg/dL Total Protein (6.3-8.2) g/dL Albumin (3.5-5.0) g/dL Crossmatch See Detail 06/11/18 06/11/18 06/11/18 Range/Units 06:18 06:18 09:35 RBC 2.69 L (3.80-5.40) m/uL Hgb 8.1 L (11.4-16.0) gm/dL Hct 25.2 L (34.0-46.0) % Sodium 136 L (137-145) mmol/L BUN 26 H (7-17) mg/dL Creatinine 1.51 H (0.52-1.04) mg/dL Glucose 67 L (74-99) mg/dL POC Glucose (mg/dL) 138 H (75-99) mg/dL Total Protein 5.7 L (6.3-8.2) g/dL Albumin 3.0 L (3.5-5.0) g/dL Crossmatch 06/11/18 Range/Units 12:24 RBC (3.80-5.40) m/uL Hgb (11.4-16.0) gm/dL Hct (34.0-46.0) % Sodium (137-145) mmol/L BUN (7-17) mg/dL Creatinine (0.52-1.04) mg/dL Glucose (74-99) mg/dL POC Glucose (mg/dL) 147 H (75-99) mg/dL Total Protein (6.3-8.2) g/dL Albumin (3.5-5.0) g/dL Crossmatch Assessment and Plan Plan: 1. Gross hematuria with vaginal bleeding with history of newly diagnosed Bladder cancer, [facility] is anticipating bladder surgery around May 2018, Dr. Roberts, urologist. Hemoglobin improved to 8 from 6.5 npost transfusion urology consult placed for possible cystoscopy. patient had Cystoscopy, evacuation of clot, transverse resection of bladder tumor, exploratory laparotomy with closure of bladder laceration in 2017. Dr. Chiu of radiation oncology will be consulted for probably considering starting the radiation. CT abd with new hydronephrosis on the right . I and O monitoring 2. Acute inferior wall STEMI involving RCA requiring drug-eluting stent to 99% of stenosis down to 0% successful stenting, performed 05/06/2018 Dr. Marie patient currently is on Lipitor 80 mg daily, Tenormin 25 mg daily, Plavix 75 mg daily aspirin 81 mg daily 3. Acute on Chronic blood loss anemia hemoglobin is 9.0,hb reduced to 6.5 s/p 1 unit prbc 4. Acute UTI with hematuria. Levofloxacin initiated at 500 mg IV daily. UC pending 5. Acute abdominal pain in the lower quadrant of the abdomen CT abdomen ordered with oral contrast no IV contrast needed to evaluate abdominal etiology. No diarrhea since patient's pain on the floor. 6. Neurocognitive deficits with memory loss, on Namenda 10 mg PAD, patient is not on any anticholinesterase medication. 7. Insomnia, schedule melatonin 6 mg at bedtime. 8. Hypertensive Vascular disease. Continue atenolol. 9. DVT prophylaxis, high risk known bladder cancer, with SCDs 10. Diabetes mellitus type 2 insulin requiring, uncontrolled with hypoglycemia. continue Lantus 35 units reduced from 55 units continue NovoLog scale, hemoglobin A1c is 7.0. 11. Acute kidney injury secondary to ATN/ dehydration secondary to hemodynamic instability with CKD stage III nephrotoxins will be avoided 12. Dysthymia, Zoloft 50 mg daily 13.Restless leg, on Mirapex 0.125 mg daily when necessary, iron studies to be obtained mite replacement 14. Agitation - ativan 0.5 mg iv q6 hr as neede d Discharge plan: PT ot evaluation
[2018-06-11 17:04] LABS: Glucose,Whole Blood 106 mg/dL (75-99)
[2018-06-11] MEDS: LORazepam 2 MG/ML INJ IV PRN (17:28)
[2018-06-11 20:00] LABS: Glucose,Whole Blood 203 mg/dL (75-99)
[2018-06-11] MEDS: INSULIN DETEMIR 100 UNIT/ML 10 ML VIAL SQ SCH (21:47)
[2018-06-11] MEDS: PRAMIPEXOLE 0.125 MG TAB PO PRN (21:48)
[2018-06-12] MEDS: LORazepam 2 MG/ML INJ IV PRN ×3 (00:19→13:28)
[2018-06-12 06:50] LABS: Glucose,Whole Blood 57 mg/dL (75-99)
[2018-06-12] MEDS ORDERED: DEXTROSE 50%-WATER 50 ML SYRINGE IVP STA (06:56)
[2018-06-12] MEDS: INSULIN ASPART 100 UNIT/ML 1 ML 10 ML VIAL SQ SCH ×4 (06:57→21:30)
[2018-06-12 07:09] LABS: Glucose,Whole Blood 260 mg/dL (75-99)
[2018-06-12 09:29] LABS: Basophils % (A) 0 %; Eosinophils # (A) 0.2 k/uL (0-0.7); Eosinophils % (A) 2 %; HCT 22.1 % (34.0-46.0); HGB 7.1 gm/dL (11.4-16.0); Hypochromasia Slight; Lymphocytes % (A) 12 %; MCH 30.1 pg (25.0-35.0); MCHC 32.1 g/dL (31.0-37.0); MCV 93.9 fL (80.0-100.0); Mean Platelet Volume 6.6; Monocytes # (A) 0.4 k/uL (0-1.0); Monocytes % (A) 5 %; Neutrophils # (A) 6.6 k/uL (1.3-7.7); Neutrophils % (A) 79 %; Platelet Count 266 k/uL (150-450); RBC 2.36 m/uL (3.80-5.40); RDW 15.6 % (11.5-15.5); WBC 8.3 k/uL (3.8-10.6)
[2018-06-12] MEDS: ATENOLOL 25 MG TAB PO SCH (09:32)
[2018-06-12] MEDS: SERTRALINE 50 MG TAB PO SCH (09:32)
[2018-06-12] MEDS: LEVOFLOXACIN 250 MG TAB PO SCH (09:32)
[2018-06-12] MEDS: CLOPIDOGREL 75 MG TAB PO SCH (09:32)
[2018-06-12] MEDS: MEMANTINE 10 MG TAB PO SCH ×2 (09:32→21:56)
[2018-06-12] MEDS: PRAVASTATIN SODIUM 40 MG TAB PO SCH (09:32)
[2018-06-12] MEDS: PANTOPRAZOLE 40 MG/10 ML VIAL IVP SCH (09:33)
[2018-06-12] MEDS: ACETAMINOPHEN TAB 325 MG TAB PO PRN ×2 (09:34→23:07)
[2018-06-12 09:41] LABS: Albumin 2.8 g/dL (3.5-5.0); Calcium 8.6 mg/dL (8.4-10.2); Potassium 3.4 mmol/L (3.5-5.1); Total Bilirubin 0.5 mg/dL (0.2-1.3); Total Protein 5.4 g/dL (6.3-8.2)
[2018-06-12 11:13] LABS: Glucose,Whole Blood 72 mg/dL (75-99)
--- NOTE | 2018-06-12 15:02 | P.PN ---
Subjective Progress Note Date: 06/12/18 his is a 78-year-old pleasant female patient of Dr. Joshua Roper and Dr. Martinez underlying history of dementia, diabetes mellitus type 2, hypertension, hyperlipidemia, who is currently a very poor historian. He was last admitted on 05/07 for a prolonged hospital course and was treated for acute inferior wall STEMI involving the RCA requiring drug-eluting stent, patient also underwent cystoscopy for hematuria ending up having exploratory laparotomy with closure of bladder laceration post cystoscopy with history of bladder cancer which is newly diagnosed and eventually need radiation, hypertensive vascular disease, dysthymia, neurocognitive deficits with memory loss secondary to dementia comes in with gross hematuria and nausea and vomiting with increased weakness for the past 3-4 days. On evaluation patient denies having nausea or vomiting but does complain of stomach upset. She is very drowsy and falls back to sleep. No known evaluation of the blood work done in the ER , patient had a hemoglobin of 8.1 and leukocytosis 15.2, creatinine 1.58, BUN [address] head was done which was negative for acute changes chest x-ray negative for any acute changes. Urinalysis suggestive of more than 182 RBCs and WBCs 154. Vital signs assessed in the ER temp 99, blood pressure 100/80, pulse is 78. She does have a catheter patient was admitted for acute UTI, dehydration and gastroenteritis. Urology consult placed 06/11 patient examined at bedside oriented 1. Talked to the son in length about patient's ongoing hematuria. Urine cultures are still pending him continue levofloxacin for now. Patient continues to have vaginal bleeding. Dr. Martinez is of air and is planning to talk to radiation oncology and see if radiation could be started sooner. CT abdomen and pelvis was obtained that suggested right-sided hydronephrosis with bladder mass for him to 2 cm on the posterior wall of urinary bladder no ureteral calculus seen on the right side field pulmonary infiltrate and atelectasis is seen with the per pleural effusion. Chest x-ray 2 view will be obtained. Patient also had an episode of agitation in the morning with jitteriness in her arms and legs. One dose of Ativan was given. Hemoglobin improved to 8 after transfusion 06/12 patient has some confusion this morning. Hemoglobin has dropped to 7.[address] Rueda is taking patient for radiation today since there is no improvement in the hematuria. Due to patient's underlying dementia and increasing confusion will initiate patient on Seroquel low dose at bedtime. QT interval is normal will repeat EKG to assess for QT prolongation. Nurses instructed to minimize the use of Ativan needed. ROS Constitutional: Denies chills, Denies fever, Denies lethargy, Denies malaise, Denies poor appetite, Denies weakness, Denies weight loss Eyes: denies decreased vision, denies diplopia, denies discharge, denies pain Ears: deny: decreased hearing Ears, nose, mouth and throat: Denies dental pain, Denies headache, Denies nasal discharge, Denies nose pain Cardiovascular: Denies chest pain, Denies decreased exercise tolerance, Denies edema, Denies high blood pressure, Denies irregular heart beat, Denies palpitations, Denies paroxysmal nocturnal dyspnea, Denies rapid heart beat, Denies shortness of breath Respiratory: Denies congestion, Denies cough, Denies cough with sputum, Denies dyspnea, Denies home oxygen, Denies wheezing Gastrointestinal: Denies abdominal pain, Denies change in bowel habits, Denies coffee ground emesis, Denies early satiety, Denies excessive gas, Denies heartburn, Denies hematemesis, Denies hematochezia, Denies loss of appetite, Denies nausea, Denies vomiting Genitourinary: Denies dysuria, Denies flank pain, Denies kidney stones, Denies menorrhagia, Denies urgency, Denies urinary frequency, hematuria Musculoskeletal: Denies gait dysfunction, Denies limitation of motion, Denies morning stiffness, Denies muscle cramps Integumentary: Denies rash, Denies wounds, Denies brittle nails, Denies change in hair/nails, Denies darkening of skin Neurological: confusion Denies balance difficulties, Denies change in speech, Denies double vision, Denies gait dysfunction, Denies loss of vision, Denies motor disturbance, Denies numbness, Denies paralysis, Denies paresthesias, Denies seizures Psychiatric: endorses anxiety, Denies depression Objective - Vital Signs Vital signs: Vital Signs Temp 97.6 F 06/12/18 11:38 Pulse 71 06/12/18 11:38 Resp 18 06/12/18 11:38 BP 117/71 06/12/18 11:38 Pulse Ox 97 06/12/18 11:38 Intake & Output 06/11/18 06/12/18 06/12/18 18:59 06:59 18:59 Intake Total 700 440 Output Total 289 2 Balance 411 438 Weight 78.5 kg 78.5 kg Intake: Intake, IV Titration 700 200 Amount Levofloxacin 500Mg-D5w 100 Pmx 500 mg In Dextrose/ Water 1 100ml.bag @ 100 mls/hr IVPB Q24H [facility] Rx#: [id number] Sodium Chloride 0.9% 1, 600 200 000 ml @ 75 mls/hr IV . [id number] [facility] Rx#:[id number] Oral 240 Output: Post Void Residual 288 Stool 1 2 Other: Voiding Method Bedpan Bedpan Diaper Diaper Diaper Incontinent Incontinent Incontinent # Voids 1 2 # Bowel Movements 1 - Exam - Constitutional General appearance: cooperative, no acute distress, obese, O X1 - EENT Eyes: anicteric sclerae, PERRLA, normal appearance ENT: hearing grossly normal - Neck Neck: no lymphadenopathy, normal ROM, no other, no rigidity, no stridor, no thyromegaly - Respiratory Respiratory: bilateral: CTA, negative: diminished, dullness, rales, rhonchi - Cardiovascular Rhythm: regular Heart sounds: normal: S1, S2 Abnormal Heart Sounds: 2/ 5 systolic murmur, no diastolic murmur - Gastrointestinal General gastrointestinal: normal bowel sounds, soft non tender - Integumentary Integumentary: no rash - Neurologic Neurologic: CNII-XII intact - Musculoskeletal Musculoskeletal: gait n ot assesed strength equal bilaterally - Psychiatric Psychiatric: A&O x's 1, appropriate affect - Labs CBC & Chem 7: 06/12/18 09:08 06/12/18 09:08 Labs: Abnormal Lab Results - Last 24 Hours (Table) 06/11/18 06/11/18 06/12/18 Range/Units 17:01 19:59 06:47 RBC (3.80-5.40) m/uL Hgb (11.4-16.0) gm/dL Hct (34.0-46.0) % RDW (11.5-15.5) % Sodium (137-145) mmol/L Potassium (3.5-5.1) mmol/L BUN (7-17) mg/dL Creatinine (0.52-1.04) mg/dL Glucose (74-99) mg/dL POC Glucose (mg/dL) 106 H 203 H 57 L (75-99) mg/dL Total Protein (6.3-8.2) g/dL Albumin (3.5-5.0) g/dL 06/12/18 06/12/18 06/12/18 Range/Units 07:06 09:08 09:08 RBC 2.36 L (3.80-5.40) m/uL Hgb 7.1 L (11.4-16.0) gm/dL Hct 22.1 L (34.0-46.0) % RDW 15.6 H (11.5-15.5) % Sodium 136 L (137-145) mmol/L Potassium 3.4 L (3.5-5.1) mmol/L BUN 19 H (7-17) mg/dL Creatinine 1.22 H (0.52-1.04) mg/dL Glucose 72 L (74-99) mg/dL POC Glucose (mg/dL) 260 H (75-99) mg/dL Total Protein 5.4 L (6.3-8.2) g/dL Albumin 2.8 L (3.5-5.0) g/dL 06/12/18 Range/Units 11:04 RBC (3.80-5.40) m/uL Hgb (11.4-16.0) gm/dL Hct (34.0-46.0) % RDW (11.5-15.5) % Sodium (137-145) mmol/L Potassium (3.5-5.1) mmol/L BUN (7-17) mg/dL Creatinine (0.52-1.04) mg/dL Glucose (74-99) mg/dL POC Glucose (mg/dL) 72 L (75-99) mg/dL Total Protein (6.3-8.2) g/dL Albumin (3.5-5.0) g/dL Microbiology - Last 24 Hours (Table) 06/09/18 19:10 Urine Culture - Final Urine,Clean Catch Assessment and Plan Plan: 1. Gross hematuria with vaginal bleeding with history of newly diagnosed Bladder cancer, [facility] is anticipating bladder surgery around May 2018, Dr. Roberts, urologist. Status post 1 unit PRBC. Hemoglobin 7.1 today we will repeat him CBC in the evening. urology consult placed for possible cystoscopy. patient had Cystoscopy, evacuation of clot, transverse resection of bladder tumor, exploratory laparotomy with closure of bladder laceration in 2017. Dr. Chiu of radiation oncology will be consulted for probably considering starting the radiation. CT abd with new hydronephrosis on the right . I and O monitoring 2. Acute inferior wall STEMI involving RCA requiring drug-eluting stent to 99% of stenosis down to 0% successful stenting, performed 05/06/2018 Dr. Marie patient currently is on Lipitor 80 mg daily, Tenormin 25 mg daily, Plavix 75 mg daily aspirin 81 mg daily 3. Acute on Chronic blood loss anemia hemoglobin is 9.0,hb reduced to 6.5 s/p 1 unit prbc 4. Acute UTI with hematuria. Levofloxacin initiated at 500 mg IV daily. UC pending 5. Acute abdominal pain in the lower quadrant of the abdomen CT abdomen ordered with oral contrast no IV contrast needed to evaluate abdominal etiology. No diarrhea since patient's pain on the floor. 6. Neurocognitive deficits with memory loss, on Namenda 10 mg PAD, patient is not on any anticholinesterase medication. 7. Insomnia, schedule melatonin 6 mg at bedtime. 8. Hypertensive Vascular disease. Continue atenolol. 9. DVT prophylaxis, high risk known bladder cancer, with SCDs 10. Diabetes mellitus type 2 insulin requiring, uncontrolled with hypoglycemia. continue Lantus 35 units reduced from 55 units continue NovoLog scale, hemoglobin A1c is 7.0. 11. Acute kidney injury secondary to ATN/ dehydration secondary to hemodynamic instability with CKD stage III nephrotoxins will be avoided 12. Dysthymia, Zoloft 50 mg daily 13.Restless leg, on Mirapex 0.125 mg daily when necessary, iron studies to be obtained mite replacement 14. Agitation - ativan 0.5 mg iv q6 hr as neede d Discharge plan: PT ot evaluation
--- NOTE | 2018-06-12 17:00 | P.CONS ---
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 She is status post TURBT, and was planning for possible anterior extenteration at [facility] when she unfortunately in late April 2018 she suffered an ID and ended up in the hospital. On that hospitalization she underwent urgent cardiac stent placement, and was subsequently started on antiplatelet therapy. This exacerbated the patient's hematuria. She was taken for cystoscopy on May 09, and there was significant clotting seen within the bladder. There was evidence of persistent tumor with a friable mass involving the right hemitrigone and right posterior lateral bladder wall. Additionally there was a bladder laceration in the left anterior lateral bladder wall. The procedure was converted to an exploratory laparotomy and the bladder laceration was repaired. Unfortunately she returns to the hospital prior to any definitive therapy for this malignancy. She presents with gross hematuria, nausea, vomiting with increased weakness for the past 3-[address] of the A/P on 06/10/18 visualized a 4 cm bladder mass with soft tissue extension likely outside of the bladder itself. Right sided hydronephrosis was noted. She complains of vaginal bleeding in relatively large volume. She is a poor historian secondary to her dementia, however, her son is present for our conversation today. Review of Systems ROS unobtainable: due to mental status Past Medical History Past Medical History: Coronary Artery Disease (CAD), Cancer, Chest Pain / Angina , Dementia, Diabetes Mellitus, Hyperlipidemia, Hypertension, Memory Impairment, Myocardial Infarction (ID), Osteoarthritis (OA) Additional Past Medical History / Comment(s): Restless leg syndrome, Bladder Cancer with Gross hematuria dementia Last Myocardial Infarction Date:: 05/06/18 History of Any Multi-Drug Resistant Organisms: None Reported Past Surgical History: Cholecystectomy, Heart Catheterization With Stent Additional Past Surgical History / Comment(s): Arthroscopic knee surgery left, Left ankle surgery 09/17/2014, Past Anesthesia/Blood Transfusion Reactions: No Reported Reaction Date of Last Stent Placement:: 05/06/18 Past Psychological History: No Psychological Hx Reported Smoking Status: Former smoker - Past Family History Father Family Medical History: Dementia Additional Family Medical History / Comment(s): ?mi Mother Family Medical History: Cancer (Pancreas) Sister(s) Family Medical History: Cancer (Lung cancer) Brother(s) Family Medical History: No Reported History Son(s) Family Medical History: No Reported History (Healthy) Medications and Allergies Home Medications Medication Instructions Recorded Confirmed Type Atenolol [Tenormin] 25 mg PO DAILY 09/17/14 06/09/18 History Famotidine [Pepcid] 20 mg PO BID 05/06/18 06/09/18 History Memantine [Namenda] 10 mg PO BID 05/06/18 06/09/18 History Pramipexole [Mirapex] 0.125 mg PO DAILY PRN 05/06/18 06/09/18 History Sertraline [Zoloft] 50 mg PO DAILY 05/06/18 06/09/18 History Clopidogrel [Plavix] 75 mg PO DAILY tab 05/16/18 06/09/18 Rx Nitroglycerin Sl Tabs [Nitrostat] 0.4 mg SUBLINGUAL Q5M PRN tab 05/16/18 Rx Donepezil [Aricept] 10 mg PO HS 06/09/18 06/09/18 History Insulin Glargine [Lantus] 55 unit SQ DAILY 06/09/18 06/09/18 History Losartan/Hydrochlorothiazide 1 tab PO DAILY 06/09/18 06/09/18 History [Hyzaar 100-25 Tablet] Pravastatin Sodium [Pravachol] 40 mg PO DAILY 06/09/18 06/09/18 History Tumeric (Unknown Dose) 1 tab PO DAILY 06/09/18 06/09/18 History Ubidecarenone [Co Q-10] 100 mg PO DAILY 06/09/18 06/09/18 History Allergies Allergy/AdvReac Type Severity Reaction Status Date / Time Penicillins AdvReac Mild Unknown Verified 06/09/18 19:53 Physical Exam Vitals: Vital Signs Temp Pulse Resp BP Pulse Ox 06/12/18 11:38 97.6 F 71 18 117/71 97 06/12/18 05:00 97.8 F 74 16 136/63 93 L 06/12/18 00:00 74 16 06/11/18 21:00 97.3 F L 74 16 112/51 96 Intake and Output 06/12/18 06/12/18 06/12/18 06:59 14:59 22:59 Intake Total 120 Output Total 2 Balance 118 Intake: Intake, IV Titration 120 Amount Sodium Chloride 0.9% 1, 120 000 ml @ 75 mls/hr IV . [id number] [facility] Rx#:[id number] Output: Stool 2 Other: Voiding Method Bedpan Diaper Diaper Incontinent Incontinent # Voids 2 2 Weight 78.5 kg - Constitutional General appearance: mild distress, obese - EENT Eyes: PERRLA - Neck Neck: normal ROM - Respiratory Respiratory: bilateral: dullness, rhonchi - Cardiovascular Rhythm: regular Heart sounds: normal: S1, S2 - Gastrointestinal General gastrointestinal: normal bowel sounds Localized gastrointestinal: tender: RLQ, LLQ, epigastric periumbilical, suprabubic Results CBC & Chem 7: 06/12/18 09:08 06/12/18 09:08 Labs: Abnormal Lab Results - Last 24 Hours (Table) 06/11/18 06/11/18 06/12/18 Range/Units 17:01 19:59 06:47 RBC (3.80-5.40) m/uL Hgb (11.4-16.0) gm/dL Hct (34.0-46.0) % RDW (11.5-15.5) % Sodium (137-145) mmol/L Potassium (3.5-5.1) mmol/L BUN (7-17) mg/dL Creatinine (0.52-1.04) mg/dL Glucose (74-99) mg/dL POC Glucose (mg/dL) 106 H 203 H 57 L (75-99) mg/dL Total Protein (6.3-8.2) g/dL Albumin (3.5-5.0) g/dL 06/12/18 06/12/18 06/12/18 Range/Units 07:06 09:08 09:08 RBC 2.36 L (3.80-5.40) m/uL Hgb 7.1 L (11.4-16.0) gm/dL Hct 22.1 L (34.0-46.0) % RDW 15.6 H (11.5-15.5) % Sodium 136 L (137-145) mmol/L Potassium 3.4 L (3.5-5.1) mmol/L BUN 19 H (7-17) mg/dL Creatinine 1.22 H (0.52-1.04) mg/dL Glucose 72 L (74-99) mg/dL POC Glucose (mg/dL) 260 H (75-99) mg/dL Total Protein 5.4 L (6.3-8.2) g/dL Albumin 2.8 L (3.5-5.0) g/dL 06/12/18 Range/Units 11:04 RBC (3.80-5.40) m/uL Hgb (11.4-16.0) gm/dL Hct (34.0-46.0) % RDW (11.5-15.5) % Sodium (137-145) mmol/L Potassium (3.5-5.1) mmol/L BUN (7-17) mg/dL Creatinine (0.52-1.04) mg/dL Glucose (74-99) mg/dL POC Glucose (mg/dL) 72 L (75-99) mg/dL Total Protein (6.3-8.2) g/dL Albumin (3.5-5.0) g/dL Microbiology - Last 24 Hours (Table) 06/09/18 19:10 Urine Culture - Final Urine,Clean Catch Assessment and Plan Assessment: Reena Dowling is a 78 year old with dementia and recent ID complaining of vaginal bleeding and hematuria. She is unlikely a candidate for any definitive therapy at this time. An extensive conversation was had with both Reena and her son in regards to treatment goals. We intend to deliver 20 Gy in 5 fractions the first of which will be delivered today. She will receive RT on Saturday and Saturday. Continue q12 hr CBCs. She continues to be closely monitored by Dr. Mejia and Dr. Martinez. Time with Patient: Greater than 30
[2018-06-12 17:13] LABS: Glucose,Whole Blood 82 mg/dL (75-99)
[2018-06-12 18:53] LABS: Basophils % (A) 0 %; Eosinophils # (A) 0.2 k/uL (0-0.7); Eosinophils % (A) 2 %; HCT 21.6 % (34.0-46.0); HGB 7.1 gm/dL (11.4-16.0); Hypochromasia Slight; Lymphocytes # (A) 1.3 k/uL (1.0-4.8); Lymphocytes % (A) 17 %; MCH 30.7 pg (25.0-35.0); Mean Platelet Volume 6.5; Monocytes # (A) 0.4 k/uL (0-1.0); Monocytes % (A) 5 %; Neutrophils # (A) 5.7 k/uL (1.3-7.7); Neutrophils % (A) 75 %; Platelet Count 250 k/uL (150-450); RBC 2.32 m/uL (3.80-5.40); RDW 15.7 % (11.5-15.5); WBC 7.6 k/uL (3.8-10.6)
[2018-06-12 20:31] LABS: Glucose,Whole Blood 86 mg/dL (75-99)
[2018-06-12] MEDS ORDERED: INSULIN DETEMIR 100 UNIT/ML 10 ML VIAL SQ SCH (21:00)
[2018-06-12] MEDS: QUEtiapine 25 MG TAB PO SCH (21:00)
[2018-06-12] MEDS: PRAMIPEXOLE 0.125 MG TAB PO PRN (21:56)
[2018-06-13 03:58] LABS: Glucose,Whole Blood 108 mg/dL (75-99)
[2018-06-13 07:03] LABS: Glucose,Whole Blood 115 mg/dL (75-99)
[2018-06-13] MEDS: INSULIN ASPART 100 UNIT/ML 1 ML 10 ML VIAL SQ SCH ×4 (08:18→21:20)
[2018-06-13] MEDS: PANTOPRAZOLE 40 MG/10 ML VIAL IVP SCH (08:18)
[2018-06-13] MEDS: PRAVASTATIN SODIUM 40 MG TAB PO SCH (08:19)
[2018-06-13] MEDS: LEVOFLOXACIN 250 MG TAB PO SCH (08:19)
[2018-06-13] MEDS: SERTRALINE 50 MG TAB PO SCH (08:19)
[2018-06-13] MEDS: CLOPIDOGREL 75 MG TAB PO SCH (08:19)
[2018-06-13] MEDS: ATENOLOL 25 MG TAB PO SCH (08:19)
[2018-06-13] MEDS: MEMANTINE 10 MG TAB PO SCH ×2 (08:20→21:20)
[2018-06-13 08:29] LABS: Anisocytosis Slight; Basophils % (A) 0 %; Eosinophils # (A) 0.2 k/uL (0-0.7); Eosinophils % (A) 3 %; Hypochromasia Slight; Lymphocytes # (A) 1.3 k/uL (1.0-4.8); Lymphocytes % (A) 19 %; MCH 29.9 pg (25.0-35.0); MCHC 31.8 g/dL (31.0-37.0); MCV 94.2 fL (80.0-100.0); Mean Platelet Volume 6.6; Monocytes # (A) 0.4 k/uL (0-1.0); Monocytes % (A) 6 %; Neutrophils # (A) 4.7 k/uL (1.3-7.7); Neutrophils % (A) 71 %; Platelet Count 238 k/uL (150-450); RBC 2.07 m/uL (3.80-5.40); WBC 6.7 k/uL (3.8-10.6)
[2018-06-13 08:41] LABS: HCT 19.5 % (34.0-46.0); HGB 6.2 gm/dL (11.4-16.0)
[2018-06-13 08:45] LABS: Albumin 2.8 g/dL (3.5-5.0); Total Protein 5.3 g/dL (6.3-8.2)
[2018-06-13 08:46] LABS: Calcium 8.7 mg/dL (8.4-10.2); Potassium 3.9 mmol/L (3.5-5.1); Total Bilirubin 0.6 mg/dL (0.2-1.3)
[2018-06-13 11:05] LABS: Glucose,Whole Blood 166 mg/dL (75-99)
[2018-06-13] MEDS: ACETAMINOPHEN TAB 325 MG TAB PO PRN (12:09)
[2018-06-13] MEDS: LORazepam 2 MG/ML INJ IV PRN (13:06)
--- NOTE | 2018-06-13 13:08 | P.PN ---
Subjective his is a 78-year-old pleasant female patient of Dr. Joshua Roper and Dr. Martinez underlying history of dementia, diabetes mellitus type 2, hypertension, hyperlipidemia, who is currently a very poor historian. He was last admitted on 05/07 for a prolonged hospital course and was treated for acute inferior wall STEMI involving the RCA requiring drug-eluting stent, patient also underwent cystoscopy for hematuria ending up having exploratory laparotomy with closure of bladder laceration post cystoscopy with history of bladder cancer which is newly diagnosed and eventually need radiation, hypertensive vascular disease, dysthymia, neurocognitive deficits with memory loss secondary to dementia comes in with gross hematuria and nausea and vomiting with increased weakness for the past 3-4 days. On evaluation patient denies having nausea or vomiting but does complain of stomach upset. She is very drowsy and falls back to sleep. No known evaluation of the blood work done in the ER , patient had a hemoglobin of 8.1 and leukocytosis 15.2, creatinine 1.58, BUN [address] head was done which was negative for acute changes chest x-ray negative for any acute changes. Urinalysis suggestive of more than 182 RBCs and WBCs 154. Vital signs assessed in the ER temp 99, blood pressure 100/80, pulse is 78. She does have a catheter patient was admitted for acute UTI, dehydration and gastroenteritis. Urology consult placed 06/11 patient examined at bedside oriented 1. Talked to the son in length about patient's ongoing hematuria. Urine cultures are still pending him continue levofloxacin for now. Patient continues to have vaginal bleeding. Dr. Martinez is of air and is planning to talk to radiation oncology and see if radiation could be started sooner. CT abdomen and pelvis was obtained that suggested right-sided hydronephrosis with bladder mass for him to 2 cm on the posterior wall of urinary bladder no ureteral calculus seen on the right side field pulmonary infiltrate and atelectasis is seen with the per pleural effusion. Chest x-ray 2 view will be obtained. Patient also had an episode of agitation in the morning with jitteriness in her arms and legs. One dose of Ativan was given. Hemoglobin improved to 8 after transfusion 06/12 patient has some confusion this morning. Hemoglobin has dropped to 7.[address] Rueda is taking patient for radiation today since there is no improvement in the hematuria. Due to patient's underlying dementia and increasing confusion will initiate patient on Seroquel low dose at bedtime. QT interval is normal will repeat EKG to assess for QT prolongation. Nurses instructed to minimize the use of Ativan needed. 06/13 patient continue has some confusion/delirium since she requires Ativan for agitation. Hemoglobin dropped to 6.1 this morning status post 1 unit PRBC. Patient is receiving radiation due to today followed by radiation tomorrow. Continues to have vaginal bleeding with clots. Patient is oriented 1. Continue CBC checked every 12. Patient complains of increased shakiness in the lower extremities increased Mirapex 2.25. Patient slept well on Seroquel 12.50 continue while patient of Hospital plan is to finish radiation therapy on Saturday with possible rehab unless patient decompressed and states will consider comfort care. Patient is too confused to contribute to physical therapy right now ROS Constitutional: Denies chills, Denies fever, Denies lethargy, Denies malaise, Denies poor appetite, Denies weakness, Denies weight loss Eyes: denies decreased vision, denies diplopia, denies discharge, denies pain Ears: deny: decreased hearing Ears, nose, mouth and throat: Denies dental pain, Denies headache, Denies nasal discharge, Denies nose pain Cardiovascular: Denies chest pain, Denies decreased exercise tolerance, Denies edema, Denies high blood pressure, Denies irregular heart beat, Denies palpitations, Denies paroxysmal nocturnal dyspnea, Denies rapid heart beat, Denies shortness of breath Respiratory: Denies congestion, Denies cough, Denies cough with sputum, Denies dyspnea, Denies home oxygen, Denies wheezing Gastrointestinal: Denies abdominal pain, Denies change in bowel habits, Denies coffee ground emesis, Denies early satiety, Denies excessive gas, Denies heartburn, Denies hematemesis, Denies hematochezia, Denies loss of appetite, Denies nausea, Denies vomiting Genitourinary: Denies dysuria, Denies flank pain, Denies kidney stones, Denies menorrhagia, Denies urgency, Denies urinary frequency, hematuria Musculoskeletal: Denies gait dysfunction, Denies limitation of motion, Denies morning stiffness, Denies muscle cramps Integumentary: Denies rash, Denies wounds, Denies brittle nails, Denies change in hair/nails, Denies darkening of skin Neurological: confusion Denies balance difficulties, Denies change in speech, Denies double vision, Denies gait dysfunction, Denies loss of vision, Denies motor disturbance, Denies numbness, Denies paralysis, Denies paresthesias, Denies seizures Psychiatric: endorses anxiety, endorses shakiness of the lower extremity Denies depression Objective - Vital Signs Vital signs: Vital Signs Temp 98 F 06/13/18 11:08 Pulse 82 06/13/18 11:08 Resp 18 06/13/18 11:08 BP 125/80 06/13/18 11:08 Pulse Ox 100 06/13/18 11:08 Intake & Output 06/12/18 06/13/18 06/13/18 18:59 06:59 18:59 Intake Total 0 Output Total 1 1 Balance -1 -1 0 Weight 75 kg 75 kg Intake: Blood Product 0 Rc As-1 Unit 0 [id number] Output: Stool 1 1 Other: Voiding Method Diaper Diaper Diaper Incontinent Incontinent Incontinent # Voids 1 1 - Exam - Constitutional General appearance: cooperative, no acute distress, obese, O X1 - EENT Eyes: anicteric sclerae, PERRLA, normal appearance ENT: hearing grossly normal - Neck Neck: no lymphadenopathy, normal ROM, no other, no rigidity, no stridor, no thyromegaly - Respiratory Respiratory: bilateral: CTA, negative: diminished, dullness, rales, rhonchi - Cardiovascular Rhythm: regular Heart sounds: normal: S1, S2 Abnormal Heart Sounds: 2/ 5 systolic murmur, no diastolic murmur - Gastrointestinal General gastrointestinal: normal bowel sounds, soft non tender - Integumentary Integumentary: no rash - Neurologic Neurologic: CNII-XII intact - Musculoskeletal Musculoskeletal: gait n ot assesed strength equal bilaterally - Psychiatric Psychiatric: Confused &O x's 1, appropriate affect - Labs CBC & Chem 7: 06/13/18 07:54 06/13/18 07:54 Labs: Abnormal Lab Results - Last 24 Hours (Table) 06/10/18 06/12/18 06/13/18 Range/Units 12:20 18:00 03:56 RBC 2.32 L (3.80-5.40) m/uL Hgb 7.1 L (11.4-16.0) gm/dL Hct 21.6 L (34.0-46.0) % RDW 15.7 H (11.5-15.5) % Creatinine (0.52-1.04) mg/dL Glucose (74-99) mg/dL POC Glucose (mg/dL) 108 H (75-99) mg/dL Total Protein (6.3-8.2) g/dL Albumin (3.5-5.0) g/dL Crossmatch See Detail 06/13/18 06/13/18 06/13/18 Range/Units 07:00 07:54 07:54 RBC 2.07 L (3.80-5.40) m/uL Hgb 6.2 L* (11.4-16.0) gm/dL Hct 19.5 L* (34.0-46.0) % RDW 16.0 H (11.5-15.5) % Creatinine 1.23 H (0.52-1.04) mg/dL Glucose 104 H (74-99) mg/dL POC Glucose (mg/dL) 115 H (75-99) mg/dL Total Protein 5.3 L (6.3-8.2) g/dL Albumin 2.8 L (3.5-5.0) g/dL Crossmatch 06/13/18 Range/Units 11:03 RBC (3.80-5.40) m/uL Hgb (11.4-16.0) gm/dL Hct (34.0-46.0) % RDW (11.5-15.5) % Creatinine (0.52-1.04) mg/dL Glucose (74-99) mg/dL POC Glucose (mg/dL) 166 H (75-99) mg/dL Total Protein (6.3-8.2) g/dL Albumin (3.5-5.0) g/dL Crossmatch Assessment and Plan Plan: 1. Gross hematuria with vaginal bleeding with history of newly diagnosed Bladder cancer, [facility] is anticipating bladder surgery around May 2018, Dr. Roberts, urologist. Hemoglobin dropped to 6.2 today status post 1 unit PRBCs we will repeat him CBC in the evening. urology consult placed for possible cystoscopy. patient had Cystoscopy, evacuation of clot, transverse resection of bladder tumor, exploratory laparotomy with closure of bladder laceration in 2017. . CT abd with new hydronephrosis on the right . I and O monitoring . Radiation treatment completed yesterday with Dr. Rueda, plan to get 2 more radiation treatment 2. Acute inferior wall STEMI involving RCA requiring drug-eluting stent to 99% of stenosis down to 0% successful stenting, performed 05/06/2018 Dr. Marie patient currently is on Lipitor 80 mg daily, Tenormin 25 mg daily, Plavix 75 mg daily aspirin 81 mg daily 3. Acute on Chronic blood loss anemia hemoglobin is 9.0,hb reduced to 6.5 s/p 1 unit prbc 4. Acute UTI with hematuria. Levofloxacin initiated at 250mg IV daily. UC pending 5. Acute abdominal pain in the lower quadrant of the abdomen CT abdomen ordered with oral contrast no IV contrast needed to evaluate abdominal etiology. No diarrhea since patient's pain on the floor. 6. Neurocognitive deficits with memory loss, on Namenda 10 mg PAD, patient is not on any anticholinesterase medication. 7. Insomnia, schedule melatonin 6 mg at bedtime. 8. Hypertensive Vascular disease. Continue atenolol. 9. DVT prophylaxis, high risk known bladder cancer, with SCDs 10. Diabetes mellitus type 2 insulin requiring, uncontrolled with hypoglycemia. continue Lantus 35 units reduced from 55 units continue NovoLog scale, hemoglobin A1c is 7.0. 11. Acute kidney injury secondary to ATN/ dehydration secondary to hemodynamic instability with CKD stage III nephrotoxins will be avoided 12. Dysthymia, Zoloft 50 mg daily 13.Restless leg, on Mirapex 0.125 mg daily when necessary, iron studies to be obtained mite replacement 14. Metabolic encephalopathy with underlying dementia likely secondary to delirium from being in the hospital. Patient was also anemic and have her infection contributing to the encephalopathy. Seroquel initiated 12.5 mg daily at bedtime. Son informed of the side effect of Seroquel of sudden being on the medication and agrees on continuing it for now Discharge plan: PT ot evaluation
[2018-06-13] MEDS: PRAMIPEXOLE 0.25 MG TAB PO SCH (14:47)
[2018-06-13 17:47] LABS: Glucose,Whole Blood 156 mg/dL (75-99)
[2018-06-13] MEDS: ACETAMINOPHEN TAB 325 MG TAB PO SCH (17:48)
[2018-06-13 20:40] LABS: Glucose,Whole Blood 184 mg/dL (75-99)
[2018-06-13] MEDS: QUEtiapine 25 MG TAB PO SCH (21:21)
[2018-06-13 22:57] LABS: Anisocytosis Slight; Basophils % (A) 0 %; Eosinophils # (A) 0.2 k/uL (0-0.7); Eosinophils % (A) 3 %; Lymphocytes # (A) 1.3 k/uL (1.0-4.8); Lymphocytes % (A) 20 %; MCH 29.5 pg (25.0-35.0); MCHC 32.3 g/dL (31.0-37.0); MCV 91.4 fL (80.0-100.0); Monocytes # (A) 0.3 k/uL (0-1.0); Monocytes % (A) 5 %; Neutrophils # (A) 4.5 k/uL (1.3-7.7); Neutrophils % (A) 70 %; Platelet Count 202 k/uL (150-450); RDW 16.4 % (11.5-15.5); WBC 6.3 k/uL (3.8-10.6)
[2018-06-13 22:59] LABS: HGB 6.8 gm/dL (11.4-16.0)
[2018-06-14] MEDS: ACETAMINOPHEN TAB 325 MG TAB PO SCH ×4 (01:08→17:42)
[2018-06-14] MEDS: LORazepam 2 MG/ML INJ IV PRN (02:37)
[2018-06-14 07:20] LABS: Glucose,Whole Blood 142 mg/dL (75-99)
[2018-06-14] MEDS: INSULIN ASPART 100 UNIT/ML 1 ML 10 ML VIAL SQ SCH ×4 (07:50→20:56)
[2018-06-14] MEDS: PANTOPRAZOLE 40 MG TABLET PO SCH (07:52)
[2018-06-14] MEDS: ATENOLOL 25 MG TAB PO SCH (07:52)
[2018-06-14] MEDS: CLOPIDOGREL 75 MG TAB PO SCH (07:52)
[2018-06-14 07:53] LABS: Basophils % (A) 0 %; Eosinophils # (A) 0.1 k/uL (0-0.7); Eosinophils % (A) 2 %; HCT 24.6 % (34.0-46.0); HGB 8.2 gm/dL (11.4-16.0); Lymphocytes # (A) 1.2 k/uL (1.0-4.8); Lymphocytes % (A) 13 %; MCH 30.4 pg (25.0-35.0); MCHC 33.3 g/dL (31.0-37.0); MCV 91.2 fL (80.0-100.0); Mean Platelet Volume 6.9; Monocytes # (A) 0.4 k/uL (0-1.0); Monocytes % (A) 4 %; Neutrophils # (A) 7.3 k/uL (1.3-7.7); Neutrophils % (A) 80 %; Platelet Count 209 k/uL (150-450); RBC 2.69 m/uL (3.80-5.40); WBC 9.1 k/uL (3.8-10.6)
[2018-06-14] MEDS: MEMANTINE 10 MG TAB PO SCH ×2 (07:53→20:56)
[2018-06-14] MEDS: LEVOFLOXACIN 250 MG TAB PO SCH (07:54)
[2018-06-14] MEDS: PRAVASTATIN SODIUM 40 MG TAB PO SCH (07:54)
[2018-06-14] MEDS: PRAMIPEXOLE 0.25 MG TAB PO SCH (07:54)
[2018-06-14] MEDS: SERTRALINE 50 MG TAB PO SCH (07:54)
--- NOTE | 2018-06-14 08:50 | P.PN ---
Subjective Progress Note Date: 06/14/18 This is a 78-year-old pleasant female patient of Dr. Joshua Roper and Dr. Martinez underlying history of dementia, diabetes mellitus type 2, hypertension, hyperlipidemia, who is currently a very poor historian. He was last admitted on 05/07 for a prolonged hospital course and was treated for acute inferior wall STEMI involving the RCA requiring drug-eluting stent, patient also underwent cystoscopy for hematuria ending up having exploratory laparotomy with closure of bladder laceration post cystoscopy with history of bladder cancer which is newly diagnosed and eventually need radiation, hypertensive vascular disease, dysthymia, neurocognitive deficits with memory loss secondary to dementia comes in with gross hematuria and nausea and vomiting with increased weakness for the past 3-4 days. On evaluation patient denies having nausea or vomiting but does complain of stomach upset. She is very drowsy and falls back to sleep. No known evaluation of the blood work done in the ER , patient had a hemoglobin of 8.1 and leukocytosis 15.2, creatinine 1.58, BUN [address] head was done which was negative for acute changes chest x-ray negative for any acute changes. Urinalysis suggestive of more than 182 RBCs and WBCs 154. Vital signs assessed in the ER temp 99, blood pressure 100/80, pulse is 78. She does have a catheter patient was admitted for acute UTI, dehydration and gastroenteritis. Urology consult placed 06/11 patient examined at bedside oriented 1. Talked to the son in length about patient's ongoing hematuria. Urine cultures are still pending him continue levofloxacin for now. Patient continues to have vaginal bleeding. Dr. Martinez is of air and is planning to talk to radiation oncology and see if radiation could be started sooner. CT abdomen and pelvis was obtained that suggested right-sided hydronephrosis with bladder mass for him to 2 cm on the posterior wall of urinary bladder no ureteral calculus seen on the right side field pulmonary infiltrate and atelectasis is seen with the per pleural effusion. Chest x-ray 2 view will be obtained. Patient also had an episode of agitation in the morning with jitteriness in her arms and legs. One dose of Ativan was given. Hemoglobin improved to 8 after transfusion 06/12 patient has some confusion this morning. Hemoglobin has dropped to 7.[address] Rueda is taking patient for radiation today since there is no improvement in the hematuria. Due to patient's underlying dementia and increasing confusion will initiate patient on Seroquel low dose at bedtime. QT interval is normal will repeat EKG to assess for QT prolongation. Nurses instructed to minimize the use of Ativan needed. 06/13 patient continue has some confusion/delirium since she requires Ativan for agitation. Hemoglobin dropped to 6.1 this morning status post 1 unit PRBC. Patient is receiving radiation due to today followed by radiation tomorrow. Continues to have vaginal bleeding with clots. Patient is oriented 1. Continue CBC checked every 12. Patient complains of increased shakiness in the lower extremities increased Mirapex 2.25. Patient slept well on Seroquel 12.50 continue while patient of Hospital plan is to finish radiation therapy on Saturday with possible rehab unless patient decompressed and states will consider comfort care. Patient is too confused to contribute to physical therapy right now 06/14: Patient is resting in bed. Still having some confusion. Patient did pull out her IV early this morning by bringing her arm against the side. A new IV has been initiated. Her hemoglobin is at 8.2 at this time 1 unit of packed her blood cells given. Patient states that she had slept well last night she does want to get up on her own. Patient continues to be confused able to answer some questions appropriately. She is scheduled for radiation therapy today. ROS Constitutional: Denies chills, Denies fever, Denies lethargy, Denies malaise, Denies poor appetite, Denies weakness, Denies weight loss Eyes: denies decreased vision, denies diplopia, denies discharge, denies pain Ears: decreased hearing Ears, nose, mouth and throat: Denies dental pain, Denies headache, Denies nasal discharge, Denies nose pain Cardiovascular: Denies chest pain, Denies decreased exercise tolerance, Denies edema, Denies high blood pressure, Denies irregular heart beat, Denies palpitations, Denies paroxysmal nocturnal dyspnea, Denies rapid heart beat, Denies shortness of breath Respiratory: Denies congestion, Denies cough, Denies cough with sputum, Denies dyspnea, Denies home oxygen, Denies wheezing Gastrointestinal: Denies abdominal pain, Denies change in bowel habits, Denies coffee ground emesis, Denies early satiety, Denies excessive gas, Denies heartburn, Denies hematemesis, Denies hematochezia, Denies loss of appetite, Denies nausea, Denies vomiting Genitourinary: Reports hematuria and vaginal bleeding, Denies dysuria, Denies flank pain, Denies kidney stones, Denies menorrhagia, Denies urgency, Denies urinary frequency Musculoskeletal: Denies gait dysfunction, Denies limitation of motion, Denies morning stiffness, Denies muscle cramps Integumentary: Denies rash, Denies wounds, Denies brittle nails, Denies change in hair/nails, Denies darkening of skin Neurological: Reports confusion, Denies balance difficulties, Denies change in speech, Denies double vision, Denies gait dysfunction, Denies loss of vision, Denies motor disturbance, Denies numbness, Denies paralysis, Denies paresthesias , Denies seizures Psychiatric: Denies anxiety, denies shakiness of the lower extremity Denies depression Objective - Vital Signs Vital signs: Vital Signs Temp 97.6 F 06/14/18 06:29 Pulse 88 06/14/18 05:00 Resp 16 06/14/18 06:29 BP 124/52 06/14/18 06:29 Pulse Ox 98 06/14/18 05:00 Intake & Output 06/13/18 06/14/18 06/14/18 18:59 06:59 18:59 Intake Total 620 310 Balance 620 310 Weight 75 kg 75 kg Intake: Blood Product 620 310 As-1 Unit 310 [id number] Rc As-1 Unit 310 [id number] Other: Voiding Method Diaper Diaper Incontinent Incontinent # Voids 3 3 - Constitutional General appearance: Present: average body habitus, cooperative, obese - EENT Eyes: Present: EOMI, PERRLA ENT: Present: hearing grossly normal, NA/AT - Neck Neck: Present: normal ROM. Absent: rigidity, stridor - Respiratory Respiratory: bilateral: CTA, negative: diminished, dullness, rales, rhonchi, wheezing, prolonged expiration, prolonged inspiration - Cardiovascular Rhythm: regular Heart sounds: normal: S1, S2 Abnormal Heart Sounds: Absent: systolic murmur, diastolic murmur, rub, S3 Gallop , S4 Gallop, click, other - Gastrointestinal General gastrointestinal: Present: normal bowel sounds. Absent: organomegaly, splenomegaly, tenderness - Integumentary Integumentary: Present: decreased turgor, pale - Neurologic Neurologic: Present: CNII-XII intact - Musculoskeletal Musculoskeletal: Present: generalized weakness - Psychiatric Psychiatric Comment(s): Alert and oriented to self, able to answer minimal questions appropriately. Psychiatric: Absent: intact judgment & insight - Labs CBC & Chem 7: 06/14/18 07:32 06/13/18 07:54 Labs: Abnormal Lab Results - Last 24 Hours (Table) 06/10/18 06/13/18 06/13/18 Range/Units 12:20 11:03 17:35 RBC (3.80-5.40) m/uL Hgb (11.4-16.0) gm/dL Hct (34.0-46.0) % RDW (11.5-15.5) % POC Glucose (mg/dL) 166 H 156 H (75-99) mg/dL Crossmatch See Detail 06/13/18 06/13/18 06/14/18 Range/Units 20:21 22:38 01:49 RBC 2.30 L (3.80-5.40) m/uL Hgb 6.8 L* (11.4-16.0) gm/dL Hct 21.0 L (34.0-46.0) % RDW 16.4 H (11.5-15.5) % POC Glucose (mg/dL) 184 H (75-99) mg/dL Crossmatch See Detail 06/14/18 06/14/18 Range/Units 07:18 07:32 RBC 2.69 L (3.80-5.40) m/uL Hgb 8.2 L (11.4-16.0) gm/dL Hct 24.6 L (34.0-46.0) % RDW 16.0 H (11.5-15.5) % POC Glucose (mg/dL) 142 H (75-99) mg/dL Crossmatch Assessment and Plan Plan: 1. Gross hematuria with vaginal bleeding with history of newly diagnosed Bladder cancer, [facility] is anticipating bladder surgery around May 2018, Dr. Roberts, urologist. Hemoglobin dropped to 6.2 today status post 1 unit PRBCs we will repeat him CBC in the evening. urology consult placed for possible cystoscopy. patient had Cystoscopy, evacuation of clot, transverse resection of bladder tumor, exploratory laparotomy with closure of bladder laceration in 2017. . CT abd with new hydronephrosis on the right . I and O monitoring . Radiation treatment completed yesterday additional treatment plan for today around . 2. Acute inferior wall STEMI involving RCA requiring drug-eluting stent to 99% of stenosis down to 0% successful stenting, performed 05/06/2018 Dr. Marie patient currently is on Lipitor 80 mg daily, Tenormin 25 mg daily, Plavix 75 mg daily aspirin 81 mg daily 3. Acute on Chronic blood loss anemia hemoglobin is 9.0,hb reduced to 6.5 s/p 1 unit prbc, hemoglobin 8.2 we'll hold any additional units of PRBC. 4. Acute UTI with hematuria. Levofloxacin initiated at 250mg IV daily. UC pending 5. Acute abdominal pain in the lower quadrant of the abdomen CT abdomen ordered with oral contrast no IV contrast needed to evaluate abdominal etiology. No diarrhea since patient's pain on the floor. 6. Neurocognitive deficits with memory loss, on Namenda 10 mg PAD, patient is not on any anticholinesterase medication. 7. Insomnia, schedule melatonin 6 mg at bedtime. 8. Hypertensive Vascular disease. Continue atenolol. 9. DVT prophylaxis, high risk known bladder cancer, with SCDs 10. Diabetes mellitus type 2 insulin requiring, uncontrolled with hypoglycemia. continue Lantus 35 units reduced from 55 units continue NovoLog scale, hemoglobin A1c is 7.0. 11. Acute kidney injury secondary to ATN/ dehydration secondary to hemodynamic instability with CKD stage III nephrotoxins will be avoided 12. Dysthymia, Zoloft 50 mg daily 13.Restless leg, on Mirapex 0. 25 mg daily when necessary, increase has helped with lower leg shaking. 14. Metabolic encephalopathy with underlying dementia likely secondary to delirium from being in the hospital. Patient was also anemic and have her infection contributing to the encephalopathy. Seroquel initiated 12.5 mg daily at bedtime. Son informed of the side effect of Seroquel of sudden being on the medication and agrees on continuing it for now Discharge plan: PT ot evaluation Impression and plan of care have been directed as dictated by the signing physician. Edelmira Zee nurse practitioner acting as scribe for signing physician.
[2018-06-14 11:15] LABS: Glucose,Whole Blood 186 mg/dL (75-99)
[2018-06-14 12:48] LABS: Glucose,Whole Blood 180 mg/dL (75-99)
[2018-06-14 17:55] LABS: Glucose,Whole Blood 180 mg/dL (75-99)
[2018-06-14 20:34] LABS: Glucose,Whole Blood 194 mg/dL (75-99)
[2018-06-14] MEDS: QUEtiapine 25 MG TAB PO SCH (20:56)
[2018-06-14 23:48] LABS: Anisocytosis Slight; HCT 20.2 % (34.0-46.0); MCH 30.5 pg (25.0-35.0); MCHC 33.5 g/dL (31.0-37.0); MCV 91.3 fL (80.0-100.0); Mean Platelet Volume 6.7; Platelet Count 180 k/uL (150-450); Poikilocytosis Slight; RBC 2.22 m/uL (3.80-5.40); RDW 16.4 % (11.5-15.5); WBC 6.8 k/uL (3.8-10.6)
[2018-06-15 00:07] LABS: HGB 6.8 gm/dL (11.4-16.0)
[2018-06-15] MEDS: ACETAMINOPHEN TAB 325 MG TAB PO SCH ×5 (00:39→23:00)
[2018-06-15 07:08] LABS: Glucose,Whole Blood 136 mg/dL (75-99)
[2018-06-15] MEDS: INSULIN ASPART 100 UNIT/ML 1 ML 10 ML VIAL SQ SCH ×4 (08:03→20:18)
[2018-06-15] MEDS: CLOPIDOGREL 75 MG TAB PO SCH (08:03)
[2018-06-15] MEDS: PANTOPRAZOLE 40 MG TABLET PO SCH (08:03)
[2018-06-15] MEDS: ATENOLOL 25 MG TAB PO SCH (08:03)
[2018-06-15] MEDS: MEMANTINE 10 MG TAB PO SCH ×2 (08:03→20:16)
[2018-06-15] MEDS: PRAVASTATIN SODIUM 40 MG TAB PO SCH (08:04)
[2018-06-15] MEDS: LEVOFLOXACIN 250 MG TAB PO SCH (08:04)
[2018-06-15] MEDS: PRAMIPEXOLE 0.25 MG TAB PO SCH (08:04)
[2018-06-15] MEDS: SERTRALINE 50 MG TAB PO SCH (08:04)
[2018-06-15 10:07] LABS: Anisocytosis Slight; Basophils % (A) 0 %; Eosinophils # (A) 0.2 k/uL (0-0.7); Eosinophils % (A) 2 %; Lymphocytes # (A) 0.8 k/uL (1.0-4.8); Lymphocytes % (A) 8 %; MCH 30.7 pg (25.0-35.0); MCHC 33.9 g/dL (31.0-37.0); MCV 90.4 fL (80.0-100.0); Mean Platelet Volume 6.9; Monocytes # (A) 0.4 k/uL (0-1.0); Monocytes % (A) 4 %; Neutrophils # (A) 8.4 k/uL (1.3-7.7); Neutrophils % (A) 84 %; Platelet Count 211 k/uL (150-450); Poikilocytosis Slight; RBC 2.88 m/uL (3.80-5.40); RDW 16.1 % (11.5-15.5)
[2018-06-15 10:19] LABS: HGB 8.8 gm/dL (11.4-16.0)
[2018-06-15 11:29] LABS: Glucose,Whole Blood 204 mg/dL (75-99)
--- NOTE | 2018-06-15 12:27 | P.PN ---
Subjective Progress Note Date: 06/15/18 This is a 78-year-old pleasant female patient of Dr. Joshua Roper and Dr. Martinez underlying history of dementia, diabetes mellitus type 2, hypertension, hyperlipidemia, who is currently a very poor historian. He was last admitted on 05/07 for a prolonged hospital course and was treated for acute inferior wall STEMI involving the RCA requiring drug-eluting stent, patient also underwent cystoscopy for hematuria ending up having exploratory laparotomy with closure of bladder laceration post cystoscopy with history of bladder cancer which is newly diagnosed and eventually need radiation, hypertensive vascular disease, dysthymia, neurocognitive deficits with memory loss secondary to dementia comes in with gross hematuria and nausea and vomiting with increased weakness for the past 3-4 days. On evaluation patient denies having nausea or vomiting but does complain of stomach upset. She is very drowsy and falls back to sleep. No known evaluation of the blood work done in the ER , patient had a hemoglobin of 8.1 and leukocytosis 15.2, creatinine 1.58, BUN [address] head was done which was negative for acute changes chest x-ray negative for any acute changes. Urinalysis suggestive of more than 182 RBCs and WBCs 154. Vital signs assessed in the ER temp 99, blood pressure 100/80, pulse is 78. She does have a catheter patient was admitted for acute UTI, dehydration and gastroenteritis. Urology consult placed 06/11 patient examined at bedside oriented 1. Talked to the son in length about patient's ongoing hematuria. Urine cultures are still pending him continue levofloxacin for now. Patient continues to have vaginal bleeding. Dr. Martinez is of air and is planning to talk to radiation oncology and see if radiation could be started sooner. CT abdomen and pelvis was obtained that suggested right-sided hydronephrosis with bladder mass for him to 2 cm on the posterior wall of urinary bladder no ureteral calculus seen on the right side field pulmonary infiltrate and atelectasis is seen with the per pleural effusion. Chest x-ray 2 view will be obtained. Patient also had an episode of agitation in the morning with jitteriness in her arms and legs. One dose of Ativan was given. Hemoglobin improved to 8 after transfusion 06/12 patient has some confusion this morning. Hemoglobin has dropped to 7.[address] Rueda is taking patient for radiation today since there is no improvement in the hematuria. Due to patient's underlying dementia and increasing confusion will initiate patient on Seroquel low dose at bedtime. QT interval is normal will repeat EKG to assess for QT prolongation. Nurses instructed to minimize the use of Ativan needed. 06/13 patient continue has some confusion/delirium since she requires Ativan for agitation. Hemoglobin dropped to 6.1 this morning status post 1 unit PRBC. Patient is receiving radiation due to today followed by radiation tomorrow. Continues to have vaginal bleeding with clots. Patient is oriented 1. Continue CBC checked every 12. Patient complains of increased shakiness in the lower extremities increased Mirapex 2.25. Patient slept well on Seroquel 12.50 continue while patient of Hospital plan is to finish radiation therapy on Saturday with possible rehab unless patient decompressed and states will consider comfort care. Patient is too confused to contribute to physical therapy right now 06/14: Patient is resting in bed. Still having some confusion. Patient did pull out her IV early this morning by bringing her arm against the side. A new IV has been initiated. Her hemoglobin is at 8.2 at this time 1 unit of packed her blood cells given. Patient states that she had slept well last night she does want to get up on her own. Patient continues to be confused able to answer some questions appropriately. She is scheduled for radiation therapy today. 06/15: Patient is sitting up in a chair today. She still has some confusion able to answer some questions appropriately. Patient continues to have hematuria and vaginal bleeding. She was transfused in the night hemoglobin was 6.8. We will continue to monitor CBCs every 12 hours. Patient is scheduled for radiation therapy again on Saturday. She has completed her yesterday therapy without any complaints. ROS Constitutional: Denies chills, Denies fever, Denies lethargy, Denies malaise, Denies poor appetite, Denies weakness, Denies weight loss Eyes: denies decreased vision, denies diplopia, denies discharge, denies pain Ears: decreased hearing Ears, nose, mouth and throat: Denies dental pain, Denies headache, Denies nasal discharge, Denies nose pain Cardiovascular: Denies chest pain, Denies decreased exercise tolerance, Denies edema, Denies high blood pressure, Denies irregular heart beat, Denies palpitations, Denies paroxysmal nocturnal dyspnea, Denies rapid heart beat, Denies shortness of breath Respiratory: Denies congestion, Denies cough, Denies cough with sputum, Denies dyspnea, Denies home oxygen, Denies wheezing Gastrointestinal: Denies abdominal pain, Denies change in bowel habits, Denies coffee ground emesis, Denies early satiety, Denies excessive gas, Denies heartburn, Denies hematemesis, Denies hematochezia, Denies loss of appetite, Denies nausea, Denies vomiting Genitourinary: Reports hematuria and vaginal bleeding, Denies dysuria, Denies flank pain, Denies kidney stones, Denies menorrhagia, Denies urgency, Denies urinary frequency Musculoskeletal: Denies gait dysfunction, Denies limitation of motion, Denies morning stiffness, Denies muscle cramps Integumentary: Denies rash, Denies wounds, Denies brittle nails, Denies change in hair/nails, Denies darkening of skin Neurological: Reports confusion, Denies balance difficulties, Denies change in speech, Denies double vision, Denies gait dysfunction, Denies loss of vision, Denies motor disturbance, Denies numbness, Denies paralysis, Denies paresthesias , Denies seizures Psychiatric: Denies anxiety, denies shakiness of the lower extremity Denies depression Objective - Vital Signs Vital signs: Vital Signs Temp 97.7 F 06/15/18 12:15 Pulse 99 06/15/18 12:15 Resp 18 06/15/18 12:15 BP 137/73 06/15/18 12:15 Pulse Ox 97 06/15/18 12:15 Intake & Output 06/14/18 06/15/18 06/15/18 18:59 06:59 18:59 Intake Total 600 310 Output Total 2 Balance 600 308 Weight 75 kg Intake: Oral 600 Blood Product 310 As-3 Unit 310 [id number] Output: Stool 2 Other: Voiding Method Bedpan Bedpan Bedpan Diaper Diaper Diaper Incontinent Incontinent Incontinent # Voids 4 4 - Constitutional General appearance: Present: cooperative, no acute distress, obese - EENT Eyes: Present: anicteric sclerae, EOMI, PERRLA ENT: Present: hearing grossly normal, NA/AT - Neck Neck: Present: normal ROM. Absent: lymphadenopathy, rigidity - Respiratory Respiratory: bilateral: CTA, negative: diminished, dullness, rales, rhonchi, wheezing, prolonged expiration, prolonged inspiration, other - Cardiovascular Rhythm: regular Heart sounds: normal: S1, S2 Abnormal Heart Sounds: Absent: systolic murmur, diastolic murmur, rub, S3 Gallop , S4 Gallop, click, other - Gastrointestinal General gastrointestinal: Present: normal bowel sounds, soft. Absent: organomegaly, tenderness - Integumentary Integumentary: Present: pale - Musculoskeletal Musculoskeletal: Present: generalized weakness - Psychiatric Psychiatric Comment(s): Alert only to self. Able to answer minimal questions appropriately. - Labs CBC & Chem 7: 06/15/18 09:40 06/13/18 07:54 Labs: Abnormal Lab Results - Last 24 Hours (Table) 06/14/18 06/14/18 06/14/18 Range/Units 01:49 12:46 17:43 RBC (3.80-5.40) m/uL Hgb (11.4-16.0) gm/dL Hct (34.0-46.0) % RDW (11.5-15.5) % Neutrophils # (1.3-7.7) k/uL Lymphocytes # (1.0-4.8) k/uL POC Glucose (mg/dL) 180 H 180 H (75-99) mg/dL Crossmatch See Detail 06/14/18 06/14/18 06/15/18 Range/Units 20:30 23:36 07:06 RBC 2.22 L (3.80-5.40) m/uL Hgb 6.8 L* (11.4-16.0) gm/dL Hct 20.2 L (34.0-46.0) % RDW 16.4 H (11.5-15.5) % Neutrophils # (1.3-7.7) k/uL Lymphocytes # (1.0-4.8) k/uL POC Glucose (mg/dL) 194 H 136 H (75-99) mg/dL Crossmatch 06/15/18 06/15/18 Range/Units 09:40 11:20 RBC 2.88 L (3.80-5.40) m/uL Hgb 8.8 L D (11.4-16.0) gm/dL Hct 26.0 L (34.0-46.0) % RDW 16.1 H (11.5-15.5) % Neutrophils # 8.4 H (1.3-7.7) k/uL Lymphocytes # 0.8 L (1.0-4.8) k/uL POC Glucose (mg/dL) 204 H (75-99) mg/dL Crossmatch Assessment and Plan Plan: 1. Gross hematuria with vaginal bleeding with history of newly diagnosed Bladder cancer, [facility] is anticipating bladder surgery around May 2018, Dr. Roberts, urologist. Hemoglobin dropped to 6.2 today status post 1 unit PRBCs we will repeat him CBC in the evening. urology consult placed for possible cystoscopy. patient had Cystoscopy, evacuation of clot, transverse resection of bladder tumor, exploratory laparotomy with closure of bladder laceration in 2017. . CT abd with new hydronephrosis on the right . I and O monitoring . Radiation treatment completed yesterday additional treatment plan for Saturday. 2. Acute inferior wall STEMI involving RCA requiring drug-eluting stent to 99% of stenosis down to 0% successful stenting, performed 05/06/2018 Dr. Marie patient currently is on Lipitor 80 mg daily, Tenormin 25 mg daily, Plavix 75 mg daily aspirin 81 mg daily 3. Acute on Chronic blood loss anemia hemoglobin is 8.2, reduced to 6.81 unit of packed red blood cells transfused overnight. We'll continue to monitor hemoglobins every 12 hours. Transfused when the hemoglobin is less than 7. 4. Acute UTI with hematuria. Levofloxacin initiated at 250mg IV daily. UC pending 5. Acute abdominal pain in the lower quadrant of the abdomen CT abdomen ordered with oral contrast no IV contrast needed to evaluate abdominal etiology. No diarrhea since patient's pain on the floor. 6. Neurocognitive deficits with memory loss, on Namenda 10 mg PAD, patient is not on any anticholinesterase medication. 7. Insomnia, schedule melatonin 6 mg at bedtime. 8. Hypertensive Vascular disease. Continue atenolol. 9. DVT prophylaxis, high risk known bladder cancer, with SCDs 10. Diabetes mellitus type 2 insulin requiring, uncontrolled with hypoglycemia. continue Lantus 35 units reduced from 55 units continue NovoLog scale, hemoglobin A1c is 7.0. 11. Acute kidney injury secondary to ATN/ dehydration secondary to hemodynamic instability with CKD stage III nephrotoxins will be avoided 12. Dysthymia, Zoloft 50 mg daily 13.Restless leg, on Mirapex 0. 25 mg daily when necessary, increase has helped with lower leg shaking. 14. Metabolic encephalopathy with underlying dementia likely secondary to delirium from being in the hospital. Patient was also anemic and have her infection contributing to the encephalopathy. Seroquel initiated 12.5 mg daily at bedtime. Son informed of the side effect of Seroquel of sudden being on the medication and agrees on continuing it for now Discharge plan: PT ot evaluation Impression and plan of care have been directed as dictated by the signing physician. Edelmira Zee nurse practitioner acting as scribe for signing physician.
[2018-06-15 17:03] LABS: Glucose,Whole Blood 176 mg/dL (75-99)
[2018-06-15 20:12] LABS: Glucose,Whole Blood 216 mg/dL (75-99)
[2018-06-15] MEDS: QUEtiapine 25 MG TAB PO SCH (20:16)
[2018-06-15 21:58] LABS: Anisocytosis Slight; Basophils % (A) 0 %; Eosinophils # (A) 0.2 k/uL (0-0.7); Eosinophils % (A) 3 %; HCT 23.4 % (34.0-46.0); HGB 7.8 gm/dL (11.4-16.0); Lymphocytes # (A) 1.1 k/uL (1.0-4.8); Lymphocytes % (A) 15 %; MCH 30.5 pg (25.0-35.0); MCHC 33.4 g/dL (31.0-37.0); MCV 91.3 fL (80.0-100.0); Mean Platelet Volume 6.7; Monocytes # (A) 0.4 k/uL (0-1.0); Monocytes % (A) 6 %; Neutrophils # (A) 5.8 k/uL (1.3-7.7); Neutrophils % (A) 75 %; Platelet Count 205 k/uL (150-450); Poikilocytosis Slight; RBC 2.56 m/uL (3.80-5.40); RDW 16.3 % (11.5-15.5); WBC 7.8 k/uL (3.8-10.6)
[2018-06-16] MEDS: ACETAMINOPHEN TAB 325 MG TAB PO SCH ×3 (05:52→18:05)
[2018-06-16 07:02] LABS: Glucose,Whole Blood 141 mg/dL (75-99)
[2018-06-16 08:16] LABS: Anisocytosis Slight; Basophils % (A) 0 %; Eosinophils # (A) 0.2 k/uL (0-0.7); Eosinophils % (A) 2 %; HCT 20.9 % (34.0-46.0); Lymphocytes # (A) 0.8 k/uL (1.0-4.8); Lymphocytes % (A) 11 %; MCHC 33.7 g/dL (31.0-37.0); MCV 92.2 fL (80.0-100.0); Mean Platelet Volume 6.2; Monocytes # (A) 0.3 k/uL (0-1.0); Monocytes % (A) 4 %; Neutrophils # (A) 6.1 k/uL (1.3-7.7); Neutrophils % (A) 81 %; Platelet Count 192 k/uL (150-450); Poikilocytosis Slight; RBC 2.27 m/uL (3.80-5.40); RDW 16.5 % (11.5-15.5); WBC 7.6 k/uL (3.8-10.6)
[2018-06-16] MEDS: MEMANTINE 10 MG TAB PO SCH ×2 (08:41→20:27)
[2018-06-16] MEDS: INSULIN ASPART 100 UNIT/ML 1 ML 10 ML VIAL SQ SCH ×4 (08:41→20:27)
[2018-06-16] MEDS: PRAVASTATIN SODIUM 40 MG TAB PO SCH (08:41)
[2018-06-16] MEDS: PANTOPRAZOLE 40 MG TABLET PO SCH (08:41)
[2018-06-16] MEDS: LEVOFLOXACIN 250 MG TAB PO SCH (08:41)
[2018-06-16] MEDS: PRAMIPEXOLE 0.25 MG TAB PO SCH (08:41)
[2018-06-16] MEDS: ATENOLOL 25 MG TAB PO SCH (08:41)
[2018-06-16] MEDS: CLOPIDOGREL 75 MG TAB PO SCH (08:41)
[2018-06-16] MEDS: SERTRALINE 50 MG TAB PO SCH (08:42)
--- NOTE | 2018-06-16 11:22 | P.PN ---
Subjective Progress Note Date: 06/16/18 This is a 78-year-old pleasant female patient of Dr. Joshua Roper and Dr. Martinez underlying history of dementia, diabetes mellitus type 2, hypertension, hyperlipidemia, who is currently a very poor historian. He was last admitted on 05/07 for a prolonged hospital course and was treated for acute inferior wall STEMI involving the RCA requiring drug-eluting stent, patient also underwent cystoscopy for hematuria ending up having exploratory laparotomy with closure of bladder laceration post cystoscopy with history of bladder cancer which is newly diagnosed and eventually need radiation, hypertensive vascular disease, dysthymia, neurocognitive deficits with memory loss secondary to dementia comes in with gross hematuria and nausea and vomiting with increased weakness for the past 3-4 days. On evaluation patient denies having nausea or vomiting but does complain of stomach upset. She is very drowsy and falls back to sleep. No known evaluation of the blood work done in the ER , patient had a hemoglobin of 8.1 and leukocytosis 15.2, creatinine 1.58, BUN [address] head was done which was negative for acute changes chest x-ray negative for any acute changes. Urinalysis suggestive of more than 182 RBCs and WBCs 154. Vital signs assessed in the ER temp 99, blood pressure 100/80, pulse is 78. She does have a catheter patient was admitted for acute UTI, dehydration and gastroenteritis. Urology consult placed 06/11 patient examined at bedside oriented 1. Talked to the son in length about patient's ongoing hematuria. Urine cultures are still pending him continue levofloxacin for now. Patient continues to have vaginal bleeding. Dr. Martinez is of air and is planning to talk to radiation oncology and see if radiation could be started sooner. CT abdomen and pelvis was obtained that suggested right-sided hydronephrosis with bladder mass for him to 2 cm on the posterior wall of urinary bladder no ureteral calculus seen on the right side field pulmonary infiltrate and atelectasis is seen with the per pleural effusion. Chest x-ray 2 view will be obtained. Patient also had an episode of agitation in the morning with jitteriness in her arms and legs. One dose of Ativan was given. Hemoglobin improved to 8 after transfusion 06/12 patient has some confusion this morning. Hemoglobin has dropped to 7.[address] Rueda is taking patient for radiation today since there is no improvement in the hematuria. Due to patient's underlying dementia and increasing confusion will initiate patient on Seroquel low dose at bedtime. QT interval is normal will repeat EKG to assess for QT prolongation. Nurses instructed to minimize the use of Ativan needed. 06/13 patient continue has some confusion/delirium since she requires Ativan for agitation. Hemoglobin dropped to 6.1 this morning status post 1 unit PRBC. Patient is receiving radiation due to today followed by radiation tomorrow. Continues to have vaginal bleeding with clots. Patient is oriented 1. Continue CBC checked every 12. Patient complains of increased shakiness in the lower extremities increased Mirapex 2.25. Patient slept well on Seroquel 12.50 continue while patient of Hospital plan is to finish radiation therapy on Saturday with possible rehab unless patient decompressed and states will consider comfort care. Patient is too confused to contribute to physical therapy right now 06/14: Patient is resting in bed. Still having some confusion. Patient did pull out her IV early this morning by bringing her arm against the side. A new IV has been initiated. Her hemoglobin is at 8.2 at this time 1 unit of packed her blood cells given. Patient states that she had slept well last night she does want to get up on her own. Patient continues to be confused able to answer some questions appropriately. She is scheduled for radiation therapy today. 06/15: Patient is sitting up in a chair today. She still has some confusion able to answer some questions appropriately. Patient continues to have hematuria and vaginal bleeding. She was transfused in the night hemoglobin was 6.8. We will continue to monitor CBCs every 12 hours. Patient is scheduled for radiation therapy again on Saturday. She has completed her yesterday therapy without any complaints. 06/16: Patient is sitting up in a chair. Patient seems to have less confusion today able to answer questions appropriately. Patient knows where she is today compared to yesterday. However she still has some bouts of confusion during interview. Hemoglobin this morning was 7.0 we will continue to monitor. Patient denies any complaints at this time no chest pain, difficulty breathing, fever, or lightheadedness. Patient continues to have hematuria and vaginal bleeding. ROS Constitutional: Denies chills, Denies fever, Denies lethargy, Denies malaise, Denies poor appetite, Denies weakness, Denies weight loss Eyes: denies decreased vision, denies diplopia, denies discharge, denies pain Ears: decreased hearing Ears, nose, mouth and throat: Denies dental pain, Denies headache, Denies nasal discharge, Denies nose pain Cardiovascular: Denies chest pain, Denies decreased exercise tolerance, Denies edema, Denies high blood pressure, Denies irregular heart beat, Denies palpitations, Denies paroxysmal nocturnal dyspnea, Denies rapid heart beat, Denies shortness of breath Respiratory: Denies congestion, Denies cough, Denies cough with sputum, Denies dyspnea, Denies home oxygen, Denies wheezing Gastrointestinal: Denies abdominal pain, Denies change in bowel habits, Denies coffee ground emesis, Denies early satiety, Denies excessive gas, Denies heartburn, Denies hematemesis, Denies hematochezia, Denies loss of appetite, Denies nausea, Denies vomiting Genitourinary: Reports hematuria and vaginal bleeding, Denies dysuria, Denies flank pain, Denies kidney stones, Denies menorrhagia, Denies urgency, Denies urinary frequency Musculoskeletal: Denies gait dysfunction, Denies limitation of motion, Denies morning stiffness, Denies muscle cramps Integumentary: Denies rash, Denies wounds, Denies brittle nails, Denies change in hair/nails, Denies darkening of skin Neurological: Reports confusion, Denies balance difficulties, Denies change in speech, Denies double vision, Denies gait dysfunction, Denies loss of vision, Denies motor disturbance, Denies numbness, Denies paralysis, Denies paresthesias , Denies seizures Psychiatric: Denies anxiety, denies shakiness of the lower extremity Denies depression Objective - Vital Signs Vital signs: Vital Signs Temp 98.1 F 06/16/18 05:00 Pulse 90 06/16/18 05:00 Resp 18 06/16/18 05:00 BP 124/74 06/16/18 05:00 Pulse Ox 98 06/16/18 05:00 Intake & Output 06/15/18 06/16/18 06/16/18 18:59 06:59 18:59 Intake Total 480 Output Total 1 Balance 479 Weight 77.5 kg Intake: Oral 480 Output: Stool 1 Other: Voiding Method Bedside Commode Bedside Commode Bedside Commode Diaper Diaper Diaper Incontinent Incontinent Incontinent # Voids 4 4 # Bowel Movements 2 - Constitutional General appearance: Present: cooperative, no acute distress, obese - EENT Eyes: Present: anicteric sclerae, EOMI, PERRLA ENT: Present: hearing grossly normal, NA/AT - Neck Neck: Present: normal ROM. Absent: lymphadenopathy, rigidity, stridor - Respiratory Respiratory: bilateral: CTA, negative: diminished, dullness, rales, rhonchi, wheezing, prolonged expiration, prolonged inspiration, other - Cardiovascular Rhythm: regular Heart sounds: normal: S1, S2 Abnormal Heart Sounds: Absent: systolic murmur, diastolic murmur, rub, S3 Gallop , S4 Gallop, click, other - Gastrointestinal General gastrointestinal: Present: normal bowel sounds, soft. Absent: organomegaly, tenderness - Integumentary Integumentary: Present: pale - Neurologic Neurologic: Present: CNII-XII intact - Musculoskeletal Musculoskeletal: Present: generalized weakness - Psychiatric Psychiatric Comment(s): A and O 2. Patient is alert to self and location. Psychiatric: Present: appropriate affect - Labs CBC & Chem 7: 06/16/18 07:15 06/13/18 07:54 Labs: Abnormal Lab Results - Last 24 Hours (Table) 06/15/18 06/15/18 06/15/18 Range/Units 11:20 17:02 20:10 RBC (3.80-5.40) m/uL Hgb (11.4-16.0) gm/dL Hct (34.0-46.0) % RDW (11.5-15.5) % Lymphocytes # (1.0-4.8) k/uL POC Glucose (mg/dL) 204 H 176 H 216 H (75-99) mg/dL 06/15/18 06/16/18 06/16/18 Range/Units 21:44 07:01 07:15 RBC 2.56 L 2.27 L (3.80-5.40) m/uL Hgb 7.8 L 7.0 L (11.4-16.0) gm/dL Hct 23.4 L 20.9 L (34.0-46.0) % RDW 16.3 H 16.5 H (11.5-15.5) % Lymphocytes # 0.8 L (1.0-4.8) k/uL POC Glucose (mg/dL) 141 H (75-99) mg/dL Assessment and Plan Plan: 1. Gross hematuria with vaginal bleeding with history of newly diagnosed Bladder cancer, [facility] is anticipating bladder surgery around May 2018, Dr. Roberts, urologist. Hemoglobin dropped to 6.2 today status post 1 unit PRBCs we will repeat him CBC in the evening. urology consult placed for possible cystoscopy. patient had Cystoscopy, evacuation of clot, transverse resection of bladder tumor, exploratory laparotomy with closure of bladder laceration in 2017. . CT abd with new hydronephrosis on the right . I and O monitoring . Radiation treatment completed yesterday additional treatment plan for Saturday. 2. Acute inferior wall STEMI involving RCA requiring drug-eluting stent to 99% of stenosis down to 0% successful stenting, performed 05/06/2018 Dr. Marie patient currently is on Lipitor 80 mg daily, Tenormin 25 mg daily, Plavix 75 mg daily aspirin 81 mg daily 3. Acute on Chronic blood loss anemia hemoglobin is 7.0, she has had a total of 4 units of packed red blood cells. We'll continue to monitor hemoglobins every 12 hours. Transfused when the hemoglobin is less than 7. 4. Acute UTI with hematuria. Levofloxacin initiated at 250mg IV daily. UC pending 5. Acute abdominal pain in the lower quadrant of the abdomen CT abdomen ordered with oral contrast no IV contrast needed to evaluate abdominal etiology. No diarrhea since patient's pain on the floor. 6. Neurocognitive deficits with memory loss, on Namenda 10 mg PAD, patient is not on any anticholinesterase medication. 7. Insomnia, schedule melatonin 6 mg at bedtime. 8. Hypertensive Vascular disease. Continue atenolol. 9. DVT prophylaxis, high risk known bladder cancer, with SCDs 10. Diabetes mellitus type 2 insulin requiring, uncontrolled with hypoglycemia. continue Lantus 35 units reduced from 55 units continue NovoLog scale, hemoglobin A1c is 7.0. 11. Acute kidney injury secondary to ATN/ dehydration secondary to hemodynamic instability with CKD stage III nephrotoxins will be avoided 12. Dysthymia, Zoloft 50 mg daily 13.Restless leg, on Mirapex 0. 25 mg daily when necessary, increase has helped with lower leg shaking. 14. Metabolic encephalopathy with underlying dementia likely secondary to delirium from being in the hospital. Patient was also anemic and have her infection contributing to the encephalopathy. Seroquel initiated 12.5 mg daily at bedtime. Son informed of the side effect of Seroquel of sudden being on the medication and agrees on continuing it for now Discharge plan: PT ot evaluation Impression and plan of care have been directed as dictated by the signing physician. Edelmira Zee nurse practitioner acting as scribe for signing physician.
[2018-06-16 11:28] LABS: Glucose,Whole Blood 175 mg/dL (75-99)
[2018-06-16 16:54] LABS: Glucose,Whole Blood 160 mg/dL (75-99)
[2018-06-16 20:10] LABS: Glucose,Whole Blood 215 mg/dL (75-99)
[2018-06-16] MEDS: QUEtiapine 25 MG TAB PO SCH (20:27)
[2018-06-16 22:11] LABS: Anisocytosis Slight; Basophils % (A) 0 %; Eosinophils # (A) 0.2 k/uL (0-0.7); Eosinophils % (A) 2 %; HCT 20.2 % (34.0-46.0); Hypochromasia Slight; Lymphocytes # (A) 0.6 k/uL (1.0-4.8); Lymphocytes % (A) 9 %; MCH 31.2 pg (25.0-35.0); MCHC 32.9 g/dL (31.0-37.0); MCV 94.7 fL (80.0-100.0); Mean Platelet Volume 6.6; Monocytes # (A) 0.3 k/uL (0-1.0); Monocytes % (A) 4 %; Neutrophils # (A) 5.4 k/uL (1.3-7.7); Neutrophils % (A) 83 %; Platelet Count 192 k/uL (150-450); RBC 2.13 m/uL (3.80-5.40); RDW 16.9 % (11.5-15.5); WBC 6.4 k/uL (3.8-10.6)
[2018-06-16 22:33] LABS: HGB 6.6 gm/dL (11.4-16.0)
[2018-06-17] MEDS: ACETAMINOPHEN TAB 325 MG TAB PO SCH ×4 (00:32→18:02)
[2018-06-17 07:15] LABS: Glucose,Whole Blood 150 mg/dL (75-99)
[2018-06-17 07:20] LABS: Anisocytosis Slight; Basophils % (A) 0 %; Eosinophils % (A) 1 %; HCT 28.4 % (34.0-46.0); Lymphocytes # (A) 0.5 k/uL (1.0-4.8); Lymphocytes % (A) 7 %; MCH 30.4 pg (25.0-35.0); MCHC 33.2 g/dL (31.0-37.0); MCV 91.8 fL (80.0-100.0); Mean Platelet Volume 6.7; Monocytes # (A) 0.3 k/uL (0-1.0); Monocytes % (A) 4 %; Neutrophils # (A) 6.2 k/uL (1.3-7.7); Neutrophils % (A) 87 %; Platelet Count 186 k/uL (150-450); Poikilocytosis Slight; RDW 17.1 % (11.5-15.5); WBC 7.2 k/uL (3.8-10.6)
[2018-06-17 07:25] LABS: HGB 9.4 gm/dL (11.4-16.0)
[2018-06-17 07:56] LABS: Albumin 2.7 g/dL (3.5-5.0); Potassium 4.4 mmol/L (3.5-5.1); Total Bilirubin 1.9 mg/dL (0.2-1.3)
[2018-06-17] MEDS: INSULIN ASPART 100 UNIT/ML 1 ML 10 ML VIAL SQ SCH ×4 (08:41→20:11)
[2018-06-17] MEDS: PANTOPRAZOLE 40 MG TABLET PO SCH (08:41)
[2018-06-17] MEDS: ATENOLOL 25 MG TAB PO SCH (08:41)
[2018-06-17] MEDS: CLOPIDOGREL 75 MG TAB PO SCH (08:41)
[2018-06-17] MEDS: MEMANTINE 10 MG TAB PO SCH ×2 (08:42→20:11)
[2018-06-17] MEDS: PRAVASTATIN SODIUM 40 MG TAB PO SCH (08:42)
[2018-06-17] MEDS: LEVOFLOXACIN 250 MG TAB PO SCH (08:42)
[2018-06-17] MEDS: PRAMIPEXOLE 0.25 MG TAB PO SCH (08:42)
[2018-06-17] MEDS: SERTRALINE 50 MG TAB PO SCH (08:42)
--- NOTE | 2018-06-17 10:40 | P.PN ---
Subjective Progress Note Date: 06/17/18 This is a 78-year-old pleasant female patient of Dr. Joshua Roper and Dr. Martinez underlying history of dementia, diabetes mellitus type 2, hypertension, hyperlipidemia, who is currently a very poor historian. He was last admitted on 05/07 for a prolonged hospital course and was treated for acute inferior wall STEMI involving the RCA requiring drug-eluting stent, patient also underwent cystoscopy for hematuria ending up having exploratory laparotomy with closure of bladder laceration post cystoscopy with history of bladder cancer which is newly diagnosed and eventually need radiation, hypertensive vascular disease, dysthymia, neurocognitive deficits with memory loss secondary to dementia comes in with gross hematuria and nausea and vomiting with increased weakness for the past 3-4 days. On evaluation patient denies having nausea or vomiting but does complain of stomach upset. She is very drowsy and falls back to sleep. No known evaluation of the blood work done in the ER , patient had a hemoglobin of 8.1 and leukocytosis 15.2, creatinine 1.58, BUN [address] head was done which was negative for acute changes chest x-ray negative for any acute changes. Urinalysis suggestive of more than 182 RBCs and WBCs 154. Vital signs assessed in the ER temp 99, blood pressure 100/80, pulse is 78. She does have a catheter patient was admitted for acute UTI, dehydration and gastroenteritis. Urology consult placed 06/11 patient examined at bedside oriented 1. Talked to the son in length about patient's ongoing hematuria. Urine cultures are still pending him continue levofloxacin for now. Patient continues to have vaginal bleeding. Dr. Martinez is of air and is planning to talk to radiation oncology and see if radiation could be started sooner. CT abdomen and pelvis was obtained that suggested right-sided hydronephrosis with bladder mass for him to 2 cm on the posterior wall of urinary bladder no ureteral calculus seen on the right side field pulmonary infiltrate and atelectasis is seen with the per pleural effusion. Chest x-ray 2 view will be obtained. Patient also had an episode of agitation in the morning with jitteriness in her arms and legs. One dose of Ativan was given. Hemoglobin improved to 8 after transfusion 06/12 patient has some confusion this morning. Hemoglobin has dropped to 7.[address] Rueda is taking patient for radiation today since there is no improvement in the hematuria. Due to patient's underlying dementia and increasing confusion will initiate patient on Seroquel low dose at bedtime. QT interval is normal will repeat EKG to assess for QT prolongation. Nurses instructed to minimize the use of Ativan needed. 06/13 patient continue has some confusion/delirium since she requires Ativan for agitation. Hemoglobin dropped to 6.1 this morning status post 1 unit PRBC. Patient is receiving radiation due to today followed by radiation tomorrow. Continues to have vaginal bleeding with clots. Patient is oriented 1. Continue CBC checked every 12. Patient complains of increased shakiness in the lower extremities increased Mirapex 2.25. Patient slept well on Seroquel 12.50 continue while patient of Hospital plan is to finish radiation therapy on Saturday with possible rehab unless patient decompressed and states will consider comfort care. Patient is too confused to contribute to physical therapy right now 06/14: Patient is resting in bed. Still having some confusion. Patient did pull out her IV early this morning by bringing her arm against the side. A new IV has been initiated. Her hemoglobin is at 8.2 at this time 1 unit of packed her blood cells given. Patient states that she had slept well last night she does want to get up on her own. Patient continues to be confused able to answer some questions appropriately. She is scheduled for radiation therapy today. 06/15: Patient is sitting up in a chair today. She still has some confusion able to answer some questions appropriately. Patient continues to have hematuria and vaginal bleeding. She was transfused in the night hemoglobin was 6.8. We will continue to monitor CBCs every 12 hours. Patient is scheduled for radiation therapy again on Saturday. She has completed her yesterday therapy without any complaints. 06/16: Patient is sitting up in a chair. Patient seems to have less confusion today able to answer questions appropriately. Patient knows where she is today compared to yesterday. However she still has some bouts of confusion during interview. Hemoglobin this morning was 7.0 we will continue to monitor. Patient denies any complaints at this time no chest pain, difficulty breathing, fever, or lightheadedness. Patient continues to have hematuria and vaginal bleeding. 06/17/18: Patient is resting comfortably in bed. Patient is alert to self only today. She is able to answer some questions with minimal confusion. Last night she had a hemoglobin of 6.6 her she received 2 units of packed red blood cells. Hemoglobin this morning was 9.4. Patient continues to have hematuria and vaginal bleeding. Patient denies any chest pain, difficulty breathing, fever or lightheadedness at this time. Patient is able to be up in her room with assistance. ROS Constitutional: Denies chills, Denies fever, Denies lethargy, Denies malaise, Denies poor appetite, Denies weakness, Denies weight loss Eyes: denies decreased vision, denies diplopia, denies discharge, denies pain Ears: decreased hearing Ears, nose, mouth and throat: Denies dental pain, Denies headache, Denies nasal discharge, Denies nose pain Cardiovascular: Denies chest pain, Denies decreased exercise tolerance, Denies edema, Denies high blood pressure, Denies irregular heart beat, Denies palpitations, Denies paroxysmal nocturnal dyspnea, Denies rapid heart beat, Denies shortness of breath Respiratory: Denies congestion, Denies cough, Denies cough with sputum, Denies dyspnea, Denies home oxygen, Denies wheezing Gastrointestinal: Denies abdominal pain, Denies change in bowel habits, Denies coffee ground emesis, Denies early satiety, Denies excessive gas, Denies heartburn, Denies hematemesis, Denies hematochezia, Denies loss of appetite, Denies nausea, Denies vomiting Genitourinary: Reports hematuria and vaginal bleeding, Denies dysuria, Denies flank pain, Denies kidney stones, Denies menorrhagia, Denies urgency, Denies urinary frequency Musculoskeletal: Denies gait dysfunction, Denies limitation of motion, Denies morning stiffness, Denies muscle cramps Integumentary: Denies rash, Denies wounds, Denies brittle nails, Denies change in hair/nails, Denies darkening of skin Neurological: Reports confusion, Denies balance difficulties, Denies change in speech, Denies double vision, Denies gait dysfunction, Denies loss of vision, Denies motor disturbance, Denies numbness, Denies paralysis, Denies paresthesias , Denies seizures Psychiatric: Denies anxiety, denies shakiness of the lower extremity Denies depression Objective - Vital Signs Vital signs: Vital Signs Temp 97.8 F 06/17/18 05:24 Pulse 99 06/17/18 05:24 Resp 18 06/17/18 05:24 BP 126/66 06/17/18 05:24 Pulse Ox 98 06/17/18 04:58 Intake & Output 06/16/18 06/17/18 06/17/18 18:59 06:59 18:59 Intake Total 1840 Output Total 1 Balance 1839 Weight 78.5 kg Intake: Oral 600 Blood Product 1240 Rc As-1 Unit 310 [id number] Rc As-1 Unit 310 [id number] Output: Stool 1 Other: Voiding Method Bedside Commode Bedside Commode Bedside Commode Diaper Diaper Diaper Incontinent Incontinent Incontinent # Voids 3 4 - Constitutional General appearance: Present: average body habitus, cooperative, no acute distress - EENT Eyes: Present: anicteric sclerae, EOMI, PERRLA ENT: Present: hearing grossly normal, NA/AT - Neck Neck: Present: normal ROM. Absent: lymphadenopathy - Respiratory Respiratory: bilateral: CTA, negative: diminished, dullness, rales, rhonchi, wheezing, prolonged expiration - Cardiovascular Rhythm: regular Heart sounds: normal: S1, S2 Abnormal Heart Sounds: Absent: systolic murmur, diastolic murmur, rub, S3 Gallop , S4 Gallop, click, other - Gastrointestinal General gastrointestinal: Present: normal bowel sounds, soft. Absent: organomegaly, tenderness - Integumentary Integumentary: Present: normal turgor, pale - Neurologic Neurologic: Present: CNII-XII intact - Musculoskeletal Musculoskeletal: Present: generalized weakness - Psychiatric Psychiatric Comment(s): Alert to self. Since her symptoms questions appropriately. - Labs CBC & Chem 7: 06/17/18 07:07 06/17/18 07:07 Labs: Abnormal Lab Results - Last 24 Hours (Table) 06/14/18 06/16/18 06/16/18 Range/Units 01:49 11:25 16:52 RBC (3.80-5.40) m/uL Hgb (11.4-16.0) gm/dL Hct (34.0-46.0) % RDW (11.5-15.5) % Lymphocytes # (1.0-4.8) k/uL Sodium (137-145) mmol/L Carbon Dioxide (22-30) mmol/L Creatinine (0.52-1.04) mg/dL Glucose (74-99) mg/dL POC Glucose (mg/dL) 175 H 160 H (75-99) mg/dL Calcium (8.4-10.2) mg/dL Total Bilirubin (0.2-1.3) mg/dL Total Protein (6.3-8.2) g/dL Albumin (3.5-5.0) g/dL Crossmatch See Detail 06/16/18 06/16/18 06/17/18 Range/Units 20:08 21:58 07:07 RBC 2.13 L 3.10 L (3.80-5.40) m/uL Hgb 6.6 L* 9.4 L D (11.4-16.0) gm/dL Hct 20.2 L 28.4 L (34.0-46.0) % RDW 16.9 H 17.1 H (11.5-15.5) % Lymphocytes # 0.6 L 0.5 L (1.0-4.8) k/uL Sodium (137-145) mmol/L Carbon Dioxide (22-30) mmol/L Creatinine (0.52-1.04) mg/dL Glucose (74-99) mg/dL POC Glucose (mg/dL) 215 H (75-99) mg/dL Calcium (8.4-10.2) mg/dL Total Bilirubin (0.2-1.3) mg/dL Total Protein (6.3-8.2) g/dL Albumin (3.5-5.0) g/dL Crossmatch 06/17/18 06/17/18 Range/Units 07:07 07:13 RBC (3.80-5.40) m/uL Hgb (11.4-16.0) gm/dL Hct (34.0-46.0) % RDW (11.5-15.5) % Lymphocytes # (1.0-4.8) k/uL Sodium 131 L (137-145) mmol/L Carbon Dioxide 21 L (22-30) mmol/L Creatinine 1.21 H (0.52-1.04) mg/dL Glucose 151 H (74-99) mg/dL POC Glucose (mg/dL) 150 H (75-99) mg/dL Calcium 8.0 L (8.4-10.2) mg/dL Total Bilirubin 1.9 H (0.2-1.3) mg/dL Total Protein 5.0 L (6.3-8.2) g/dL Albumin 2.7 L (3.5-5.0) g/dL Crossmatch Assessment and Plan Plan: 1. Gross hematuria with vaginal bleeding with history of newly diagnosed Bladder cancer, [facility] is anticipating bladder surgery around May 2018, Dr. Roberts, urologist. Hemoglobin dropped to 6.2 today status post 1 unit PRBCs we will repeat him CBC in the evening. urology consult placed for possible cystoscopy. patient had Cystoscopy, evacuation of clot, transverse resection of bladder tumor, exploratory laparotomy with closure of bladder laceration in 2017. . CT abd with new hydronephrosis on the right . I and O monitoring . Radiation treatment completed yesterday additional treatment plan for Saturday. 2. Acute inferior wall STEMI involving RCA requiring drug-eluting stent to 99% of stenosis down to 0% successful stenting, performed 05/06/2018 Dr. Marie patient currently is on Lipitor 80 mg daily, Tenormin 25 mg daily, Plavix 75 mg daily aspirin 81 mg daily 3. Acute on Chronic blood loss anemia hemoglobin is 7.0, she has had a total of 4 units of packed red blood cells. We'll continue to monitor hemoglobins every 12 hours. Transfused when the hemoglobin is less than 7. 4. Acute UTI with hematuria. Urine culture is negative no growth after 48 hours. Levofloxacin will be DC'd 5. Acute abdominal pain in the lower quadrant of the abdomen CT abdomen ordered with oral contrast no IV contrast needed to evaluate abdominal etiology. No diarrhea since patient's pain on the floor. 6. Neurocognitive deficits with memory loss, on Namenda 10 mg PAD, patient is not on any anticholinesterase medication. 7. Insomnia, schedule melatonin 6 mg at bedtime. 8. Hypertensive Vascular disease. Continue atenolol. 9. DVT prophylaxis, high risk known bladder cancer, with SCDs 10. Diabetes mellitus type 2 insulin requiring, uncontrolled with hypoglycemia. continue Lantus 35 units reduced from 55 units continue NovoLog scale, hemoglobin A1c is 7.0. 11. Acute kidney injury secondary to ATN/ dehydration secondary to hemodynamic instability with CKD stage III nephrotoxins will be avoided 12. Dysthymia, Zoloft 50 mg daily 13.Restless leg, on Mirapex 0. 25 mg daily when necessary, increase has helped with lower leg shaking. 14. Metabolic encephalopathy with underlying dementia likely secondary to delirium from being in the hospital. Patient was also anemic and have her infection contributing to the encephalopathy. Seroquel initiated 12.5 mg daily at bedtime. Son informed of the side effect of Seroquel of sudden being on the medication and agrees on continuing it for now Discharge plan: PT ot evaluation Impression and plan of care have been directed as dictated by the signing physician. Edelmira Zee nurse practitioner acting as scribe for signing physician.
[2018-06-17 11:19] LABS: Glucose,Whole Blood 200 mg/dL (75-99)
[2018-06-17 17:14] LABS: Glucose,Whole Blood 200 mg/dL (75-99)
[2018-06-17 20:02] LABS: Glucose,Whole Blood 208 mg/dL (75-99)
[2018-06-17] MEDS: QUEtiapine 25 MG TAB PO SCH (20:11)
[2018-06-17 23:20] LABS: Anisocytosis Slight; Basophils % (A) 0 %; Eosinophils # (A) 0.1 k/uL (0-0.7); Eosinophils % (A) 2 %; HCT 27.5 % (34.0-46.0); HGB 9.3 gm/dL (11.4-16.0); Lymphocytes # (A) 1.1 k/uL (1.0-4.8); Lymphocytes % (A) 17 %; MCH 30.7 pg (25.0-35.0); MCHC 33.8 g/dL (31.0-37.0); Mean Platelet Volume 6.7; Monocytes # (A) 0.6 k/uL (0-1.0); Monocytes % (A) 9 %; Neutrophils # (A) 4.6 k/uL (1.3-7.7); Neutrophils % (A) 70 %; Platelet Count 205 k/uL (150-450); Poikilocytosis Slight; RBC 3.02 m/uL (3.80-5.40); RDW 17.1 % (11.5-15.5); WBC 6.6 k/uL (3.8-10.6)
[2018-06-18] MEDS: ACETAMINOPHEN TAB 325 MG TAB PO SCH ×5 (01:09→23:46)
[2018-06-18] MEDS: LORazepam 2 MG/ML INJ IV PRN (03:49)
[2018-06-18 07:01] LABS: Glucose,Whole Blood 151 mg/dL (75-99)
[2018-06-18] MEDS: MEMANTINE 10 MG TAB PO SCH ×2 (08:03→21:41)
[2018-06-18] MEDS: PRAMIPEXOLE 0.25 MG TAB PO SCH (08:03)
[2018-06-18] MEDS: PRAVASTATIN SODIUM 40 MG TAB PO SCH (08:03)
[2018-06-18] MEDS: SERTRALINE 50 MG TAB PO SCH (08:03)
[2018-06-18] MEDS: ATENOLOL 25 MG TAB PO SCH (08:04)
[2018-06-18] MEDS: CLOPIDOGREL 75 MG TAB PO SCH (08:04)
[2018-06-18] MEDS: INSULIN ASPART 100 UNIT/ML 1 ML 10 ML VIAL SQ SCH ×4 (08:04→21:41)
[2018-06-18] MEDS: PANTOPRAZOLE 40 MG TABLET PO SCH (08:04)
[2018-06-18 10:25] LABS: Anisocytosis Slight; Basophils % (A) 0 %; Eosinophils # (A) 0.1 k/uL (0-0.7); Eosinophils % (A) 2 %; HCT 22.3 % (34.0-46.0); Lymphocytes # (A) 0.9 k/uL (1.0-4.8); Lymphocytes % (A) 14 %; MCH 30.8 pg (25.0-35.0); MCHC 34.1 g/dL (31.0-37.0); MCV 90.5 fL (80.0-100.0); Mean Platelet Volume 6.5; Monocytes # (A) 0.4 k/uL (0-1.0); Monocytes % (A) 6 %; Neutrophils # (A) 4.9 k/uL (1.3-7.7); Neutrophils % (A) 75 %; Platelet Count 173 k/uL (150-450); Poikilocytosis Slight; RBC 2.46 m/uL (3.80-5.40); RDW 17.2 % (11.5-15.5); WBC 6.6 k/uL (3.8-10.6)
[2018-06-18 10:34] LABS: HGB 7.6 gm/dL (11.4-16.0)
[2018-06-18 11:53] LABS: Glucose,Whole Blood 127 mg/dL (75-99)
--- NOTE | 2018-06-18 13:50 | P.PN ---
Subjective Progress Note Date: 06/18/18 The patient is a radiation therapy. She continues to have bleeding requiring transfusion. I will do cystoscopy at the bedside to see if I can determine the point of bleeding and whether there is anything else that can be done. I'll refrain from an anesthetic until I see what is going on. I will then discuss this with the patient and her son. Objective - Vital Signs Vital signs: Vital Signs Temp 98.2 F 06/18/18 12:44 Pulse 73 06/18/18 12:44 Resp 16 06/18/18 12:44 BP 106/59 06/18/18 12:44 Pulse Ox 96 06/18/18 12:44 Intake & Output 06/17/18 06/18/18 06/18/18 18:59 06:59 18:59 Output Total 2 Balance -2 Weight 76 kg 76 kg Output: Stool 2 Other: Voiding Method Bedside Commode Toilet Toilet Diaper Diaper Diaper Incontinent Incontinent Incontinent # Voids 4 4 - Labs CBC & Chem 7: 06/18/18 10:05 06/17/18 07:07 Labs: Abnormal Lab Results - Last 24 Hours (Table) 06/17/18 06/17/18 06/17/18 Range/Units 17:11 20:00 22:55 RBC 3.02 L (3.80-5.40) m/uL Hgb 9.3 L (11.4-16.0) gm/dL Hct 27.5 L (34.0-46.0) % RDW 17.1 H (11.5-15.5) % Lymphocytes # (1.0-4.8) k/uL POC Glucose (mg/dL) 200 H 208 H (75-99) mg/dL 06/18/18 06/18/18 06/18/18 Range/Units 07:00 10:05 11:51 RBC 2.46 L (3.80-5.40) m/uL Hgb 7.6 L D (11.4-16.0) gm/dL Hct 22.3 L (34.0-46.0) % RDW 17.2 H (11.5-15.5) % Lymphocytes # 0.9 L (1.0-4.8) k/uL POC Glucose (mg/dL) 151 H 127 H (75-99) mg/dL
--- NOTE | 2018-06-18 13:52 | P.PN ---
Subjective Progress Note Date: 06/18/18 This is a 78-year-old pleasant female patient of Dr. Joshua Roper and Dr. Martinez underlying history of dementia, diabetes mellitus type 2, hypertension, hyperlipidemia, who is currently a very poor historian. He was last admitted on 05/07 for a prolonged hospital course and was treated for acute inferior wall STEMI involving the RCA requiring drug-eluting stent, patient also underwent cystoscopy for hematuria ending up having exploratory laparotomy with closure of bladder laceration post cystoscopy with history of bladder cancer which is newly diagnosed and eventually need radiation, hypertensive vascular disease, dysthymia, neurocognitive deficits with memory loss secondary to dementia comes in with gross hematuria and nausea and vomiting with increased weakness for the past 3-4 days. On evaluation patient denies having nausea or vomiting but does complain of stomach upset. She is very drowsy and falls back to sleep. No known evaluation of the blood work done in the ER , patient had a hemoglobin of 8.1 and leukocytosis 15.2, creatinine 1.58, BUN [address] head was done which was negative for acute changes chest x-ray negative for any acute changes. Urinalysis suggestive of more than 182 RBCs and WBCs 154. Vital signs assessed in the ER temp 99, blood pressure 100/80, pulse is 78. She does have a catheter patient was admitted for acute UTI, dehydration and gastroenteritis. Urology consult placed 06/11 patient examined at bedside oriented 1. Talked to the son in length about patient's ongoing hematuria. Urine cultures are still pending him continue levofloxacin for now. Patient continues to have vaginal bleeding. Dr. Martinez is of air and is planning to talk to radiation oncology and see if radiation could be started sooner. CT abdomen and pelvis was obtained that suggested right-sided hydronephrosis with bladder mass for him to 2 cm on the posterior wall of urinary bladder no ureteral calculus seen on the right side field pulmonary infiltrate and atelectasis is seen with the per pleural effusion. Chest x-ray 2 view will be obtained. Patient also had an episode of agitation in the morning with jitteriness in her arms and legs. One dose of Ativan was given. Hemoglobin improved to 8 after transfusion 06/12 patient has some confusion this morning. Hemoglobin has dropped to 7.[address] Rueda is taking patient for radiation today since there is no improvement in the hematuria. Due to patient's underlying dementia and increasing confusion will initiate patient on Seroquel low dose at bedtime. QT interval is normal will repeat EKG to assess for QT prolongation. Nurses instructed to minimize the use of Ativan needed. 06/13 patient continue has some confusion/delirium since she requires Ativan for agitation. Hemoglobin dropped to 6.1 this morning status post 1 unit PRBC. Patient is receiving radiation due to today followed by radiation tomorrow. Continues to have vaginal bleeding with clots. Patient is oriented 1. Continue CBC checked every 12. Patient complains of increased shakiness in the lower extremities increased Mirapex 2.25. Patient slept well on Seroquel 12.50 continue while patient of Hospital plan is to finish radiation therapy on Saturday with possible rehab unless patient decompressed and states will consider comfort care. Patient is too confused to contribute to physical therapy right now 06/14: Patient is resting in bed. Still having some confusion. Patient did pull out her IV early this morning by bringing her arm against the side. A new IV has been initiated. Her hemoglobin is at 8.2 at this time 1 unit of packed her blood cells given. Patient states that she had slept well last night she does want to get up on her own. Patient continues to be confused able to answer some questions appropriately. She is scheduled for radiation therapy today. 06/15: Patient is sitting up in a chair today. She still has some confusion able to answer some questions appropriately. Patient continues to have hematuria and vaginal bleeding. She was transfused in the night hemoglobin was 6.8. We will continue to monitor CBCs every 12 hours. Patient is scheduled for radiation therapy again on Saturday. She has completed her yesterday therapy without any complaints. 06/16: Patient is sitting up in a chair. Patient seems to have less confusion today able to answer questions appropriately. Patient knows where she is today compared to yesterday. However she still has some bouts of confusion during interview. Hemoglobin this morning was 7.0 we will continue to monitor. Patient denies any complaints at this time no chest pain, difficulty breathing, fever, or lightheadedness. Patient continues to have hematuria and vaginal bleeding. 06/17/18: Patient is resting comfortably in bed. Patient is alert to self only today. She is able to answer some questions with minimal confusion. Last night she had a hemoglobin of 6.6 her she received 2 units of packed red blood cells. Hemoglobin this morning was 9.4. Patient continues to have hematuria and vaginal bleeding. Patient denies any chest pain, difficulty breathing, fever or lightheadedness at this time. Patient is able to be up in her room with assistance. 06/18: Hemoglobin 7.6. Patient is status post a total of 6 units of packed RBCs transfusion during this hospitalization. Dr. Martinez will perform bedside cystoscopy tomorrow. Patient is scheduled for radiation treatment tomorrow and that should complete her course. Patient denies any complaints of pain. Patient is sitting up in a chair today. She remains pleasantly confused. Physical therapy has recommended subacute rehab. The son has agreed for [facility] and social work is following. ROS Constitutional: Denies chills, Denies fever, Denies lethargy, Denies malaise, Denies poor appetite, Denies weakness, Denies weight loss Eyes: denies decreased vision, denies diplopia, denies discharge, denies pain Ears: decreased hearing Ears, nose, mouth and throat: Denies dental pain, Denies headache, Denies nasal discharge, Denies nose pain Cardiovascular: Denies chest pain, Denies decreased exercise tolerance, Denies edema, Denies high blood pressure, Denies irregular heart beat, Denies palpitations, Denies paroxysmal nocturnal dyspnea, Denies rapid heart beat, Denies shortness of breath Respiratory: Denies congestion, Denies cough, Denies cough with sputum, Denies dyspnea, Denies home oxygen, Denies wheezing Gastrointestinal: Denies abdominal pain, Denies change in bowel habits, Denies coffee ground emesis, Denies early satiety, Denies excessive gas, Denies heartburn, Denies hematemesis, Denies hematochezia, Denies loss of appetite, Denies nausea, Denies vomiting Genitourinary: Reports hematuria and vaginal bleeding, Denies dysuria, Denies flank pain, Denies kidney stones, Denies menorrhagia, Denies urgency, Denies urinary frequency Musculoskeletal: Denies gait dysfunction, Denies limitation of motion, Denies morning stiffness, Denies muscle cramps Integumentary: Denies rash, Denies wounds, Denies brittle nails, Denies change in hair/nails, Denies darkening of skin Neurological: Reports confusion, Denies balance difficulties, Denies change in speech, Denies double vision, Denies gait dysfunction, Denies loss of vision, Denies motor disturbance, Denies numbness, Denies paralysis, Denies paresthesias , Denies seizures Psychiatric: Denies anxiety, denies shakiness of the lower extremity Denies depression Objective - Vital Signs Vital signs: Vital Signs Temp 98.4 F 06/18/18 05:00 Pulse 89 06/18/18 05:00 Resp 16 06/18/18 05:00 BP 124/73 06/18/18 05:00 Pulse Ox 96 06/18/18 05:00 Intake & Output 06/17/18 06/18/18 06/18/18 18:59 06:59 18:59 Output Total 2 Balance -2 Weight 76 kg 76 kg Output: Stool 2 Other: Voiding Method Bedside Commode Toilet Toilet Diaper Diaper Diaper Incontinent Incontinent Incontinent # Voids 4 4 - Exam General appearance: Present: average body habitus, cooperative, no acute distress while sitting in recliner - EENT Eyes: Present: anicteric sclerae, EOMI, PERRLA ENT: Present: hearing grossly normal, NA/AT - Neck Neck: Present: normal ROM. Absent: lymphadenopathy - Respiratory Respiratory: bilateral: CTA, negative: diminished, dullness, rales, rhonchi, wheezing, prolonged expiration - Cardiovascular Rhythm: regular Heart sounds: normal: S1, S2 Abnormal Heart Sounds: Absent: systolic murmur, diastolic murmur, rub, S3 Gallop , S4 Gallop, click, other - Gastrointestinal General gastrointestinal: Present: normal bowel sounds, soft. Absent: organomegaly, tenderness - Integumentary Integumentary: Present: normal turgor, pale - Neurologic Neurologic: Present: CNII-XII intact - Musculoskeletal Musculoskeletal: Present: generalized weakness - Psychiatric Psychiatric Comment(s): Alert to self. Answers her symptoms questions appropriately. - Labs CBC & Chem 7: 06/18/18 10:05 06/17/18 07:07 Labs: Abnormal Lab Results - Last 24 Hours (Table) 06/17/18 06/17/18 06/17/18 Range/Units 11:17 17:11 20:00 RBC (3.80-5.40) m/uL Hgb (11.4-16.0) gm/dL Hct (34.0-46.0) % RDW (11.5-15.5) % POC Glucose (mg/dL) 200 H 200 H 208 H (75-99) mg/dL 06/17/18 06/18/18 Range/Units 22:55 07:00 RBC 3.02 L (3.80-5.40) m/uL Hgb 9.3 L (11.4-16.0) gm/dL Hct 27.5 L (34.0-46.0) % RDW 17.1 H (11.5-15.5) % POC Glucose (mg/dL) 151 H (75-99) mg/dL Assessment and Plan Plan: 1. Gross hematuria and vaginal bleeding with acute blood loss anemia secondary to newly diagnosed bladder cancer. Status post transfusion of total 6 units packed RBCs. Consult with Dr. Martinez appreciated. Radiation oncology is following with radiation treatment scheduled. Patient had cystoscopy, evacuation of clot, transverse resection of bladder tumor, exploratory laparotomy with closure of bladder laceration in 04/2018. CT abd with new hydronephrosis on the right. I and O monitoring. Radiation treatment completed tomorrow. Dr. Martinez to perform cystoscopy tomorrow. 2. Acute inferior wall STEMI involving RCA requiring drug-eluting stent to 99% of stenosis down to 0% successful stenting, performed 05/06/2018 Dr. Marie patient currently is on Lipitor 80 mg daily, Tenormin 25 mg daily, Plavix 75 mg daily aspirin 81 mg daily 3. Acute on Chronic blood loss anemia hemoglobin is 7.0, she has had a total of 4 units of packed red blood cells. We'll continue to monitor hemoglobins every 12 hours. Transfused when the hemoglobin is less than 7. 4. Acute UTI with hematuria. Urine culture is negative no growth after 48 hours. Levofloxacin will be DC'd 5. Acute abdominal pain in the lower quadrant of the abdomen CT abdomen ordered with oral contrast no IV contrast needed to evaluate abdominal etiology. No diarrhea since patient's pain on the floor. 6. Neurocognitive deficits with memory loss, on Namenda 10 mg PAD, patient is not on any anticholinesterase medication. 7. Insomnia, schedule melatonin 6 mg at bedtime. 8. Hypertensive Vascular disease. Continue atenolol. 9. DVT prophylaxis, high risk known bladder cancer, with SCDs 10. Diabetes mellitus type 2 insulin requiring, uncontrolled with hypoglycemia. continue Lantus 35 units reduced from 55 units continue NovoLog scale, hemoglobin A1c is 7.0. 11. Acute kidney injury secondary to ATN/ dehydration secondary to hemodynamic instability with CKD stage III nephrotoxins will be avoided 12. Dysthymia, Zoloft 50 mg daily 13.Restless leg, on Mirapex 0. 25 mg daily when necessary, increase has helped with lower leg shaking. 14. Metabolic encephalopathy with underlying dementia likely secondary to delirium from being in the hospital. Patient was also anemic and have her infection contributing to the encephalopathy. Seroquel initiated 12.5 mg daily at bedtime. Son informed of the side effect of Seroquel of sudden being on the medication and agrees on continuing it for now 15. Moderate protein calorie malnutrition on Glucerna 3 times daily. Discharge plan: [facility] for subacute rehab in the next 24-48 hours Impression and plan of care have been directed as dictated by the signing physician. Kylah Begum nurse practitioner acting as scribe for signing physician.
[2018-06-18 16:51] LABS: Glucose,Whole Blood 230 mg/dL (75-99)
[2018-06-18 20:10] LABS: Glucose,Whole Blood 219 mg/dL (75-99)
[2018-06-18] MEDS: QUEtiapine 25 MG TAB PO SCH (21:41)
[2018-06-18 22:43] LABS: Anisocytosis Slight; Basophils % (A) 0 %; Eosinophils # (A) 0.1 k/uL (0-0.7); Eosinophils % (A) 2 %; HCT 22.2 % (34.0-46.0); HGB 7.3 gm/dL (11.4-16.0); Hypochromasia Slight; Lymphocytes # (A) 0.8 k/uL (1.0-4.8); Lymphocytes % (A) 12 %; MCH 30.5 pg (25.0-35.0); MCV 92.2 fL (80.0-100.0); Mean Platelet Volume 7.2; Monocytes # (A) 0.4 k/uL (0-1.0); Monocytes % (A) 5 %; Neutrophils # (A) 5.4 k/uL (1.3-7.7); Neutrophils % (A) 78 %; Platelet Count 198 k/uL (150-450); Poikilocytosis Slight; RBC 2.41 m/uL (3.80-5.40); RDW 17.1 % (11.5-15.5); WBC 6.9 k/uL (3.8-10.6)
[2018-06-19] MEDS: ACETAMINOPHEN TAB 325 MG TAB PO SCH ×4 (06:20→23:54)
[2018-06-19 07:06] LABS: Glucose,Whole Blood 163 mg/dL (75-99)
[2018-06-19] MEDS: SERTRALINE 50 MG TAB PO SCH (07:33)
[2018-06-19] MEDS: MEMANTINE 10 MG TAB PO SCH ×2 (07:33→20:34)
[2018-06-19] MEDS: PRAVASTATIN SODIUM 40 MG TAB PO SCH (07:33)
[2018-06-19] MEDS: PRAMIPEXOLE 0.25 MG TAB PO SCH (07:34)
[2018-06-19] MEDS: CLOPIDOGREL 75 MG TAB PO SCH (07:42)
[2018-06-19] MEDS: ATENOLOL 25 MG TAB PO SCH (07:42)
[2018-06-19] MEDS: INSULIN ASPART 100 UNIT/ML 1 ML 10 ML VIAL SQ SCH ×4 (07:42→20:37)
[2018-06-19] MEDS: PANTOPRAZOLE 40 MG TABLET PO SCH (07:42)
[2018-06-19] MEDS: LORazepam 2 MG/ML INJ IV PRN (09:04)
[2018-06-19 11:05] LABS: Glucose,Whole Blood 179 mg/dL (75-99)
[2018-06-19 11:17] LABS: Anisocytosis Slight; Basophils % (A) 0 %; Eosinophils # (A) 0.1 k/uL (0-0.7); Eosinophils % (A) 1 %; HCT 21.9 % (34.0-46.0); HGB 7.3 gm/dL (11.4-16.0); Hypochromasia Slight; Lymphocytes # (A) 0.7 k/uL (1.0-4.8); Lymphocytes % (A) 8 %; MCH 31.3 pg (25.0-35.0); MCHC 33.2 g/dL (31.0-37.0); MCV 94.4 fL (80.0-100.0); Macrocytosis Slight; Mean Platelet Volume 6.6; Monocytes # (A) 0.4 k/uL (0-1.0); Monocytes % (A) 5 %; Neutrophils # (A) 6.8 k/uL (1.3-7.7); Neutrophils % (A) 83 %; Platelet Count 215 k/uL (150-450); Poikilocytosis Slight; RBC 2.32 m/uL (3.80-5.40); RDW 17.3 % (11.5-15.5); WBC 8.2 k/uL (3.8-10.6)
[2018-06-19 11:32] LABS: Albumin 2.5 g/dL (3.5-5.0); Calcium 7.9 mg/dL (8.4-10.2); Potassium 4.2 mmol/L (3.5-5.1); Total Bilirubin 0.7 mg/dL (0.2-1.3); Total Protein 4.8 g/dL (6.3-8.2)
--- NOTE | 2018-06-19 15:28 | P.PCN ---
Date of Procedure: 06/19/18 Preoperative Diagnosis: Invasive bladder cancer, gross hematuria recurrent Postoperative Diagnosis: Same secondary to persistent bladder cancer with erosion into the vagina Procedure(s) Performed: Cystoscopy Anesthesia: none Pathology: none sent Condition: stable Disposition: floor Indications for Procedure: The patient is 78. She has muscle invasive bladder cancer. Is been chosen by the patient and her son not to do aggressive treatment however she has been had problems over the last 6 weeks with recurrent bleeding. She has required anticoagulation that she did have coronary artery stent that required persistent anticoagulation. She has been placed on radiation to treat the bleeding cancer. Because of the persistence of bleeding despite 5 courses of radiation I will perform cystoscopy. Description of Procedure: The patient is prepped and draped sterilely at the bedside. She's placed in a frog position. The flexible cystoscope was introduced in the bladder. The majority of the bladder is normal however there is old blood clot on edematous apparent tumor on the right hemitrigone. I then do bimanual examination didn't feel tumor eroding into the vagina. Fortunately she does not have a vesicle vaginal fistula due to date. Impression: Muscle invasive bladder cancer eroding in the vagina causing persistent bleeding. This bleeding has not been adequately controlled by radiation Recommendations: I had a lengthy discussion with the patient and his son about options of treatment. The patient has been seen at the [facility] in the recent past. Radical cystectomy has been discussed. Prior to this the feeling between the son patient myself was that we would do radiation therapy to try to control the disease as we did not feel should be a great candidate for a cystectomy. However in the meanwhile she has tolerated the coronary artery angiography with stent, a bladder exploration and closure of a bladder rupture from clot retention and irrigation, As well as a repeat bladder tumor resection resection. The patient has had 5 treatments of 400 rd of radiation to the bladder to try to control the bleeding but it has not. I have spoken with of radiation oncology about potential future treatment. He states that up to 10 treatments could be given. He feels that most likely the bleeding would be controlled that this would be short-term only. I discussed with the patient and her son about going back to the [facility] to consider cystectomy. This will be the only method to control the bleeding. They'll deliberate on this and let me know. In the meanwhile we will continue with the radiation therapy. If aggressive treatment such as a cystectomy is not considered she may need hospice. I do not recommend any upper tract intervention until final decisions are made as to long -term treatment plans.
--- NOTE | 2018-06-19 16:28 | P.PN ---
Subjective Progress Note Date: 06/19/18 This is a 78-year-old pleasant female patient of Dr. Joshua Roper and Dr. Martinez underlying history of dementia, diabetes mellitus type 2, hypertension, hyperlipidemia, who is currently a very poor historian. He was last admitted on 05/07 for a prolonged hospital course and was treated for acute inferior wall STEMI involving the RCA requiring drug-eluting stent, patient also underwent cystoscopy for hematuria ending up having exploratory laparotomy with closure of bladder laceration post cystoscopy with history of bladder cancer which is newly diagnosed and eventually need radiation, hypertensive vascular disease, dysthymia, neurocognitive deficits with memory loss secondary to dementia comes in with gross hematuria and nausea and vomiting with increased weakness for the past 3-4 days. On evaluation patient denies having nausea or vomiting but does complain of stomach upset. She is very drowsy and falls back to sleep. No known evaluation of the blood work done in the ER , patient had a hemoglobin of 8.1 and leukocytosis 15.2, creatinine 1.58, BUN [address] head was done which was negative for acute changes chest x-ray negative for any acute changes. Urinalysis suggestive of more than 182 RBCs and WBCs 154. Vital signs assessed in the ER temp 99, blood pressure 100/80, pulse is 78. She does have a catheter patient was admitted for acute UTI, dehydration and gastroenteritis. Urology consult placed 06/11 patient examined at bedside oriented 1. Talked to the son in length about patient's ongoing hematuria. Urine cultures are still pending him continue levofloxacin for now. Patient continues to have vaginal bleeding. Dr. Martinez is of air and is planning to talk to radiation oncology and see if radiation could be started sooner. CT abdomen and pelvis was obtained that suggested right-sided hydronephrosis with bladder mass for him to 2 cm on the posterior wall of urinary bladder no ureteral calculus seen on the right side field pulmonary infiltrate and atelectasis is seen with the per pleural effusion. Chest x-ray 2 view will be obtained. Patient also had an episode of agitation in the morning with jitteriness in her arms and legs. One dose of Ativan was given. Hemoglobin improved to 8 after transfusion 06/12 patient has some confusion this morning. Hemoglobin has dropped to 7.[address] Rueda is taking patient for radiation today since there is no improvement in the hematuria. Due to patient's underlying dementia and increasing confusion will initiate patient on Seroquel low dose at bedtime. QT interval is normal will repeat EKG to assess for QT prolongation. Nurses instructed to minimize the use of Ativan needed. 06/13 patient continue has some confusion/delirium since she requires Ativan for agitation. Hemoglobin dropped to 6.1 this morning status post 1 unit PRBC. Patient is receiving radiation due to today followed by radiation tomorrow. Continues to have vaginal bleeding with clots. Patient is oriented 1. Continue CBC checked every 12. Patient complains of increased shakiness in the lower extremities increased Mirapex 2.25. Patient slept well on Seroquel 12.50 continue while patient of Hospital plan is to finish radiation therapy on Saturday with possible rehab unless patient decompressed and states will consider comfort care. Patient is too confused to contribute to physical therapy right now 06/14: Patient is resting in bed. Still having some confusion. Patient did pull out her IV early this morning by bringing her arm against the side. A new IV has been initiated. Her hemoglobin is at 8.2 at this time 1 unit of packed her blood cells given. Patient states that she had slept well last night she does want to get up on her own. Patient continues to be confused able to answer some questions appropriately. She is scheduled for radiation therapy today. 06/15: Patient is sitting up in a chair today. She still has some confusion able to answer some questions appropriately. Patient continues to have hematuria and vaginal bleeding. She was transfused in the night hemoglobin was 6.8. We will continue to monitor CBCs every 12 hours. Patient is scheduled for radiation therapy again on Saturday. She has completed her yesterday therapy without any complaints. 06/16: Patient is sitting up in a chair. Patient seems to have less confusion today able to answer questions appropriately. Patient knows where she is today compared to yesterday. However she still has some bouts of confusion during interview. Hemoglobin this morning was 7.0 we will continue to monitor. Patient denies any complaints at this time no chest pain, difficulty breathing, fever, or lightheadedness. Patient continues to have hematuria and vaginal bleeding. 06/17/18: Patient is resting comfortably in bed. Patient is alert to self only today. She is able to answer some questions with minimal confusion. Last night she had a hemoglobin of 6.6 her she received 2 units of packed red blood cells. Hemoglobin this morning was 9.4. Patient continues to have hematuria and vaginal bleeding. Patient denies any chest pain, difficulty breathing, fever or lightheadedness at this time. Patient is able to be up in her room with assistance. 06/18: Hemoglobin 7.6. Patient is status post a total of 6 units of packed RBCs transfusion during this hospitalization. Dr. Martinez will perform bedside cystoscopy tomorrow. Patient is scheduled for radiation treatment tomorrow and that should complete her course. Patient denies any complaints of pain. Patient is sitting up in a chair today. She remains pleasantly confused. Physical therapy has recommended subacute rehab. The son has agreed for [facility] and social work is following. 06/19: Patient completed radiation treatment this morning. Dr. Martinez is planning for cystoscopy this afternoon. Hemoglobin is stable at 7.3. Sodium 129, CO2 20 , BUN 17 creatinine 1.07. Pulse ox is 98% on room air. ROS Constitutional: Denies chills, Denies fever, Denies lethargy, Denies malaise, Denies poor appetite, Denies weakness Eyes: denies decreased vision, denies diplopia, denies discharge, denies pain Ears: decreased hearing Ears, nose, mouth and throat: Denies dental pain, Denies headache, Denies nasal discharge, Denies nose pain Cardiovascular: Denies chest pain, Denies decreased exercise tolerance, Denies edema, Denies high blood pressure, Denies irregular heart beat, Denies palpitations, Denies paroxysmal nocturnal dyspnea, Denies rapid heart beat, Denies shortness of breath Respiratory: Denies congestion, Denies cough, Denies cough with sputum, Denies dyspnea, Denies home oxygen, Denies wheezing Gastrointestinal: Denies abdominal pain, Denies change in bowel habits, Denies coffee ground emesis, Denies early satiety, Denies excessive gas, Denies heartburn, Denies hematemesis, Denies hematochezia, Denies loss of appetite, Denies nausea, Denies vomiting Genitourinary: Reports hematuria and vaginal bleeding, Denies dysuria, Denies flank pain, Denies kidney stones, Denies menorrhagia, Denies urgency, Denies urinary frequency Musculoskeletal: Denies gait dysfunction, Denies limitation of motion, Denies morning stiffness, Denies muscle cramps Integumentary: Denies rash, Denies wounds, Denies brittle nails, Denies change in hair/nails, Denies darkening of skin Neurological: Reports confusion, Denies balance difficulties, Denies change in speech, Denies double vision, Denies gait dysfunction, Denies loss of vision, Denies motor disturbance, Denies numbness, Denies paralysis, Denies paresthesias , Denies seizures Psychiatric: Denies anxiety, denies shakiness of the lower extremity Denies depression Objective - Vital Signs Vital signs: Vital Signs Temp 97.6 F 06/19/18 05:00 Pulse 100 06/19/18 08:00 Resp 16 06/19/18 08:00 BP 159/67 06/19/18 05:00 Pulse Ox 97 06/19/18 05:00 Intake & Output 06/18/18 06/19/18 06/19/18 18:59 06:59 18:59 Intake Total 1180 Output Total 2 Balance 1180 -2 Weight 76 kg 75.5 kg Intake: Oral 1180 Output: Stool 2 Other: Voiding Method Toilet Toilet Toilet Diaper Diaper Diaper Incontinent Incontinent Incontinent # Voids 3 2 # Bowel Movements 4 - Exam General appearance: Present: average body habitus, cooperative, no acute distress while sitting in bed, patient's son is at the bedside - EENT Eyes: Present: anicteric sclerae, EOMI, PERRLA ENT: Present: hearing grossly normal, NA/AT - Neck Neck: Present: normal ROM. Absent: lymphadenopathy - Respiratory Respiratory: bilateral: CTA, negative: diminished, dullness, rales, rhonchi, wheezing, prolonged expiration - Cardiovascular Rhythm: regular Heart sounds: normal: S1, S2 Abnormal Heart Sounds: Absent: systolic murmur, diastolic murmur, rub, S3 Gallop , S4 Gallop, click, other - Gastrointestinal General gastrointestinal: Present: normal bowel sounds, soft. Absent: organomegaly, tenderness - Integumentary Integumentary: Present: normal turgor, pale - Neurologic Neurologic: Present: CNII-XII intact - Musculoskeletal Musculoskeletal: Present: generalized weakness - Psychiatric Psychiatric Comment(s): Alert to self. Answers her symptoms questions appropriately. - Labs CBC & Chem 7: 06/19/18 10:55 06/19/18 10:57 Labs: Abnormal Lab Results - Last 24 Hours (Table) 06/18/18 06/18/18 06/18/18 Range/Units 11:51 16:50 20:09 RBC (3.80-5.40) m/uL Hgb (11.4-16.0) gm/dL Hct (34.0-46.0) % RDW (11.5-15.5) % Lymphocytes # (1.0-4.8) k/uL POC Glucose (mg/dL) 127 H 230 H 219 H (75-99) mg/dL 06/18/18 06/19/18 Range/Units 22:30 07:05 RBC 2.41 L (3.80-5.40) m/uL Hgb 7.3 L (11.4-16.0) gm/dL Hct 22.2 L (34.0-46.0) % RDW 17.1 H (11.5-15.5) % Lymphocytes # 0.8 L (1.0-4.8) k/uL POC Glucose (mg/dL) 163 H (75-99) mg/dL Assessment and Plan Plan: 1. Gross hematuria and vaginal bleeding with acute blood loss anemia secondary to newly diagnosed bladder cancer. Status post transfusion of total 6 units packed RBCs. Consult with Dr. Martinez appreciated. Radiation oncology is following with radiation treatment scheduled. Patient had cystoscopy, evacuation of clot, transverse resection of bladder tumor, exploratory laparotomy with closure of bladder laceration in 04/2018. CT abd with new hydronephrosis on the right. I and O monitoring. Radiation treatment completed today. Further plan to be developed. Dr. Martinez to perform cystoscopy this afternoon. 2. Acute inferior wall STEMI involving RCA requiring drug-eluting stent to 99% of stenosis down to 0% successful stenting, performed 05/06/2018 Dr. Marie patient currently is on Lipitor 80 mg daily, Tenormin 25 mg daily, Plavix 75 mg daily aspirin 81 mg daily 3. Acute on Chronic blood loss anemia hemoglobin is 7.0, she has had a total of 4 units of packed red blood cells. We'll continue to monitor hemoglobins every 12 hours. Transfused when the hemoglobin is less than 7. 4. Acute UTI with hematuria. Urine culture is negative no growth after 48 hours. Levofloxacin will be DC'd 5. Acute abdominal pain in the lower quadrant of the abdomen CT abdomen ordered with oral contrast no IV contrast needed to evaluate abdominal etiology. No diarrhea since patient's pain on the floor. 6. Neurocognitive deficits with memory loss, on Namenda 10 mg PAD, patient is not on any anticholinesterase medication. 7. Insomnia, schedule melatonin 6 mg at bedtime. 8. Hypertensive Vascular disease. Continue atenolol. 9. DVT prophylaxis, high risk known bladder cancer, with SCDs 10. Diabetes mellitus type 2 insulin requiring, uncontrolled with hypoglycemia. continue Lantus 35 units reduced from 55 units continue NovoLog scale, hemoglobin A1c is 7.0. 11. Acute kidney injury secondary to ATN/ dehydration secondary to hemodynamic instability with CKD stage III nephrotoxins will be avoided 12. Dysthymia, Zoloft 50 mg daily 13.Restless leg, on Mirapex 0. 25 mg daily when necessary, increase has helped with lower leg shaking. 14. Metabolic encephalopathy with underlying dementia likely secondary to delirium from being in the hospital. Patient was also anemic and have her infection contributing to the encephalopathy. Seroquel initiated 12.5 mg daily at bedtime. Son informed of the side effect of Seroquel of sudden being on the medication and agrees on continuing it for now 15. Moderate protein calorie malnutrition on Glucerna 3 times daily. Discharge plan: [facility] for subacute rehab in the next 24-48 hours Impression and plan of care have been directed as dictated by the signing physician. Kylah Begum nurse practitioner acting as scribe for signing physician.
[2018-06-19 17:25] LABS: Glucose,Whole Blood 227 mg/dL (75-99)
[2018-06-19] MEDS: QUEtiapine 25 MG TAB PO SCH (20:34)
[2018-06-19 21:03] LABS: Glucose,Whole Blood 174 mg/dL (75-99)
[2018-06-19 22:34] LABS: Anisocytosis Slight; Basophils % (A) 0 %; Eosinophils # (A) 0.2 k/uL (0-0.7); Eosinophils % (A) 3 %; Hypochromasia Slight; Lymphocytes # (A) 0.9 k/uL (1.0-4.8); Lymphocytes % (A) 16 %; MCHC 32.9 g/dL (31.0-37.0); Mean Platelet Volume 6.8; Monocytes # (A) 0.4 k/uL (0-1.0); Monocytes % (A) 7 %; Neutrophils # (A) 4.2 k/uL (1.3-7.7); Neutrophils % (A) 72 %; Platelet Count 208 k/uL (150-450); Poikilocytosis Slight; RBC 1.95 m/uL (3.80-5.40); RDW 17.2 % (11.5-15.5); WBC 5.8 k/uL (3.8-10.6)
[2018-06-19 23:06] LABS: HCT 18.4 % (34.0-46.0)
[2018-06-19 23:07] LABS: HGB 6.1 gm/dL (11.4-16.0)
[2018-06-20] MEDS: ACETAMINOPHEN TAB 325 MG TAB PO SCH ×4 (06:24→22:09)
[2018-06-20 07:20] LABS: Glucose,Whole Blood 178 mg/dL (75-99)
[2018-06-20] MEDS: SERTRALINE 50 MG TAB PO SCH (08:34)
[2018-06-20] MEDS: INSULIN ASPART 100 UNIT/ML 1 ML 10 ML VIAL SQ SCH ×4 (08:34→22:10)
[2018-06-20] MEDS: MEMANTINE 10 MG TAB PO SCH ×2 (08:34→22:09)
[2018-06-20] MEDS: PRAMIPEXOLE 0.25 MG TAB PO SCH (08:34)
[2018-06-20] MEDS: PRAVASTATIN SODIUM 40 MG TAB PO SCH (08:34)
[2018-06-20] MEDS: PANTOPRAZOLE 40 MG TABLET PO SCH (08:34)
[2018-06-20] MEDS: ATENOLOL 25 MG TAB PO SCH (08:34)
[2018-06-20] MEDS: LORazepam 2 MG/ML INJ IV PRN (08:38)
[2018-06-20] MEDS: CLOPIDOGREL 75 MG TAB PO SCH (08:40)
[2018-06-20 10:10] LABS: Anisocytosis Slight; HCT 23.4 % (34.0-46.0); Hypochromasia Slight; MCH 30.9 pg (25.0-35.0); MCHC 33.4 g/dL (31.0-37.0); MCV 92.6 fL (80.0-100.0); Mean Platelet Volume 6.5; Platelet Count 200 k/uL (150-450); Poikilocytosis Slight; RBC 2.52 m/uL (3.80-5.40); RDW 16.7 % (11.5-15.5); WBC 7.5 k/uL (3.8-10.6)
[2018-06-20 10:19] LABS: HGB 7.8 gm/dL (11.4-16.0)
[2018-06-20 10:58] LABS: Albumin 2.4 g/dL (3.5-5.0); Potassium 3.8 mmol/L (3.5-5.1); Total Bilirubin 1.9 mg/dL (0.2-1.3); Total Protein 4.6 g/dL (6.3-8.2)
[2018-06-20 11:19] LABS: Glucose,Whole Blood 191 mg/dL (75-99)
--- NOTE | 2018-06-20 14:44 | P.PN ---
Subjective Progress Note Date: 06/20/18 This is a 78-year-old pleasant female patient of Dr. Joshua Roper and Dr. Martinez underlying history of dementia, diabetes mellitus type 2, hypertension, hyperlipidemia, who is currently a very poor historian. He was last admitted on 05/07 for a prolonged hospital course and was treated for acute inferior wall STEMI involving the RCA requiring drug-eluting stent, patient also underwent cystoscopy for hematuria ending up having exploratory laparotomy with closure of bladder laceration post cystoscopy with history of bladder cancer which is newly diagnosed and eventually need radiation, hypertensive vascular disease, dysthymia, neurocognitive deficits with memory loss secondary to dementia comes in with gross hematuria and nausea and vomiting with increased weakness for the past 3-4 days. On evaluation patient denies having nausea or vomiting but does complain of stomach upset. She is very drowsy and falls back to sleep. No known evaluation of the blood work done in the ER , patient had a hemoglobin of 8.1 and leukocytosis 15.2, creatinine 1.58, BUN [address] head was done which was negative for acute changes chest x-ray negative for any acute changes. Urinalysis suggestive of more than 182 RBCs and WBCs 154. Vital signs assessed in the ER temp 99, blood pressure 100/80, pulse is 78. She does have a catheter patient was admitted for acute UTI, dehydration and gastroenteritis. Urology consult placed 06/11 patient examined at bedside oriented 1. Talked to the son in length about patient's ongoing hematuria. Urine cultures are still pending him continue levofloxacin for now. Patient continues to have vaginal bleeding. Dr. Martinez is of air and is planning to talk to radiation oncology and see if radiation could be started sooner. CT abdomen and pelvis was obtained that suggested right-sided hydronephrosis with bladder mass for him to 2 cm on the posterior wall of urinary bladder no ureteral calculus seen on the right side field pulmonary infiltrate and atelectasis is seen with the per pleural effusion. Chest x-ray 2 view will be obtained. Patient also had an episode of agitation in the morning with jitteriness in her arms and legs. One dose of Ativan was given. Hemoglobin improved to 8 after transfusion 06/12 patient has some confusion this morning. Hemoglobin has dropped to 7.[address] Rueda is taking patient for radiation today since there is no improvement in the hematuria. Due to patient's underlying dementia and increasing confusion will initiate patient on Seroquel low dose at bedtime. QT interval is normal will repeat EKG to assess for QT prolongation. Nurses instructed to minimize the use of Ativan needed. 06/13 patient continue has some confusion/delirium since she requires Ativan for agitation. Hemoglobin dropped to 6.1 this morning status post 1 unit PRBC. Patient is receiving radiation due to today followed by radiation tomorrow. Continues to have vaginal bleeding with clots. Patient is oriented 1. Continue CBC checked every 12. Patient complains of increased shakiness in the lower extremities increased Mirapex 2.25. Patient slept well on Seroquel 12.50 continue while patient of Hospital plan is to finish radiation therapy on Saturday with possible rehab unless patient decompressed and states will consider comfort care. Patient is too confused to contribute to physical therapy right now 06/14: Patient is resting in bed. Still having some confusion. Patient did pull out her IV early this morning by bringing her arm against the side. A new IV has been initiated. Her hemoglobin is at 8.2 at this time 1 unit of packed her blood cells given. Patient states that she had slept well last night she does want to get up on her own. Patient continues to be confused able to answer some questions appropriately. She is scheduled for radiation therapy today. 06/15: Patient is sitting up in a chair today. She still has some confusion able to answer some questions appropriately. Patient continues to have hematuria and vaginal bleeding. She was transfused in the night hemoglobin was 6.8. We will continue to monitor CBCs every 12 hours. Patient is scheduled for radiation therapy again on Saturday. She has completed her yesterday therapy without any complaints. 06/16: Patient is sitting up in a chair. Patient seems to have less confusion today able to answer questions appropriately. Patient knows where she is today compared to yesterday. However she still has some bouts of confusion during interview. Hemoglobin this morning was 7.0 we will continue to monitor. Patient denies any complaints at this time no chest pain, difficulty breathing, fever, or lightheadedness. Patient continues to have hematuria and vaginal bleeding. 06/17/18: Patient is resting comfortably in bed. Patient is alert to self only today. She is able to answer some questions with minimal confusion. Last night she had a hemoglobin of 6.6 her she received 2 units of packed red blood cells. Hemoglobin this morning was 9.4. Patient continues to have hematuria and vaginal bleeding. Patient denies any chest pain, difficulty breathing, fever or lightheadedness at this time. Patient is able to be up in her room with assistance. 1: Hemoglobin 7.6. Patient is status post a total of 6 units of packed RBCs transfusion during this hospitalization. Dr. Martinez will perform bedside cystoscopy tomorrow. Patient is scheduled for radiation treatment tomorrow and that should complete her course. Patient denies any complaints of pain. Patient is sitting up in a chair today. She remains pleasantly confused. Physical therapy has recommended subacute rehab. The son has agreed for [facility] and social work is following. 06/19: Patient completed radiation treatment this morning. Dr. Martinez is planning for cystoscopy this afternoon. Hemoglobin 7.3. Sodium 129, CO2 20, BUN 17 creatinine 1.07. Pulse ox is 98% on room air. 06/20: Patient underwent bedside cystoscopy with Dr. Martinez yesterday that found muscle invasive bladder cancer eroding the vagina causing persistent bleeding. This bleeding has not been adequately controlled by radiation. Dr. Martinez discussed case with radiation oncologist with plan for up to 10 radiation treatments and that most likely the bleeding would be controlled but for short term only. Dr. Martinez discussed with the son regarding returning to [facility] to consider cystectomy. If aggressive treatment such as cystectomy is not considered, patient is a hospice candidate. Repeat hemoglobin is 7.8 after 1 unit of packed RBCs for hemoglobin of 6.1 last evening. ROS Constitutional: Denies chills, Denies fever, Denies lethargy, Denies malaise, Denies poor appetite, reports weakness Eyes: denies decreased vision, denies diplopia, denies discharge, denies pain Ears: decreased hearing Ears, nose, mouth and throat: Denies dental pain, Denies headache, Denies nasal discharge, Denies nose pain Cardiovascular: Denies chest pain, Denies decreased exercise tolerance, Denies edema, Denies high blood pressure, Denies irregular heart beat, Denies palpitations, Denies paroxysmal nocturnal dyspnea, Denies rapid heart beat, Denies shortness of breath Respiratory: Denies congestion, Denies cough, Denies cough with sputum, Denies dyspnea, Denies home oxygen, Denies wheezing Gastrointestinal: Denies abdominal pain, Denies change in bowel habits, Denies coffee ground emesis, Denies early satiety, Denies excessive gas, Denies heartburn, Denies hematemesis, Denies hematochezia, Denies loss of appetite, Denies nausea, Denies vomiting Genitourinary: Reports hematuria and vaginal bleeding, Denies dysuria, Denies flank pain, Denies kidney stones, Denies menorrhagia, Denies urgency, Denies urinary frequency Musculoskeletal: Denies gait dysfunction, Denies limitation of motion, Denies morning stiffness, Denies muscle cramps Integumentary: Denies rash, Denies wounds, Denies brittle nails, Denies change in hair/nails, Denies darkening of skin Neurological: Reports confusion, Denies balance difficulties, Denies change in speech, Denies double vision, Denies gait dysfunction, Denies loss of vision, Denies motor disturbance, Denies numbness, Denies paralysis, Denies paresthesias , Denies seizures Psychiatric: Denies anxiety, denies shakiness of the lower extremity Denies depression Objective - Vital Signs Vital signs: Vital Signs Temp 98.6 F 06/20/18 07:50 Pulse 82 06/20/18 07:50 Resp 16 06/20/18 07:50 BP 116/56 06/20/18 07:50 Pulse Ox 96 06/20/18 07:34 Intake & Output 06/19/18 06/20/18 06/20/18 18:59 06:59 18:59 Intake Total 400 910 310 Output Total 4 2 Balance 396 908 310 Weight 75.5 kg 75.5 kg Intake: Oral 400 600 Blood Product 310 310 Rc As-1 Unit 0 310 [id number] Output: Stool 4 2 Other: Voiding Method Toilet Toilet Diaper Diaper Incontinent Incontinent # Voids 2 - Exam General appearance: Present: average body habitus, cooperative, no acute distress while sitting in bed, patient's son is at the bedside - EENT Eyes: Present: anicteric sclerae, EOMI, PERRLA ENT: Present: hearing grossly normal, NA/AT - Neck Neck: Present: normal ROM. Absent: lymphadenopathy - Respiratory Respiratory: bilateral: CTA, negative: diminished, dullness, rales, rhonchi, wheezing, prolonged expiration - Cardiovascular Rhythm: regular Heart sounds: normal: S1, S2 Abnormal Heart Sounds: Absent: systolic murmur, diastolic murmur, rub, S3 Gallop , S4 Gallop, click, other - Gastrointestinal General gastrointestinal: Present: normal bowel sounds, soft. Absent: organomegaly, tenderness - Integumentary Integumentary: Present: normal turgor, pale - Neurologic Neurologic: Present: CNII-XII intact - Musculoskeletal Musculoskeletal: Present: generalized weakness - Psychiatric Psychiatric Comment(s): Alert to self. Answers her symptoms questions appropriately. - Labs CBC & Chem 7: 06/20/18 09:40 06/20/18 09:40 Labs: Abnormal Lab Results - Last 24 Hours (Table) 06/19/18 06/19/18 06/19/18 Range/Units 10:55 10:57 11:04 RBC 2.32 L (3.80-5.40) m/uL Hgb 7.3 L (11.4-16.0) gm/dL Hct 21.9 L (34.0-46.0) % RDW 17.3 H (11.5-15.5) % Lymphocytes # 0.7 L (1.0-4.8) k/uL Sodium 129 L (137-145) mmol/L Carbon Dioxide 20 L (22-30) mmol/L Creatinine 1.07 H (0.52-1.04) mg/dL Glucose 149 H (74-99) mg/dL POC Glucose (mg/dL) 179 H (75-99) mg/dL Calcium 7.9 L (8.4-10.2) mg/dL Total Protein 4.8 L (6.3-8.2) g/dL Albumin 2.5 L (3.5-5.0) g/dL Crossmatch 06/19/18 06/19/18 06/19/18 Range/Units 17:24 20:36 22:21 RBC 1.95 L (3.80-5.40) m/uL Hgb 6.1 L* (11.4-16.0) gm/dL Hct 18.4 L* (34.0-46.0) % RDW 17.2 H (11.5-15.5) % Lymphocytes # 0.9 L (1.0-4.8) k/uL Sodium (137-145) mmol/L Carbon Dioxide (22-30) mmol/L Creatinine (0.52-1.04) mg/dL Glucose (74-99) mg/dL POC Glucose (mg/dL) 227 H 174 H (75-99) mg/dL Calcium (8.4-10.2) mg/dL Total Protein (6.3-8.2) g/dL Albumin (3.5-5.0) g/dL Crossmatch 06/20/18 06/20/18 06/20/18 Range/Units 01:40 07:19 09:40 RBC 2.52 L (3.80-5.40) m/uL Hgb 7.8 L D (11.4-16.0) gm/dL Hct 23.4 L (34.0-46.0) % RDW 16.7 H (11.5-15.5) % Lymphocytes # (1.0-4.8) k/uL Sodium (137-145) mmol/L Carbon Dioxide (22-30) mmol/L Creatinine (0.52-1.04) mg/dL Glucose (74-99) mg/dL POC Glucose (mg/dL) 178 H (75-99) mg/dL Calcium (8.4-10.2) mg/dL Total Protein (6.3-8.2) g/dL Albumin (3.5-5.0) g/dL Crossmatch See Detail Assessment and Plan Plan: 1. Gross hematuria and vaginal bleeding with acute blood loss anemia secondary to newly diagnosed bladder cancer. Status post transfusion of total 6 units packed RBCs. Consult with Dr. Martinez appreciated. Radiation oncology is following with radiation treatment scheduled. Patient had cystoscopy, evacuation of clot, transverse resection of bladder tumor, exploratory laparotomy with closure of bladder laceration in 04/2018. CT abd with new hydronephrosis on the right. I and O monitoring. Radiation treatment completed today. Further plan to be developed. Dr. Martinez performed repeat cystoscopy, report above. Plan for up to another 5 radiation treatments. 2. Acute inferior wall STEMI involving RCA requiring drug-eluting stent to 99% of stenosis down to 0% successful stenting, performed 05/06/2018 Dr. Marie patient currently is on Lipitor 80 mg daily, Tenormin 25 mg daily, Plavix 75 mg daily aspirin 81 mg daily 3. Acute on Chronic blood loss anemia, status post total of 7 units of packed red blood cells. We'll continue to monitor hemoglobins every 12 hours. Transfused when the hemoglobin is less than 7. 4. Acute UTI with hematuria. Urine culture is negative no growth after 48 hours. Levofloxacin will be DC'd 5. Acute abdominal pain in the lower quadrant of the abdomen CT abdomen ordered with oral contrast no IV contrast needed to evaluate abdominal etiology. No diarrhea since patient's pain on the floor. 6. Neurocognitive deficits with memory loss, on Namenda 10 mg PAD, patient is not on any anticholinesterase medication. 7. Insomnia, schedule melatonin 6 mg at bedtime. 8. Hypertensive Vascular disease. Continue atenolol. 9. DVT prophylaxis, high risk known bladder cancer, with SCDs 10. Diabetes mellitus type 2 insulin requiring, uncontrolled with hypoglycemia. continue Lantus 35 units reduced from 55 units continue NovoLog scale, hemoglobin A1c is 7.0. 11. Acute kidney injury secondary to ATN/ dehydration secondary to hemodynamic instability with CKD stage III nephrotoxins will be avoided 12. Dysthymia, Zoloft 50 mg daily 13.Restless leg, on Mirapex 0. 25 mg daily when necessary, increase has helped with lower leg shaking. 14. Metabolic encephalopathy with underlying dementia likely secondary to delirium from being in the hospital. Patient was also anemic and have her infection contributing to the encephalopathy. Seroquel initiated 12.5 mg daily at bedtime. Son informed of the side effect of Seroquel of sudden being on the medication and agrees on continuing it for now 15. Moderate protein calorie malnutrition on Glucerna 3 times daily. Discharge plan: [facility] for subacute rehab, timeframe to be determined. Impression and plan of care have been directed as dictated by the signing physician. Kylah Begum nurse practitioner acting as scribe for signing physician.
[2018-06-20 17:05] LABS: Glucose,Whole Blood 201 mg/dL (75-99)
[2018-06-20 20:14] LABS: Glucose,Whole Blood 197 mg/dL (75-99)
[2018-06-20] MEDS: QUEtiapine 25 MG TAB PO SCH (22:09)
[2018-06-21] MEDS: ACETAMINOPHEN TAB 325 MG TAB PO SCH ×4 (05:48→21:19)
[2018-06-21 07:03] LABS: Glucose,Whole Blood 133 mg/dL (75-99)
[2018-06-21] MEDS: PANTOPRAZOLE 40 MG TABLET PO SCH (09:16)
[2018-06-21] MEDS: PRAMIPEXOLE 0.25 MG TAB PO SCH (09:16)
[2018-06-21] MEDS: INSULIN ASPART 100 UNIT/ML 1 ML 10 ML VIAL SQ SCH ×4 (09:16→21:20)
[2018-06-21] MEDS: PRAVASTATIN SODIUM 40 MG TAB PO SCH (09:16)
[2018-06-21] MEDS: CLOPIDOGREL 75 MG TAB PO SCH (09:16)
[2018-06-21] MEDS: ATENOLOL 25 MG TAB PO SCH (09:16)
[2018-06-21] MEDS: SERTRALINE 50 MG TAB PO SCH (09:17)
[2018-06-21] MEDS: MEMANTINE 10 MG TAB PO SCH ×2 (09:17→21:19)
[2018-06-21 11:03] LABS: Anisocytosis Slight; Basophils % (A) 0 %; Eosinophils # (A) 0.3 k/uL (0-0.7); Eosinophils % (A) 4 %; HCT 24.6 % (34.0-46.0); HGB 8.1 gm/dL (11.4-16.0); Hypochromasia Slight; Lymphocytes # (A) 0.7 k/uL (1.0-4.8); Lymphocytes % (A) 11 %; MCH 30.9 pg (25.0-35.0); MCHC 33.1 g/dL (31.0-37.0); MCV 93.3 fL (80.0-100.0); Mean Platelet Volume 6.5; Monocytes # (A) 0.3 k/uL (0-1.0); Monocytes % (A) 4 %; Neutrophils % (A) 79 %; Platelet Count 208 k/uL (150-450); Poikilocytosis Slight; RBC 2.63 m/uL (3.80-5.40); RDW 16.6 % (11.5-15.5); WBC 6.3 k/uL (3.8-10.6)
--- NOTE | 2018-06-21 11:05 | P.PN ---
Subjective Progress Note Date: 06/21/18 This is a 78-year-old pleasant female patient of Dr. Joshua Roper and Dr. Martinez underlying history of dementia, diabetes mellitus type 2, hypertension, hyperlipidemia, who is currently a very poor historian. He was last admitted on 05/07 for a prolonged hospital course and was treated for acute inferior wall STEMI involving the RCA requiring drug-eluting stent, patient also underwent cystoscopy for hematuria ending up having exploratory laparotomy with closure of bladder laceration post cystoscopy with history of bladder cancer which is newly diagnosed and eventually need radiation, hypertensive vascular disease, dysthymia, neurocognitive deficits with memory loss secondary to dementia comes in with gross hematuria and nausea and vomiting with increased weakness for the past 3-4 days. On evaluation patient denies having nausea or vomiting but does complain of stomach upset. She is very drowsy and falls back to sleep. No known evaluation of the blood work done in the ER , patient had a hemoglobin of 8.1 and leukocytosis 15.2, creatinine 1.58, BUN [address] head was done which was negative for acute changes chest x-ray negative for any acute changes. Urinalysis suggestive of more than 182 RBCs and WBCs 154. Vital signs assessed in the ER temp 99, blood pressure 100/80, pulse is 78. She does have a catheter patient was admitted for acute UTI, dehydration and gastroenteritis. Urology consult placed 06/11 patient examined at bedside oriented 1. Talked to the son in length about patient's ongoing hematuria. Urine cultures are still pending him continue levofloxacin for now. Patient continues to have vaginal bleeding. Dr. Martinez is of air and is planning to talk to radiation oncology and see if radiation could be started sooner. CT abdomen and pelvis was obtained that suggested right-sided hydronephrosis with bladder mass for him to 2 cm on the posterior wall of urinary bladder no ureteral calculus seen on the right side field pulmonary infiltrate and atelectasis is seen with the per pleural effusion. Chest x-ray 2 view will be obtained. Patient also had an episode of agitation in the morning with jitteriness in her arms and legs. One dose of Ativan was given. Hemoglobin improved to 8 after transfusion 06/12 patient has some confusion this morning. Hemoglobin has dropped to 7.[address] Rueda is taking patient for radiation today since there is no improvement in the hematuria. Due to patient's underlying dementia and increasing confusion will initiate patient on Seroquel low dose at bedtime. QT interval is normal will repeat EKG to assess for QT prolongation. Nurses instructed to minimize the use of Ativan needed. 06/13 patient continue has some confusion/delirium since she requires Ativan for agitation. Hemoglobin dropped to 6.1 this morning status post 1 unit PRBC. Patient is receiving radiation due to today followed by radiation tomorrow. Continues to have vaginal bleeding with clots. Patient is oriented 1. Continue CBC checked every 12. Patient complains of increased shakiness in the lower extremities increased Mirapex 2.25. Patient slept well on Seroquel 12.50 continue while patient of Hospital plan is to finish radiation therapy on Saturday with possible rehab unless patient decompressed and states will consider comfort care. Patient is too confused to contribute to physical therapy right now 06/14: Patient is resting in bed. Still having some confusion. Patient did pull out her IV early this morning by bringing her arm against the side. A new IV has been initiated. Her hemoglobin is at 8.2 at this time 1 unit of packed her blood cells given. Patient states that she had slept well last night she does want to get up on her own. Patient continues to be confused able to answer some questions appropriately. She is scheduled for radiation therapy today. 06/15: Patient is sitting up in a chair today. She still has some confusion able to answer some questions appropriately. Patient continues to have hematuria and vaginal bleeding. She was transfused in the night hemoglobin was 6.8. We will continue to monitor CBCs every 12 hours. Patient is scheduled for radiation therapy again on Saturday. She has completed her yesterday therapy without any complaints. 06/16: Patient is sitting up in a chair. Patient seems to have less confusion today able to answer questions appropriately. Patient knows where she is today compared to yesterday. However she still has some bouts of confusion during interview. Hemoglobin this morning was 7.0 we will continue to monitor. Patient denies any complaints at this time no chest pain, difficulty breathing, fever, or lightheadedness. Patient continues to have hematuria and vaginal bleeding. 06/17/18: Patient is resting comfortably in bed. Patient is alert to self only today. She is able to answer some questions with minimal confusion. Last night she had a hemoglobin of 6.6 her she received 2 units of packed red blood cells. Hemoglobin this morning was 9.4. Patient continues to have hematuria and vaginal bleeding. Patient denies any chest pain, difficulty breathing, fever or lightheadedness at this time. Patient is able to be up in her room with assistance. 06/18: Hemoglobin 7.6. Patient is status post a total of 6 units of packed RBCs transfusion during this hospitalization. Dr. Martinez will perform bedside cystoscopy tomorrow. Patient is scheduled for radiation treatment tomorrow and that should complete her course. Patient denies any complaints of pain. Patient is sitting up in a chair today. She remains pleasantly confused. Physical therapy has recommended subacute rehab. The son has agreed for [facility] and social work is following. 06/19: Patient completed radiation treatment this morning. Dr. Martinez is planning for cystoscopy this afternoon. Hemoglobin 7.3. Sodium 129, CO2 20, BUN 17 creatinine 1.07. Pulse ox is 98% on room air. 06/20: Patient underwent bedside cystoscopy with Dr. Martinez yesterday that found muscle invasive bladder cancer eroding the vagina causing persistent bleeding. This bleeding has not been adequately controlled by radiation. Dr. Martinez discussed case with radiation oncologist with plan for up to 10 radiation treatments and that most likely the bleeding would be controlled but for short term only. Dr. Martinez discussed with the son regarding returning to [facility] to consider cystectomy. If aggressive treatment such as cystectomy is not considered, patient is a hospice candidate. Repeat hemoglobin is 7.8 after 1 unit of packed RBCs for hemoglobin of 6.1 last evening. 06/21: Patient denies any new complaints. No change in plan at this time. Repeat lab work is pending. She is now total of 8 units of packed RBCs transfused. ROS Constitutional: Denies chills, Denies fever, Denies lethargy, Denies malaise, Denies poor appetite, reports weakness Eyes: denies decreased vision, denies diplopia, denies discharge, denies pain Ears: decreased hearing Ears, nose, mouth and throat: Denies dental pain, Denies headache, Denies nasal discharge, Denies nose pain Cardiovascular: Denies chest pain, Denies decreased exercise tolerance, Denies edema, Denies high blood pressure, Denies irregular heart beat, Denies palpitations, Denies paroxysmal nocturnal dyspnea, Denies rapid heart beat, Denies shortness of breath Respiratory: Denies congestion, Denies cough, Denies cough with sputum, Denies dyspnea, Denies home oxygen, Denies wheezing Gastrointestinal: Denies abdominal pain, Denies change in bowel habits, Denies coffee ground emesis, Denies early satiety, Denies excessive gas, Denies heartburn, Denies hematemesis, Denies hematochezia, Denies loss of appetite, Denies nausea, Denies vomiting Genitourinary: Reports hematuria and vaginal bleeding, Denies dysuria, Denies flank pain, Denies kidney stones, Denies menorrhagia, Denies urgency, Denies urinary frequency Musculoskeletal: Denies gait dysfunction, Denies limitation of motion, Denies morning stiffness, Denies muscle cramps Integumentary: Denies rash, Denies wounds, Denies brittle nails, Denies change in hair/nails, Denies darkening of skin Neurological: Reports confusion, Denies balance difficulties, Denies change in speech, Denies double vision, Denies gait dysfunction, Denies loss of vision, Denies motor disturbance, Denies numbness, Denies paralysis, Denies paresthesias , Denies seizures Psychiatric: Denies anxiety, denies shakiness of the lower extremity Denies depression Objective - Vital Signs Vital signs: Vital Signs Temp 97.6 F 06/21/18 05:00 Pulse 84 06/21/18 05:00 Resp 18 06/21/18 05:00 BP 129/78 06/21/18 05:00 Pulse Ox 96 06/21/18 05:00 Intake & Output 06/20/18 06/21/18 06/21/18 18:59 06:59 18:59 Intake Total 620 920 Output Total 2 Balance 620 918 Weight 75.5 kg 75.5 kg Intake: Oral 920 Blood Product 620 As-1 Unit 310 [id number] Rc As-1 Unit 310 [id number] Output: Stool 2 Other: Voiding Method Toilet Toilet Toilet Diaper Diaper Diaper Incontinent Incontinent Incontinent # Voids 5 2 # Bowel Movements 3 - Exam General appearance: Present: average body habitus, cooperative, no acute distress while sitting in bed, patient's son is at the bedside and all questions have been answered - EENT Eyes: Present: anicteric sclerae, EOMI, PERRLA ENT: Present: hearing grossly normal, NA/AT - Neck Neck: Present: normal ROM. Absent: lymphadenopathy - Respiratory Respiratory: bilateral: CTA, negative: diminished, dullness, rales, rhonchi, wheezing, prolonged expiration - Cardiovascular Rhythm: regular Heart sounds: normal: S1, S2 Abnormal Heart Sounds: Absent: systolic murmur, diastolic murmur, rub, S3 Gallop , S4 Gallop, click, other - Gastrointestinal General gastrointestinal: Present: normal bowel sounds, soft. Absent: organomegaly, tenderness Pleitez with bloody return and blood clots, vaginal bleeding. - Integumentary Integumentary: Present: normal turgor, pale - Neurologic Neurologic: Present: CNII-XII intact - Musculoskeletal Musculoskeletal: Present: generalized weakness - Psychiatric Psychiatric Comment(s): Alert to self. Answers her symptoms questions appropriately. - Labs CBC & Chem 7: 06/20/18 09:40 06/20/18 09:40 Labs: Abnormal Lab Results - Last 24 Hours (Table) 06/20/18 06/20/18 06/20/18 Range/Units 01:40 11:18 17:03 POC Glucose (mg/dL) 191 H 201 H (75-99) mg/dL Crossmatch See Detail 06/20/18 06/21/18 Range/Units 20:12 07:02 POC Glucose (mg/dL) 197 H 133 H (75-99) mg/dL Crossmatch Assessment and Plan Plan: 1. Gross hematuria and vaginal bleeding with acute blood loss anemia secondary to newly diagnosed bladder cancer. Status post transfusion of total 6 units packed RBCs. Consult with Dr. Martinez appreciated. Radiation oncology is following with radiation treatment scheduled. Patient had cystoscopy, evacuation of clot, transverse resection of bladder tumor, exploratory laparotomy with closure of bladder laceration in 04/2018. CT abd with new hydronephrosis on the right. I and O monitoring. Radiation treatment completed today. Further plan to be developed. Dr. Martinez performed repeat cystoscopy, report above. Plan for up to another 5 radiation treatments. 2. Acute inferior wall STEMI involving RCA requiring drug-eluting stent to 99% of stenosis down to 0% successful stenting, performed 05/06/2018 Dr. Marie patient currently is on Lipitor 80 mg daily, Tenormin 25 mg daily, Plavix 75 mg daily aspirin 81 mg daily 3. Acute on Chronic blood loss anemia, status post total of 8 units of packed red blood cells. We'll continue to monitor hemoglobins every 12 hours. Transfused when the hemoglobin is less than 7. 4. Acute UTI with hematuria. Urine culture is negative no growth after 48 hours. Levofloxacin will be DC'd 5. Acute abdominal pain in the lower quadrant of the abdomen CT abdomen ordered with oral contrast no IV contrast needed to evaluate abdominal etiology. No diarrhea since patient's pain on the floor. 6. Neurocognitive deficits with memory loss, on Namenda 10 mg PAD, patient is not on any anticholinesterase medication. 7. Insomnia, schedule melatonin 6 mg at bedtime. 8. Hypertensive Vascular disease. Continue atenolol. 9. DVT prophylaxis, high risk known bladder cancer, with SCDs 10. Diabetes mellitus type 2 insulin requiring, uncontrolled with hypoglycemia. continue Lantus 35 units reduced from 55 units continue NovoLog scale, hemoglobin A1c is 7.0. 11. Acute kidney injury secondary to ATN/ dehydration secondary to hemodynamic instability with CKD stage III nephrotoxins will be avoided 12. Dysthymia, Zoloft 50 mg daily 13.Restless leg, on Mirapex 0. 25 mg daily when necessary, increase has helped with lower leg shaking. 14. Metabolic encephalopathy with underlying dementia likely secondary to delirium from being in the hospital. Patient was also anemic and have her infection contributing to the encephalopathy. Seroquel initiated 12.5 mg daily at bedtime. Son informed of the side effect of Seroquel of sudden being on the medication and agrees on continuing it for now 15. Moderate protein calorie malnutrition on Glucerna 3 times daily. Discharge plan: [facility] for subacute rehab, timeframe to be determined. Impression and plan of care have been directed as dictated by the signing physician. Kylah Begum nurse practitioner acting as scribe for signing physician.
[2018-06-21 11:16] LABS: Albumin 2.3 g/dL (3.5-5.0); Calcium 7.8 mg/dL (8.4-10.2); Total Bilirubin 0.8 mg/dL (0.2-1.3); Total Protein 4.3 g/dL (6.3-8.2)
[2018-06-21 12:13] LABS: Glucose,Whole Blood 166 mg/dL (75-99)
[2018-06-21 17:15] LABS: Glucose,Whole Blood 178 mg/dL (75-99)
[2018-06-21 20:12] LABS: Glucose,Whole Blood 182 mg/dL (75-99)
[2018-06-21] MEDS: QUEtiapine 25 MG TAB PO SCH (21:19)
[2018-06-22] MEDS: ACETAMINOPHEN TAB 325 MG TAB PO SCH ×3 (04:10→18:11)
[2018-06-22 07:21] LABS: Glucose,Whole Blood 137 mg/dL (75-99)
[2018-06-22] MEDS: PANTOPRAZOLE 40 MG TABLET PO SCH (08:50)
[2018-06-22] MEDS: PRAMIPEXOLE 0.25 MG TAB PO SCH (08:50)
[2018-06-22] MEDS: SERTRALINE 50 MG TAB PO SCH (08:50)
[2018-06-22] MEDS: ATENOLOL 25 MG TAB PO SCH (08:50)
[2018-06-22] MEDS: INSULIN ASPART 100 UNIT/ML 1 ML 10 ML VIAL SQ SCH ×4 (08:50→21:06)
[2018-06-22] MEDS: CLOPIDOGREL 75 MG TAB PO SCH (08:50)
[2018-06-22] MEDS: MEMANTINE 10 MG TAB PO SCH ×2 (08:50→20:16)
[2018-06-22] MEDS: PRAVASTATIN SODIUM 40 MG TAB PO SCH (08:50)
[2018-06-22] MEDS: SODIUM CHLORIDE 0.9% 1,000 ML IV SCH (08:57)
--- NOTE | 2018-06-22 09:11 | P.PN ---
Subjective Progress Note Date: 06/22/18 This is a 78-year-old pleasant female patient of Dr. Joshua Roper and Dr. Martinez underlying history of dementia, diabetes mellitus type 2, hypertension, hyperlipidemia, who is currently a very poor historian. He was last admitted on 05/07 for a prolonged hospital course and was treated for acute inferior wall STEMI involving the RCA requiring drug-eluting stent, patient also underwent cystoscopy for hematuria ending up having exploratory laparotomy with closure of bladder laceration post cystoscopy with history of bladder cancer which is newly diagnosed and eventually need radiation, hypertensive vascular disease, dysthymia, neurocognitive deficits with memory loss secondary to dementia comes in with gross hematuria and nausea and vomiting with increased weakness for the past 3-4 days. On evaluation patient denies having nausea or vomiting but does complain of stomach upset. She is very drowsy and falls back to sleep. No known evaluation of the blood work done in the ER , patient had a hemoglobin of 8.1 and leukocytosis 15.2, creatinine 1.58, BUN [address] head was done which was negative for acute changes chest x-ray negative for any acute changes. Urinalysis suggestive of more than 182 RBCs and WBCs 154. Vital signs assessed in the ER temp 99, blood pressure 100/80, pulse is 78. She does have a catheter patient was admitted for acute UTI, dehydration and gastroenteritis. Urology consult placed 06/11 patient examined at bedside oriented 1. Talked to the son in length about patient's ongoing hematuria. Urine cultures are still pending him continue levofloxacin for now. Patient continues to have vaginal bleeding. Dr. Martinez is of air and is planning to talk to radiation oncology and see if radiation could be started sooner. CT abdomen and pelvis was obtained that suggested right-sided hydronephrosis with bladder mass for him to 2 cm on the posterior wall of urinary bladder no ureteral calculus seen on the right side field pulmonary infiltrate and atelectasis is seen with the per pleural effusion. Chest x-ray 2 view will be obtained. Patient also had an episode of agitation in the morning with jitteriness in her arms and legs. One dose of Ativan was given. Hemoglobin improved to 8 after transfusion 06/12 patient has some confusion this morning. Hemoglobin has dropped to 7.[address] Rueda is taking patient for radiation today since there is no improvement in the hematuria. Due to patient's underlying dementia and increasing confusion will initiate patient on Seroquel low dose at bedtime. QT interval is normal will repeat EKG to assess for QT prolongation. Nurses instructed to minimize the use of Ativan needed. 06/13 patient continue has some confusion/delirium since she requires Ativan for agitation. Hemoglobin dropped to 6.1 this morning status post 1 unit PRBC. Patient is receiving radiation due to today followed by radiation tomorrow. Continues to have vaginal bleeding with clots. Patient is oriented 1. Continue CBC checked every 12. Patient complains of increased shakiness in the lower extremities increased Mirapex 2.25. Patient slept well on Seroquel 12.50 continue while patient of Hospital plan is to finish radiation therapy on Saturday with possible rehab unless patient decompressed and states will consider comfort care. Patient is too confused to contribute to physical therapy right now 06/14: Patient is resting in bed. Still having some confusion. Patient did pull out her IV early this morning by bringing her arm against the side. A new IV has been initiated. Her hemoglobin is at 8.2 at this time 1 unit of packed her blood cells given. Patient states that she had slept well last night she does want to get up on her own. Patient continues to be confused able to answer some questions appropriately. She is scheduled for radiation therapy today. 06/15: Patient is sitting up in a chair today. She still has some confusion able to answer some questions appropriately. Patient continues to have hematuria and vaginal bleeding. She was transfused in the night hemoglobin was 6.8. We will continue to monitor CBCs every 12 hours. Patient is scheduled for radiation therapy again on Saturday. She has completed her yesterday therapy without any complaints. 06/16: Patient is sitting up in a chair. Patient seems to have less confusion today able to answer questions appropriately. Patient knows where she is today compared to yesterday. However she still has some bouts of confusion during interview. Hemoglobin this morning was 7.0 we will continue to monitor. Patient denies any complaints at this time no chest pain, difficulty breathing, fever, or lightheadedness. Patient continues to have hematuria and vaginal bleeding. 06/17/18: Patient is resting comfortably in bed. Patient is alert to self only today. She is able to answer some questions with minimal confusion. Last night she had a hemoglobin of 6.6 her she received 2 units of packed red blood cells. Hemoglobin this morning was 9.4. Patient continues to have hematuria and vaginal bleeding. Patient denies any chest pain, difficulty breathing, fever or lightheadedness at this time. Patient is able to be up in her room with assistance. 1: Hemoglobin 7.6. Patient is status post a total of 6 units of packed RBCs transfusion during this hospitalization. Dr. Martinez will perform bedside cystoscopy tomorrow. Patient is scheduled for radiation treatment tomorrow and that should complete her course. Patient denies any complaints of pain. Patient is sitting up in a chair today. She remains pleasantly confused. Physical therapy has recommended subacute rehab. The son has agreed for [facility] and social work is following. 06/19: Patient completed radiation treatment this morning. Dr. Martinez is planning for cystoscopy this afternoon. Hemoglobin 7.3. Sodium 129, CO2 20, BUN 17 creatinine 1.07. Pulse ox is 98% on room air. 06/20: Patient underwent bedside cystoscopy with Dr. Martinez yesterday that found muscle invasive bladder cancer eroding the vagina causing persistent bleeding. This bleeding has not been adequately controlled by radiation. Dr. Martinez discussed case with radiation oncologist with plan for up to 10 radiation treatments and that most likely the bleeding would be controlled but for short term only. Dr. Martinez discussed with the son regarding returning to [facility] to consider cystectomy. If aggressive treatment such as cystectomy is not considered, patient is a hospice candidate. Repeat hemoglobin is 7.8 after 1 unit of packed RBCs for hemoglobin of 6.1 last evening. 06/21: Patient denies any new complaints. No change in plan at this time. Repeat lab work is pending. She is now total of 8 units of packed RBCs transfused. 06/22: Patient continues to have bleeding with urination including blood clots. Morning labs are not available. Blood sugars running between 137 and 182. Patient denies having any dizziness. She denies any abdominal cramps, abdominal pain, flank pain. IV fluids will be resumed ROS Constitutional: Denies chills, Denies fever, Denies lethargy, Denies malaise, Denies poor appetite, reports weakness Eyes: denies decreased vision, denies diplopia, denies discharge, denies pain Ears: decreased hearing Ears, nose, mouth and throat: Denies dental pain, Denies headache, Denies nasal discharge, Denies nose pain Cardiovascular: Denies chest pain, Denies decreased exercise tolerance, Denies edema, Denies high blood pressure, Denies irregular heart beat, Denies palpitations, Denies paroxysmal nocturnal dyspnea, Denies rapid heart beat, Denies shortness of breath Respiratory: Denies congestion, Denies cough, Denies cough with sputum, Denies dyspnea, Denies home oxygen, Denies wheezing Gastrointestinal: Denies abdominal pain, Denies change in bowel habits, Denies coffee ground emesis, Denies early satiety, Denies excessive gas, Denies heartburn, Denies hematemesis, Denies hematochezia, Denies loss of appetite, Denies nausea, Denies vomiting Genitourinary: Reports hematuria and vaginal bleeding, Denies dysuria, Denies flank pain, Denies kidney stones, Denies menorrhagia, Denies urgency, Denies urinary frequency Musculoskeletal: Denies gait dysfunction, Denies limitation of motion, Denies morning stiffness, Denies muscle cramps Integumentary: Denies rash, Denies wounds, Denies brittle nails, Denies change in hair/nails, Denies darkening of skin Neurological: Reports confusion, Denies balance difficulties, Denies change in speech, Denies double vision, Denies gait dysfunction, Denies loss of vision, Denies motor disturbance, Denies numbness Denies paresthesias, Denies seizures Psychiatric: Denies anxiety, denies shakiness of the lower extremity Denies depression Objective - Vital Signs Vital signs: Vital Signs Temp 97.9 F 06/22/18 05:00 Pulse 91 06/22/18 05:00 Resp 18 06/22/18 05:00 BP 107/56 06/22/18 05:00 Pulse Ox 92 L 06/22/18 05:00 Intake & Output 06/21/18 06/22/18 06/22/18 18:59 06:59 18:59 Intake Total 150 Output Total 2 Balance 148 Weight 76.5 kg Intake: Oral 150 Output: Stool 2 Other: Voiding Method Toilet Toilet Diaper Diaper Incontinent Incontinent # Voids 4 5 # Bowel Movements 1 - Exam General appearance: Present: average body habitus, cooperative, no acute distress while sitting in bed, patient ambulated from the bathroom without difficulty - EENT Eyes: Present: anicteric sclerae, EOMI, PERRLA ENT: Present: hearing grossly normal, NA/AT - Neck Neck: Present: normal ROM. Absent: lymphadenopathy - Respiratory Respiratory: bilateral: CTA, negative: diminished, dullness, rales, rhonchi, wheezing, prolonged expiration - Cardiovascular Rhythm: regular Heart sounds: normal: S1, S2 Abnormal Heart Sounds: Absent: systolic murmur, diastolic murmur, rub, S3 Gallop , S4 Gallop, click, other - Gastrointestinal General gastrointestinal: Present: normal bowel sounds, soft. Absent: organomegaly, tenderness Bloody urine and blood clots/vaginal bleeding. - Integumentary Integumentary: Present: normal turgor, pale - Neurologic Neurologic: Present: CNII-XII intact - Musculoskeletal Musculoskeletal: Present: generalized weakness - Psychiatric Psychiatric Comment(s): Alert to self. Answers her symptoms questions appropriately. - Labs CBC & Chem 7: 06/21/18 10:45 06/21/18 10:45 Labs: Abnormal Lab Results - Last 24 Hours (Table) 06/21/18 06/21/18 06/21/18 Range/Units 10:45 10:45 12:12 RBC 2.63 L (3.80-5.40) m/uL Hgb 8.1 L (11.4-16.0) gm/dL Hct 24.6 L (34.0-46.0) % RDW 16.6 H (11.5-15.5) % Lymphocytes # 0.7 L (1.0-4.8) k/uL Sodium 131 L (137-145) mmol/L BUN 18 H (7-17) mg/dL Glucose 177 H (74-99) mg/dL POC Glucose (mg/dL) 166 H (75-99) mg/dL Calcium 7.8 L (8.4-10.2) mg/dL Total Protein 4.3 L (6.3-8.2) g/dL Albumin 2.3 L (3.5-5.0) g/dL 06/21/18 06/21/18 06/22/18 Range/Units 17:14 20:11 07:20 RBC (3.80-5.40) m/uL Hgb (11.4-16.0) gm/dL Hct (34.0-46.0) % RDW (11.5-15.5) % Lymphocytes # (1.0-4.8) k/uL Sodium (137-145) mmol/L BUN (7-17) mg/dL Glucose (74-99) mg/dL POC Glucose (mg/dL) 178 H 182 H 137 H (75-99) mg/dL Calcium (8.4-10.2) mg/dL Total Protein (6.3-8.2) g/dL Albumin (3.5-5.0) g/dL Assessment and Plan Plan: 1. Gross hematuria and vaginal bleeding with acute blood loss anemia secondary to newly diagnosed bladder cancer. Status post transfusion of total 6 units packed RBCs. Consult with Dr. Martinez appreciated. Radiation oncology is following with radiation treatment scheduled. Patient had cystoscopy, evacuation of clot, transverse resection of bladder tumor, exploratory laparotomy with closure of bladder laceration in 04/2018. CT abd with new hydronephrosis on the right. I and O monitoring. Radiation treatment completed today. Dr. Martinez performed repeat cystoscopy, report above. Plan for up to another 5 radiation treatments. 2. Acute inferior wall STEMI involving RCA requiring drug-eluting stent to 99% of stenosis down to 0% successful stenting, performed 05/06/2018 Dr. Marie patient currently is on Lipitor 80 mg daily, Tenormin 25 mg daily, Plavix 75 mg daily aspirin 81 mg daily 3. Acute on Chronic blood loss anemia, status post total of 8 units of packed red blood cells. We'll continue to monitor hemoglobins every 12 hours. Transfused when the hemoglobin is less than 7. 4. Acute UTI with hematuria. Urine culture is negative no growth after 48 hours. Levofloxacin will be DC'd 5. Acute abdominal pain in the lower quadrant of the abdomen CT abdomen ordered with oral contrast no IV contrast needed to evaluate abdominal etiology. No diarrhea since patient's pain on the floor. 6. Neurocognitive deficits with memory loss, on Namenda 10 mg PAD, patient is not on any anticholinesterase medication. 7. Insomnia, schedule melatonin 6 mg at bedtime. 8. Hypertensive Vascular disease. Continue atenolol. 9. DVT prophylaxis, high risk known bladder cancer, with SCDs 10. Diabetes mellitus type 2 insulin requiring, uncontrolled with hypoglycemia. continue Lantus 35 units reduced from 55 units continue NovoLog scale, hemoglobin A1c is 7.0. 11. Acute kidney injury secondary to ATN/ dehydration secondary to hemodynamic instability with CKD stage III nephrotoxins will be avoided 12. Dysthymia, Zoloft 50 mg daily 13.Restless leg, on Mirapex 0. 25 mg daily when necessary, increase has helped with lower leg shaking. 14. Metabolic encephalopathy with underlying dementia likely secondary to delirium from being in the hospital. Patient was also anemic and have her infection contributing to the encephalopathy. Seroquel initiated 12.5 mg daily at bedtime. Son informed of the side effect of Seroquel of sudden being on the medication and agrees on continuing it for now 15. Moderate protein calorie malnutrition on Glucerna 3 times daily. Discharge plan: [facility] for subacute rehab, timeframe to be determined. Impression and plan of care have been directed as dictated by the signing physician. Kylah Begum nurse practitioner acting as scribe for signing physician.
[2018-06-22 09:34] LABS: Anisocytosis Slight; HCT 25.6 % (34.0-46.0); HGB 8.1 gm/dL (11.4-16.0); Hypochromasia Slight; MCHC 31.8 g/dL (31.0-37.0); MCV 94.3 fL (80.0-100.0); Mean Platelet Volume 6.7; Platelet Count 268 k/uL (150-450); Poikilocytosis Slight; RBC 2.71 m/uL (3.80-5.40); RDW 16.4 % (11.5-15.5); WBC 8.1 k/uL (3.8-10.6)
[2018-06-22 09:51] LABS: Calcium 8.4 mg/dL (8.4-10.2); Potassium 4.2 mmol/L (3.5-5.1)
[2018-06-22] MEDS: LORazepam 2 MG/ML INJ IV PRN (11:08)
[2018-06-22 11:51] LABS: Glucose,Whole Blood 140 mg/dL (75-99)
[2018-06-22 16:53] LABS: Glucose,Whole Blood 197 mg/dL (75-99)
[2018-06-22] MEDS: QUEtiapine 25 MG TAB PO SCH (20:16)
[2018-06-22 20:40] LABS: Glucose,Whole Blood 192 mg/dL (75-99)
[2018-06-23] MEDS: ACETAMINOPHEN TAB 325 MG TAB PO SCH ×4 (00:57→17:03)
[2018-06-23] MEDS: SODIUM CHLORIDE 0.9% 1,000 ML IV SCH ×2 (04:28→12:14)
[2018-06-23 07:12] LABS: Glucose,Whole Blood 162 mg/dL (75-99)
[2018-06-23 07:17] LABS: Calcium 7.7 mg/dL (8.4-10.2); Potassium 3.5 mmol/L (3.5-5.1)
[2018-06-23 07:19] LABS: Anisocytosis Slight; HCT 20.4 % (34.0-46.0); Hypochromasia Slight; MCH 30.5 pg (25.0-35.0); MCHC 31.9 g/dL (31.0-37.0); MCV 95.6 fL (80.0-100.0); Macrocytosis Slight; Mean Platelet Volume 6.6; Platelet Count 269 k/uL (150-450); RBC 2.14 m/uL (3.80-5.40); RDW 17.1 % (11.5-15.5); WBC 7.5 k/uL (3.8-10.6)
[2018-06-23 07:23] LABS: HGB 6.5 gm/dL (11.4-16.0)
[2018-06-23] MEDS: INSULIN ASPART 100 UNIT/ML 1 ML 10 ML VIAL SQ SCH ×4 (07:45→20:34)
[2018-06-23] MEDS: PRAVASTATIN SODIUM 40 MG TAB PO SCH (07:46)
[2018-06-23] MEDS: ATENOLOL 25 MG TAB PO SCH (07:46)
[2018-06-23] MEDS: CLOPIDOGREL 75 MG TAB PO SCH (07:46)
[2018-06-23] MEDS: MEMANTINE 10 MG TAB PO SCH ×2 (07:46→20:34)
[2018-06-23] MEDS: SERTRALINE 50 MG TAB PO SCH (07:46)
[2018-06-23] MEDS: PANTOPRAZOLE 40 MG TABLET PO SCH (07:46)
[2018-06-23] MEDS: PRAMIPEXOLE 0.25 MG TAB PO SCH (07:47)
[2018-06-23 11:16] LABS: Glucose,Whole Blood 149 mg/dL (75-99)
--- NOTE | 2018-06-23 15:14 | P.PN ---
Subjective Progress Note Date: 06/23/18 Principal diagnosis: Bleeding from bladder mass Reena Dowling is a 78 year old with dementia and recent IA with vaginal bleeding and hematuria. She has received 6 fractions of radiation, however, her hb continues to trend down with active bleeding. Case was discussed with Dr. Roberts @[facility]. Patient was felt not to be a candidate for any surgical procedure in her acute state. We will continue palliative radiation for an additional 4 fractions in attempt to relieve her bleeding. Should she not get improvement over the next 1-2 fractions it will likely be necessary to d/c aspirin/plavix. Case will be discussed with cardiology. Objective - Vital Signs Vital signs: Vital Signs Temp 97.9 F 06/23/18 14:36 Pulse 88 06/23/18 14:36 Resp 16 06/23/18 14:36 BP 110/53 06/23/18 14:36 Pulse Ox 96 06/23/18 14:36 Intake & Output 06/22/18 06/23/18 06/23/18 18:59 06:59 18:59 Intake Total 400 590 310 Output Total 1 Balance 400 590 309 Weight 76 kg 76 kg Intake: Oral 400 590 Blood Product 310 Rc As-1 Unit 310 [id number] Output: Stool 1 Other: Voiding Method Toilet Toilet Toilet Diaper Diaper Diaper Incontinent Incontinent Incontinent # Voids 1 5 1 # Bowel Movements 1 - Labs CBC & Chem 7: 06/23/18 06:41 06/23/18 06:41 Labs: Abnormal Lab Results - Last 24 Hours (Table) 06/22/18 06/22/18 06/23/18 Range/Units 16:52 20:39 06:41 RBC 2.14 L (3.80-5.40) m/uL Hgb 6.5 L* D (11.4-16.0) gm/dL Hct 20.4 L (34.0-46.0) % RDW 17.1 H (11.5-15.5) % Sodium (137-145) mmol/L Creatinine (0.52-1.04) mg/dL Glucose (74-99) mg/dL POC Glucose (mg/dL) 197 H 192 H (75-99) mg/dL Calcium (8.4-10.2) mg/dL Crossmatch 06/23/18 06/23/18 06/23/18 Range/Units 06:41 07:05 09:39 RBC (3.80-5.40) m/uL Hgb (11.4-16.0) gm/dL Hct (34.0-46.0) % RDW (11.5-15.5) % Sodium 133 L (137-145) mmol/L Creatinine 1.05 H (0.52-1.04) mg/dL Glucose 148 H (74-99) mg/dL POC Glucose (mg/dL) 162 H (75-99) mg/dL Calcium 7.7 L (8.4-10.2) mg/dL Crossmatch See Detail 06/23/18 Range/Units 11:14 RBC (3.80-5.40) m/uL Hgb (11.4-16.0) gm/dL Hct (34.0-46.0) % RDW (11.5-15.5) % Sodium (137-145) mmol/L Creatinine (0.52-1.04) mg/dL Glucose (74-99) mg/dL POC Glucose (mg/dL) 149 H (75-99) mg/dL Calcium (8.4-10.2) mg/dL Crossmatch
--- NOTE | 2018-06-23 15:52 | P.PN ---
Subjective Progress Note Date: 06/23/18 This is a 78-year-old pleasant female patient of Dr. Joshua Roper and Dr. Martinez underlying history of dementia, diabetes mellitus type 2, hypertension, hyperlipidemia, who is currently a very poor historian. He was last admitted on 05/07 for a prolonged hospital course and was treated for acute inferior wall STEMI involving the RCA requiring drug-eluting stent, patient also underwent cystoscopy for hematuria ending up having exploratory laparotomy with closure of bladder laceration post cystoscopy with history of bladder cancer which is newly diagnosed and eventually need radiation, hypertensive vascular disease, dysthymia, neurocognitive deficits with memory loss secondary to dementia comes in with gross hematuria and nausea and vomiting with increased weakness for the past 3-4 days. On evaluation patient denies having nausea or vomiting but does complain of stomach upset. She is very drowsy and falls back to sleep. No known evaluation of the blood work done in the ER , patient had a hemoglobin of 8.1 and leukocytosis 15.2, creatinine 1.58, BUN [address] head was done which was negative for acute changes chest x-ray negative for any acute changes. Urinalysis suggestive of more than 182 RBCs and WBCs 154. Vital signs assessed in the ER temp 99, blood pressure 100/80, pulse is 78. She does have a catheter patient was admitted for acute UTI, dehydration and gastroenteritis. Urology consult placed 06/11 patient examined at bedside oriented 1. Talked to the son in length about patient's ongoing hematuria. Urine cultures are still pending him continue levofloxacin for now. Patient continues to have vaginal bleeding. Dr. Martinez is of air and is planning to talk to radiation oncology and see if radiation could be started sooner. CT abdomen and pelvis was obtained that suggested right-sided hydronephrosis with bladder mass for him to 2 cm on the posterior wall of urinary bladder no ureteral calculus seen on the right side field pulmonary infiltrate and atelectasis is seen with the per pleural effusion. Chest x-ray 2 view will be obtained. Patient also had an episode of agitation in the morning with jitteriness in her arms and legs. One dose of Ativan was given. Hemoglobin improved to 8 after transfusion 06/12 patient has some confusion this morning. Hemoglobin has dropped to 7.[address] Rueda is taking patient for radiation today since there is no improvement in the hematuria. Due to patient's underlying dementia and increasing confusion will initiate patient on Seroquel low dose at bedtime. QT interval is normal will repeat EKG to assess for QT prolongation. Nurses instructed to minimize the use of Ativan needed. 06/13 patient continue has some confusion/delirium since she requires Ativan for agitation. Hemoglobin dropped to 6.1 this morning status post 1 unit PRBC. Patient is receiving radiation due to today followed by radiation tomorrow. Continues to have vaginal bleeding with clots. Patient is oriented 1. Continue CBC checked every 12. Patient complains of increased shakiness in the lower extremities increased Mirapex 2.25. Patient slept well on Seroquel 12.50 continue while patient of Hospital plan is to finish radiation therapy on Saturday with possible rehab unless patient decompressed and states will consider comfort care. Patient is too confused to contribute to physical therapy right now 06/14: Patient is resting in bed. Still having some confusion. Patient did pull out her IV early this morning by bringing her arm against the side. A new IV has been initiated. Her hemoglobin is at 8.2 at this time 1 unit of packed her blood cells given. Patient states that she had slept well last night she does want to get up on her own. Patient continues to be confused able to answer some questions appropriately. She is scheduled for radiation therapy today. 06/15: Patient is sitting up in a chair today. She still has some confusion able to answer some questions appropriately. Patient continues to have hematuria and vaginal bleeding. She was transfused in the night hemoglobin was 6.8. We will continue to monitor CBCs every 12 hours. Patient is scheduled for radiation therapy again on Saturday. She has completed her yesterday therapy without any complaints. 06/16: Patient is sitting up in a chair. Patient seems to have less confusion today able to answer questions appropriately. Patient knows where she is today compared to yesterday. However she still has some bouts of confusion during interview. Hemoglobin this morning was 7.0 we will continue to monitor. Patient denies any complaints at this time no chest pain, difficulty breathing, fever, or lightheadedness. Patient continues to have hematuria and vaginal bleeding. 06/17/18: Patient is resting comfortably in bed. Patient is alert to self only today. She is able to answer some questions with minimal confusion. Last night she had a hemoglobin of 6.6 her she received 2 units of packed red blood cells. Hemoglobin this morning was 9.4. Patient continues to have hematuria and vaginal bleeding. Patient denies any chest pain, difficulty breathing, fever or lightheadedness at this time. Patient is able to be up in her room with assistance. 12: Hemoglobin 7.6. Patient is status post a total of 6 units of packed RBCs transfusion during this hospitalization. Dr. Martinez will perform bedside cystoscopy tomorrow. Patient is scheduled for radiation treatment tomorrow and that should complete her course. Patient denies any complaints of pain. Patient is sitting up in a chair today. She remains pleasantly confused. Physical therapy has recommended subacute rehab. The son has agreed for [facility] and social work is following. 06/19: Patient completed radiation treatment this morning. Dr. Martinez is planning for cystoscopy this afternoon. Hemoglobin 7.3. Sodium 129, CO2 20, BUN 17 creatinine 1.07. Pulse ox is 98% on room air. 06/20: Patient underwent bedside cystoscopy with Dr. Martinez yesterday that found muscle invasive bladder cancer eroding the vagina causing persistent bleeding. This bleeding has not been adequately controlled by radiation. Dr. Martinez discussed case with radiation oncologist with plan for up to 10 radiation treatments and that most likely the bleeding would be controlled but for short term only. Dr. Martinez discussed with the son regarding returning to [facility] to consider cystectomy. If aggressive treatment such as cystectomy is not considered, patient is a hospice candidate. Repeat hemoglobin is 7.8 after 1 unit of packed RBCs for hemoglobin of 6.1 last evening. 06/21: Patient denies any new complaints. No change in plan at this time. Repeat lab work is pending. She is now total of 8 units of packed RBCs transfused. 06/22: Patient continues to have bleeding with urination including blood clots. Morning labs are not available. Blood sugars running between 137 and 182. Patient denies having any dizziness. She denies any abdominal cramps, abdominal pain, flank pain. IV fluids will be resumed 06/23: Patient underwent radiation treatment this morning with plan for repeat on Saturday and Saturday. Her hemoglobin this morning is 6.5 and has been ordered for transfusion of one unit of packed RBCs. Radiation oncology has recommended that if patient does not get improvement over the next 1-2 treatment still be necessary to discontinue Plavix. Aspirin his are been discontinued. ROS Constitutional: Denies chills, Denies fever, Denies lethargy, Denies malaise, Denies poor appetite, reports weakness Eyes: denies decreased vision, denies diplopia, denies discharge, denies pain Ears: decreased hearing Ears, nose, mouth and throat: Denies dental pain, Denies headache, Denies nasal discharge, Denies nose pain Cardiovascular: Denies chest pain, Denies decreased exercise tolerance, Denies edema, Denies high blood pressure, Denies irregular heart beat, Denies palpitations, Denies paroxysmal nocturnal dyspnea, Denies rapid heart beat, Denies shortness of breath Respiratory: Denies congestion, Denies cough, Denies cough with sputum, Denies dyspnea, Denies home oxygen, Denies wheezing Gastrointestinal: Denies abdominal pain, Denies change in bowel habits, Denies coffee ground emesis, Denies early satiety, Denies excessive gas, Denies heartburn, Denies hematemesis, Denies hematochezia, Denies loss of appetite, Denies nausea, Denies vomiting Genitourinary: Reports hematuria and vaginal bleeding, Denies dysuria, Denies flank pain, Denies kidney stones, Denies menorrhagia, Denies urgency, Denies urinary frequency Musculoskeletal: Denies gait dysfunction, Denies limitation of motion, Denies morning stiffness, Denies muscle cramps Integumentary: Denies rash, Denies wounds, Denies brittle nails, Denies change in hair/nails, Denies darkening of skin Neurological: Reports confusion, Denies balance difficulties, Denies change in speech, Denies double vision, Denies gait dysfunction, Denies loss of vision, Denies motor disturbance, Denies numbness Denies paresthesias, Denies seizures Psychiatric: Denies anxiety, Denies depression Objective - Vital Signs Vital signs: Vital Signs Temp 97.7 F 06/23/18 05:00 Pulse 100 06/23/18 05:00 Resp 16 06/23/18 05:00 BP 117/67 06/23/18 05:00 Pulse Ox 94 L 06/23/18 05:00 Intake & Output 06/22/18 06/23/18 06/23/18 18:59 06:59 18:59 Intake Total 400 590 Balance 400 590 Weight 76 kg Intake: Oral 400 590 Other: Voiding Method Toilet Toilet Diaper Diaper Incontinent Incontinent # Voids 1 5 # Bowel Movements 1 - Exam General appearance: Present: average body habitus, cooperative, no acute distress while walking in her room and sitting in recliner, patient ambulated from the bathroom without difficulty - EENT Eyes: Present: anicteric sclerae, EOMI, PERRLA ENT: Present: hearing grossly normal, NA/AT - Neck Neck: Present: normal ROM. Absent: lymphadenopathy - Respiratory Respiratory: bilateral: CTA, negative: diminished, dullness, rales, rhonchi, wheezing, prolonged expiration - Cardiovascular Rhythm: regular Heart sounds: normal: S1, S2 Abnormal Heart Sounds: Absent: systolic murmur, diastolic murmur, rub, S3 Gallop , S4 Gallop, click, other - Gastrointestinal General gastrointestinal: Present: normal bowel sounds, soft. Absent: organomegaly, tenderness Bloody urine and blood clots/vaginal bleeding. - Integumentary Integumentary: Present: normal turgor, pale - Neurologic Neurologic: Present: CNII-XII intact - Musculoskeletal Musculoskeletal: Present: generalized weakness - Psychiatric Psychiatric Comment(s): Alert to self. Answers her symptoms questions appropriately. - Labs CBC & Chem 7: 06/23/18 06:41 06/23/18 06:41 Labs: Abnormal Lab Results - Last 24 Hours (Table) 06/22/18 06/22/18 06/22/18 Range/Units 09:07 09:07 11:50 RBC 2.71 L (3.80-5.40) m/uL Hgb 8.1 L (11.4-16.0) gm/dL Hct 25.6 L (34.0-46.0) % RDW 16.4 H (11.5-15.5) % Sodium 131 L (137-145) mmol/L Carbon Dioxide 20 L (22-30) mmol/L Creatinine 1.05 H (0.52-1.04) mg/dL Glucose 175 H (74-99) mg/dL POC Glucose (mg/dL) 140 H (75-99) mg/dL Calcium (8.4-10.2) mg/dL 06/22/18 06/22/18 06/23/18 Range/Units 16:52 20:39 06:41 RBC 2.14 L (3.80-5.40) m/uL Hgb 6.5 L* D (11.4-16.0) gm/dL Hct 20.4 L (34.0-46.0) % RDW 17.1 H (11.5-15.5) % Sodium (137-145) mmol/L Carbon Dioxide (22-30) mmol/L Creatinine (0.52-1.04) mg/dL Glucose (74-99) mg/dL POC Glucose (mg/dL) 197 H 192 H (75-99) mg/dL Calcium (8.4-10.2) mg/dL 06/23/18 06/23/18 Range/Units 06:41 07:05 RBC (3.80-5.40) m/uL Hgb (11.4-16.0) gm/dL Hct (34.0-46.0) % RDW (11.5-15.5) % Sodium 133 L (137-145) mmol/L Carbon Dioxide (22-30) mmol/L Creatinine 1.05 H (0.52-1.04) mg/dL Glucose 148 H (74-99) mg/dL POC Glucose (mg/dL) 162 H (75-99) mg/dL Calcium 7.7 L (8.4-10.2) mg/dL Assessment and Plan Plan: 1. Gross hematuria and vaginal bleeding with acute blood loss anemia secondary to newly diagnosed bladder cancer. Status post transfusion of total 6 units packed RBCs. Consult with Dr. Martinez appreciated. Radiation oncology is following with radiation treatment scheduled. Patient had cystoscopy, evacuation of clot, transverse resection of bladder tumor, exploratory laparotomy with closure of bladder laceration in 04/2018. CT abd with new hydronephrosis on the right. I and O monitoring. Radiation treatment to continue. Dr. Martinez performed repeat cystoscopy, report above. 2. Acute inferior wall STEMI involving RCA requiring drug-eluting stent to 99% of stenosis down to 0% successful stenting, performed 05/06/2018 Dr. Marie patient currently is on Lipitor 80 mg daily, Tenormin 25 mg daily, Plavix 75 mg daily 3. Acute on Chronic blood loss anemia, status post total of 8 units of packed red blood cells. We'll continue to monitor hemoglobins every 12 hours. Transfused when the hemoglobin is less than 7. 4. Acute UTI with hematuria. Urine culture is negative no growth after 48 hours. Levofloxacin will be DC'd 5. Acute abdominal pain in the lower quadrant of the abdomen CT abdomen ordered with oral contrast no IV contrast needed to evaluate abdominal etiology. No diarrhea since patient's pain on the floor. 6. Neurocognitive deficits with memory loss, on Namenda 10 mg PAD, patient is not on any anticholinesterase medication. 7. Insomnia, schedule melatonin 6 mg at bedtime. 8. Hypertensive Vascular disease. Continue atenolol. 9. DVT prophylaxis, high risk known bladder cancer, with SCDs 10. Diabetes mellitus type 2 insulin requiring, uncontrolled with hypoglycemia. continue Lantus 35 units reduced from 55 units continue NovoLog scale, hemoglobin A1c is 7.0. 11. Acute kidney injury secondary to ATN/ dehydration secondary to hemodynamic instability with CKD stage III nephrotoxins will be avoided 12. Dysthymia, Zoloft 50 mg daily 13.Restless leg, on Mirapex 0. 25 mg daily when necessary, increase has helped with lower leg shaking. 14. Metabolic encephalopathy with underlying dementia likely secondary to delirium from being in the hospital. Patient was also anemic and have her infection contributing to the encephalopathy. Seroquel initiated 12.5 mg daily at bedtime. Son informed of the side effect of Seroquel of sudden being on the medication and agrees on continuing it for now 15. Moderate protein calorie malnutrition on Glucerna 3 times daily. Discharge plan: [facility] for subacute rehab, timeframe to be determined. Impression and plan of care have been directed as dictated by the signing physician. Kylah Begum nurse practitioner acting as scribe for signing physician.
[2018-06-23 17:32] LABS: Glucose,Whole Blood 205 mg/dL (75-99)
[2018-06-23] MEDS: QUEtiapine 25 MG TAB PO SCH (20:34)
[2018-06-23 20:48] LABS: Glucose,Whole Blood 170 mg/dL (75-99)
[2018-06-24] MEDS: ACETAMINOPHEN TAB 325 MG TAB PO SCH ×4 (00:06→18:34)
[2018-06-24] MEDS: SODIUM CHLORIDE 0.9% 1,000 ML IV SCH ×2 (01:47→16:28)
[2018-06-24 07:10] LABS: Glucose,Whole Blood 149 mg/dL (75-99)
[2018-06-24 08:14] LABS: Anisocytosis Slight; HCT 24.4 % (34.0-46.0); HGB 7.8 gm/dL (11.4-16.0); Hypochromasia Slight; MCH 30.1 pg (25.0-35.0); MCHC 32.2 g/dL (31.0-37.0); MCV 93.6 fL (80.0-100.0); Mean Platelet Volume 6.6; Platelet Count 297 k/uL (150-450); Poikilocytosis Slight; RDW 16.6 % (11.5-15.5); WBC 8.2 k/uL (3.8-10.6)
[2018-06-24] MEDS: CLOPIDOGREL 75 MG TAB PO SCH (08:45)
[2018-06-24] MEDS: PANTOPRAZOLE 40 MG TABLET PO SCH (08:45)
[2018-06-24] MEDS: ATENOLOL 25 MG TAB PO SCH (08:45)
[2018-06-24] MEDS: MEMANTINE 10 MG TAB PO SCH ×2 (08:46→20:17)
[2018-06-24] MEDS: INSULIN ASPART 100 UNIT/ML 1 ML 10 ML VIAL SQ SCH ×4 (08:46→20:34)
[2018-06-24] MEDS: PRAVASTATIN SODIUM 40 MG TAB PO SCH (08:47)
[2018-06-24] MEDS: PRAMIPEXOLE 0.25 MG TAB PO SCH (08:47)
[2018-06-24] MEDS: SERTRALINE 50 MG TAB PO SCH (08:47)
[2018-06-24 11:37] LABS: Glucose,Whole Blood 117 mg/dL (75-99)
--- NOTE | 2018-06-24 13:01 | P.PN ---
Subjective Progress Note Date: 06/24/18 This is a 78-year-old pleasant female patient of Dr. Joshua Roper and Dr. Martinez underlying history of dementia, diabetes mellitus type 2, hypertension, hyperlipidemia, who is currently a very poor historian. He was last admitted on 05/07 for a prolonged hospital course and was treated for acute inferior wall STEMI involving the RCA requiring drug-eluting stent, patient also underwent cystoscopy for hematuria ending up having exploratory laparotomy with closure of bladder laceration post cystoscopy with history of bladder cancer which is newly diagnosed and eventually need radiation, hypertensive vascular disease, dysthymia, neurocognitive deficits with memory loss secondary to dementia comes in with gross hematuria and nausea and vomiting with increased weakness for the past 3-4 days. On evaluation patient denies having nausea or vomiting but does complain of stomach upset. She is very drowsy and falls back to sleep. No known evaluation of the blood work done in the ER , patient had a hemoglobin of 8.1 and leukocytosis 15.2, creatinine 1.58, BUN [address] head was done which was negative for acute changes chest x-ray negative for any acute changes. Urinalysis suggestive of more than 182 RBCs and WBCs 154. Vital signs assessed in the ER temp 99, blood pressure 100/80, pulse is 78. She does have a catheter patient was admitted for acute UTI, dehydration and gastroenteritis. Urology consult placed 06/11 patient examined at bedside oriented 1. Talked to the son in length about patient's ongoing hematuria. Urine cultures are still pending him continue levofloxacin for now. Patient continues to have vaginal bleeding. Dr. Martinez is of air and is planning to talk to radiation oncology and see if radiation could be started sooner. CT abdomen and pelvis was obtained that suggested right-sided hydronephrosis with bladder mass for him to 2 cm on the posterior wall of urinary bladder no ureteral calculus seen on the right side field pulmonary infiltrate and atelectasis is seen with the per pleural effusion. Chest x-ray 2 view will be obtained. Patient also had an episode of agitation in the morning with jitteriness in her arms and legs. One dose of Ativan was given. Hemoglobin improved to 8 after transfusion 06/12 patient has some confusion this morning. Hemoglobin has dropped to 7.[address] Rueda is taking patient for radiation today since there is no improvement in the hematuria. Due to patient's underlying dementia and increasing confusion will initiate patient on Seroquel low dose at bedtime. QT interval is normal will repeat EKG to assess for QT prolongation. Nurses instructed to minimize the use of Ativan needed. 06/13 patient continue has some confusion/delirium since she requires Ativan for agitation. Hemoglobin dropped to 6.1 this morning status post 1 unit PRBC. Patient is receiving radiation due to today followed by radiation tomorrow. Continues to have vaginal bleeding with clots. Patient is oriented 1. Continue CBC checked every 12. Patient complains of increased shakiness in the lower extremities increased Mirapex 2.25. Patient slept well on Seroquel 12.50 continue while patient of Hospital plan is to finish radiation therapy on Saturday with possible rehab unless patient decompressed and states will consider comfort care. Patient is too confused to contribute to physical therapy right now 06/14: Patient is resting in bed. Still having some confusion. Patient did pull out her IV early this morning by bringing her arm against the side. A new IV has been initiated. Her hemoglobin is at 8.2 at this time 1 unit of packed her blood cells given. Patient states that she had slept well last night she does want to get up on her own. Patient continues to be confused able to answer some questions appropriately. She is scheduled for radiation therapy today. 06/15: Patient is sitting up in a chair today. She still has some confusion able to answer some questions appropriately. Patient continues to have hematuria and vaginal bleeding. She was transfused in the night hemoglobin was 6.8. We will continue to monitor CBCs every 12 hours. Patient is scheduled for radiation therapy again on Saturday. She has completed her yesterday therapy without any complaints. 06/16: Patient is sitting up in a chair. Patient seems to have less confusion today able to answer questions appropriately. Patient knows where she is today compared to yesterday. However she still has some bouts of confusion during interview. Hemoglobin this morning was 7.0 we will continue to monitor. Patient denies any complaints at this time no chest pain, difficulty breathing, fever, or lightheadedness. Patient continues to have hematuria and vaginal bleeding. 06/17/18: Patient is resting comfortably in bed. Patient is alert to self only today. She is able to answer some questions with minimal confusion. Last night she had a hemoglobin of 6.6 her she received 2 units of packed red blood cells. Hemoglobin this morning was 9.4. Patient continues to have hematuria and vaginal bleeding. Patient denies any chest pain, difficulty breathing, fever or lightheadedness at this time. Patient is able to be up in her room with assistance. 12: Hemoglobin 7.6. Patient is status post a total of 6 units of packed RBCs transfusion during this hospitalization. Dr. Martinez will perform bedside cystoscopy tomorrow. Patient is scheduled for radiation treatment tomorrow and that should complete her course. Patient denies any complaints of pain. Patient is sitting up in a chair today. She remains pleasantly confused. Physical therapy has recommended subacute rehab. The son has agreed for [facility] and social work is following. 06/19: Patient completed radiation treatment this morning. Dr. Martinez is planning for cystoscopy this afternoon. Hemoglobin 7.3. Sodium 129, CO2 20, BUN 17 creatinine 1.07. Pulse ox is 98% on room air. 06/20: Patient underwent bedside cystoscopy with Dr. Martinez yesterday that found muscle invasive bladder cancer eroding the vagina causing persistent bleeding. This bleeding has not been adequately controlled by radiation. Dr. Martinez discussed case with radiation oncologist with plan for up to 10 radiation treatments and that most likely the bleeding would be controlled but for short term only. Dr. Martinez discussed with the son regarding returning to [facility] to consider cystectomy. If aggressive treatment such as cystectomy is not considered, patient is a hospice candidate. Repeat hemoglobin is 7.8 after 1 unit of packed RBCs for hemoglobin of 6.1 last evening. 06/21: Patient denies any new complaints. No change in plan at this time. Repeat lab work is pending. She is now total of 8 units of packed RBCs transfused. 06/22: Patient continues to have bleeding with urination including blood clots. Morning labs are not available. Blood sugars running between 137 and 182. Patient denies having any dizziness. She denies any abdominal cramps, abdominal pain, flank pain. IV fluids will be resumed 06/23: Patient underwent radiation treatment this morning with plan for repeat on Saturday and Saturday. Her hemoglobin this morning is 6.5 and has been ordered for transfusion of one unit of packed RBCs. Radiation oncology has recommended that if patient does not get improvement over the next 1-2 treatment still be necessary to discontinue Plavix. Aspirin his are been discontinued. 06/24: Repeat hemoglobin is 7.8 today. Patient is now status post total of 9 units of packed RBCs. She is undergone radiation treatment this morning. Await decision regarding Plavix. Most likely this will be discontinued. Telemetry will be discontinued. PT and OT to work with the patient. Per patient's son, there is surgery planned with her urologist at [facility] at the earliest time of July 07. ROS Constitutional: Denies chills, Denies fever, Denies lethargy, Denies malaise, Denies poor appetite, reports weakness Eyes: denies decreased vision, denies diplopia, denies discharge, denies pain Ears: decreased hearing Ears, nose, mouth and throat: Denies dental pain, Denies headache, Denies nasal discharge, Denies nose pain Cardiovascular: Denies chest pain, Denies decreased exercise tolerance, Denies edema, Denies high blood pressure, Denies irregular heart beat, Denies palpitations, Denies paroxysmal nocturnal dyspnea, Denies rapid heart beat, Denies shortness of breath Respiratory: Denies congestion, Denies cough, Denies cough with sputum, Denies dyspnea, Denies home oxygen, Denies wheezing Gastrointestinal: Denies abdominal pain, Denies change in bowel habits, Denies coffee ground emesis, Denies early satiety, Denies excessive gas, Denies heartburn, Denies hematemesis, Denies hematochezia, Denies loss of appetite, Denies nausea, Denies vomiting Genitourinary: Reports hematuria and vaginal bleeding, Denies dysuria, Denies flank pain, Denies kidney stones, Denies menorrhagia, Denies urgency, Denies urinary frequency Musculoskeletal: Denies gait dysfunction, Denies limitation of motion, Denies morning stiffness, Denies muscle cramps Integumentary: Denies rash, Denies wounds, Denies brittle nails, Denies change in hair/nails, Denies darkening of skin Neurological: Reports confusion, Denies balance difficulties, Denies change in speech, Denies double vision, Denies gait dysfunction, Denies loss of vision, Denies motor disturbance, Denies seizures Psychiatric: Denies anxiety, Denies depression Objective - Vital Signs Vital signs: Vital Signs Temp 96.9 F L 06/24/18 04:58 Pulse 100 06/24/18 04:58 Resp 17 06/24/18 04:58 BP 166/70 06/24/18 04:58 Pulse Ox 96 06/24/18 04:58 Intake & Output 06/23/18 06/24/18 06/24/18 18:59 06:59 18:59 Intake Total 310 540 Output Total 2 Balance 308 540 Weight 76 kg 76.9 kg Intake: Intake, IV Titration 300 Amount Sodium Chloride 0.9% 1, 300 000 ml @ 75 mls/hr IV . [id number] [facility] Rx#:[id number] Oral 240 Blood Product 310 Rc As-1 Unit 310 [id number] Output: Stool 2 Other: Voiding Method Toilet Toilet Toilet Diaper Diaper Diaper Incontinent Incontinent Incontinent # Voids 5 3 - Exam General appearance: Present: average body habitus, cooperative, no acute distress while walking in her room and sitting in recliner, patient's son is at the bedside - EENT Eyes: Present: anicteric sclerae, EOMI, PERRLA ENT: Present: hearing grossly normal, NA/AT - Neck Neck: Present: normal ROM. Absent: lymphadenopathy - Respiratory Respiratory: bilateral: CTA, negative: diminished, dullness, rales, rhonchi, wheezing, prolonged expiration - Cardiovascular Rhythm: regular Heart sounds: normal: S1, S2 Abnormal Heart Sounds: Absent: systolic murmur, diastolic murmur, rub, S3 Gallop , S4 Gallop, click, other - Gastrointestinal General gastrointestinal: Present: normal bowel sounds, soft. Absent: organomegaly, tenderness Bloody urine and blood clots/vaginal bleeding. - Integumentary Integumentary: Present: normal turgor, pale - Neurologic Neurologic: Present: CNII-XII intact - Musculoskeletal Musculoskeletal: Present: generalized weakness - Psychiatric Psychiatric Comment(s): Alert to self. Answers her symptoms questions appropriately. - Labs CBC & Chem 7: 06/24/18 07:39 06/24/18 07:39 Labs: Abnormal Lab Results - Last 24 Hours (Table) 06/23/18 06/23/18 06/23/18 Range/Units 09:39 17:24 20:25 RBC (3.80-5.40) m/uL Hgb (11.4-16.0) gm/dL Hct (34.0-46.0) % RDW (11.5-15.5) % Chloride (98-107) mmol/L Glucose (74-99) mg/dL POC Glucose (mg/dL) 205 H 170 H (75-99) mg/dL Calcium (8.4-10.2) mg/dL Crossmatch See Detail 06/24/18 06/24/18 06/24/18 Range/Units 07:08 07:39 07:39 RBC 2.60 L (3.80-5.40) m/uL Hgb 7.8 L (11.4-16.0) gm/dL Hct 24.4 L (34.0-46.0) % RDW 16.6 H (11.5-15.5) % Chloride 109 H (98-107) mmol/L Glucose 125 H (74-99) mg/dL POC Glucose (mg/dL) 149 H (75-99) mg/dL Calcium 8.0 L (8.4-10.2) mg/dL Crossmatch 06/24/18 Range/Units 11:33 RBC (3.80-5.40) m/uL Hgb (11.4-16.0) gm/dL Hct (34.0-46.0) % RDW (11.5-15.5) % Chloride (98-107) mmol/L Glucose (74-99) mg/dL POC Glucose (mg/dL) 117 H (75-99) mg/dL Calcium (8.4-10.2) mg/dL Crossmatch Assessment and Plan Plan: 1. Gross hematuria and vaginal bleeding with acute blood loss anemia secondary to newly diagnosed bladder cancer. Status post transfusion of total 6 units packed RBCs. Consult with Dr. Martinez appreciated. Radiation oncology is following with radiation treatment scheduled. Patient had cystoscopy, evacuation of clot, transverse resection of bladder tumor, exploratory laparotomy with closure of bladder laceration in 04/2018. CT abd with new hydronephrosis on the right. I and O monitoring. Radiation treatment to continue. Dr. Martinez performed repeat cystoscopy, report above. There is plan for surgery at [facility] possibly at the end of this month sometime after July 07. 2. Acute inferior wall STEMI involving RCA requiring drug-eluting stent to 99% of stenosis down to 0% successful stenting, performed 05/06/2018 Dr. Marie patient currently is on Lipitor 80 mg daily, Tenormin 25 mg daily, Plavix 75 mg daily 3. Acute on Chronic blood loss anemia, status post total of 8 units of packed red blood cells. We'll continue to monitor hemoglobins every 12 hours. Transfused when the hemoglobin is less than 7. 4. Acute UTI with hematuria. Urine culture is negative no growth after 48 hours. Levofloxacin will be DC'd 5. Acute abdominal pain in the lower quadrant of the abdomen CT abdomen ordered with oral contrast no IV contrast needed to evaluate abdominal etiology. No diarrhea since patient's pain on the floor. 6. Neurocognitive deficits with memory loss, on Namenda 10 mg PAD, patient is not on any anticholinesterase medication. 7. Insomnia, schedule melatonin 6 mg at bedtime. 8. Hypertensive Vascular disease. Continue atenolol. 9. DVT prophylaxis, high risk known bladder cancer, with SCDs 10. Diabetes mellitus type 2 insulin requiring, uncontrolled with hypoglycemia. continue Lantus 35 units reduced from 55 units continue NovoLog scale, hemoglobin A1c is 7.0. 11. Acute kidney injury secondary to ATN/ dehydration secondary to hemodynamic instability with CKD stage III nephrotoxins will be avoided 12. Dysthymia, Zoloft 50 mg daily 13.Restless leg, on Mirapex 0. 25 mg daily when necessary, increase has helped with lower leg shaking. 14. Metabolic encephalopathy with underlying dementia likely secondary to delirium from being in the hospital. Patient was also anemic and have her infection contributing to the encephalopathy. Seroquel initiated 12.5 mg daily at bedtime. Son informed of the side effect of Seroquel of sudden being on the medication and agrees on continuing it for now 15. Moderate protein calorie malnutrition on Glucerna 3 times daily. Discharge plan: [facility] for subacute rehab, timeframe to be determined. Impression and plan of care have been directed as dictated by the signing physician. Kylah Begum nurse practitioner acting as scribe for signing physician.
[2018-06-24 18:06] LABS: Glucose,Whole Blood 136 mg/dL (75-99)
[2018-06-24] MEDS: QUEtiapine 25 MG TAB PO SCH (20:17)
[2018-06-24 20:35] LABS: Glucose,Whole Blood 109 mg/dL (75-99)
[2018-06-25] MEDS ORDERED: ACETAMINOPHEN TAB 325 MG TAB ONE
[2018-06-25] MEDS: ACETAMINOPHEN TAB 325 MG TAB PO SCH ×5 (04:40→21:19)
[2018-06-25] MEDS: SODIUM CHLORIDE 0.9% 1,000 ML IV SCH (04:41)
[2018-06-25 07:16] LABS: Glucose,Whole Blood 148 mg/dL (75-99)
--- NOTE | 2018-06-25 09:17 | P.PN ---
Subjective Progress Note Date: 06/25/18 The patient is in the hospital with anemia due to bleeding from her bladder cancer invasive into the vagina. She is receiving radiation to try to control the bleeding. He has seen at the [facility] for possible cystectomy. Dr. Dominique spoke with the doctor there yesterday and she is not a candidate until the acute situation is controlled. Her bleeding seems to subsided a bit. Hopefully the Plavix can be discontinued which would assist in this treatment. Unfortunately is nothing further I can do at this point in time. Objective - Vital Signs Vital signs: Vital Signs Temp 98.1 F 06/25/18 05:00 Pulse 95 06/25/18 05:00 Resp 16 06/25/18 05:00 BP 126/70 06/25/18 05:00 Pulse Ox 95 06/25/18 05:00 Intake & Output 06/24/18 06/25/18 06/25/18 18:59 06:59 18:59 Intake Total 450 840 Output Total 1 Balance 450 839 Weight 76.4 kg Intake: Intake, IV Titration 450 300 Amount Sodium Chloride 0.9% 1, 450 300 000 ml @ 75 mls/hr IV . [id number] [facility] Rx#:[id number] Oral 540 Output: Stool 1 Other: Voiding Method Toilet Toilet Diaper Diaper Incontinent Incontinent # Voids 3 # Bowel Movements 3 - Labs CBC & Chem 7: 06/24/18 07:39 06/24/18 07:39 Labs: Abnormal Lab Results - Last 24 Hours (Table) 06/24/18 06/24/18 06/24/18 Range/Units 11:33 18:03 20:33 POC Glucose (mg/dL) 117 H 136 H 109 H (75-99) mg/dL 06/25/18 Range/Units 07:15 POC Glucose (mg/dL) 148 H (75-99) mg/dL
[2018-06-25] MEDS: INSULIN ASPART 100 UNIT/ML 1 ML 10 ML VIAL SQ SCH ×4 (09:41→21:18)
[2018-06-25] MEDS: PRAVASTATIN SODIUM 40 MG TAB PO SCH (09:42)
[2018-06-25] MEDS: CLOPIDOGREL 75 MG TAB PO SCH (09:42)
[2018-06-25] MEDS: MEMANTINE 10 MG TAB PO SCH ×2 (09:42→21:20)
[2018-06-25] MEDS: PANTOPRAZOLE 40 MG TABLET PO SCH (09:42)
[2018-06-25] MEDS: ATENOLOL 25 MG TAB PO SCH (09:42)
[2018-06-25] MEDS: PRAMIPEXOLE 0.25 MG TAB PO SCH (09:42)
[2018-06-25] MEDS: SERTRALINE 50 MG TAB PO SCH (09:43)
[2018-06-25 11:16] LABS: Anisocytosis Slight; Basophils % (A) 0 %; Eosinophils # (A) 0.5 k/uL (0-0.7); Eosinophils % (A) 5 %; HCT 25.7 % (34.0-46.0); HGB 8.5 gm/dL (11.4-16.0); Hypochromasia Slight; Lymphocytes # (A) 0.8 k/uL (1.0-4.8); Lymphocytes % (A) 9 %; MCH 30.8 pg (25.0-35.0); MCV 93.4 fL (80.0-100.0); Mean Platelet Volume 6.9; Monocytes # (A) 0.5 k/uL (0-1.0); Monocytes % (A) 5 %; Neutrophils # (A) 7.6 k/uL (1.3-7.7); Neutrophils % (A) 80 %; Platelet Count 253 k/uL (150-450); Poikilocytosis Slight; RBC 2.75 m/uL (3.80-5.40); RDW 16.6 % (11.5-15.5); WBC 9.5 k/uL (3.8-10.6)
[2018-06-25 11:40] LABS: Calcium 8.3 mg/dL (8.4-10.2); Potassium 4.2 mmol/L (3.5-5.1)
[2018-06-25 11:49] LABS: Glucose,Whole Blood 81 mg/dL (75-99)
--- NOTE | 2018-06-25 13:28 | P.CRDCN ---
History of Present Illness History of present illness: This is a pleasant 78-year-old female past medical history significant for acute ST elevated myocardial infarction May 06 of this year for which she underwent successful angioplasty of the mid RCA with drug- eluting stent per Dr. Marie. Echocardiogram obtained at that time reveals preserved left ventricular systolic function with ejection fraction 50-55%. Since that time underwent cystoscopy for hematuria ending up having exploratory laparotomy with closure of bladder laceration post cystoscopy. She has been diagnosed with bladder cancer and has undergone radiation therapy. She presented to the hospital June 09 symptoms of gross hematuria, vaginal bleeding, weakness, nausea, vomiting and diarrhea. She was found to have hemoglobin of 6.5. Baseline hemoglobin appears to be between 8 and 9. The time of my exam she is seen resting comfortably sitting in the chair with her son at the bedside. She denies symptoms of chest discomfort, shortness of breath, dizziness or palpitations. Blood pressure 137/67 heart rate 80 afebrile maintaining oxygen saturation on room air. Laboratory data reviewed, WBC 9.5, hemoglobin 8.5, pO2 53, sodium 136, potassium 4.2, creatinine 1.04. Last blood transfusion was 2 days ago. The son states the plan is for the patient to go to [facility] for possible cystectomy. According to Dr. Swartz reason documentation they spoke with the urologist there and she is currently not a candidate until the acute situation has been controlled and they're recommending discontinuation of Plavix. EKG on admission reveals sinus mechanism with significant artifact noted. Chest x-ray on admission negative for an acute cardiopulmonary process. Current cardiac medications include atenolol 25 mg daily, Plavix 75 mg daily, aspirin 81 mg daily and pravastatin 40 mg daily. Aspirin has been held since admission. At the time of my exam: CONSTITUTIONAL: Denies fever. Denies chills. EYES: Denies blurred vision. Denies vision changes. Denies eye pain. EARS, NOSE, MOUTH & THROAT: Denies headache. Denies sore throat. Denies ear pain. CARDIOVASCULAR: Denies chest pain. Denies shortness of breath. Denies orthopnea. Denies PND. Denies palpitations. RESPIRATORY: Denies cough. GASTROINTESTINAL: Denies abdominal pain. Denies diarrhea. Denies constipation. Denies nausea. Denies vomiting. MUSCULOSKELETAL: Denies myalgias. INTEGUMENTARY: Denies pruitis. Denies rash. NEUROLOGIC: Denies numbness. Denies tingling. Denies weakness. PSYCHIATRIC: Denies anxiety. Denies depression. ENDOCRINE: Denies fatigue. Denies weight change. Denies polydipsia. Denies polyurina. GENITOURINARY: Complains of bleeding. HEMATOLOGIC: Complains of ongoing hematuria. Blood pressure 137/67 heart rate 88 afebrile maintaining oxygen saturation on room air GENERAL: This is a 78-year-old female in no apparent distress at the time of my examination. Obese. HEENT: Head is atraumatic, normocephalic. Pupils are equal, round. Sclerae anicteric. Conjunctivae are clear. Mucous membranes of the mouth are moist. Neck is supple. There is no jugular venous distention. No carotid bruit is heard. LUNGS: Clear to auscultation no wheezes, rales or rhonchi. No chest wall tenderness is noted on palpation or with deep breathing. HEART: Regular rate and rhythm without murmurs, rubs or gallops. S1 and S2 heard. ABDOMEN: Soft, nontender. Bowel sounds are heard. No organomegaly noted. EXTREMITIES: No evidence of peripheral edema and no calf tenderness noted. VASCULAR: Radial and dorsalis pedis pulses palpated, no evidence of clubbing. NEUROLOGIC: Patient is awake, alert and oriented x3. ASSESSMENT Bladder cancer status post radiation with invasion into the vagina Hematuria and vaginal bleeding requiring multiple blood transfusions, 9 in total. Acute blood loss anemia Recent STEMI with stent to mid-RCA, was on dual anti-platelet therapy. Aspirin has been stopped. Hypertension Diabetes mellitus Dyslipidemia PLAN Stent was placed in the setting of an acute ST elevated AK on May 06. She has been maintained on dual antiplatelet therapy since that time. Considering she has been having significant life-threatening bleeding requiring a total of 9 blood transfusions we have discussed in detail with the patient and her son the option of stopping Plavix. It is our recommendation that the Plavix be discontinued with the understanding that this may cause in-stent restenosis, however given the life threatening nature of her current situation this is a reasonable option. Family and patient are agreeable with understanding of the risk. We will repeat an echocardiogram to assess LV function. Nurse Practitioner note has been reviewed, I agree with a documented findings and plan of care. Patient was seen and examined. Past Medical History Past Medical History: Coronary Artery Disease (CAD), Cancer, Chest Pain / Angina , Dementia, Diabetes Mellitus, Hyperlipidemia, Hypertension, Memory Impairment, Myocardial Infarction (AK), Osteoarthritis (OA) Additional Past Medical History / Comment(s): Restless leg syndrome, Bladder Cancer with Gross hematuria dementia Last Myocardial Infarction Date:: 05/06/18 History of Any Multi-Drug Resistant Organisms: None Reported Past Surgical History: Cholecystectomy, Heart Catheterization With Stent Additional Past Surgical History / Comment(s): Arthroscopic knee surgery left, Left ankle surgery 09/17/2014, Past Anesthesia/Blood Transfusion Reactions: No Reported Reaction Date of Last Stent Placement:: 05/06/18 Past Psychological History: No Psychological Hx Reported Smoking Status: Former smoker - Past Family History Father Family Medical History: Dementia Additional Family Medical History / Comment(s): ?mi Mother Family Medical History: Cancer (Pancreas) Sister(s) Family Medical History: Cancer (Lung cancer) Brother(s) Family Medical History: No Reported History Son(s) Family Medical History: No Reported History (Healthy) Medications and Allergies Home Medications Medication Instructions Recorded Confirmed Type Atenolol [Tenormin] 25 mg PO DAILY 09/17/14 06/09/18 History Famotidine [Pepcid] 20 mg PO BID 05/06/18 06/09/18 History Memantine [Namenda] 10 mg PO BID 05/06/18 06/09/18 History Pramipexole [Mirapex] 0.125 mg PO DAILY PRN 05/06/18 06/09/18 History Sertraline [Zoloft] 50 mg PO DAILY 05/06/18 06/09/18 History Clopidogrel [Plavix] 75 mg PO DAILY tab 05/16/18 06/09/18 Rx Nitroglycerin Sl Tabs [Nitrostat] 0.4 mg SUBLINGUAL Q5M PRN tab 05/16/18 Rx Donepezil [Aricept] 10 mg PO HS 06/09/18 06/09/18 History Pravastatin Sodium [Pravachol] 40 mg PO DAILY 06/09/18 06/09/18 History Acetaminophen Tab [Tylenol] 650 mg PO Q6HR tab 06/19/18 Rx Insulin Aspart [NovoLOG 0 unit SQ ACHS vial 06/19/18 Rx (formulary)] QUEtiapine [SEROquel] 12.5 mg PO HS tab 06/19/18 Rx Allergies Allergy/AdvReac Type Severity Reaction Status Date / Time Penicillins AdvReac Mild Unknown Verified 06/09/18 19:53 Physical Exam Vitals: Vital Signs Temp Pulse Pulse Resp BP Pulse Ox 06/25/18 12:04 98.2 F 80 16 137/67 96 06/25/18 05:00 98.1 F 95 16 126/70 95 06/24/18 22:22 16 06/24/18 21:00 98.1 F 88 16 140/56 95 Intake and Output 06/24/18 06/25/18 06/25/18 22:59 06:59 14:59 Intake Total 540 300 Output Total 1 Balance 539 300 Intake: Intake, IV Titration 300 Amount Sodium Chloride 0.9% 1, 300 000 ml @ 75 mls/hr IV . [id number] [facility] Rx#:[id number] Oral 240 300 Output: Stool 1 Other: Voiding Method Toilet Toilet Diaper Diaper Incontinent Incontinent # Voids 2 3 # Bowel Movements 3 Weight 76.9 kg 76.4 kg Results 06/25/18 10:44 06/25/18 10:44 CBC 06/25/18 Range/Units 10:44 WBC 9.5 (3.8-10.6) k/uL RBC 2.75 L (3.80-5.40) m/uL Hgb 8.5 L (11.4-16.0) gm/dL Hct 25.7 L (34.0-46.0) % Plt Count 253 (150-450) k/uL Comprehensive Metabolic Panel 06/25/18 Range/Units 10:44 Sodium 136 L (137-145) mmol/L Potassium 4.2 (3.5-5.1) mmol/L Chloride 110 H (98-107) mmol/L Carbon Dioxide 18 L (22-30) mmol/L BUN 14 (7-17) mg/dL Creatinine 1.04 (0.52-1.04) mg/dL Glucose 97 (74-99) mg/dL Calcium 8.3 L (8.4-10.2) mg/dL Current Medications Generic Name Dose Route Start Last Admin Trade Name Freq PRN Reason Stop Dose Admin Acetaminophen 650 mg 06/13/18 18:00 06/25/18 05:37 Tylenol Tab PO 650 mg Q6HR [facility]A Administration Atenolol 25 mg 06/10/18 09:00 06/25/18 09:42 Tenormin PO 25 mg DAILY [facility] Administration Clopidogrel Bisulfate 75 mg 06/10/18 09:00 06/25/18 09:42 Plavix PO 75 mg DAILY [facility] Administration Sodium Chloride 1,000 mls @ 75 mls/hr 06/22/18 09:00 06/25/18 04:41 Saline 0.9% IV Not Given .[id number] [facility] Insulin Aspart 0 unit 06/10/18 07:30 06/25/18 12:26 Novolog SQ Not Given ACHS [facility] Protocol Lorazepam 0.5 mg 06/11/18 13:41 06/22/18 11:08 Ativan IV 0.5 mg Q8HR PRN Administration Anxiety Memantine 10 mg 06/09/18 23:00 06/25/18 09:42 Namenda PO 10 mg BID [facility] Administration Nitroglycerin 0.4 mg 06/09/18 23:00 Nitrostat SUBLINGUAL Q5M PRN Chest Pain Ondansetron HCl 4 mg 06/09/18 21:23 06/10/18 10:11 Zofran IVP 4 mg Q6HR PRN Administration Nausea And Vomiting Pantoprazole Sodium 40 mg 06/14/18 07:30 06/25/18 09:42 Protonix PO 40 mg [id number] [facility] Administration Pramipexole Dihydrochloride 0.25 mg 06/13/18 13:02 06/25/18 09:42 Mirapex PO 0.25 mg DAILY [facility] Administration Pravastatin Sodium 40 mg 06/10/18 09:00 06/25/18 09:42 Pravachol PO 40 mg DAILY [facility] Administration Quetiapine Fumarate 12.5 mg 06/12/18 21:00 06/24/18 20:17 Seroquel PO 12.5 mg HS [facility] Administration Sertraline HCl 50 mg 06/10/18 09:00 06/25/18 09:43 Zoloft PO 50 mg DAILY [facility] Administration Intake and Output 06/24/18 06/25/18 06/25/18 22:59 06:59 14:59 Intake Total 540 300 Output Total 1 Balance 539 300 Intake: Intake, IV Titration 300 Amount Sodium Chloride 0.9% 1, 300 000 ml @ 75 mls/hr IV . [id number] [facility] Rx#:[id number] Oral 240 300 Output: Stool 1 Other: Voiding Method Toilet Toilet Diaper Diaper Incontinent Incontinent # Voids 2 3 # Bowel Movements 3 Weight 76.9 kg 76.4 kg 06/25/18 10:44 06/25/18 10:44
--- NOTE | 2018-06-25 14:44 | P.PN ---
Subjective Progress Note Date: 06/25/18 This is a 78-year-old pleasant female patient of Dr. Joshua Roper and Dr. Martinez underlying history of dementia, diabetes mellitus type 2, hypertension, hyperlipidemia, who is currently a very poor historian. He was last admitted on 05/07 for a prolonged hospital course and was treated for acute inferior wall STEMI involving the RCA requiring drug-eluting stent, patient also underwent cystoscopy for hematuria ending up having exploratory laparotomy with closure of bladder laceration post cystoscopy with history of bladder cancer which is newly diagnosed and eventually need radiation, hypertensive vascular disease, dysthymia, neurocognitive deficits with memory loss secondary to dementia comes in with gross hematuria and nausea and vomiting with increased weakness for the past 3-4 days. On evaluation patient denies having nausea or vomiting but does complain of stomach upset. She is very drowsy and falls back to sleep. No known evaluation of the blood work done in the ER , patient had a hemoglobin of 8.1 and leukocytosis 15.2, creatinine 1.58, BUN [address] head was done which was negative for acute changes chest x-ray negative for any acute changes. Urinalysis suggestive of more than 182 RBCs and WBCs 154. Vital signs assessed in the ER temp 99, blood pressure 100/80, pulse is 78. She does have a catheter patient was admitted for acute UTI, dehydration and gastroenteritis. Urology consult placed 06/11 patient examined at bedside oriented 1. Talked to the son in length about patient's ongoing hematuria. Urine cultures are still pending him continue levofloxacin for now. Patient continues to have vaginal bleeding. Dr. Martinez is of air and is planning to talk to radiation oncology and see if radiation could be started sooner. CT abdomen and pelvis was obtained that suggested right-sided hydronephrosis with bladder mass for him to 2 cm on the posterior wall of urinary bladder no ureteral calculus seen on the right side field pulmonary infiltrate and atelectasis is seen with the per pleural effusion. Chest x-ray 2 view will be obtained. Patient also had an episode of agitation in the morning with jitteriness in her arms and legs. One dose of Ativan was given. Hemoglobin improved to 8 after transfusion 06/12 patient has some confusion this morning. Hemoglobin has dropped to 7.[address] Rueda is taking patient for radiation today since there is no improvement in the hematuria. Due to patient's underlying dementia and increasing confusion will initiate patient on Seroquel low dose at bedtime. QT interval is normal will repeat EKG to assess for QT prolongation. Nurses instructed to minimize the use of Ativan needed. 06/13 patient continue has some confusion/delirium since she requires Ativan for agitation. Hemoglobin dropped to 6.1 this morning status post 1 unit PRBC. Patient is receiving radiation due to today followed by radiation tomorrow. Continues to have vaginal bleeding with clots. Patient is oriented 1. Continue CBC checked every 12. Patient complains of increased shakiness in the lower extremities increased Mirapex 2.25. Patient slept well on Seroquel 12.50 continue while patient of Hospital plan is to finish radiation therapy on Saturday with possible rehab unless patient decompressed and states will consider comfort care. Patient is too confused to contribute to physical therapy right now 06/14: Patient is resting in bed. Still having some confusion. Patient did pull out her IV early this morning by bringing her arm against the side. A new IV has been initiated. Her hemoglobin is at 8.2 at this time 1 unit of packed her blood cells given. Patient states that she had slept well last night she does want to get up on her own. Patient continues to be confused able to answer some questions appropriately. She is scheduled for radiation therapy today. 06/15: Patient is sitting up in a chair today. She still has some confusion able to answer some questions appropriately. Patient continues to have hematuria and vaginal bleeding. She was transfused in the night hemoglobin was 6.8. We will continue to monitor CBCs every 12 hours. Patient is scheduled for radiation therapy again on Saturday. She has completed her yesterday therapy without any complaints. 06/16: Patient is sitting up in a chair. Patient seems to have less confusion today able to answer questions appropriately. Patient knows where she is today compared to yesterday. However she still has some bouts of confusion during interview. Hemoglobin this morning was 7.0 we will continue to monitor. Patient denies any complaints at this time no chest pain, difficulty breathing, fever, or lightheadedness. Patient continues to have hematuria and vaginal bleeding. 06/17/18: Patient is resting comfortably in bed. Patient is alert to self only today. She is able to answer some questions with minimal confusion. Last night she had a hemoglobin of 6.6 her she received 2 units of packed red blood cells. Hemoglobin this morning was 9.4. Patient continues to have hematuria and vaginal bleeding. Patient denies any chest pain, difficulty breathing, fever or lightheadedness at this time. Patient is able to be up in her room with assistance. 12: Hemoglobin 7.6. Patient is status post a total of 6 units of packed RBCs transfusion during this hospitalization. Dr. Martinez will perform bedside cystoscopy tomorrow. Patient is scheduled for radiation treatment tomorrow and that should complete her course. Patient denies any complaints of pain. Patient is sitting up in a chair today. She remains pleasantly confused. Physical therapy has recommended subacute rehab. The son has agreed for [facility] and social work is following. 06/19: Patient completed radiation treatment this morning. Dr. Martinez is planning for cystoscopy this afternoon. Hemoglobin 7.3. Sodium 129, CO2 20, BUN 17 creatinine 1.07. Pulse ox is 98% on room air. 06/20: Patient underwent bedside cystoscopy with Dr. Martinez yesterday that found muscle invasive bladder cancer eroding the vagina causing persistent bleeding. This bleeding has not been adequately controlled by radiation. Dr. Martinez discussed case with radiation oncologist with plan for up to 10 radiation treatments and that most likely the bleeding would be controlled but for short term only. Dr. Martinez discussed with the son regarding returning to [facility] to consider cystectomy. If aggressive treatment such as cystectomy is not considered, patient is a hospice candidate. Repeat hemoglobin is 7.8 after 1 unit of packed RBCs for hemoglobin of 6.1 last evening. 06/21: Patient denies any new complaints. No change in plan at this time. Repeat lab work is pending. She is now total of 8 units of packed RBCs transfused. 06/22: Patient continues to have bleeding with urination including blood clots. Morning labs are not available. Blood sugars running between 137 and 182. Patient denies having any dizziness. She denies any abdominal cramps, abdominal pain, flank pain. IV fluids will be resumed 06/23: Patient underwent radiation treatment this morning with plan for repeat on Saturday and Saturday. Her hemoglobin this morning is 6.5 and has been ordered for transfusion of one unit of packed RBCs. Radiation oncology has recommended that if patient does not get improvement over the next 1-2 treatment still be necessary to discontinue Plavix. Aspirin his are been discontinued. 06/24: Repeat hemoglobin is 7.8 today. Patient is now status post total of 9 units of packed RBCs. She is undergone radiation treatment this morning. Await decision regarding Plavix. Most likely this will be discontinued. Telemetry will be discontinued. PT and OT to work with the patient. Per patient's son, there is surgery planned with her urologist at [facility] at the earliest time of July 07. 06/25: CODE STATUS discussed with the patient's son and he wishes patient to be a full code. Regarding Plavix, cardiology consult appreciated and Plavix will be discontinued. Dr. JORGE Block has discussed risk with the patient and her son. Patient has a follow-up appointment with [facility] on July 10. At this point , radiation treatment is completed and awaiting determination of patient's candidate for surgery at [facility]. Bleeding from bladder/vagina has decreased significantly today. She is ambulating with a walker and appears to be steady. Repeat hemoglobin this morning is 8.5. Sodium 136, potassium 4.2 , chloride 110, CO2 18, BUN 14 creatinine 1.04. IV fluids will be discontinued. Anticipate discharge in the next 24-48 hours. ROS Constitutional: Denies chills, Denies fever, Denies lethargy, Denies malaise, Denies poor appetite, reports weakness Eyes: denies decreased vision, denies diplopia, denies discharge, denies pain Ears: decreased hearing Ears, nose, mouth and throat: Denies dental pain, Denies headache, Denies nasal discharge, Denies nose pain Cardiovascular: Denies chest pain, Denies decreased exercise tolerance, Denies edema, Denies high blood pressure, Denies irregular heart beat, Denies palpitations, Denies paroxysmal nocturnal dyspnea, Denies rapid heart beat, Denies shortness of breath Respiratory: Denies congestion, Denies cough, Denies cough with sputum, Denies dyspnea, Denies home oxygen, Denies wheezing Gastrointestinal: Denies abdominal pain, Denies change in bowel habits, Denies coffee ground emesis, Denies early satiety, Denies excessive gas, Denies heartburn, Denies hematemesis, Denies hematochezia, Denies loss of appetite, Denies nausea, Denies vomiting Genitourinary: Reports hematuria and vaginal bleeding-improving, Denies dysuria , Denies flank pain, Denies kidney stones, Denies menorrhagia, Denies urgency, Denies urinary frequency Musculoskeletal: Denies gait dysfunction, Denies limitation of motion, Denies morning stiffness, Denies muscle cramps Integumentary: Denies rash, Denies wounds, Denies brittle nails, Denies change in hair/nails, Denies darkening of skin Neurological: Reports confusion, Denies balance difficulties, Denies change in speech, Denies double vision, Denies gait dysfunction, Denies loss of vision, Denies motor disturbance, Denies seizures Psychiatric: Denies anxiety, Denies depression Objective - Vital Signs Vital signs: Vital Signs Temp 98.1 F 06/25/18 05:00 Pulse 95 06/25/18 05:00 Resp 16 06/25/18 05:00 BP 126/70 06/25/18 05:00 Pulse Ox 95 06/25/18 05:00 Intake & Output 06/24/18 06/25/18 06/25/18 18:59 06:59 18:59 Intake Total 450 840 Output Total 1 Balance 450 839 Weight 76.4 kg Intake: Intake, IV Titration 450 300 Amount Sodium Chloride 0.9% 1, 450 300 000 ml @ 75 mls/hr IV . [id number] [facility] Rx#:[id number] Oral 540 Output: Stool 1 Other: Voiding Method Toilet Toilet Diaper Diaper Incontinent Incontinent # Voids 3 # Bowel Movements 3 - Exam General appearance: Present: average body habitus, cooperative, no acute distress while relating with walker in her room and sitting in recliner, patient 's son is at the bedside - EENT Eyes: Present: anicteric sclerae, EOMI, PERRLA ENT: Present: hearing grossly normal, NA/AT - Neck Neck: Present: normal ROM. Absent: lymphadenopathy - Respiratory Respiratory: bilateral: CTA, negative: diminished, dullness, rales, rhonchi, wheezing, prolonged expiration - Cardiovascular Rhythm: regular Heart sounds: normal: S1, S2 Abnormal Heart Sounds: Absent: systolic murmur, diastolic murmur, rub, S3 Gallop , S4 Gallop, click, other - Gastrointestinal General gastrointestinal: Present: normal bowel sounds, soft. Absent: organomegaly, tenderness Bloody urine and blood clots/vaginal bleeding. - Integumentary Integumentary: Present: normal turgor, pale - Neurologic Neurologic: Present: CNII-XII intact - Musculoskeletal Musculoskeletal: Present: generalized weakness - Psychiatric Psychiatric Comment(s): Alert to self. Answers her symptoms questions appropriately. - Labs CBC & Chem 7: 06/25/18 10:44 06/25/18 10:44 Labs: Abnormal Lab Results - Last 24 Hours (Table) 06/24/18 06/24/18 06/24/18 Range/Units 11:33 18:03 20:33 POC Glucose (mg/dL) 117 H 136 H 109 H (75-99) mg/dL 06/25/18 Range/Units 07:15 POC Glucose (mg/dL) 148 H (75-99) mg/dL Assessment and Plan Plan: 1. Gross hematuria and vaginal bleeding with acute blood loss anemia secondary to newly diagnosed bladder cancer. Status post transfusion of total 6 units packed RBCs. Consult with Dr. Martinez appreciated. Radiation oncology is following with radiation treatment scheduled. Patient had cystoscopy, evacuation of clot, transverse resection of bladder tumor, exploratory laparotomy with closure of bladder laceration in 04/2018. CT abd with new hydronephrosis on the right. I and O monitoring. Radiation treatment to continue. Dr. Martinez performed repeat cystoscopy, report above. There is plan for surgery at [facility] possibly at the end of this month sometime after July 07. 2. Acute inferior wall STEMI involving RCA requiring drug-eluting stent to 99% of stenosis down to 0% successful stenting, performed 05/06/2018 Dr. Marie patient currently is on Lipitor 80 mg daily, Tenormin 25 mg daily, Plavix discontinued. Cardiology consult appreciated. 3. Acute on Chronic blood loss anemia, status post total of 8 units of packed red blood cells. We'll continue to monitor hemoglobins daily. Transfused when the hemoglobin is less than 7. 4. Acute UTI with hematuria. Urine culture is negative no growth after 48 hours. Levofloxacin will be DC'd 5. Acute abdominal pain in the lower quadrant of the abdomen CT abdomen ordered with oral contrast no IV contrast needed to evaluate abdominal etiology. No diarrhea since patient's pain on the floor. 6. Neurocognitive deficits with memory loss, on Namenda 10 mg PAD, patient is not on any anticholinesterase medication. 7. Insomnia, schedule melatonin 6 mg at bedtime. 8. Hypertensive Vascular disease. Continue atenolol. 9. DVT prophylaxis, high risk known bladder cancer, with SCDs 10. Diabetes mellitus type 2 insulin requiring, uncontrolled with hypoglycemia. continue Lantus 35 units reduced from 55 units continue NovoLog scale, hemoglobin A1c is 7.0. 11. Acute kidney injury secondary to ATN/ dehydration secondary to hemodynamic instability with CKD stage III nephrotoxins will be avoided 12. Dysthymia, Zoloft 50 mg daily 13.Restless leg, on Mirapex 0. 25 mg daily when necessary, increase has helped with lower leg shaking. 14. Metabolic encephalopathy with underlying dementia likely secondary to delirium from being in the hospital. Patient was also anemic and have her infection contributing to the encephalopathy. Seroquel initiated 12.5 mg daily at bedtime. Son informed of the side effect of Seroquel of sudden being on the medication and agrees on continuing it for now 15. Moderate protein calorie malnutrition on Glucerna 3 times daily. CODE STATUS: Discussed CODE STATUS with the patient's son and patient is a full code Discharge plan: [facility] for subacute rehab in the next 24-48 hours. Impression and plan of care have been directed as dictated by the signing physician. Kylah Begum nurse practitioner acting as scribe for signing physician.
[2018-06-25 17:13] LABS: Glucose,Whole Blood 171 mg/dL (75-99)
--- NOTE | 2018-06-25 18:45 | ECHOF ---
Referral Reason:repeat after STEMI MEASUREMENTS -------- HEIGHT: 152.4 cm WEIGHT: 76.2 kg BP: RVIDd: 2.7 cm (< 3.3) IVSd: 1.4 cm (0.6 - 1.1) LVIDd: 3.3 cm (3.9 - 5.3) LVPWd: 1.7 cm (0.6 - 1.1) IVSs: 1.9 cm LVIDs: 1.1 cm LVPWs: 1.7 cm LAESV Index (A-L): 27.65 ml/m Ao Diam: 2.9 cm (2.0 - 3.7) AV Cusp: 1.7 cm (1.5 - 2.6) LA Diam: 3.9 cm (2.7 - 3.8) MV EXCURSION: 11.714 mm (> 18.000) MV EF SLOPE: 115 mm/s (70 - 150) EPSS: 0.2 cm MV E Evans: 1.04 m/s MV DecT: 131 ms MV A Evans: 1.27 m/s MV E/A Ratio: 0.82 RAP: 5.00 mmHg RVSP: 31.22 mmHg FINDINGS -------- Resting tachycardia (HR>100bpm). This was a technically good study. The left ventricular size is normal. There is moderate concentric left ventricular hypertrophy. O verall left ventricular systolic function is normal with, an EF between 55 - 60 %. Inferior basal H ypokinesis The right ventricle is normal in size and function. The left atrium is normal in size. The right atrium is normal in size. Aortic valve is trileaflet and is mildly thickened. The mitral valve leaflets are mildly thickened. Mild mitral regurgitation is present. Mild tricuspid regurgitation present. The right ventricular systolic pressure, as measured by Doppl er, is 31.22mmHg. Pulmonic valve appears structurally normal. The aortic root size is normal. IVC Not well visulized. There is a trivial pericardial effusion present. CONCLUSIONS -------- 1. Resting tachycardia (HR>100bpm). 2. This was a technically good study. 3. The left ventricular size is normal. 4. There is moderate concentric left ventricular hypertrophy. 5. Inferior basal Hypokinesis 6. The right ventricle is normal in size and function. 7. The left atrium is normal in size. 8. The right atrium is normal in size. 9. Aortic valve is trileaflet and is mildly thickened. 10. The mitral valve leaflets are mildly thickened. 11. Mild mitral regurgitation is present. 12. Mild tricuspid regurgitation present. 13. The right ventricular systolic pressure, as measured by Doppler, is 31.22mmHg. 14. Pulmonic valve appears structurally normal. 15. The aortic root size is normal. 16. IVC Not well visulized. 17. There is a trivial pericardial effusion present. SUPERVISOR/PORT DIRECTOR: Rocio Munoz RDCS
[2018-06-25 20:21] LABS: Glucose,Whole Blood 190 mg/dL (75-99)
[2018-06-25] MEDS: METOPROLOL TARTRATE 50 MG TAB PO SCH (21:19)
[2018-06-25] MEDS: QUEtiapine 25 MG TAB PO SCH (21:20)
[2018-06-26] MEDS: ACETAMINOPHEN TAB 325 MG TAB PO SCH ×4 (05:48→23:46)
[2018-06-26 07:06] LABS: Glucose,Whole Blood 125 mg/dL (75-99)
[2018-06-26 07:22] LABS: Anisocytosis Slight; HCT 21.9 % (34.0-46.0); Hypochromasia Moderate; MCH 30.6 pg (25.0-35.0); MCHC 31.4 g/dL (31.0-37.0); MCV 97.6 fL (80.0-100.0); Macrocytosis Slight; Mean Platelet Volume 6.1; Platelet Count 306 k/uL (150-450); Poikilocytosis Slight; RBC 2.25 m/uL (3.80-5.40); RDW 17.1 % (11.5-15.5); WBC 6.6 k/uL (3.8-10.6)
[2018-06-26 07:37] LABS: HGB 6.9 gm/dL (11.4-16.0)
[2018-06-26] MEDS: INSULIN ASPART 100 UNIT/ML 1 ML 10 ML VIAL SQ SCH ×4 (07:41→21:31)
[2018-06-26] MEDS: METOPROLOL TARTRATE 50 MG TAB PO SCH ×2 (08:31→21:32)
[2018-06-26] MEDS: PANTOPRAZOLE 40 MG TABLET PO SCH (08:31)
[2018-06-26] MEDS: PRAVASTATIN SODIUM 40 MG TAB PO SCH (08:31)
[2018-06-26] MEDS: PRAMIPEXOLE 0.25 MG TAB PO SCH (08:31)
[2018-06-26] MEDS: SERTRALINE 50 MG TAB PO SCH (08:31)
[2018-06-26] MEDS: MEMANTINE 10 MG TAB PO SCH ×2 (08:31→21:31)
[2018-06-26 11:29] LABS: Glucose,Whole Blood 171 mg/dL (75-99)
--- NOTE | 2018-06-26 12:21 | P.PN ---
Subjective Progress Note Date: 06/26/18 This is a 78-year-old pleasant female patient of Dr. Joshua Roper and Dr. Martinez underlying history of dementia, diabetes mellitus type 2, hypertension, hyperlipidemia, who is currently a very poor historian. He was last admitted on 05/07 for a prolonged hospital course and was treated for acute inferior wall STEMI involving the RCA requiring drug-eluting stent, patient also underwent cystoscopy for hematuria ending up having exploratory laparotomy with closure of bladder laceration post cystoscopy with history of bladder cancer which is newly diagnosed and eventually need radiation, hypertensive vascular disease, dysthymia, neurocognitive deficits with memory loss secondary to dementia comes in with gross hematuria and nausea and vomiting with increased weakness for the past 3-4 days. On evaluation patient denies having nausea or vomiting but does complain of stomach upset. She is very drowsy and falls back to sleep. No known evaluation of the blood work done in the ER , patient had a hemoglobin of 8.1 and leukocytosis 15.2, creatinine 1.58, BUN [address] head was done which was negative for acute changes chest x-ray negative for any acute changes. Urinalysis suggestive of more than 182 RBCs and WBCs 154. Vital signs assessed in the ER temp 99, blood pressure 100/80, pulse is 78. She does have a catheter patient was admitted for acute UTI, dehydration and gastroenteritis. Urology consult placed 06/11 patient examined at bedside oriented 1. Talked to the son in length about patient's ongoing hematuria. Urine cultures are still pending him continue levofloxacin for now. Patient continues to have vaginal bleeding. Dr. Martinez is of air and is planning to talk to radiation oncology and see if radiation could be started sooner. CT abdomen and pelvis was obtained that suggested right-sided hydronephrosis with bladder mass for him to 2 cm on the posterior wall of urinary bladder no ureteral calculus seen on the right side field pulmonary infiltrate and atelectasis is seen with the per pleural effusion. Chest x-ray 2 view will be obtained. Patient also had an episode of agitation in the morning with jitteriness in her arms and legs. One dose of Ativan was given. Hemoglobin improved to 8 after transfusion 06/12 patient has some confusion this morning. Hemoglobin has dropped to 7.[address] Rueda is taking patient for radiation today since there is no improvement in the hematuria. Due to patient's underlying dementia and increasing confusion will initiate patient on Seroquel low dose at bedtime. QT interval is normal will repeat EKG to assess for QT prolongation. Nurses instructed to minimize the use of Ativan needed. 06/13 patient continue has some confusion/delirium since she requires Ativan for agitation. Hemoglobin dropped to 6.1 this morning status post 1 unit PRBC. Patient is receiving radiation due to today followed by radiation tomorrow. Continues to have vaginal bleeding with clots. Patient is oriented 1. Continue CBC checked every 12. Patient complains of increased shakiness in the lower extremities increased Mirapex 2.25. Patient slept well on Seroquel 12.50 continue while patient of Hospital plan is to finish radiation therapy on Saturday with possible rehab unless patient decompressed and states will consider comfort care. Patient is too confused to contribute to physical therapy right now 06/14: Patient is resting in bed. Still having some confusion. Patient did pull out her IV early this morning by bringing her arm against the side. A new IV has been initiated. Her hemoglobin is at 8.2 at this time 1 unit of packed her blood cells given. Patient states that she had slept well last night she does want to get up on her own. Patient continues to be confused able to answer some questions appropriately. She is scheduled for radiation therapy today. 06/15: Patient is sitting up in a chair today. She still has some confusion able to answer some questions appropriately. Patient continues to have hematuria and vaginal bleeding. She was transfused in the night hemoglobin was 6.8. We will continue to monitor CBCs every 12 hours. Patient is scheduled for radiation therapy again on Saturday. She has completed her yesterday therapy without any complaints. 06/16: Patient is sitting up in a chair. Patient seems to have less confusion today able to answer questions appropriately. Patient knows where she is today compared to yesterday. However she still has some bouts of confusion during interview. Hemoglobin this morning was 7.0 we will continue to monitor. Patient denies any complaints at this time no chest pain, difficulty breathing, fever, or lightheadedness. Patient continues to have hematuria and vaginal bleeding. 06/17/18: Patient is resting comfortably in bed. Patient is alert to self only today. She is able to answer some questions with minimal confusion. Last night she had a hemoglobin of 6.6 her she received 2 units of packed red blood cells. Hemoglobin this morning was 9.4. Patient continues to have hematuria and vaginal bleeding. Patient denies any chest pain, difficulty breathing, fever or lightheadedness at this time. Patient is able to be up in her room with assistance. 12: Hemoglobin 7.6. Patient is status post a total of 6 units of packed RBCs transfusion during this hospitalization. Dr. Martinez will perform bedside cystoscopy tomorrow. Patient is scheduled for radiation treatment tomorrow and that should complete her course. Patient denies any complaints of pain. Patient is sitting up in a chair today. She remains pleasantly confused. Physical therapy has recommended subacute rehab. The son has agreed for [facility] and social work is following. 06/19: Patient completed radiation treatment this morning. Dr. Martinez is planning for cystoscopy this afternoon. Hemoglobin 7.3. Sodium 129, CO2 20, BUN 17 creatinine 1.07. Pulse ox is 98% on room air. 06/20: Patient underwent bedside cystoscopy with Dr. Martinez yesterday that found muscle invasive bladder cancer eroding the vagina causing persistent bleeding. This bleeding has not been adequately controlled by radiation. Dr. Martinez discussed case with radiation oncologist with plan for up to 10 radiation treatments and that most likely the bleeding would be controlled but for short term only. Dr. Martinez discussed with the son regarding returning to [facility] to consider cystectomy. If aggressive treatment such as cystectomy is not considered, patient is a hospice candidate. Repeat hemoglobin is 7.8 after 1 unit of packed RBCs for hemoglobin of 6.1 last evening. 06/21: Patient denies any new complaints. No change in plan at this time. Repeat lab work is pending. She is now total of 8 units of packed RBCs transfused. 06/22: Patient continues to have bleeding with urination including blood clots. Morning labs are not available. Blood sugars running between 137 and 182. Patient denies having any dizziness. She denies any abdominal cramps, abdominal pain, flank pain. IV fluids will be resumed 06/23: Patient underwent radiation treatment this morning with plan for repeat on Saturday and Saturday. Her hemoglobin this morning is 6.5 and has been ordered for transfusion of one unit of packed RBCs. Radiation oncology has recommended that if patient does not get improvement over the next 1-2 treatment still be necessary to discontinue Plavix. Aspirin his are been discontinued. 06/24: Repeat hemoglobin is 7.8 today. Patient is now status post total of 9 units of packed RBCs. She is undergone radiation treatment this morning. Await decision regarding Plavix. Most likely this will be discontinued. Telemetry will be discontinued. PT and OT to work with the patient. Per patient's son, there is surgery planned with her urologist at [facility] at the earliest time of July 07. 06/25: CODE STATUS discussed with the patient's son and he wishes patient to be a full code. Regarding Plavix, cardiology consult appreciated and Plavix will be discontinued. Dr. JORGE Block has discussed risk with the patient and her son. Patient has a follow-up appointment with [facility] on July 10. At this point , radiation treatment is completed and awaiting determination of patient's candidate for surgery at [facility]. Bleeding from bladder/vagina has decreased significantly today. She is ambulating with a walker and appears to be steady. Repeat hemoglobin this morning is 8.5. Sodium 136, potassium 4.2 , chloride 110, CO2 18, BUN 14 creatinine 1.04. IV fluids will be discontinued. Anticipate discharge in the next 24-48 hours. 06/26: Hemoglobin this morning is 6.9 patient will be ordered 1 unit of packed RBCs to be transfused today. She is now off aspirin and Plavix. She has had increased bleeding with blood clots this morning. Son is waiting for determination on Saturday from the surgeon at [facility] if patient can be sent therefore surgical intervention. Patient remains pleasantly confused without any complaints. According to nursing, patient has had a couple loose stools today. ROS Constitutional: Denies chills, Denies fever, Denies lethargy, Denies malaise, Denies poor appetite, reports weakness Eyes: denies decreased vision, denies diplopia, denies discharge, denies pain Ears: decreased hearing Ears, nose, mouth and throat: Denies dental pain, Denies headache, Denies nasal discharge, Denies nose pain Cardiovascular: Denies chest pain, Denies decreased exercise tolerance, Denies edema, Denies high blood pressure, Denies irregular heart beat, Denies palpitations, Denies paroxysmal nocturnal dyspnea, Denies rapid heart beat, Denies shortness of breath Respiratory: Denies congestion, Denies cough, Denies cough with sputum, Denies dyspnea, Denies home oxygen, Denies wheezing Gastrointestinal: Denies abdominal pain, Denies change in bowel habits, Denies coffee ground emesis, Denies early satiety, Denies excessive gas, Denies heartburn, Denies hematemesis, Denies hematochezia, Denies loss of appetite, Denies nausea, Denies vomiting Genitourinary: Reports hematuria and vaginal bleeding-improving, Denies dysuria , Denies flank pain, Denies kidney stones, Denies menorrhagia, Denies urgency, Denies urinary frequency Musculoskeletal: Denies gait dysfunction, Denies limitation of motion, Denies morning stiffness, Denies muscle cramps Integumentary: Denies rash, Denies wounds, Denies brittle nails, Denies change in hair/nails, Denies darkening of skin Neurological: Reports confusion, Denies balance difficulties, Denies change in speech, Denies double vision, Denies gait dysfunction, Denies loss of vision, Denies motor disturbance, Denies seizures Psychiatric: Denies anxiety, Denies depression Objective - Vital Signs Vital signs: Vital Signs Temp 97.7 F 06/26/18 05:00 Pulse 82 06/26/18 05:00 Resp 18 06/26/18 05:00 BP 131/73 06/26/18 05:00 Pulse Ox 93 L 06/26/18 05:00 Intake & Output 06/25/18 06/26/18 06/26/18 18:59 06:59 18:59 Intake Total 300 Output Total 1 Balance 299 Weight 26.5 kg Intake: Oral 300 Output: Stool 1 Other: Voiding Method Toilet Toilet Toilet Diaper Diaper Diaper Incontinent Incontinent Incontinent # Voids 5 # Bowel Movements 3 - Exam General appearance: Present: average body habitus, cooperative, no acute distress while in bed - EENT Eyes: Present: anicteric sclerae, EOMI, PERRLA ENT: Present: hearing grossly normal, NA/AT - Neck Neck: Present: normal ROM. Absent: lymphadenopathy - Respiratory Respiratory: bilateral: CTA, negative: diminished, dullness, rales, rhonchi, wheezing, prolonged expiration - Cardiovascular Rhythm: regular Heart sounds: normal: S1, S2 Abnormal Heart Sounds: Absent: systolic murmur, diastolic murmur, rub, S3 Gallop , S4 Gallop, click, other - Gastrointestinal General gastrointestinal: Present: normal bowel sounds, soft. Absent: organomegaly, tenderness Bloody urine and blood clots/vaginal bleeding. - Integumentary Integumentary: Present: normal turgor, pale - Neurologic Neurologic: Present: CNII-XII intact - Musculoskeletal Musculoskeletal: Present: generalized weakness - Psychiatric Psychiatric Comment(s): Alert to self. Answers her symptoms questions appropriately. - Labs CBC & Chem 7: 06/26/18 06:53 06/25/18 10:44 Labs: Abnormal Lab Results - Last 24 Hours (Table) 06/25/18 06/25/18 06/25/18 Range/Units 10:44 10:44 17:11 RBC 2.75 L (3.80-5.40) m/uL Hgb 8.5 L (11.4-16.0) gm/dL Hct 25.7 L (34.0-46.0) % RDW 16.6 H (11.5-15.5) % Lymphocytes # 0.8 L (1.0-4.8) k/uL Sodium 136 L (137-145) mmol/L Chloride 110 H (98-107) mmol/L Carbon Dioxide 18 L (22-30) mmol/L POC Glucose (mg/dL) 171 H (75-99) mg/dL Calcium 8.3 L (8.4-10.2) mg/dL 06/25/18 06/26/18 06/26/18 Range/Units 20:19 06:53 07:03 RBC 2.25 L (3.80-5.40) m/uL Hgb 6.9 L* D (11.4-16.0) gm/dL Hct 21.9 L (34.0-46.0) % RDW 17.1 H (11.5-15.5) % Lymphocytes # (1.0-4.8) k/uL Sodium (137-145) mmol/L Chloride (98-107) mmol/L Carbon Dioxide (22-30) mmol/L POC Glucose (mg/dL) 190 H 125 H (75-99) mg/dL Calcium (8.4-10.2) mg/dL Assessment and Plan Plan: 1. Gross hematuria and vaginal bleeding with acute blood loss anemia secondary to newly diagnosed bladder cancer. Status post transfusion of total 6 units packed RBCs. Consult with Dr. Martinez appreciated. Radiation oncology is following with radiation treatment scheduled. Patient had cystoscopy, evacuation of clot, transverse resection of bladder tumor, exploratory laparotomy with closure of bladder laceration in 04/2018. CT abd with new hydronephrosis on the right. I and O monitoring. Radiation treatment to continue. Dr. Martinez performed repeat cystoscopy, report above. There is plan for surgery at [facility] possibly at the end of this month sometime after July 07. 2. Acute inferior wall STEMI involving RCA requiring drug-eluting stent to 99% of stenosis down to 0% successful stenting, performed 05/06/2018 Dr. Marie patient currently is on Lipitor 80 mg daily, Tenormin 25 mg daily, Plavix discontinued. Cardiology consult appreciated. 3. Acute on Chronic blood loss anemia, status post total of 9 units of packed red blood cells. One unit ordered for today. 4. Acute UTI with hematuria. Urine culture is negative no growth after 48 hours. Levofloxacin will be DC'd 5. Acute abdominal pain in the lower quadrant of the abdomen CT abdomen ordered with oral contrast no IV contrast needed to evaluate abdominal etiology. No diarrhea since patient's pain on the floor. 6. Neurocognitive deficits with memory loss, on Namenda 10 mg PAD, patient is not on any anticholinesterase medication. 7. Insomnia, schedule melatonin 6 mg at bedtime. 8. Hypertensive Vascular disease. Continue atenolol. 9. DVT prophylaxis, high risk known bladder cancer, with SCDs 10. Diabetes mellitus type 2 insulin requiring, uncontrolled with hypoglycemia. continue Lantus 35 units reduced from 55 units continue NovoLog scale, hemoglobin A1c is 7.0. 11. Acute kidney injury secondary to ATN/ dehydration secondary to hemodynamic instability with CKD stage III nephrotoxins will be avoided 12. Dysthymia, Zoloft 50 mg daily 13.Restless leg, on Mirapex 0. 25 mg daily when necessary, increase has helped with lower leg shaking. 14. Metabolic encephalopathy with underlying dementia likely secondary to delirium from being in the hospital. Patient was also anemic and have her infection contributing to the encephalopathy. Seroquel initiated 12.5 mg daily at bedtime. Son informed of the side effect of Seroquel of sudden being on the medication and agrees on continuing it for now 15. Moderate protein calorie malnutrition on Glucerna 3 times daily. CODE STATUS: Discussed CODE STATUS with the patient's son and patient is a full code Discharge plan: [facility] for subacute rehab in the next 24-48 hours. Impression and plan of care have been directed as dictated by the signing physician. Kylah Begum nurse practitioner acting as scribe for signing physician.
--- NOTE | 2018-06-26 16:44 | P.PN ---
Subjective Progress Note Date: 06/26/18 Principal diagnosis: Bladder Cancer Hemoglobin had initially stabilized, but unfortunately continued to trend down. This morning is 6.9 patient will be ordered 1 unit of packed RBCs to be transfused today. She is now off aspirin and Plavix. She has had increased bleeding with blood clots this morning. She has completed her course of palliative radiation with no intention of restarting unless we are still unable to achieve bleeding control. Hopefully with the withdrawal of blood thinners stabilizes her hb. Huy her son continues to be in contact with Dr. Roberts in [place] for possible surgical intervention. We will continue to follow hb trends. Objective - Vital Signs Vital signs: Vital Signs Temp 97.8 F 06/26/18 13:46 Pulse 85 06/26/18 13:46 Resp 16 06/26/18 13:46 BP 123/68 06/26/18 13:46 Pulse Ox 96 06/26/18 11:13 Intake & Output 06/25/18 06/26/18 06/26/18 18:59 06:59 18:59 Intake Total 300 310 Output Total 1 Balance 299 310 Weight 26.5 kg 77.5 kg Intake: Oral 300 Blood Product 310 Rc As-1 Unit 310 [id number] Output: Stool 1 Other: Voiding Method Toilet Toilet Toilet Diaper Diaper Diaper Incontinent Incontinent Incontinent # Voids 5 4 # Bowel Movements 3 2 - Labs CBC & Chem 7: 06/26/18 06:53 06/25/18 10:44 Labs: Abnormal Lab Results - Last 24 Hours (Table) 06/23/18 06/25/18 06/25/18 Range/Units 09:39 17:11 20:19 RBC (3.80-5.40) m/uL Hgb (11.4-16.0) gm/dL Hct (34.0-46.0) % RDW (11.5-15.5) % POC Glucose (mg/dL) 171 H 190 H (75-99) mg/dL Crossmatch See Detail 06/26/18 06/26/18 06/26/18 Range/Units 06:53 07:03 11:27 RBC 2.25 L (3.80-5.40) m/uL Hgb 6.9 L* D (11.4-16.0) gm/dL Hct 21.9 L (34.0-46.0) % RDW 17.1 H (11.5-15.5) % POC Glucose (mg/dL) 125 H 171 H (75-99) mg/dL Crossmatch
[2018-06-26 17:10] LABS: Glucose,Whole Blood 174 mg/dL (75-99)
[2018-06-26 20:27] LABS: Glucose,Whole Blood 168 mg/dL (75-99)
[2018-06-26] MEDS: QUEtiapine 25 MG TAB PO SCH (21:31)
[2018-06-27] MEDS: ACETAMINOPHEN TAB 325 MG TAB PO SCH ×4 (05:56→23:42)
[2018-06-27 07:36] LABS: Glucose,Whole Blood 124 mg/dL (75-99)
[2018-06-27] MEDS: INSULIN ASPART 100 UNIT/ML 1 ML 10 ML VIAL SQ SCH ×4 (07:55→20:19)
[2018-06-27] MEDS: PRAMIPEXOLE 0.25 MG TAB PO SCH (08:10)
[2018-06-27] MEDS: SERTRALINE 50 MG TAB PO SCH (08:10)
[2018-06-27] MEDS: PANTOPRAZOLE 40 MG TABLET PO SCH (08:10)
[2018-06-27] MEDS: PRAVASTATIN SODIUM 40 MG TAB PO SCH (08:10)
[2018-06-27] MEDS: METOPROLOL TARTRATE 50 MG TAB PO SCH ×2 (08:10→19:44)
[2018-06-27] MEDS: MEMANTINE 10 MG TAB PO SCH ×2 (08:10→19:43)
[2018-06-27 08:15] LABS: Anisocytosis Slight; HCT 25.2 % (34.0-46.0); HGB 8.1 gm/dL (11.4-16.0); Hypochromasia Slight; MCH 30.6 pg (25.0-35.0); MCHC 32.2 g/dL (31.0-37.0); MCV 95.1 fL (80.0-100.0); Mean Platelet Volume 6.7; Platelet Count 286 k/uL (150-450); Poikilocytosis Slight; RBC 2.65 m/uL (3.80-5.40); RDW 16.3 % (11.5-15.5)
[2018-06-27 08:23] LABS: Calcium 7.7 mg/dL (8.4-10.2); Potassium 3.9 mmol/L (3.5-5.1)
[2018-06-27 11:37] LABS: Glucose,Whole Blood 199 mg/dL (75-99)
--- NOTE | 2018-06-27 12:41 | P.PN ---
Subjective Progress Note Date: 06/27/18 This is a 78-year-old pleasant female patient of Dr. Joshua Roper and Dr. Martinez underlying history of dementia, diabetes mellitus type 2, hypertension, hyperlipidemia, who is currently a very poor historian. He was last admitted on 05/07 for a prolonged hospital course and was treated for acute inferior wall STEMI involving the RCA requiring drug-eluting stent, patient also underwent cystoscopy for hematuria ending up having exploratory laparotomy with closure of bladder laceration post cystoscopy with history of bladder cancer which is newly diagnosed and eventually need radiation, hypertensive vascular disease, dysthymia, neurocognitive deficits with memory loss secondary to dementia comes in with gross hematuria and nausea and vomiting with increased weakness for the past 3-4 days. On evaluation patient denies having nausea or vomiting but does complain of stomach upset. She is very drowsy and falls back to sleep. No known evaluation of the blood work done in the ER , patient had a hemoglobin of 8.1 and leukocytosis 15.2, creatinine 1.58, BUN [address] head was done which was negative for acute changes chest x-ray negative for any acute changes. Urinalysis suggestive of more than 182 RBCs and WBCs 154. Vital signs assessed in the ER temp 99, blood pressure 100/80, pulse is 78. She does have a catheter patient was admitted for acute UTI, dehydration and gastroenteritis. Urology consult placed 06/11 patient examined at bedside oriented 1. Talked to the son in length about patient's ongoing hematuria. Urine cultures are still pending him continue levofloxacin for now. Patient continues to have vaginal bleeding. Dr. Martinez is of air and is planning to talk to radiation oncology and see if radiation could be started sooner. CT abdomen and pelvis was obtained that suggested right-sided hydronephrosis with bladder mass for him to 2 cm on the posterior wall of urinary bladder no ureteral calculus seen on the right side field pulmonary infiltrate and atelectasis is seen with the per pleural effusion. Chest x-ray 2 view will be obtained. Patient also had an episode of agitation in the morning with jitteriness in her arms and legs. One dose of Ativan was given. Hemoglobin improved to 8 after transfusion 06/12 patient has some confusion this morning. Hemoglobin has dropped to 7.[address] Rueda is taking patient for radiation today since there is no improvement in the hematuria. Due to patient's underlying dementia and increasing confusion will initiate patient on Seroquel low dose at bedtime. QT interval is normal will repeat EKG to assess for QT prolongation. Nurses instructed to minimize the use of Ativan needed. 06/13 patient continue has some confusion/delirium since she requires Ativan for agitation. Hemoglobin dropped to 6.1 this morning status post 1 unit PRBC. Patient is receiving radiation due to today followed by radiation tomorrow. Continues to have vaginal bleeding with clots. Patient is oriented 1. Continue CBC checked every 12. Patient complains of increased shakiness in the lower extremities increased Mirapex 2.25. Patient slept well on Seroquel 12.50 continue while patient of Hospital plan is to finish radiation therapy on Saturday with possible rehab unless patient decompressed and states will consider comfort care. Patient is too confused to contribute to physical therapy right now 06/14: Patient is resting in bed. Still having some confusion. Patient did pull out her IV early this morning by bringing her arm against the side. A new IV has been initiated. Her hemoglobin is at 8.2 at this time 1 unit of packed her blood cells given. Patient states that she had slept well last night she does want to get up on her own. Patient continues to be confused able to answer some questions appropriately. She is scheduled for radiation therapy today. 06/15: Patient is sitting up in a chair today. She still has some confusion able to answer some questions appropriately. Patient continues to have hematuria and vaginal bleeding. She was transfused in the night hemoglobin was 6.8. We will continue to monitor CBCs every 12 hours. Patient is scheduled for radiation therapy again on Saturday. She has completed her yesterday therapy without any complaints. 06/16: Patient is sitting up in a chair. Patient seems to have less confusion today able to answer questions appropriately. Patient knows where she is today compared to yesterday. However she still has some bouts of confusion during interview. Hemoglobin this morning was 7.0 we will continue to monitor. Patient denies any complaints at this time no chest pain, difficulty breathing, fever, or lightheadedness. Patient continues to have hematuria and vaginal bleeding. 06/17/18: Patient is resting comfortably in bed. Patient is alert to self only today. She is able to answer some questions with minimal confusion. Last night she had a hemoglobin of 6.6 her she received 2 units of packed red blood cells. Hemoglobin this morning was 9.4. Patient continues to have hematuria and vaginal bleeding. Patient denies any chest pain, difficulty breathing, fever or lightheadedness at this time. Patient is able to be up in her room with assistance. 12: Hemoglobin 7.6. Patient is status post a total of 6 units of packed RBCs transfusion during this hospitalization. Dr. Martinez will perform bedside cystoscopy tomorrow. Patient is scheduled for radiation treatment tomorrow and that should complete her course. Patient denies any complaints of pain. Patient is sitting up in a chair today. She remains pleasantly confused. Physical therapy has recommended subacute rehab. The son has agreed for [facility] and social work is following. 06/19: Patient completed radiation treatment this morning. Dr. Martinez is planning for cystoscopy this afternoon. Hemoglobin 7.3. Sodium 129, CO2 20, BUN 17 creatinine 1.07. Pulse ox is 98% on room air. 06/20: Patient underwent bedside cystoscopy with Dr. Martinez yesterday that found muscle invasive bladder cancer eroding the vagina causing persistent bleeding. This bleeding has not been adequately controlled by radiation. Dr. Martinez discussed case with radiation oncologist with plan for up to 10 radiation treatments and that most likely the bleeding would be controlled but for short term only. Dr. Martinez discussed with the son regarding returning to [facility] to consider cystectomy. If aggressive treatment such as cystectomy is not considered, patient is a hospice candidate. Repeat hemoglobin is 7.8 after 1 unit of packed RBCs for hemoglobin of 6.1 last evening. 06/21: Patient denies any new complaints. No change in plan at this time. Repeat lab work is pending. She is now total of 8 units of packed RBCs transfused. 06/22: Patient continues to have bleeding with urination including blood clots. Morning labs are not available. Blood sugars running between 137 and 182. Patient denies having any dizziness. She denies any abdominal cramps, abdominal pain, flank pain. IV fluids will be resumed 06/23: Patient underwent radiation treatment this morning with plan for repeat on Saturday and Saturday. Her hemoglobin this morning is 6.5 and has been ordered for transfusion of one unit of packed RBCs. Radiation oncology has recommended that if patient does not get improvement over the next 1-2 treatment still be necessary to discontinue Plavix. Aspirin his are been discontinued. 06/24: Repeat hemoglobin is 7.8 today. Patient is now status post total of 9 units of packed RBCs. She is undergone radiation treatment this morning. Await decision regarding Plavix. Most likely this will be discontinued. Telemetry will be discontinued. PT and OT to work with the patient. Per patient's son, there is surgery planned with her urologist at [facility] at the earliest time of July 07. 06/25: CODE STATUS discussed with the patient's son and he wishes patient to be a full code. Regarding Plavix, cardiology consult appreciated and Plavix will be discontinued. Dr. JORGE Block has discussed risk with the patient and her son. Patient has a follow-up appointment with [facility] on July 10. At this point , radiation treatment is completed and awaiting determination of patient's candidate for surgery at [facility]. Bleeding from bladder/vagina has decreased significantly today. She is ambulating with a walker and appears to be steady. Repeat hemoglobin this morning is 8.5. Sodium 136, potassium 4.2 , chloride 110, CO2 18, BUN 14 creatinine 1.04. IV fluids will be discontinued. Anticipate discharge in the next 24-48 hours. 06/26: Hemoglobin this morning is 6.9 patient will be ordered 1 unit of packed RBCs to be transfused today. She is now off aspirin and Plavix. She has had increased bleeding with blood clots this morning. Son is waiting for determination on Saturday from the surgeon at [facility] if patient can be sent therefore surgical intervention. Patient remains pleasantly confused without any complaints. According to nursing, patient has had a couple loose stools today. 06/27: Patient remains pleasantly confused. Patient is in a sitter at the bedside until her son arrived. Per the patient's son, he left a message with the surgeon at [facility] and is awaiting a call back. Hemoglobin is 8.1. She continues to have bladder/vaginal waiting with clots. Plan to monitor overnight. At this point, patient may not be a candidate for ECF as there is concern she'll continue to bleed and she is hospice care. Patient son may entertain hospice care at some point here in the near future. ROS Constitutional: Denies chills, Denies fever, Denies lethargy, Denies malaise, Denies poor appetite, reports weakness Eyes: denies decreased vision, denies diplopia, denies discharge, denies pain Ears: decreased hearing Ears, nose, mouth and throat: Denies dental pain, Denies headache, Denies nasal discharge, Denies nose pain Cardiovascular: Denies chest pain, Denies decreased exercise tolerance, Denies edema, Denies high blood pressure, Denies irregular heart beat, Denies palpitations, Denies paroxysmal nocturnal dyspnea, Denies rapid heart beat, Denies shortness of breath Respiratory: Denies congestion, Denies cough, Denies cough with sputum, Denies dyspnea, Denies home oxygen, Denies wheezing Gastrointestinal: Denies abdominal pain, Denies change in bowel habits, Denies coffee ground emesis, Denies early satiety, Denies excessive gas, Denies heartburn, Denies hematemesis, Denies hematochezia, Denies loss of appetite, Denies nausea, Denies vomiting Genitourinary: Reports hematuria and vaginal bleeding-improving, Denies dysuria , Denies flank pain, Denies kidney stones, Denies menorrhagia, Denies urgency, Denies urinary frequency Musculoskeletal: Denies gait dysfunction, Denies limitation of motion, Denies morning stiffness, Denies muscle cramps Integumentary: Denies rash, Denies wounds, Denies brittle nails, Denies change in hair/nails, Denies darkening of skin Neurological: Reports confusion, Denies balance difficulties, Denies change in speech, Denies double vision, Denies gait dysfunction, Denies loss of vision, Denies motor disturbance, Denies seizures Psychiatric: Denies anxiety, Denies depression Objective - Vital Signs Vital signs: Vital Signs Temp 98.0 F 06/27/18 05:00 Pulse 88 06/27/18 05:00 Resp 18 06/27/18 05:00 BP 104/55 06/27/18 05:00 Pulse Ox 94 L 06/27/18 05:00 Intake & Output 06/26/18 06/27/18 06/27/18 18:59 06:59 18:59 Intake Total 310 550 Output Total 1 Balance 310 549 Weight 77.5 kg 77.5 kg Intake: Oral 550 Blood Product 310 Rc As-1 Unit 310 [id number] Output: Stool 1 Other: Voiding Method Toilet Toilet Toilet Diaper Diaper Diaper Incontinent Incontinent Incontinent # Voids 1 10 # Bowel Movements 2 - Exam General appearance: Present: average body habitus, cooperative, no acute distress while in bed - EENT Eyes: Present: anicteric sclerae, EOMI, PERRLA ENT: Present: hearing grossly normal, NA/AT - Neck Neck: Present: normal ROM. Absent: lymphadenopathy - Respiratory Respiratory: bilateral: CTA, negative: diminished, dullness, rales, rhonchi, wheezing, prolonged expiration - Cardiovascular Rhythm: regular Heart sounds: normal: S1, S2 Abnormal Heart Sounds: Absent: systolic murmur, diastolic murmur, rub, S3 Gallop , S4 Gallop, click, other - Gastrointestinal General gastrointestinal: Present: normal bowel sounds, soft. Absent: organomegaly, tenderness Bloody urine and blood clots/vaginal bleeding. - Integumentary Integumentary: Present: normal turgor, pale - Neurologic Neurologic: Present: CNII-XII intact - Musculoskeletal Musculoskeletal: Present: generalized weakness - Psychiatric Psychiatric Comment(s): Alert to self. Answers her symptoms questions appropriately. - Labs CBC & Chem 7: 06/27/18 07:17 06/27/18 07:17 Labs: Abnormal Lab Results - Last 24 Hours (Table) 06/23/18 06/26/18 06/26/18 Range/Units 09:39 17:07 20:13 RBC (3.80-5.40) m/uL Hgb (11.4-16.0) gm/dL Hct (34.0-46.0) % RDW (11.5-15.5) % Sodium (137-145) mmol/L Chloride (98-107) mmol/L BUN (7-17) mg/dL Glucose (74-99) mg/dL POC Glucose (mg/dL) 174 H 168 H (75-99) mg/dL Calcium (8.4-10.2) mg/dL Crossmatch See Detail 06/27/18 06/27/18 06/27/18 Range/Units 07:17 07:17 07:34 RBC 2.65 L (3.80-5.40) m/uL Hgb 8.1 L (11.4-16.0) gm/dL Hct 25.2 L (34.0-46.0) % RDW 16.3 H (11.5-15.5) % Sodium 136 L (137-145) mmol/L Chloride 109 H (98-107) mmol/L BUN 21 H (7-17) mg/dL Glucose 111 H (74-99) mg/dL POC Glucose (mg/dL) 124 H (75-99) mg/dL Calcium 7.7 L (8.4-10.2) mg/dL Crossmatch 06/27/18 Range/Units 11:34 RBC (3.80-5.40) m/uL Hgb (11.4-16.0) gm/dL Hct (34.0-46.0) % RDW (11.5-15.5) % Sodium (137-145) mmol/L Chloride (98-107) mmol/L BUN (7-17) mg/dL Glucose (74-99) mg/dL POC Glucose (mg/dL) 199 H (75-99) mg/dL Calcium (8.4-10.2) mg/dL Crossmatch Assessment and Plan Plan: 1. Gross hematuria and vaginal bleeding with acute blood loss anemia secondary to newly diagnosed bladder cancer. Status post transfusion of total 6 units packed RBCs. Consult with Dr. Martinez appreciated. Radiation oncology is following with radiation treatment scheduled. Patient had cystoscopy, evacuation of clot, transverse resection of bladder tumor, exploratory laparotomy with closure of bladder laceration in 04/2018. CT abd with new hydronephrosis on the right. I and O monitoring. Radiation treatment to continue. Dr. Martinez performed repeat cystoscopy, report above. There is plan for surgery at [facility] depending on how patient progresses. Awaiting further determination from the surgeon. 2. Acute inferior wall STEMI involving RCA requiring drug-eluting stent to 99% of stenosis down to 0% successful stenting, performed 05/06/2018 Dr. Marie patient currently is on Lipitor 80 mg daily, Tenormin 25 mg daily, Plavix discontinued. Cardiology consult appreciated. 3. Acute on Chronic blood loss anemia, status post total of 9 units of packed red blood cells. One unit ordered for today. 4. Acute UTI with hematuria. Urine culture is negative no growth after 48 hours. Levofloxacin will be DC'd 5. Acute abdominal pain in the lower quadrant of the abdomen CT abdomen ordered with oral contrast no IV contrast needed to evaluate abdominal etiology. No diarrhea since patient's pain on the floor. 6. Neurocognitive deficits with memory loss, on Namenda 10 mg PAD, patient is not on any anticholinesterase medication. 7. Insomnia, schedule melatonin 6 mg at bedtime. 8. Hypertensive Vascular disease. Continue atenolol. 9. DVT prophylaxis, high risk known bladder cancer, with SCDs 10. Diabetes mellitus type 2 insulin requiring, uncontrolled with hypoglycemia. continue Lantus 35 units reduced from 55 units continue NovoLog scale, hemoglobin A1c is 7.0. 11. Acute kidney injury secondary to ATN/ dehydration secondary to hemodynamic instability with CKD stage III nephrotoxins will be avoided 12. Dysthymia, Zoloft 50 mg daily 13.Restless leg, on Mirapex 0. 25 mg daily when necessary, increase has helped with lower leg shaking. 14. Metabolic encephalopathy with underlying dementia likely secondary to delirium from being in the hospital. Patient was also anemic and have her infection contributing to the encephalopathy. Seroquel initiated 12.5 mg daily at bedtime. Son informed of the side effect of Seroquel of sudden being on the medication and agrees on continuing it for now 15. Moderate protein calorie malnutrition on Glucerna 3 times daily. CODE STATUS: Discussed CODE STATUS with the patient's son and patient is a full code Discharge plan: [facility] or other facility for subacute rehab in the next 24-48 hours. Impression and plan of care have been directed as dictated by the signing physician. Kylah Begum nurse practitioner acting as scribe for signing physician.
[2018-06-27 16:47] LABS: Glucose,Whole Blood 205 mg/dL (75-99)
[2018-06-27] MEDS: QUEtiapine 25 MG TAB PO SCH (19:43)
[2018-06-27 19:57] LABS: Glucose,Whole Blood 167 mg/dL (75-99)
[2018-06-27] MEDS: LORazepam 2 MG/ML INJ IV PRN (21:44)
[2018-06-28] MEDS: ACETAMINOPHEN TAB 325 MG TAB PO SCH ×4 (05:19→23:29)
[2018-06-28 07:10] LABS: Anisocytosis Slight; HCT 26.7 % (34.0-46.0); HGB 8.7 gm/dL (11.4-16.0); Hypochromasia Slight; MCH 30.8 pg (25.0-35.0); MCHC 32.6 g/dL (31.0-37.0); MCV 94.2 fL (80.0-100.0); Mean Platelet Volume 6.3; Platelet Count 321 k/uL (150-450); RBC 2.84 m/uL (3.80-5.40); RDW 16.4 % (11.5-15.5); WBC 8.3 k/uL (3.8-10.6)
[2018-06-28 07:26] LABS: Calcium 7.9 mg/dL (8.4-10.2); Potassium 3.8 mmol/L (3.5-5.1)
[2018-06-28 07:34] LABS: Glucose,Whole Blood 140 mg/dL (75-99)
[2018-06-28] MEDS: INSULIN ASPART 100 UNIT/ML 1 ML 10 ML VIAL SQ SCH ×4 (08:17→20:59)
[2018-06-28] MEDS: PANTOPRAZOLE 40 MG TABLET PO SCH (08:17)
[2018-06-28] MEDS: METOPROLOL TARTRATE 50 MG TAB PO SCH ×2 (08:17→20:04)
[2018-06-28] MEDS: PRAMIPEXOLE 0.25 MG TAB PO SCH (08:18)
[2018-06-28] MEDS: SERTRALINE 50 MG TAB PO SCH (08:18)
[2018-06-28] MEDS: MEMANTINE 10 MG TAB PO SCH ×2 (08:18→20:02)
[2018-06-28] MEDS: PRAVASTATIN SODIUM 40 MG TAB PO SCH (08:18)
--- NOTE | 2018-06-28 10:21 | P.PN ---
Subjective Progress Note Date: 06/28/18 This is a 78-year-old pleasant female patient of Dr. Joshua Roper and Dr. Martinez underlying history of dementia, diabetes mellitus type 2, hypertension, hyperlipidemia, who is currently a very poor historian. He was last admitted on 05/07 for a prolonged hospital course and was treated for acute inferior wall STEMI involving the RCA requiring drug-eluting stent, patient also underwent cystoscopy for hematuria ending up having exploratory laparotomy with closure of bladder laceration post cystoscopy with history of bladder cancer which is newly diagnosed and eventually need radiation, hypertensive vascular disease, dysthymia, neurocognitive deficits with memory loss secondary to dementia comes in with gross hematuria and nausea and vomiting with increased weakness for the past 3-4 days. On evaluation patient denies having nausea or vomiting but does complain of stomach upset. She is very drowsy and falls back to sleep. No known evaluation of the blood work done in the ER , patient had a hemoglobin of 8.1 and leukocytosis 15.2, creatinine 1.58, BUN [address] head was done which was negative for acute changes chest x-ray negative for any acute changes. Urinalysis suggestive of more than 182 RBCs and WBCs 154. Vital signs assessed in the ER temp 99, blood pressure 100/80, pulse is 78. She does have a catheter patient was admitted for acute UTI, dehydration and gastroenteritis. Urology consult placed 06/11 patient examined at bedside oriented 1. Talked to the son in length about patient's ongoing hematuria. Urine cultures are still pending him continue levofloxacin for now. Patient continues to have vaginal bleeding. Dr. Martinez is of air and is planning to talk to radiation oncology and see if radiation could be started sooner. CT abdomen and pelvis was obtained that suggested right-sided hydronephrosis with bladder mass for him to 2 cm on the posterior wall of urinary bladder no ureteral calculus seen on the right side field pulmonary infiltrate and atelectasis is seen with the per pleural effusion. Chest x-ray 2 view will be obtained. Patient also had an episode of agitation in the morning with jitteriness in her arms and legs. One dose of Ativan was given. Hemoglobin improved to 8 after transfusion 06/12 patient has some confusion this morning. Hemoglobin has dropped to 7.[address] Rueda is taking patient for radiation today since there is no improvement in the hematuria. Due to patient's underlying dementia and increasing confusion will initiate patient on Seroquel low dose at bedtime. QT interval is normal will repeat EKG to assess for QT prolongation. Nurses instructed to minimize the use of Ativan needed. 06/13 patient continue has some confusion/delirium since she requires Ativan for agitation. Hemoglobin dropped to 6.1 this morning status post 1 unit PRBC. Patient is receiving radiation due to today followed by radiation tomorrow. Continues to have vaginal bleeding with clots. Patient is oriented 1. Continue CBC checked every 12. Patient complains of increased shakiness in the lower extremities increased Mirapex 2.25. Patient slept well on Seroquel 12.50 continue while patient of Hospital plan is to finish radiation therapy on Saturday with possible rehab unless patient decompressed and states will consider comfort care. Patient is too confused to contribute to physical therapy right now 06/14: Patient is resting in bed. Still having some confusion. Patient did pull out her IV early this morning by bringing her arm against the side. A new IV has been initiated. Her hemoglobin is at 8.2 at this time 1 unit of packed her blood cells given. Patient states that she had slept well last night she does want to get up on her own. Patient continues to be confused able to answer some questions appropriately. She is scheduled for radiation therapy today. 06/15: Patient is sitting up in a chair today. She still has some confusion able to answer some questions appropriately. Patient continues to have hematuria and vaginal bleeding. She was transfused in the night hemoglobin was 6.8. We will continue to monitor CBCs every 12 hours. Patient is scheduled for radiation therapy again on Saturday. She has completed her yesterday therapy without any complaints. 06/16: Patient is sitting up in a chair. Patient seems to have less confusion today able to answer questions appropriately. Patient knows where she is today compared to yesterday. However she still has some bouts of confusion during interview. Hemoglobin this morning was 7.0 we will continue to monitor. Patient denies any complaints at this time no chest pain, difficulty breathing, fever, or lightheadedness. Patient continues to have hematuria and vaginal bleeding. 06/17/18: Patient is resting comfortably in bed. Patient is alert to self only today. She is able to answer some questions with minimal confusion. Last night she had a hemoglobin of 6.6 her she received 2 units of packed red blood cells. Hemoglobin this morning was 9.4. Patient continues to have hematuria and vaginal bleeding. Patient denies any chest pain, difficulty breathing, fever or lightheadedness at this time. Patient is able to be up in her room with assistance. 12: Hemoglobin 7.6. Patient is status post a total of 6 units of packed RBCs transfusion during this hospitalization. Dr. Martinez will perform bedside cystoscopy tomorrow. Patient is scheduled for radiation treatment tomorrow and that should complete her course. Patient denies any complaints of pain. Patient is sitting up in a chair today. She remains pleasantly confused. Physical therapy has recommended subacute rehab. The son has agreed for [facility] and social work is following. 06/19: Patient completed radiation treatment this morning. Dr. Martinez is planning for cystoscopy this afternoon. Hemoglobin 7.3. Sodium 129, CO2 20, BUN 17 creatinine 1.07. Pulse ox is 98% on room air. 06/20: Patient underwent bedside cystoscopy with Dr. Martinez yesterday that found muscle invasive bladder cancer eroding the vagina causing persistent bleeding. This bleeding has not been adequately controlled by radiation. Dr. Martinez discussed case with radiation oncologist with plan for up to 10 radiation treatments and that most likely the bleeding would be controlled but for short term only. Dr. Martinez discussed with the son regarding returning to [facility] to consider cystectomy. If aggressive treatment such as cystectomy is not considered, patient is a hospice candidate. Repeat hemoglobin is 7.8 after 1 unit of packed RBCs for hemoglobin of 6.1 last evening. 06/21: Patient denies any new complaints. No change in plan at this time. Repeat lab work is pending. She is now total of 8 units of packed RBCs transfused. 06/22: Patient continues to have bleeding with urination including blood clots. Morning labs are not available. Blood sugars running between 137 and 182. Patient denies having any dizziness. She denies any abdominal cramps, abdominal pain, flank pain. IV fluids will be resumed 06/23: Patient underwent radiation treatment this morning with plan for repeat on Saturday and Saturday. Her hemoglobin this morning is 6.5 and has been ordered for transfusion of one unit of packed RBCs. Radiation oncology has recommended that if patient does not get improvement over the next 1-2 treatment still be necessary to discontinue Plavix. Aspirin his are been discontinued. 06/24: Repeat hemoglobin is 7.8 today. Patient is now status post total of 9 units of packed RBCs. She is undergone radiation treatment this morning. Await decision regarding Plavix. Most likely this will be discontinued. Telemetry will be discontinued. PT and OT to work with the patient. Per patient's son, there is surgery planned with her urologist at [facility] at the earliest time of July 07. 06/25: CODE STATUS discussed with the patient's son and he wishes patient to be a full code. Regarding Plavix, cardiology consult appreciated and Plavix will be discontinued. Dr. JORGE Block has discussed risk with the patient and her son. Patient has a follow-up appointment with [facility] on July 10. At this point , radiation treatment is completed and awaiting determination of patient's candidate for surgery at [facility]. Bleeding from bladder/vagina has decreased significantly today. She is ambulating with a walker and appears to be steady. Repeat hemoglobin this morning is 8.5. Sodium 136, potassium 4.2 , chloride 110, CO2 18, BUN 14 creatinine 1.04. IV fluids will be discontinued. Anticipate discharge in the next 24-48 hours. 06/26: Hemoglobin this morning is 6.9 patient will be ordered 1 unit of packed RBCs to be transfused today. She is now off aspirin and Plavix. She has had increased bleeding with blood clots this morning. Son is waiting for determination on Saturday from the surgeon at [facility] if patient can be sent therefore surgical intervention. Patient remains pleasantly confused without any complaints. According to nursing, patient has had a couple loose stools today. 06/27: Patient remains pleasantly confused. Patient is in a sitter at the bedside until her son arrived. Per the patient's son, he left a message with the surgeon at [facility] and is awaiting a call back. Hemoglobin is 8.1. She continues to have bladder/vaginal waiting with clots. Plan to monitor overnight. At this point, patient may not be a candidate for ECF as there is concern she'll continue to bleed and she is hospice care. Patient son may entertain hospice care at some point here in the near future. 06/28: Patient is sleeping in bed apparently she did not sleep much during the night. Patient is normally sitting up in a chair and is active. Hemoglobin today is 8.7. Patient has been off Plavix since June 26. Ammonia level will be checked. Otherwise electrolytes are essentially normal. Blood sugars running between 140 and 205. She has been afebrile, pulse ox 94% on room air, heart rate ran between 96 and 113. No update from the patient's son regarding plan at [facility]. ROS: Not obtained due to patient's mental status Objective - Vital Signs Vital signs: Vital Signs Temp 97.6 F 06/28/18 04:58 Pulse 113 H 06/28/18 04:58 Resp 16 06/28/18 04:58 BP 133/60 06/28/18 04:58 Pulse Ox 94 L 06/28/18 04:58 Intake & Output 06/27/18 06/28/18 06/28/18 18:59 06:59 18:59 Intake Total 1430 Output Total 1 Balance 1429 Weight 76.5 kg Intake: Oral 1430 Output: Stool 1 Other: Voiding Method Toilet Toilet Diaper Diaper Incontinent Incontinent # Voids 8 11 # Bowel Movements 1 1 - Exam General appearance: Present: average body habitus, cooperative, no acute distress while in bed. Patient is sleeping and somewhat lethargic today - EENT Eyes: Present: anicteric sclerae, EOMI, PERRLA ENT: Present: hearing grossly normal, NA/AT - Neck Neck: Present: normal ROM. Absent: lymphadenopathy - Respiratory Respiratory: bilateral: CTA, negative: diminished, dullness, rales, rhonchi, wheezing, prolonged expiration - Cardiovascular Rhythm: regular Heart sounds: normal: S1, S2 Abnormal Heart Sounds: Absent: systolic murmur, diastolic murmur, rub, S3 Gallop , S4 Gallop, click, other - Gastrointestinal General gastrointestinal: Present: normal bowel sounds, soft. Absent: organomegaly, tenderness Bloody urine and blood clots/vaginal bleeding. - Integumentary Integumentary: Present: normal turgor, pale - Neurologic Neurologic: Present: CNII-XII intact - Musculoskeletal Musculoskeletal: Present: generalized weakness - Psychiatric Psychiatric Comment(s): Alert to self. Answers her symptoms questions appropriately. - Labs CBC & Chem 7: 06/28/18 06:31 06/28/18 06:31 Labs: Abnormal Lab Results - Last 24 Hours (Table) 06/27/18 06/27/18 06/27/18 Range/Units 07:17 07:17 11:34 RBC 2.65 L (3.80-5.40) m/uL Hgb 8.1 L (11.4-16.0) gm/dL Hct 25.2 L (34.0-46.0) % RDW 16.3 H (11.5-15.5) % Sodium 136 L (137-145) mmol/L Chloride 109 H (98-107) mmol/L BUN 21 H (7-17) mg/dL Glucose 111 H (74-99) mg/dL POC Glucose (mg/dL) 199 H (75-99) mg/dL Calcium 7.7 L (8.4-10.2) mg/dL 06/27/18 06/27/18 06/28/18 Range/Units 16:46 19:56 06:31 RBC 2.84 L (3.80-5.40) m/uL Hgb 8.7 L (11.4-16.0) gm/dL Hct 26.7 L (34.0-46.0) % RDW 16.4 H (11.5-15.5) % Sodium (137-145) mmol/L Chloride (98-107) mmol/L BUN (7-17) mg/dL Glucose (74-99) mg/dL POC Glucose (mg/dL) 205 H 167 H (75-99) mg/dL Calcium (8.4-10.2) mg/dL 06/28/18 06/28/18 Range/Units 06:31 07:31 RBC (3.80-5.40) m/uL Hgb (11.4-16.0) gm/dL Hct (34.0-46.0) % RDW (11.5-15.5) % Sodium (137-145) mmol/L Chloride 108 H (98-107) mmol/L BUN 23 H (7-17) mg/dL Glucose 144 H (74-99) mg/dL POC Glucose (mg/dL) 140 H (75-99) mg/dL Calcium 7.9 L (8.4-10.2) mg/dL Assessment and Plan Plan: 1. Gross hematuria and vaginal bleeding with acute blood loss anemia secondary to newly diagnosed bladder cancer. Status post transfusion of total 6 units packed RBCs. Consult with Dr. Martinez appreciated. Radiation oncology is following with radiation treatment scheduled. Patient had cystoscopy, evacuation of clot, transverse resection of bladder tumor, exploratory laparotomy with closure of bladder laceration in 04/2018. CT abd with new hydronephrosis on the right. I and O monitoring. Radiation treatment to continue. Dr. Martinez performed repeat cystoscopy, report above. There is plan for surgery at [facility] depending on how patient progresses. Awaiting further determination from the surgeon at [facility]. 2. Acute inferior wall STEMI involving RCA requiring drug-eluting stent to 99% of stenosis down to 0% successful stenting, performed 05/06/2018 Dr. Marie patient currently is on Lipitor 80 mg daily, Tenormin 25 mg daily, Plavix discontinued. Cardiology consult appreciated. 3. Acute on Chronic blood loss anemia, status post total of 9 units of packed red blood cells. One unit ordered for today. 4. Acute UTI with hematuria. Urine culture is negative no growth after 48 hours. Levofloxacin will be DC'd 5. Acute abdominal pain in the lower quadrant of the abdomen CT abdomen ordered with oral contrast no IV contrast needed to evaluate abdominal etiology. No diarrhea since patient's pain on the floor. 6. Neurocognitive deficits with memory loss, on Namenda 10 mg PAD, patient is not on any anticholinesterase medication. 7. Insomnia, schedule melatonin 6 mg at bedtime. 8. Hypertensive Vascular disease. Continue atenolol. 9. DVT prophylaxis, high risk known bladder cancer, with SCDs 10. Diabetes mellitus type 2 insulin requiring, uncontrolled with hypoglycemia. continue Lantus 35 units reduced from 55 units continue NovoLog scale, hemoglobin A1c is 7.0. 11. Acute kidney injury secondary to ATN/ dehydration secondary to hemodynamic instability with CKD stage III nephrotoxins will be avoided 12. Dysthymia, Zoloft 50 mg daily 13.Restless leg, on Mirapex 0. 25 mg daily when necessary, increase has helped with lower leg shaking. 14. Metabolic encephalopathy with underlying dementia likely secondary to delirium from being in the hospital. Patient was also anemic and have her infection contributing to the encephalopathy. Seroquel initiated 12.5 mg daily at bedtime. Son informed of the side effect of Seroquel of sudden being on the medication and agrees on continuing it for now 15. Moderate protein calorie malnutrition on Glucerna 3 times daily. CODE STATUS: Discussed CODE STATUS with the patient's son and patient is a full code [facility] other facility for [facility]acute rehab in the next 24-48 hours. Impression and plan of care have been directed as dictated by the signing physician. Kylah Begum nurse practitioner acting as scribe for signing physician.
[2018-06-28 12:03] LABS: Glucose,Whole Blood 150 mg/dL (75-99)
[2018-06-28 17:16] LABS: Glucose,Whole Blood 188 mg/dL (75-99)
[2018-06-28] MEDS: QUEtiapine 25 MG TAB PO SCH (20:03)
[2018-06-28 20:28] LABS: Glucose,Whole Blood 173 mg/dL (75-99)
[2018-06-29] MEDS: ACETAMINOPHEN TAB 325 MG TAB PO SCH ×4 (05:22→23:47)
[2018-06-29 08:06] LABS: Anisocytosis Slight; HCT 25.6 % (34.0-46.0); HGB 8.3 gm/dL (11.4-16.0); Hypochromasia Slight; MCH 30.7 pg (25.0-35.0); MCHC 32.4 g/dL (31.0-37.0); MCV 94.8 fL (80.0-100.0); Mean Platelet Volume 6.4; Platelet Count 312 k/uL (150-450); RBC 2.71 m/uL (3.80-5.40); RDW 16.5 % (11.5-15.5); WBC 7.1 k/uL (3.8-10.6)
[2018-06-29 08:39] LABS: Glucose,Whole Blood 135 mg/dL (75-99)
[2018-06-29] MEDS: INSULIN ASPART 100 UNIT/ML 1 ML 10 ML VIAL SQ SCH ×4 (08:41→20:17)
[2018-06-29] MEDS: PRAVASTATIN SODIUM 40 MG TAB PO SCH (08:43)
[2018-06-29] MEDS: MEMANTINE 10 MG TAB PO SCH ×2 (08:43→20:17)
[2018-06-29] MEDS: PRAMIPEXOLE 0.25 MG TAB PO SCH (08:44)
[2018-06-29] MEDS: METOPROLOL TARTRATE 50 MG TAB PO SCH ×2 (08:44→20:16)
[2018-06-29] MEDS: PANTOPRAZOLE 40 MG TABLET PO SCH (08:44)
[2018-06-29] MEDS: SERTRALINE 50 MG TAB PO SCH (08:44)
[2018-06-29] MEDS ORDERED: SODIUM FERRIC GLUCONAT-SUCROSE 125 MG in SODIUM CHLORIDE 0.9% 100 ML IVPB ONE (08:56)
--- NOTE | 2018-06-29 10:11 | P.PN ---
Subjective Progress Note Date: 06/29/18 This is a 78-year-old pleasant female patient of Dr. Joshua Roper and Dr. Martinez underlying history of dementia, diabetes mellitus type 2, hypertension, hyperlipidemia, who is currently a very poor historian. He was last admitted on 05/07 for a prolonged hospital course and was treated for acute inferior wall STEMI involving the RCA requiring drug-eluting stent, patient also underwent cystoscopy for hematuria ending up having exploratory laparotomy with closure of bladder laceration post cystoscopy with history of bladder cancer which is newly diagnosed and eventually need radiation, hypertensive vascular disease, dysthymia, neurocognitive deficits with memory loss secondary to dementia comes in with gross hematuria and nausea and vomiting with increased weakness for the past 3-4 days. On evaluation patient denies having nausea or vomiting but does complain of stomach upset. She is very drowsy and falls back to sleep. No known evaluation of the blood work done in the ER , patient had a hemoglobin of 8.1 and leukocytosis 15.2, creatinine 1.58, BUN [address] head was done which was negative for acute changes chest x-ray negative for any acute changes. Urinalysis suggestive of more than 182 RBCs and WBCs 154. Vital signs assessed in the ER temp 99, blood pressure 100/80, pulse is 78. She does have a catheter patient was admitted for acute UTI, dehydration and gastroenteritis. Urology consult placed 06/11 patient examined at bedside oriented 1. Talked to the son in length about patient's ongoing hematuria. Urine cultures are still pending him continue levofloxacin for now. Patient continues to have vaginal bleeding. Dr. Martinez is of air and is planning to talk to radiation oncology and see if radiation could be started sooner. CT abdomen and pelvis was obtained that suggested right-sided hydronephrosis with bladder mass for him to 2 cm on the posterior wall of urinary bladder no ureteral calculus seen on the right side field pulmonary infiltrate and atelectasis is seen with the per pleural effusion. Chest x-ray 2 view will be obtained. Patient also had an episode of agitation in the morning with jitteriness in her arms and legs. One dose of Ativan was given. Hemoglobin improved to 8 after transfusion 06/12 patient has some confusion this morning. Hemoglobin has dropped to 7.[address] Rueda is taking patient for radiation today since there is no improvement in the hematuria. Due to patient's underlying dementia and increasing confusion will initiate patient on Seroquel low dose at bedtime. QT interval is normal will repeat EKG to assess for QT prolongation. Nurses instructed to minimize the use of Ativan needed. 06/13 patient continue has some confusion/delirium since she requires Ativan for agitation. Hemoglobin dropped to 6.1 this morning status post 1 unit PRBC. Patient is receiving radiation due to today followed by radiation tomorrow. Continues to have vaginal bleeding with clots. Patient is oriented 1. Continue CBC checked every 12. Patient complains of increased shakiness in the lower extremities increased Mirapex 2.25. Patient slept well on Seroquel 12.50 continue while patient of Hospital plan is to finish radiation therapy on Saturday with possible rehab unless patient decompressed and states will consider comfort care. Patient is too confused to contribute to physical therapy right now 06/14: Patient is resting in bed. Still having some confusion. Patient did pull out her IV early this morning by bringing her arm against the side. A new IV has been initiated. Her hemoglobin is at 8.2 at this time 1 unit of packed her blood cells given. Patient states that she had slept well last night she does want to get up on her own. Patient continues to be confused able to answer some questions appropriately. She is scheduled for radiation therapy today. 06/15: Patient is sitting up in a chair today. She still has some confusion able to answer some questions appropriately. Patient continues to have hematuria and vaginal bleeding. She was transfused in the night hemoglobin was 6.8. We will continue to monitor CBCs every 12 hours. Patient is scheduled for radiation therapy again on Saturday. She has completed her yesterday therapy without any complaints. 06/16: Patient is sitting up in a chair. Patient seems to have less confusion today able to answer questions appropriately. Patient knows where she is today compared to yesterday. However she still has some bouts of confusion during interview. Hemoglobin this morning was 7.0 we will continue to monitor. Patient denies any complaints at this time no chest pain, difficulty breathing, fever, or lightheadedness. Patient continues to have hematuria and vaginal bleeding. 06/17/18: Patient is resting comfortably in bed. Patient is alert to self only today. She is able to answer some questions with minimal confusion. Last night she had a hemoglobin of 6.6 her she received 2 units of packed red blood cells. Hemoglobin this morning was 9.4. Patient continues to have hematuria and vaginal bleeding. Patient denies any chest pain, difficulty breathing, fever or lightheadedness at this time. Patient is able to be up in her room with assistance. 12: Hemoglobin 7.6. Patient is status post a total of 6 units of packed RBCs transfusion during this hospitalization. Dr. Martinez will perform bedside cystoscopy tomorrow. Patient is scheduled for radiation treatment tomorrow and that should complete her course. Patient denies any complaints of pain. Patient is sitting up in a chair today. She remains pleasantly confused. Physical therapy has recommended subacute rehab. The son has agreed for [facility] and social work is following. 06/19: Patient completed radiation treatment this morning. Dr. Martinez is planning for cystoscopy this afternoon. Hemoglobin 7.3. Sodium 129, CO2 20, BUN 17 creatinine 1.07. Pulse ox is 98% on room air. 06/20: Patient underwent bedside cystoscopy with Dr. Martinez yesterday that found muscle invasive bladder cancer eroding the vagina causing persistent bleeding. This bleeding has not been adequately controlled by radiation. Dr. Martinez discussed case with radiation oncologist with plan for up to 10 radiation treatments and that most likely the bleeding would be controlled but for short term only. Dr. Martinez discussed with the son regarding returning to [facility] to consider cystectomy. If aggressive treatment such as cystectomy is not considered, patient is a hospice candidate. Repeat hemoglobin is 7.8 after 1 unit of packed RBCs for hemoglobin of 6.1 last evening. 06/21: Patient denies any new complaints. No change in plan at this time. Repeat lab work is pending. She is now total of 8 units of packed RBCs transfused. 06/22: Patient continues to have bleeding with urination including blood clots. Morning labs are not available. Blood sugars running between 137 and 182. Patient denies having any dizziness. She denies any abdominal cramps, abdominal pain, flank pain. IV fluids will be resumed 06/23: Patient underwent radiation treatment this morning with plan for repeat on Saturday and Saturday. Her hemoglobin this morning is 6.5 and has been ordered for transfusion of one unit of packed RBCs. Radiation oncology has recommended that if patient does not get improvement over the next 1-2 treatment still be necessary to discontinue Plavix. Aspirin his are been discontinued. 06/24: Repeat hemoglobin is 7.8 today. Patient is now status post total of 9 units of packed RBCs. She is undergone radiation treatment this morning. Await decision regarding Plavix. Most likely this will be discontinued. Telemetry will be discontinued. PT and OT to work with the patient. Per patient's son, there is surgery planned with her urologist at [facility] at the earliest time of July 07. 06/25: CODE STATUS discussed with the patient's son and he wishes patient to be a full code. Regarding Plavix, cardiology consult appreciated and Plavix will be discontinued. Dr. JORGE Block has discussed risk with the patient and her son. Patient has a follow-up appointment with [facility] on July 10. At this point , radiation treatment is completed and awaiting determination of patient's candidate for surgery at [facility]. Bleeding from bladder/vagina has decreased significantly today. She is ambulating with a walker and appears to be steady. Repeat hemoglobin this morning is 8.5. Sodium 136, potassium 4.2 , chloride 110, CO2 18, BUN 14 creatinine 1.04. IV fluids will be discontinued. Anticipate discharge in the next 24-48 hours. 06/26: Hemoglobin this morning is 6.9 patient will be ordered 1 unit of packed RBCs to be transfused today. She is now off aspirin and Plavix. She has had increased bleeding with blood clots this morning. Son is waiting for determination on Saturday from the surgeon at [facility] if patient can be sent therefore surgical intervention. Patient remains pleasantly confused without any complaints. According to nursing, patient has had a couple loose stools today. 06/27: Patient remains pleasantly confused. Patient is in a sitter at the bedside until her son arrived. Per the patient's son, he left a message with the surgeon at [facility] and is awaiting a call back. Hemoglobin is 8.1. She continues to have bladder/vaginal waiting with clots. Plan to monitor overnight. At this point, patient may not be a candidate for ECF as there is concern she'll continue to bleed and she is hospice care. Patient son may entertain hospice care at some point here in the near future. 06/28: Patient is sleeping in bed apparently she did not sleep much during the night. Patient is normally sitting up in a chair and is active. Hemoglobin today is 8.7. Patient has been off Plavix since June 26. Ammonia level will be checked. Otherwise electrolytes are essentially normal. Blood sugars running between 140 and 205. She has been afebrile, pulse ox 94% on room air, heart rate ran between 96 and 113. No update from the patient's son regarding plan at [facility]. 06/29: Repeat hemoglobin is 8.3. Patient woke up and was her normal mentation yesterday after we left. Bleeding has decreased considerably. No update from patient's son regarding surgery at [facility] one dose ordered. Plan for discharge tomorrow to [facility]. ROS: Not obtained due to patient's mental status Objective - Vital Signs Vital signs: Vital Signs Temp 97.3 F L 06/29/18 05:00 Pulse 77 06/29/18 05:00 Resp 16 06/29/18 05:00 BP 127/63 06/29/18 05:00 Pulse Ox 92 L 06/29/18 05:00 Intake & Output 06/28/18 06/29/18 06/29/18 18:59 06:59 18:59 Intake Total 1430 Output Total 3 1 Balance -3 1429 Weight 76.5 kg 76.6 kg Intake: Oral 1430 Output: Stool 3 1 Other: Voiding Method Toilet Toilet Diaper Diaper Incontinent Incontinent # Voids 12 6 - Exam General appearance: Present: average body habitus, cooperative, no acute distress while in bed. Patient is awake, sitting up in bed, pleasantly confused. - EENT Eyes: Present: anicteric sclerae, EOMI, PERRLA ENT: Present: hearing grossly normal, NA/AT - Neck Neck: Present: normal ROM. Absent: lymphadenopathy - Respiratory Respiratory: bilateral: CTA, negative: diminished, dullness, rales, rhonchi, wheezing, prolonged expiration - Cardiovascular Rhythm: regular Heart sounds: normal: S1, S2 Abnormal Heart Sounds: Absent: systolic murmur, diastolic murmur, rub, S3 Gallop , S4 Gallop, click, other - Gastrointestinal General gastrointestinal: Present: normal bowel sounds, soft. Absent: organomegaly, tenderness Bloody urine and blood clots/vaginal bleeding--decreased. - Integumentary Integumentary: Present: normal turgor, pale - Neurologic Neurologic: Present: CNII-XII intact - Musculoskeletal Musculoskeletal: Present: generalized weakness - Psychiatric Psychiatric Comment(s): Alert to self. Answers her symptoms questions appropriately. - Labs CBC & Chem 7: 06/29/18 06:45 06/28/18 06:31 Labs: Abnormal Lab Results - Last 24 Hours (Table) 06/28/18 06/28/18 06/28/18 Range/Units 12:01 17:15 20:26 POC Glucose (mg/dL) 150 H 188 H 173 H (75-99) mg/dL Assessment and Plan Plan: 1. Gross hematuria and vaginal bleeding with acute blood loss anemia secondary to newly diagnosed bladder cancer. Status post transfusion of total 6 units packed RBCs. Consult with Dr. Martinez appreciated. Radiation oncology is following with radiation treatment scheduled. Patient had cystoscopy, evacuation of clot, transverse resection of bladder tumor, exploratory laparotomy with closure of bladder laceration in 04/2018. CT abd with new hydronephrosis on the right. I and O monitoring. Radiation treatment to continue. Dr. Martinez performed repeat cystoscopy, report above. There is plan for surgery at [facility] depending on how patient progresses. Awaiting further determination from the surgeon at [facility]. 2. Acute inferior wall STEMI involving RCA requiring drug-eluting stent to 99% of stenosis down to 0% successful stenting, performed 05/06/2018 Dr. Marie patient currently is on Lipitor 80 mg daily, metoprolol, Plavix discontinued. Cardiology consult appreciated. 3. Acute on Chronic blood loss anemia, status post total of 10 units of packed red blood cells. 4. Acute UTI with hematuria. Urine culture is negative no growth after 48 hours. Levofloxacin will be DC'd 5. Acute abdominal pain in the lower quadrant of the abdomen CT abdomen ordered with oral contrast no IV contrast needed to evaluate abdominal etiology. No diarrhea. 6. Neurocognitive deficits with memory loss, on Namenda 10 mg PAD, patient is not on any anticholinesterase medication. 7. Insomnia, schedule melatonin 6 mg at bedtime. 8. Hypertensive Vascular disease. Continue atenolol. 9. DVT prophylaxis, high risk known bladder cancer, with SCDs 10. Diabetes mellitus type 2 insulin requiring, uncontrolled with hypoglycemia. continue Lantus 35 units reduced from 55 units continue NovoLog scale, hemoglobin A1c is 7.0. 11. Acute kidney injury secondary to ATN/ dehydration secondary to hemodynamic instability with CKD stage III nephrotoxins will be avoided 12. Dysthymia, Zoloft 50 mg daily 13.Restless leg, on Mirapex 0. 25 mg daily when necessary, increase has helped with lower leg shaking. 14. Metabolic encephalopathy with underlying dementia likely secondary to delirium from being in the hospital. Patient was also anemic and have her infection contributing to the encephalopathy. Seroquel initiated 12.5 mg daily at bedtime. Son informed of the side effect of Seroquel of sudden being on the medication and agrees on continuing it for now 15. Moderate protein calorie malnutrition on Glucerna 3 times daily. CODE STATUS: Discussed CODE STATUS with the patient's son and patient is a full code Discharge plan: [facility] on Saturday under the care of Dr. Briseno. Impression and plan of care have been directed as dictated by the signing physician. Kylah Begum nurse practitioner acting as scribe for signing physician.
[2018-06-29 11:06] LABS: Glucose,Whole Blood 139 mg/dL (75-99)
[2018-06-29 17:07] LABS: Glucose,Whole Blood 189 mg/dL (75-99)
[2018-06-29 20:12] LABS: Glucose,Whole Blood 152 mg/dL (75-99)
[2018-06-29] MEDS: QUEtiapine 25 MG TAB PO SCH (20:17)
[2018-06-30 03:20] LABS: Glucose,Whole Blood 129 mg/dL (75-99)
[2018-06-30] MEDS: ACETAMINOPHEN TAB 325 MG TAB PO SCH ×4 (05:38→21:18)
[2018-06-30 06:55] LABS: Glucose,Whole Blood 173 mg/dL (75-99)
[2018-06-30 08:09] LABS: Anisocytosis Slight; HCT 26.2 % (34.0-46.0); HGB 8.2 gm/dL (11.4-16.0); Hypochromasia Moderate; MCH 30.4 pg (25.0-35.0); MCHC 31.4 g/dL (31.0-37.0); MCV 96.9 fL (80.0-100.0); Macrocytosis Slight; Mean Platelet Volume 6.2; Platelet Count 318 k/uL (150-450); RDW 16.3 % (11.5-15.5); WBC 7.1 k/uL (3.8-10.6)
[2018-06-30] MEDS: PRAVASTATIN SODIUM 40 MG TAB PO SCH (08:30)
[2018-06-30] MEDS: PANTOPRAZOLE 40 MG TABLET PO SCH (08:30)
[2018-06-30] MEDS: INSULIN ASPART 100 UNIT/ML 1 ML 10 ML VIAL SQ SCH ×4 (08:30→21:18)
[2018-06-30] MEDS: METOPROLOL TARTRATE 50 MG TAB PO SCH ×2 (08:30→21:19)
[2018-06-30] MEDS: MEMANTINE 10 MG TAB PO SCH ×2 (08:30→21:19)
[2018-06-30] MEDS: PRAMIPEXOLE 0.25 MG TAB PO SCH (08:30)
[2018-06-30] MEDS: SERTRALINE 50 MG TAB PO SCH (08:30)
--- NOTE | 2018-06-30 09:36 | P.DS ---
Providers Date of admission: 06/09/18 21:23 Expected date of discharge: 06/30/18 Attending physician: Hemanth Mejia MD Consults: 06/25/18 12:19 Consult Physician Routine Consulting Provider: Minerva Block Consult Reason/Comments: ami, stent, d/c plavix? Do you want consulting provider notified?: Yes 06/10/18 13:29 Consult Physician Routine Consulting Provider: Narendra Martinez Consult Reason/Comments: hematuria Do you want consulting provider notified?: Yes 06/12/18 09:15 Consult Physician Routine Consulting Provider: Radiation Instrument Tech Consult Reason/Comments: bladder cancer, persistent hematuria Do you want consulting provider notified?: Yes Primary care physician: [facility] Hospital Course: This is a 78-year-old pleasant female patient of Dr. Joshua Roper and Dr. Martinez underlying history of dementia, diabetes mellitus type 2, hypertension, hyperlipidemia, who is currently a very poor historian. He was last admitted on 05/07 for a prolonged hospital course and was treated for acute inferior wall STEMI involving the RCA requiring drug-eluting stent, patient also underwent cystoscopy for hematuria ending up having exploratory laparotomy with closure of bladder laceration post cystoscopy with history of bladder cancer which is newly diagnosed and eventually need radiation, hypertensive vascular disease, dysthymia, neurocognitive deficits with memory loss secondary to dementia comes in with gross hematuria and nausea and vomiting with increased weakness for the past 3-4 days. On evaluation patient denies having nausea or vomiting but does complain of stomach upset. She is very drowsy and falls back to sleep. No known evaluation of the blood work done in the ER , patient had a hemoglobin of 8.1 and leukocytosis 15.2, creatinine 1.58, BUN [address] head was done which was negative for acute changes chest x-ray negative for any acute changes. Urinalysis suggestive of more than 182 RBCs and WBCs 154. Vital signs assessed in the ER temp 99, blood pressure 100/80, pulse is 78. She does have a catheter patient was admitted for acute UTI, dehydration and gastroenteritis. Urology consult placed 06/11 patient examined at bedside oriented 1. Talked to the son in length about patient's ongoing hematuria. Urine cultures are still pending him continue levofloxacin for now. Patient continues to have vaginal bleeding. Dr. Martinez is of air and is planning to talk to radiation oncology and see if radiation could be started sooner. CT abdomen and pelvis was obtained that suggested right-sided hydronephrosis with bladder mass for him to 2 cm on the posterior wall of urinary bladder no ureteral calculus seen on the right side field pulmonary infiltrate and atelectasis is seen with the per pleural effusion. Chest x-ray 2 view will be obtained. Patient also had an episode of agitation in the morning with jitteriness in her arms and legs. One dose of Ativan was given. Hemoglobin improved to 8 after transfusion 06/12 patient has some confusion this morning. Hemoglobin has dropped to 7.[address] Rudea is taking patient for radiation today since there is no improvement in the hematuria. Due to patient's underlying dementia and increasing confusion will initiate patient on Seroquel low dose at bedtime. QT interval is normal will repeat EKG to assess for QT prolongation. Nurses instructed to minimize the use of Ativan needed. 06/13 patient continue has some confusion/delirium since she requires Ativan for agitation. Hemoglobin dropped to 6.1 this morning status post 1 unit PRBC. Patient is receiving radiation due to today followed by radiation tomorrow. Continues to have vaginal bleeding with clots. Patient is oriented 1. Continue CBC checked every 12. Patient complains of increased shakiness in the lower extremities increased Mirapex 2.25. Patient slept well on Seroquel 12.50 continue while patient of Hospital plan is to finish radiation therapy on Saturday with possible rehab unless patient decompressed and states will consider comfort care. Patient is too confused to contribute to physical therapy right now 06/14: Patient is resting in bed. Still having some confusion. Patient did pull out her IV early this morning by bringing her arm against the side. A new IV has been initiated. Her hemoglobin is at 8.2 at this time 1 unit of packed her blood cells given. Patient states that she had slept well last night she does want to get up on her own. Patient continues to be confused able to answer some questions appropriately. She is scheduled for radiation therapy today. 06/15: Patient is sitting up in a chair today. She still has some confusion able to answer some questions appropriately. Patient continues to have hematuria and vaginal bleeding. She was transfused in the night hemoglobin was 6.8. We will continue to monitor CBCs every 12 hours. Patient is scheduled for radiation therapy again on Saturday. She has completed her yesterday therapy without any complaints. 06/16: Patient is sitting up in a chair. Patient seems to have less confusion today able to answer questions appropriately. Patient knows where she is today compared to yesterday. However she still has some bouts of confusion during interview. Hemoglobin this morning was 7.0 we will continue to monitor. Patient denies any complaints at this time no chest pain, difficulty breathing, fever, or lightheadedness. Patient continues to have hematuria and vaginal bleeding. 06/17/18: Patient is resting comfortably in bed. Patient is alert to self only today. She is able to answer some questions with minimal confusion. Last night she had a hemoglobin of 6.6 her she received 2 units of packed red blood cells. Hemoglobin this morning was 9.4. Patient continues to have hematuria and vaginal bleeding. Patient denies any chest pain, difficulty breathing, fever or lightheadedness at this time. Patient is able to be up in her room with assistance. 06/18: Hemoglobin 7.6. Patient is status post a total of 6 units of packed RBCs transfusion during this hospitalization. Dr. Martinez will perform bedside cystoscopy tomorrow. Patient is scheduled for radiation treatment tomorrow and that should complete her course. Patient denies any complaints of pain. Patient is sitting up in a chair today. She remains pleasantly confused. Physical therapy has recommended subacute rehab. The son has agreed for [facility] and social work is following. 06/19: Patient completed radiation treatment this morning. Dr. Martinez is planning for cystoscopy this afternoon. Hemoglobin 7.3. Sodium 129, CO2 20, BUN 17 creatinine 1.07. Pulse ox is 98% on room air. 06/20: Patient underwent bedside cystoscopy with Dr. Martinez yesterday that found muscle invasive bladder cancer eroding the vagina causing persistent bleeding. This bleeding has not been adequately controlled by radiation. Dr. Martinez discussed case with radiation oncologist with plan for up to 10 radiation treatments and that most likely the bleeding would be controlled but for short term only. Dr. Martinez discussed with the son regarding returning to [facility] to consider cystectomy. If aggressive treatment such as cystectomy is not considered, patient is a hospice candidate. Repeat hemoglobin is 7.8 after 1 unit of packed RBCs for hemoglobin of 6.1 last evening. 06/21: Patient denies any new complaints. No change in plan at this time. Repeat lab work is pending. She is now total of 8 units of packed RBCs transfused. 06/22: Patient continues to have bleeding with urination including blood clots. Morning labs are not available. Blood sugars running between 137 and 182. Patient denies having any dizziness. She denies any abdominal cramps, abdominal pain, flank pain. IV fluids will be resumed 06/23: Patient underwent radiation treatment this morning with plan for repeat on Saturday and Saturday. Her hemoglobin this morning is 6.5 and has been ordered for transfusion of one unit of packed RBCs. Radiation oncology has recommended that if patient does not get improvement over the next 1-2 treatment still be necessary to discontinue Plavix. Aspirin his are been discontinued. 06/24: Repeat hemoglobin is 7.8 today. Patient is now status post total of 9 units of packed RBCs. She is undergone radiation treatment this morning. Await decision regarding Plavix. Most likely this will be discontinued. Telemetry will be discontinued. PT and OT to work with the patient. Per patient's son, there is surgery planned with her urologist at [facility] at the earliest time of July 07. 06/25: CODE STATUS discussed with the patient's son and he wishes patient to be a full code. Regarding Plavix, cardiology consult appreciated and Plavix will be discontinued. Dr. JORGE Block has discussed risk with the patient and her son. Patient has a follow-up appointment with [facility] on July 10. At this point , radiation treatment is completed and awaiting determination of patient's candidate for surgery at [facility]. Bleeding from bladder/vagina has decreased significantly today. She is ambulating with a walker and appears to be steady. Repeat hemoglobin this morning is 8.5. Sodium 136, potassium 4.2 , chloride 110, CO2 18, BUN 14 creatinine 1.04. IV fluids will be discontinued. Anticipate discharge in the next 24-48 hours. 06/26: Hemoglobin this morning is 6.9 patient will be ordered 1 unit of packed RBCs to be transfused today. She is now off aspirin and Plavix. She has had increased bleeding with blood clots this morning. Son is waiting for determination on Saturday from the surgeon at [facility] if patient can be sent therefore surgical intervention. Patient remains pleasantly confused without any complaints. According to nursing, patient has had a couple loose stools today. 06/27: Patient remains pleasantly confused. Patient is in a sitter at the bedside until her son arrived. Per the patient's son, he left a message with the surgeon at [facility] and is awaiting a call back. Hemoglobin is 8.1. She continues to have bladder/vaginal waiting with clots. Plan to monitor overnight. At this point, patient may not be a candidate for ECF as there is concern she'll continue to bleed and she is hospice care. Patient son may entertain hospice care at some point here in the near future. 06/28: Patient is sleeping in bed apparently she did not sleep much during the night. Patient is normally sitting up in a chair and is active. Hemoglobin today is 8.7. Patient has been off Plavix since June 26. Ammonia level will be checked. Otherwise electrolytes are essentially normal. Blood sugars running between 140 and 205. She has been afebrile, pulse ox 94% on room air, heart rate ran between 96 and 113. No update from the patient's son regarding plan at [facility]. 06/29: Repeat hemoglobin is 8.3. Patient woke up and was her normal mentation yesterday after we left. Bleeding has decreased considerably. No update from patient's son regarding surgery at [facility] one dose ordered. Plan for discharge tomorrow to [facility]. 06/30. Repeat hemoglobin is 8.2. Bleeding remains improved. She denies any new complaints. She remains afebrile, HR 90-100, BP 120/61, Pulse-ox 91-95% on room air. Patient's son is not here. Patient will be discharged to [facility] today in stable condition. Discharge diagnoses: 1. Gross hematuria and vaginal bleeding with acute blood loss anemia secondary to newly diagnosed bladder cancer. Status post 2. Acute inferior wall STEMI involving RCA requiring drug-eluting stent to 99% of stenosis down to 0% successful stenting, performed 05/06/2018 Dr. Marie 3. Acute on chronic blood loss anemia, status post total of 10 units of packed red blood cells. 4. Acute UTI rule out 5. Acute abdominal pain in the lower quadrant 6. Neurocognitive deficits with memory loss 7. Insomnia 8. Hypertensive Vascular disease. 9. DVT prophylaxis, 10. Diabetes mellitus type 2 insulin requiring, uncontrolled with hypoglycemia. 11. Acute kidney injury secondary to ATN/ dehydration secondary to hemodynamic instability with CKD stage III 12. Dysthymia 13. Restless leg 14. Metabolic encephalopathy with underlying dementia likely secondary to delirium from being in the hospital, resolved. 15. Moderate protein calorie malnutrition on Glucerna 3 times daily. Discharge plan: [facility] under the care of Dr. Briseno. Impression and plan of care have been directed as dictated by the signing physician. Kylah Begum nurse practitioner acting as scribe for signing physician. Patient Condition at Discharge: Good Plan - Discharge Summary Discharge Rx Participant: Yes New Discharge Prescriptions: New Acetaminophen Tab [Tylenol] 650 mg PO Q6HR tab QUEtiapine [SEROquel] 12.5 mg PO HS tab Metoprolol Tartrate [Lopressor] 50 mg PO BID tab Continue Famotidine [Pepcid] 20 mg PO BID Sertraline [Zoloft] 50 mg PO DAILY Pramipexole [Mirapex] 0.125 mg PO DAILY PRN PRN Reason: RESTLESS LEGS Memantine [Namenda] 10 mg PO BID Nitroglycerin Sl Tabs [Nitrostat] 0.4 mg SUBLINGUAL Q5M PRN tab PRN Reason: Chest Pain Pravastatin Sodium [Pravachol] 40 mg PO DAILY Discontinued Atenolol [Tenormin] 25 mg PO DAILY Clopidogrel [Plavix] 75 mg PO DAILY tab Tumeric (Unknown Dose) 1 tab PO DAILY Donepezil [Aricept] 10 mg PO HS Losartan/Hydrochlorothiazide [Hyzaar 100-25 Tablet] 1 tab PO DAILY Insulin Glargine [Lantus] 55 unit SQ DAILY Ubidecarenone [Co Q-10] 100 mg PO DAILY Discharge Medication List Famotidine [Pepcid] 20 mg PO BID 05/06/18 [History] Memantine [Namenda] 10 mg PO BID 05/06/18 [History] Pramipexole [Mirapex] 0.125 mg PO DAILY PRN 05/06/18 [History] Sertraline [Zoloft] 50 mg PO DAILY 05/06/18 [History] Nitroglycerin Sl Tabs [Nitrostat] 0.4 mg SUBLINGUAL Q5M PRN tab 05/16/18 [Rx] Pravastatin Sodium [Pravachol] 40 mg PO DAILY 06/09/18 [History] Acetaminophen Tab [Tylenol] 650 mg PO Q6HR tab 06/19/18 [Rx] QUEtiapine [SEROquel] 12.5 mg PO HS tab 06/19/18 [Rx] Metoprolol Tartrate [Lopressor] 50 mg PO BID tab 06/30/18 [Rx] Follow up Appointment(s)/Referral(s): You Marie MD [STAFF PHYSICIAN] - 2 Weeks Praneeth Lewis MD [Primary Care Provider] - 1 Week (after discharge from [facility]) Obi Rueda MD [STAFF PHYSICIAN] - 07/10/18 1:30 pm (Follow Up appt is at [facility] Radiation Oncology on 07/10 at 1:30 pm. Call if any questions or need to change Appointment ) Narendra Martinez MD [STAFF PHYSICIAN] - 1 Week [facility] Visiting Nurse, [NON-STAFF] - 1 Week Discharge Disposition: TRANSFER TO SNF/ECF
[2018-06-30 10:57] LABS: Glucose,Whole Blood 184 mg/dL (75-99)
[2018-06-30 12:01] VITALS: BMI 32.5
[2018-06-30 17:56] LABS: Glucose,Whole Blood 133 mg/dL (75-99)
[2018-06-30 20:24] LABS: Glucose,Whole Blood 174 mg/dL (75-99)
[2018-06-30] MEDS: QUEtiapine 25 MG TAB PO SCH (21:19)
[2018-06-30 22:07] VITALS: RESP 17
[2018-07-01 04:55] VITALS: BP 106/66; PULSE 89; TEMP 98.2
[2018-07-01] MEDS: ACETAMINOPHEN TAB 325 MG TAB PO SCH (05:43)
[2018-07-01 07:01] LABS: Glucose,Whole Blood 126 mg/dL (75-99)
[2018-07-01 07:44] LABS: Anisocytosis Slight; HCT 27.3 % (34.0-46.0); HGB 8.5 gm/dL (11.4-16.0); Hypochromasia Moderate; MCH 30.1 pg (25.0-35.0); MCHC 31.1 g/dL (31.0-37.0); MCV 96.7 fL (80.0-100.0); Macrocytosis Slight; Mean Platelet Volume 6.4; Platelet Count 302 k/uL (150-450); RBC 2.82 m/uL (3.80-5.40); RDW 16.1 % (11.5-15.5); WBC 7.3 k/uL (3.8-10.6)
--- NOTE | 2018-07-01 07:48 | P.PN ---
Subjective Progress Note Date: 07/01/18 The patient has invasive cancer of the bladder into the vagina. She has had persistent bleeding despite radiation. Her son is been in consultation with [facility] as he saw a urologist there. There is still deciding whether a cystectomy is in order. I explained to the son there is nothing more we can do here. If the [facility] declined cystectomy then she probably would be hospice care. Objective - Vital Signs Vital signs: Vital Signs Temp 98.2 F 07/01/18 04:54 Pulse 89 07/01/18 04:54 Resp 17 07/01/18 04:54 BP 106/66 07/01/18 04:54 Pulse Ox 92 L 07/01/18 04:54 Intake & Output 06/30/18 07/01/18 07/01/18 18:59 06:59 18:59 Intake Total 500 Output Total 1 Balance 499 Weight 75.5 kg 75.7 kg Intake: Oral 500 Output: Stool 1 Other: Voiding Method Toilet Toilet Diaper Diaper Incontinent Incontinent # Voids 10 - Labs CBC & Chem 7: 06/30/18 07:16 06/28/18 06:31 Labs: Abnormal Lab Results - Last 24 Hours (Table) 06/30/18 06/30/18 06/30/18 Range/Units 07:16 10:56 17:55 RBC 2.70 L (3.80-5.40) m/uL Hgb 8.2 L (11.4-16.0) gm/dL Hct 26.2 L (34.0-46.0) % RDW 16.3 H (11.5-15.5) % POC Glucose (mg/dL) 184 H 133 H (75-99) mg/dL 06/30/18 07/01/18 Range/Units 19:53 07:00 RBC (3.80-5.40) m/uL Hgb (11.4-16.0) gm/dL Hct (34.0-46.0) % RDW (11.5-15.5) % POC Glucose (mg/dL) 174 H 126 H (75-99) mg/dL
[2018-07-01 08:18] LABS: Albumin 2.2 g/dL (3.5-5.0); Calcium 8.1 mg/dL (8.4-10.2); Total Bilirubin 0.5 mg/dL (0.2-1.3); Total Protein 4.4 g/dL (6.3-8.2)
[2018-07-01] MEDS: INSULIN ASPART 100 UNIT/ML 1 ML 10 ML VIAL SQ SCH (09:20)
[2018-07-01] MEDS: PRAMIPEXOLE 0.25 MG TAB PO SCH (09:22)
[2018-07-01] MEDS: PANTOPRAZOLE 40 MG TABLET PO SCH (09:22)
[2018-07-01] MEDS: MEMANTINE 10 MG TAB PO SCH (09:22)
[2018-07-01] MEDS: SERTRALINE 50 MG TAB PO SCH (09:22)
[2018-07-01] MEDS: PRAVASTATIN SODIUM 40 MG TAB PO SCH (09:22)
[2018-07-01] MEDS: METOPROLOL TARTRATE 50 MG TAB PO SCH (09:22)
== END 2018-07-01 11:20 | DRG 686 ==
LOC: EC 15:58 → 4MS4W 21:23 → 3NMEDONC 06-10 14:29
PROVIDERS: ADMIT Internal Medicine; ATTEND Internal Medicine
PROC: DTY27ZZ Contact Radiation of Bladder (ICD-10-PCS; principal; 2018-06-12)
PROC: 30233N1 Transfusion of Nonautologous Red Blood Cells into Peripheral Vein, Percutaneous Approach (ICD-10-PCS; 2018-06-16)
PROC: 0TJB8ZZ Inspection of Bladder, Via Natural or Artificial Opening Endoscopic (ICD-10-PCS; 2018-06-19)
DX: C67.4 Malignant neoplasm of posterior wall of bladder (principal); G93.41 Metabolic encephalopathy; N17.0 Acute kidney failure with tubular necrosis; D62 Acute posthemorrhagic anemia; E44.0 Moderate protein-calorie malnutrition; N39.0 Urinary tract infection, site not specified; J98.11 Atelectasis; E11.22 Type 2 diabetes mellitus with diabetic chronic kidney disease; E11.65 Type 2 diabetes mellitus with hyperglycemia; E78.5 Hyperlipidemia, unspecified; E86.0 Dehydration; F02.80 Dementia in other diseases classified elsewhere, unspecified severity, without behavioral disturbance, psychotic disturbance, mood disturbance, and anxiety; F34.1 Dysthymic disorder; G25.81 Restless legs syndrome; G30.9 Alzheimer's disease, unspecified; G47.00 Insomnia, unspecified; I12.9 Hypertensive chronic kidney disease with stage 1 through stage 4 chronic kidney disease, or unspecified chronic kidney disease; I25.10 Atherosclerotic heart disease of native coronary artery without angina pectoris; I25.2 Old myocardial infarction; K52.9 Noninfective gastroenteritis and colitis, unspecified; N18.3 Chronic kidney disease, stage 3 (moderate); Z79.02 Long term (current) use of antithrombotics/antiplatelets; Z79.4 Long term (current) use of insulin; Z79.82 Long term (current) use of aspirin; Z79.899 Other long term (current) drug therapy; Z80.0 Family history of malignant neoplasm of digestive organs; Z80.1 Family history of malignant neoplasm of trachea, bronchus and lung; Z87.891 Personal history of nicotine dependence; Z95.5 Presence of coronary angioplasty implant and graft; N93.8 Other specified abnormal uterine and vaginal bleeding; R45.1 Restlessness and agitation; E66.9 Obesity, unspecified; Z68.32 Body mass index [BMI] 32.0-32.9, adult; Z88.0 Allergy status to penicillin; I95.9 Hypotension, unspecified; R31.0 Gross hematuria
CPT/HCPCS: 36415; 70450; 71046; 74176; 77290; 77307; 77334; 77336; 77412; 77417; 80048; 80053; 81001; 82140; 82550; 82553; 83036; 83605; 83735; 83880; 84100; 84484; 85025; 85027; 85610; 85730; 86850; 86900; 86901; 86920; 87086; 87502; 93005; 93306; 96361; 96365; 96366; 96375; 99285

== ENCOUNTER 2018-07-13 22:04 | Emergency (ER) | payer MEDICARE, BC ==
[2018-07-13 22:32] VITALS: BP 127/76; PULSE 92; RESP 16; TEMP 97.2
--- NOTE | 2018-07-13 22:36 | ED ---
Fall HPI - General Chief Complaint: Fall Stated Complaint: Fall Time Seen by Provider: 07/13/18 22:19 Source: patient, family, EMS Mode of arrival: EMS - History of Present Illness Initial Comments: Patient is a 78-year-old female who presents with a chief complaint of a fall at home. This happened around 9:00. Patient states that she does not remember the fall however she told her son who is with her in the emergency department that she tripped over herself. The patient states that she hit her head but does not know on what. She was able to get herself up and call her son. The patient cannot recall she lost consciousness or not. Patient has a history of bladder cancer, currently undergoing treatment. Review of patient's records that were brought with her reveals that as a today she is on 2 mg of Coumadin, but patient denies taking coumadin currently. She has a history of [place] 5 weeks ago. In the emergency department, patient is in no acute distress, she is alert and oriented. She denies any pain except for her forehead. - Related Data Home Medications Medication Instructions Recorded Confirmed Famotidine [Pepcid] 20 mg PO BID@0900,209905/06/18 07/13/18 Memantine [Namenda] 10 mg PO BID@0900,209905/06/18 07/13/18 Pramipexole [Mirapex] 0.125 mg PO DAILY PRN 05/06/18 07/13/18 Sertraline [Zoloft] 50 mg PO DAILY@0900 05/06/18 07/13/18 Pravastatin Sodium [Pravachol] 40 mg PO DAILY@0900 06/09/18 07/13/18 INSULIN LISPRO (humaLOG) [humaLOG] 5 units SQ AC-TID 07/13/18 07/13/18 Insulin Glargine,Hum.rec.anlog 22 unit SQ HS@209907/13/18 07/13/18 [Basaglar Kwikpen U-100] Lactose-Reduced Food [Ensure Plus] 120 ml PO BID@999,209907/13/18 07/13/18 Metoprolol Tartrate [Lopressor] 50 mg PO BID@0900,209907/13/18 07/13/18 Previous Rx's Medication Instructions Recorded Nitroglycerin Sl Tabs [Nitrostat] 0.4 mg SUBLINGUAL Q5M PRN tab 05/16/18 Acetaminophen Tab [Tylenol] 650 mg PO Q6HR tab 06/19/18 Allergies Allergy/AdvReac Type Severity Reaction Status Date / Time Penicillins AdvReac Mild Unknown Verified 07/13/18 22:41 Review of Systems ROS Statement: Those systems with pertinent positive or pertinent negative responses have been documented in the HPI. ROS Other: All systems not noted in ROS Statement are negative. Past Medical History Past Medical History: Coronary Artery Disease (CAD), Cancer, Chest Pain / Angina , Dementia, Diabetes Mellitus, Hyperlipidemia, Hypertension, Memory Impairment, Myocardial Infarction ([place]), Osteoarthritis (OA) Additional Past Medical History / Comment(s): Restless leg syndrome, Bladder Cancer with Gross hematuria dementia Last Myocardial Infarction Date:: 05/06/18 History of Any Multi-Drug Resistant Organisms: None Reported Past Surgical History: Cholecystectomy, Heart Catheterization With Stent Additional Past Surgical History / Comment(s): Arthroscopic knee surgery left, Left ankle surgery 09/17/2014, Past Anesthesia/Blood Transfusion Reactions: No Reported Reaction Date of Last Stent Placement:: 05/06/18 Past Psychological History: No Psychological Hx Reported Smoking Status: Former smoker Past Alcohol Use History: None Reported Past Drug Use History: None Reported - Past Family History Father Family Medical History: Dementia Additional Family Medical History / Comment(s): ?mi Mother Family Medical History: Cancer (Pancreas) Sister(s) Family Medical History: Cancer (Lung cancer) Brother(s) Family Medical History: No Reported History Son(s) Family Medical History: No Reported History (Healthy) General Exam Limitations: no limitations General appearance: alert, in no apparent distress Head exam: Present: normocephalic, other (Patient has hematoma over her left forehead. There are no other signs of trauma on the head or neck.) Eye exam: Present: normal appearance, PERRL, EOMI Pupils: Absent: irregular ENT exam: Present: normal exam Neck exam: Present: normal inspection Respiratory exam: Present: normal lung sounds bilaterally. Absent: respiratory distress, wheezes Cardiovascular Exam: Present: regular rate, normal rhythm GI/Abdominal exam: Present: soft. Absent: distended, tenderness Rectal exam: Present: deferred Extremities exam: Present: normal inspection Back exam: Present: normal inspection Neurological exam: Present: alert, oriented X3 Psychiatric exam: Present: normal affect, normal mood Skin exam: Present: warm, dry, intact Course Vital Signs 07/13/18 22:06 Temperature 97.2 F L Pulse Rate 92 Respiratory 16 Rate Blood Pressure 127/76 O2 Sat by Pulse 97 Oximetry Medical Decision Making - Medical Decision Making Chief complaint of a fall, not on Coumadin. On initial evaluation, vital signs are stable, patient is in no acute distress. She is alert and oriented. She is a hematoma over her left forehead but denies any other pain. Patient to be evaluated with labs including troponins, urinalysis. Patient will be sent for a computed tomography scan without contrast of the head and neck. 11:32 PM Lab evaluation of this patient thus far is unremarkable. Hemoglobin today is 10.0 which is improved from 8.5 on July 01. X-ray today shows a right lower lobe infiltrate which is larger when compared to previous study. Patient denies any fever or cough however. I have a very low suspicion for pneumonia and favor atalectasis vs. pleural effusion. EKG performed at 2320 shows sinus rhythm with a rate of 93 bpm. W[place] interval is mildly short at 108 ms, symptoms are otherwise unremarkable. No acute signs of ischemia. Computed tomography scan of the head and neck is unremarkable. INR is 1.1. 12:25 AM xray of the pelvis shows no abnormality. at this time, patient is stable for discharge home. she and her son were instructed to follow up with PCP in 1-2 days, return to the ED if sx worsen or change. patient will be transported home by EMS. - Lab Data Result diagrams: 07/13/18 22:30 07/13/18 22:30 Lab Results 07/13/18 07/13/18 07/13/18 Range/Units 22:30 22:30 22:30 WBC 10.3 (3.8-10.6) k/uL RBC 3.46 L (3.80-5.40) m/uL Hgb 10.0 L D (11.4-16.0) gm/dL Hct 32.7 L (34.0-46.0) % MCV 94.5 (80.0-100.0) fL MCH 29.0 (25.0-35.0) pg MCHC 30.7 L (31.0-37.0) g/dL RDW 15.5 (11.5-15.5) % Plt Count 227 (150-450) k/uL Neutrophils % 83 % Lymphocytes % 10 % Monocytes % 4 % Eosinophils % 1 % Basophils % 0 % Neutrophils # 8.5 H (1.3-7.7) k/uL Lymphocytes # 1.0 (1.0-4.8) k/uL Monocytes # 0.4 (0-1.0) k/uL Eosinophils # 0.1 (0-0.7) k/uL Basophils # 0.0 (0-0.2) k/uL Hypochromasia Slight PT 11.3 (9.0-12.0) sec INR 1.1 (<1.2) Sodium 137 (137-145) mmol/L Potassium 4.0 (3.5-5.1) mmol/L Chloride 107 (98-107) mmol/L Carbon Dioxide 23 (22-30) mmol/L Anion Gap 7 mmol/L BUN 31 H (7-17) mg/dL Creatinine 1.30 H (0.52-1.04) mg/dL Est GFR (CKD-EPI)AfAm 45 (>60 ml/min/1.73 sqM) Est GFR (CKD-EPI)NonAf 39 (>60 ml/min/1.73 sqM) Glucose 101 H (74-99) mg/dL Calcium 7.9 L (8.4-10.2) mg/dL Total Bilirubin 0.4 (0.2-1.3) mg/dL AST 27 (14-36) U/L ALT 33 (9-52) U/L Alkaline Phosphatase 77 (38-126) U/L Creatine Kinase 23 L (30-135) U/L Troponin I (0.000-0.034) ng/mL Total Protein 5.0 L (6.3-8.2) g/dL Albumin 2.4 L (3.5-5.0) g/dL 07/13/18 Range/Units 22:30 WBC (3.8-10.6) k/uL RBC (3.80-5.40) m/uL Hgb (11.4-16.0) gm/dL Hct (34.0-46.0) % MCV (80.0-100.0) fL MCH (25.0-35.0) pg MCHC (31.0-37.0) g/dL RDW (11.5-15.5) % Plt Count (150-450) k/uL Neutrophils % % Lymphocytes % % Monocytes % % Eosinophils % % Basophils % % Neutrophils # (1.3-7.7) k/uL Lymphocytes # (1.0-4.8) k/uL Monocytes # (0-1.0) k/uL Eosinophils # (0-0.7) k/uL Basophils # (0-0.2) k/uL Hypochromasia PT (9.0-12.0) sec INR (<1.2) Sodium (137-145) mmol/L Potassium (3.5-5.1) mmol/L Chloride (98-107) mmol/L Carbon Dioxide (22-30) mmol/L Anion Gap mmol/L BUN (7-17) mg/dL Creatinine (0.52-1.04) mg/dL Est GFR (CKD-EPI)AfAm (>60 ml/min/1.73 sqM) Est GFR (CKD-EPI)NonAf (>60 ml/min/1.73 sqM) Glucose (74-99) mg/dL Calcium (8.4-10.2) mg/dL Total Bilirubin (0.2-1.3) mg/dL AST (14-36) U/L ALT (9-52) U/L Alkaline Phosphatase (38-126) U/L Creatine Kinase (30-135) U/L Troponin I 0.016 (0.000-0.034) ng/mL Total Protein (6.3-8.2) g/dL Albumin (3.5-5.0) g/dL Disposition Clinical Impression: Fall, Hematoma Disposition: HOME SELF-CARE Condition: Good Instructions (If sedation given, give patient instructions): Fall Prevention for Older Adults (ED) Is patient prescribed a controlled substance at d/c from ED?: No Referrals: Praneeth Lewis MD [Primary Care Provider] - 1-2 days
[2018-07-13 22:48] LABS: Basophils % (A) 0 %; Eosinophils # (A) 0.1 k/uL (0-0.7); Eosinophils % (A) 1 %; HCT 32.7 % (34.0-46.0); Hypochromasia Slight; Lymphocytes % (A) 10 %; MCHC 30.7 g/dL (31.0-37.0); MCV 94.5 fL (80.0-100.0); Mean Platelet Volume 6.6; Monocytes # (A) 0.4 k/uL (0-1.0); Monocytes % (A) 4 %; Neutrophils # (A) 8.5 k/uL (1.3-7.7); Neutrophils % (A) 83 %; Platelet Count 227 k/uL (150-450); RBC 3.46 m/uL (3.80-5.40); RDW 15.5 % (11.5-15.5); WBC 10.3 k/uL (3.8-10.6)
[2018-07-13 22:51] LABS: INR 1.1 (<1.2); Prothrombin Time 11.3 sec (9.0-12.0)
--- NOTE | 2018-07-13 22:54 | CT ---
EXAMINATION TYPE: CT brain carl cortes con DATE OF EXAM: 07/13/2018 COMPARISON: 06/09/2018 HISTORY: Fall. Pain. CT DLP: 1348.7 mGycm Automated exposure control for dose reduction was used. TECHNIQUE: CT scan of the head and cervical spine are performed without contrast. FINDINGS: There is cerebral cortical atrophy. There is no mass effect nor midline shift. There is n o sign of intracranial hemorrhage. The calvarium is intact. The cervical vertebra have fairly normal alignment. There is a few millimeter subluxation at C3-4 and C4-5. Facet joints are intact. There is degenerative hypertrophic spurring from C3 to T1. There is n o compression fracture. The skull base is intact. IMPRESSION: Cerebral atrophy. No acute intracranial abnormality. No change compared to old exam. Spondylotic changes in the cervical spine. No fracture seen.
--- NOTE | 2018-07-13 22:56 | XR ---
EXAMINATION TYPE: XR chest 2V DATE OF EXAM: 07/13/2018 COMPARISON: 06/11/2018 HISTORY: Follow-up pleural effusion TECHNIQUE: Frontal and lateral views of the chest are obtained. FINDINGS: There is infiltrate and atelectasis in the right lower lobe with right pleural effusion. L eft lung is fairly clear. There is no heart failure. Thoracic aorta is atheromatous. IMPRESSION: Right lower lobe pneumonia and pleural fluid and atelectasis increased compared to last exam. No heart failure seen. There is improved atelectasis in the left upper lobe compared to old exa m.
[2018-07-13 23:03] LABS: Albumin 2.4 g/dL (3.5-5.0); Calcium 7.9 mg/dL (8.4-10.2); Total Bilirubin 0.4 mg/dL (0.2-1.3)
[2018-07-13] MEDS ORDERED: CEFEPIME 1 GM in SODIUM CHLORIDE 0.9% 50 ML IVPB STA (23:33)
[2018-07-13] MEDS ORDERED: SODIUM CHLORIDE 0.9% 1,000 ML IV ONE (23:33)
[2018-07-13] MEDS ORDERED: HYDROcodone/APAP 5-325MG 1 EACH TAB PO STA (23:34)
[2018-07-14] MEDS ORDERED: VANCOMYCIN 1,250 MG in SODIUM CHLORIDE 0.9% 250 ML IVPB ONE ×2
--- NOTE | 2018-07-14 00:05 | XR ---
EXAMINATION TYPE: XR pelvis AP view DATE OF EXAM: 07/13/2018 COMPARISON: NONE HISTORY: Right hip pain. Fall. TECHNIQUE: Single view FINDINGS: Pelvic ring appears intact. Proximal right femur and hip joint appear intact. Sacroiliac gael ints appear normal. There is osteopenia. IMPRESSION: No acute abnormality of the pelvis.
== END 2018-07-14 01:18 | disposition home or self-care (01) ==
LOC: EC 22:04
DX: S00.83XA Contusion of other part of head, initial encounter (principal); R91.8 Other nonspecific abnormal finding of lung field; I25.10 Atherosclerotic heart disease of native coronary artery without angina pectoris; F03.90 Unspecified dementia, unspecified severity, without behavioral disturbance, psychotic disturbance, mood disturbance, and anxiety; E11.9 Type 2 diabetes mellitus without complications; E78.5 Hyperlipidemia, unspecified; I10 Essential (primary) hypertension; I25.2 Old myocardial infarction; G25.81 Restless legs syndrome; Z85.51 Personal history of malignant neoplasm of bladder; Z95.5 Presence of coronary angioplasty implant and graft; Z87.891 Personal history of nicotine dependence; Z79.4 Long term (current) use of insulin; Z79.899 Other long term (current) drug therapy; Z88.0 Allergy status to penicillin; W01.10XA Fall on same level from slipping, tripping and stumbling with subsequent striking against unspecified object, initial encounter; Y92.009 Unspecified place in unspecified non-institutional (private) residence as the place of occurrence of the external cause
CPT/HCPCS: 36415; 70450; 71046; 72125; 72170; 80053; 82550; 84145; 84484; 85025; 85610; 93005; 96360; 99285